=== PATIENT | female | born 2000 | race Caucasian/White ===

== ENCOUNTER → 2024-08-27 | Outpatient (CLI) | payer BC, SELFPAY ==
[2024-08-27 12:33] LABS: Protein, Urine (Random) 9.6 mg/dL (0.0-12.0); Protein:Creat Ratio 68 mg/g CRE (0-200)
[2024-08-30 21:07] LABS: Chlamydia By Nucleic Acid AMP Negative (Negative); Gonococcus By Nucleic Acid AMP Negative (Negative)
== END | disposition home or self-care (01) ==
LOC: LABSPEC 11:46
PROVIDERS: Referring Provider Obstetrics & Gynecology; Visit Provider Obstetrics & Gynecology
DX: O09.90 Supervision of high risk pregnancy, unspecified, unspecified trimester (principal); Z3A.00 Weeks of gestation of pregnancy not specified; Z12.4 Encounter for screening for malignant neoplasm of cervix; R03.0 Elevated blood-pressure reading, without diagnosis of hypertension
CPT/HCPCS: 82570; 84156; 87086; 87491; 87591; 88175; G0145

== ENCOUNTER → 2024-09-28 | Outpatient (CLI) | payer SELFPAY ==
[2024-09-28 12:13] LABS: Absolute Lymphocyte Count 1.53 X10^3/uL (0.83-4.51); Absolute Neutrophil Count 7.6 X10^3/uL (2.0-7.7); Basophil# 0.04 X10^3/uL; Basophil% 0.4 % (0-1); Eosinophil# 0.15 X10^3/uL; Eosinophils% 1.5 % (0-5); Hematocrit 37.6 % (37-47); Hemoglobin 12.5 g/dL (12.0-15.0); Lymphocyte # 1.53 X10^3/ul (0.83-4.51); Lymphocyte % 15.5 % (19-41); Mean Corp Hgb Conc 33.2 g/dL (32-36); Mean Corpuscular Hgb 28.7 pg (27.0-32.0); Mean Corpuscular Volume 86.4 fL (81-99); Mean Platelet Vol. 9.8 fl (6.2-12.0); Monocyte# 0.49 X10^3/uL; NRBC Flagged by Analyzer 0 % (0-5); Neutrophil # 7.59 X10^3/uL (2.7-7.7); Neutrophil % 76.8 % (47-70); Platelet Count 305 K/mm3 (150-450); RBC Distribution Width CV 13.3 % (11.6-14.6); RBC Distribution Width SD 41.6 fl (35.1-43.9); Red Blood Count 4.35 M/mm3 (4.2-5.4); White Blood Count 9.9 K/mm3 (4.4-11.0)
[2024-09-28 13:06] LABS: HIV Nonreactive (Nonreactive); Hepatitis B Surface Antigen Nonreactive (Nonreactive); Hepatitis C Antibody Nonreactive (Nonreactive); Rubella IgG REAC (Nonreactive); Syphilis Antibodies Nonreactive (Nonreactive)
[2024-09-28 13:18] LABS: ALB/GLOB Ratio 1.4 RATIO (0.9-2.4); AST(SGOT) 14 U/L (<=31); Alanine Aminotransfer ALT/SGPT 9 U/L (<=34); Albumin, Serum 4.3 g/dL (3.5-5.0); Alkaline Phosphatase 48 U/L (35-104); Anion Gap 13 (5-15); BUN 6 mg/dL (4-19); Calcium,Total 9.2 mg/dL (7.6-11.0); Carbon Dioxide 20.2 mmol/L (21.0-32.0); Chloride 103 mmol/L (98-108); Creatinine, Serum 0.51 mg/dL (0.70-1.20); EST Glomerular Filtration Rate 135 (>60); Glucose 79 mg/dL (70-99); Protein, Total 7.4 g/dL (5.9-8.4); Sodium Level 136 mmol/L (133-145); Total Bilirubin 0.83 mg/dL (0.00-1.30)
== END | disposition home or self-care (01) ==
PROVIDERS: Obstetrics & Gynecology; Visit Provider Nurse Practitioner Women's Health
DX: Z34.01 Encounter for supervision of normal first pregnancy, first trimester (principal)
CPT/HCPCS: 36415; 80053; 85025; 86703; 86762; 86780; 86803; 86850; 86900; 86901; 87340

== ENCOUNTER 2024-12-16 11:50 | Outpatient (CLI) | payer OTHER, SELFPAY ==
[2024-12-16] VITALS (14 sets, daily range): BP systolic 111–123; BP diastolic 75–84; PULSE 69–88; RESP 14; TEMP 36.9; O2SAT 98–100; BMI 24.5
[2024-12-16 12:41] LABS: Hematocrit 30.8 % (37-47); Hemoglobin 10.6 g/dL (12.0-15.0); Mean Corp Hgb Conc 34.4 g/dL (32-36); Mean Corpuscular Volume 87.5 fL (81-99); Mean Platelet Vol. 9.4 fl (6.2-12.0); Platelet Count 316 K/mm3 (150-450); RBC Distribution Width CV 12.6 % (11.6-14.6); RBC Distribution Width SD 40.1 fl (35.1-43.9); Red Blood Count 3.52 M/mm3 (4.2-5.4); White Blood Count 11.6 K/mm3 (4.4-11.0)
[2024-12-16 13:05] LABS: AST(SGOT) 15 U/L (<=31); Alanine Aminotransfer ALT/SGPT 9 U/L (<=34); Estimated Creatinine Clearance 172.78 ml/min (50-250); Uric Acid 3.5 mg/dL (2.6-6.0)
--- NOTE | 2024-12-16 13:44 | OB.TRI.PN_ITS ---
Progress Notes Date of Service: 12/17/24 Progress Note: Patient presents for triage evaluation secondary to elevated bloodpressure FHT: 140 Moderate variability reactive no decelerations category I tracing [place]: no regular Contractions Assessment and plan: blood pressures normal 24 weeks labs WNL reviewed preca utions reassuring fht, reassuring maternal and status patient discharged to home to follow-up as scheduled. See problem list details for additional plan information. Laboratory Studies: Laboratory Tests 12/16/24 Range/Units 12:30 WBC 11.6 H (4.4-11.0) K/mm3 RBC 3.52 L (4.2-5.4) M/mm3 Hgb 10.6 L (12.0-15.0) g/dL Hct 30.8 L (37-47) % MCV 87.5 (81-99) fL MCH 30.1 (27.0-32.0) pg MCHC 34.4 (32-36) g/dL RDW Std Deviation 40.1 (35.1-43.9) fl RDW Coeff of Kelsie 12.6 (11.6-14.6) % Plt Count 316 (150-450) K/mm3 MPV 9.4 (6.2-12.0) fl Creatinine 0.47 L (0.70-1.20) mg/dL Estim Creat Clear Calc 172.78 (50-250) ml/min Est GFR (MDRD) Non-Af 136 (>60) Uric Acid 3.5 (2.6-6.0) mg/dL AST 15 (<=31) U/L ALT 9 (<=34) U/L Charges/Coding Procedures Urinary/Genital 52xxx-59xxx: No Charge
[2024-12-16 14:00] LABS: Creatinine, Urine (random) 24.20 mg/dL (28.00-217.00); Protein, Urine (Random) < 6.0 mg/dL (0.0-12.0); Protein:Creat Ratio 233 mg/g CRE (0-200)
== END 2024-12-16 14:16 | disposition home or self-care (01) ==
LOC: WPOUT 12:12 → WP 12:13
PROVIDERS: Referring Provider Obstetrics & Gynecology; Visit Provider Obstetrics & Gynecology
DX: O99.891 Other specified diseases and conditions complicating pregnancy (principal); R03.0 Elevated blood-pressure reading, without diagnosis of hypertension; Z3A.24 24 weeks gestation of pregnancy
CPT/HCPCS: 36415; 59050; 82565; 82570; 84156; 84450; 84460; 84550; 85027; 99221; G0378

== ENCOUNTER 2025-01-11 09:30 | Outpatient (CLI) | payer OTHER, SELFPAY ==
[2025-01-11] VITALS (35 sets, daily range): BP systolic 113–154; BP diastolic 56–99; PULSE 72–141; RESP 12–18; TEMP 36.7–36.9; O2SAT 97–98; BMI 25.2
[2025-01-11 09:50] LABS: Hematocrit 32.8 % (37-47); Hemoglobin 11.2 g/dL (12.0-15.0); Immature Granulocytes Count 0.150 X10^3/uL (0.0-0.0); Mean Corp Hgb Conc 34.1 g/dL (32-36); Mean Corpuscular Volume 86.8 fL (81-99); Mean Platelet Vol. 9.4 fl (6.2-12.0); NRBC Flagged by Analyzer 0 % (0-5); Platelet Count 361 K/mm3 (150-450); RBC Distribution Width CV 12.7 % (11.6-14.6); RBC Distribution Width SD 40.1 fl (35.1-43.9); Red Blood Count 3.78 M/mm3 (4.2-5.4); White Blood Count 11.0 K/mm3 (4.4-11.0)
[2025-01-11 10:01] LABS: Creatinine, Urine (random) 133.00 mg/dL (28.00-217.00); Protein, Urine (Random) 30.0 mg/dL (0.0-12.0); Protein:Creat Ratio 226 mg/g CRE (0-200)
[2025-01-11 10:27] LABS: Glucose Challenge Gest 1H 50g 87 mg/dL (70-140); HIV Nonreactive (Nonreactive); Syphilis Antibodies Nonreactive (Nonreactive)
[2025-01-11 11:15] LABS: AST(SGOT) 15 U/L (<=31); Alanine Aminotransfer ALT/SGPT 10 U/L (<=34); Albumin, Serum 3.8 g/dL (3.5-5.0); Alkaline Phosphatase 102 U/L (35-104); Anion Gap 13 (5-15); BUN 7 mg/dL (4-19); BUN/Creat Ratio 12.0 RATIO (10-20); Calcium,Total 9.0 mg/dL (7.6-11.0); Carbon Dioxide 20.6 mmol/L (21.0-32.0); Chloride 103 mmol/L (98-108); Estimated Creatinine Clearance 147.65 ml/min (50-250); Globulin 3.3 g/dL (2.2-4.2); Glucose 86 mg/dL (70-99); Potassium 3.5 mmol/L (3.3-5.1)
--- NOTE | 2025-01-11 12:39 | US_ITS ---
PROCEDURE: LIVER 01/11/2025 REASON FOR EXAM: RUQ PAIN TECHNIQUE: Procedure Code: USLI Modality: US Procedure: LIVER COMPARISON: None FINDINGS: Liver: Liver measures 15.3 cm. There is echogenic structure within right hepatic lobe measuring 1.3 x 1.3 x 1.3 cm. Gallbladder: Unremarkable gallbladder with wall thickness of 2.2 mm. Common bile duct: Normal measuring 1.3 mm Pancreas: Visualized portions are sonographically unremarkable. Other: Mild right hydronephrosis.. Right kidney measures 11 cm. US/Liver IMPRESSION: Echogenic structure within right hepatic lobe measuring 1.3 cm. Findings are l ikely related to underlying hemangioma. MRI correlation on nonemergent basis can be obtained if clinically indicated. Mild right hydronephrosis. Reading Location: [id number]
--- NOTE | 2025-01-11 12:53 | US_ITS ---
PROCEDURE: OB LIMITED WITH BIOMETRICS 01/11/2025 REASON FOR EXAM: PRE-ECLAMPSIA TECHNIQUE: Procedure Code: USOBGROWTH Modality: US Procedure: OB LIMITED WITH BIOMETRICS COMPARISON: None FINDINGS Number: 1 Position: Vertex Placental Position: Posterior and not low-lying. Placental Abnormalities: No evidence of previa. DIMENSIONS: Biparietal Diameter: 7.4 cm: 29 weeks and 4 days: 84 percentile/ Head Circumference: 27.7 cm: 30 weeks and 2 days: 86 percentile/ Abdominal Circumference: 24.8 cm: 29 weeks and 0 days: 74 percentile/ Femur Length: 5.2 cm: 27 weeks and 4 days: 23rd percentile/ ESTIMATED WEIGHT: 1271 g plus/-188 g ESTIMATED WEIGHT PERCENTILE (24+ weeks): 65 ESTIMATED GESTATIONAL AGE: Baseline: 28 weeks and 0 days By Ultrasound: 29 weeks and 2 days ESTIMATED DATE OF DELIVERY: Baseline: April 05, 2024 By Ultrasound: March 27, 2025 BIOPHYSICAL ASSESSMENT: Amniotic Fluid Volume: 5.9 cm Amniotic Fluid Index: 15.5 cm (8-24 cm normal range) Cardiac Motion: 137 beats per minute (average) Trunk and Limb Motion: Present. MATERNAL ANATOMY: Adnexa: Neither maternal ovary is successfully identified. US/OB Limited With Biometrics IMPRESSION: Single live intrauterine gestation with mean gestational age of 29 weeks and 2 days. Reading Location: [place] [id number]
[2025-01-11] MEDS: Betamethasone/Betamethasone 30 MG/5 ML Vial 12 MG IM (13:33)
[2025-01-11] MEDS: Magnesium Sulfate 4gm/100mL 4 GM/100 ML IV.SOLN. IV (13:49)
[2025-01-11 14:00] LABS: Hematocrit 30.8 % (37-47); Hemoglobin 10.7 g/dL (12.0-15.0); Mean Corp Hgb Conc 34.7 g/dL (32-36); Mean Corpuscular Volume 86.3 fL (81-99); Mean Platelet Vol. 10.1 fl (6.2-12.0); Platelet Count 347 K/mm3 (150-450); RBC Distribution Width CV 12.9 % (11.6-14.6); RBC Distribution Width SD 40.0 fl (35.1-43.9); Red Blood Count 3.57 M/mm3 (4.2-5.4); White Blood Count 14.1 K/mm3 (4.4-11.0)
[2025-01-11 14:22] LABS: Creatinine, Urine (random) 60.40 mg/dL (28.00-217.00); Protein, Urine (Random) 13.9 mg/dL (0.0-12.0); Protein:Creat Ratio 230 mg/g CRE (0-200)
[2025-01-11 14:24] LABS: AST(SGOT) 16 U/L (<=31); Alanine Aminotransfer ALT/SGPT 9 U/L (<=34); Estimated Creatinine Clearance 198.07 ml/min (50-250); Uric Acid 3.2 mg/dL (2.6-6.0)
[2025-01-11 15:03] LABS: LDH 148 U/L (84-246)
--- NOTE | 2025-01-11 15:26 | NURSING ---
KATRIN Lane called UVALDO Dueñas to ask if magnesium sulfate could be stopped after 4 GM bolus in order for pt to go to ultrasound via w/c with , Emeterio. Newspaper Or Periodical Editor agreed and RN will restart after returning from ultrasound.
[2025-01-11] MEDS: Magnesium Sulfate 4gm/100mL 2 GM/50 ML IV.SOLN. IV (15:46)
[2025-01-11] MEDS: Magnesium Sulfate 20 GM/500 ML BAG IV ×2 (15:56→16:00)
--- NOTE | 2025-01-11 16:23 | HP.PCM.OB_ITS ---
HPI - General HPI Narrative LEONOR HAGER, is a 24 y/o @ 28 weeks who presents to L&D from the office due to bp's in the 140'/90's, epigastric pain, and 7/10 headache. She denies visual changes. consultation with MFM recommended to start magnesium sulfate and steriods. They are aware that her labs are normal and protein is negative. ultrasound shows adequate growth and fluid with normal placentation RUQ ultrasound shows only a 1.3 cm hemangioma and mild right hydro (11cm) Maternal Data Information ZACK Calculator Estimated Delivery Date Method Current WG Current Estimate 04/05/25 LMP (Certain) 28w 0d Other Estimates 04/03/25 Ultrasound #1 28w 2d PFSH PFSH Medical History History of migraine headaches Home Medications ?Medication ?Instructions ?Recorded ?Last Taken ?Type docosahexaenoic acid 200 mg mg PO supplement 08/13/24 01/10/25 21:00 History capsule ( DHA) 200 mg Allergy/AdvReac Type Severity Reaction Status Date / Time latex Allergy Mild Rash Verified 01/11/25 09:25 Family History Father Asthma Mother Blood clot in abdominal vein Hypertension Factor V Leiden Grandmother Breast cancer Grandfather Hypertension Myocardial infarction, Onset Age: 42 and at age 61 Grandfather Myocardial infarction Social History adopted: No household members: spouse current occupational status: student 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 current occupational exposures/hazards: No pets and animals: No history of recent travel: Yes ( - June 2024) out of state: Yes out of country: No sexually active: Yes Smoking Status: Never smoker alcohol intake: never substance use type: does not use well-balanced diet: daily or most days caffeine: Yes Type: coffee eating out: 1-3 times/week during the past year weight has: remained stable what type of physical activity do you participate in: walking frequency: 3-4 times per week duration: 15-30 minutes/day melvina/protestant: Pentecostalism seatbelt use: always do you feel safe at home: Yes additional social history: : Emeterio - [employer]: Battery Builder History 1 Elective abortions Hx Para 0 Spontaneous abortions Hx # Term Pregnancies Ectopic pregnancies Hx # Pregnancies Multiple births # of living children Visit Details Expected Delivery Route/Plan Labor Preferences- CB/BF classes: [] labor support person: [] labor intervention preferences: [] pain management options preferred: [] cut cord/dad catch: [] : [] PP control planned: [] discussed possible routes of delivery and associated risks: [] special requests: [] Plans Covid status: [] Flu vaccine: [] Tdap vaccine: declines Rhogam: na LARC form signed:yes Problem list reviewed and updated with the most current plan of care details and appropriate orders placed. Relevant counseling for the gestational age provided. Continue routine care and follow up unless otherwise noted in visit notes/problem list details OB Flowsheet Initial Weight: Not Recorded Date -?-?-?-?-?-?-?-?-?-?-?-?- EGA Weight BP Urine Prot -?-?-?-?-?-?-?-?-?-?-?-?- Glucose FHR FuHt Pres Dilation -?-?-?-?-?-?-?-?-?-?-?-?- Effaced St Visit Note 08/27/24 -?-?-?-?-?-?-?-?-?-?-?-?- 8w 3d 130 lb 6 oz 126/75 -?-?-?-?-?-?-?-?-?-?-?-?- 161 -?-?-?-?-?-?-?-?-?-?-?-?- JV- CRL is consi stent with LMP. Desires NIPT. 09/27/24 -?-?-?-?-?-?-?-?-?-?-?-?- 12w 6d 134 lb 2 oz 119/86 Nega tive -?-?-?-?-?-?-?-?-?-?-?-?- Negative 168 -?-?-?-?-?-?-?-?-?-?-?-?- MH-No VB. Nausea improving. Br US to confirm FHT. PN labs and NIPT today 11/26/24 -?-?-?-?-?-?-?-?-?-?-?-?- 21w 3d 146 lb 3 oz 136/86 Nega tive -?-?-?-?-?-?-?-?-?-?--?-?- Negative 150 -?-?-?-?-?-?-?-?-?-?-?-?- SM- no vb lof go od fm no regular ctx nl anatomy 12/23/24 -?-?-?-?-?-?-?-?-?-?-?-?- 25w 2d 151 lb 8 oz 132/87 Nega tive -?-?-?-?-?-?-?-?-?-?-?-?- Negative 155 25 -?-?-?-?-?-?-?-?-?-?-?-?- KW- no vb/crampi ng. good fm. glucose next visit. 01/11/25 -?-?-?-?-?-?-?-?-?-?-?-?- 28w 0d 156 lb 2 oz 144/96 Trac e -?-?-?-?-?-?-?-?-?-?-?-?- Negative 152 27 -?-?-?-?-?-?-?-?-?-?-?-?- MH-No VB. Good F M. Headache, elevated BP and proteinuria-labs and sent to [facility]. FOWLER Constitutional Constitutional: Denies change in weight, fatigue, fever(s), poor appetite or weakness Eyes Eyes: Denies blurry vision, change in vision, seeing flashes or spots in vision ENT HEENT: Denies dizziness, headache(s), loss taste/smell or sore throat Cardiovascular Cardiovascular: Denies chest pain, dizziness, dyspnea, irregular heart rhythm, leg edema, palpitations, rapid heart rate or vomiting Respiratory/Chest Respiratory/Chest: Denies chest tightness, cough, dyspnea or breast pain Gastrointestinal Gastrointestinal: Denies anorexia, constipation, cramping, diarrhea, hemorrhoids, vomiting or weight changes Genitourinary Genitourinary: Denies dysuria, flank pain, genital lesions, genital pain, urinary frequency or urinary urgency Musculoskeletal Musculoskeletal: Denies back pain, difficulty walking, joint pain, limited range of motion, muscle cramps or numbness Integumentary Integumentary: Denies lesions or unusual bruising Neurologic Neurologic: Denies abnormal movements, abnormal speech, dizziness, numbness, seizure-like activity or syncope Psychiatric Psychiatric: Denies anxiety, behavioral changes, change in appetite, change in libido, cognitive impairment, confusion, depression, difficulty concentrating, hallucinations or suicidal thoughts Endocrine Endocrinology: Denies excessive sweating, polydipsia or polyuria Hematologic/Lymphatic Hematologic/Lymphatic: Denies easy bleeding, easy bruising or lymphadenopathy Allergic/Immunologic Allergic/Immunologic: Denies itchy eyes, lip swelling, seasonal rhinorrhea, rhinitis, throat swelling, tongue swelling, eczemia, wheezing or asthma Vital Signs Vital Signs Vital Signs: 01/11/25 10:08 01/11/25 10:08 01/11/25 10:08 Temperature Temperature Source Temporal Pulse Rate 99 Respiratory Rate Respiratory Effort Respiratory Depth Respiratory Pattern Blood Pressure 128/89 H Blood Pressure Mean BP Systolic 128 BP Diastolic 89 Blood Pressure Source Blood Pressure Position Blood Pressure Location Pulse Ox Oxygen Delivery Method 01/11/25 10:08 01/11/25 10:08 01/11/25 10:08 Temperature 98.2 F Temperature Source Pulse Rate Respiratory Rate 12 Respiratory Effort Respiratory Depth Respiratory Pattern Blood Pressure Blood Pressure Mean BP Systolic BP Diastolic Blood Pressure Source Blood Pressure Position Blood Pressure Location Pulse Ox 98 Oxygen Delivery Method 01/11/25 10:17 01/11/25 10:17 01/11/25 10:32 Temperature Temperature Source Pulse Rate 105 H Respiratory Rate Respiratory Effort Respiratory Depth Respiratory Pattern Blood Pressure 122/84 H 126/96 H Blood Pressure Mean BP Systolic 122 126 BP Diastolic 84 96 Blood Pressure Source Blood Pressure Position Blood Pressure Location Pulse Ox Oxygen Delivery Method 01/11/25 10:32 01/11/25 10:48 01/11/25 10:48 Temperature Temperature Source Pulse Rate 88 85 Respiratory Rate Respiratory Effort Respiratory Depth Respiratory Pattern Blood Pressure 113/76 Blood Pressure Mean BP Systolic 113 BP Diastolic 76 Blood Pressure Source Blood Pressure Position Blood Pressure Location Pulse Ox Oxygen Delivery Method 01/11/25 11:02 01/11/25 11:02 01/11/25 11:17 Temperature Temperature Source Pulse Rate 77 Respiratory Rate Respiratory Effort Respiratory Depth Respiratory Pattern Blood Pressure 115/78 122/82 H Blood Pressure Mean BP Systolic 115 122 BP Diastolic 78 82 Blood Pressure Source Blood Pressure Position Blood Pressure Location Pulse Ox Oxygen Delivery Method 01/11/25 11:17 01/11/25 11:32 01/11/25 11:32 Temperature Temperature Source Pulse Rate 72 75 Respiratory Rate Respiratory Effort Respiratory Depth Respiratory Pattern Blood Pressure 114/77 Blood Pressure Mean BP Systolic 114 BP Diastolic 77 Blood Pressure Source Blood Pressure Position Blood Pressure Location Pulse Ox Oxygen Delivery Method 01/11/25 11:47 01/11/25 11:47 01/11/25 12:02 Temperature Temperature Source Pulse Rate 78 Respiratory Rate Respiratory Effort Respiratory Depth Respiratory Pattern Blood Pressure 114/74 117/74 Blood Pressure Mean BP Systolic 114 117 BP Diastolic 74 74 Blood Pressure Source Blood Pressure Position Blood Pressure Location Pulse Ox Oxygen Delivery Method 01/11/25 12:02 01/11/25 12:17 01/11/25 12:17 Temperature Temperature Source Pulse Rate 85 83 Respiratory Rate Respiratory Effort Respiratory Depth Respiratory Pattern Blood Pressure 118/77 Blood Pressure Mean BP Systolic 118 BP Diastolic 77 Blood Pressure Source Blood Pressure Position Blood Pressure Location Pulse Ox Oxygen Delivery Method 01/11/25 12:32 01/11/25 12:32 01/11/25 12:50 Temperature Temperature Source Temporal Pulse Rate 81 Respiratory Rate Respiratory Effort Respiratory Depth Respiratory Pattern Blood Pressure 126/79 H Blood Pressure Mean BP Systolic 126 BP Diastolic 79 Blood Pressure Source Blood Pressure Position Blood Pressure Location Pulse Ox Oxygen Delivery Method 01/11/25 13:36 01/11/25 13:36 01/11/25 13:36 Temperature Temperature Source Temporal Pulse Rate 93 Respiratory Rate Respiratory Effort Respiratory Depth Respiratory Pattern Blood Pressure 122/60 H Blood Pressure Mean BP Systolic 122 BP Diastolic 60 Blood Pressure Source Blood Pressure Position Blood Pressure Location Pulse Ox Oxygen Delivery Method 01/11/25 13:36 01/11/25 13:36 01/11/25 13:36 Temperature 98.3 F Temperature Source Pulse Rate Respiratory Rate 18 Respiratory Effort Respiratory Depth Respiratory Pattern Blood Pressure Blood Pressure Mean BP Systolic BP Diastolic Blood Pressure Source Blood Pressure Position Blood Pressure Location Pulse Ox 97 Oxygen Delivery Method 01/11/25 13:50 01/11/25 13:50 01/11/25 13:52 Temperature 98.1 F Temperature Source Temporal Temporal Pulse Rate 89 Respiratory Rate 16 Respiratory Effort Normal Non-Labored Respiratory Depth Normal Respiratory Pattern Normal Blood Pressure 135/79 H 135/79 H Blood Pressure Mean 97 BP Systolic 135 BP Diastolic 79 Blood Pressure Source Monitor Blood Pressure Position Semi-Fowlers Blood Pressure Location Left Arm Pulse Ox 98 Oxygen Delivery Method Room Air 01/11/25 13:52 01/11/25 13:54 01/11/25 13:54 Temperature Temperature Source Pulse Rate 89 87 Respiratory Rate Respiratory Effort Respiratory Depth Respiratory Pattern Blood Pressure Blood Pressure Mean BP Systolic BP Diastolic Blood Pressure Source Blood Pressure Position Blood Pressure Location Pulse Ox 98 Oxygen Delivery Method 01/11/25 14:07 01/11/25 14:07 01/11/25 14:09 Temperature Temperature Source Pulse Rate 89 84 Respiratory Rate Respiratory Effort Respiratory Depth Respiratory Pattern Blood Pressure 139/84 H Blood Pressure Mean BP Systolic 139 BP Diastolic 84 Blood Pressure Source Blood Pressure Position Blood Pressure Location Pulse Ox Oxygen Delivery Method 01/11/25 14:09 01/11/25 15:30 01/11/25 15:30 Temperature Temperature Source Pulse Rate 88 Respiratory Rate Respiratory Effort Respiratory Depth Respiratory Pattern Blood Pressure 114/80 Blood Pressure Mean BP Systolic 114 BP Diastolic 80 Blood Pressure Source Blood Pressure Position Blood Pressure Location Pulse Ox 97 Oxygen Delivery Method 01/11/25 15:46 01/11/25 16:00 01/11/25 16:00 Temperature 98.5 F Temperature Source Temporal Temporal Pulse Rate 93 108 H Respiratory Rate 14 16 Respiratory Effort Respiratory Depth Respiratory Pattern Blood Pressure 123/83 H 124/85 H Blood Pressure Mean 96 98 BP Systolic BP Diastolic Blood Pressure Source Monitor Monitor Blood Pressure Position Semi-Fowlers Semi-Fowlers Blood Pressure Location Left Arm Pulse Ox 98 98 Oxygen Delivery Method Room Air Room Air 01/11/25 16:01 01/11/25 16:01 01/11/25 16:05 Temperature Temperature Source Pulse Rate 91 89 Respiratory Rate Respiratory Effort Respiratory Depth Respiratory Pattern Blood Pressure 123/83 H Blood Pressure Mean BP Systolic 123 BP Diastolic 83 Blood Pressure Source Blood Pressure Position Blood Pressure Location Pulse Ox Oxygen Delivery Method 01/11/25 16:05 01/11/25 16:10 01/11/25 16:10 Temperature Temperature Source Pulse Rate 97 Respiratory Rate Respiratory Effort Respiratory Depth Respiratory Pattern Blood Pressure Blood Pressure Mean BP Systolic BP Diastolic Blood Pressure Source Blood Pressure Position Blood Pressure Location Pulse Ox 97 97 Oxygen Delivery Method 01/11/25 16:11 01/11/25 16:11 01/11/25 16:15 Temperature Temperature Source Pulse Rate 95 95 Respiratory Rate Respiratory Effort Respiratory Depth Respiratory Pattern Blood Pressure 124/85 H Blood Pressure Mean BP Systolic 124 BP Diastolic 85 Blood Pressure Source Blood Pressure Position Blood Pressure Location Pulse Ox Oxygen Delivery Method 01/11/25 16:15 01/11/25 16:15 01/11/25 16:15 Temperature 98.1 F Temperature Source Temporal Temporal Pulse Rate 94 Respiratory Rate 16 Respiratory Effort Respiratory Depth Respiratory Pattern Blood Pressure Blood Pressure Mean BP Systolic BP Diastolic Blood Pressure Source Monitor Blood Pressure Position Semi-Fowlers Blood Pressure Location Left Arm Pulse Ox 97 98 Oxygen Delivery Method Room Air Weight Weight: 156 lb 4.924 oz Body Mass Index (BMI) 25.2 Physical Exam Const alert, oriented x3, no apparent distress and healthy appearing General Appearance: cooperative; Negative for anxious HEENT normocephalic Face and Sinus: normal facial exam Eyes EOMs intact bilaterally and no scleral icterus General Eye: normal appearance of both eyes Neck full ROM and supple Lymph Lymphatic: no lymphadenopathy noted Resp normal respiratory effort Effort and Inspection: able to speak in complete sentences Cardio regular rate GI soft to palpation and non-tender Inspection: gravid Palpation: soft; Negative for tender Extremity normal to inspection, full ROM and no clubbing, cyanosis or edema General Extremity: Negative for calf tenderness or edema Skin Lesions: no lesions Rashes: no rashes Psych mental status grossly normal Labs Labs Labs: Blood Type B POSITIVE Antibody Screen NEGATIVE Hct 30.8 % (37-47) L Hgb 10.7 g/dL (12.0-15.0) L Obstetrics Ultrasound Syphilis Total Ab Nonreactive (Nonreactive) Rubella IgG Antibody REAC (Nonreactive) Hep Bs Antigen Nonreactive (Nonreactive) Hepatitis C Antibody Nonreactive (Nonreactive) Chlamydia DNA (ENRIQUE) Negative (Negative) N.gonorrhoeae DNA (ENRIQUE) Negative (Negative) HIV 1&2 Antibody Nonreactive (Nonreactive) Glucose 1 Hr 50 gm 87 mg/dL (70-140) Assessment & Plan (1) Elevated blood pressure affecting in second trimester, antepartum: COMMENT: labs. to [facility] (2) Headache in : QUALIFIERS: Trimester: second trimester Qualified Code(s): O26.892 - Other specified related conditions, second trimester; R51.9 - Headache, unspecified COMMENT: no vision changes. To [facility], labs (3) Supervision of high-risk : QUALIFIERS: Trimester: first trimester Qualified Code(s): O09.91 - Supervision of high risk , unspecified, first trimester COMMENT: PRR G1, ZACK 04/05/25, boy Onofre : Emeterio (4) : QUALIFIERS: Weeks of gestation: 25 weeks Qualified Code(s): Z3A.25 - 25 weeks gestation of COMMENT: declined carrier and ntd screen. NIPT-low risk, gender male. nl anatomy. (5) Fibromyalgia: (6) Epigastric pain during , antepartum: PLAN: Plan starting mag and steroids, q 2 hr bp assessments. (now normal pressures) will re-evaluate labs tomorrow collecting 24 hour urine.
[2025-01-11 17:30] LABS: Color, Urine Yellow (Yellow); Glucose, Dipstick Normal (Normal); Leukocyte Esterase-Dipstick Negative /ul (Negative); Nitrite-Dipstick Negative (Negative); Occult Blood-Urine Negative /ul (Negative); Protein-Dipstick Negative (Negative); Specific Gravity, Urine 1.025 (1.002-1.030); Urine Bilirubin Dipstick Negative (Negative)
[2025-01-11 17:35] LABS: Ketone-Dipstick 150 mg/dl (Negative)
[2025-01-11 17:58] LABS: Fetal Fibronectin Negative; Record Kit Lot#, fFN J4921
== END 2025-01-11 19:15 | disposition short-term general hospital (02) ==
LOC: BWCLAB 09:36 → WPOUT 10:04 → WP 10:06
PROVIDERS: Obstetrics & Gynecology; Referring Provider Nurse Practitioner Women's Health; Visit Provider Advanced Practice Midwife
DX: O99.891 Other specified diseases and conditions complicating pregnancy (principal); R03.0 Elevated blood-pressure reading, without diagnosis of hypertension; Z3A.28 28 weeks gestation of pregnancy; R51.9 Headache, unspecified; M79.7 Fibromyalgia; R10.13 Epigastric pain; O09.93 Supervision of high risk pregnancy, unspecified, third trimester
CPT/HCPCS: 96365; 96366; 96376; 96372; 36415; 59025; 59050; 76705; 76816; 80053; 81002; 82565; 82570; 82731; 82950; 83615; 84156; 84450; 84460; 84550; 85025; 85027; 86703; 86780; 87086; 87088; 99221; G0378; J0702

== ENCOUNTER 2025-01-21 14:05 | Outpatient (CLI) | payer OTHER, SELFPAY ==
[2025-01-21] VITALS (7 sets, daily range): BP systolic 116–128; BP diastolic 79–87; PULSE 78–98; RESP 16; TEMP 37.3; O2SAT 97–98; BMI 24.9
[2025-01-21 14:45] LABS: Hematocrit 30.1 % (37-47); Hemoglobin 10.5 g/dL (12.0-15.0); Mean Corp Hgb Conc 34.9 g/dL (32-36); Mean Corpuscular Volume 84.3 fL (81-99); Mean Platelet Vol. 9.6 fl (6.2-12.0); Platelet Count 365 K/mm3 (150-450); RBC Distribution Width CV 12.6 % (11.6-14.6); RBC Distribution Width SD 37.9 fl (35.1-43.9); Red Blood Count 3.57 M/mm3 (4.2-5.4); White Blood Count 13.7 K/mm3 (4.4-11.0)
[2025-01-21 15:16] LABS: AST(SGOT) 13 U/L (<=31); Alanine Aminotransfer ALT/SGPT 9 U/L (<=34); Creatinine, Urine (random) 88.50 mg/dL (28.00-217.00); Estimated Creatinine Clearance 133.13 ml/min (50-250); Protein, Urine (Random) 16.3 mg/dL (0.0-12.0); Protein:Creat Ratio 184 mg/g CRE (0-200); Uric Acid 3.5 mg/dL (2.6-6.0)
--- NOTE | 2025-01-21 15:26 | OB.TRI.PN_ITS ---
Progress Notes Date of Service: 01/21/25 Progress Note: Patient presents for triage evaluation secondary to elevated BP at home at 28 weeks FHT: 140 Moderate variability reactive no decelerations category I tracing [place]: no Contractions Assessment and plan: normal Pre e labs, Normal serial BPs, Reactive NST, r eassuring maternal and status patient discharged to home to follow-up in office . See problem list details for additional plan information. Laboratory Studies: Laboratory Tests 01/21/25 Range/Units 14:25 WBC 13.7 H (4.4-11.0) K/mm3 RBC 3.57 L (4.2-5.4) M/mm3 Hgb 10.5 L (12.0-15.0) g/dL Hct 30.1 L (37-47) % MCV 84.3 (81-99) fL MCH 29.4 (27.0-32.0) pg MCHC 34.9 (32-36) g/dL RDW Std Deviation 37.9 (35.1-43.9) fl RDW Coeff of Kelsie 12.6 (11.6-14.6) % Plt Count 365 (150-450) K/mm3 MPV 9.6 (6.2-12.0) fl Creatinine 0.61 L (0.70-1.20) mg/dL Estim Creat Clear Calc 133.13 (50-250) ml/min Est GFR (MDRD) Non-Af 128 (>60) Uric Acid 3.5 (2.6-6.0) mg/dL AST 13 (<=31) U/L ALT 9 (<=34) U/L U Random Total Protein 16.3 H (0.0-12.0) mg/dL Urine Creatinine 88.50 (28.00-217.00) mg/dL Protein/Creatinin Ratio 184 (0-200) mg/g CRE Charges/Coding Multi Select Codes Urinary/Genital Urinary/Genital CPT Codes: 09337-69 non-stress test Interp Assessment & Plan (1) Epigastric pain during , antepartum: (2) Elevated blood pressure affecting in second trimester, antepartum: COMMENT: normal labs. normal BPS on unit, reactive NST (3) Headache in : QUALIFIERS: Trimester: second trimester Qualified Code(s): O26.892 - Other specified related conditions, second trimester; R51.9 - Headache, unspecified COMMENT: no vision changes. To [facility], labs (4) Supervision of high-risk : QUALIFIERS: Trimester: first trimester Qualified Code(s): O09.91 - Supervision of high risk , unspecified, first trimester COMMENT: PRR G1, ZACK 04/05/25, boy Onofre : Emeterio (5) : QUALIFIERS: Weeks of gestation: 28 weeks Qualified Code(s): Z3A.28 - 28 weeks gestation of COMMENT: declined carrier and ntd screen. NIPT-low risk, gender male. nl anatomy. (6) Fibromyalgia:
== END 2025-01-21 15:33 | disposition home or self-care (01) ==
LOC: WPOUT 14:12 → WP 14:13
PROVIDERS: Referring Provider Advanced Practice Midwife; Visit Provider Advanced Practice Midwife
DX: O99.891 Other specified diseases and conditions complicating pregnancy (principal); R03.0 Elevated blood-pressure reading, without diagnosis of hypertension; Z3A.28 28 weeks gestation of pregnancy
CPT/HCPCS: 36415; 59025; 59050; 82565; 82570; 84156; 84450; 84460; 84550; 85027; 99221; G0378

== ENCOUNTER 2025-02-05 12:10 | Outpatient (CLI) | payer OTHER, SELFPAY ==
[2025-02-05 12:23] VITALS: BMI 25.8
[2025-02-05 12:44] LABS: Mucous, Urine 0 SEEN /hpf (<or=2+); Red Blood Cells-Urine 0 SEEN /hpf (0-5)
[2025-02-05 12:47] VITALS: BP 129/78; PULSE 93
[2025-02-05 12:48] VITALS: PULSE 100; RESP 18; TEMP 37; O2SAT 98
[2025-02-05 12:56] LABS: Color, Urine Yellow (Yellow); Glucose, Dipstick Normal (Normal); Ketone-Dipstick 5 mg/dl (Negative); Leukocyte Esterase-Dipstick 100 /ul (Negative); Nitrite-Dipstick Negative (Negative); Occult Blood-Urine Negative /ul (Negative); Protein-Dipstick 15 mg/dl (Negative); Specific Gravity, Urine 1.015 (1.002-1.030); Urine Bilirubin Dipstick Negative (Negative)
[2025-02-05 13:06] LABS: Squamous Epithelial Cells - UA 5-10 SEEN /hpf (5-10)
[2025-02-05 13:18] LABS: Fetal Fibronectin Negative; Record Kit Lot#, fFN L4921
--- NOTE | 2025-02-05 13:57 | OB.TRI.HP_ITS ---
HPI - General HPI Narrative LEONOR HAGER, is a 24 y/o @ 31 weeks 4 days who presents to L&D to rule out labor. She was transported at 28 weeks for threatened labor and she was sent home. her cervix per nurse exam is .5 cm today. She denies loss of fluid, vaginal bleeding, or dec fm. FFN was negative UA normal Maternal Data Information ZACK Calculator Estimated Delivery Date Method Current WG Current Estimate 04/05/25 LMP (Certain) 31w 4d Other Estimates 04/03/25 Ultrasound #1 31w 6d PFSH PFSH Medical History History of migraine headaches Home Medications Medication Instructions Recorded Last Taken Type docosahexaenoic acid 200 mg 200 mg PO DAILY supplement 08/13/24 01/10/25 21:00 History capsule ( DHA) 200 mg Allergy/AdvReac Type Severity Reaction Status Date / Time latex Allergy Mild Rash Verified 02/05/25 12:49 Family History Father Asthma Mother Blood clot in abdominal vein Hypertension Factor V Leiden Grandmother Breast cancer Grandfather Hypertension Myocardial infarction, Onset Age: 42 and at age 61 Grandfather Myocardial infarction Social History adopted: No household members: spouse current occupational status: student 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 current occupational exposures/hazards: No pets and animals: No history of recent travel: Yes ( - June 2024) out of state: Yes out of country: No sexually active: Yes Smoking Status: Never smoker alcohol intake: never substance use type: does not use well-balanced diet: daily or most days caffeine: Yes Type: coffee eating out: 1-3 times/week during the past year weight has: remained stable what type of physical activity do you participate in: walking frequency: 3-4 times per week duration: 15-30 minutes/day melvina/ad[employer]: [employer] seatbelt use: always do you feel safe at home: Yes additional social history: : Emeterio - [employer]: Nurse Practitioner History 1 Elective abortions Hx Para 0 Spontaneous abortions Hx # Term Pregnancies Ectopic pregnancies Hx # Pregnancies Multiple births # of living children Visit Details Expected Delivery Route/Plan Labor Preferences- CB/BF classes: [] labor support person: [] labor intervention preferences: [] pain management options preferred: [] cut cord/dad catch: [] : [] PP control planned: [] discussed possible routes of delivery and associated risks: [] special requests: [] Plans Covid status: [] Flu vaccine: [] Tdap vaccine: declines Rhogam: na LARC form signed:yes Problem list reviewed and updated with the most current plan of care details and appropriate orders placed. Relevant counseling for the gestational age provided. Continue routine care and follow up unless otherwise noted in visit notes/problem list details OB Flowsheet Initial Weight: Not Recorded Date - - - - - - - - - - - - - EGA Weight BP Urine Prot - - - - - - - - - - - - - Glucose FHR FuHt Pres Dilation - - - - - - - - - - - - - Effaced St Visit Note 08/27/24 - - - - - - - - - - - - - 8w 3d 130 lb 6 oz 126/75 - - - - - - - - - - - - - 161 - - - - - - - - - - - - - JV- CRL is consi stent with LMP. Desires NIPT. 09/27/24 - - - - - - - - - - - - - 12w 6d 134 lb 2 oz 119/86 Nega tive - - - - - - - - - - - - - Negative 168 - - - - - - - - - - - - - MH-No VB. Nausea improving. Br US to confirm FHT. PN labs and NIPT today 11/26/24 - - - - - - - - - - - - - 21w 3d 146 lb 3 oz 136/86 Nega tive - - - - - - - - - - - - - Negative 150 - - - - - - - - - - - - - SM- no vb lof go od fm no regular ctx nl anatomy 12/23/24 - - - - - - - - - - - - - 25w 2d 151 lb 8 oz 132/87 Nega tive - - - - - - - - - - - - - Negative 155 25 - - - - - - - - - - - - - KW- no vb/crampi ng. good fm. glucose next visit. 01/11/25 - - - - - - - - - - - - - 28w 0d 156 lb 2 oz 144/96 Trac e - - - - - - - - - - - - - Negative 152 27 - - - - - - - - - - - - - -No VB. Jose Yesenia Mitchell. Headache, elevated BP and proteinuria-labs and sent to . 01/17/25 - - - - - - - - - - - - - 28w 6d 154 lb 4 oz 155/94 135/97 139/88 Negative - - - - - - - - - - - - - Negative 145 29 - - - - - - - - - - - - - SM- no vb lof go od fm no regular ctx checking bps at home and 130s over 80s, was admitted last week - at [facility] 01/27/25 - - - - - - - - - - - - - 30w 2d 157 lb 145/85 121/88 - - - - - - - - - -- - - - 140 30 - - - - - - - - - - - - - SM- no vb lof go od fm n oregular ct some hip pain. repe tabps WNL. ROS Constitutional Constitutional: Reports systems reviewed and no addt'l complaints, except as documented Gastrointestinal Gastrointestinal: Denies bloating, constipation, cramping, diarrhea, nausea or vomiting Genitourinary Genitourinary: Reports other Details: Denies vaginal odor, vaginal bleeding, or vaginal discharge ; Denies difficulty urinating or flank pain Physical Exam HEENT normocephalic Resp normal respiratory effort and normal air movement no CVA tenderness Extremity normal to inspection General Extremity: edema bilateral (trace ) NST FHR Rate Baby A Baseline: 140 Variability:: Moderate Accelerations:: 15 x 15 Decelerations:: None NST Reactive:: Yes FHR Category:: Category I Assessment & Plan (1) Threatened labor: PLAN: no signs of labor today ok to dc to home and keep follow up appts discussed PTL precautions Charges/Coding Multi Select Codes Visit Charges Office Visit/Consults: 85209 OV L3 Est 20min Urinary/Genital Urinary/Genital CPT Codes: 01897-12 non-stress test Interp
--- NOTE | 2025-02-05 13:57 | OB.TRI.NOTE ---
HPI - General HPI Narrative LEONOR HAGER, is a 24 y/o @ 31 weeks 4 days who presents to L&D to rule out labor. She was transported at 28 weeks for threatened labor and she was sent home. her cervix per nurse exam is .5 cm today. She denies loss of fluid, vaginal bleeding, or dec fm. FFN was negative UA normal Maternal Data Information ZACK Calculator Estimated Delivery Date Method Current WG Current Estimate 04/05/25 LMP (Certain) 31w 4d Other Estimates 04/03/25 Ultrasound #1 31w 6d PFSH PFSH Medical History History of migraine headaches Home Medications Medication Instructions Recorded Last Taken Type docosahexaenoic acid 200 mg 200 mg PO DAILY supplement 08/13/24 01/10/25 21:00 History capsule ( DHA) 200 mg Allergy/AdvReac Type Severity Reaction Status Date / Time latex Allergy Mild Rash Verified 02/05/25 12:49 Family History Father Asthma Mother Blood clot in abdominal vein Hypertension Factor V Leiden Grandmother Breast cancer Grandfather Hypertension Myocardial infarction, Onset Age: 42 and at age 61 Grandfather Myocardial infarction Social History adopted: No household members: spouse current occupational status: student 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 current occupational exposures/hazards: No pets and animals: No history of recent travel: Yes ( - June 2024) out of state: Yes out of country: No sexually active: Yes Smoking Status: Never smoker alcohol intake: never substance use type: does not use well-balanced diet: daily or most days caffeine: Yes Type: coffee eating out: 1-3 times/week during the past year weight has: remained stable what type of physical activity do you participate in: walking frequency: 3-4 times per week duration: 15-30 minutes/day melvina/denominational: Caodaism seatbelt use: always do you feel safe at home: Yes additional social history: : 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 History 1 Elective abortions Hx Para 0 Spontaneous abortions Hx # Term Pregnancies Ectopic pregnancies Hx # Pregnancies Multiple births # of living children Visit Details Expected Delivery Route/Plan Labor Preferences- CB/BF classes: [] labor support person: [] labor intervention preferences: [] pain management options preferred: [] cut cord/dad catch: [] : [] PP control planned: [] discussed possible routes of delivery and associated risks: [] special requests: [] Plans Covid status: [] Flu vaccine: [] Tdap vaccine: declines Rhogam: na LARC form signed:yes Problem list reviewed and updated with the most current plan of care details and appropriate orders placed. Relevant counseling for the gestational age provided. Continue routine care and follow up unless otherwise noted in visit notes/problem list details OB Flowsheet Initial Weight: Not Recorded Date <del> </del> EGA Weight BP Urine Prot <del> </del> Glucose FHR FuHt Pres Dilation <del> </del> Effaced St Visit Note 08/27/24 <del> </del> 8w 3d 130 lb 6 oz 126/75 <del> </del> 161 <del> </del> JV- CRL is consistent with LMP. Desires NIPT. 09/27/24 <del> </del> 12w 6d 134 lb 2 oz 119/86 Negative <del> </del> Negative 168 <del> </del> MH-No VB. Nausea improving. Br US to confirm FHT. PN labs and NIPT today 11/26/24 <del> </del> 21w 3d 146 lb 3 oz 136/86 Negative <del> </del> Negative 150 <del> </del> SM- no vb lof good fm no regular ctx nl anatomy 12/23/24 <del> </del> 25w 2d 151 lb 8 oz 132/87 Negative <del> </del> Negative 155 25 <del> </del> KW- no vb/cramping. good fm. glucose next visit. 01/11/25 <del> </del> 28w 0d 156 lb 2 oz 144/96 Trace <del> </del> Negative 152 27 <del> </del> MH-No VB. Good FM. Headache, elevated BP and proteinuria-labs and sent to [facility]. 01/17/25 <del> </del> 28w 6d 154 lb 4 oz 155/94 135/97 139/88 Negative <del> </del> Negative 145 29 <del> </del> SM- no vb lof good fm no regular ctx checking bps at home and 130s over 80s, was admitted last week - at [facility] 01/27/25 <del> </del> 30w 2d 157 lb 145/85 121/88 <del> </del> 140 30 <del> </del> SM- no vb lof good fm n oregular ct some hip pain. repe tabps WNL. ROS Constitutional Constitutional: Reports systems reviewed and no addt'l complaints, except as documented Gastrointestinal Gastrointestinal: Denies bloating, constipation, cramping, diarrhea, nausea or vomiting Genitourinary Genitourinary: Reports other Details: Denies vaginal odor, vaginal bleeding, or vaginal discharge ; Denies difficulty urinating or flank pain Physical Exam HEENT normocephalic Resp normal respiratory effort and normal air movement no CVA tenderness Extremity normal to inspection General Extremity: edema bilateral (trace ) NST FHR Rate Baby A Baseline: 140 Variability:: Moderate Accelerations:: 15 x 15 Decelerations:: None NST Reactive:: Yes FHR Category:: Category I Assessment & Plan (1) Threatened labor: PLAN: no signs of labor today ok to dc to home and keep follow up appts discussed PTL precautions Charges/Coding Multi Select Codes Visit Charges Office Visit/Consults: 70810 OV L3 Est 20min Urinary/Genital Urinary/Genital CPT Codes: 72722-39 non-stress test Interp
== END 2025-02-05 14:06 | disposition home or self-care (01) ==
LOC: WPOUT 12:16 → WP 12:17
PROVIDERS: Visit Provider Advanced Practice Midwife
DX: O47.03 False labor before 37 completed weeks of gestation, third trimester (principal); Z3A.31 31 weeks gestation of pregnancy
CPT/HCPCS: 59025; 59050; 81001; 82731; 99221; G0378

== ENCOUNTER → 2025-02-16 | Outpatient (CLI) | payer OTHER, SELFPAY ==
[2025-02-16 12:21] LABS: Hematocrit 32.2 % (37-47); Hemoglobin 10.6 g/dL (12.0-15.0); Immature Granulocytes Count 0.180 X10^3/uL (0.0-0.0); Mean Corp Hgb Conc 32.9 g/dL (32-36); Mean Corpuscular Volume 86.6 fL (81-99); Mean Platelet Vol. 10.2 fl (6.2-12.0); NRBC Flagged by Analyzer 0 % (0-5); Platelet Count 367 K/mm3 (150-450); RBC Distribution Width CV 13.0 % (11.6-14.6); RBC Distribution Width SD 40.3 fl (35.1-43.9); Red Blood Count 3.72 M/mm3 (4.2-5.4); White Blood Count 11.2 K/mm3 (4.4-11.0)
[2025-02-16 13:00] LABS: AST(SGOT) 14 U/L (<=31); Alanine Aminotransfer ALT/SGPT 8 U/L (<=34); Albumin, Serum 3.7 g/dL (3.5-5.0); Alkaline Phosphatase 136 U/L (35-104); Anion Gap 13 (5-15); BUN 8 mg/dL (4-19); BUN/Creat Ratio 15.8 RATIO (10-20); Calcium,Total 9.0 mg/dL (7.6-11.0); Carbon Dioxide 19.5 mmol/L (21.0-32.0); Chloride 104 mmol/L (98-108); Globulin 3.1 g/dL (2.2-4.2); Glucose 79 mg/dL (70-99); Potassium 3.6 mmol/L (3.3-5.1)
[2025-02-16 13:12] LABS: Creatinine, Urine (random) 122.00 mg/dL (28.00-217.00); Protein, Urine (Random) 25.5 mg/dL (0.0-12.0); Protein:Creat Ratio 209 mg/g CRE (0-200)
== END | disposition home or self-care (01) ==
LOC: BWCLAB 08:53
PROVIDERS: Visit Provider Obstetrics & Gynecology
DX: O99.013 Anemia complicating pregnancy, third trimester (principal); R03.0 Elevated blood-pressure reading, without diagnosis of hypertension; Z3A.00 Weeks of gestation of pregnancy not specified
CPT/HCPCS: 36415; 80053; 82570; 84156; 85025

== ENCOUNTER → 2025-02-24 | Outpatient (CLI) | payer OTHER, SELFPAY ==
[2025-02-24 12:28] LABS: Hematocrit 32.5 % (37-47); Hemoglobin 11.2 g/dL (12.0-15.0); Immature Granulocytes Count 0.130 X10^3/uL (0.0-0.0); Mean Corp Hgb Conc 34.5 g/dL (32-36); Mean Corpuscular Volume 82.9 fL (81-99); Mean Platelet Vol. 10.3 fl (6.2-12.0); NRBC Flagged by Analyzer 0 % (0-5); Platelet Count 427 K/mm3 (150-450); RBC Distribution Width CV 13.1 % (11.6-14.6); RBC Distribution Width SD 39.4 fl (35.1-43.9); Red Blood Count 3.92 M/mm3 (4.2-5.4); White Blood Count 15.6 K/mm3 (4.4-11.0)
[2025-02-24 12:46] LABS: Creatinine, Urine (random) 22.60 mg/dL (28.00-217.00); Protein, Urine (Random) < 6.0 mg/dL (0.0-12.0); Protein:Creat Ratio 259 mg/g CRE (0-200)
[2025-02-24 12:48] LABS: AST(SGOT) 15 U/L (<=31); Alanine Aminotransfer ALT/SGPT 9 U/L (<=34); Albumin, Serum 3.8 g/dL (3.5-5.0); Alkaline Phosphatase 159 U/L (35-104); Anion Gap 11 (5-15); BUN 6 mg/dL (4-19); BUN/Creat Ratio 10.2 RATIO (10-20); Calcium,Total 9.2 mg/dL (7.6-11.0); Carbon Dioxide 22.5 mmol/L (21.0-32.0); Chloride 102 mmol/L (98-108); Globulin 3.6 g/dL (2.2-4.2); Glucose 80 mg/dL (70-99); Potassium 3.7 mmol/L (3.3-5.1)
== END | disposition home or self-care (01) ==
PROVIDERS: Visit Provider Advanced Practice Midwife
DX: O12.10 Gestational proteinuria, unspecified trimester (principal); O26.899 Other specified pregnancy related conditions, unspecified trimester; R51.9 Headache, unspecified; Z3A.00 Weeks of gestation of pregnancy not specified
CPT/HCPCS: 36415; 80053; 82570; 84156; 85025

== ENCOUNTER 2025-03-10 13:45 | Inpatient (IN) | payer OTHER, SELFPAY ==
[2025-03-10] VITALS (19 sets, daily range): BP systolic 127–141; BP diastolic 85–102; PULSE 73–93; RESP 16; TEMP 36.3–36.8; O2SAT 98–100; BMI 26.9
[2025-03-10 11:42] LABS: Hematocrit 30.7 % (37-47); Hemoglobin 10.2 g/dL (12.0-15.0); Mean Corp Hgb Conc 33.2 g/dL (32-36); Mean Corpuscular Volume 83.9 fL (81-99); Mean Platelet Vol. 10.1 fl (6.2-12.0); Platelet Count 420 K/mm3 (150-450); RBC Distribution Width CV 13.2 % (11.6-14.6); RBC Distribution Width SD 40.3 fl (35.1-43.9); Red Blood Count 3.66 M/mm3 (4.2-5.4); White Blood Count 13.7 K/mm3 (4.4-11.0)
[2025-03-10 12:51] LABS: AST(SGOT) 17 U/L (<=31); Alanine Aminotransfer ALT/SGPT 12 U/L (<=34); Estimated Creatinine Clearance 173.62 ml/min (50-250); Uric Acid 4.3 mg/dL (2.6-6.0)
[2025-03-10 13:03] LABS: Creatinine, Urine (random) 51.10 mg/dL (28.00-217.00); Protein, Urine (Random) 22.5 mg/dL (0.0-12.0); Protein:Creat Ratio 440 mg/g CRE (0-200)
--- NOTE | 2025-03-10 13:39 | HP.PCM.OB_ITS ---
HPI - General HPI Narrative LEONOR HAGER, is a 24 y/o at 36 weeks and 2 days who presents to labor and delivery with moderate headaches that started 2 days ago. In the office her blood pressure was noted to be 140s to 150s over 90s to 100 here in labor and delivery her blood pressures are 120s to 130s over 90s. Her -induced hypertension labs came back showing normal platelets and normal liver function however her protein creatinine urine test showed an almost doubling of the protein since 02/24/2025. Based on her severe features the decision was made to start an induction of labor. Group B strep was ordered today however we may need to repeat that and do a rapid test. While in the office her cervix was noted to be closed thick and high. Vertex presentation was appreciated on ultrasound today. We discussed the plan for Cytotec and patient agrees. Maternal Data Information ZACK Calculator Estimated Delivery Date Method Current WG Current Estimate 04/05/25 LMP (Certain) 36w 2d Other Estimates 04/03/25 Ultrasound #1 36w 4d PFSH PFSH Medical History History of migraine headaches Home Medications Medication Instructions Recorded Last Taken Type docosahexaenoic acid 200 mg 200 mg PO DAILY supplement 08/13/24 01/10/25 21:00 History capsule ( DHA) 200 mg famotidine 20 mg tablet (Pepcid) 20 mg PO BID #60 tabs 02/16/25 Unknown Rx Allergy/AdvReac Type Severity Reaction Status Date / Time latex Allergy Mild Rash Verified 03/10/25 11:31 Family History Father Asthma Mother Blood clot in abdominal vein Hypertension Factor V Leiden Grandmother Breast cancer Grandfather Hypertension Myocardial infarction, Onset Age: 42 and at age 61 Grandfather Myocardial infarction Social History adopted: No household members: spouse current occupational status: student 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 current occupational exposures/hazards: No pets and animals: No history of recent travel: Yes ( - June 2024) out of state: Yes out of country: No sexually active: Yes Smoking Status: Never smoker alcohol intake: never substance use type: does not use well-balanced diet: daily or most days caffeine: Yes Type: coffee eating out: 1-3 times/week during the past year weight has: remained stable what type of physical activity do you participate in: walking frequency: 3-4 times per week duration: 15-30 minutes/day melvina/christianity: Judaism seatbelt use: always do you feel safe at home: Yes additional social history: : 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 - [employer]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 History 1 Elective abortions Hx Para 0 Spontaneous abortions Hx # Term Pregnancies Ectopic pregnancies Hx # Pregnancies Multiple births # of living children Visit Details Expected Delivery Route/Plan Labor Preferences- CB/BF classes: [] labor support person: [] labor intervention preferences: [] pain management options preferred: [] cut cord/dad catch: [] : [] PP control planned: [] discussed possible routes of delivery and associated risks: [] special requests: [] Plans Covid status: [] Flu vaccine: [] Tdap vaccine: declines Rhogam: na LARC form signed:yes Problem list reviewed and updated with the most current plan of care details and appropriate orders placed. Relevant counseling for the gestational age provided. Continue routine care and follow up unless otherwise noted in visit notes/problem list details OB Flowsheet Initial Weight: Not Recorded Date - - - - - - - - - - - - - EGA Weight BP Urine Prot - - - - - - - - - - - - - Glucose FHR FuHt Pres Dilation - - - - - - - - - - - - - Effaced St Visit Note 08/27/24 - - - - - - - - - - - - - 8w 3d 130 lb 6 oz 126/75 - - - - - - - - - - - - - 161 - - - - - - - - - - - - - JV- CRL is consi stent with LMP. Desires NIPT. 09/27/24 - - - - - - - - - - - - - 12w 6d 134 lb 2 oz 119/86 Nega tive - - - - - - - - - - - - - Negative 168 - - - - - - - - - - - - - MH-No VB. Nausea improving. Br US to confirm FHT. PN labs and NIPT today 11/26/24 - - - - - - - - - - - - - 21w 3d 146 lb 3 oz 136/86 Nega tive - - - - - - - - - - - - - Negative 150 - - - - - - - - - - - - - SM- no vb lof go od fm no regular ctx nl anatomy 12/23/24 - - - - - - - - - - - - - 25w 2d 151 lb 8 oz 132/87 Nega tive - - - - - - - - - - - - - Negative 155 25 - - - - - - - - - - - - - KW- no vb/crampi ngVincenzo garcia. glucose next visit. 01/11/25 - - - - - - - - - - - - - 28w 0d 156 lb 2 oz 144/96 Trac e - - - - - - - - - - - - - Negative 152 27 - - - - - - - - - - - - - MH-No VB. Jose Mitchell. Headache, elevated BP and proteinuria-labs and sent to . 01/17/25 - - - - - - - - - - - - - 28w 6d 154 lb 4 oz 155/94 135/97 139/88 Negative - - - - - - - - - - - - - Negative 145 29 - - - - - - - - - - - - - SM- no vb lof go od fm no regular ctx checking bps at home and 130s over 80s, was admitted last week - at [facility] 01/27/25 - - - - - - - - - - - - - 30w 2d 157 lb 145/85 121/88 - - - - - - - - - - - - - 140 30 - - - - - - - - - - - - - SM- no vb lof go od fm n oregular ct some hip pain. repe tabps WNL. 02/16/25 - - - - - -- - - - - - - - 33w 1d 160 lb 6 oz 129/92 Nega tive - - - - - - - - - - - - - Negative 140 31 - - - - - - - - - - - - - JV- mild headach es on and off. diastolic elevated today. ordering PIH labs ad growth ultrasound JV- mild headaches on and of f. diastolic elevated today. ordering PIH labs. growth ultrasound already ordered with [facility] in early early february. 02/24/25 - - - - - - - - - - - - - 34w 2d 163 lb 2 oz 142/98 135/92 Trace - - - - - - - - - - - - - Negative 140 33 - - - - - - - - - - - - - KW- no vb/lof/ct x. good fm. not feeling well over the last couple days- N/V/D and feeling tired-Likely GI bug 03/10/25 - - - - - - - - - - - - - 36w 2d 167 lb 3 oz 148/96 - - - - - - - - - - - - - 122 36 Cephalic 0 - - - - - - - - - - - - - -3 JV- pt c omplains of on and off dull headache. pressure today elevated x 3. sending to L&D for PIH work up. ROS Constitutional Constitutional: Denies change in weight, fatigue, fever(s), headache(s), poor appetite or weakness Eyes Eyes: Denies blurry vision, change in vision, seeing flashes or spots in vision ENT HEENT: Reports headache(s); Denies dizziness, loss taste/smell or sore throat Cardiovascular Cardiovascular: Denies chest pain, dizziness, dyspnea, irregular heart rhythm, leg edema, palpitations, rapid heart rate or vomiting Respiratory/Chest Respiratory/Chest: Denies chest tightness, cough, dyspnea or breast pain Gastrointestinal Gastrointestinal: Denies abdominal pain, anorexia, constipation, cramping, diarrhea, hemorrhoids, vomiting or weight changes Genitourinary Genitourinary: Denies dysuria, flank pain, genital lesions, genital pain, urinary frequency or urinary urgency Musculoskeletal Musculoskeletal: Denies back pain, difficulty walking, joint pain, limited range of motion, muscle cramps or numbness Integumentary Integumentary: Denies lesions or unusual bruising Neurologic Neurologic: Denies abnormal movements, abnormal speech, dizziness, numbness, seizure-like activity or syncope Psychiatric Psychiatric: Denies anxiety, behavioral changes, change in appetite, change in libido, cognitive impairment, confusion, depression, difficulty concentrating, hallucinations or suicidal thoughts Endocrine Endocrinology: Denies excessive sweating, polydipsia or polyuria Hematologic/Lymphatic Hematologic/Lymphatic: Denies easy bleeding, easy bruising or lymphadenopathy Allergic/Immunologic Allergic/Immunologic: Denies itchy eyes, lip swelling, seasonal rhinorrhea, rhinitis, throat swelling, tongue swelling, eczemia, wheezing or asthma Vital Signs Vital Signs Vital Signs: 03/10/25 11:18 03/10/25 11:18 03/10/25 11:18 Temperature 98.2 F Temperature Source Temporal Pulse Rate Respiratory Rate 16 Blood Pressure BP Systolic BP Diastolic Pulse Ox 03/10/25 11:19 03/10/25 11:19 03/10/25 11:24 Temperature Temperature Source Pulse Rate 88 Respiratory Rate Blood Pressure 136/97 H BP Systolic 136 BP Diastolic 97 Pulse Ox 98 03/10/25 11:24 03/10/25 11:24 03/10/25 11:24 Temperature Temperature Source Pulse Rate 88 90 Respiratory Rate Blood Pressure BP Systolic BP Diastolic Pulse Ox 98 03/10/25 11:34 03/10/25 11:34 03/10/25 11:49 Temperature Temperature Source Pulse Rate 85 Respiratory Rate Blood Pressure 132/96 H 130/92 H BP Systolic 132 130 BP Diastolic 96 92 Pulse Ox 03/10/25 11:49 03/10/25 12:04 03/10/25 12:04 Temperature Temperature Source Pulse Rate 93 87 Respiratory Rate Blood Pressure 128/91 H BP Systolic 128 BP Diastolic 91 Pulse Ox 03/10/25 12:20 03/10/25 12:20 03/10/25 12:35 Temperature Temperature Source Pulse Rate 82 Respiratory Rate Blood Pressure 127/90 H 131/88 H BP Systolic 127 131 BP Diastolic 90 88 Pulse Ox 03/10/25 12:35 03/10/25 12:50 03/10/25 12:50 Temperature Temperature Source Pulse Rate 81 83 Respiratory Rate Blood Pressure 129/86 H BP Systolic 129 BP Diastolic 86 Pulse Ox 03/10/25 13:04 03/10/25 13:04 03/10/25 13:21 Temperature Temperature Source Pulse Rate 81 Respiratory Rate Blood Pressure 129/86 H 129/87 H BP Systolic 129 129 BP Diastolic 86 87 Pulse Ox 03/10/25 13:21 03/10/25 13:34 03/10/25 13:34 Temperature Temperature Source Pulse Rate 77 85 Respiratory Rate Blood Pressure 129/87 H BP Systolic 129 BP Diastolic 87 Pulse Ox Weight Weight: 167 lb 4 oz Body Mass Index (BMI) 26.9 Physical Exam Const alert, oriented x3, no apparent distress and healthy appearing General Appearance: cooperative; Negative for anxious HEENT normocephalic Face and Sinus: normal facial exam Eyes EOMs intact bilaterally and no scleral icterus General Eye: normal appearance of both eyes Neck full ROM and supple Lymph Lymphatic: no lymphadenopathy noted Resp normal respiratory effort Effort and Inspection: able to speak in complete sentences Cardio regular rate GI soft to palpation and non-tender Inspection: gravid Palpation: soft; Negative for tender Back/Spine no CVA tenderness Extremity normal to inspection, full ROM and no clubbing, cyanosis or edema General Extremity: Negative for calf tenderness or edema Skin Lesions: no lesions Rashes: no rashes Psych mental status grossly normal Labs Labs Labs: Blood Type B POSITIVE Antibody Screen NEGATIVE Hct, (37-47) 30.7 % L Hgb, (12.0-15.0) 10.2 g/dL L Obstetrics Ultrasound Syphilis Total Ab, (Nonreactive) Nonreactive Rubella IgG Antibody, (Nonreactive) REAC Hep Bs Antigen, (Nonreactive) Nonreactive Hepatitis C Antibody, (Nonreactive) Nonreactive Chlamydia DNA (ENRIQUE), (Negative) Negative N.gonorrhoeae DNA (ENRIQUE), (Negative) Negative HIV 1&2 Antibody, (Nonreactive) Nonreactive Glucose 1 Hr 50 gm, (70-140) 87 mg/dL Assessment & Plan (1) Severe preeclampsia: (2) Hypertension affecting : (3) Anemia affecting in third trimester: COMMENT: iron ordered, cbc next visit (4) Supervision of high-risk : QUALIFIERS: Trimester: first trimester Qualified Code(s): O09.91 - Supervision of high risk , unspecified, first trimester COMMENT: PRR G1, ZACK 04/05/25, boy Onofre : Emeterio (5) : QUALIFIERS: Weeks of gestation: 36 weeks Qualified Code(s): Z3A.36 - 36 weeks gestation of COMMENT: NIPT-low risk declined afp and carrier. nl anatomy. (6) Fibromyalgia: PLAN: Plan Patient presents IOL, plan management for with cytotec then hopefully a ortiz balloon. Pain management: plans epidural. GBS pending . Management of any complications: none I have reviewed the [facility] and made any clinically relevant updates.
[2025-03-10] MEDS: 0.9% Saline Lock 10 ML Syringe IV (15:49)
[2025-03-10 15:51] LABS: Syphilis Antibodies Nonreactive (Nonreactive)
--- OUTSIDE RECORDS SUMMARY | 2025-03-10 19:01 | XMS RPT_ITS | CCD ---
Author Organization [facility] Care Team Providers Care Employment Coordinator Name Role Phone Unavailable Primary Care Provider UnavailEDIS Magana Attending Unavailable EDIS BROOKS Primary Care Unavailable EDIS BROOKS Admitting Unavailable Mally Maldonado CNM Attending Provider 1(330) Dr. Yudith Harper DO Attending Provider Dr. Yudith Harper DO Referring Provider Butch Pablo Attending Provider [phone] Dr. Catie Krishnan MD Attending Provider Care Physician, No Primary Primary Care Provider Unavailable Dr. Catie Krishnan MD Referring Provider Dr. Catie Krishnan MD Other Provider 1(330 ) Mally Maldonado CNM Attending Provider 1(330) Care Physician, No Primary Referring Provider Un available Butch Pablo Referring Provider [phone] Mally Maldonado CNM Other Provider 1(330) Dr. Yudiht Harper DO Attending Provider Unavailable Primary Care Provider UnavailJENNIFER De Luna Consulting Unavailable MONA HUGHES Admitting Unavailable MONA HUGHES Attending Unavailable Butch Pbalo Attending Physician [phone] Dr. Catie Krishnan MD Attending Physician Care Physician, No Primary Primary Care Physicia n Unavailable Dr. Catie Krishnan MD Nurse Practitioner [phone] Mally Maldonado CNM Attending Physician [phone] Mally Maldonado CNM Nurse Practitioner 1(330) Dr. Yudith Harper DO Attending Physician Mally Malodnado CNM Referring Provider 1(330) Ezekiel SUPERVISOR PRE WAVE-C, Butch Attending Physician [phone])2 Ezekiel SUPERVISOR PRE WAVE-C, Butch Attending Physician [phone] YUDITH MARTE Attending Unavailable NO PRIMARY CARE, Primary Care Unavailable BUTCH FALCON S Referring Unavailable YUDITH CONNOR Referring Unavailab VANESSA Robles Attending Unavailable NO PRIMARY CARE, Primary Care Unavailable NO PRIMARY CARE, Primary Care Unavailable MONA HUGHES Attending Unavailable Ariella BLAND, Dr. Haddad Attending Physician Care Physician, No Primary Primary Care Physicia n Unavailable Ariella BLAND, Dr. Haddad Referring Provider Ariella BLAND, Dr. Haddad Nurse Practitioner [phone] Joel BAILON, Mally Attending Physician [phone] Care Physician, No Primary Referring Provider Un available Ezekiel SUPERVISOR PRE WAVE-C, Butch Attending Physician [phone])2 Mcrae Helena SUPERVISOR PRE WAVE-C, Butch Referring Provider [phone] Mally Maldonado CNM Nurse Practitioner 1(330) Sadaf Montero DO, Dr. Zurita Attending Physician Mally Maldonado CNM Referring Provider 1(330) Care Physician, No Primary Referring Unava ilable Care Physician, No Primary Primary Care Unava ilable Mally Maldonado Attending Unavailable Ezekiel SUPERVISOR PRE WAVE, Butch Referring Unavailable Yudith Harper Attending Unavailabl e Care Physician, No Primary Primary Care Unava ilable Mally Maldonado Consulting Unavailable Care Physician, No Primary Primary Care Unava ilable Yudith Harper Attending Unavailabl e Mally Maldonado Consulting Unavailable Mally Maldonado Consulting Unavailable Mally Maldonado Referring Unavailable aMlly Maldonado Attending Unavailable Care Physician, No Primary Primary Care Unava ilable Mcrae Helena SUPERVISOR PRE WAVE, Butch Referring Unavailable Care Physician, No Primary Primary Care Unava ilable Mally Maldonado Attending Unavailable Care Physician, No Primary Primary Care Unava ilable Mally Maldonado Attending Unavailable Mally Maldonado Referring Unavailable Mally Maldonado Attending Unavailable Care Physician, No Primary Primary Care Unava ilable Sadaf Montero, Yudith Attending Unavailabl e Care Physician, No Primary Referring Unava ilable Catie Krishnan Attending Unavailable Care Physician, No Primary Primary Care Unava ilable Vande Veljoy, Yudith Attending Unavailabl e Care Physician, No Primary Referring Unava ilable Care Physician, No Primary Primary Care Unava ilable Care Physician, No Primary Referring Unava ilable Catie Krishnan Attending Unavailable Care Physician, No Primary Primary Care Unava ilable Care Physician, No Primary Referring Unava ilable Marcanthsharon, Catie Attending Unavailable Care Physician, No Primary Primary Care Unava ilable Care Physician, No Primary Referring Unava ilable Mcrae Helena SUPERVISOR PRE WAVE, Butch Attending Unavailable Care Physician, No Primary Primary Care Unava ilable Care Physician, No Primary Primary Care Unava ilable Care Physician, No Primary Referring Unava ilable Fane Veljoy, Yudith Attending Unavailabl e Care Physician, No Primary Primary Care Unava ilable Care Physician, No Primary Referring Unava ilable Mally Maldonado Attending Unavailable Care Physician, No Primary Primary Care Unava ilable Mally Maldonado Admitting Unavailable Mally Maldonado Referring Unavailable Mally Maldonado Attending Unavailable Care Physician, No Primary Primary Care Unava ilable Mally Maldonado Attending Unavailable Care Physician, No Primary Primary Care Unava ilable Sadaf Montero, Yudith Attending Unavailabl e MarcanthonyCatie Attending Unavailable Ezekiel SUPERVISOR PRE WAVE, Butch Attending Unavailable Mcrae Helena SUPERVISOR PRE WAVE, Butch Attending Unavailable Vande Veljoy, Yudith Referring Unavailabl e Vande Veljoy, Yudith Attending Unavailabl e Mally Maldonado Attending Unavailable Mally Maldonado Attending Unavailable MarcanthonyCatie Consulting Unavailable MarcanthonyCatie Referring Unavailable MarcanthonyCatie Attending Unavailable Care Physician, No Primary Primary Care Unava ilable Marcanthony, Catie Referring Unavailable MarcanthonyCatie Attending Unavailable Care Physician, No Primary Primary Care Unava ilable Allergies Allergy Classification Reported Allergen(s) Allergy Type Date of Onset Reaction(s) Facility (14 sources) Latex; Translations: [LATEX] Allergy to substance 5 [facility] (2 sources) Latex Propensity to adverse reactions 5 [facility] (1 source) Latex Drug allergy (disorder) [facility] Repository Medications Current Medications Medication Drug Class(es) Dates Sig (Normalized) Sig (Original) amoxicillin 875 mg / clavulanate 125 mg oral tablet (1 source) Penicillin-class Antibacterial Start: 03-08-2024 End: 03-13-2024 take 1 tablet by mouth twice daily amoxicillin-clav ulanate potassium (AUGMENTIN) 875-125 mg per tablet Indications: Acute non-recurrent sinusitis, unspecified location Take 1 tablet by mouth two times a day for 5 days. 10 tablet 03/08/2024 03/13/2024 Active docosahexaenoic acid 200 mg oral capsule (13 sources) Start: 08-13-2024 take 1 capsule by mouth once daily famotidine 20 mg oral tablet (2 sources) Histamine-2 Receptor Antagonist Start: 02-16-2025 take 1 tablet by mouth twice daily Start: 02-16-2025 take 1 tablet by mouth twice d aily MV-Min-Fe Fum-FA-DH A ( 1 PO) (2 sources) MV-Min- Fe Fum-FA-DHA ( 1 PO) Take by mouth. Active Completed/Discontinued Medications Medication Drug Class(es) Dates Sig (Normalized) Sig (Original) acetaminophen 325 mg oral tablet (4 sources) Start: 01-11-2025 End: 01-13-2025 take 1 tablet by mouth every four hours as needed for pain and pain 650 mg, Oral, Every 4 hours PRN, mild pain (1-3), moderate pain (4-6), Fever GREATER than 100.5 F (38 C), Starting on Fri01/12/25 at 2152, Maximum dose of acetaminophen is 4000 mg from all sources in 24 hours. acetaminophen 500 mg / caffeine 65 mg oral tablet (2 sources) Central Nervous System Stimulant, Methylxanthine Start: 01-11-2025 End: 01-11-2025 take 2 tablets by mouth once 2 tablet, Oral, Once, On Fri01/11/25 at 2145, For 1 dose Start: 01-11-2025 End: 01-11-2025 take 2 tablets by mouth once 2 tablet, Oral, Once, On Fri01/11/25 at 2145, For 1 dose betamethasone 3 mg/ml / betamethasone acetate 3 mg/ml injectable suspension (2 sources) Corticosteroid Start: 01-12-2025 End: 01-12-2025 inject 12 mg by intramuscular injection once 12 mg, IntraMUSCular, Once, On Fri01/12/25 at 1330, For 1 dose brompheniramine maleate 0.4 mg/ml / dextromethorphan hydrobromide 2 mg/ml / pseudoephedrine hydrochloride 6 mg/ml oral solution (3 sources) alpha-Adrenergic Agonist, Uncompetitive S-altjsh-[place]-aspart[place] te Receptor Antagonist, Sigma-1 Agonist Start: 01-14-2024 End: 03-08-2024 take 5 mL by mouth four times daily as needed Brompheniramine-Ps eudoeph-DM (BROMFED DM) 2-30-10 mg/5 mL syrup Indications: Viral URI with cough Take 5 mL by mouth four times a day as needed. 118 mL 01/14/2024 03/08/2024 Discontinued 10 ml calcium gluconate 100 mg/ml injection (2 sources) Start: 01-11-2025 End: 01-13-2025 1 g, IntraVENous, PRN, For suspected magnesium toxicity or for respiratory rate less than 6 per minute., Starting on Fri01/11/25 at 2113, Administer slow IV push over 5 minutes. 500 ml magnesium sulfate 40 mg/ml injection (2 sources) Start: 01-11-2025 End: 01-12-2025 1,000 mg/hr (25 mL/hr), IntraVENous, Administer over 12 Hours, Continuous, Starting on Fri01/11/25 at 2145, For 4 hours, Pre-Infusion: Assess baseline vital signs (blood pressure, pulse, pulse oximetry, respirations, and temperature), respiratory status, intake and output, neurologic status (deep tendon reflexes, presence or absence of clonus, level of consciousness (LOC), presence of headaches/visual disturbances, presence/absence of epigastric pain, and if applicable Heart Rate/Contractions (continuous monitoring). Loading Dose and Maintenance Infusion: - Stay with the patient during the loading dose and the first hour of the infusion to monitor for adverse reactions. - Monitor the patient's vital signs (including pulse oximetry) and assess respiratory status, deep tendon reflexes, and level of consciousness every 15 minutes for the first hour after the start of the loading dose, then every 30 minutes for 1 hour, then every 2 hours thereafter unless more frequent assessments are warranted based on the patient's condition. Notify care provider immediately of absent deep tendon reflexes, a urine output of less than 30 mL/hour, respirations of less than 10 breaths/minute, or an oxygen saturation level of less than 95% Grams to milligrams conversion table: 1 gram = 1000 mg 2 grams = 2000 mg 4 grams = 4000 mg 6 grams = 6000 mg 20 grams = 20,000 mg, Indications: Neuroprotection ondansetron ODT (Zofran-ODT) disintegrating tablet 4 mg (2 sources) Start: 01-11-2025 End: 01-13-2025 take 1 tablet by mouth every eight hours as needed for nausea and vomiting ondansetron ODT (Zofran-ODT) disintegrating tablet 4 mg vitamin tablet (2 sources) Start: 01-12-2025 End: 01-13-2025 take 1 tablet by mouth once daily 1 tablet, Oral, Daily, First dose on Fri01/12/25 at 0900 5 ml sodium chloride 9 mg/ml injection (6 sources) Start: 01-11-2025 End: 01-13-2025 10 mL, IntraVENous, Every 12 hours scheduled (2 times per day), First dose on Fri01/11/25 at 2145 Start: 01-11-2025 End: 01-13-2025 Start: 01-11-2025 End: 01-13-2025 Problems Active Problems Problem Classification Problem Date Documented Da te Episodic/Chronic Abdominal pain (2 sources) Epigastric pain; Translations: [Epigastric pain] Onset: 01-27-2025 Episodic Cardiac dysrhythmias (20 sources) Tachycardia; Translations: [Tachycardia, unspecified] 08-13-2024 Episodic Coagulation and hemorrhagic disorders (18 sources) Factor V Leiden mutation; Translations: [Activated protein C resistance] 08-27-2024 Chronic Comment on above: this is a family his tory. Dad had PA at 42 and factor 5 was diagnosed. Early or threatened labor (16 sources) False labor before 37 completed weeks of gestation; Translations: [False labor before 37 completed weeks of gestation, unspecified trimester] Onset: 01-11-2025 01-11-2025 Episodic Genitourinary symptoms and ill-defined conditions (2 sources) Proteinuria, unspecified; Translations: [Proteinuria, unspecified] Onset: 01-11-2025 Episodic Headache; including migraine (20 sources) Generalized headache; Translations: [Generalized headache] 08-06-2024 Episodic Headache; including migraine (2 sources) Headache; including migraine; Translations: [Headache, unspecified] Onset: 02-24-2025 Hypertension complicating ; childbirth and the puerperium (20 sources) Hypertensive disorder; Translations: [Unspecified maternal hypertension, unspecified trimester] Onset: 01-27-2025 01-11-2025 Chronic Comment on above: to WP, labs labs. to WP normal labs. normal BPS on unit, reactive NST Other circulatory disease (20 sources) Elevated blood-pressure reading without diagnosis of hypertension; Translations: [Elevated blood-pressure reading, without diagnosis of hypertension] 08-13-2024 Episodic Comment on above: ASA ~10-12wks; To ca ll w/persistent BP 140/90 Other circulatory disease (1 source) Elevated blood-pressure reading, without diagnosis of hypertension; Translations: [Elevated blood-pressure reading, without diagnosis of hypertension] Onset: 02-16-2025 Episodic Other complications of (9 sources) Anemia in mother complicating , childbirth AND/OR puerperium; Translations: [Anemia complicating , third trimester] 02-02-2025 Chronic Comment on above: iron ordered, cbc ne xt visit Other complications of (1 source) Anemia complicating , third trimester; Translations: [Anemia complicating , third trimester] Onset: 02-24-2025 Chronic Other complications of (20 sources) High risk ; Translations: [Supervision of high risk , unspecified, unspecified trimester] 08-13-2024 Episodic Comment on above: G1, ZACK 04/05/25, Hus band: Emeterio PRR G1, ZACK 04/05/25, : Emeterio PRR G1, ZACK 04/05/25, boy Onofre : Emeterio Other complications of (20 sources) Abdominal pain in ; Translations: [Other specified related conditions, unspecified trimester] 01-11-2025 Episodic Other complications of (20 sources) Headache; Translations: [Other specified related conditions, unspecified trimester] 01-11-2025 Episodic Comment on above: no vision changes. T o WP, labs Other complications of (2 sources) Other specified related conditions, unspecified trimester; Translations: [Other specified related conditions, unspecified trimester] Onset: 02-24-2025 Episodic Other complications of (2 sources) Gestational proteinuria, unspecified trimester; Translations: [Gestational proteinuria, unspecified trimester] Onset: 02-24-2025 Episodic Other complications of (2 sources) Supervision of high risk , unspecified, first trimester; Translations: [Supervision of high risk , unspecified, first trimester] Onset: 02-18-2025 Episodic Other complications of (2 sources) Other specified related conditions, second trimester; Translations: [Other specified related conditions, second trimester] Onset: 01-27-2025 Episodic Other connective tissue disease (20 sources) Fibromyalgia; Translations: [Fibromyalgia] 08-13-2024 Episodic Other connective tissue disease (2 sources) Fibromyalgia; Translations: [Fibromyalgia] Onset: 02-18-2025 Episodic Other and delivery including normal (20 sources) ; Translations: [Encounter for supervision of normal , unspecified, unspecified trimester] Onset: 01-14-2025 09-27-2024 Episodic Comment on above: Discussed genetic/ca rrier testing - undecided declined carrier and ntd screen. NIPT-low risk, gender male. nl anatomy. NIPT-low risk declin ed afp and carrier. nl anatomy. Other screening for suspected conditions (not mental disorders or infectious disease) (1 source) Encounter for screening for diabetes mellitus; Translations: [Encounter for screening for diabetes mellitus] Onset: 01-25-2025 Episodic Other upper respiratory infections (4 sources) Viral upper respiratory tract infection; Translations: [Acute upper respiratory infection, unspecified] 01-14-2024 Episodic Residual codes; unclassified (1 source) 34 weeks gestation of ; Translations: [34 weeks gestation of ] Onset: 02-24-2025 Episodic Residual codes; unclassified (1 source) 33 weeks gestation of ; Translations: [33 weeks gestation of ] Onset: 02-16-2025 Episodic Residual codes; unclassified (1 source) 30 weeks gestation of ; Translations: [30 weeks gestation of ] Onset: 01-27-2025 Episodic Residual codes; unclassified (1 source) 28 weeks gestation of ; Translations: [28 weeks gestation of ] Onset: 02-18-2025 Episodic Residual codes; unclassified (2 sources) 25 weeks gestation of ; Translations: [25 weeks gestation of ] Onset: 12-23-2024 Episodic Unclassified (1 source) Other specified diseases and conditions complicating ; Translations: [Other specified diseases and conditions complicating ] Onset: 02-18-2025 Past or Other Problems Problem Classification Problem Date Documented Da te Episodic/Chronic Other complications of (1 source) Supervision of high risk , unspecified, unspecified trimester; Translations: [Supervision of high risk , unspecified, unspecified trimester] Onset: 08-31-2024 Episodic Results Test Name Value Interpretation Reference Range Facility Absolute lymphocyte countOrd ered By: Mally Maldonado on 02-24-2025 Lymphocytes Auto (Unsp spec) [#/Vol] 1.88 10*3/uL 0.83-4.51 [facility] Absolute neutrophil countOrd ered By: Mally Maldonado on 02-24-2025 Neutrophils (Bld) [#/Vol] 12.6 10*3/uL High 2.0-7.7 [facility] Anion gap in Serum or Plasma Ordered By: Mally Maldonado on 02-24-2025 Anion gap [Moles/Vol] 11 mmol/L 5-15 [facility] Automated lymphocyte count a s percentage of total leukocytesOrdered By: Mally Maldonado on 02-24-2025 Lymphocytes/100 WBC Auto (Unsp spec) 12.1 % Low 19-41 [facility] BUN/creatinine ratioOrdered By: Mally Maldonado on 02-24-2025 Urea nitrogen/Creatinine [Mass ratio] 10.2 mg/mg 10- [facility] Basophil percentageOrdered B y: Mally Maldonado on 02-24-2025 Basophils/100 WBC (Bld) 0.2 % 0-1 [facility] Bilirubin, totalOrdered By: Mally Maldonado on 02-24-2025 Bilirubin [Mass/Vol] 0.71 mg/dL 0.00-1.30 [facility] CBC W/Diff, Automatedon 01-28 Absolute Lymph 1.88 X10 3/uL Normal 0.83-4.51 [facility] Comment on above: Performed By: #### L 500.4050, L501.0900 #### [facility] [address] [place], [address] Absolute Neut 12.6 X10 3/uL High 2.0-7.7 [facility] Comment on above: Performed By: #### L 500.4050, L501.0900 #### [facility] [address] [place], [address] Basophils/100 WBC (Bld) 0.2 % Normal 0-1 [facility] Comment on above: Performed By: #### L 500.4050, L501.0900 #### [facility] [address] [place], [address] Eosinophils/100 WBC (Bld) 0.4 % Normal 0-5 [facility] Comment on above: Performed By: #### L [id number], [id number] #### [facility] [address] [place], [address] Erythrocyte distribution width (RBC) [Ratio] 13.1 % Normal 11.6-14.6 [facility] Comment on above: Performed By: #### L 500.4050, L501.0900 #### [facility] [address] [place], [address] Hematocrit (Bld) [Volume fraction] 32.5 % Low 37-47 [facility] Comment on above: Performed By: #### L 500.4050, [id number] #### [facility] [address] [place], [address] Hemoglobin (Bld) [Mass/Vol] 11.2 g/dL Low 12.0-15.0 [facility] Comment on above: Performed By: #### L 500.4050, L501.0900 #### [facility] [address] [place], [address] IG% 0.800 Normal 0.0-0.9 [facility] Comment on above: Result Comment: IG% - Immature Granulocytes (promyelocytes, myelocytes and metamyelocytes) > 1% indicates that a LEFT SHIFT is Present. Performed By: #### L 500.4050, L501.0900 #### [facility] [address] [place], [address] Lymphocytes/100 WBC (Bld) 12.1 % Low 19-41 [facility] Comment on above: Performed By: #### L 500.4050, [id number] #### [facility] [address] [place], [address] MCH (RBC) [Entitic mass] 28.6 pg Normal 27.0-32.0 [facility] Comment on above: Performed By: #### L [id number], [id number] #### [facility] [address] [place], [address] MCHC (RBC) [Mass/Vol] 34.5 g/dL Normal 32-36 [facility] Comment on above: Performed By: #### L [id number], [id number] #### [facility] [address] [place], [address] MCV (RBC) [Entitic vol] 82.9 fL Normal 81-99 [facility] Comment on above: Performed By: #### L 500.4050, [id number] #### [facility] [address] [place], [address] Monocytes/100 WBC (Bld) 6.0 % Normal 0-10 [facility] Comment on above: Performed By: #### L 500.4050, [id number] #### [facility] [address] [place], [address] Neutrophils/100 WBC (Bld) 80.5 % High 47-70 [facility] Comment on above: Performed By: #### L 500.4050, [id number] #### [facility] [address] [place], [address] Nucleated RBC (Bld) [#/Vol] 0 10*3/uL Normal 0-5 [facility] Comment on above: Performed By: #### L 500.4050, [id number] #### [facility] [address] [place], [address] Platelet mean volume (Bld) [Entitic vol] 10.3 fL Normal 6.2-12.0 [facility] Comment on above: Performed By: #### L [id number], [id number] #### [facility] [address] [place], [address] Platelets (Bld) [#/Vol] 427 10*3/uL Normal 150-450 [facility] Comment on above: Performed By: #### L 500.4050, [id number] #### [facility] [address] [place], [address] RBC (Bld) [#/Vol] 3.92 10*6/uL Low 4.2-5.4 [facility] Comment on above: Performed By: #### L 500.4050, [id number] #### [facility] [address] [place], [address] RDW SD 39.4 fl Normal 35.1-43.9 [facility] Comment on above: Performed By: #### L 500.4050, [id number] #### [facility] [address] [place], [address] WBC (Bld) [#/Vol] 15.6 10*3/uL High 4.4-11.0 [facility] Comment on above: Performed By: #### L 500.4050, [id number] #### [facility] [address] [place], [address] Carbon dioxide, total [Moles /volume] in Central venous bloodOrdered By: Mally Maldonado on 02-24-2025 CO2 [Moles/Vol] 22.5 mmol/L 21.0-32.0 [facility] Chloride assayOrdered By: Lei Maldonado on 02-24-2025 Chloride [Moles/Vol] 102 mmol/L 98-108 [facility] Comprehensive Metabolic Prof ilon 02-24-2025 Albumin [Mass/Vol] 3.8 g/dL Normal 3.5-5.0 [facility] Comment on above: Performed By: #### L 500.4050, [id number] #### [facility] [address] [place], [address] Albumin/Globulin [Mass ratio] 1.0 {ratio} Normal 0.9-2.4 [facility] Comment on above: Performed By: #### L 500.4050, [id number] #### [facility] [address] [place], [address] ALK PHOS 159 U/L High 35-104 [facility] Comment on above: Performed By: #### L 500.4050, [id number] #### [facility] [address] [place], [address] ALT [Catalytic activity/Vol] 9 U/L Normal <=34 [facility] Comment on above: Performed By: #### L 500.4050, [id number] #### [facility] [address] [place], [address] AST [Catalytic activity/Vol] 15 U/L Normal <=31 [facility] Comment on above: Performed By: #### L 500.4050, [id number] #### [facility] [address] [place], [address] Bilirubin [Mass/Vol] 0.71 mg/dL Normal 0.00-1.30 [facility] Comment on above: Performed By: #### L 500.4050, [id number] #### [facility] [address] [place], [address] BUN/CRE 10.2 RATIO Normal 10-20 [facility] Comment on above: Performed By: #### L 500.4050, [id number] #### [facility] [address] [place], [address] Calcium [Mass/Vol] 9.2 mg/dL Normal 7.6-11.0 [facility] Comment on above: Performed By: #### L 500.4050, L501.0900 #### [facility] [address] [place], [address] Chloride [Moles/Vol] 102 mmol/L Normal 98-108 [facility] Comment on above: Performed By: #### L 500.4050, L501.0900 #### [facility] [address] [place], [address] CO2 [Moles/Vol] 22.5 mmol/L Normal 21.0-32.0 [facility] Comment on above: Performed By: #### L 500.4050, L501.0900 #### [facility] [address] [place], [address] Creatinine [Mass/Vol] 0.58 mg/dL Low 0.70-1.20 [facility] Comment on above: Performed By: #### L 500.4050, L501.0900 #### [facility] [address] [place], [address] GAP 11 Normal 5-15 [facility] Comment on above: Performed By: #### L 500.4050, L501.0900 #### [facility] [address] [place], [address] GFR/1.73 sq M.predicted among non-blacks MDRD (S/P/Bld) [Vol rate/Area] 130 mL/min/{1.73_m2} Normal >60 [facility] Comment on above: Result Comment: mL/m in/1.73m2 CKD-EPI Creatinine Equation (2020) Performed By: #### L 500.4050, L501.0900 #### [facility] [address] [place], [address] Globulin (S) [Mass/Vol] 3.6 g/dL Normal 2.2-4.2 [facility] Comment on above: Performed By: #### L 500.4050, L501.0900 #### [facility] [address] [place], [address] Glucose [Mass/Vol] 80 mg/dL Normal 70-99 [facility] Comment on above: Performed By: #### L 500.4050, L501.0900 #### [facility] [address] [place], [address] Potassium [Moles/Vol] 3.7 mmol/L Normal 3.3-5.1 [facility] Comment on above: Performed By: #### L 500.4050, L501.0900 #### [facility] [address] [place], [address] Sodium [Moles/Vol] 135 mmol/L Normal 133-145 [facility] Comment on above: Performed By: #### L 500.4050, L501.0900 #### [facility] [address] [place], [address] T PROT 7.4 g/dL Normal 5.9-8.4 [facility] Comment on above: Performed By: #### L 500.4050, L501.0900 #### [facility] [address] [place], [place], [address] Urea nitrogen [Mass/Vol] 6 mg/dL Normal 4-19 [facility] Comment on above: Performed By: #### L 500.4050, L501.0900 #### [facility] [address] [place], [address] Eosinophil percentageOrdered By: Mally Maldonado on 02-24-2025 Eosinophils/100 WBC (Bld) 0.4 % 0-5 [facility] Erythrocyte distribution wid th ratioOrdered By: Mally Maldonado on 02-24-2025 Erythrocyte distribution width (RBC) [Ratio] 13.1 % 11.6-14.6 [facility] Erythrocyte distribution wid th standard deviationOrdered By: Mally Maldonado on 02-24-2025 Erythrocyte distribution width (RBC) [Ratio] 39.4 fl 35.1-43.9 [facility] Glomerular filtration rate ( GFR) estimation/1.73 sq m using serum, plasma, or whole bOrdered By: Mally Maldonado on 02-24-2025 GFR/1.73 sq M.predicted among non-blacks MDRD (S/P/Bld) [Vol rate/Area] 130 mL/min/{1.73_m2} >60 [facility] Comment on above: mL/min/1.73m2 CKD-EP I Creatinine Equation (2020) Hematocrit Auto (Bld) [Volum e fraction]Ordered By: Mally Maldonado on 02-24-2025 Hematocrit (Bld) [Volume fraction] 32.5 % Low 37-47 [facility] Hemoglobin measurementOrdere d By: Mally Maldonado on 02-24-2025 Hemoglobin (Bld) [Mass/Vol] 11.2 g/dL Low 12.0-15.0 [facility] Immature granulocytes/100 WB C Auto (Bld)Ordered By: Mally Maldonado on 02-24-2025 Immature granulocytes/100 WBC (Bld) 0.800 % 0.0-0.9 [facility] Comment on above: IG% - Immature Granu locytes (promyelocytes, myelocytes and metamyelocytes) > 1% indicates that a LEFT SHIFT is Present. Laboratory - Chemistry and C hemistry - challengeOrdered By: Mally Maldonado on 02-24-2025 AST [Catalytic activity/Vol] 15 U/L <32 [facility] Glucose Ql (U) Negative [facility] - UrinalysisOrder ed By: Mally Maldonado on 02-24-2025 Protein Ql (U) Trace [facility] MCV (mean corpuscular volume ) determinationOrdered By: Mally Maldonado on 02-24-2025 MCV (RBC) [Entitic vol] 82.9 fL 81-99 [facility] Mean corpuscular hemoglobin (MCH) determinationOrdered By: Mally Maldonado on 02-24-2025 MCH (RBC) [Entitic mass] 28.6 pg 27.0-32.0 [facility] Mean corpuscular hemoglobin concentration (MCHC) determinationOrdered By: Mally Maldonado on 02-24-2025 MCHC (RBC) [Mass/Vol] 34.5 g/dL 32-36 [facility] Mean platelet volume determi nationOrdered By: Mally Maldonado on 02-24-2025 Platelet mean volume (Bld) [Entitic vol] 10.3 fL 6.2-12.0 [facility] Monocyte percentageOrdered B y: Mally Maldonado on 02-24-2025 Monocytes/100 WBC (Bld) 6.0 % 0-10 [facility] Neutrophil percentageOrdered By: Mally Maldonado on 02-24-2025 Neutrophils/100 WBC (Bld) 80.5 % High 47-70 [facility] Nucleated red blood cell per centageOrdered By: Mally Maldonado on 02-24-2025 Nucleated RBC/100 WBC (Bld) [Ratio] 0 % 0-5 [facility] Sample Taker Operator Office Visit Reporton 02-24-2025 Sample Taker Operator Office Visit Report [facility] [address], [address] [place] [address] OFFICE VISIT Date of Service: 02/24/25 MR#: [id number] Acct: [id number] Name: ALLEYLEONOR BRENDA Rep #: [id number] : 2000 Provider: UVALDO Medeiros ams Age/Sex: 24/F [place] [facility] [place]: [place]igned Intake Vital Signs 01/11/25 09:24 02/16/25 08:42 02/24/25 10:58 02/24/25 11:05 Height 5 ft 6 in 5 ft 6 in 5 ft 6 in Weight: 163 lb 2 oz BMI 26.3 BP 142/98 H 135/92 H Intake Visit Reasons: 34wk2d ob Chief Complaint: 34wk OB Bolt Labeler Required: No Is patient in pain?: No Allergies latex Allergy (Mild, Verified 02/24/25 10:59) Rash Medications ???Medication ???Instructions ???Recorded ???Confirmed ???Type docosahexaenoic acid 200 mg 200 mg PO DAILY supplement 5 02/24/25 History capsule ( DHA) famotidine 20 mg tablet (Pepcid) 20 mg PO BID #60 tabs 02/16/25 Rx Last Menstrual Period: 06/29/24 : No Have you fallen in the past year?: No PFSH PFSH Medical History History of migraine headaches Family History Father Asthma Mother Blood clot in abdominal vein Hypertension Factor V Leiden Grandmother Breast cancer Grandfather Hypertension Myocardial infarction, Onset Age: 42 and at age 61 Grandfather Myocardial infarction Social History adopted: No household members: spouse current occupational status: student 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 current occupational exposures/hazards: No pets and animals: No history of recent travel: Yes ( - June 2024) out of state: Yes out of country: No sexually active: Yes Smoking Status: Never smoker alcohol intake: never substance use type: does not use well-balanced diet: daily or most days caffeine: Yes Type: coffee eating out: 1-3 times/week during the past year weight has: remained stable what type of physical activity do you participate in: walking frequency: 3-4 times per week duration: 15-30 minutes/day melvina/presybeterian: Uatsdin seatbelt use: always do you feel safe at home: Yes additional social history: : [employer] - [employer]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 OB Visit ZACK Calculator Estimated Delivery Date Method Current WG Current Estimate 04/05/25 LMP (Certain) 34w 2d Other Estimates 04/03/25 Ultrasound #1 34w 4d Expected Delivery Route/Plan Labor Preferences- CB/BF classes: [] labor support person: [] labor intervention preferences: [] pain management options preferred: [] cut cord/dad catch: [] : [] PP control planned: [] discussed possible routes of delivery and associated risks: [] special requests: [] Specific Issue/Plans Covid status: [] Flu vaccine: [] Tdap vaccine: declines Rhogam: na LARC form signed:yes Problem list reviewed and updated with the most current plan of care details and appropriate orders placed. Relevant counseling for the gestational age provided. Continue routine care and follow up unless otherwise noted in visit notes/problem list details Initial Weight: Not Recorded Date -???-???-???-???-??? -???-???-???-???-??? -???-???- EGA Weight BP Urine Prot -???-???-???-???-??? -???-???-???-???-??? -???-???- Glucose FHR FuHt Pres Dilation -???-???-???-???-??? -???-???-???-???-??? -???-???- Effaced St Visit Note 08/27/24 -???-???-???-???-??? -???-???-???-???-??? -???-???- 8w 3d 130 lb 6 oz 126/75 -???-???-???-???-??? -???-???-???-???-??? -???-???- 161 -???-???-???-???-??? -???-???-???-???-??? -???-???- JV- CRL is c onsistent with LMP. Desires NIPT. 09/27/24 -???-???-???-???-??? -???-???-???-???-??? -???-???- 12w 6d 134 lb 2 oz 119/86 Negative -???-???-???-???-??? -???-???-???-???-??? -???-???- Negative 168 -???-???-???-???-??? -???-???-???-???-??? -???-???- MH-No VB. Na usea improving. Br US to confirm FHT. PN labs and NIPT today 11/26/24 -???-???-???-???-??? -???-???-???-???-??? -???-???- 21w 3d 146 lb 3 oz 136/86 Negative -???-???-???-???-??? -???-???-???-???-??? -???-???- Negative 150 -???-???-???-???-??? -???-???-???-???-??? -???-???- SM- no vb lo f good fm no regular ctx nl anatomy 12/23/24 -???-???-???-???-??? -???-???-???-???-??? -???-???- 25w 2d 151 lb 8 oz 132/87 Negative -???-???-???-???-??? -???-???-???-???-??? -???-???- Negative 155 25 -???-??? (more content not included)... Normal [facility] Platelet countOrdered By: Lei Maldonado on 02-24-2025 Platelets (Bld) [#/Vol] 427 10*3/uL 150-450 [facility] Potassium measurement (mass/ volume)Ordered By: Mally Maldonado on 02-24-2025 Potassium (Unsp spec) [Mass/Vol] 3.7 mmol/L 3.3-5.1 [facility] Protein+Creatinine Ratio,Uri neon 02-24-2025 PROT:CRE RATIO 259 mg/g CRE High 0-200 [facility] Comment on above: Performed By: #### L 3890.6006, L100.0100, L501.0250, L509.8002 #### [facility] [address] [place], [address] PROTEIN,UR.RAN. < 6.0 Normal 0.0-12.0 [facility] Comment on above: Performed By: #### L 3890.6006, L100.0100, L501.0250, L509.8002 #### [facility] [address] [place], [address] UR CREAT 22.60 mg/dL Low 28.00-217.00 [facility] Comment on above: Performed By: #### L 3890.6006, L100.0100, L501.0250, L509.8002 #### [facility] [address] [place], [address] RBC Auto (Bld) [#/Vol]Ordere d By: Mally Maldonado on 02-24-2025 RBC (Bld) [#/Vol] 3.92 10*6/uL Low 4.2-5.4 [facility] Random urine creatinine mariza urement (mass/volume)Ordered By: Mally Maldonado on 02-24-2025 Creatinine Unsp time (U) [Mass/Vol] 22.60 mg/dL Low 28.00-217.00 [facility] Serum creatinine measurement (mass/volume)Ordered By: Mally Maldonado on 02-24-2025 Creatinine [Mass/Vol] 0.58 mg/dL Low 0.70-1.20 [facility] Serum globulin measurementOr dered By: Mally Maldonado on 02-24-2025 Globulin (S) [Mass/Vol] 3.6 g/dL 2.2-4.2 [facility] Serum glucose measurement (m ass/volume)Ordered By: Mally Maldonado on 02-24-2025 Glucose [Mass/Vol] 80 mg/dL 70-99 [facility] Serum or plasma alanine villaseñor otransferase (ALT) measurementOrdered By: Mally Maldonado on 02-24-2025 ALT [Catalytic activity/Vol] 9 U/L <35 [facility] Serum or plasma albumin mariza urement (mass/volume)Ordered By: Mally Maldonado on 02-24-2025 Albumin [Mass/Vol] 3.8 g/dL 3.5-5.0 [facility] Serum or plasma albumin/glob ulin mass ratioOrdered By: Mally Maldonado on 02-24-2025 Albumin/Globulin [Mass ratio] 1.0 {ratio} 0.9-2.4 [facility] Serum or plasma alkaline vicky sphatase measurementOrdered By: Mally Maldonado on 02-24-2025 ALP [Catalytic activity/Vol] 159 U/L High 35-104 [facility] Serum or plasma calcium mariza urement (mass/volume)Ordered By: Mally Maldonado on 02-24-2025 Calcium [Mass/Vol] 9.2 mg/dL 7.6-11.0 [facility] Serum or plasma urea nitroge n measurement (mass/volume)Ordered By: Mally Maldonado on 02-24-2025 Urea nitrogen [Mass/Vol] 6 mg/dL 4-19 [facility] Sodium levelOrdered By: Jyoti Maldonado on 02-24-2025 Sodium [Moles/Vol] 135 mmol/L 133-145 [facility] Total proteinOrdered By: Duy Maldonado on 02-24-2025 Protein [Mass/Vol] 7.4 g/dL 5.9-8.4 [facility] Urine protein measurement (m ass/volume)Ordered By: Mally Maldonado on 02-24-2025 Protein (U) [Mass/Vol] mg/dL 0.0-12.0 [facility] Urine protein/creatinine mas s ratioOrdered By: Mally Maldonado on 02-24-2025 Protein/Creatinine (U) [Mass ratio] 259 mg/g CRE High 0-200 [facility] White blood cell (WBC) count Ordered By: Mally Maldonado on 02-24-2025 WBC (Bld) [#/Vol] 15.6 10*3/uL High 4.4-11.0 [facility] Absolute lymphocyte countOrd ered By: Yudith Montero on 02-16-2025 Lymphocytes Auto (Unsp spec) [#/Vol] 1.65 10*3/uL 0.83-4.51 [facility] Absolute neutrophil countOrd ered By: Yudith Montero on 02-16-2025 Neutrophils (Bld) [#/Vol] 8.7 10*3/uL High 2.0-7.7 [facility] Anion gap in Serum or Plasma Ordered By: Yudith Montero on 02-16-2025 Anion gap [Moles/Vol] 13 mmol/L 5-15 [facility] Automated lymphocyte count a s percentage of total leukocytesOrdered By: Yudith Montero on 02-16-2025 Lymphocytes/100 WBC Auto (Unsp spec) 14.7 % Low 19-41 [facility] BUN/creatinine ratioOrdered By: Yudith Montero on 02-16-2025 Urea nitrogen/Creatinine [Mass ratio] 15.8 mg/mg 10-20 [facility] Basophil percentageOrdered B y: Yudith Montero on 02-16-2025 Basophils/100 WBC (Bld) 0.4 % 0-1 [facility] Bilirubin, totalOrdered By: Yudith Montero on 02-16-2025 Bilirubin [Mass/Vol] 0.60 mg/dL Normal 0.00-1.30 [facility] Comment on above: Performed By: #### L 500.4050, L501.0900 #### [facility] [address] [place], [place] [address] [place], [address] CBC W/Diff, Automatedon 10-2 Absolute Lymph 1.65 X10 3/uL Normal 0.83-4.51 [facility] Comment on above: Performed By: #### L 500.4050, L501.0900 #### [facility] [address] [place], [address] Absolute Neut 8.7 X10 3/uL High 2.0-7.7 [facility] Comment on above: Performed By: #### L 500.4050, L501.0900 #### [facility] [address] [place], [address] Basophils/100 WBC (Bld) 0.4 % Normal 0-1 [facility] Comment on above: Performed By: #### L 500.4050, L501.0900 #### [facility] [address] [place], [address] Eosinophils/100 WBC (Bld) 0.8 % Normal 0-5 [facility] Comment on above: Performed By: #### L 500.4050, L501.0900 #### [facility] [address] [place], [address] Erythrocyte distribution width (RBC) [Ratio] 13.0 % Normal 11.6-14.6 [facility] Comment on above: Performed By: #### L 500.4050, L501.0900 #### [facility] [address] [place], [address] Hematocrit (Bld) [Volume fraction] 32.2 % Low 37-47 [facility] Comment on above: Performed By: #### L 500.4050, L501.0900 #### [facility] [address] [place], [address] Hemoglobin (Bld) [Mass/Vol] 10.6 g/dL Low 12.0-15.0 [facility] Comment on above: Performed By: #### L 500.4050, L501.0900 #### [facility] [address] [place], [address] IG% 1.600 High 0.0-0.9 [facility] Comment on above: Result Comment: IG% - Immature Granulocytes (promyelocytes, myelocytes and metamyelocytes) > 1% indicates that a LEFT SHIFT is Present. Performed By: #### L 500.4050, L501.0900 #### [facility] [address] [place], [address] Lymphocytes/100 WBC (Bld) 14.7 % Low 19-41 [facility] Comment on above: Performed By: #### L 500.4050, L501.0900 #### [facility] [address] [place], [address] MCH (RBC) [Entitic mass] 28.5 pg Normal 27.0-32.0 [facility] Comment on above: Performed By: #### L 500.4050, L501.0900 #### [facility] [address] [place], [address] MCHC (RBC) [Mass/Vol] 32.9 g/dL Normal 32-36 [facility] Comment on above: Performed By: #### L 500.4050, L501.0900 #### [facility] [address] [place], [address] MCV (RBC) [Entitic vol] 86.6 fL Normal 81-99 [facility] Comment on above: Performed By: #### L 500.4050, L501.0900 #### [facility] [address] [place], [address] Monocytes/100 WBC (Bld) 5.0 % Normal 0-10 [facility] Comment on above: Performed By: #### L 500.4050, L501.0900 #### [facility] [address] [place], [address] Neutrophils/100 WBC (Bld) 77.5 % High 47-70 [facility] Comment on above: Performed By: #### L 500.4050, L501.0900 #### [facility] [address] [place], [address] Nucleated RBC (Bld) [#/Vol] 0 10*3/uL Normal 0-5 [facility] Comment on above: Performed By: #### L 500.4050, L501.0900 #### [facility] [address] [place], [address] Platelet mean volume (Bld) [Entitic vol] 10.2 fL Normal 6.2-12.0 [facility] Comment on above: Performed By: #### L 500.4050, L501.0900 #### [facility] [address] [place], [address] Platelets (Bld) [#/Vol] 367 10*3/uL Normal 150-450 [facility] Comment on above: Performed By: #### L 500.4050, L501.0900 #### [facility] [address] [place], [address] RBC (Bld) [#/Vol] 3.72 10*6/uL Low 4.2-5.4 [facility] Comment on above: Performed By: #### L 500.4050, L501.0900 #### [facility] [address] [place], [address] RDW SD 40.3 fl Normal 35.1-43.9 [facility] Comment on above: Performed By: #### L 500.4050, L501.0900 #### [facility] [address] [place], [address] WBC (Bld) [#/Vol] 11.2 10*3/uL High 4.4-11.0 [facility] Comment on above: Performed By: #### L 500.4050, L501.0900 #### [facility] [address] [place], [address] Carbon dioxide, total [Moles /volume] in Central venous bloodOrdered By: Yudith Montero on 02-16-2025 CO2 [Moles/Vol] 19.5 mmol/L Low 21.0-32.0 [facility] Comment on above: Performed By: #### L 500.4050, L501.0900 #### [facility] [address] [place], [address] Chloride assayOrdered By: Leonard Montero on 02-16-2025 Chloride [Moles/Vol] 104 mmol/L Normal 98-108 [facility] Comment on above: Performed By: #### L 500.4050, L501.0900 #### [facility] [address] [place], [address] Comprehensive Metabolic Prof ilon 02-16-2025 ALK PHOS 136 U/L High 35-104 [facility] Comment on above: Performed By: #### L 500.4050, L501.0900 #### [facility] [address] [place], [address] BUN/CRE 15.8 RATIO Normal 10-20 [facility] Comment on above: Performed By: #### L 500.4050, L501.0900 #### [facility] [address] [place], [address] GAP 13 Normal 5-15 [facility] Comment on above: Performed By: #### L 500.4050, L501.0900 #### [facility] [address] [place], [address] Potassium [Moles/Vol] 3.6 mmol/L Normal 3.3-5.1 [facility] Comment on above: Performed By: #### L 500.4050, L501.0900 #### [facility] [address] [place], [place], [address] T PROT 6.8 g/dL Normal 5.9-8.4 [facility] Comment on above: Performed By: #### L 500.4050, L501.0900 #### [facility] [address] [place], [address] Comprehensive Metabolic Prof ilOrdered By: Yudith Montero on 02-16-2025 AST [Catalytic activity/Vol] 14 U/L Normal <=31 [facility] Comment on above: Performed By: #### L 500.4050, L501.0900 #### [facility] [address] [place], [address] Eosinophil percentageOrdered By: Yudith Montero on 02-16-2025 Eosinophils/100 WBC (Bld) 0.8 % 0-5 [facility] Erythrocyte distribution wid th ratioOrdered By: Yudith Montero on 02-16-2025 Erythrocyte distribution width (RBC) [Ratio] 13.0 % 11.6-14.6 [facility] Erythrocyte distribution wid th standard deviationOrdered By: Yudith Montero on 02-16-2025 Erythrocyte distribution width (RBC) [Ratio] 40.3 fl 35.1-43.9 [facility] Glomerular filtration rate ( GFR) estimation/1.73 sq m using serum, plasma, or whole bOrdered By: Yudith Montero on 02-16-2025 GFR/1.73 sq M.predicted among non-blacks MDRD (S/P/Bld) [Vol rate/Area] 133 mL/min/{1.73_m2} Normal >60 [facility] Comment on above: mL/min/1.73m2 CKD-EP I Creatinine Equation (2020) Result Comment: mL/m in/1.73m2 CKD-EPI Creatinine Equation (2020) Performed By: #### L 500.4050, L501.0900 #### [facility] [address] [place], [address] Hematocrit Auto (Bld) [Volum e fraction]Ordered By: Yudith Montero on 02-16-2025 Hematocrit (Bld) [Volume fraction] 32.2 % Low 37-47 [facility] Hemoglobin measurementOrdere d By: Yudith Montero on 02-16-2025 Hemoglobin (Bld) [Mass/Vol] 10.6 g/dL Low 12.0-15.0 [facility] Immature granulocytes/100 WB C Auto (Bld)Ordered By: Yudith Montero on 02-16-2025 Immature granulocytes/100 WBC (Bld) 1.600 % High 0.0-0.9 [facility] Comment on above: IG% - Immature Granu locytes (promyelocytes, myelocytes and metamyelocytes) > 1% indicates that a LEFT SHIFT is Present. Laboratory - Chemistry and C hemistry - challengeOrdered By: Yudith Montero on 02-16-2025 Glucose Ql (U) Negative [facility] - UrinalysisOrder ed By: Yudith Montero on 02-16-2025 Protein Ql (U) Negative [facility] MCV (mean corpuscular volume ) determinationOrdered By: Yudith Montero on 02-16-2025 MCV (RBC) [Entitic vol] 86.6 fL 81-99 [facility] Mean corpuscular hemoglobin (MCH) determinationOrdered By: Yudith Montero on 02-16-2025 MCH (RBC) [Entitic mass] 28.5 pg 27.0-32.0 [facility] Mean corpuscular hemoglobin concentration (MCHC) determinationOrdered By: Yudith Montero on 02-16-2025 MCHC (RBC) [Mass/Vol] 32.9 g/dL 32-36 [facility] Mean platelet volume determi nationOrdered By: Yudith Montero on 02-16-2025 Platelet mean volume (Bld) [Entitic vol] 10.2 fL 6.2-12.0 [facility] Monocyte percentageOrdered B y: Yudith Montero on 02-16-2025 Monocytes/100 WBC (Bld) 5.0 % 0-10 [facility] Neutrophil percentageOrdered By: Yudith Montero on 02-16-2025 Neutrophils/100 WBC (Bld) 77.5 % High 47-70 [facility] Nucleated red blood cell per centageOrdered By: Yudith Montero on 02-16-2025 Nucleated RBC/100 WBC (Bld) [Ratio] 0 % 0-5 [facility] Sample Taker Operator Office Visit Reporton 02-16-2025 Sample Taker Operator Office Visit Report [facility]'s [address], [address] [place] [address] OFFICE VISIT Date of Service: 02/16/25 MR#: [id number] Acct: [id number] Name: LEONOR HAGER Rep #: [id number] : 2000 Provider: Dr. Yudith Ortiz DO Age/Sex: 24/F [place] [facility] [place]: Signed Intake Vital Signs 01/17/25 09:28 01/27/25 09:35 02/05/25 12:23 02/16/25 08:40 02/16/25 08:42 Height 5 ft 6 in 5 ft 6 in 5 ft 6 in 5 ft 6 in 5 ft 6 in Weight: 160 lb 6 oz BMI 25.9 BP 129/92 H Intake Visit Reasons: 33wk ob *per Bolt Labeler Required: No Is patient in pain?: No Allergies latex Allergy (Mild, Verified 02/16/25 08:40) Rash Medications ???Medication ???Instructions ???Recorded ???Confirmed ???Type docosahexaenoic acid 200 mg 200 mg PO DAILY supplement 5 02/16/25 History capsule ( DHA) famotidine 20 mg tablet (Pepcid) 20 mg PO BID #60 tabs 02/16/25 Rx Last Menstrual Period: 06/29/24 Zika: Zika virus screening: Negative : No PFSH PFSH Medical History History of migraine headaches Family History Father Asthma Mother Blood clot in abdominal vein Hypertension Factor V Leiden Grandmother Breast cancer Grandfather Hypertension Myocardial infarction, Onset Age: 42 and at age 61 Grandfather Myocardial infarction Social History adopted: No household members: spouse current occupational status: student 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 current occupational exposures/hazards: No pets and animals: No history of recent travel: Yes ( - June 2024) out of state: Yes out of country: No sexually active: Yes Smoking Status: Never smoker alcohol intake: never substance use type: does not use well-balanced diet: daily or most days caffeine: Yes Type: coffee eating out: 1-3 times/week during the past year weight has: remained stable what type of physical activity do you participate in: walking frequency: 3-4 times per week duration: 15-30 minutes/day melvina/presybeterian: Uatsdin seatbelt use: always do you feel safe at home: Yes additional social history: : [employer] - [employer]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 OB Visit ZACK Calculator Estimated Delivery Date Method Current WG Current Estimate 04/05/25 LMP (Certain) 33w 1d Other Estimates 04/03/25 Ultrasound #1 33w 3d Expected Delivery Route/Plan Labor Preferences- CB/BF classes: [] labor support person: [] labor intervention preferences: [] pain management options preferred: [] cut cord/dad catch: [] : [] PP control planned: [] discussed possible routes of delivery and associated risks: [] special requests: [] Specific Issue/Plans Covid status: [] Flu vaccine: [] Tdap vaccine: declines Rhogam: na LARC form signed:yes Problem list reviewed and updated with the most current plan of care details and appropriate orders placed. Relevant counseling for the gestational age provided. Continue routine care and follow up unless otherwise noted in visit notes/problem list details Initial Weight: Not Recorded Date -???-???-???-???-??? -???-???-???-???-??? -???-???- EGA Weight BP Urine Prot -???-???-???-???-??? -???-???-???-???-??? -???-???- Glucose FHR FuHt Pres Dilation -???-???-???-???-??? -???-???-???-???-??? -???-???- Effaced St Visit Note 08/27/24 -???-???-???-???-??? -???-???-???-???-??? -???-???- 8w 3d 130 lb 6 oz 126/75 -???-???-???-???-??? -???-???-???-???-??? -???-???- 161 -???-???-???-???-??? -???-???-???-???-??? -???-???- JUAN J- MEHNAZ is c onsistent with LMP. Desires NIPT. 09/27/24 -???-???-???-???-??? -???-???-???-???-??? -???-???- 12w 6d 134 lb 2 oz 119/86 Negative -???-???-???-???-??? -???-???-???-???-??? -???-???- Negative 168 -???-???-???-???-??? -???-???-???-???-??? -???-???- -No VB. Na usea improving. Br US to confirm FHT. PN labs and NIPT today 11/26/24 -???-???-???-???-??? -???-???-???-???-??? -???-???- 21w 3d 146 lb 3 oz 136/86 Negative -???-???-???-???-??? -???-???-???-???-??? -???-???- Negative 150 -???-???-???-???-??? -???-???-???-???-??? -???-???- SM- no vb lo f good fm no regular ctx nl anatomy 12/23/24 -???-???-???-???-??? -???-???-???-???-??? -???-???- 25w 2d 151 lb 8 oz 132/87 Negative -???-???-???-???-??? -???-???-???-???-??? - (more content not included)... Normal [facility] Platelet countOrdered By: Leonard Montero on 02-16-2025 Platelets (Bld) [#/Vol] 367 10*3/uL 150-450 [facility] Potassium measurement (mass/ volume)Ordered By: Yudith Montero on 02-16-2025 Potassium (Unsp spec) [Mass/Vol] 3.6 mmol/L 3.3-5.1 [facility] Protein+Creatinine Ratio,Uri neon 02-16-2025 PROT:CRE RATIO 209 mg/g CRE High 0-200 [facility] Comment on above: Performed By: #### L 500.4050, L501.0900 #### [facility] [place], [address] Protein (U) [Mass/Vol] 25.5 mg/dL High 0.0-12.0 [facility] Comment on above: Performed By: #### L 500.4050, L501.0900 #### [facility] [address] [place], [address] UR CREAT 122.00 mg/dL Normal 28.00-217.00 [facility] Comment on above: Performed By: #### L 500.4050, L501.0900 #### [facility] [address] [place], [address] RBC Auto (Bld) [#/Vol]Ordere d By: Yudith Montero on 02-16-2025 RBC (Bld) [#/Vol] 3.72 10*6/uL Low 4.2-5.4 [facility] Random urine creatinine mariza urement (mass/volume)Ordered By: Yudith Montero on 02-16-2025 Creatinine Unsp time (U) [Mass/Vol] 122.00 mg/dL 28.00-217.00 [facility] Serum creatinine measurement (mass/volume)Ordered By: Yudith Montero on 02-16-2025 Creatinine [Mass/Vol] 0.52 mg/dL Low 0.70-1.20 [facility] Comment on above: Performed By: #### L 500.4050, L501.0900 #### [facility] [address] [place], [address] Serum globulin measurementOr dered By: Yudith Montero on 02-16-2025 Globulin (S) [Mass/Vol] 3.1 g/dL Normal 2.2-4.2 [facility] Comment on above: Performed By: #### L 500.4050, L501.0900 #### [facility] [address] [place], [address] Serum glucose measurement (m ass/volume)Ordered By: Yudith Montero on 02-16-2025 Glucose [Mass/Vol] 79 mg/dL Normal 70-99 [facility] Comment on above: Performed By: #### L 500.4050, L501.0900 #### [facility] [address] [place], [address] Serum or plasma alanine villaseñor otransferase (ALT) measurementOrdered By: Yudith Montero on 02-16-2025 ALT [Catalytic activity/Vol] 8 U/L Normal <=34 [facility] Comment on above: Performed By: #### L 500.4050, L501.0900 #### [facility] [address] [place], [address] Serum or plasma albumin mariza urement (mass/volume)Ordered By: Yudith Montero on 02-16-2025 Albumin [Mass/Vol] 3.7 g/dL Normal 3.5-5.0 [facility] Comment on above: Performed By: #### L 500.4050, L501.0900 #### [facility] [address] [place], [address] Serum or plasma albumin/glob ulin mass ratioOrdered By: Yudith Montero on 02-16-2025 Albumin/Globulin [Mass ratio] 1.2 {ratio} Normal 0.9-2.4 [facility] Comment on above: Performed By: #### L 500.4050, L501.0900 #### [facility] [address] [place], [address] Serum or plasma alkaline vicyk sphatase measurementOrdered By: Yudith Montero on 02-16-2025 ALP [Catalytic activity/Vol] 136 U/L High 35-104 [facility] Serum or plasma calcium mariza urement (mass/volume)Ordered By: Yudith Montero on 02-16-2025 Calcium [Mass/Vol] 9.0 mg/dL Normal 7.6-11.0 [facility] Comment on above: Performed By: #### L 500.4050, L501.0900 #### [facility] [address] [place], [address] Serum or plasma urea nitroge n measurement (mass/volume)Ordered By: Yudith Montero on 02-16-2025 Urea nitrogen [Mass/Vol] 8 mg/dL Normal 4-19 [facility] Comment on above: Performed By: #### L 500.4050, L501.0900 #### [facility] [address] [place], [address] Sodium levelOrdered By: Rossy Montero on 02-16-2025 Sodium [Moles/Vol] 136 mmol/L Normal 133-145 [facility] Comment on above: Performed By: #### L 500.4050, L501.0900 #### [facility] [address] [place], [address] Total proteinOrdered By: Jane Montero on 02-16-2025 Protein [Mass/Vol] 6.8 g/dL 5.9-8.4 [facility] Urine protein measurement (m ass/volume)Ordered By: Yudith Montero on 02-16-2025 Protein (U) [Mass/Vol] 25.5 mg/dL High 0.0-12.0 [facility] Urine protein/creatinine mas s ratioOrdered By: Yudith Montero on 02-16-2025 Protein/Creatinine (U) [Mass ratio] 209 mg/g CRE High 0-200 [facility] White blood cell (WBC) count Ordered By: Yudith Montero on 02-16-2025 WBC (Bld) [#/Vol] 11.2 10*3/uL High 4.4-11.0 [facility] Bilirubin Test strip Ql (U)O rdered By: Mally Maldonado on 02-05-2025 Bilirubin Ql (U) Negative Negative [facility] Fibronectinon 02-06-20 25 fFIBRONECTIN Negative Normal [facility] Comment on above: Performed By: #### L 500.4050, L501.0900 #### [facility] [address] [place], [address] fibronectinOrdered By: Mally Maldonado on 02-05-2025 Fibronectin. (Vag fld) [Mass/Vol] Negative [facility] Ketones Test strip Ql (U)Ord ered By: Mally Maldonado on 02-05-2025 Ketones Ql (U) 5 mg/dl High Negative [facility] Microscopic analysis of urin e for red blood cells (RBC)Ordered By: Mally Maldonado on 02-05-2025 Microscopic analysis of urine for red blood cells (RBC) 0 SEEN /hpf 0-5 [facility] Mucus LM Ql (Urine sed)Order ed By: Mally Maldonado on 02-05-2025 Mucus Ql (Urine sed) 0 SEEN /hpf [facility] Nitrite Test strip Ql (U)Ord ered By: Mally Maldonado on 02-05-2025 Nitrite Ql (U) Negative Negative [facility] OB Triage Physician Noteon 1 OB Triage Physician Note [facility] Medical Records Department [address] [place] [address] OB Triage Physician Note 02/05/25 1357 MR#: [id number] Acct: [id number] Name: LEONOR HAGER Rep #: [id number] : 2000 24 From: Yudith Harper DO PCP: Care Physician,No Primary Status:REG CLI Y Location: [place] [id number] HPI - General HPI Narrative LEONOR HAGER, is a 24 y/o @ 31 weeks 4 days who presents to [facility] to rule out labor. She was transported at 28 weeks for threatened labor and she was sent home. her cervix per nurse exam is .5 cm today. She denies loss of fluid, vaginal bleeding, or dec fm. FFN was negative UA normal Maternal Data Information ZACK Calculator Estimated Delivery Date Method Current WG Current Estimate 04/05/25 LMP (Certain) 31w 4d Other Estimates 04/03/25 Ultrasound #1 31w 6d PFSH PFSH Medical History History of migraine headaches Home Medications ???Medication ???Instructions ???Recorded ???Last Taken ???Type docosahexaenoic acid 200 mg 200 mg PO DAILY supplement 5 01/10/25 21:00 History capsule ( DHA) 200 mg Allergy/AdvReac Type Severity Reaction Status Date / Time latex Allergy Mild Rash Verified 02/05/25 12:49 Family History Father Asthma Mother Blood clot in abdominal vein Hypertension Factor V Leiden Grandmother Breast cancer Grandfather Hypertension Myocardial infarction, Onset Age: 42 and at age 61 Grandfather Myocardial infarction Social History adopted: No household members: spouse current occupational status: student 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 current occupational exposures/hazards: No pets and animals: No history of recent travel: Yes ( - June 2024) out of state: Yes out of country: No sexually active: Yes Smoking Status: Never smoker alcohol intake: never substance use type: does not use well-balanced diet: daily or most days caffeine: Yes Type: coffee eating out: 1-3 times/week during the past year weight has: remained stable what type of physical activity do you participate in: walking frequency: 3-4 times per week duration: 15-30 minutes/day melvina/presybeterian: Uatsdin seatbelt use: always do you feel safe at home: Yes additional social history: : [employer] - [employer]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 History 1 Elective abortions Hx Para 0 Spontaneous abortions Hx # Term Pregnancies Ectopic pregnancies Hx # Pregnancies Multiple births # of living children Visit Details Expected Delivery Route/Plan Labor Preferences- CB/BF classes: [] labor support person: [] labor intervention preferences: [] pain management options preferred: [] cut cord/dad catch: [] : [] PP control planned: [] discussed possible routes of delivery and associated risks: [] special requests: [] Plans Covid status: [] Flu vaccine: [] Tdap vaccine: declines Rhogam: na LARC form signed:yes Problem list reviewed and updated with the most current plan of care details and appropriate orders placed. Relevant counseling for the gestational age provided. Continue routine care and follow up unless otherwise noted in visit notes/problem list details OB Flowsheet Initial Weight: Not Recorded Date -???-???-???-???-??? -???-???-???-???-??? -???-???- EGA Weight BP Urine Prot -???-???-???-???-??? -???-???-???-???-??? -???-???- Glucose FHR FuHt Pres Dilation -???-???-???-???-??? -???-???-???-???-??? -???-???- Effaced St Visit Note 08/27/24 -???-???-???-???-??? -???-???-???-???-??? -???-???- 8w 3d 130 lb 6 oz 126/75 -???-???-???-???-??? -???-???-???-???-??? -???-???- 161 -???-???-???-???-??? -???-???-???-???-??? -???-???- JUAN J- MEHNAZ is c onsistent with LMP. Desires NIPT. 09/27/24 -???-???-???-???-??? -???-???-???-???-??? -???-???- 12w 6d 134 lb 2 oz 119/86 Negative -???-???-???-???-??? -???-???-???-???-??? -???-???- Negative 168 -???-???-???-???-??? -???-???-???-???-??? -???-???- -No VB. Na usea improving. Br US to confirm FHT. PN labs and NIPT today 11/26/24 -???-???-???-???-??? -???-???-???-???-??? -???-???- 21w 3d 146 lb 3 oz 136/86 Negative -???-???-???-???-??? -???-???-???-???-??? -???-???- Negative 150 -???-???-???-???-??? -???-???-???-???-??? -???-???- SM- no vb lo f good fm no regular ctx nl anatomy 12/23/24 -???-???-???-???-??? -???-???-???-???-??? -???-???- 25w 2d 151 lb 8 oz 132/87 Negative -???-???-???-???-??? -???-???-???-???-??? -???-???- Negative 155 25 -???-???-???-???-??? -???-???-???-???-??? -???-???- KW- no vb/cr amping. good fm. glucose next visit. 01/11/25 -???-???-???-???-??? -???-???-???-???- (more content not included)... Normal [facility] Protein Test strip Ql (U)Ord ered By: Mally Maldonado on 02-05-2025 Protein Ql (U) 15 mg/dl High Negative [facility] Squamous epithelial cells de tection in urine sediment by light microscopyOrdered By: Mally Maldonado on 02-05-2025 Epithelial cells.squamous LM Ql (Urine sed) 5-10 SEEN /hpf 5-10 [facility] Urinalysis, Completeon 02-05 BACTERIA RARE Normal None Seen [facility] Comment on above: Order Comment: CLEAN CATCH Performed By: #### L 3890.6006, L100.0100, L501.0250, L509.8002 #### [facility] [address] [place], [address] EPI,SQUAMOUS 5-10 SEEN Normal 5-10 [facility] Comment on above: Order Comment: CLEAN CATCH Performed By: #### L 3890.6006, L100.0100, L501.0250, L509.8002 #### [facility] [address] [place], [address] WBC 0-5 SEEN Normal 0-5 [facility] Comment on above: Order Comment: CLEAN CATCH Performed By: #### L 3890.6006, L100.0100, L501.0250, L509.8002 #### [facility] [address] [place], [address] Mucus Ql (Urine sed) 0 SEEN Normal [facility] Comment on above: Order Comment: CLEAN CATCH Performed By: #### L 3890.6006, L100.0100, L501.0250, L509.8002 #### [facility] [address] [place], [address] RBC 0 SEEN Normal 0-5 [facility] Comment on above: Order Comment: CLEAN CATCH Performed By: #### L 3890.6006, L100.0100, L501.0250, L509.8002 #### [facility] [address] [place], [address] Urine clarityOrdered By: Duy Maldonado on 02-05-2025 Clarity (U) Clear Clear [facility] Urine color determinationOrd ered By: Mally Maldonado on 02-05-2025 Color (U) Yellow Yellow [facility] Urine glucose detectionOrder ed By: Mally Maldonado on 02-05-2025 Glucose Ql (U) Normal mg/dl Normal [facility] Urine leukocyte esterase det ection by dipstickOrdered By: Mally Maldonado on 02-05-2025 Leukocyte esterase Test strip Ql (U) 100 /ul High Negative [facility] Urine pHOrdered By: Mally saxena on 02-05-2025 pH (U) 6.5 [pH] 5.0 - 8.0 [facility] Urine sediment bacteria coun t by microscopy (number/high power field)Ordered By: Mally Maldonado on 02-05-2025 Bacteria LM.HPF (Urine sed) [#/Area] RARE /hpf None Seen [facility] Urine specific gravity measu rementOrdered By: Mally Maldonado on 02-05-2025 Specific gravity (U) [Rel density] 1.015 1.002-1.030 [facility] Urine urobilinogen measureme ntOrdered By: Mally Maldonado on 02-05-2025 Urobilinogen Ql (U) Normal mg/dl Normal [facility] White blood cell countOrdere d By: Mally Maldonado on 02-05-2025 White blood cell count 0-5 SEEN /hpf 0-5 [facility] - Chemistry and C hemistry - challengeOrdered By: Catie Krishnan on 02-02-2025 Glucose Ql (U) Negative [facility] - UrinalysisOrder ed By: Catie Krishnan on 02-02-2025 Protein Ql (U) Negative [facility] Sample Taker Operator Office Visit Reporton 02-02-2025 Sample Taker Operator Office Visit Report [facility]'s [address], [address] [place] [address] OFFICE VISIT Date of Service: 02/02/25 MR#: [id number] Acct: [id number] Name: LEONOR HAGER Rep #: [id number] : 2000 Provider: Dr. Catie osuna MD Age/Sex: 24/F [place] [facility] [place]: Signed Intake Vital Signs 01/17/25 09:28 01/21/25 14:17 01/27/25 09:35 02/02/25 08:52 02/02/25 08:55 Height 5 ft 6 in 5 ft 6 in 5 ft 6 in 5 ft 6 in 5 ft 6 in Weight: 157 lb 160 lb BMI 25.3 25.8 BP 145/85 H 124/87 H Intake Visit Reasons: 31wk ob *per Bolt Labeler Required: No Is patient in pain?: No Allergies latex Allergy (Mild, Verified 02/02/25 08:51) Rash Medications ???Medication ???Instructions ???Recorded ???Confirmed ???Type docosahexaenoic acid 200 mg 200 mg PO DAILY supplement 5 02/02/25 History capsule ( DHA) Last Menstrual Period: 06/29/24 Zika: Zika virus screening: Negative : No PFSH PFSH Medical History History of migraine headaches Family History Father Asthma Mother Blood clot in abdominal vein Hypertension Factor V Leiden Grandmother Breast cancer Grandfather Hypertension Myocardial infarction, Onset Age: 42 and at age 61 Grandfather Myocardial infarction Social History adopted: No household members: spouse current occupational status: student 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 current occupational exposures/hazards: No pets and animals: No history of recent travel: Yes ( - June 2024) out of state: Yes out of country: No sexually active: Yes Smoking Status: Never smoker alcohol intake: never substance use type: does not use well-balanced diet: daily or most days caffeine: Yes Type: coffee eating out: 1-3 times/week during the past year weight has: remained stable what type of physical activity do you participate in: walking frequency: 3-4 times per week duration: 15-30 minutes/day melvina/presybeterian: Uatsdin seatbelt use: always do you feel safe at home: Yes additional social history: : [employer] - [employer]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 OB Visit ZACK Calculator Estimated Delivery Date Method Current WG Current Estimate 04/05/25 LMP (Certain) 31w 1d Other Estimates 04/03/25 Ultrasound #1 31w 3d Expected Delivery Route/Plan Labor Preferences- CB/BF classes: [] labor support person: [] labor intervention preferences: [] pain management options preferred: [] cut cord/dad catch: [] : [] PP control planned: [] discussed possible routes of delivery and associated risks: [] special requests: [] Specific Issue/Plans Covid status: [] Flu vaccine: [] Tdap vaccine: declines Rhogam: na LARC form signed:yes Problem list reviewed and updated with the most current plan of care details and appropriate orders placed. Relevant counseling for the gestational age provided. Continue routine care and follow up unless otherwise noted in visit notes/problem list details Initial Weight: Not Recorded Date -???-???-???-???-??? -???-???-???-???-??? -???-???- EGA Weight BP Urine Prot -???-???-???-???-??? -???-???-???-???-??? -???-???- Glucose FHR FuHt Pres Dilation -???-???-???-???-??? -???-???-???-???-??? -???-???- Effaced St Visit Note 08/27/24 -???-???-???-???-??? -???-???-???-???-??? -???-???- 8w 3d 130 lb 6 oz 126/75 -???-???-???-???-??? -???-???-???-???-??? -???-???- 161 -???-???-???-???-??? -???-???-???-???-??? -???-???- JV- CRL is c onsistent with LMP. Zaria NIPT. 09/27/24 -???-???-???-???-??? -???-???-???-???-??? -???-???- 12w 6d 134 lb 2 oz 119/86 Negative -???-???-???-???-??? -???-???-???-???-??? -???-???- Negative 168 -???-???-???-???-??? -???-???-???-???-??? -???-???- MH-No VB. Na usea improving. Br US to confirm FHT. PN labs and NIPT today 11/26/24 -???-???-???-???-??? -???-???-???-???-??? -???-???- 21w 3d 146 lb 3 oz 136/86 Negative -???-???-???-???-??? -???-???-???-???-??? -???-???- Negative 150 -???-???-???-???-??? -???-???-???-???-??? -???-???- SM- no vb lo f good fm no regular ctx nl anatomy 12/23/24 -???-???-???-???-??? -???-???-???-???-??? -???-???- 25w 2d 151 lb 8 oz 132/87 Negative -???-???-???-???-??? -???-???-???-???-??? -???-???- Negative 155 25 -???-???-???-???-??? -???-???-???-???-??? -???-? (more content not included)... Normal [facility] Sample Taker Operator Office Visit Reporton 01-27-2025 Sample Taker Operator Office Visit Report [facility] [address], [address] [place] [address] OFFICE VISIT Date of Service: 01/27/25 MR#: [id number] Acct: [id number] Name: LEONOR HAGER Rep #: [id number] : 2000 Provider: Dr. Catie osuna MD Age/Sex: 24/F [place] [facility] [place]: Signed Intake Vital Signs 11/26/24 09:45 01/21/25 14:17 01/27/25 09:35 01/27/25 09:59 Height 5 ft 6 in 5 ft 6 in 5 ft 6 in Weight: 157 lb BMI 25.3 BP 145/85 H 121/88 H Intake Visit Reasons: 30wk ob Bolt Labeler Required: No Is patient in pain?: No Allergies latex Allergy (Mild, Verified 01/27/25 09:34) Rash Medications ???Medication ???Instructions ???Recorded ???Confirmed ???Type docosahexaenoic acid 200 mg 200 mg PO DAILY supplement 5 01/27/25 History capsule ( DHA) Last Menstrual Period: 06/29/24 Zika: Zika virus screening: Negative : No PFSH PFSH Medical History History of migraine headaches Family History Father Asthma Mother Blood clot in abdominal vein Hypertension Factor V Leiden Grandmother Breast cancer Grandfather Hypertension Myocardial infarction, Onset Age: 42 and at age 61 Grandfather Myocardial infarction Social History adopted: No household members: spouse current occupational status: student 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 current occupational exposures/hazards: No pets and animals: No history of recent travel: Yes ( - June 2024) out of state: Yes out of country: No sexually active: Yes Smoking Status: Never smoker alcohol intake: never substance use type: does not use well-balanced diet: daily or most days caffeine: Yes Type: coffee eating out: 1-3 times/week during the past year weight has: remained stable what type of physical activity do you participate in: walking frequency: 3-4 times per week duration: 15-30 minutes/day melvina/presybeterian: Uatsdin seatbelt use: always do you feel safe at home: Yes additional social history: : Emeterio - [employer]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 History 1 Elective abortions Hx Para 0 Spontaneous abortions Hx # Term Pregnancies Ectopic pregnancies Hx # Pregnancies Multiple births # of living children HPI 30wk ob Details: LEONOR HAGER is a 24 year old who presents for routine OB visit. OB Visit ZACK Calculator Estimated Delivery Date Method Current WG Current Estimate 04/05/25 LMP (Certain) 30w 2d Other Estimates 04/03/25 Ultrasound #1 30w 4d Expected Delivery Route/Plan Labor Preferences- CB/BF classes: [] labor support person: [] labor intervention preferences: [] pain management options preferred: [] cut cord/dad catch: [] : [] PP control planned: [] discussed possible routes of delivery and associated risks: [] special requests: [] Specific Issue/Plans Covid status: [] Flu vaccine: [] Tdap vaccine: declines Rhogam: na LARC form signed:yes Problem list reviewed and updated with the most current plan of care details and appropriate orders placed. Relevant counseling for the gestational age provided. Continue routine care and follow up unless otherwise noted in visit notes/problem list details Initial Weight: Not Recorded Date -???-???-???-???-??? -???-???-???-???-??? -???-???- EGA Weight BP Urine Prot -???-???-???-???-??? -???-???-???-???-??? -???-???- Glucose FHR FuHt Pres Dilation -???-???-???-???-??? -???-???-???-???-??? -???-???- Effaced St Visit Note 08/27/24 -???-???-???-???-??? -???-???-???-???-??? -???-???- 8w 3d 130 lb 6 oz 126/75 -???-???-???-???-??? -???-???-???-???-??? -???-???- 161 -???-???-???-???-??? -???-???-???-???-??? -???-???- JDee- MEHNAZ is c onsistent with LMP. Desires NIPT. 09/27/24 -???-???-???-???-??? -???-???-???-???-??? -???-???- 12w 6d 134 lb 2 oz 119/86 Negative -???-???-???-???-??? -???-???-???-???-??? -???-???- Negative 168 -???-???-???-???-??? -???-???-???-???-??? -???-???- MH-No VB. Na usea improving. Br US to confirm FHT. PN labs and NIPT today 11/26/24 -???-???-???-???-??? -???-???-???-???-??? -???-???- 21w 3d 146 lb 3 oz 136/86 Negative -???-???-???-???-??? -???-???-???-???-??? -???-???- Negative 150 -???-???-???-???-??? -???-???-???-???-??? -???-???- SM- no vb lo f good fm no regular ctx nl anatomy 12/23/24 -???-???-???-???-??? -???-???-???-???-??? -???-???- 25w 2d 151 lb 8 oz 132/87 Negative -???-???-???-???-??? -???-???-???-???-??? -???-???- Negative 155 25 -???-???-???-???-??? -???-???-???-???-??? -???-???- KW- no vb/cr amping. good fm. glucose next visit. / (more content not included)... Normal [facility] AST(SGOT)on 01-21-2025 AST [Catalytic activity/Vol] 13 U/L Normal <=31 [facility] Comment on above: Performed By: #### L 3890.6006, L100.0100, L501.0250, L509.8002 #### [facility] [address] [place], [place], [id number] Alanine Aminotransferas (SGP T)on 01-21-2025 ALT [Catalytic activity/Vol] 9 U/L Normal <=34 [facility] Comment on above: Performed By: #### L 3890.6006, L100.0100, L501.0250, L509.8002 #### [facility] [address] [place], [place], [id number] CBC-Complete Blood Cnt No Di ffon 01-21-2025 Erythrocyte distribution width (RBC) [Ratio] 12.6 % Normal 11.6-14.6 [facility] Comment on above: Performed By: #### L 3890.6006, L100.0100, L501.0250, L509.8002 #### [facility] [address] [place], [address] Hematocrit (Bld) [Volume fraction] 30.1 % Low 37-47 [facility] Comment on above: Performed By: #### L 3890.6006, L100.0100, L501.0250, L509.8002 #### [facility] [address] [place], [address] Hemoglobin (Bld) [Mass/Vol] 10.5 g/dL Low 12.0-15.0 [facility] Comment on above: Performed By: #### L 3890.6006, L100.0100, L501.0250, L509.8002 #### [facility] [address] [place], [address] MCH (RBC) [Entitic mass] 29.4 pg Normal 27.0-32.0 [facility] Comment on above: Performed By: #### L 3890.6006, L100.0100, L501.0250, L509.8002 #### [facility] [address] [place], [address] MCHC (RBC) [Mass/Vol] 34.9 g/dL Normal 32-36 [facility] Comment on above: Performed By: #### L 3890.6006, L100.0100, L501.0250, L509.8002 #### [facility] [address] [place], [address] MCV (RBC) [Entitic vol] 84.3 fL Normal 81-99 [facility] Comment on above: Performed By: #### L 3890.6006, L100.0100, L501.0250, L509.8002 #### [facility] [address] [place], [address] Platelet mean volume (Bld) [Entitic vol] 9.6 fL Normal 6.2-12.0 [facility] Comment on above: Performed By: #### L 3890.6006, L100.0100, L501.0250, L509.8002 #### [facility] [address] [place], [address] Platelets (Bld) [#/Vol] 365 10*3/uL Normal 150-450 [facility] Comment on above: Performed By: #### L 3890.6006, L100.0100, L501.0250, L509.8002 #### [facility] [address] [place], [address] RBC (Bld) [#/Vol] 3.57 10*6/uL Low 4.2-5.4 [facility] Comment on above: Performed By: #### L 3890.6006, L100.0100, L501.0250, L509.8002 #### [facility] [address] [place], [address] RDW SD 37.9 fl Normal 35.1-43.9 [facility] Comment on above: Performed By: #### L 3890.6006, L100.0100, L501.0250, L509.8002 #### [facility] [address] [place], [address] WBC (Bld) [#/Vol] 13.7 10*3/uL High 4.4-11.0 [facility] Comment on above: Performed By: #### L 3890.6006, L100.0100, L501.0250, L509.8002 #### [facility] [address] [place], [address] Erythrocyte distribution wid th ratioOrdered By: Mally Maldonado on 01-21-2025 Erythrocyte distribution width (RBC) [Ratio] 12.6 % 11.6-14.6 [facility] Erythrocyte distribution wid th standard deviationOrdered By: Mally Maldonado on 01-21-2025 Erythrocyte distribution width (RBC) [Ratio] 37.9 fl 35.1-43.9 [facility] Glomerular filtration rate ( GFR) estimation/1.73 sq m using serum, plasma, or whole bOrdered By: Mally Maldonado on 01-21-2025 GFR/1.73 sq M.predicted among non-blacks MDRD (S/P/Bld) [Vol rate/Area] 128 mL/min/{1.73_m2} >60 [facility] Comment on above: mL/min/1.73m2 CKD-EP I Creatinine Equation (2020) Hematocrit Auto (Bld) [Volum e fraction]Ordered By: Mally Maldonado on 01-21-2025 Hematocrit (Bld) [Volume fraction] 30.1 % Low 37-47 [facility] Hemoglobin measurementOrdere d By: Mally Maldonado on 01-21-2025 Hemoglobin (Bld) [Mass/Vol] 10.5 g/dL Low 12.0-15.0 [facility] - Chemistry and C hemistry - challengeOrdered By: Mally Maldonado on 01-21-2025 AST [Catalytic activity/Vol] 13 U/L <32 [facility] MCV (mean corpuscular volume ) determinationOrdered By: Mally Maldonado on 01-21-2025 MCV (RBC) [Entitic vol] 84.3 fL 81-99 [facility] Mean corpuscular hemoglobin (MCH) determinationOrdered By: Mally Maldonado on 01-21-2025 MCH (RBC) [Entitic mass] 29.4 pg 27.0-32.0 [facility] Mean corpuscular hemoglobin concentration (MCHC) determinationOrdered By: Mally Maldonado on 01-21-2025 MCHC (RBC) [Mass/Vol] 34.9 g/dL 32-36 [facility] Mean platelet volume determi nationOrdered By: Mally Maldonado on 01-21-2025 Platelet mean volume (Bld) [Entitic vol] 9.6 fL 6.2-12.0 [facility] OB Triage Progress Noteon OB Triage Progress Note [facility] Medical Records Department [address] [place] [address] OB Triage Progress Note 01/21/25 1526 MR#: [id number] Acct: [id number] Name: LEONOR HAGER Rep #: [id number] : 2000 24 From: Mally Maldonado CNM PCP: Care Physician,No Primary Status:REG CLI Y DOS: Location: [place] [address] Progress Notes Date of Service: 01/21/25 Progress Note: Patient presents for triage evaluation secondary to elevated BP at home at 28 weeks FHT: 140 Moderate variability reactive no decelerations category I tracing [place]: no Contractions Assessment and plan: normal Pre e labs, Normal serial BPs, Reactive NST, reassuring maternal and status patient discharged to home to follow-up in office . See problem list details for additional plan information. Laboratory Studies: Laboratory Tests 01/21/25 Range/Units 14:25 WBC 13.7 H (4.4-11.0) K/mm3 RBC 3.57 L (4.2-5.4) M/mm3 Hgb 10.5 L (12.0-15.0) g/dL Hct 30.1 L (37-47) % MCV 84.3 (81-99) fL MCH 29.4 (27.0-32.0) pg MCHC 34.9 (32-36) g/dL RDW Std Deviation 37.9 (35.1-43.9) fl RDW Coeff of Kelsie 12.6 (11.6-14.6) % Plt Count 365 (150-450) K/mm3 MPV 9.6 (6.2-12.0) fl Creatinine 0.61 L (0.70-1.20) mg/dL Estim Creat Clear Calc 133.13 (50-250) ml/min Est GFR (MDRD) Non-Af 128 (>60) Uric Acid 3.5 (2.6-6.0) mg/dL AST 13 (<=31) U/L ALT 9 (<=34) U/L U Random Total Protein 16.3 H (0.0-12.0) mg/dL Urine Creatinine 88.50 (28.00-217.00) mg/dL Protein/Creatinin Ratio 184 (0-200) mg/g CRE Charges/Coding Multi Select Codes Urinary/Genital Urinary/Genital CPT Codes: 35721-97 non-stress test Interp Assessment Plan (1) Epigastric pain during , antepartum: (2) Elevated blood pressure affecting in second trimester, antepartum: COMMENT: normal labs. normal BPS on unit, reactive NST (3) Headache in : QUALIFIERS: Trimester: second trimester Qualified Code(s): O26.892 - Other specified related conditions, second trimester; R51.9 - Headache, unspecified COMMENT: no vision changes. To WP, labs (4) Supervision of high-risk : QUALIFIERS: Trimester: first trimester Qualified Code(s): O09.91 - Supervision of high risk , unspecified, first trimester COMMENT: PRR G1, ZACK 04/05/25, boy Onofre : Emeterio (5) : QUALIFIERS: Weeks of gestation: 28 weeks Qualified Code(s): Z3A.28 - 28 weeks gestation of COMMENT: declined carrier and ntd screen. NIPT-low risk, gender male. nl anatomy. (6) Fibromyalgia: 01/21/25 1527 Date Mally Maldonado CNM Cosigner Signature (if applicable): Date _ CC: UVALDO Maldonado; No Primary Care Physician Signed Normal [facility] Platelet countOrdered By: Lei Maldonado on 01-21-2025 Platelets (Bld) [#/Vol] 365 10*3/uL 150-450 [facility] Protein+Creatinine Ratio,Uri neon 01-21-2025 PROT:CRE RATIO 184 mg/g CRE Normal 0-200 [facility] Comment on above: Performed By: #### L 3890.6006, L100.0100, L501.0250, L509.8002 #### [facility] [address] [place], [address] Protein (U) [Mass/Vol] 16.3 mg/dL High 0.0-12.0 [facility] Comment on above: Performed By: #### L 3890.6006, L100.0100, L501.0250, L509.8002 #### [facility] [address] [place], [address] UR CREAT 88.50 mg/dL Normal 28.00-217.00 [facility] Comment on above: Performed By: #### L 3890.6006, L100.0100, L501.0250, L509.8002 #### [facility] [address] [place], [address] RBC Auto (Bld) [#/Vol]Ordere d By: Mally Maldonado on 01-21-2025 RBC (Bld) [#/Vol] 3.57 10*6/uL Low 4.2-5.4 [facility] Random urine creatinine mariza urement (mass/volume)Ordered By: Mally Maldonado on 01-21-2025 Creatinine Unsp time (U) [Mass/Vol] 88.50 mg/dL 28.00-217.00 [facility] Serum Creatinine AND GFRon 0 01-21-2025 Creatinine [Mass/Vol] 0.61 mg/dL Low 0.70-1.20 [facility] Comment on above: Performed By: #### L 3890.6006, L100.0100, L501.0250, L509.8002 #### [facility] [address] [place], [address] ECRCL 133.13 ml/min Normal 50-250 [facility] Comment on above: Performed By: #### L 3890.6006, L100.0100, L501.0250, L509.8002 #### [facility] [address] [place], [address] GFR/1.73 sq M.predicted among non-blacks MDRD (S/P/Bld) [Vol rate/Area] 128 mL/min/{1.73_m2} Normal >60 [facility] Comment on above: Result Comment: mL/m in/1.73m2 CKD-EPI Creatinine Equation (2020) Performed By: #### L 3890.6006, L100.0100, L501.0250, L509.8002 #### [facility] [address] [place], [place], [address] Serum creatinine measurement (mass/volume)Ordered By: Mally Maldonado on 01-21-2025 Creatinine [Mass/Vol] 0.61 mg/dL Low 0.70-1.20 [facility] Serum or plasma alanine villaseñor otransferase (ALT) measurementOrdered By: Mally Maldonado on 01-21-2025 ALT [Catalytic activity/Vol] 9 U/L <35 [facility] Serum or plasma uric acid me asurement (mass/volume)Ordered By: Mally Maldonado on 01-21-2025 Urate [Mass/Vol] 3.5 mg/dL 2.6-6.0 [facility] Comment on above: The drugs N-Acetylcy steine and Metamizole may falsely depress this assay. Uric Acidon 01-21-2025 URIC 3.5 mg/dL Normal 2.6-6.0 [facility] Comment on above: Result Comment: The drugs N-Acetylcysteine and Metamizole may falsely depress this assay. Performed By: #### L 3890.6006, L100.0100, L501.0250, L509.8002 #### [facility] [address] [place], [place], [address] Urine protein measurement (m ass/volume)Ordered By: Mally Maldonado on 01-21-2025 Protein (U) [Mass/Vol] 16.3 mg/dL High 0.0-12.0 [facility] Urine protein/creatinine mas s ratioOrdered By: Mally Maldonado on 01-21-2025 Protein/Creatinine (U) [Mass ratio] 184 mg/g CRE 0-200 [facility] White blood cell (WBC) count Ordered By: Mally Maldonado on 01-21-2025 WBC (Bld) [#/Vol] 13.7 10*3/uL High 4.4-11.0 [facility] - Chemistry and C hemistry - challengeOrdered By: Catie Krishnan on 01-17-2025 Glucose Ql (U) Negative [facility] - UrinalysisOrder ed By: Catie Krishnan on 01-17-2025 Protein Ql (U) Negative [facility] Sample Taker Operator Office Visit Reporton 01-17-2025 Sample Taker Operator Office Visit Report [facility] [address], [address] [place] [address] OFFICE VISIT Date of Service: 01/17/25 MR#: [id number] Acct: [id number] Name: LEONOR HAGER Rep #: [id number] : 2000 Provider: Dr. Catie osuna MD Age/Sex: 24/F [place] [facility] [place]: Signed Intake Vital Signs 01/11/25 10:15 01/17/25 09:25 01/17/25 09:28 01/17/25 09:46 Height 5 ft 6 in 5 ft 6 in 5 ft 6 in Weight: 154 lb 4 oz BMI 24.9 BP 155/94 H 135/97 H 139/88 H Intake Visit Reasons: FU after [facility] Bolt Labeler Required: No Is patient in pain?: Yes (back pain) Allergies latex Allergy (Mild, Verified 01/17/25 09:24) Rash Medications ???Medication ???Instructions ???Recorded ???Confirmed ???Type docosahexaenoic acid 200 mg mg PO supplement 08/13/24 01/17/25 History capsule ( DHA) Last Menstrual Period: 06/29/24 Zika: Zika virus screening: Negative : No PFSH PFSH Medical History History of migraine headaches Family History Father Asthma Mother Blood clot in abdominal vein Hypertension Factor V Leiden Grandmother Breast cancer Grandfather Hypertension Myocardial infarction, Onset Age: 42 and at age 61 Grandfather Myocardial infarction Social History adopted: No household members: spouse current occupational status: student 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 current occupational exposures/hazards: No pets and animals: No history of recent travel: Yes ( - June 2024) out of state: Yes out of country: No sexually active: Yes Smoking Status: Never smoker alcohol intake: never substance use type: does not use well-balanced diet: daily or most days caffeine: Yes Type: coffee eating out: 1-3 times/week during the past year weight has: remained stable what type of physical activity do you participate in: walking frequency: 3-4 times per week duration: 15-30 minutes/day melvina/presybeterian: Uatsdin seatbelt use: always do you feel safe at home: Yes additional social history: : Emeterio - [employer]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 OB Visit ZACK Calculator Estimated Delivery Date Method Current WG Current Estimate 04/05/25 LMP (Certain) 28w 6d Other Estimates 04/03/25 Ultrasound #1 29w 1d Expected Delivery Route/Plan Labor Preferences- CB/BF classes: [] labor support person: [] labor intervention preferences: [] pain management options preferred: [] cut cord/dad catch: [] : [] PP control planned: [] discussed possible routes of delivery and associated risks: [] special requests: [] Specific Issue/Plans Covid status: [] Flu vaccine: [] Tdap vaccine: declines Rhogam: na LARC form signed:yes Problem list reviewed and updated with the most current plan of care details and appropriate orders placed. Relevant counseling for the gestational age provided. Continue routine care and follow up unless otherwise noted in visit notes/problem list details Initial Weight: Not Recorded Date -???-???-???-???-??? -???-???-???-???-??? -???-???- EGA Weight BP Urine Prot -???-???-???-???-??? -???-???-???-???-??? -???-???- Glucose FHR FuHt Pres Dilation -???-???-???-???-??? -???-???-???-???-??? -???-???- Effaced St Visit Note 08/27/24 -???-???-???-???-??? -???-???-???-???-??? -???-???- 8w 3d 130 lb 6 oz 126/75 -???-???-???-???-??? -???-???-???-???-??? -???-???- 161 -???-???-???-???-??? -???-???-???-???-??? -???-???- JV- CRL is c onsistent with LMP. Desires NIPT. 09/27/24 -???-???-???-???-??? -???-???-???-???-??? -???-???- 12w 6d 134 lb 2 oz 119/86 Negative -???-???-???-???-??? -???-???-???-???-??? -???-???- Negative 168 -???-???-???-???-??? -???-???-???-???-??? -???-???- MH-No VB. Na usea improving. Br US to confirm FHT. PN labs and NIPT today 11/26/24 -???-???-???-???-??? -???-???-???-???-??? -???-???- 21w 3d 146 lb 3 oz 136/86 Negative -???-???-???-???-??? -???-???-???-???-??? -???-???- Negative 150 -???-???-???-???-??? -???-???-???-???-??? -???-???- SM- no vb lo f good fm no regular ctx nl anatomy 12/23/24 -???-???-???-???-??? -???-???-???-???-??? -???-???- 25w 2d 151 lb 8 oz 132/87 Negative -???-???-???-???-??? -???-???-???-???-??? -???-???- Negative 155 25 -???-???-???-???-??? -???-???-???-???-??? -???-???- KW- no vb/cr amping. good f (more content not included)... Normal [facility] Urine Cultureon 01-14-2025 URC Mixed Gram Positive Organisms [place] Count 11,000-25,000 MIXC Mixed contaminants. Submit a new specimen if indicated. Normal [facility] Comment on above: Performed By: #### M 100.3641 ####[facility] [address] [place], [address] Bacteria identified Cx Nom ( U)Ordered By: Aj Hollingsworth on 01-13-2025 Interpretation and review of laboratory results Normal [facility] CBC (HEMOGRAM)on 01-13-2025 Erythrocyte distribution width (RBC) [Ratio] 12.9 % Normal 11.5-15.0 [facility] Comment on above: Performed By: #### L AB294 ####[employer] Wood: QUEENIE CASTRO ([id number])[facility])[address] [place] [address] Hematocrit (Bld) [Volume fraction] 31.3 % Low 35.0-47.0 [facility] Comment on above: Performed By: #### L AB294 ####[employer]: QUEENIE CASTRO ([id number])[facility])[address] [place] [address] Hemoglobin (Bld) [Mass/Vol] 10.5 g/dL Low 11.7-16.0 [facility] Comment on above: Performed By: #### L AB294 ####[employer]: QUEENIE CASTRO ([id number])[facility])[address] [place] [address] MCH (RBC) [Entitic mass] 29.6 pg Normal 26.0-34.0 [facility] Comment on above: Performed By: #### L AB294 ####[employer]: QUEENIE CASTRO ([id number])[facility])[address] [place] [address] MCHC 33.5 % Normal 30.5-36.0 [facility] Comment on above: Performed By: #### L AB294 ####[employer]: QUEENIE CASTRO ([id number])[facility])[address] [place] [address] MCV (RBC) [Entitic vol] 88.2 fL Normal 77.0-99.0 [facility] Comment on above: Performed By: #### L AB294 ####[employer]: QUEENIE CASTRO ([id number])[facility])[address] [place] [address] Platelet mean volume (Bld) [Entitic vol] 9.9 fL Normal 9.0-12.7 [facility] Comment on above: Performed By: #### L AB294 ####[employer]: QUEENIE CASTRO ([id number])[facility])[address] [place] [address] Platelets (Bld) [#/Vol] 347 10*3/uL Normal 140-440 [facility] Comment on above: Performed By: #### L AB294 ####[employer]: QUEENIE CASTRO ([id number])[facility])[address] [place] [address] RBC (Bld) [#/Vol] 3.55 10*6/uL Low 3.80-5.20 [facility] Comment on above: Performed By: #### L AB294 ####[employer]: QUEENIE CASTRO ([id number])[address] WBC (Bld) [#/Vol] 15.3 10*3/uL High 3.6-10.7 [facility] Comment on above: Performed By: #### L AB294 ####[employer]: QUEENIE CASTRO ([id number])[facility])[address] [place] [address] CBC panel Auto (Bld)on 01-13 Erythrocyte distribution width (RBC) [Ratio] 12.9 % 11.5 - 15.0 % [facility] Hematocrit (Bld) [Volume fraction] 31.3 % Low 35.0 - 47.0 % [facility] Hemoglobin (Bld) [Mass/Vol] 10.5 g/dL Low 11.7 - 16.0 g/dL [facility] Interpretation and review of laboratory results Abnormal [facility] MCH (RBC) [Entitic mass] 29.6 pg 26.0 - 34.[address] [facility] MCHC (RBC) [Mass/Vol] 33.5 % 30.5 - 36.0 % [facility] MCV (RBC) [Entitic vol] 88.2 fL 77.0 - 99.[address] [facility] Platelet mean volume (Bld) [Entitic vol] 9.9 fL 9.0 - 12.[address] [facility] Platelets (Bld) [#/Vol] 347 10*3/uL 140 - 440 10*3/uL [facility] RBC (Bld) [#/Vol] 3.55 10*6/uL Low 3.80 - 5.2 0 10*6/uL [facility] WBC (Bld) [#/Vol] 15.3 10*3/uL High 3.6 - 10.7 10*3/uL [facility] COMPREHENSIVE METABOLIC PANE Jeffrey 01-13-2025 Albumin [Mass/Vol] 2.9 g/dL Low 3.5-5.0 [facility] Comment on above: Performed By: #### L AB17 ####[employer]: QUEENIE CASTRO ([id number])[facility])[address] [place] [address] ALP [Catalytic activity/Vol] 94 U/L Normal 40-150 [facility] Comment on above: Performed By: #### L AB17 ####[employer]: QUEENIE CASTRO ([id number])[facility] ([facility])[address] [place] [address] ALT [Catalytic activity/Vol] 8 U/L Normal <30 [facility] Comment on above: Performed By: #### L AB17 ####Boatbuilder Wood: QUEENIE CASTRO ([id number])[facility] ([facility])[address] [place] [address] Anion gap [Moles/Vol] 5 mmol/L Normal 3-13 [facility] Comment on above: Performed By: #### L AB17 ####Boatbuilder Wood: QUEENIE CASTRO ([phone])[facility])[address] [place] [address] AST [Catalytic activity/Vol] 16 U/L Normal <34 [facility] Comment on above: Performed By: #### L AB17 ####Boatbuilder Wood: QUEENIE CASTRO ([id number])[facility])[address] [place] [address] Bilirubin [Mass/Vol] 0.8 mg/dL Normal <1.2 [facility] Comment on above: Performed By: #### L AB17 ####Boatbuilder Wood: QUEENIE [id number])[facility] [place] [address] Calcium [Mass/Vol] 8.7 mg/dL Normal 8.4-10.2 [facility] Comment on above: Performed By: #### L AB17 ####Boatbuilder Wood: QUEENIE CASTRO ([id number])[facility] [place] [address] Chloride [Moles/Vol] 108 mmol/L High 98-107 [facility] Comment on above: Performed By: #### L AB17 ####Boatbuilder Wood: QUEENIE CASTRO ([id number])[facility] ([facility])[address] [place] [address] CO2 [Moles/Vol] 20 mmol/L Low 22-29 [facility] Comment on above: Performed By: #### L AB17 ####Boatbuilder Wood: QUEENIE CASTRO ([id number])[facility] ([facility])[address] [place] [address] Creatinine [Mass/Vol] 0.54 mg/dL Low 0.57-1.11 [facility] Comment on above: Performed By: #### L AB17 ####Boatbuilder Wood: QUEENIE CASTRO ([id number])[facility])[address] [place] [address] GLOMERULAR FILTRATION RATE ML/MIN/1.73 SQ M.PREDICTED >90.0 Normal >60.0 [facility] Comment on above: Result Comment: Calc ulation based on the Chronic Kidney Disease Epidemiology Collaboration (CKD-EPI) equation refit without adjustment for race Performed By: #### L AB17 ####Boatbuilder Wood: QUEENIE CASTRO ([id number])[facility] ([facility])[address] [place] [address] [place] Glucose [Mass/Vol] 96 mg/dL Normal 74-100 [facility] Comment on above: Performed By: #### L AB17 ####Boatbuilder Wood: QUEENIE CASTRO ([id number])[facility] ([facility])[address] [place] [address] [place] Potassium [Moles/Vol] 4.1 mmol/L Normal 3.5-5.1 [facility] Comment on above: Result Comment: [facility] potassium values may be up to 0.5 mmol/L lower than serum values. Performed By: #### L AB17 ####Boatbuilder Wood: QUEENIE CASTRO ([id number])[facility] ([facility])[address] [place] [address] Protein [Mass/Vol] 6.8 g/dL Normal 6.4-8.3 [facility] Comment on above: Performed By: #### L AB17 ####Boatbuilder Wood: QUEENIE CASTRO ([id number])[facility])[address] [place] [address] Sodium [Moles/Vol] 133 mmol/L Low 136-145 [facility] Comment on above: Performed By: #### L AB17 ####Boatbuilder Wood: QUEENIE CASTRO ([id number])[facility])[address] [place] [address] Urea nitrogen [Mass/Vol] 7 mg/dL Low 8-21 [facility] Comment on above: Performed By: #### L AB17 ####Boatbuilder Wood: QUEENIE CASTRO ([id number])[facility])[address] [place] [address] Comprehensive metabolic 1998 panelon 01-13-2025 Albumin [Mass/Vol] 2.9 g/dL Low 3.5 - 5.0 g/dL [facility] ALP [Catalytic activity/Vol] 94 U/L 40 - 150 U/L [facility] ALT [Catalytic activity/Vol] 8 U/L NINF - 30 U/L [facility] Anion gap [Moles/Vol] 5 mmol/L 3 - 13 mmol/L [facility] AST [Catalytic activity/Vol] 16 U/L NINF - 34 U/L [facility] Bilirubin [Mass/Vol] 0.8 mg/dL NINF - 1.2 mg/dL [facility] Calcium [Mass/Vol] 8.7 mg/dL 8.4 - 10. 2 mg/dL [facility] Chloride [Moles/Vol] 108 mmol/L High 98 - 10 7 mmol/L [facility] CO2 [Moles/Vol] 20 mmol/L Low 22 - 29 mmol/L [facility] Creatinine [Mass/Vol] 0.54 mg/dL Low 0.57 - 1.11 mg/dL [facility] GFR/1.73 sq M.predicted (S/P/Bld) [Vol rate/Area] - PINF [facility] Comment on above: Calculation based on the Chronic Kidney Disease Epidemiology Collaboration (CKD-EPI) equation refit without adjustment for race Glucose [Mass/Vol] 96 mg/dL 74 - 100 mg/dL [facility] Interpretation and review of laboratory results Abnormal [facility] Potassium [Moles/Vol] 4.1 mmol/L 3.5 - 5.1 mmol/L [facility] Comment on above: Plasma potassium ashly ues may be up to 0.5 mmol/L lower than serum values. Protein [Mass/Vol] 6.8 g/dL 6.4 - 8.3 g/dL [facility] Sodium [Moles/Vol] 133 mmol/L Low 136 - 145 mmol/L [facility] Urea nitrogen [Mass/Vol] 7 mg/dL Low 8 - 21 mg/d L [facility] Laboratory - Chemistry and C hemistry - challengeon 01-13-2025 Glucose [Mass/Vol] 120 mg/dL High 70 - 100 mg/dL [facility] Glucose [Mass/Vol] 150 mg/dL High 70 - 100 mg/dL [facility] Laboratory - Microbiology an d Antimicrobial susceptibilityOrdered By: Aj Hollingsworth on 01-13-2025 Bacteria identified Cx Nom (U) Normal urogenital dano present [facility] No Panel Informationon 01-13 Interpretation and review of laboratory results Abnormal [facility] Performed by: [address] [address] CLIA ID: [id number] [facility] Interpretation and review of laboratory results Abnormal [facility] Performed by: [facility], [address] [place] [id number] CLIA ID: [id number] [facility] No Panel InformationOrdered By: Annette Gamboa on 01-13-2025 Interpretation and review of laboratory results Normal [facility] Toxoplasma IgM NINF [facility] Interpretive Information: Results of 1.1 Tiff or greater = POSITIVE Results of 0.9 Tiff - 1.0 Tiff = EQUIVOCAL Results of 0.8 Tiff or less = NEGATIVE NOTES: If an equivocal result is interpreted, an antibody status is unable to be determined. Collect new specimen if clinically indicated. This is a qualitative test. The numeric antibody index reported does not correspond to antibody concentrations. [facility] Nursing Noteon 01-13-2025 Nursing Note Discharge instructions given to the patient at this time. labor precautions reviewed. Patient will follow up with her own physician in [place]. IV removed. Patient discharged to home ambulatory, accompanied by . Normal [facility] Progress Noteon 01-13-2025 Progress Note Nutrition rescreen completed. Patient assigned a level 1. Normal [facility] Progress Note Attestation signed by Mona Hughes DO at 01/13/2025 8:33 PM Hospital Care (Present): I was present with the [facility] resident during my history and exam. I discussed the case with the resident and agree with the findings and plan as documented in the resident's note. . 24 y.o. yo at 28w2d hospital day 0 with: Patient Active Problem List Diagnosis Threatened labor, antepartum Stable PTL - no further cervical dilations. Rare contraction (felt one today). heart rate tracing reassuring. Normal BP. NEWELL resolved. ventriculomegaly suspected, however US image suboptimal due to position. Follow-up US in 1 week. Labs pending: CMV IgG, IgM, toxo IgG, sflt:plgf. Stable for DC to home. Preeclampsia precautions and PTL precautions reviewed. Chart review and preparation: 10 minutes. Face to face: 12 minutes. Documentation and care coordination: 8 minutes. Total time spent on patient care today: 30 minutes. Maternal Medicine Service Resident Progress Note 01/13/2025 5:57 AM 01/11/2025 Hospital Day: 3 Leonor Hager, 24 y.o. 28w2d Patient has been seen and examined. Pt sleeping comfortably this morning. Allowed to sleep. Vitals: 01/12/25 1535 01/12/25 1609 01/12/25201201/13/25 0107 BP: 129/82 137/84 106/62 Pulse: 82 85 81 89 Resp: Temp: 36.9 ?C (98.4 ?F) 37.1 ?C (98.7 ?F) 36.5 ?C (97.7 ?F) TempSrc: Oral Temporal Temporal SpO2: 98% 97% Weight: Height: Physical Exam: Gen: NAD, sleeping Medications: Current Medications[1] Assessment/Plan: Leonor Hager is a 24 y.o. female 28w2d Threatened Labor - Patient was transport from [place] due to blood pressure concerns while experiencing contractions and found to be one centimeter dilated on cervical exam - Vitals are stable overnight, normotensive. No questions or concerns - FHT Cat I overnight - BMZ x2 01/11-, Bgts trended through steroid window - If concerns for progression of labor consider restarting magnesium sulfate infusion - NICU consulted - Can consider discharge today pending status and symptoms Abnormal US - BPP/ Growth 01/12: 8/8, EFW 1168g (50%), AC 22%, Right lateral ventriculomegaly measuring 15 mm, however imaging was suboptimal due to position, SEEMA wnl. 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 - CMV, Toxo labs pending Chronic HTN - Patient reports elevated blood pressure since early - Not on medications - Normotensive overnight - UPC negative 01/12 - Repeat labs pending - sflt-1/plgf pending Factor V Leiden - Mother and Grandmother with hx of blood clots, no personal history - Not on anticoagulation Fibromyalgia - No current medications Tachycardia-resolved - Tachycardic to 120-130s on admission - EKG showing sinus rhythm - asymptomatic, not tachycardic since admission IUP @ 28w2d - Dating by LMP - Cephalic 01/12 - Monitoring:CEFM - Diet:General - BMZ x1 on 01/11 Further plan pending d/w attending. Tnoie Gregory 01/13/2025, 5:57 AM Jarocho Head MD [1] Current Facility-Administere d Medications Medication Dose Route Frequency Provider Last Rate Last Admin acetaminophen (Tylenol) tablet 650 mg 650 mg Oral q4h PRN Kenton Booker DO 650 mg at 01/12/25 2153 calcium gluconate 10 % injection 1 g 1 g IntraVENous PRN Kenton Booker DO influenza vaccine tiss-cult subunt (Flucelvax) STANDARD-DOSE injection 0.5 mL 0.5 mL IntraMUSCular Once Kenton Booker DO ondansetron ODT (Zofran-ODT) disintegrating tablet 4 mg 4 mg Oral q8h PRN Kenton Booker DO Or ondansetron (Zofran) injection 4 mg 4 mg IntraVENous q6h PRN Kenton Booker, vitamin tablet 1 tablet Oral Daily Kenton Booker DO 1 tablet at 01/12/25 0929 sodium chloride 0.9 % infusion 5-250 mL/hr IntraVENous PRN Kenton Booker DO sodium chloride 0.9% (NS) flush 10 mL 10 mL IntraVENous 2 times per day Kenton Booker DO 10 mL at 01/12/25 2201 sodium chloride 0.9% (NS) flush 10 mL 10 mL IntraVENous PRN Kenton Booker DO [facility] [id number] 01-12-2025 [id number] Date: 01/12/2025 Name: Leonor Hager : [address] [facility] Information [place] Patient Information Primary Caregiver: Self Accompanied by/Relationship: S/O;Family Marital Status: Support System: SO/Family Hinduism/Cultural Factors: None Activities of Daily Living Communication: See demographics Living Arrangements Current Residence: Private residence Lives With: S/O; Family Support System: S/O; Family Income Information Income Source: Not Employed Financial Resource Strain How hard is it for you to pay for the very basics like food, housing, medical care and heating? N/A Housing Stability In the last 12 months, was there a time when you did not have a steady place to sleep or slept in a chcf (including now)? No Transportation Needs Has the lack of Transportation kept you from medical appointments? No In the past 12 months, has the lack of transportation kept you from meetings, work, or from getting things needed for daily living? No Food Insecurity Within the past 12 months, have you worried that your food would run out before you got the money to buy more? No Stress Do you feel stress - tense, restless, nervous, or anxious, or unable to sleep at night because you mind is troubled all the time? Mood stable Referral To Financial Resources: N/A Community Resources: PNU folder given upon admission to PNU Unit Social Work: N/A CLP: N/A Medical Information 24 year old admitted for threatened labor at 28 weeks. 1 para 0. Consults MFM chronic HTN. Factor v Leiden fibromyalgia tachycardia. Discharge Plan Home or Community Resources: PNU Admission folder given upon admission to unit Equipment: N/A Education Given: PNU admit folder and see Education Tab Additional Information: N/A Mental Health Services: N/A Developmental Delay: N/A Children's Services: N/A Normal [facility] CBC W/Diff, Automatedon 12-27 Absolute Neut Normal 2.0-7.7 [facility] Comment on above: Result Comment: Canc elled via OM: Order cancelled - Patient discharged Performed By: #### L 100.0100 ####[facility] [address] [facility] [place], [place], [id number] HCT Normal 37-47 [facility] Comment on above: Result Comment: Canc elled via OM: Order cancelled - Patient discharged Performed By: #### L 100.0100 ####[facility] [address] [facility]. [place], [place], [id number] HGB Normal 12.0-15.0 [facility] Comment on above: Result Comment: Canc elled via OM: Order cancelled - Patient discharged Performed By: #### L 100.0100 ####[facility] [address] [place], [address] MCH Normal 27.0-32.0 [facility] Comment on above: Result Comment: Canc elled via OM: Order cancelled - Patient discharged Performed By: #### L 100.0100 ####[facility] [address] [place], [address] MCHC Normal 32-36 [facility] Comment on above: Result Comment: Canc elled via OM: Order cancelled - Patient discharged Performed By: #### L 100.0100 ####[facility] [address] [place], [address] MCV Normal 81-99 [facility] Comment on above: Result Comment: Canc elled via OM: Order cancelled - Patient discharged Performed By: #### L 100.0100 ####[facility] [address] [place], [address] NEUT% Normal 47-70 [facility] Comment on above: Result Comment: Canc elled via OM: Order cancelled - Patient discharged Performed By: #### L 100.0100 ####[facility] [address] [place], [address] PLT Normal 150-450 [facility] Comment on above: Result Comment: Canc elled via OM: Order cancelled - Patient discharged Performed By: #### L 100.0100 ####[facility] [address] [place], [address] RBC Normal 4.2-5.4 [facility] Comment on above: Result Comment: Canc elled via OM: Order cancelled - Patient discharged Performed By: #### L 100.0100 ####[facility] [address] [place], [address] RDW CV Normal 11.6-14.6 [facility] Comment on above: Result Comment: Canc elled via OM: Order cancelled - Patient discharged Performed By: #### L 100.0100 ####[facility] [address] [place], [address] RDW SD Normal 35.1-43.9 [facility] Comment on above: Result Comment: Canc elled via OM: Order cancelled - Patient discharged Performed By: #### L 100.0100 ####[facility] [address] [place], [address] WBC Normal 4.4-11.0 [facility] Comment on above: Result Comment: Canc elled via OM: Order cancelled - Patient discharged Performed By: #### L 100.0100 ####[facility] [address] [place], [address] CMV AB PANEL, IGG AND IGM (B KR [facility])on 01-12-2025 [facility] CYTOMEGALOVIRUS ANTIBODY (IGG) 2.00 U/mL High <0.60 [facility] Comment on above: Result Comment: U/mL Interpretation <0.60 Negative 0.60 - 0.69 Equivocal > or = 0.70 Positive A positive result indicates that the patient has antibody to CMV. It does not differentiate between an active or past infection. Performed By: #### L AB501, [id number] ####[facility] ([facility])[address] [place], [place] [facility] CYTOMEGALOVIRUS ANTIBODY (IGM) <30.00 Normal <30.00 [facility] Comment on above: Result Comment: AU/mL Interpretation < 30.00 No Antibody Detected 30.00 - 34.99 Equivocal > or = 35.00 Antibody Detected Results from any one IgM assay should not be used as a sole determinant of a current or recent infection. Because an IgM test can yield false positive results and low level IgM antibody may persist for more than 12 months post infection, reliance on a single test result could be misleading. Acute infection is best diagnosed by demonstrating the conversion of IgG from negative to positive. If an acute infection is suspected, consider obtaining a new specimen and submit for both IgG and IgM testing in two or more weeks. Test Performed by Jesse Casillas, [facility], [address] [place], [place] Armando Choudhary M.D., Ph.D., Director of Laboratories , [place] [id number] Performed By: #### L AB501, [id number] ####[facility] (AMDB[facility]ER)[address] [place], [place] [facility] Comprehensive Metabolic Prof ilon 01-12-2025 ALB Normal 3.5-5.0 [facility] Comment on above: Result Comment: Canc elled via OM: Order cancelled - Patient discharged Performed By: #### L 500.4050 ####[facility] [address] [facility] [address] ALK PHOS Normal 35-104 [facility] Comment on above: Result Comment: Canc elled via OM: Order cancelled - Patient discharged Performed By: #### L 500.4050 ####[facility] [address] [place], [address] ALT Normal <=34 [facility] Comment on above: Result Comment: Canc elled via OM: Order cancelled - Patient discharged Performed By: #### L 500.4050 ####[facility] [address] [place], [address] AST Normal <=31 [facility] Comment on above: Result Comment: Canc elled via OM: Order cancelled - Patient discharged Performed By: #### L 500.4050 ####[facility] [address] [place], [address] BUN Normal 4-19 [facility] Comment on above: Result Comment: Canc elled via OM: Order cancelled - Patient discharged Performed By: #### L 500.4050 ####[facility] [address] [place], [address] BUN/CRE Normal 10-20 [facility] Comment on above: Result Comment: Canc elled via OM: Order cancelled - Patient discharged Performed By: #### L 500.4050 ####[facility] [address] [place], [address] Calcium Normal 7.6-11.0 [facility] Comment on above: Result Comment: Canc elled via OM: Order cancelled - Patient discharged Performed By: #### L 500.4050 ####[facility] [address] [place], [address] CL Normal 98-108 [facility] Comment on above: Result Comment: Canc elled via OM: Order cancelled - Patient discharged Performed By: #### L 500.4050 ####[facility] [address] [place], [address] CO2 Normal 21.0-32.0 [facility] Comment on above: Result Comment: Canc elled via OM: Order cancelled - Patient discharged Performed By: #### L 500.4050 ####[facility] [address] [place], [address] CREAT,SERUM Normal 0.70-1.20 [facility] Comment on above: Result Comment: Canc elled via OM: Order cancelled - Patient discharged Performed By: #### L 500.4050 ####[facility] [address] [place], [address] eGFR Normal >60 [facility] Comment on above: Result Comment: Canc elled via OM: Order cancelled - Patient discharged Performed By: #### L 500.4050 ####[facility] [address] [place], [address] GAP Normal 5-15 [facility] Comment on above: Result Comment: Canc elled via OM: Order cancelled - Patient discharged Performed By: #### L 500.4050 ####[facility] [address] [place], [address] GLU Normal 70-99 [facility] Comment on above: Result Comment: Canc elled via OM: Order cancelled - Patient discharged Performed By: #### L 500.4050 ####[facility] [address] [place], [address] Potassium Normal 3.3-5.1 [facility] Comment on above: Result Comment: Canc elled via OM: Order cancelled - Patient discharged Performed By: #### L 500.4050 ####[facility] [address] [place], [address] T BILI Normal 0.00-1.30 [facility] Comment on above: Result Comment: Canc elled via OM: Order cancelled - Patient discharged Performed By: #### L 500.4050 ####[facility] [address] [place], [address] T PROT Normal 5.9-8.4 [facility] Comment on above: Result Comment: Canc elled via OM: Order cancelled - Patient discharged Performed By: #### L 500.4050 ####[facility] [address] [place], [address] Comprehensive Metabolic Profil Normal 133-145 [facility] Comment on above: Result Comment: Canc elled via OM: Order cancelled - Patient discharged Performed By: #### L 500.4050 ####[facility] [address] [place], [address] Creatinine (U) [Mass/Vol]on 01-12-2025 Concentration is based on a daily urine output of 1.[address] [facility] Laboratory - Chemistry and C hemistry - challengeon 01-12-2025 Glucose [Mass/Vol] 161 mg/dL High 70 - 100 mg/dL [facility] Glucose [Mass/Vol] 112 mg/dL High 70 - 100 mg/dL [facility] Glucose [Mass/Vol] 130 mg/dL High 70 - 100 mg/dL [facility] Glucose [Mass/Vol] 116 mg/dL High 70 - 100 mg/dL [facility] Laboratory - UrinalysisOrder ed By: Olga Austin on 01-12-2025 Protein (U) [Mass/Vol] mg/dL NINF - 14 mg/dL [facility] MISCELLANEOUS SENDOUT TESTon 01-12-2025 RESULT See Comment Normal [facility] Comment on above: Result Comment: ROBELS Leon COMMENTS: Pre-E Test 2nd/3rd Trimester Test: Current Result and Flag: Reference Interval: sFlt-1 998 Not Estab. PlGF 136.7 Not Estab. sFlt-1/PlGF Ratio Result 7 0-39 Interpretation Result<40: This patient is at low risk for progression to preeclampsia with severe features within 2 weeks. Performed By: #### L AB000 ####[facility] ([facility])[address] [place] [id number] N. gonorrhoeae DNA ENRIQUE+probe Ql (Cervical mucus)on 01-12-2025 C. trachomatis DNA ENRIQUE+probe Ql (Unsp spec) Not detected Not Detected [facility] Interpretation and review of laboratory results Normal [facility] N. gonorrhoeae DNA ENRIQUE+probe Ql (Unsp spec) Not detected Not Detected [facility] Methodology: real-time PCR This test is intended for medical purposes only and is not intended for the evaluation of suspected sexual abuse or for other forensic purposes. In certain contexts, culture may be required to meet applicable laws and regulations for diagnosis of C. trachomatis and N. gonorrhoeae infections. Per 2014 CDC recommmendations, this test does not include confirmation of positive results by an alternative nucleic acid target. A negative result does not exclude the possibility of infection. A result of invalid indicates that a new specimen should be collected if clinically indicated. [facility] No Panel Informationon 01-12 Interpretation and review of laboratory results Abnormal [facility] Performed by: [facility], [address] [place] [address], Formerly [facility] [address] CLIA ID: [id number] [facility] Interpretation and review of laboratory results Abnormal [facility] Performed by: [facility], [address] [place] [address], [facility] [address] CLIA ID: [id number] [facility] 1. Toussaint live intrauterine at 28w 1d. 2. The estimated weight is 1168 grams, which is at the 50%tile for this gestational age. The AC measures at the 22%tile. 3. Right lateral ventriculomegaly measuring 15mm, however imaging was suboptimal due to position. 4. The amniotic fluid index is 15.1cm, which is within normal limits. 4. BPP 12/03. RECOMMENDATIONS See inpatient chart. Follow-up SCOOP DRIVER anatomy in 1 week. If ventriculomegaly is confirmed, Treatment referral recommended. Follow up as clinically indicated and as previously scheduled. Ultrasound is not diagnostic for aneuploidy and will not detect all structural abnormalities, even if multiple exams are performed during a given . Normal ultrasound findings do not guarantee normal outcomes. [employer] [facility] OBSTETRICS REPORT (Signed Final 01/12/2025 12:01 pm) PATIENT INFO: ID #: [id number] : [birth year] (24 yrs)(F) Name: LEONOR HAGER Visit Date: 01/12/2025 10:21 am PERFORMED BY: Attending: Mona Hughes DO, FACOG Performed By: Elma Irby [facility] Referred By: KENTON BOOKER Location: [facility] IP Visit Type: Inpatient - Hospital SERVICE(S) PROVIDED: US >= 14 weeks [address] BPP w/out NST 37200 INDICATIONS: Threatened Labor Chronic hypertension, third trimester O10.913 VITAL SIGNS: Weight (lb): 154 Height: 5'6" BMI: 24.85 EVALUATION: Num Of Fetuses: 1 Heart Rate(bpm): 129 Cardiac Activity: Regular rhythm Lie: Longitudinal Presentation: Cephalic Placenta: Posterior Amniotic Fluid SEEMA FV: Within normal limits SEEMA Sum(cm) %Tile Largest Pocket(cm) 15.1 53 5 RUQ(cm) RLQ(cm) LUQ(cm) LLQ(cm) 5 3.6 2.6 3.9 BIOPHYSICAL EVALUATION: Amniotic F.V: Within normal limits F. Tone: Observed F. Movement: Observed Score: 12/03 F. Breathing: Observed BIOMETRY: BPD: 76.2 mm G.Age: 30w 4d 96 % OFD: 97.8 mm HC: 277.8 mm G.Age: 30w 3d 85 % AC: 230.8 mm G.Age: 27w 3d 22 % FL: 52.3 mm G.Age: 27w 6d 27 % LV: 13.62 mm CI: 77.9 % 70 - 86 FL/HC: 18.8 % 18.8 - 20.6 HC/AC: 1.20 1.05 - 1.21 FL/BPD: 68.6 % 71 - 87 FL/AC: 22.7 % 20 - 24 Est. FW: 1168 gm 2 lb 9 oz 50 % GESTATIONAL AGE: Clinical ZACK: 28w 1d ZACK: 04/05/25 U/S Today: 29w 1d ZACK: 03/29/25 Best: 28w 1d Det. By: Clinical ZACK ZACK: 04/05/25 ANATOMY: Cranium: Normal appearance Cavum: Suboptimal views Ventricles: Right Ventriculomegaly Choroid Plexus: Normal appearance Cerebellum: Suboptimal views Posterior Fossa: Suboptimal views Face: Normal appearance Lips: Normal appearance Palate: Suboptimal views Thoracic: Normal appearance Heart: Normal appearance RVOT: Normal appearance LVOT: Normal appearance Aortic Arch: Suboptimal views Ductal Arch: Suboptimal views Diaphragm: Normal appearance Stomach: Normal appearance Abdomen: Normal appearance Abdominal Wall: Normal appearance Cord Vessels: 3-Vessel Cord Kidneys: Normal appearance Bladder: Normal appearance Spine: Previously visualized Upper Extremities: Present Lower Extremities: Present Other: Rt lateral ventricle measures 15 mm CERVIX UTERUS ADNEXA: Right Ovary Not visualized Left Ovary Not visualized Mona Hughes DO, FACOG Electronically Signed Final Report 01/12/2025 12:01 pm [facility] RADIOLOGY SYSTEM Mona Hughes DO - 01/12/2025 OBSTETRICS REPORT (Signed Final 01/12/2025 12:01 pm) PATIENT INFO: ID #: [id number] : [birth year] (24 yrs)(F) Name: LEONOR HAGER Visit Date: 01/12/2025 10:21 am PERFORMED BY: Attending: Mona Hughes DO, FACOG Performed By: Elma Irby RDMS Referred By: KENTON BOOKER Location: [facility] IP Visit Type: Inpatient - Hospital SERVICE(S) PROVIDED: US >= 14 weeks [address] BPP w/out NST 20277 INDICATIONS: Threatened Labor Chronic hypertension, third trimester O10.913 VITAL SIGNS: Weight (lb): 154 Height: 5'6" BMI: 24.85 EVALUATION: Num Of Fetuses: 1 Heart Rate(bpm): 129 Cardiac Activity: Regular rhythm Lie: Longitudinal Presentation: Cephalic Placenta: Posterior Amniotic Fluid SEEMA FV: Within normal limits SEEMA Sum(cm) %Tile Largest Pocket(cm) 15.1 53 5 RUQ(cm) RLQ(cm) LUQ(cm) LLQ(cm) 5 3.6 2.6 3.9 BIOPHYSICAL EVALUATION: Amniotic F.V: Within normal limits F. Tone: Observed F. Movement: Observed Score: 12/03 F. Breathing: Observed BIOMETRY: BPD: 76.2 mm G.Age: 30w 4d 96 % OFD: 97.8 mm HC: 277.8 mm G.Age: 30w 3d 85 % AC: 230.8 mm G.Age: 27w 3d 22 % FL: 52.3 mm G.Age: 27w 6d 27 % LV: 13.62 mm CI: 77.9 % 70 - 86 FL/HC: 18.8 % 18.8 - 20.6 HC/AC: 1.20 1.05 - 1.21 FL/BPD: 68.6 % 71 - 87 FL/AC: 22.7 % - Est. FW: 1168 gm 2 lb 9 oz 50 % GESTATIONAL AGE: Clinical ZACK: 28w 1d ZACK: 04/05/25 U/S Today: 29w 1d ZACK: 03/29/25 Best: 28w 1d Det. By: Clinical ZACK ZACK: 04/05/25 ANATOMY: Cranium: Normal appearance Cavum: Suboptimal views Ventricles: Right Ventriculomegaly Choroid Plexus: Normal appearance Cerebellum: Suboptimal views Posterior Fossa: Suboptimal views Face: Normal appearance Lips: Normal appearance Palate: Suboptimal views Thoracic: Normal appearance Heart: Normal appearance RVOT: Normal appearance LVOT: Normal appearance Aortic Arch: Suboptimal views Ductal Arch: Suboptimal views Diaphragm: Normal appearance Stomach: Normal appearance Abdomen: Normal appearance Abdominal Wall: Normal appearance Cord Vessels: 3-Vessel Cord Kidneys: Normal appearance Bladder: Normal appearance Spine: Previously visualized Upper Extremities: Present Lower Extremities: Present Other: Rt lateral ventricle measures 15 mm CERVIX UTERUS ADNEXA: Right Ovary Not visualized Left Ovary Not visualized Mona Hughes DO, FACOG Electronically Signed Final Report 01/12/2025 12:01 pm IMPRESSION: 1. Toussaint live intrauterine at 28w 1d. 2. The estimated weight is 1168 grams, which is at the 50%tile for this gestational age. The AC measures at the 22%tile. 3. Right lateral ventriculomegaly measuring 15mm, however imaging was suboptimal due to position. 4. The amniotic fluid index is 15.1cm, which is within normal limits. 4. BPP 8/8. RECOMMENDATIONS See inpatient chart. Follow-up SCOOP DRIVER anatomy in 1 week. If ventriculomegaly is confirmed, Treatment referral recommended. Follow up as clinically indicated and as previously scheduled. Ultrasound is not diagnostic for aneuploidy and will not detect all structural abnormalities, even if multiple exams are performed during a given . Normal ultrasound findings do not guarantee normal outcomes. [employer] [facility] Interpretation and review of laboratory results Abnormal [employer] [facility] Performed by: [address] [address] CLIA ID: [id number] [facility] [employer] Interpretation and review of laboratory results Abnormal [employer] Performed by: [address] [address] CLIA ID: [id number] [facility] Radiology Study observation (narrative) Sarath Ambrose alth Extra Tube Hold for add-ons. Sarath crenshaw Comment on above: Auto resulted. [facility] No Panel InformationOrdered By: Olga Austin on 01-12-2025 CREATININE, URINE 52.8 mg/dL 47.0 - 110 .0 mg/dL [facility] Interpretation and review of laboratory results Normal [facility] PROTEIN, URINE, RANDOMon CREATININE, URINE 52.8 mg/dL Normal 47.0-110.0 [facility] Comment on above: Performed By: #### L [id number], [id number] #### [employer]: QUEENIE CASTRO ([phone]) [facility] ([facility]) [address] [place] [address] Result Comment: ROBLES Leon COMMENTS: Concentration is based on a daily urine output of 1.5 L. Performed By: #### L AB384, [id number] ####[employer]: QUEENIE CASTRO ([id number])[facility])[address] [place] [address] TOTAL PROTEIN, UR <7 Normal <14 [facility] Comment on above: Performed By: #### L AB384, [id number] #### [employer]: QUEENIE CASTRO ([id number]) [facility] ([facility]) [address] [place] [address] Progress Noteon 01-12-2025 Progress Note Attestation signed by Mona Hughes DO at 01/12/2025 1:57 PM Hospital Care (Present): I was present with the [facility] resident during my history and exam. I discussed the case with the resident and agree with the findings and plan as documented in the resident's note. Admission on 01/11/2025 Component Date Value Ref Range Status Trichomonas vaginalis 01/11/2025 Not Detected Not Detected Final N gonorrhoeae, DNA Probe 01/11/2025 Not Detected Not Detected Final Chlamydia, DNA Probe 01/11/2025 Not Detected Not Detected Final ABO Grouping 01/11/2025 B Final Antibody Screen 01/11/2025 NEG Final Rh Type 01/11/2025 POS Final Extra Tube 01/11/2025 Hold for add-ons. Final Auto resulted. Heart Rate 01/11/2025 94 bpm Final QRSD Interval 01/11/2025 77 ms Final QT Interval 01/11/2025 365 ms Final QTC Interval 01/11/2025 458 ms Final P Hathorne 01/11/2025 60 degrees Final QRS Hathorne 01/11/2025 63 degrees Final T Wave Hathorne 01/11/2025 13 degrees Final IA Interval 01/11/2025 157 ms Final ABO Grouping 01/11/2025 B Final Rh Type 01/11/2025 POS Final Rubella IgG Scr 12/11/2024 NR Final HIV-1/HIV-2 Ab 01/11/2025 Negative Final C. TRACHOMATIS RNA 01/11/2025 Negative Final N. GONORRHOEAE RNA 01/11/2025 Negative Final HEPATITIS C ANTIBODY 01/11/2025 NR Final External Hepatitis B Surface Ag 01/11/2025 Negative Negative, None Detected Final Rubella IgG Scr 01/11/2025 NR Final Glucose 01/12/2025 116 (H) 70 - 100 mg/dL Final Glucose 01/12/2025 130 (H) 70 - 100 mg/dL Final Transport form Dr. Rincon, [facility]. Had presented for her Glucola screen. Will request results. Developed a headache and epigastric pain. Also noted to hav CTXs and was 1 cm dilated. No LOF, VB. 24 y.o. yo at 28w1d hospital day 1 with: Patient Active Problem List Diagnosis Threatened labor, antepartum - stable and asymptomatic off tocolytics at this time. Continue to follow closely. CHTN - reports increased Bps at home, 130-150/90-low 100s. - Normotensive currently - Never on anithypertensive therapy - Frontal NEWELL resolved yesterday. Now mild NEWELL again (08/05). Declines Tylenol at this time. - UPC ordered, CBC, CMP scheduled for tomorrow. - SFLT-PLFG pending ventriculomegaly (new finding today). 15mm, although suboptimal evaluation due to position. - Per pt report NIPT low risk, result requested from OB office. - No additional concerns on ultrasound. - CMV and toxo IgG and IgM ordered. - Will follow-up in 1-2 weeks. Chart review and preparation: 15 minutes. Face to face: 14 minutes. Documentation and care coordination: 15 minutes. Total time spent on patient care today: 44 minutes. Maternal Medicine Service Resident Progress Note 01/12/2025 6:03 AM 01/11/2025 Hospital Day: 2 Leonor Hager, 24 y.o. 28w1d Patient has been seen and examined. No questions or concerns. Mentions she has felt 1 contraction overnight, movement is at baseline, no vaginal bleeding or abnormal discharge. She did have a headache that was treated with Tylenol and otherwise denies chest pain, trouble breathing, visual changes. Vitals: 01/11/25 2040 01/11/25 2047 01/11/25 2341 01/12/25 0425 BP: 116/80 119/75 Pulse: (!) 131 98 91 Resp: 18 18 Temp: 36.9 ?C (98.5 ?F) 36.9 ?C (98.5 ?F) TempSrc: Temporal Temporal SpO2: 100% 98% 97% Weight: 69.9 kg (154 lb) 69.9 kg (154 lb) Height: 1.676 m (5' 6") 1.676 m (5' 6") Physical Exam: Gen: NAD HEENT: Normocephalic, Atraumatic, EOMI, MMM Resp: Lungs clear to auscultation bilaterally, no increased work of breathing Card: Regular rate Abd: Gravid Medications: Current Medications[1] Assessment/Plan: Leonor Hager is a 24 y.o. female 28w1d Threatened Labor - Patient presented to outside facility due to blood pressure concerns, however was found to be nelli and cervical exam revealed 1 cm dilated cervix - Patient was given 1 dose of Celestone, started on magnesium infusion for benefit, and transferred to [facility] unit - No questions or concerns overnight, has felt 1 contraction overnight - Vitals are stable, normotensive - BMZ x 2 on 01/12 - Status post magnesium sulfate infusion for neuroprotection, can restart if concerns for progression of labor - GBS unknown, defer PCN in setting of no cervical change since, to start if change in clinical status or patient becomes more uncomfortable - NICU consulted - CEFM overnight - Growth and biophysical profile ordered for this morning - No current contraindications to vaginal delivery Chronic HTN - Patient reports elevated Bps since early - Not on medications - BP normotensive on admission - Labs at OSH unremarkable for progression of dise (more content not included)... Normal [facility] S. agalactiae DNA ENRIQUE+probe Ql (Unsp spec)on 01-12-2025 Group B Strep Screen Not detected Not Detected [facility] Interpretation and review of laboratory results Normal [facility] Methodology: real-time PCR [facility] TOXOPLASMA GONDII ANTIBODY, IGG (BKR QUEST)on 01-12-2025 [facility] TOXOPLASMA ANTIBODY (IGG) <7.20 Normal <7.20 [facility] Comment on above: Result Comment: IU/mL Interpretation <7.20 Negative 7.20 - 8.79 Equivocal >8.79 Positive Test Performed by [employer] [facility], [facility], [address] [place] [address] Armando Choudhary M.D., Ph.D., Director of Laboratories , CLIA [id number] Performed By: #### L [id number], [id number] ####[facility] ([facility])[address] [place] [address] [facility] TOXOPLASMA GONDII ANTIBODY, IGMon 01-12-2025 TOXOPLASMA IGM ANTIBODY <0.2 Normal <=0.8 [facility] Comment on above: Result Comment: ROBLES Leon COMMENTS: Interpretive Information: Results of 1.1 Tiff or greater = POSITIVE Results of 0.9 Tiff - 1.0 Tiff = EQUIVOCAL Results of 0.8 Tiff or less = NEGATIVE NOTES: If an equivocal result is interpreted, an antibody status is unable to be determined. Collect new specimen if clinically indicated. This is a qualitative test. The numeric antibody index reported does not correspond to antibody concentrations. Performed By: #### L [id number] ####[employer]: QUEENIE CASTRO ([id number])[facility] ([address] US BIOPHYSICAL PROFILE WO NON STRESS TESTINGon 01-12-2025 US BIOPHYSICAL PROFILE WO NON STRESS TESTING OBSTETRICS REPORT (Signed Final 01/12/2025 12:01 pm) PATIENT INFO: ID #: [id number] : [birth year] (24 yrs)(F) Name: LEONOR HAGER Visit Date: 01/12/2025 10:21 am PERFORMED BY: Attending: Mona Hughes DO, FACOG Performed By: Elma Irby [facility] Referred By: KENTON BOOKER Location: [facility] IP Visit Type: Inpatient - Hospital SERVICE(S) PROVIDED: US >= 14 weeks [address] BPP w/out NST 86109 INDICATIONS: Threatened Labor Chronic hypertension, third trimester O10.913 VITAL SIGNS: Weight (lb): 154 Height: 5'6" BMI: 24.85 EVALUATION: Num Of Fetuses: 1 Heart Rate(bpm): 129 Cardiac Activity: Regular rhythm Lie: Longitudinal Presentation: Cephalic Placenta: Posterior Amniotic Fluid SEEMA FV: Within normal limits SEEMA Sum(cm) %Tile Largest Pocket(cm) 15.1 53 5 RUQ(cm) RLQ(cm) LUQ(cm) LLQ(cm) 5 3.6 2.6 3.9 BIOPHYSICAL EVALUATION: Amniotic F.V: Within normal limits F. Tone: Observed F. Movement: Observed Score: 12/03 F. Breathing: Observed BIOMETRY: BPD: 76.2 mm G.Age: 30w 4d 96 % OFD: 97.8 mm HC: 277.8 mm G.Age: 30w 3d 85 % AC: 230.8 mm G.Age: 27w 3d 22 % FL: 52.3 mm G.Age: 27w 6d 27 % LV: 13.62 mm CI: 77.9 % 70 - 86 FL/HC: 18.8 % 18.8 - 20.6 HC/AC: 1.20 1.05 - 1.21 FL/BPD: 68.6 % 71 - 87 FL/AC: 22.7 % 20 - 24 Est. FW: 1168 gm 2 lb 9 oz 50 % GESTATIONAL AGE: Clinical ZACK: 28w 1d ZACK: 04/05/25 U/S Today: 29w 1d ZACK: 03/29/25 Best: 28w 1d Det. By: Clinical ZACK ZACK: 04/05/25 ANATOMY: Cranium: Normal appearance Cavum: Suboptimal views Ventricles: Right Ventriculomegaly Choroid Plexus: Normal appearance Cerebellum: Suboptimal views Posterior Fossa: Suboptimal views Face: Normal appearance Lips: Normal appearance Palate: Suboptimal views Thoracic: Normal appearance Heart: Normal appearance RVOT: Normal appearance LVOT: Normal appearance Aortic Arch: Suboptimal views Ductal Arch: Suboptimal views Diaphragm: Normal appearance Stomach: Normal appearance Abdomen: Normal appearance Abdominal Wall: Normal appearance Cord Vessels: 3-Vessel Cord Kidneys: Normal appearance Bladder: Normal appearance Spine: Previously visualized Upper Extremities: Present Lower Extremities: Present Other: Rt lateral ventricle measures 15 mm CERVIX UTERUS ADNEXA: Right Ovary Not visualized Left Ovary Not visualized Mona Hughes DO, FACOG Electronically Signed Final Report 01/12/2025 12:01 pm IMPRESSION: 1. Toussaint live intrauterine at 28w 1d. 2. The estimated weight is 1168 grams, which is at the 50%tile for this gestational age. The AC measures at the 22%tile. 3. Right lateral ventriculomegaly measuring 15mm, however imaging was suboptimal due to position. 4. The amniotic fluid index is 15.1cm, which is within normal limits. 4. BPP 12/03. RECOMMENDATIONS See inpatient chart. Follow-up SCOOP DRIVER anatomy in 1 week. If ventriculomegaly is confirmed, Treatment referral recommended. Follow up as clinically indicated and as previously scheduled. Ultrasound is not diagnostic for aneuploidy and will not detect all structural abnormalities, even if multiple exams are performed during a given . Normal ultrasound findings do not guarantee normal outcomes. Normal [facility] US OB 14+ WEEKS SINGLE FETUS MATERNAL EVAL TRANSABDOMINALon 01-12-2025 US OB 14+ WEEKS SINGLE FETUS MATERNAL EVAL TRANSABDOMINAL OBSTETRICS REPORT (Signed Final 01/12/2025 12:01 pm) PATIENT INFO: ID #: [id number] : [birth year] (24 yrs)(F) Name: LEONOR HAGER Visit Date: 01/12/2025 10:21 am PERFORMED BY: Attending: Mona Hughes DO, FACOG Performed By: Elma Irby RDMS Referred By: KENTON BOOKER Location: [facility] IP Visit Type: Inpatient - Hospital SERVICE(S) PROVIDED: US >= 14 weeks [address] BPP w/out NST 92006 INDICATIONS: Threatened Labor Chronic hypertension, third trimester O10.913 VITAL SIGNS: Weight (lb): 154 Height: 5'6" BMI: 24.85 EVALUATION: Num Of Fetuses: 1 Heart Rate(bpm): 129 Cardiac Activity: Regular rhythm Lie: Longitudinal Presentation: Cephalic Placenta: Posterior Amniotic Fluid SEEMA FV: Within normal limits SEEMA Sum(cm) %Tile Largest Pocket(cm) 15.1 53 5 RUQ(cm) RLQ(cm) LUQ(cm) LLQ(cm) 5 3.6 2.6 3.9 BIOPHYSICAL EVALUATION: Amniotic F.V: Within normal limits F. Tone: Observed F. Movement: Observed Score: 8/8 F. Breathing: Observed BIOMETRY: BPD: 76.2 mm G.Age: 30w 4d 96 % OFD: 97.8 mm HC: 277.8 mm G.Age: 30w 3d 85 % AC: 230.8 mm G.Age: 27w 3d 22 % FL: 52.3 mm G.Age: 27w 6d 27 % LV: 13.62 mm CI: 77.9 % 70 - 86 FL/HC: 18.8 % 18.8 - 20.6 HC/AC: 1.20 1.05 - 1.21 FL/BPD: 68.6 % 71 - 87 FL/AC: 22.7 % 20 - 24 Est. FW: 1168 gm 2 lb 9 oz 50 % GESTATIONAL AGE: Clinical ZACK: 28w 1d ZACK: 04/05/25 U/S Today: 29w 1d ZACK: 03/29/25 Best: 28w 1d Det. By: Clinical ZACK ZACK: 04/05/25 ANATOMY: Cranium: Normal appearance Cavum: Suboptimal views Ventricles: Right Ventriculomegaly Choroid Plexus: Normal appearance Cerebellum: Suboptimal views Posterior Fossa: Suboptimal views Face: Normal appearance Lips: Normal appearance Palate: Suboptimal views Thoracic: Normal appearance Heart: Normal appearance RVOT: Normal appearance LVOT: Normal appearance Aortic Arch: Suboptimal views Ductal Arch: Suboptimal views Diaphragm: Normal appearance Stomach: Normal appearance Abdomen: Normal appearance Abdominal Wall: Normal appearance Cord Vessels: 3-Vessel Cord Kidneys: Normal appearance Bladder: Normal appearance Spine: Previously visualized Upper Extremities: Present Lower Extremities: Present Other: Rt lateral ventricle measures 15 mm CERVIX UTERUS ADNEXA: Right Ovary Not visualized Left Ovary Not visualized Mona Hughes DO, FACOG Electronically Signed Final Report 01/12/2025 12:01 pm IMPRESSION: 1. Toussaint live intrauterine at 28w 1d. 2. The estimated weight is 1168 grams, which is at the 50%tile for this gestational age. The AC measures at the 22%tile. 3. Right lateral ventriculomegaly measuring 15mm, however imaging was suboptimal due to position. 4. The amniotic fluid index is 15.1cm, which is within normal limits. 4. BPP 12/03. RECOMMENDATIONS See inpatient chart. Follow-up SCOOP DRIVER anatomy in 1 week. If ventriculomegaly is confirmed, Treatment referral recommended. Follow up as clinically indicated and as previously scheduled. Ultrasound is not diagnostic for aneuploidy and will not detect all structural abnormalities, even if multiple exams are performed during a given . Normal ultrasound findings do not guarantee normal outcomes. Normal [facility] 24 HR UR Creatinine Clearanc john 01-11-2025 CREAT CLEARANCE Normal 100-200 [facility] Comment on above: Order Comment: 24 HO UR URINE Result Comment: NOT COLLECTED Performed By: #### L 500.4050, L501.0900 #### [facility] [address] [place], [address] RANDOM UR TV Normal [facility] Comment on above: Order Comment: 24 HO UR URINE Result Comment: NOT COLLECTED Performed By: #### L 500.4050, L501.0900 #### [facility] [address] [place], [address] SERUM CREAT Normal 0.6-1.0 [facility] Comment on above: Order Comment: 24 HO UR URINE Result Comment: NOT COLLECTED Performed By: #### L 500.4050, L501.0900 #### [facility] [address] [place], [address] URINE CREAT Normal 28.00-217.00 [facility] Comment on above: Order Comment: 24 HO UR URINE Result Comment: NOT COLLECTED Performed By: #### L 500.4050, L501.0900 #### [facility] [address] [place], [address] ABO and Rh group Confirm Nom (Bld)on 01-11-2025 ABO group Nom (Bld) B [facility] D Ag Ql (RBC) [facility] AST(SGOT)on 01-11-2025 AST [Catalytic activity/Vol] 16 U/L Normal <=31 [facility] Comment on above: Performed By: #### L 3890.6006, L100.0100, L501.0250, L509.8002 #### [facility] [address] [place], [address] Absolute lymphocyte countOrd ered By: Butch Falcon on 01-11-2025 Lymphocytes Auto (Unsp spec) [#/Vol] 1.39 10*3/uL 0.83-4.51 [facility] Absolute neutrophil countOrd ered By: Butch Falcon on 01-11-2025 Neutrophils (Bld) [#/Vol] 8.8 10*3/uL High 2.0-7.7 [facility] Alanine Aminotransferas (SGP T)on 01-11-2025 ALT [Catalytic activity/Vol] 9 U/L Normal <=34 [facility] Comment on above: Performed By: #### L 3890.6006, L100.0100, L501.0250, L509.8002 #### [facility] [address] [place], [place], [address] Anion gap in Serum or Plasma Ordered By: Butch Falcon on 01-11-2025 Anion gap [Moles/Vol] 13 mmol/L 5-15 [facility] Automated blood erythrocyte countOrdered By: Yudith Montero on 01-11-2025 RBC (Bld) [#/Vol] 3.57 10*6/uL Low 4.2-5.4 [facility] Comment on above: Performed By: #### L 3890.6006, L100.0100, L501.0250, L509.8002 #### [facility] [address] [place], [place], [id number] Automated blood hematocrit ( percentage)Ordered By: Yudith Montero on 01-11-2025 Hematocrit (Bld) [Volume fraction] 30.8 % Low 37-47 [facility] Comment on above: Performed By: #### L 3890.6006, L100.0100, L501.0250, L509.8002 #### [facility] [address] [place], [place], [id number] Automated lymphocyte count a s percentage of total leukocytesOrdered By: Butch Falcon on 01-11-2025 Lymphocytes/100 WBC Auto (Unsp spec) 12.6 % Low 19-41 [facility] BLOOD TYPE AND SCREEN GELon 01-11-2025 ABO GROUPING B Normal [facility] Comment on above: Performed By: #### L [id number] ####Boatbuilder Wood: QUEENIE CASTRO ([phone])[facility] ([facility])[address] [place] [address] RH TYPE IN BLOOD Positive Normal [facility] Comment on above: Performed By: #### L [id number] ####Boatbuilder Wood: QUEENIE CASTRO ([phone])[facility] ([facility])[address] [place] [address] [place] BUN/creatinine ratioOrdered By: Butch Falcon on 01-11-2025 Urea nitrogen/Creatinine [Mass ratio] 12.0 mg/mg 10-20 [facility] Basophil percentageOrdered B y: Butch Falcon on 01-11-2025 Basophils/100 WBC (Bld) 0.3 % 0-1 [facility] Bilirubin Test strip Ql (U)O rdered By: Mally Maldonado on 01-11-2025 Bilirubin Ql (U) Negative Negative [facility] Bilirubin, totalOrdered By: Butch Falcon on 01-11-2025 Bilirubin [Mass/Vol] 0.50 mg/dL 0.00-1.30 [facility] Blood type and Crossmatch pa nima (Bld)on 01-11-2025 ABO group Nom (Bld) B [facility] apiOmat Blood group antibody screen GEL [facility]l [facility] Ql (RBC) Positive [facility] Healt h CBC W/Diff, Automatedon 12-27 Absolute Lymph 1.39 X10 3/uL Normal 0.83-4.51 [facility] Comment on above: Performed By: #### L 3890.6006, L100.0100, L501.0250, L509.8002 #### [facility] [address] [place], [address] Absolute Neut 8.8 X10 3/uL High 2.0-7.7 [facility] Comment on above: Performed By: #### L 3890.6006, L100.0100, L501.0250, L509.8002 #### [facility] [address] [place], [address] Basophils/100 WBC (Bld) 0.3 % Normal 0-1 [facility] Comment on above: Performed By: #### L 3890.6006, L100.0100, L501.0250, L509.8002 #### [facility] [address] [place], [address] Eosinophils/100 WBC (Bld) 0.8 % Normal 0-5 [facility] Comment on above: Performed By: #### L 3890.6006, L100.0100, L501.0250, L509.8002 #### [facility] [address] [place], [address] Erythrocyte distribution width (RBC) [Ratio] 12.7 % Normal 11.6-14.6 [facility] Comment on above: Performed By: #### L 3890.6006, L100.0100, L501.0250, L509.8002 #### [facility] [address] [place], [address] Hematocrit (Bld) [Volume fraction] 32.8 % Low 37-47 [facility] Comment on above: Performed By: #### L 3890.6006, L100.0100, L501.0250, L509.8002 #### [facility] [address] [place], [address] Hemoglobin (Bld) [Mass/Vol] 11.2 g/dL Low 12.0-15.0 [facility] Comment on above: Performed By: #### L 3890.6006, L100.0100, L501.0250, L509.8002 #### [facility] [address] [place], [address] IG% 1.400 High 0.0-0.9 [facility] Comment on above: Result Comment: IG% - Immature Granulocytes (promyelocytes, myelocytes and metamyelocytes) > 1% indicates that a LEFT SHIFT is Present. Performed By: #### L 3890.6006, L100.0100, L501.0250, L509.8002 #### [facility] [address] [place], [address] Lymphocytes/100 WBC (Bld) 12.6 % Low 19-41 [facility] Comment on above: Performed By: #### L 3890.6006, L100.0100, L501.0250, L509.8002 #### [facility] [address] [place], [address] MCH (RBC) [Entitic mass] 29.6 pg Normal 27.0-32.0 [facility] Comment on above: Performed By: #### L 3890.6006, L100.0100, L501.0250, L509.8002 #### [facility] [address] [place], [address] MCHC (RBC) [Mass/Vol] 34.1 g/dL Normal 32-36 [facility] Comment on above: Performed By: #### L 3890.6006, L100.0100, L501.0250, L509.8002 #### [facility] [address] [place], [address] MCV (RBC) [Entitic vol] 86.8 fL Normal 81-99 [facility] Comment on above: Performed By: #### L 3890.6006, L100.0100, L501.0250, L509.8002 #### [facility] [address] [place], [address] Monocytes/100 WBC (Bld) 4.8 % Normal 0-10 [facility] Comment on above: Performed By: #### L 3890.6006, L100.0100, L501.0250, L509.8002 #### [facility] [address] [place], [address] Neutrophils/100 WBC (Bld) 80.1 % High 47-70 [facility] Comment on above: Performed By: #### L 3890.6006, L100.0100, L501.0250, L509.8002 #### [facility] [address] [place], [address] Nucleated RBC (Bld) [#/Vol] 0 10*3/uL Normal 0-5 [facility] Comment on above: Performed By: #### L 3890.6006, L100.0100, L501.0250, L509.8002 #### [facility] [address] [place], [address] Platelet mean volume (Bld) [Entitic vol] 9.4 fL Normal 6.2-12.0 [facility] Comment on above: Performed By: #### L 3890.6006, L100.0100, L501.0250, L509.8002 #### [facility] [address] [place], [address] Platelets (Bld) [#/Vol] 361 10*3/uL Normal 150-450 [facility] Comment on above: Performed By: #### L 3890.6006, L100.0100, L501.0250, L509.8002 #### [facility] [address] [place], [address] RBC (Bld) [#/Vol] 3.78 10*6/uL Low 4.2-5.4 [facility] Comment on above: Performed By: #### L 3890.6006, L100.0100, L501.0250, L509.8002 #### [facility] [address] [place], [address] RDW SD 40.1 fl Normal 35.1-43.9 [facility] Comment on above: Performed By: #### L 3890.6006, L100.0100, L501.0250, L509.8002 #### [facility] [address] [place], [address] WBC (Bld) [#/Vol] 11.0 10*3/uL Normal 4.4-11.0 [facility] Comment on above: Performed By: #### L 3890.6006, L100.0100, L501.0250, L509.8002 #### [facility] [address] [place], [address] CBC-Complete Blood Cnt No Di ffon 01-11-2025 RDW SD 40.0 fl Normal 35.1-43.9 [facility] Comment on above: Performed By: #### L 3890.6006, L100.0100, L501.0250, L509.8002 #### [facility] [address] [place], [address] CHLAMYDIA/GONORRHEAon 2024 CHLAMYDIA/GONORRHEA NEISSERIA GONORRHOEAE DNA PROBE Reference Not Detected Not Detected CHLAMYDIA TRACHOMATIS DNA PROBE Reference Not Detected Not Detected ORDER COMMENTS: Methodology: real-time PCR This test is intended for medical purposes only and is not intended for the evaluation of suspected sexual abuse or for other forensic purposes. In certain contexts, culture may be required to meet applicable laws and regulations for diagnosis of C. trachomatis and N. gonorrhoeae infections. Per 2014 CDC recommmendations, this test does not include confirmation of positive results by an alternative nucleic acid target. A negative result does not exclude the possibility of infection. A result of invalid indicates that a new specimen should be collected if clinically indicated. Normal [facility] Comment on above: Performed By: #### L [id number], [id number] #### Boatbuilder Wood: QUEENIE CASTRO ([phone]) [facility] ([facility]) [address] [place] [address] Carbon dioxide, total [Moles /volume] in Central venous bloodOrdered By: Butch Falcon on 01-11-2025 CO2 [Moles/Vol] 20.6 mmol/L Low 21.0-32.0 [facility] Chloride assayOrdered By: Rico Falcon on 01-11-2025 Chloride [Moles/Vol] 103 mmol/L 98-108 [facility] Comprehensive Metabolic Prof ilon 01-11-2025 Albumin [Mass/Vol] 3.8 g/dL Normal 3.5-5.0 [facility] Comment on above: Performed By: #### L 500.4050, L501.0900 #### [facility] [address] [place], [address] Albumin/Globulin [Mass ratio] 1.1 {ratio} Normal 0.9-2.4 [facility] Comment on above: Performed By: #### L 500.4050, L501.0900 #### [facility] [address] [place], [address] ALK PHOS 102 U/L Normal 35-104 [facility] Comment on above: Performed By: #### L 500.4050, L501.0900 #### [facility] [address] [place], [address] ALT [Catalytic activity/Vol] 10 U/L Normal <=34 [facility] Comment on above: Performed By: #### L 500.4050, L501.0900 #### [facility] [address] [place], [address] AST [Catalytic activity/Vol] 15 U/L Normal <=31 [facility] Comment on above: Performed By: #### L 500.4050, L501.0900 #### [facility] [address] [place], [address] Bilirubin [Mass/Vol] 0.50 mg/dL Normal 0.00-1.30 [facility] Comment on above: Performed By: #### L 500.4050, L501.0900 #### [facility] [address] [place], [address] BUN/CRE 12.0 RATIO Normal 10-20 [facility] Comment on above: Performed By: #### L 500.4050, L501.0900 #### [facility] [address] [place], [address] Calcium [Mass/Vol] 9.0 mg/dL Normal 7.6-11.0 [facility] Comment on above: Performed By: #### L 500.4050, L501.0900 #### [facility] [address] [place], [address] Chloride [Moles/Vol] 103 mmol/L Normal 98-108 [facility] Comment on above: Performed By: #### L 500.4050, L501.0900 #### [facility] [address] [place], [address] CO2 [Moles/Vol] 20.6 mmol/L Low 21.0-32.0 [facility] Comment on above: Performed By: #### L 500.4050, L501.0900 #### [facility] [address] [place], [address] Creatinine [Mass/Vol] 0.55 mg/dL Low 0.70-1.20 [facility] Comment on above: Performed By: #### L 500.4050, L501.0900 #### [facility] [address] [place], [address] ECRCL 147.65 ml/min Normal 50-250 [facility] Comment on above: Performed By: #### L 500.4050, L501.0900 #### [facility] [address] [place], [address] GAP 13 Normal 5-15 [facility] Comment on above: Performed By: #### L 500.4050, L501.0900 #### [facility] [address] [place], [address] GFR/1.73 sq M.predicted among non-blacks MDRD (S/P/Bld) [Vol rate/Area] 131 mL/min/{1.73_m2} Normal >60 [facility] Comment on above: Result Comment: mL/m in/1.73m2 CKD-EPI Creatinine Equation (2020) Performed By: #### L 500.4050, L501.0900 #### [facility] [address] [place], [address] Globulin (S) [Mass/Vol] 3.3 g/dL Normal 2.2-4.2 [facility] Comment on above: Performed By: #### L 500.4050, L501.0900 #### [facility] [address] [place], [address] Glucose [Mass/Vol] 86 mg/dL Normal 70-99 [facility] Comment on above: Performed By: #### L 500.4050, L501.0900 #### [facility] [address] [place], [address] Potassium [Moles/Vol] 3.5 mmol/L Normal 3.3-5.1 [facility] Comment on above: Performed By: #### L 500.4050, L501.0900 #### [facility] [address] [place], [address] Sodium [Moles/Vol] 137 mmol/L Normal 133-145 [facility] Comment on above: Performed By: #### L 500.4050, L501.0900 #### [facility] [address] [place], [address] T PROT 7.1 g/dL Normal 5.9-8.4 [facility] Comment on above: Performed By: #### L 500.4050, L501.0900 #### [facility] [address] [place], [address] Urea nitrogen [Mass/Vol] 7 mg/dL Normal 4-19 [facility] Comment on above: Performed By: #### L 500.4050, L501.0900 #### [facility] [address] [place], [address] ECG 12-LEADon 01-11-2025 ECG 12-LEAD IMPRESSION: Sinus rhythm Electronically Signed On 01-11-2025 22:21:45 EDT by Juma Berrios Normal [facility] Eosinophil percentageOrdered By: Butch Falcon on 01-11-2025 Eosinophils/100 WBC (Bld) 0.8 % 0-5 [facility] Erythrocyte distribution wid th ratioOrdered By: Yudith Montero on 01-11-2025 Erythrocyte distribution width (RBC) [Ratio] 12.9 % Normal 11.6-14.6 [facility] Comment on above: Performed By: #### L 3890.6006, L100.0100, L501.0250, L509.8002 #### [facility] [address] [place], [address] Erythrocyte distribution wid th standard deviationOrdered By: Yudith Montero on 01-11-2025 Erythrocyte distribution width (RBC) [Ratio] 40.0 fl 35.1-43.9 [facility] Fibronectinon 01-12-20 25 fFIBRONECTIN Negative Normal [facility] Comment on above: Performed By: #### L 3890.6006, L100.0100, L501.0250, L509.8002 #### [facility] [address] [place], [address] fibronectinOrdered By: Mally Maldonado on 01-11-2025 Fibronectin. (Vag fld) [Mass/Vol] Negative [facility] GROUP B STREP SCREEN BY PCRo n 01-11-2025 GROUP B STREP SCREEN BY PCR GROUP B STREP SCREEN BY PCR Reference Not Detected Not Detected ORDER COMMENTS: Methodology: real-time PCR Normal [facility] Comment on above: Performed By: #### L [id number] ####Boatbuilder Wood: QUEENIE CASTRO ([id number])[facility] ([address] Glomerular filtration rate ( GFR) estimation/1.73 sq m using serum, plasma, or whole bOrdered By: Yudith Montero on 01-11-2025 GFR/1.73 sq M.predicted among non-blacks MDRD (S/P/Bld) [Vol rate/Area] 141 mL/min/{1.73_m2} >60 [facility] Comment on above: mL/min/1.73m2 CKD-EP I Creatinine Equation (2020) Glucose Challenge Gest 1H 50 emerita 01-11-2025 GLU GEST 50g 1H 87 mg/dL Normal 70-140 [facility] Comment on above: Performed By: #### L 3890.6006, L100.0100, L501.0250, L509.8002 #### [facility] [address] [place], [address] Glucose measurement at 2 armando rs post-dose gestational glucose tolerance testOrdered By: Butch Falcon on 01-11-2025 Glucose [Mass/Vol] 87 mg/dL 70-140 [facility] H AND P Exam - OB/GYNon 12-27 H&P Exam - SIGNS SALES REPRESENTATIVE [facility] Medical Records Department [address] [place] [address] H P Exam - SIGNS SALES REPRESENTATIVE 01/11/25 1623 MR#: [id number] Acct: [id number] Name: LEONOR HAGER Rep #: [id number] : 2000 24 From: Yudith Harper DO PCP: Care Physician,No Primary Status:[facility] Location: [place] [id number] HPI - General HPI Narrative LEONOR HAGER, is a 24 y/o @ 28 weeks who presents to [facility] from the office due to bp's in the 140'/90's, epigastric pain, and 7/10 headache. She denies visual changes. consultation with M recommended to start magnesium sulfate and steriods. They are aware that her labs are normal and protein is negative. ultrasound shows adequate growth and fluid with normal placentation RUQ ultrasound shows only a 1.3 cm hemangioma and mild right hydro (11cm) Maternal Data Information ZACK Calculator Estimated Delivery Date Method Current WG Current Estimate 04/05/25 LMP (Certain) 28w 0d Other Estimates 04/03/25 Ultrasound #1 28w 2d PFSH PFSH Medical History History of migraine headaches Home Medications ???Medication ???Instructions ???Recorded ???Last Taken ???Type docosahexaenoic acid 200 mg mg PO supplement 08/13/24 01/10/25 21:00 History capsule ( DHA) 200 mg Allergy/AdvReac Type Severity Reaction Status Date / Time latex Allergy Mild Rash Verified 01/11/25 09:25 Family History Father Asthma Mother Blood clot in abdominal vein Hypertension Factor V Leiden Grandmother Breast cancer Grandfather Hypertension Myocardial infarction, Onset Age: 42 and at age 61 Grandfather Myocardial infarction Social History adopted: No household members: spouse current occupational status: student 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 current occupational exposures/hazards: No pets and animals: No history of recent travel: Yes ( - June 2024) out of state: Yes out of country: No sexually active: Yes Smoking Status: Never smoker alcohol intake: never substance use type: does not use well-balanced diet: daily or most days caffeine: Yes Type: coffee eating out: 1-3 times/week during the past year weight has: remained stable what type of physical activity do you participate in: walking frequency: 3-4 times per week duration: 15-30 minutes/day melvina/presybeterian: Uatsdin seatbelt use: always do you feel safe at home: Yes additional social history: : [employer] - [employer]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 History 1 Elective abortions Hx Para 0 Spontaneous abortions Hx # Term Pregnancies Ectopic pregnancies Hx # Pregnancies Multiple births # of living children Visit Details Expected Delivery Route/Plan Labor Preferences- CB/BF classes: [] labor support person: [] labor intervention preferences: [] pain management options preferred: [] cut cord/dad catch: [] : [] PP control planned: [] discussed possible routes of delivery and associated risks: [] special requests: [] Plans Covid status: [] Flu vaccine: [] Tdap vaccine: declines Rhogam: na LARC form signed:yes Problem list reviewed and updated with the most current plan of care details and appropriate orders placed. Relevant counseling for the gestational age provided. Continue routine care and follow up unless otherwise noted in visit notes/problem list details OB Flowsheet Initial Weight: Not Recorded Date -???-???-???-???-??? -???-???-???-???-??? -???-???- EGA Weight BP Urine Prot -???-???-???-???-??? -???-???-???-???-??? -???-???- Glucose FHR FuHt Pres Dilation -???-???-???-???-??? -???-???-???-???-??? -???-???- Effaced St Visit Note 08/27/24 -???-???-???-???-??? -???-???-???-???-??? -???-???- 8w 3d 130 lb 6 oz 126/75 -???-???-???-???-??? -???-???-???-???-??? -???-???- 161 -???-???-???-???-??? -???-???-???-???-??? -???-???- JV- CRL is c onsistent with LMP. Desires NIPT. 09/27/24 -???-???-???-???-??? -???-???-???-???-??? -???-???- 12w 6d 134 lb 2 oz 119/86 Negative -???-???-???-???-??? -???-???-???-???-??? -???-???- Negative 168 -???-???-???-???-??? -???-???-???-???-??? -???-???- MH-No VB. Na usea improving. Br US to confirm FHT. PN labs and NIPT today 11/26/24 -???-???-???-???-??? -???-???-???-???-??? -???-???- 21w 3d 146 lb 3 oz 136/86 Negative -???-???-???-???-??? -???-???-???-???-??? -???-???- Negative 150 -???-???-???-???-??? -???-???-???-???-??? -???-???- SM- no vb lo f good fm no regular ctx nl anatomy 12/23/24 -???-???-???-???-??? -???-???-???-???-??? -???-???- 25w 2d 151 lb 8 oz 132/87 Negative -???-???-???-???-??? -???-???-???-???-??? -???-???- Neg (more content not included)... Normal [facility] HBV surface Ag IA on 01-11 External Hepatitis B Surface Ag Negative Negative, [facility] HIV Non-Reactive Normal Nonreactive [facility] Comment on above: Result Comment: Non- Reactive Reactive Repeatedly reactive samples must be confirmed according to CDC recommended confirmatory algorithms. The subresults for either HIVAG or AHIV can be used as an aid in the selection of the confirmation algorithm for reactive samples. Send out specimens with Reactive results to [facility] for confirmation. Order the HIV antibody detection and differentiation: #[id number] Performed By: #### L 3890.6006, L100.0100, L501.0250, L509.8002 #### [facility] [address] [place], [address] HIV 1+2 Ab+HIV1 p24 Ag IA Ql on 01-11-2025 HIV-1/HIV-2 Ab Negative [facility] Hemoglobin measurementOrdere d By: Yudith Montero on 01-11-2025 Hemoglobin (Bld) [Mass/Vol] 10.7 g/dL Low 12.0-15.0 [facility] Comment on above: Performed By: #### L 3890.6006, L100.0100, L501.0250, L509.8002 #### [facility] [address] [place], [address] Immature granulocytes/100 WB C Auto (Bld)Ordered By: Butch Falcon on 01-11-2025 Immature granulocytes/100 WBC (Bld) 1.400 % High 0.0-0.9 [facility] Comment on above: IG% - Immature Granu locytes (promyelocytes, myelocytes and metamyelocytes) > 1% indicates that a LEFT SHIFT is Present. Ketones Test strip Ql (U)Ord ered By: Mally Maldonado on 01-11-2025 Ketones Ql (U) 150 mg/dl Negative [facility] Comment on above: CRITICAL VALUE *HCRI TICAL VALUE CALLED TO WING KEBEDE01/11/25 Crow March.RESULTS READ BACK BY SAME. LDHon 01-11-2025 LDH 148 U/L Normal 84-246 [facility] Comment on above: Performed By: #### L 3890.6006, L100.0100, L501.0250, L509.8002 #### [facility] [address] [place], [address] Laboratory - Chemistry and C hemistry - challengeOrdered By: Yudith Montero on 01-11-2025 AST [Catalytic activity/Vol] 16 U/L <32 [facility] Laboratory - Chemistry and C hemistry - challengeOrdered By: Butch Falcon on 01-11-2025 Glucose Ql (U) Negative [facility] Laboratory - Microbiology an d Antimicrobial susceptibilityon 01-11-2025 HCV Ab IA Ql NR [facility] Rubella virus IgG Ql (S) NR [facility] Laboratory - UrinalysisOrder ed By: Butch Falcon on 01-11-2025 Protein Ql (U) Trace [facility] Lactate dehydrogenase (LDH) measurementOrdered By: Yudith Montero on 01-11-2025 LDH [Catalytic activity/Vol] 148 U/L 84-246 [facility] Liveron 01-11-2025 Liver [facility] Imaging Services [address] [place] [address] Liver MR#: [id number] Acct: [id number] Name: LEONOR HAGER Rep #: [id number] : 2000 F 24 From: Wilbur Osorio MD PCP: Care Physician,No Primary Status: REG CLI Study: Liver Date of Exam: 01/11/25 Exam# [id number] Ordering Dr: Mally Maldonado CNM PROCEDURE: LIVER 01/11/2025 REASON FOR EXAM: RUQ PAIN TECHNIQUE: Procedure Code: USLI Modality: US Procedure: LIVER COMPARISON: None FINDINGS: Liver: Liver measures 15.3 cm. There is echogenic structure within right hepatic lobe measuring 1.3 x 1.3 x 1.3 cm. Gallbladder: Unremarkable gallbladder with wall thickness of 2.2 mm. Common bile duct: Normal measuring 1.3 mm Pancreas: Visualized portions are sonographically unremarkable. Other: Mild right hydronephrosis.. Right kidney measures 11 cm. US/Liver IMPRESSION: Echogenic structure within right hepatic lobe measuring 1.3 cm. Findings are likely related to underlying hemangioma. MRI correlation on nonemergent basis can be obtained if clinically indicated. Mild right hydronephrosis. Reading Location: [facility] CC: UVALDO Maldonado; No Primary Care Physician Arson And Bomb Investigator: Signed Normal [facility] MCV (mean corpuscular volume ) determinationOrdered By: Yudith Montero on 01-11-2025 MCV (RBC) [Entitic vol] 86.3 fL Normal 81-99 [facility] Comment on above: Performed By: #### L 3890.6006, L100.0100, L501.0250, L509.8002 #### [facility] [address] [place], [address] Mean corpuscular hemoglobin (MCH) determinationOrdered By: Yudith Montero on 01-11-2025 MCH (RBC) [Entitic mass] 30.0 pg Normal 27.0-32.0 [facility] Comment on above: Performed By: #### L 3890.6006, L100.0100, L501.0250, L509.8002 #### [facility] [address] [facility] [place], [address] Mean corpuscular hemoglobin concentration (MCHC) determinationOrdered By: Yudith Montero on 01-11-2025 MCHC (RBC) [Mass/Vol] 34.7 g/dL Normal 32-36 [facility] Comment on above: Performed By: #### L 3890.6006, L100.0100, L501.0250, L509.8002 #### [facility] [address] [facility] [place], [address] Mean platelet volume determi nationOrdered By: Yudith Montero on 01-11-2025 Platelet mean volume (Bld) [Entitic vol] 10.1 fL Normal 6.2-12.0 [facility] Comment on above: Performed By: #### L 3890.6006, L100.0100, L501.0250, L509.8002 #### [facility] [address] [place], [address] Monocyte percentageOrdered B y: Butch Falcon on 01-11-2025 Monocytes/100 WBC (Bld) 4.8 % 0-10 [facility] N. gonorrhoeae DNA ENRIQUE+probe Ql (Cervical mucus)on 01-11-2025 C. trachomatis rRNA ENRIQUE+probe Ql (Unsp spec) Negative [facility] N. gonorrhoeae rRNA ENRIQUE+probe Ql (Unsp spec) [facility] Neutrophil percentageOrdered By: Butch Falcon on 01-11-2025 Neutrophils/100 WBC (Bld) 80.1 % High 47-70 [facility] Nitrite Test strip Ql (U)Ord ered By: Mally Maldonado on 01-11-2025 Nitrite Ql (U) Negative Negative [facility] No Panel Informationon 01-11 [employer] Sinus rhythm Electronically Signed On 01-11-2025 22:21:45 EDT by Juma Berrios CV Juma Barnett MD - 01/11/2025 IMPRESSION: Sinus rhythm Electronically Signed On 01-11-2025 22:21:45 EDT by Juma Berrios [facility] [employer] No Panel InformationOrdered By: Juma Berrios on 01-11-2025 P [place]athorne 60 degrees [employer] Work Phone: IA Interval 157 ms [facility] Work Phone: QRS [place] 63 degrees [facility] Work Phone: QRSD Interval 77 ms [facility] Work Phone: QT Interval 365 ms [employer] Work Phone: QTC Interval 458 ms [employer] Work Phone: T Wave [place] 13 degrees [employer] Work Phone: [employer] Work Phone: No Panel InformationOrdered By: Butch Falcon on 01-11-2025 HIV (1&2) Antibody Non-Reactive Nonreactive [facility] Comment on above: Non-ReactiveReactive Repeatedly reactive samples must be confirmed according to CDC recommended confirmatory algorithms. The subresults for either HIVAG or AHIV can be used as an aid in the selection of the confirmation algorithm for reactive samples.Send out specimens with Reactive results to [facility] for confirmation.Order the HIV antibody detection and differentiation: #[id number] Nucleated red blood cell per centageOrdered By: Butch Falcon on 01-11-2025 Nucleated RBC/100 WBC (Bld) [Ratio] 0 % 0-5 [facility] OB Limited With Biometricson 01-11-2025 OB Limited With Biometrics [facility] Imaging Services [address] [place] [address] OB Limited With Biometrics MR#: [id number] Acct: [id number] Name: LEONOR HAGER Rep #: [id number] : 2000 F 24 From: Allan lockhart MD PCP: Care Physician,No Primary Status: REG CLI Study: OB Limited With Biometrics Date of Exam: 01/11 Exam# [id number] Ordering Dr: Yudith Harper DO PROCEDURE: OB LIMITED WITH BIOMETRICS 01/11/2025 REASON FOR EXAM: PRE-ECLAMPSIA TECHNIQUE: Procedure Code: USOBGROWTH Modality: US Procedure: OB LIMITED WITH BIOMETRICS COMPARISON: None FINDINGS Number: 1 Position: Vertex Placental Position: Posterior and not low-lying. Placental Abnormalities: No evidence of previa. DIMENSIONS: Biparietal Diameter: 7.4 cm: 29 weeks and 4 days: 84 percentile/ Head Circumference: 27.7 cm: 30 weeks and 2 days: 86 percentile/ Abdominal Circumference: 24.8 cm: 29 weeks and 0 days: 74 percentile/ Femur Length: 5.2 cm: 27 weeks and 4 days: 23rd percentile/ ESTIMATED WEIGHT: 1271 g plus/-188 g ESTIMATED WEIGHT PERCENTILE (24+ weeks): 65 ESTIMATED GESTATIONAL AGE: Baseline: 28 weeks and 0 days By Ultrasound: 29 weeks and 2 days ESTIMATED DATE OF DELIVERY: Baseline: April 05, 2024 By Ultrasound: March 27, 2025 BIOPHYSICAL ASSESSMENT: Amniotic Fluid Volume: 5.9 cm Amniotic Fluid Index: 15.5 cm (8-24 cm normal range) Cardiac Motion: 137 beats per minute (average) Trunk and Limb Motion: Present. MATERNAL ANATOMY: Adnexa: Neither maternal ovary is successfully identified. US/OB Limited With Biometrics IMPRESSION: Single live intrauterine gestation with mean gestational age of 29 weeks and 2 days. Reading Location: [facility] CC: Dr. Yudith Vande Velde, DO; No Primary Care Physician Arson And Bomb Investigator: Signed Normal [facility] Sample Taker Operator Office Visit Reporton 01-11-2025 Sample Taker Operator Office Visit Report [facility] [address], [address] [place] [address] OFFICE VISIT Date of Service: 01/11/25 MR#: [id number] Acct: [id number] Name: LEONOR HAGER Rep #: [id number] : 2000 Provider: LOTTIE winters Age/Sex: 24/F [place] [facility] [place]: Signed Intake Vital Signs 11/26/24 09:45 12/23/24 09:25 01/11/25 09:24 Height 5 ft 6 in 5 ft 6 in 5 ft 6 in Weight: 156 lb 2 oz BMI 25.2 BP 144/96 H Intake Visit Reasons: 28wk ob/glucose Chief Complaint: 28 Week OB/Glucose Bolt Labeler Required: No Is patient in pain?: No Allergies latex Allergy (Mild, Verified 01/11/25 09:25) Rash Medications ???Medication ???Instructions ???Recorded ???Confirmed ???Type docosahexaenoic acid 200 mg mg PO supplement 08/13/24 01/11/25 History capsule ( DHA) Last Menstrual Period: 06/29/24 Zika: Zika virus screening: Negative : No PFSH PFSH Medical History History of migraine headaches Family History Father Asthma Mother Blood clot in abdominal vein Hypertension Factor V Leiden Grandmother Breast cancer Grandfather Hypertension Myocardial infarction, Onset Age: 42 and at age 61 Grandfather Myocardial infarction Social History adopted: No household members: spouse current occupational status: student 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 current occupational exposures/hazards: No pets and animals: No history of recent travel: Yes ( - June 2024) out of state: Yes out of country: No sexually active: Yes Smoking Status: Never smoker alcohol intake: never substance use type: does not use well-balanced diet: daily or most days caffeine: Yes Type: coffee eating out: 1-3 times/week during the past year weight has: remained stable what type of physical activity do you participate in: walking frequency: 3-4 times per week duration: 15-30 minutes/day melvina/presybeterian: Uatsdin seatbelt use: always do you feel safe at home: Yes additional social history: : [employer] - [employer]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 History 1 Elective abortions Hx Para 0 Spontaneous abortions Hx # Term Pregnancies Ectopic pregnancies Hx # Pregnancies Multiple births # of living children HPI 28wk ob/glucose Details: LEONOR HAGER is a 24 year old who presents for routine OB visit. OB Visit ZCAK Calculator Estimated Delivery Date Method Current WG Current Estimate 04/05/25 LMP (Certain) 28w 0d Other Estimates 04/03/25 Ultrasound #1 28w 2d Expected Delivery Route/Plan Labor Preferences- CB/BF classes: [] labor support person: [] labor intervention preferences: [] pain management options preferred: [] cut cord/dad catch: [] : [] PP control planned: [] discussed possible routes of delivery and associated risks: [] special requests: [] Specific Issue/Plans Covid status: [] Flu vaccine: [] Tdap vaccine: declines Rhogam: na LARC form signed:yes Problem list reviewed and updated with the most current plan of care details and appropriate orders placed. Relevant counseling for the gestational age provided. Continue routine care and follow up unless otherwise noted in visit notes/problem list details Initial Weight: Not Recorded Date -???-???-???-???-??? -???-???-???-???-??? -???-???- EGA Weight BP Urine Prot -???-???-???-???-??? -???-???-???-???-??? -???-???- Glucose FHR FuHt Pres Dilation -???-???-???-???-??? -???-???-???-???-??? -???-???- Effaced St Visit Note 08/27/24 -???-???-???-???-??? -???-???-???-???-??? -???-???- 8w 3d 130 lb 6 oz 126/75 -???-???-???-???-??? -???-???-???-???-??? -???-???- 161 -???-???-???-???-??? -???-???-???-???-??? -???-???- JV- CRL is c onsistent with LMP. Desires NIPT. 09/27/24 -???-???-???-???-??? -???-???-???-???-??? -???-???- 12w 6d 134 lb 2 oz 119/86 Negative -???-???-???-???-??? -???-???-???-???-??? -???-???- Negative 168 -???-???-???-???-??? -???-???-???-???-??? -???-???- -No VB. Na usea improving. Br US to confirm FHT. PN labs and NIPT today 11/26/24 -???-???-???-???-??? -???-???-???-???-??? -???-???- 21w 3d 146 lb 3 oz 136/86 Negative -???-???-???-???-??? -???-???-???-???-??? -???-???- Negative 150 -???-???-???-???-??? -???-???-???-???-??? -???-???- SM- no vb lo f good fm no regular ctx nl anatomy 12/23/24 -???-???-???-???-??? -???-???-???-???-??? -???-???- 25w 2d 151 lb 8 oz 132/87 Negative -???-???-???-???-??? -???-???-???-???-??? -???-???- Negative 155 25 -???-???-???-???-??? -???-???-???-???-??? -???-???- KW- no vb/cr amping. good fm. glu (more content not included)... Normal [facility] Platelet countOrdered By: Leonard Montero on 01-11-2025 Platelets (Bld) [#/Vol] 347 10*3/uL Normal 150-450 [facility] Comment on above: Performed By: #### L 3890.6006, L100.0100, L501.0250, L509.8002 #### [facility] [address] [place] [address], [address] Potassium measurement (mass/ volume)Ordered By: Butch Falcon on 01-11-2025 Potassium (Unsp spec) [Mass/Vol] 3.5 mmol/L 3.3-5.1 [facility] Protein Test strip Ql (U)Ord ered By: Mally Maldonado on 01-11-2025 Protein Ql (U) Negative Negative [facility] Protein+Creatinine Ratio,Uri neon 01-11-2025 PROT:CRE RATIO 230 mg/g CRE High 0-200 [facility] Comment on above: Performed By: #### L 3890.6006, L100.0100, L501.0250, L509.8002 #### [facility] [address] [place], [address] Protein (U) [Mass/Vol] 13.9 mg/dL High 0.0-12.0 [facility] Comment on above: Performed By: #### L 3890.6006, L100.0100, L501.0250, L509.8002 #### [facility] [address] [place], [address] UR CREAT 60.40 mg/dL Normal 28.00-217.00 [facility] Comment on above: Performed By: #### L 3890.6006, L100.0100, L501.0250, L509.8002 #### [facility] [address] [place], [address] PROT:CRE RATIO 226 mg/g CRE High 0-200 [facility] Comment on above: Performed By: #### L 500.4050, L501.0900 #### [facility] [address] [place], [address] Protein (U) [Mass/Vol] 30.0 mg/dL High 0.0-12.0 [facility] Comment on above: Performed By: #### L 500.4050, L501.0900 #### [facility] [address] [place], [address] UR CREAT 133.00 mg/dL Normal 28.00-217.00 [facility] Comment on above: Performed By: #### L 500.4050, L501.0900 #### [facility] [address] [place], [address] Protein, Urine 24HRon 2024 24hr UR PROTEIN Normal <150 MG/24HR [facility] Comment on above: Order Comment: 24 HO UR URINE Result Comment: NOT COLLECTED Performed By: #### L 500.4050, L501.0900 #### [facility] [address] [place], [address] Protein Ql (U) Normal <11.9 [facility] Comment on above: Order Comment: 24 HO UR URINE Result Comment: NOT COLLECTED Performed By: #### L 500.4050, L501.0900 #### [facility] [address] [place], [address] UR COLLECT TIME Normal 24.0 [facility] Comment on above: Order Comment: 24 HO UR URINE Result Comment: NOT COLLECTED Performed By: #### L 500.4050, L501.0900 #### [facility] [address] [place], [address] UR TOTAL VOLUME Normal [facility] Comment on above: Order Comment: 24 HO UR URINE Result Comment: NOT COLLECTED Performed By: #### L 500.4050, L501.0900 #### [facility] [address] [place], [address] Random urine creatinine mariza urement (mass/volume)Ordered By: Yudith Montero on 01-11-2025 Creatinine Unsp time (U) [Mass/Vol] 60.40 mg/dL 28.00-217.00 [facility] Serum Creatinine AND GFRon 0 01-11-2025 Creatinine [Mass/Vol] 0.41 mg/dL Low 0.70-1.20 [facility] Comment on above: Performed By: #### L 3890.6006, L100.0100, L501.0250, L509.8002 #### [facility] [address] [place], [address] ECRCL 198.07 ml/min Normal 50-250 [facility] Comment on above: Performed By: #### L 3890.6006, L100.0100, L501.0250, L509.8002 #### [facility] [address] [place], [address] GFR/1.73 sq M.predicted among non-blacks MDRD (S/P/Bld) [Vol rate/Area] 141 mL/min/{1.73_m2} Normal >60 [facility] Comment on above: Result Comment: mL/m in/1.73m2 CKD-EPI Creatinine Equation (2020) Performed By: #### L 3890.6006, L100.0100, L501.0250, L509.8002 #### [facility] [address] [place], [address] Serum creatinine measurement (mass/volume)Ordered By: Yudith Montero on 01-11-2025 Creatinine [Mass/Vol] 0.41 mg/dL Low 0.70-1.20 [facility] Serum globulin measurementOr dered By: Butch Falcon on 01-11-2025 Globulin (S) [Mass/Vol] 3.3 g/dL 2.2-4.2 [facility] Serum glucose measurement (m ass/volume)Ordered By: Butch Falcon on 01-11-2025 Glucose [Mass/Vol] 86 mg/dL 70-99 [facility] Serum or plasma alanine villaseñor otransferase (ALT) measurementOrdered By: Yudith Montero on 01-11-2025 ALT [Catalytic activity/Vol] 9 U/L <35 [facility] Serum or plasma albumin mariza urement (mass/volume)Ordered By: Butch Falcon on 01-11-2025 Albumin [Mass/Vol] 3.8 g/dL 3.5-5.0 [facility] Serum or plasma albumin/glob ulin mass ratioOrdered By: Butch Falcon on 01-11-2025 Albumin/Globulin [Mass ratio] 1.1 {ratio} 0.9-2.4 [facility] Serum or plasma alkaline vicky sphatase measurementOrdered By: Butch Falcon on 01-11-2025 ALP [Catalytic activity/Vol] 102 U/L 35-104 [facility] Serum or plasma calcium mariza urement (mass/volume)Ordered By: Butch Falcon on 01-11-2025 Calcium [Mass/Vol] 9.0 mg/dL 7.6-11.0 [facility] Serum or plasma urea nitroge n measurement (mass/volume)Ordered By: Butch Falcon on 01-11-2025 Urea nitrogen [Mass/Vol] 7 mg/dL 4-19 [facility] Serum or plasma uric acid me asurement (mass/volume)Ordered By: Yudith Montero on 01-11-2025 Urate [Mass/Vol] 3.2 mg/dL 2.6-6.0 [facility] Comment on above: The drugs N-Acetylcy steine and Metamizole may falsely depress this assay. Sodium levelOrdered By: Aren Falcon on 01-11-2025 Sodium [Moles/Vol] 137 mmol/L 133-145 [facility] Syphilis Antibodieson 2024 Syphilis Abs Non-Reactive Normal Nonreactive [facility] Comment on above: Performed By: #### L 3890.6006, L100.0100, L501.0250, L509.8002 #### [facility] [address] [place], [place], [address] T. vaginalis DNA ENRIQUE+probe Q l (Genital specimen)on 01-11-2025 Interpretation and review of laboratory results Normal [facility] Trichomonas vaginalis Not detected Not Detected [facility] Methodology: real-time PCR A negative result does not completely rule out infection with T. vaginalis. Results should be interpreted in conjunction with other clinical data. This test has not been validated for use with self-collected vaginal swab specimens from patients. This test is intended for medical purposes only and is not intended for the evaluation of suspected sexual abuse or for other forensic purposes. [facility] TRICHOMONAS VAGINALIS PCRon 01-11-2025 TRICHOMONAS VAGINALIS PCR TRICHOMONAS VAGINALIS PCR Reference Not Detected Not Detected ORDER COMMENTS: Methodology: real-time PCR A negative result does not completely rule out infection with T. vaginalis. Results should be interpreted in conjunction with other clinical data. This test has not been validated for use with self-collected vaginal swab specimens from patients. This test is intended for medical purposes only and is not intended for the evaluation of suspected sexual abuse or for other forensic purposes. Normal [facility] Comment on above: Performed By: #### L [id number], [id number] #### Boatbuilder Wood: QUEENIE CASTRO ([id number]) [facility] ([facility]) [address] [place] [address] Total proteinOrdered By: Maddie Falcon on 01-11-2025 Protein [Mass/Vol] 7.1 g/dL 5.9-8.4 [facility] URINE CULTUREon 01-11-2025 Bacteria identified Cx Nom (U) URINE CULTURE Reference Normal urogenital dano present [ S = SUSCEPTIBLE R = RESISTANT I = INTERMEDIATE S-DD = Susceptible-dose dependent NS = Non-susceptible NO = No Interpretation ] Normal [facility] Comment on above: Performed By: #### L AB239 ####Boatbuilder Wood: QUEENIE CASTRO ([id number])[facility] ([facility])[address] [place] [address] Uric Acidon 01-11-2025 URIC 3.2 mg/dL Normal 2.6-6.0 [facility] Comment on above: Result Comment: The drugs N-Acetylcysteine and Metamizole may falsely depress this assay. Performed By: #### L 3890.6006, L100.0100, L501.0250, L509.8002 #### [facility] [address] [place], [place], [address] Urinalysis, Routine (Dipstic k)on 01-11-2025 KETONE UR 150 mg/dl Abnormal Negative [facility] Comment on above: Order Comment: KATHARINE MURRELL TO SPECIFY Result Comment: CRIT ICAL VALUE *H CRITICAL VALUE CALLED TO WING KEBEDE 01/11/25 1735 Tracee March. RESULTS READ BACK BY SAME. Performed By: #### L 400.2010 ####[facility] [address] [place], [place], [address] BILIRUBIN URINE Negative Normal Negative [facility] Comment on above: Order Comment: KATHARINE GUPTAOR TO SPECIFY Performed By: #### L 400.2010 ####[facility] [address] [place], [place], [address] Clarity (U) Cloudy Normal Clear [facility] Comment on above: Order Comment: COLLE CTOR TO SPECIFY Performed By: #### L 400.2010 ####[facility] [address] [place], [address] Color (U) Yellow Normal Yellow [facility] Comment on above: Order Comment: COLLE CTOR TO SPECIFY Performed By: #### L 400.2010 ####[facility] [address] [place], [address] GLUCOSE, UR Normal Normal Normal [facility] Comment on above: Order Comment: COLLE CTOR TO SPECIFY Performed By: #### L 400.2010 ####[facility] [address] [place], [address] LEUK ESTERASE Negative Normal Negative [facility] Comment on above: Order Comment: COLLE CTOR TO SPECIFY Performed By: #### L 400.2010 ####[facility] [address] [place], [address] Nitrite Ql (U) Negative Normal Negative [facility] Comment on above: Order Comment: COLLE CTOR TO SPECIFY Performed By: #### L 400.2010 ####[facility] [address] [place], [address] OCCULT BLOOD-UR Negative Normal Negative [facility] Comment on above: Order Comment: COLLE CTOR TO SPECIFY Performed By: #### L 400.2010 ####[facility] [address] [place], [address] pH UR 6.0 Normal 5.0 - 8.0 [facility] Comment on above: Order Comment: COLLE CTOR TO SPECIFY Performed By: #### L 400.2010 ####[facility] [address] [place], [address] PROT DIPSTX Negative Normal Negative [facility] Comment on above: Order Comment: COLLE CTOR TO SPECIFY Performed By: #### L 400.2010 ####[facility] [address] [place], [place], [address] SP.GR. DIPSTX 1.025 Normal 1.002-1.030 [facility] Comment on above: Order Comment: KATHARINE CTOR TO SPECIFY Performed By: #### L 400.2010 ####[facility] [address] [place], [address] UROBILI Normal Normal Normal [facility] Comment on above: Order Comment: KATHARINE CTOR TO SPECIFY Performed By: #### L 400.2010 ####[facility] [address] [place], [place], [address] Urine clarityOrdered By: Duy Maldonado on 01-11-2025 Clarity (U) Cloudy Clear [facility] Urine color determinationOrd ered By: Mally Maldonado on 01-11-2025 Color (U) Yellow Yellow [facility] Urine cultureOrdered By: Duy Maldonado on 01-11-2025 Bacteria identified Cx Nom (U) Positive Abnormal [facility] Bacteria identified Cx Nom (U) Positive Abnormal [facility] Urine glucose detectionOrder ed By: Mally Maldonado on 01-11-2025 Glucose Ql (U) Normal mg/dl Normal [facility] Urine leukocyte esterase det ection by dipstickOrdered By: Mally Maldonado on 01-11-2025 Leukocyte esterase Test strip Ql (U) Negative Negative [facility] Urine pHOrdered By: Mally Ford llstormy on 01-11-2025 pH (U) 6.0 [pH] 5.0 - 8.0 [facility] Urine protein measurement (m ass/volume)Ordered By: Yudith Motnero on 01-11-2025 Protein (U) [Mass/Vol] 13.9 mg/dL High 0.0-12.0 [facility] Urine protein/creatinine mas s ratioOrdered By: Yudith Montero on 01-11-2025 Protein/Creatinine (U) [Mass ratio] 230 mg/g CRE High 0-200 [facility] Urine specific gravity measu rementOrdered By: Mally Maldonado on 01-11-2025 Specific gravity (U) [Rel density] 1.025 1.002-1.030 [facility] Urine urobilinogen measureme ntOrdered By: Mally Maldonado on 01-11-2025 Urobilinogen Ql (U) Normal mg/dl Normal [facility] Vital signsOrdered By: Jassi Berrios on 01-11-2025 Heart rate 94 /min bpm [facility] [employer] Work Phone: White blood cell (WBC) count Ordered By: Yudith Montero on 01-11-2025 WBC (Bld) [#/Vol] 14.1 10*3/uL High 4.4-11.0 [facility] Comment on above: Performed By: #### L 3890.6006, L100.0100, L501.0250, L509.8002 #### [facility] [address] [place], [place], [address] Laboratory - Chemistry and C hemistry - challengeOrdered By: Mally Maldonado on 12-23-2024 Glucose Ql (U) Negative [facility] - UrinalysisOrder ed By: Mally Maldonado on 12-23-2024 Protein Ql (U) Negative [facility] Sample Taker Operator Office Visit Reporton 12-23-2024 Sample Taker Operator Office Visit Report [facility]'[address], [address] [place] [address] OFFICE VISIT Date of Service: 12/23/24 MR#: [id number] Acct: [id number] Name: LEONOR HAGER Rep #: [id number] : 2000 Provider: UVALDO Medeirso ams Age/Sex: 24/F [place] [facility] [place]: Signed Intake Vital Signs 11/26/24 09:45 12/16/24 12:15 12/23/24 09:25 Height 5 ft 6 in 5 ft 6 in 5 ft 6 in Weight: 151 lb 8 oz BMI 24.4 BP 132/87 H Intake Visit Reasons: 25wk ob Chief Complaint: 25wk ob Bolt Labeler Required: No Is patient in pain?: No Allergies latex Allergy (Mild, Verified 12/23/24 09:26) Rash Medications ???Medication ???Instructions ???Recorded ???Confirmed ???Type docosahexaenoic acid 200 mg mg PO supplement 08/13/24 12/23/24 History capsule ( DHA) Last Menstrual Period: 06/29/24 : No PFSH PFSH Medical History History of migraine headaches Family History Father Asthma Mother Blood clot in abdominal vein Hypertension Factor V Leiden Grandmother Breast cancer Grandfather Hypertension Myocardial infarction, Onset Age: 42 and at age 61 Grandfather Myocardial infarction Social History adopted: No household members: spouse current occupational status: student 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 current occupational exposures/hazards: No pets and animals: No history of recent travel: Yes ( - June 2024) out of state: Yes out of country: No sexually active: Yes Smoking Status: Never smoker alcohol intake: never substance use type: does not use well-balanced diet: daily or most days caffeine: Yes Type: coffee eating out: 1-3 times/week during the past year weight has: remained stable what type of physical activity do you participate in: walking frequency: 3-4 times per week duration: 15-30 minutes/day melvina/presybeterian: Uatsdin seatbelt use: always do you feel safe at home: Yes additional social history: : [employer] - [employer]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 OB Visit ZACK Calculator Estimated Delivery Date Method Current WG Current Estimate 04/05/25 LMP (Certain) 25w 2d Other Estimates 04/03/25 Ultrasound #1 25w 4d Expected Delivery Route/Plan Labor Preferences- CB/BF classes: [] labor support person: [] labor intervention preferences: [] pain management options preferred: [] cut cord/dad catch: [] : [] PP control planned: [] discussed possible routes of delivery and associated risks: [] special requests: [] Specific Issue/Plans Covid status: [] Flu vaccine: [] Tdap vaccine: [] Rhogam: [] LARC form signed: [] Problem list reviewed and updated with the most current plan of care details and appropriate orders placed. Relevant counseling for the gestational age provided. Continue routine care and follow up unless otherwise noted in visit notes/problem list details Initial Weight: Not Recorded Date -???-???-???-???-??? -???-???-???-???-??? -???-???- EGA Weight BP Urine Prot -???-???-???-???-??? -???-???-???-???-??? -???-???- Glucose FHR FuHt Pres Dilation -???-???-???-???-??? -???-???-???-???-??? -???-???- Effaced St Visit Note 08/27/24 -???-???-???-???-??? -???-???-???-???-??? -???-???- 8w 3d 130 lb 6 oz 126/75 -???-???-???-???-??? -???-???-???-???-??? -???-???- 161 -???-???-???-???-??? -???-???-???-???-??? -???-???- JV- CRL is c onsistent with LMP. Desires NIPT. 09/27/24 -???-???-???-???-??? -???-???-???-???-??? -???-???- 12w 6d 134 lb 2 oz 119/86 Negative -???-???-???-???-??? -???-???-???-???-??? -???-???- Negative 168 -???-???-???-???-??? -???-???-???-???-??? -???-???- MH-No VB. Na usea improving. Br US to confirm FHT. PN labs and NIPT today 11/26/24 -???-???-???-???-??? -???-???-???-???-??? -???-???- 21w 3d 146 lb 3 oz 136/86 Negative -???-???-???-???-??? -???-???-???-???-??? -???-???- Negative 150 -???-???-???-???-??? -???-???-???-???-??? -???-???- SM- no vb lo f good fm no regular ctx nl anatomy 12/23/24 -???-???-???-???-??? -???-???-???-???-??? -???-???- 25w 2d 151 lb 8 oz 132/87 Negative -???-???-???-???-??? -???-???-???-???-??? -???-???- Negative 155 25 -???-???-???-???-??? -???-???-???-???-??? -???-???- KW- no vb/cr amping. good fm. glucose next visit. ACOG First Trimester First Trimester: Discussed (more content not included)... Normal [facility] AST(SGOT)on 12-16-2024 AST [Catalytic activity/Vol] 15 U/L Normal <=31 [facility] Comment on above: Performed By: #### L 3890.6006, L100.0100, L501.0250, L509.8002 #### [facility] [address] [place], [address] Alanine Aminotransferas (SGP T)on 12-16-2024 ALT [Catalytic activity/Vol] 9 U/L Normal <=34 [facility] Comment on above: Performed By: #### L 3890.6006, L100.0100, L501.0250, L509.8002 #### [facility] [address] [place], [address] CBC-Complete Blood Cnt No Di ffon 12-16-2024 Erythrocyte distribution width (RBC) [Ratio] 12.6 % Normal 11.6-14.6 [facility] Comment on above: Performed By: #### L 3890.6006, L100.0100, L501.0250, L509.8002 #### [facility] [address] [place], [address] Hematocrit (Bld) [Volume fraction] 30.8 % Low 37-47 [facility] Comment on above: Performed By: #### L 3890.6006, L100.0100, L501.0250, L509.8002 #### [facility] [address] [place], [address] Hemoglobin (Bld) [Mass/Vol] 10.6 g/dL Low 12.0-15.0 [facility] Comment on above: Performed By: #### L 3890.6006, L100.0100, L501.0250, L509.8002 #### [facility] [address] [place], [address] MCH (RBC) [Entitic mass] 30.1 pg Normal 27.0-32.0 [facility] Comment on above: Performed By: #### L 3890.6006, L100.0100, L501.0250, L509.8002 #### [facility] [address] [place], [address] MCHC (RBC) [Mass/Vol] 34.4 g/dL Normal 32-36 [facility] Comment on above: Performed By: #### L 3890.6006, L100.0100, L501.0250, L509.8002 #### [facility] [address] [place], [address] MCV (RBC) [Entitic vol] 87.5 fL Normal 81-99 [facility] Comment on above: Performed By: #### L 3890.6006, L100.0100, L501.0250, L509.8002 #### [facility] [address] [place], [address] Platelet mean volume (Bld) [Entitic vol] 9.4 fL Normal 6.2-12.0 [facility] Comment on above: Performed By: #### L 3890.6006, L100.0100, L501.0250, L509.8002 #### [facility] [address] [place], [address] Platelets (Bld) [#/Vol] 316 10*3/uL Normal 150-450 [facility] Comment on above: Performed By: #### L 3890.6006, L100.0100, L501.0250, L509.8002 #### [facility] [address] [place], [address] RBC (Bld) [#/Vol] 3.52 10*6/uL Low 4.2-5.4 [facility] Comment on above: Performed By: #### L 3890.6006, L100.0100, L501.0250, L509.8002 #### [facility] [address] [place], [address] RDW SD 40.1 fl Normal 35.1-43.9 [facility] Comment on above: Performed By: #### L 3890.6006, L100.0100, L501.0250, L509.8002 #### [facility] [address] [place], [address] WBC (Bld) [#/Vol] 11.6 10*3/uL High 4.4-11.0 [facility] Comment on above: Performed By: #### L 3890.6006, L100.0100, L501.0250, L509.8002 #### [facility] [address] [place], [address] Erythrocyte distribution wid th ratioOrdered By: Catie Krishnan on 12-16-2024 Erythrocyte distribution width (RBC) [Ratio] 12.6 % 11.6-14.6 [facility] Erythrocyte distribution wid th standard deviationOrdered By: Catie Krishnan on 12-16-2024 Erythrocyte distribution width (RBC) [Ratio] 40.1 fl 35.1-43.9 [facility] Glomerular filtration rate ( GFR) estimation/1.73 sq m using serum, plasma, or whole bOrdered By: Catie Krishnan on 12-16-2024 GFR/1.73 sq M.predicted among non-blacks MDRD (S/P/Bld) [Vol rate/Area] 136 mL/min/{1.73_m2} >60 [facility] Comment on above: mL/min/1.73m2 CKD-EP I Creatinine Equation (2020) Hematocrit Auto (Bld) [Volum e fraction]Ordered By: Catie Krishnan on 12-16-2024 Hematocrit (Bld) [Volume fraction] 30.8 % Low 37-47 [facility] Hemoglobin measurementOrdere d By: Catie Krishnan on 12-16-2024 Hemoglobin (Bld) [Mass/Vol] 10.6 g/dL Low 12.0-15.0 [facility] - Chemistry and C hemistry - challengeOrdered By: Catie Krishnan on 12-16-2024 AST [Catalytic activity/Vol] 15 U/L <32 [facility] MCV (mean corpuscular volume ) determinationOrdered By: Catie Krishnan on 12-16-2024 MCV (RBC) [Entitic vol] 87.5 fL 81-99 [facility] Mean corpuscular hemoglobin (MCH) determinationOrdered By: Catie Krishnan on 12-16-2024 MCH (RBC) [Entitic mass] 30.1 pg 27.0-32.0 [facility] Mean corpuscular hemoglobin concentration (MCHC) determinationOrdered By: Catie Krishnan on 12-16-2024 MCHC (RBC) [Mass/Vol] 34.4 g/dL 32-36 [facility] Mean platelet volume determi nationOrdered By: Catie Krishnan on 12-16-2024 Platelet mean volume (Bld) [Entitic vol] 9.4 fL 6.2-12.0 [facility] OB Triage Progress Noteon OB Triage Progress Note [facility] Medical Records Department [address] [place] [address] OB Triage Progress Note 12/16/24 1344 MR#: [id number] Acct: [id number] Name: LEONOR HAGER Rep #: [id number] : 2000 24 From: Catie Krishnan MD PCP: Care Physician,No Primary Status:DEP CLI Y DOS: Location: [facility] Progress Notes Date of Service: 12/17/24 Progress Note: Patient presents for triage evaluation secondary to elevated bloodpressure FHT: 140 Moderate variability reactive no decelerations category I tracing [place]: no regular Contractions Assessment and plan: blood pressures normal 24 weeks labs WNL reviewed precautions reassuring fht, reassuring maternal and status patient discharged to home to follow-up as scheduled. See problem list details for additional plan information. Laboratory Studies: Laboratory Tests 12/16/24 Range/Units 12:30 WBC 11.6 H (4.4-11.0) K/mm3 RBC 3.52 L (4.2-5.4) M/mm3 Hgb 10.6 L (12.0-15.0) g/dL Hct 30.8 L (37-47) % MCV 87.5 (81-99) fL MCH 30.1 (27.0-32.0) pg MCHC 34.4 (32-36) g/dL RDW Std Deviation 40.1 (35.1-43.9) fl RDW Coeff of Kelsie 12.6 (11.6-14.6) % Plt Count 316 (150-450) K/mm3 MPV 9.4 (6.2-12.0) fl Creatinine 0.47 L (0.70-1.20) mg/dL Estim Creat Clear Calc 172.78 (50-250) ml/min Est GFR (MDRD) Non-Af 136 (>60) Uric Acid 3.5 (2.6-6.0) mg/dL AST 15 (<=31) U/L ALT 9 (<=34) U/L Charges/Coding Procedures Urinary/Genital 52xxx-59xxx: No Charge 12/17/24 0835 Date Catie Krishnan MD Cosigner Signature (if applicable): Date _ CC: Dr. Catie Krishnan MD; No Primary Care Physician Signed ADDENDUM by Dr. Catie Krishnan MD on 12/17/24 at 0838 Addendum 24 weeks dos 12/16/24 12/17/24 0838 Date Catie Krishnan MD cc: Dr. Catie Krishnan MD; No Primary Care Physician * Signed Normal [facility] Platelet countOrdered By: Amaury Krishnan on 12-16-2024 Platelets (Bld) [#/Vol] 316 10*3/uL 150-450 [facility] Protein+Creatinine Ratio,Uri neon 12-16-2024 PROT:CRE RATIO 233 mg/g CRE High 0-200 [facility] Comment on above: Performed By: #### L 3890.6006, L100.0100, L501.0250, L509.8002 #### [facility] [address] [place], [address] PROTEIN,UR.RAN. < 6.0 Normal 0.0-12.0 [facility] Comment on above: Performed By: #### L 3890.6006, L100.0100, L501.0250, L509.8002 #### [facility] [address] [place], [address] UR CREAT 24.20 mg/dL Low 28.00-217.00 [facility] Comment on above: Performed By: #### L 3890.6006, L100.0100, L501.0250, L509.8002 #### [facility] [address] [place], [address] RBC Auto (Bld) [#/Vol]Ordere d By: Catie Krishnan on 12-16-2024 RBC (Bld) [#/Vol] 3.52 10*6/uL Low 4.2-5.4 [facility] Random urine creatinine mariza urement (mass/volume)Ordered By: Catie Krishnan on 12-16-2024 Creatinine Unsp time (U) [Mass/Vol] 24.20 mg/dL Low 28.00-217.00 [facility] Serum Creatinine AND GFRon 0 12-16-2024 Creatinine [Mass/Vol] 0.47 mg/dL Low 0.70-1.20 [facility] Comment on above: Performed By: #### L 3890.6006, L100.0100, L501.0250, L509.8002 #### [facility] [address] [place], [address] ECRCL 172.78 ml/min Normal 50-250 [facility] Comment on above: Performed By: #### L 3890.6006, L100.0100, L501.0250, L509.8002 #### [facility] [address] [place], [address] GFR/1.73 sq M.predicted among non-blacks MDRD (S/P/Bld) [Vol rate/Area] 136 mL/min/{1.73_m2} Normal >60 [facility] Comment on above: Result Comment: mL/m in/1.73m2 CKD-EPI Creatinine Equation (2020) Performed By: #### L 3890.6006, L100.0100, L501.0250, L509.8002 #### [facility] [address] [place], [address] Serum creatinine measurement (mass/volume)Ordered By: Catie Krishnan on 12-16-2024 Creatinine [Mass/Vol] 0.47 mg/dL Low 0.70-1.20 [facility] Serum or plasma alanine villaseñor otransferase (ALT) measurementOrdered By: Catie Krishnan on 12-16-2024 ALT [Catalytic activity/Vol] 9 U/L <35 [facility] Serum or plasma uric acid me asurement (mass/volume)Ordered By: Catie Krishnan on 12-16-2024 Urate [Mass/Vol] 3.5 mg/dL 2.6-6.0 [facility] Comment on above: The drugs N-Acetylcy steine and Metamizole may falsely depress this assay. Uric Acidon 12-16-2024 URIC 3.5 mg/dL Normal 2.6-6.0 [facility] Comment on above: Result Comment: The drugs N-Acetylcysteine and Metamizole may falsely depress this assay. Performed By: #### L 3890.6006, L100.0100, L501.0250, L509.8002 #### [facility] [address] [place], [address] Urine protein measurement (m ass/volume)Ordered By: Catie Krishnan on 12-16-2024 Protein (U) [Mass/Vol] mg/dL 0.0-12.0 [facility] Urine protein/creatinine mas s ratioOrdered By: Catie Krishnan on 12-16-2024 Protein/Creatinine (U) [Mass ratio] 233 mg/g CRE High 0-200 [facility] White blood cell (WBC) count Ordered By: Catie Krishnan on 12-16-2024 WBC (Bld) [#/Vol] 11.6 10*3/uL High 4.4-11.0 [facility] - Microbiology an d Antimicrobial susceptibilityon 12-11-2024 Rubella virus IgG Ql (S) NR [facility] No Panel Informationon 12-11 [facility] - Chemistry and C hemistry - challengeOrdered By: Catie Krishnan on 11-26-2024 Glucose Ql (U) Negative [facility] - UrinalysisOrder ed By: Catie Krishnan on 11-26-2024 Protein Ql (U) Negative [facility] Sample Taker Operator Office Visit Reporton 11-26-2024 Sample Taker Operator Office Visit Report [facility] [address], [address] [place] [address] OFFICE VISIT Date of Service: 11/26/24 MR#: [id number] Acct: [id number] Name: LEONOR HAGER Rep #: [id number] : 2000 Provider: Dr. Catie osuna MD Age/Sex: 23/F [place] [facility] [place]: Signed Intake Vital Signs 08/27/24 11:24 09/27/24 14:04 11/26/24 09:45 Height 5 ft 6 in 5 ft 6 in 5 ft 6 in Weight: 146 lb 3 oz BMI 23.6 BP 136/86 H Intake Visit Reasons: 21wk ob Bolt Labeler Required: No Is patient in pain?: No Allergies latex Allergy (Mild, Verified 11/26/24 09:43) Rash Medications ???Medication ???Instructions ???Recorded ???Confirmed ???Type docosahexaenoic acid 200 mg mg PO 08/13/24 11/26/24 History capsule ( DHA) Last Menstrual Period: 06/29/24 Zika: Zika virus screening: Negative : No PFSH PFSH Medical History History of migraine headaches Family History Father Asthma Mother Blood clot in abdominal vein Hypertension Factor V Leiden Grandmother Breast cancer Grandfather Hypertension Myocardial infarction, Onset Age: 42 and at age 61 Grandfather Myocardial infarction Social History adopted: No household members: spouse current occupational status: student 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 current occupational exposures/hazards: No pets and animals: No history of recent travel: Yes ( - June 2024) out of state: Yes out of country: No sexually active: Yes Smoking Status: Never smoker alcohol intake: never substance use type: does not use well-balanced diet: daily or most days caffeine: Yes Type: coffee eating out: 1-3 times/week during the past year weight has: remained stable what type of physical activity do you participate in: walking frequency: 3-4 times per week duration: 15-30 minutes/day melvina/presybeterian: Uatsdin seatbelt use: always do you feel safe at home: Yes additional social history: : [employer] - [employer]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 OB Visit ZACK Calculator Estimated Delivery Date Method Current WG Current Estimate 04/05/25 LMP (Certain) 21w 3d Other Estimates 04/03/25 Ultrasound #1 21w 5d Expected Delivery Route/Plan Labor Preferences- CB/BF classes: [] labor support person: [] labor intervention preferences: [] pain management options preferred: [] cut cord/dad catch: [] : [] PP control planned: [] discussed possible routes of delivery and associated risks: [] special requests: [] Specific Issue/Plans Covid status: [] Flu vaccine: [] Tdap vaccine: [] Rhogam: [] LARC form signed: [] Problem list reviewed and updated with the most current plan of care details and appropriate orders placed. Relevant counseling for the gestational age provided. Continue routine care and follow up unless otherwise noted in visit notes/problem list details Initial Weight: Not Recorded Date -???-???-???-???-??? -???-???-???-???-??? -???-???- EGA Weight BP Urine Prot -???-???-???-???-??? -???-???-???-???-??? -???-???- Glucose FHR FuHt Pres Dilation -???-???-???-???-??? -???-???-???-???-??? -???-???- Effaced St Visit Note 08/27/24 -???-???-???-???-??? -???-???-???-???-??? -???-???- 8w 3d 130 lb 6 oz 126/75 -???-???-???-???-??? -???-???-???-???-??? -???-???- 161 -???-???-???-???-??? -???-???-???-???-??? -???-???- JV- CRL is c onsistent with LMP. Desires NIPT. 09/27/24 -???-???-???-???-??? -???-???-???-???-??? -???-???- 12w 6d 134 lb 2 oz 119/86 Negative -???-???-???-???-??? -???-???-???-???-??? -???-???- Negative 168 -???-???-???-???-??? -???-???-???-???-??? -???-???- MH-No VB. Na usea improving. Br US to confirm FHT. PN labs and NIPT today 11/26/24 -???-???-???-???-??? -???-???-???-???-??? -???-???- 21w 3d 146 lb 3 oz 136/86 Negative -???-???-???-???-??? -???-???-???-???-??? -???-???- Negative 150 -???-???-???-???-??? -???-???-???-???-??? -???-???- SM- no vb lo f good fm no regular ctx nl anatomy ACOG First Trimester First Trimester: Discussed Results POC Urinalysis 2 Dip (Clinic) Office Urine Glucose Negative Last Edit by Butch Puga on 11/26/24 09:51 Office Urine Protein Negative Last Edit by Butch Puga on 11/26/24 09:51 Coding Level of Care Code OB Routine Diagnoses (more content not included)... Normal [facility] Absolute lymphocyte countOrd ered By: Yudith Montero on 09-28-2024 Lymphocytes Auto (Unsp spec) [#/Vol] 1.53 10*3/uL 0.83-4.51 [facility] Absolute neutrophil countOrd ered By: Yudith Montero on 09-28-2024 Neutrophils (Bld) [#/Vol] 7.6 10*3/uL 2.0-7.7 [facility] Anion gap in Serum or Plasma Ordered By: Yudith Montero on 09-28-2024 Anion gap [Moles/Vol] 13 mmol/L 5-15 [facility] Automated lymphocyte count a s percentage of total leukocytesOrdered By: Yudith Montero on 09-28-2024 Lymphocytes/100 WBC Auto (Unsp spec) 15.5 % Low 19-41 [facility] BUN/creatinine ratioOrdered By: Yudith Kylah on 09-28-2024 Urea nitrogen/Creatinine [Mass ratio] 11.0 mg/mg 10-20 [facility] Basophil percentageOrdered B y: Yudith Kylah on 09-28-2024 Basophils/100 WBC (Bld) 0.4 % 0-1 [facility] Bilirubin, totalOrdered By: Yudith Montero on 09-28-2024 Bilirubin [Mass/Vol] 0.83 mg/dL 0.00-1.30 [facility] CBC W/Diff, Automatedon Absolute Lymph 1.53 X10 3/uL Normal 0.83-4.51 [facility] Comment on above: Performed By: #### L 3890.6006, L100.0100, L501.0250, L509.8002 #### [facility] [address] [place], [address] Absolute Neut 7.6 X10 3/uL Normal 2.0-7.7 [facility] Comment on above: Performed By: #### L 3890.6006, L100.0100, L501.0250, L509.8002 #### [facility] [address] [place], [address] Basophils/100 WBC (Bld) 0.4 % Normal 0-1 [facility] Comment on above: Performed By: #### L 3890.6006, L100.0100, L501.0250, L509.8002 #### [facility] [address] [place], [address] Eosinophils/100 WBC (Bld) 1.5 % Normal 0-5 [facility] Comment on above: Performed By: #### L 3890.6006, L100.0100, L501.0250, L509.8002 #### [facility] [address] [place], [address] Erythrocyte distribution width (RBC) [Ratio] 13.3 % Normal 11.6-14.6 [facility] Comment on above: Performed By: #### L 3890.6006, L100.0100, L501.0250, L509.8002 #### [facility] [address] [place], [address] Hematocrit (Bld) [Volume fraction] 37.6 % Normal 37-47 [facility] Comment on above: Performed By: #### L 3890.6006, L100.0100, L501.0250, L509.8002 #### [facility] [address] [place], [address] Hemoglobin (Bld) [Mass/Vol] 12.5 g/dL Normal 12.0-15.0 [facility] Comment on above: Performed By: #### L 3890.6006, L100.0100, L501.0250, L509.8002 #### [facility] [address] [place], [address] IG% 0.800 Normal 0.0-0.9 [facility] Comment on above: Result Comment: IG% - Immature Granulocytes (promyelocytes, myelocytes and metamyelocytes) > 1% indicates that a LEFT SHIFT is Present. Performed By: #### L 3890.6006, L100.0100, L501.0250, L509.8002 #### [facility] [address] [place], [address] Lymphocytes/100 WBC (Bld) 15.5 % Low 19-41 [facility] Comment on above: Performed By: #### L 3890.6006, L100.0100, L501.0250, L509.8002 #### [facility] [address] [place], [address] MCH (RBC) [Entitic mass] 28.7 pg Normal 27.0-32.0 [facility] Comment on above: Performed By: #### L 3890.6006, L100.0100, L501.0250, L509.8002 #### [facility] [address] [place], [address] MCHC (RBC) [Mass/Vol] 33.2 g/dL Normal 32-36 [facility] Comment on above: Performed By: #### L 3890.6006, L100.0100, L501.0250, L509.8002 #### [facility] [address] [place], [address] MCV (RBC) [Entitic vol] 86.4 fL Normal 81-99 [facility] [place] [facility] Comment on above: Performed By: #### L 3890.6006, L100.0100, L501.0250, L509.8002 #### [facility] [address] [place], [address] Monocytes/100 WBC (Bld) 5.0 % Normal 0-10 [facility] Comment on above: Performed By: #### L 3890.6006, L100.0100, L501.0250, L509.8002 #### [facility] [address] [place], [address] Neutrophils/100 WBC (Bld) 76.8 % High 47-70 [facility] Comment on above: Performed By: #### L 3890.6006, L100.0100, L501.0250, L509.8002 #### [facility] [address] [place], [address] Nucleated RBC (Bld) [#/Vol] 0 10*3/uL Normal 0-5 [facility] Comment on above: Performed By: #### L 3890.6006, L100.0100, L501.0250, L509.8002 #### [facility] [address] [place], [address] Platelet mean volume (Bld) [Entitic vol] 9.8 fL Normal 6.2-12.0 [facility] Comment on above: Performed By: #### L 3890.6006, L100.0100, L501.0250, L509.8002 #### [facility] [address] [place], [address] Platelets (Bld) [#/Vol] 305 10*3/uL Normal 150-450 [facility] Comment on above: Performed By: #### L 3890.6006, L100.0100, L501.0250, L509.8002 #### [facility] [address] [place], [address] RBC (Bld) [#/Vol] 4.35 10*6/uL Normal 4.2-5.4 [facility] Comment on above: Performed By: #### L 3890.6006, L100.0100, L501.0250, L509.8002 #### [facility] [address] [place], [address] RDW SD 41.6 fl Normal 35.1-43.9 [facility] Comment on above: Performed By: #### L 3890.6006, L100.0100, L501.0250, L509.8002 #### [facility] [address] [place], [address] WBC (Bld) [#/Vol] 9.9 10*3/uL Normal 4.4-11.0 [facility] Comment on above: Performed By: #### L 3890.6006, L100.0100, L501.0250, L509.8002 #### [facility] [address] [place], [address] Carbon dioxide, total [Moles /volume] in Central venous bloodOrdered By: Yudith Montero on 09-28-2024 CO2 [Moles/Vol] 20.2 mmol/L Low 21.0-32.0 [facility] Chloride assayOrdered By: Leonard duboisnegin Kylah on 09-28-2024 Chloride [Moles/Vol] 103 mmol/L 98-108 [facility] Comprehensive Metabolic Prof ilon 09-28-2024 Albumin [Mass/Vol] 4.3 g/dL Normal 3.5-5.0 [facility] Comment on above: Performed By: #### L 3890.6006, L100.0100, L501.0250, L509.8002 #### [facility] [address] [place], [address] Albumin/Globulin [Mass ratio] 1.4 {ratio} Normal 0.9-2.4 [facility] Comment on above: Performed By: #### L 3890.6006, L100.0100, L501.0250, L509.8002 #### [facility] [address] [place], [address] ALK PHOS 48 U/L Normal 35-104 [facility] Comment on above: Performed By: #### L 3890.6006, L100.0100, L501.0250, L509.8002 #### [facility] [address] [place], [address] ALT [Catalytic activity/Vol] 9 U/L Normal <=34 [facility] Comment on above: Performed By: #### L 3890.6006, L100.0100, L501.0250, L509.8002 #### [facility] [address] [place], [address] AST [Catalytic activity/Vol] 14 U/L Normal <=31 [facility] Comment on above: Performed By: #### L 3890.6006, L100.0100, L501.0250, L509.8002 #### [facility] [address] [place], [address] Bilirubin [Mass/Vol] 0.83 mg/dL Normal 0.00-1.30 [facility] Comment on above: Performed By: #### L 3890.6006, L100.0100, L501.0250, L509.8002 #### [facility] [address] [place], [address] BUN/CRE 11.0 RATIO Normal 10-20 [facility] Comment on above: Performed By: #### L 3890.6006, L100.0100, L501.0250, L509.8002 #### [facility] [address] [place], [address] Calcium [Mass/Vol] 9.2 mg/dL Normal 7.6-11.0 [facility] Comment on above: Performed By: #### L 3890.6006, L100.0100, L501.0250, L509.8002 #### [facility] [address] [place], [address] Chloride [Moles/Vol] 103 mmol/L Normal 98-108 [facility] Comment on above: Performed By: #### L 3890.6006, L100.0100, L501.0250, L509.8002 #### [facility] [address] [place], [address] CO2 [Moles/Vol] 20.2 mmol/L Low 21.0-32.0 [facility] Comment on above: Performed By: #### L 3890.6006, L100.0100, L501.0250, L509.8002 #### [facility] [address] [place], [address] Creatinine [Mass/Vol] 0.51 mg/dL Low 0.70-1.20 [facility] Comment on above: Performed By: #### L 3890.6006, L100.0100, L501.0250, L509.8002 #### [facility] [address] [place], [address] GAP 13 Normal 5-15 [facility] Comment on above: Performed By: #### L 3890.6006, L100.0100, L501.0250, L509.8002 #### [facility] [address] [place], [address] GFR/1.73 sq M.predicted among non-blacks MDRD (S/P/Bld) [Vol rate/Area] 135 mL/min/{1.73_m2} Normal >60 [facility] Comment on above: Result Comment: mL/m in/1.73m2 CKD-EPI Creatinine Equation (2020) Performed By: #### L 3890.6006, L100.0100, L501.0250, L509.8002 #### [facility] [address] [place], [address] Globulin (S) [Mass/Vol] 3.0 g/dL Normal 2.2-4.2 [facility] Comment on above: Performed By: #### L 3890.6006, L100.0100, L501.0250, L509.8002 #### [facility] [address] [place], [address] Glucose [Mass/Vol] 79 mg/dL Normal 70-99 [facility] Comment on above: Performed By: #### L 3890.6006, L100.0100, L501.0250, L509.8002 #### [facility] [address] [place], [address] Potassium [Moles/Vol] 4.0 mmol/L Normal 3.3-5.1 [facility] Comment on above: Performed By: #### L 3890.6006, L100.0100, L501.0250, L509.8002 #### [facility] [address] [place], [address] Sodium [Moles/Vol] 136 mmol/L Normal 133-145 [facility] Comment on above: Performed By: #### L 3890.6006, L100.0100, L501.0250, L509.8002 #### [facility] [address] [place], [address] T PROT 7.4 g/dL Normal 5.9-8.4 [facility] Comment on above: Performed By: #### L 3890.6006, L100.0100, L501.0250, L509.8002 #### [facility] [address] [place], [address] Urea nitrogen [Mass/Vol] 6 mg/dL Normal 4-19 [facility] Comment on above: Performed By: #### L 3890.6006, L100.0100, L501.0250, L509.8002 #### [facility] [address] [place], [address] Eosinophil percentageOrdered By: Yudtih Montero on 09-28-2024 Eosinophils/100 WBC (Bld) 1.5 % 0-5 [facility] Erythrocyte distribution wid th ratioOrdered By: Yudith Montero on 09-28-2024 Erythrocyte distribution width (RBC) [Ratio] 13.3 % 11.6-14.6 [facility] Erythrocyte distribution wid th standard deviationOrdered By: Yudith Montero on 09-28-2024 Erythrocyte distribution width (RBC) [Ratio] 41.6 fl 35.1-43.9 [facility] Glomerular filtration rate ( GFR) estimation/1.73 sq m using serum, plasma, or whole bOrdered By: Yudith Montero on 09-28-2024 GFR/1.73 sq M.predicted among non-blacks MDRD (S/P/Bld) [Vol rate/Area] 135 mL/min/{1.73_m2} >60 [facility] Comment on above: mL/min/1.73m2 CKD-EP I Creatinine Equation (2020) HIVon 09-28-2024 HIV Non-Reactive Normal Nonreactive [facility] Comment on above: Result Comment: Non- Reactive Reactive Repeatedly reactive samples must be confirmed according to CDC recommended confirmatory algorithms. The subresults for either HIVAG or AHIV can be used as an aid in the selection of the confirmation algorithm for reactive samples. Send out specimens with Reactive results to [facility] for confirmation. Order the HIV antibody detection and differentiation: lc#[id number] Performed By: #### L 3890.6006, L100.0100, L501.0250, L509.8002 #### [facility] [address] [place], [address] Hematocrit Auto (Bld) [Volum e fraction]Ordered By: Yudith Montero on 09-28-2024 Hematocrit (Bld) [Volume fraction] 37.6 % 37-47 [facility] Hemoglobin measurementOrdere d By: Yudith Montero on 09-28-2024 Hemoglobin (Bld) [Mass/Vol] 12.5 g/dL 12.0-15.0 [facility] Hepatitis C Antibodyon 09-28 Hepatitis C Ab Non-Reactive Normal Nonreactive [facility] Comment on above: Result Comment: Reac tive: Presumptive evidence of antibodies to HCV. Follow CDC recommendations for supplemental testing. Non-Reactive: Antibodies to HCV were not detected; does not exclude the possibility of exposure to HCV Reactive Results are presumptive evidence of antibodies to HCV. Follow CDC recommendations for supplemental testing. Order confirmation testing: HCV Quant by PCR testing - HCVPCR #[id number] Non Reactive: < 0.8 Equivocal: >/= 0.8 to < 1.0 Reactive: >/= 1.0 The CDC requires that a reactive/equivocal HCV antibody result be sent out for confirmation. HCV Quant by PCR testing. Performed By: #### L 3890.6006, L100.0100, L501.0250, L509.8002 #### [facility] [address] [place], [address] Immature granulocytes/100 WB C Auto (Bld)Ordered By: Yudith Montero on 09-28-2024 Immature granulocytes/100 WBC (Bld) 0.800 % 0.0-0.9 [facility] Comment on above: IG% - Immature Granu locytes (promyelocytes, myelocytes and metamyelocytes) > 1% indicates that a LEFT SHIFT is Present. L3890.6102on 09-28-2024 HEP B Surf Ag Non-Reactive Normal Nonreactive [facility] Comment on above: Result Comment: Reac tive: Presumptive evidence of HBV. Repeatedly reactive samples must be confirmed using a neutralization test ([employer] HBsAg Confirmatory Test) Non-Reactive: HBsAg not detected; does not exclude the possibility of exposure to HBV Performed By: #### L 3890.6006, L100.0100, L501.0250, L509.8002 #### [facility] [address] [facility] [place], [place], [address] L509.4006on 09-28-2024 Rubella IgG REAC Normal Nonreactive [facility] Comment on above: Result Comment: Anti body Result: Interpretation Non-Reactive: Non-Immune Reactive: Immune The following results were obtained with the [employer] Rubella IgG assay. Results from assays of other manufacturers cannot be used interchangeably. Performed By: #### L 3890.6006, L100.0100, L501.0250, L509.8002 #### [facility] [address] [place], [place], [address] Laboratory - Chemistry and C hemistry - challengeOrdered By: Yudith Montero on 09-28-2024 AST [Catalytic activity/Vol] 14 U/L <32 [facility] - Microbiology an d Antimicrobial susceptibilityOrdered By: Yudith Montero on 09-28-2024 HBV surface Ag Ql (S) Non-Reactive Nonreactive [facility] Comment on above: Reactive: Presumptiv e evidence of HBV. Repeatedly reactive samples must be confirmed using a neutralization test ([employer] HBsAg Confirmatory Test)Non-Reactive: HBsAg not detected; does not exclude the possibility of exposure to HBV MCV (mean corpuscular volume ) determinationOrdered By: Yudith Montero on 09-28-2024 MCV (RBC) [Entitic vol] 86.4 fL 81-99 [facility] Mean corpuscular hemoglobin (MCH) determinationOrdered By: Yudith Montero on 09-28-2024 MCH (RBC) [Entitic mass] 28.7 pg 27.0-32.0 [facility] Mean corpuscular hemoglobin concentration (MCHC) determinationOrdered By: Yudith Montero on 09-28-2024 MCHC (RBC) [Mass/Vol] 33.2 g/dL 32-36 [facility] Mean platelet volume determi nationOrdered By: Yudith Montero on 09-28-2024 Platelet mean volume (Bld) [Entitic vol] 9.8 fL 6.2-12.0 [facility] Monocyte percentageOrdered B y: Yudith Montero on 09-28-2024 Monocytes/100 WBC (Bld) 5.0 % 0-10 [facility] NATERAon 09-28-2024 MAHENDRA SEE SCANNED REPORT Normal [facility] Comment on above: Performed By: #### L 3890.6006, L100.0100, L501.0250, L509.8002 #### [facility] [address] [place], [address] Neutrophil percentageOrdered By: Yudith Montero on 09-28-2024 Neutrophils/100 WBC (Bld) 76.8 % High 47-70 [facility] No Panel InformationOrdered By: Yudith Montero on 09-28-2024 HIV (1&2) Antibody Non-Reactive Nonreactive [facility] Comment on above: Non-ReactiveReactive Repeatedly reactive samples must be confirmed according to CDC recommended confirmatory algorithms. The subresults for either HIVAG or AHIV can be used as an aid in the selection of the confirmation algorithm for reactive samples.Send out specimens with Reactive results to [facility] for confirmation.Order the HIV antibody detection and differentiation: #[id number] Nucleated red blood cell per centageOrdered By: Yudith Montero on 09-28-2024 Nucleated RBC/100 WBC (Bld) [Ratio] 0 % 0-5 [facility] Platelet countOrdered By: Leonard Montero on 09-28-2024 Platelets (Bld) [#/Vol] 305 10*3/uL 150-450 [facility] Potassium measurement (mass/ volume)Ordered By: Yudith Montero on 09-28-2024 Potassium (Unsp spec) [Mass/Vol] 4.0 mmol/L 3.3-5.1 [facility] RBC Auto (Bld) [#/Vol]Ordere d By: Yudith Montero on 09-28-2024 RBC (Bld) [#/Vol] 4.35 10*6/uL 4.2-5.4 [facility] Serum creatinine measurement (mass/volume)Ordered By: Yudith Montero on 09-28-2024 Creatinine [Mass/Vol] 0.51 mg/dL Low 0.70-1.20 [facility] Serum globulin measurementOr dered By: Yudith Montero on 09-28-2024 Globulin (S) [Mass/Vol] 3.0 g/dL 2.2-4.2 [facility] Serum glucose measurement (m ass/volume)Ordered By: Yudith Montero on 09-28-2024 Glucose [Mass/Vol] 79 mg/dL 70-99 [facility] Serum or plasma alanine villaseñor otransferase (ALT) measurementOrdered By: Yudith Montero on 09-28-2024 ALT [Catalytic activity/Vol] 9 U/L <35 [facility] Serum or plasma albumin mariza urement (mass/volume)Ordered By: Yudith Montero on 09-28-2024 Albumin [Mass/Vol] 4.3 g/dL 3.5-5.0 [facility] Serum or plasma albumin/glob ulin mass ratioOrdered By: Yudith Montero on 09-28-2024 Albumin/Globulin [Mass ratio] 1.4 {ratio} 0.9-2.4 [facility] Serum or plasma alkaline vicky sphatase measurementOrdered By: Yudith Montero on 09-28-2024 ALP [Catalytic activity/Vol] 48 U/L 35-104 [facility] Serum or plasma calcium mariza urement (mass/volume)Ordered By: Yudith Montero on 09-28-2024 Calcium [Mass/Vol] 9.2 mg/dL 7.6-11.0 [facility] Serum or plasma urea nitroge n measurement (mass/volume)Ordered By: Yudith Montero on 09-28-2024 Urea nitrogen [Mass/Vol] 6 mg/dL 4-19 [facility] Sodium levelOrdered By: Rossy Montero on 09-28-2024 Sodium [Moles/Vol] 136 mmol/L 133-145 [facility] Syphilis Antibodieson 2024 Syphilis Abs Non-Reactive Normal Nonreactive [facility] Comment on above: Performed By: #### L 3890.6006, L100.0100, L501.0250, L509.8002 #### [facility] [address] [place], [address] Total proteinOrdered By: Jane Montero on 09-28-2024 Protein [Mass/Vol] 7.4 g/dL 5.9-8.4 [facility] Type AND Screenon 09-28-2024 Ab SCREEN GEL Negative Normal [facility] Comment on above: Order Comment: PN Performed By: #### L 3890.6006, L100.0100, L501.0250, L509.8002 #### [facility] [address] [place], [place], [address] White blood cell (WBC) count Ordered By: Yudith Montero on 09-28-2024 WBC (Bld) [#/Vol] 9.9 10*3/uL 4.4-11.0 [facility] - Chemistry and C hemistry - challengeOrdered By: Butch Falcon on 09-27-2024 Glucose Ql (U) Negative [facility] - UrinalysisOrder ed By: Butch Falcon on 09-27-2024 Protein Ql (U) Negative [facility] Sample Taker Operator Office Visit Reporton 09-27-2024 Sample Taker Operator Office Visit Report [address], [address] [place] [address] OFFICE VISIT Date of Service: 09/27/24 MR#: [id number] Acct: [id number] Name: LEONOR HAGER Rep #: [id number] : 2000 Provider: LOTTIE winters Age/Sex: 23/F Location: [facility] [place] Status: Signed Intake Vital Signs 08/06/24 10:46 08/27/24 11:24 09/27/24 14:04 Height 5 ft 6 in 5 ft 6 in 5 ft 6 in Weight: 134 lb 2 oz BMI 21.6 BP 119/86 H Intake Visit Reasons: 13wk ob Chief Complaint: 13 Week OB Bolt Labeler Required: No Is patient in pain?: No Allergies latex Allergy (Mild, Verified 09/27/24 14:05) Rash Medications ???Medication ???Instructions ???Recorded ???Confirmed ???Type docosahexaenoic acid 200 mg mg PO 08/13/24 09/27/24 History capsule ( DHA) Last Menstrual Period: 06/29/24 Zika: Zika virus screening: Negative : No PFSH PFSH Medical History History of migraine headaches Family History Father Asthma Mother Blood clot in abdominal vein Hypertension Factor V Leiden Grandmother Breast cancer Grandfather Hypertension Myocardial infarction, Onset Age: 42 and at age 61 Grandfather Myocardial infarction Social History adopted: No household members: spouse current occupational status: student 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 current occupational exposures/hazards: No pets and animals: No history of recent travel: Yes ( - June 2024) out of state: Yes out of country: No sexually active: Yes Smoking Status: Never smoker alcohol intake: never substance use type: does not use well-balanced diet: daily or most days caffeine: Yes Type: coffee eating out: 1-3 times/week during the past year weight has: remained stable what type of physical activity do you participate in: walking frequency: 3-4 times per week duration: 15-30 minutes/day melvina/presybeterian: Uatsdin seatbelt use: always do you feel safe at home: Yes additional social history: : Emeterio Banerjee [employer]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 History 1 Elective abortions Hx Para 0 Spontaneous abortions Hx # Term Pregnancies Ectopic pregnancies Hx # Pregnancies Multiple births # of living children HPI 13wk ob Details: LEONOR HAGER is a 23 year old who presents for routine OB visit. OB Visit ZACK Calculator Estimated Delivery Date Method Current WG Current Estimate 04/05/25 LMP (Certain) 12w 6d Other Estimates 04/03/25 Ultrasound #1 13w 1d Initial Weight: Not Recorded Date -???-???-???-???-??? -???-???-???-???-??? -???-???- EGA Weight BP Urine Prot -???-???-???-???-??? -???-???-???-???-??? -???-???- Glucose FHR FuHt Pres Dilation -???-???-???-???-??? -???-???-???-???-??? -???-???- Effaced St Visit Note 08/27/24 -???-???-???-???-??? -???-???-???-???-??? -???-???- 8w 3d 130 lb 6 oz 126/75 -???-???-???-???-??? -???-???-???-???-??? -???-???- 161 -???-???-???-???-??? -???-???-???-???-??? -???-???- JV- CRL is c onsistent with LMP. Desires NIPT. 09/27/24 -???-???-???-???-??? -???-???-???-???-??? -???-???- 12w 6d 134 lb 2 oz 119/86 Negative -???-???-???-???-??? -???-???-???-???-??? -???-???- Negative 168 -???-???-???-???-??? -???-???-???-???-??? -???-???- MH-No VB. Na usea improving. Br US to confirm FHT. PN labs and NIPT today ACOG First Trimester First Trimester: Discussed ROS Const Reports system reviewed and no additional complaints, except as documented GI Denies abdominal pain, Denies nausea and Denies vomiting Exam Const General: cooperative Nutritional Appearance: well nourished GI Palpation: soft, nontender and other (gravid) Results POC Urinalysis 2 Dip (Clinic) Office Urine Glucose Negative Last Edit by Hali Rai on 09/27/24 14:06 Office Urine Protein Negative Last Edit by Hali Rai on 09/27/24 14:06 Coding Level of Care Code OB Routine Diagnoses Supervision of high risk in first trimester O09.91 Trimester: first trimester 12 weeks gestation of Z3A.12 Weeks of gestation: 12 weeks Tachycardia R00.0 Fibromyalgia M79.7 Elevated blood pressure reading in office without diagnosis of hypertension R03.0 Generalized headaches R51.9 Assessment and Plan Assessment and Plan (1) Supervision of high-risk : Status: Acute Qualifiers: Trimester: first trimester Qualified Code(s): O09.91 - Supervision of high risk , unspecified, first trimester Comment: G1, ZACK 04/05/25, : Emeterio (2) : Status: Acute Qualifiers: Weeks of gestation: 12 weeks Qualified (more content not included)... Normal [facility] PAP I-G w/rfx hrHPV-Aptimaon 08-31-2024 ADEQ Comment Normal . [facility] Comment on above: Order Comment: Speci men Comment: [id number] Comment: No. of containers..01 ThinPrep Vial Result Comment: Sati sfactory for evaluation. Endocervical and/or squamous metaplastic cells (endocervical component) are present. Performed By: #### L 500.4050, L501.0900 #### [facility] [address] [place], [address] COMM . Normal . [facility] Comment on above: Order Comment: Speci men Comment: [id number] Comment: No. of containers..01 ThinPrep Vial Performed By: #### L 500.4050, L501.0900 #### [facility] [address] [place], [address] COMMENT Comment Normal . [facility] Comment on above: Order Comment: Speci men Comment: [id number] Comment: No. of containers..01 ThinPrep Vial Result Comment: This liquid based ThinPrep(R) pap test was screened with the use of an image guided system. Performed By: #### L 500.4050, L501.0900 #### [facility] [address] [place], [address] DIAG Comment Normal . [facility] Comment on above: Order Comment: Speci men Comment: [id number] Comment: No. of containers..01 ThinPrep Vial Result Comment: NEGA TIVE FOR INTRAEPITHELIAL LESION OR MALIGNANCY. Performed By: #### L 500.4050, L501.0900 #### [facility] [address] [place], [address] HPV RFLX Comment Normal . [facility] Comment on above: Order Comment: Speci men Comment: [id number] Comment: No. of containers..01 ThinPrep Vial Result Comment: The HPV DNA reflex criteria were not met with this specimen result therefore, no HPV testing was performed. Performed at: [address] [id number] Library Sales Consultant: Suma Alegria MD, Phone: [phone] Performed By: #### L 500.4050, L501.0900 #### [facility] [address] [place], [address] PAPSMR Comment Normal . [facility] Comment on above: Order Comment: Speci men Comment: [id number] Comment: No. of containers..01 ThinPrep Vial Result Comment: The Pap smear is a screening test designed to aid in the detection of premalignant and malignant conditions of the uterine cervix. It is not a diagnostic procedure and should not be used as the sole means of detecting cervical cancer. Both false-positive and false-negative reports do occur. Performed By: #### L 500.4050, L501.0900 #### [facility] [address] [place], [address] PERFORM Comment Normal . [facility] Comment on above: Order Comment: Speci men Comment: [id number] Comment: No. of containers..01 ThinPrep Vial Result Comment: Nel Johnson, Trip Follower (ASCP) Performed By: #### L 500.4050, L501.0900 #### [facility] [address] [place], [address] Chlamydia/GC ENRIQUE aptimaon CHLAMY,NUC ACID Negative Normal Negative [facility] Comment on above: Performed By: #### L 500.4050, L501.0900 #### [facility] [address] [place], [address] GC BY NUC ACID Negative Normal Negative [facility] Comment on above: Result Comment: Perf ormed at: =G - [facility] [address] martinez [place] [id number] Library Sales Consultant: Suma Alegria MD, Phone: [phone] Performed By: #### L 500.4050, L501.0900 #### [facility] [address] [place], [address] Urine Cultureon 08-28-2024 URC Culture exhibits no growth. Normal [facility] Comment on above: Performed By: #### L 501.0900, L7400.0353, L7000.1800, M100.2200 #### [facility] [address] [place], [address] Cervical or vagninal specime n microscopic examination by cytology stain (reported asOrdered By: Yudith Montero on 08-27-2024 Cytology report Cyto stain Doc (Cvx/Vag) Comment . [facility] Comment on above: The Pap smear is a s creening test designed to aid in thedetection of premalignant and malignant conditions of theuterine cervix. It is not a diagnostic procedure andshould not be used as the sole means of detecting cervicalcancer. Both false-positive and false-negative reports dooccur. Chlamydia trachomatis rRNA d etection by probe and target amplification methodOrdered By: Yudith Montero on 08-27-2024 C. trachomatis rRNA ENRIQUE+probe Ql (Unsp spec) Negative Negative [facility] - CytologyOrdered By: Yudith Montero on 08-27-2024 Trip Follower Cyto stain Nom (Cvx/Vag) [ID] Comment . [facility] Comment on above: Joan Johnson Cytolog ist (ASCP) Laboratory - Miscellaneous t estsOrdered By: Yudith Montero on 08-27-2024 Service comment (Unsp spec) [Interp] . . [facility] Neisseria gonorrhoeae nuclei c acid detection by amplified probe techniqueOrdered By: Yudith Montero on 08-27-2024 N. gonorrhoeae DNA ENRIQUE+probe Ql (Unsp spec) Negative Negative [facility] Comment on above: Performed at: =[address] [place] [id number] Director: Suma Alegria MD, Phone: [phone] No Panel InformationOrdered By: Yudith Montero on 08-27-2024 Pap Smear Specimen Adequacy Comment . [facility] Comment on above: Satisfactory for tk luation. Endocervical and/or squamous metaplasticcells (endocervical component) are present. Sample Taker Operator Office Visit Reporton 08-27-2024 Sample Taker Operator Office Visit Report [facility]'s [address], [address] [place] [address] OFFICE VISIT Date of Service: 08/27/24 MR#: [id number] Acct: [id number] Name: LEONOR HAGER Rep #: [id number] : 2000 Provider: Dr. Yudith Ortiz DO Age/Sex: 23/F [place] [facility]: Signed Intake Vital Signs 08/13/24 09:05 08/27/24 10:39 08/27/24 10:53 Height 5 ft 6 in 5 ft 6 in 5 ft 6 in Weight: 130 lb 6 oz BMI 21.0 BP 126/75 H Intake Visit Reasons: New OB, LMP 3/4, ZACK 12/ Chief Complaint: NOB Bolt Labeler Required: No Is patient in pain?: No Allergies latex Allergy (Mild, Verified 08/27/24 10:39) Rash Medications ???Medication ???Instructions ???Recorded ???Confirmed ???Type docosahexaenoic acid 200 mg mg PO 08/13/24 08/27/24 History capsule ( DHA) Last Menstrual Period: 06/29/24 Zika: Zika virus screening: Negative : No PFSH PFSH Medical History History of migraine headaches Family History Father Asthma Mother Blood clot in abdominal vein Hypertension Factor V Leiden Grandmother Breast cancer Grandfather Hypertension Myocardial infarction, Onset Age: 42 and at age 61 Grandfather Myocardial infarction Social History adopted: No household members: spouse current occupational status: student 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 current occupational exposures/hazards: No pets and animals: No history of recent travel: Yes ( - June 2024) out of state: Yes out of country: No sexually active: Yes Smoking Status: Never smoker alcohol intake: never substance use type: does not use well-balanced diet: daily or most days caffeine: Yes Type: coffee eating out: 1-3 times/week during the past year weight has: remained stable what type of physical activity do you participate in: walking frequency: 3-4 times per week duration: 15-30 minutes/day melvina/presybeterian: Uatsdin seatbelt use: always do you feel safe at home: Yes additional social history: : [employer] - [employer]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 History 1 Elective abortions Hx Para 0 Spontaneous abortions Hx # Term Pregnancies Ectopic pregnancies Hx # Pregnancies Multiple births # of living children HPI New OB, LMP 3/, ZACK 04/05 Details: LEONOR HAGER is a 23 year old who presents for New OB visit. OB Visit ZACK Calculator Estimated Delivery Date Method Current WG Current Estimate 04/05/25 LMP (Certain) 8w 3d Other Estimates 04/03/25 Ultrasound #1 8w 5d Estimated Due Date: 04/05/25 Initial Weight: Not Recorded Date -???-???-???-???-??? -???-???-???-???-??? -???-???- EGA Weight BP Urine Prot -???-???-???-???-??? -???-???-???-???-??? -???-???- Glucose FHR FuHt Pres Dilation -???-???-???-???-??? -???-???-???-???-??? -???-???- Effaced St Visit Note 08/27/24 -???-???-???-???-??? -???-???-???-???-??? -???-???- 8w 3d 130 lb 6 oz 126/75 -???-???-???-???-??? -???-???-???-???-??? -???-???- 161 -???-???-???-???-??? -???-???-???-???-??? -???-???- JV- CRL is c onsistent with LMP. Desires NIPT. Menstrual History Last Menstrual Period: 06/29/24 Reported LMP: definite Normal amount/duration: Yes Frequency in days: 21-25 On hormonal BC at conception: No hCG+: 07/27/24 Antepartum Record Genetic Screening: Congenital Heart Defect: Other, Neural Tube Defect: Other, Hemoglobinopathy Or Carrier: Other, Cystic Fibrosis: Other, Chromosome Abnormality: Other, Jordi-Sachs: Other, Hemophilia: Other, Intellectual Disability/Autism: Other, Recurrent Loss/Stillbirth: Other, Other Structural Defect: Other, Other Genetic Disease: Patient (Factor V - pt, pt's mom older brother) and Maternal Metabolic Disorder: Other Infection History: Live with someone with TB or Exposed to TB: No, Patient or Partner has history of Genital Herpes: No, Rash or Viral illness since last mentrual period: No, Prior GBS-Infected child: No, History of STD: No, HIV Infection: No, History of Hepatitis: No, Recent travel outside of [place]: No, Concern for hepatitis exposure: No, Varicella immune: Yes (Had vaccine) and Covid Vaccinated: No Medical History Medical History: Positive: Hypertension (08/06 Elevated BP in office w/o diagnosis, ER 08/02 with elevated BP), Heart disease (Tachycardia), Auto-immune disorder (Fibromyalgia) and Drug/latex allergies/reactions (Latex) and Negative: Diabetes, Kidney disease/UTI, Neurologic/epilepsy, Psychiatric, Depression/postpartu m depression, Hepatitis/liver disease, Varicosities/phlebit is, Thyroid dysfunction, Trauma/domestic violence, History of blood transfusions, D (Rh) Sensitized, P (more content not included)... Normal [facility] Protein+Creatinine Ratio,Uri neon 08-27-2024 PROT:CRE RATIO 68 mg/g CRE Normal 0-200 [facility] Comment on above: Performed By: #### L 501.0900, L7400.0353, L7000.1800, M100.2200 #### [facility] [address] [place], [address] Protein (U) [Mass/Vol] 9.6 mg/dL Normal 0.0-12.0 [facility] Comment on above: Performed By: #### L 501.0900, L7400.0353, L7000.1800, M100.2200 #### [facility] [address] [place], [address] UR CREAT 141.00 mg/dL Normal 28.00-217.00 [facility] Comment on above: Performed By: #### L 501.0900, L7400.0353, L7000.1800, M100.2200 #### [facility] [address] [place], [address] Random urine creatinine mariza urement (mass/volume)Ordered By: Yudith Montero on 08-27-2024 Creatinine Unsp time (U) [Mass/Vol] 141.00 mg/dL 28.00-217.00 [facility] Urine cultureOrdered By: Jane Montero on 08-27-2024 Bacteria identified Cx Nom (U) Culture exhibits no growth. [facility] Urine protein measurement (m ass/volume)Ordered By: Yudith Montero on 08-27-2024 Protein (U) [Mass/Vol] 9.6 mg/dL 0.0-12.0 [facility] Urine protein/creatinine mas s ratioOrdered By: Yudith Montero on 08-27-2024 Protein/Creatinine (U) [Mass ratio] 68 mg/g CRE 0-200 [facility] - Chemistry and C hemistry - challengeOrdered By: Mally Maldonado on 08-13-2024 HCG ( test) Ql (U) Positive [facility] Office Visit Reporton 2024 Office Visit Report [facility] [address] [place] [address] OFFICE VISIT Date of Service: 08/13/24 MR#: [id number] Acct: [id number] Patient: LEONOR HAGER Rep #: [id number] : 2000 Provider: UVALDO Medeiros ams Age/Sex: 23/F [place] [facility]: Signed Intake Vital Signs 08/06/24 10:46 08/13/24 09:05 Height 5 ft 6 in 5 ft 6 in Weight: 132 lb 2 oz 132 lb 4 oz BMI 21.3 21.3 BP 136/88 H 122/84 H Intake Visit Reasons: PNOB nurse visit Chief Complaint: In person PNOB Allergies latex Allergy (Mild, Verified 08/13/24 08:31) Rash Medications ???Medication ???Instructions ???Recorded ???Confirmed ???Type docosahexaenoic acid 200 mg mg PO 08/13/24 08/13/24 History capsule ( DHA) Is last menstrual period known: Yes Post menopausal: No Patient : Yes Nurse's Note: Pt here for PNOB. Office UPT: positive. Vitals WNL. PNOB questions completed. Problem list, allergies, and medications updated. Results POC Urine Office , Urine Positive Last Edit by Shamika Nuñez RN on 08/13/24 09:07 Assessment and Plan Assessment and Plan Orders: Orders POC Urine 08/13/24 Mally Maldonado CNM N91.2 - Amenorrhea, unspecified CBC W/Diff, Automated 08/27/24 Dr. Yudith Harper DO O09.90 - Supervision of high risk , unspecified, unspecified trimester Type Screen 08/27/24 Dr. Yudith Harper DO O09.90 - Supervision of high risk , unspecified, unspecified trimester Rubella IgG 08/27/24 Dr. Yudith Harper DO O09.90 - Supervision of high risk , unspecified, unspecified trimester Hepatitis C Antibody 08/27/24 Dr. Yudith Harper DO O09.90 - Supervision of high risk , unspecified, unspecified trimester Hepatitis B Surface Antigen 08/27/24 Dr. Yudith Harper DO O09.90 - Supervision of high risk , unspecified, unspecified trimester Culture, Urine 08/27/24 Dr. Yudith Harper DO O09.90 - Supervision of high risk , unspecified, unspecified trimester Syphilis Antibodies 08/27/24 Dr. Yudith Harper DO O09.90 - Supervision of high risk , unspecified, unspecified trimester Chlamydia/GC ENRIQUE aptima 08/27/24 Dr. Yudith Harper, DO O09.90 - Supervision of high risk , unspecified, unspecified trimester HIV 08/27/24 Dr. Yudith Harper, DO O09.90 - Supervision of high risk , unspecified, unspecified trimester Comprehensive Metabolic Profil 08/27/24 Dr. Yudith Harper, DO O09.90 - Supervision of high risk , unspecified, unspecified trimester, R03.0 - Elevated blood-pressure reading, without diagnosis of hypertension Protein+Creatinine Ratio,Urine 08/27/24 Dr. Yudith Harper DO O09.90 - Supervision of high risk , unspecified, unspecified trimester, R03.0 - Elevated blood-pressure reading, without diagnosis of hypertension PAP I-G w/rfx hrHPV-Aptima 08/27/24 Dr. Yudith Harper, DO Z12.4 - Encounter for screening for malignant neoplasm of cervix 08/16/24 1642 Date Mally Moseley Signature: Date (if applicable) CC: Normal [facility] Sample Taker Operator Office Visit Reporton 08-06-2024 Sample Taker Operator Office Visit Report [facility]'s [address], [address] [place] [address] OFFICE VISIT Date of Service: 08/06/24 MR#: [id number] Acct: [id number] Name: LEONOR HAGER Rep #: [id number] : 2000 Provider: UVALDO Medeiros ams Age/Sex: 23/F [place] [facility]: Signed Intake Vital Signs 08/06/24 10:46 Height 5 ft 6 in Weight: 132 lb 2 oz BMI 21.3 BP 136/88 H Intake Visit Reasons: ER fu for elevated BP per KW Chief Complaint: ER FU, Elevated BP Bolt Labeler Required: No Is patient in pain?: No Allergies latex Allergy (Mild, Verified 08/06/24 10:46) Rash Medications ???Medication ???Instructions ???Recorded ???Confirmed ???Type NK 08/06/24 08/06/24 [facility] History of migraine headaches Family History Father Asthma Mother Bleeding disorder Blood clot in abdominal vein Hypertension Grandmother Breast cancer Grandfather Hypertension Myocardial infarction, Onset Age: 42 and at age 61 Social History current occupational status: student 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 Was in [facility] ER on wednesday 08/02 for elevated bp. Newly -about 5 weeks and was sent from the school nurse (grades 7 and 8 visiting teacher) for BPs in the 150/90s. Was discharged from ER without medications and has been checking BPs at home which seem to be holding at 130s/80s. Having some headaches at times and is using tylenol which is helping. She does have a strong family hx of HTN. Encouraged fluid intake, magnesium and asprin 81mg to be started around 10-12 weeks gestation. will continue monitoring BP and will call if persistently over 140/90 or headaches worsen. Does have NOB in 3 weeks with JV and if BP continues to be elevated may need to start medication at that time. ROS Const Constitutional: Reports system reviewed and no additional complaints, except as documented Cardio Card: Reports system reviewed and no additional complaints, except as documented Resp Resp: Reports system reviewed and no additional complaints, except as documented GI GI: Reports system reviewed and no additional complaints, except as documented : Reports system reviewed and no additional complaints, except as documented Skin Skin/Breast: Reports system reviewed and no additional complaints, except as documented Neuro Neuro: Reports system reviewed and no additional complaints, except as documented Psych Psych: Reports system reviewed and no additional complaints, except as documented Exam Const General: cooperative, healthy appearing, comfortable and no acute distress Orientation: alert, awake and oriented x3 Neck Neck: normal visual inspection and full ROM Resp Effort Inspection: normal respiratory effort, able to speak in complete sentences and symmetric chest movement Skin General: no rashes or lesions noted Neuro General: patient alert, patient awake and patient oriented x3 Cognition: normal cognition Speech: speech normal Gait: normal gait Extrem General: normal to inspection and full ROM Psych Appearance: grossly normal and well kempt Mental Status: mental status grossly normal Affect: normal affect Speech and Movement: speech and movement normal Attitude: cooperative Thought Process: normal Thought Content: normal Judgment: judgment good Coding Level of Care Code Off vis,est,level 3 Diagnoses Generalized headaches R51.9 Elevated blood pressure reading in office without diagnosis of hypertension R03.0 Assessment and Plan Assessment and Plan (1) Generalized headaches: Status: Acute (2) Elevated blood pressure reading in office without diagnosis of hypertension: Status: Acute Plan: monitor BP daily Call with BP 140/90 or greater RTO in 3 weeks for NOB 08/06/24 1153 Date Mally Moseley Signature: Date (if applicable) CC: Normal [facility] CBC + DIFFon 08-02-2024 Baso # 0.04 x10EE3/UL Normal 0.00 - 0.10 [facility] Comment on above: Performed By: #### 2 69109 ####[facility],[address] [place] [address] Basophils/100 WBC (Bld) 0.5 % Normal 0.0 - 2.0 [facility] Comment on above: Performed By: #### 2 42592 ####[facility],[address] [place] [address] CBC + DIFF Normal [facility] Comment on above: Result Comment: CBC- COMPLETE BLOOD COUNT Performed By: #### 2 82109 ####[facility],[address] [place] [address] EO # 0.12 x10EE3/UL Normal 0.00 - 0.50 [facility] Comment on above: Performed By: #### 2 28630 ####[facility],[address] [place] [address] Eosinophils/100 WBC (Bld) 1.5 % Normal 0.0 - 7.0 [facility] Comment on above: Performed By: #### 2 99237 ####[place] [address] Erythrocyte distribution width (RBC) [Ratio] 14.0 % Normal 12.0 - 15.6 [facility] Comment on above: Performed By: #### 2 70998 ####[facility],[address] [place] [address] Hematocrit (Bld) [Volume fraction] 37.6 % Normal 34.0 - 46.0 [facility] Comment on above: Performed By: #### 2 48224 ####[facility],[address] [place], [place] [id number] Hemoglobin (Bld) [Mass/Vol] 13.0 g/dL Normal 12.0 - 16.0 [facility] Comment on above: Performed By: #### 2 79274 ####[facility],[address] [place], [place] [address] Lymph # 1.17 x10EE3/UL Normal 0.80 - 2.80 [facility] Comment on above: Performed By: #### 2 97082 ####[facility],[address] [place], [place] [address] Lymphocytes/100 WBC (Bld) 15.2 % Low 20.0 - 45.0 [facility] Comment on above: Performed By: #### 2 20029 ####[facility],[address] [place] [address] MANUAL DIFF N/A Normal [facility] Comment on above: Performed By: #### 2 26392 ####[facility],[address] [place] [address] MCH (RBC) [Entitic mass] 30 pg Normal 27 - 33 [facility] Comment on above: Performed By: #### 2 33983 ####[facility],[address] [place] [address] MCHC 35 X10 3 Normal 32 - 36 [facility] Comment on above: Performed By: #### 2 98761 ####[facility],[address] [place] [address] MCV (RBC) [Entitic vol] 85 fL Normal 80 - 99 [facility] Comment on above: Performed By: #### 2 57615 ####[facility],[address] [place] [address] Jenkins # 0.45 x10EE3/UL Normal 0.20 - 1.00 [facility] Comment on above: Performed By: #### 2 50429 ####[facility],[address] [place] [address] MONOS % 5.9 % Normal 0.0 - 10.0 [facility] Comment on above: Performed By: #### 2 43666 ####[facility],[address] [place] [address] Morphology Viraj (Bld) [Interp] N/A Normal [facility] Comment on above: Performed By: #### 2 53881 ####[facility],[address] [place] [address] Neut # 5.91 x10EE3/UL Normal 1.50 - 7.10 [facility] Comment on above: Performed By: #### 2 07071 ####[facility],[address],[place] [address] Neutrophils/100 WBC (Bld) 76.9 % High 46.0 - 76.0 [facility] Comment on above: Performed By: #### 2 29838 ####[facility],[address] [place] [address] PLATELET 355 x10EE3/UL Normal 150 - 450 [facility] Comment on above: Performed By: #### 2 60285 ####[facility],[address] [place] [address] Platelet mean volume (Bld) [Entitic vol] 7.5 fL Normal 6.6 - 10.5 [facility] Comment on above: Result Comment: AUTO MATED DIFFERENTIAL Performed By: #### 2 52638 ####[facility],[address] [place] [address]682 RBC 4.40 x 10EE6/UL Normal 4.10 - 5.30 [facility] Comment on above: Performed By: #### 2 76909 ####[facility],[address] [place] [address] 72053 WBC 7.7 x 10EE3/UL Normal 4.5 - 10.8 [facility] Comment on above: Performed By: #### 2 08657 ####[facility],[address] [place] [address] 70202 CMP with eGFRon 08-02-2024 AGE 23 years Normal [facility] Comment on above: Performed By: #### 2 60154 #### [facility],[address] [place] [address] 79991 Albumin [Mass/Vol] 4.0 g/dL Normal 3.4 - 5.0 [facility] Comment on above: Performed By: #### 2 02610 #### [facility],[address] [place] [address] 96387 Albumin/Globulin [Mass ratio] 1.1 {ratio} Normal 0.9 - 1.6 [facility] Comment on above: Performed By: #### 2 00268 #### [facility],[address] [place] [address] 67016 ALK PHOS 51 U/L Normal 46 - 116 [facility] Comment on above: Performed By: #### 2 08316 #### [facility],[address] [place] [address] 06726 ALT [Catalytic activity/Vol] 18 U/L Normal 16 - 63 [facility] Comment on above: Performed By: #### 2 22663 #### [facility],[address] [place] [address] 93301 Anion gap [Moles/Vol] 12 mmol/L Normal 10 - 20 [facility] Comment on above: Performed By: #### 2 22332 #### [facility],[address] [place] [address] 83351 AST [Catalytic activity/Vol] 13 U/L Normal 13 - 39 [facility] Comment on above: Performed By: #### 2 85605 #### [facility],[address] [place] [address]9723 B/C RATIO 21 ratio Normal 0 - 30 [facility] Comment on above: Performed By: #### 2 65624 #### [facility],[address] [place] [address]116 Bilirubin [Mass/Vol] 1.1 mg/dL High 0.2 - 1.0 [facility] Comment on above: Performed By: #### 2 26617 #### [facility],[address] [place] [address] 22926 Calcium [Mass/Vol] 8.6 mg/dL Normal 8.5 - 10.1 [facility] Comment on above: Performed By: #### 2 11901 #### [facility],[address] [place] [address] 97156 Chloride [Moles/Vol] 105 mmol/L Normal 98 - 107 [facility] Comment on above: Performed By: #### 2 95693 #### [facility],[address] [place] [address] 11030 CMP with eGFR Normal [facility] Comment on above: Result Comment: COMP REHENSIVE METABOLIC PANEL Performed By: #### 2 08881 #### [facility],[address] [place] [address] 69809 CO2 [Moles/Vol] 26.9 mmol/L Normal 21.0 - 32.0 [facility] Comment on above: Performed By: #### 2 78403 #### [facility],[address] [place] [address] 59655 Creatinine [Mass/Vol] 0.58 mg/dL Normal 0.55 - 1.02 [facility] Comment on above: Performed By: #### 2 88230 #### [facility],[address] [place] [address] 41527 GFR/1.73 sq M.predicted among non-blacks MDRD (S/P/Bld) [Vol rate/Area] mL/min/{1.73_m2} Normal 60 - 999 [facility] Comment on above: Performed By: #### 2 32459 #### [facility],[address] [place], [place] [id number] Result Comment: ACCO RDING TO THE NATIONAL KIDNEY DISEASE EDUCATION PROGRAM(NKDE), A NORMAL eGFR IS A VALUE GREATER THAN OR EQUAL TO 60 ML/MIN/1.73 SQ METERS. CHRONIC KIDNEY DISEASE: <60mL/MIN/1.73 SQ METERS KIDNEY FAILURE: <15mL/MIN/1.73 SQ METERS THIS TEST SHOULD ONLY BE USED FOR PATIENTS 18 YEARS OF AGE AND OLDER. Globulin (S) [Mass/Vol] 3.6 g/dL Normal 1.5 - 3.8 [facility] Comment on above: Performed By: #### 2 63569 #### [facility],[address] [place] [address] 26339 Glucose [Mass/Vol] 88 mg/dL Normal 74 - 106 [facility] Comment on above: Performed By: #### 2 [id number] #### [facility],[address] [place] [address] 24948 Potassium [Moles/Vol] 3.8 mmol/L Normal 3.5 - 5.1 [facility] Comment on above: Performed By: #### 2 [id number] #### [facility],[address] [place] [address] 52695 Protein [Mass/Vol] 7.6 g/dL Normal 6.4 - 8.2 [facility] Comment on above: Performed By: #### 2 68791 #### [facility],[address] [place] [address] 49622 Sodium [Moles/Vol] 140 mmol/L Normal 136 - 145 [facility] Comment on above: Performed By: #### 2 [id number] #### [facility],[address] [place] [address] 73140 Urea nitrogen [Mass/Vol] 12 mg/dL Normal 7 - 18 [facility] Comment on above: Performed By: #### 2 [id number] #### [facility],[address] [place] [address] 97004 D-DIMER, QUANTITATIVEon 04-0 D-DIMER QUANT <200 Normal 0 - 230 [facility] Comment on above: Performed By: #### 2 98429 ####[facility],[address] [place] [address] 28861 D-DIMER, QUANTITATIVE Normal [facility] Comment on above: Result Comment: BHUPENDRA T D-DIMER Performed By: #### 2 [id number] ####[facility],[address] [place] [address] 92794 ED MED ADMINISTRATION DETAIL on 08-02-2024 ED MED ADMINISTRATION DETAIL Java Integration Developer Medication Administration Record [address] [address] [id number] 08/02/2024 Patient: LEONOR HAGER Sex: Female : 2000 Age: 23y MEASUREMENTS: Wt: 55.8 kg, Ht/Ezekiel: 66.0 in, BMI: 19.85 ALLERGIES: latex Medication Ordered Medication Administration Date/Time 1 of 1 Normal [facility] ED NURSES CLINICAL NOTEon ED NURSES CLINICAL NOTE Nurse Narrative Nurse Clinical Narrative [facility] [address] [place] [address] [id number] 08/02/2024 09:04:00 Patient: LEONOR HAGER Sex: Female : 2000 Age: 23y Disposition: Discharge to Home Disposition Decision Time: 11:27 08/02/2024 Departure Time: 11:39 08/02/2024 TRIAGE Arrived by private vehicle. Historian: (patient). Primary physician (none). ( Per patient she states that she is 5 weeks , and has noted that her watch is notifiying her that her HR is jumping into the 150 for a couple of hours. Also notes that she is having light headedness and near-syncopal episodes.). Triage time: 09:09 08/02/2024. Acuity: LEVEL 3. Chief Complaint: DIZZINESS, LIGHT HEADED and NEAR-SYNCOPE. SEPSIS SCREEN: SIRS criteria negative: heart rate greater than 90. No possible sources of infection. -- 09:34 08/02/24 EDT Cassandra Blanchard R.N. 09:32 08/02/24. BP: 155/94 MAP: 114. HR: 100. RR: 16. O2 saturation: 99% Temperature: 99.2 F. Pain level now 8/10. Describes the pain as pressure. -- 09:33 08/02/24 EDT Cassandra Blanchard R.N. 09:36 08/02/24. SEPSIS SCREEN: NEGATIVE. SIRS criteria negative: heart rate greater than 90. No possible sources of infection. -- 09:36 08/02/24 EDT Cassandra Blanchard R.N. Measurements: 09:31 08/02/24 Wt: 55.8 kg, Ht/Ezekiel: 66.0 in, BMI: 19.85 -- 09:31 08/02/24 EDT Cassandra Blanchard R.N. 1 of 4 Nurse Narrative Medications: naturemade vitamins -- 09:28 08/02/24 EDT Cassandra Blanchard R.N. 09:08/02/24. Preferred [facility]acy: [facility]. -- 09:34 08/02/24 EDT Cassandra Blanchard R.N. Allergies: latex -- 09:08/02/24 EDT Cassandra Blanchard R.N. Problems: Factor V Leiden mutation -- 09:08/02/24 EDT Cassandra Blanchard R.N. ADDITIONAL SURGERIES: no known surgical history -- 09:08/02/24 EDT Cassandra Blanchard R.N. History 09:08/02/24. PAST MEDICAL HX: status: currently : LNMP: June 29 2024. SOCIAL HX: Never smoker. No alcohol use or drug use. The patient has not traveled outside the [place] Infectious disease exposure: No infectious disease exposure. ABUSE ASSESSMENT: The patient answered "yes" to the question(s) "Do you feel safe in your home?" and "no" to the question(s) "Are you afraid to go home?". No report of abuse. SELF HARM ASSESSMENT: Self harm assessment was performed. The patient answered "no" to the question(s) "Have you recently felt down, depressed, or hopeless?" and "Do you have thoughts of harming or killing yourself?". FALL RISK ASSESSMENT: Fall risk assessment completed. No risk factors identified. -- 09:34 08/02/24 EDT Cassandra Blanchard R.N. 2 of 4 Nurse Narrative 09:08/02/24. PAST MEDICAL HX: LNMP: (June 29 2024). -- 09:08/02/24 EDT Cassandra Blanchard R.N. Interventions 09:08/02/24. Identification band and allergy band on patient. Advanced care plan discussed with patient. Patient does not have advanced directive. -- 09:34 08/02/24 EDT Cassandra Blanchard R.N. PHYSICAL ASSESSMENT 09:35 08/02/24. Ambulatory to room. GENERAL / NEURO / PSYCH: Oriented X 4. Appears in no acute distress. Alert. Speech within normal limits. HEENT: No facial asymmetry noted. Pupils equal, round and reactive to light. RESPIRATORY: Breath sounds within normal limits. Respirations not labored. CVS: Cardiac rhythm: sinus tachycardia. Capillary refill less than 2 seconds. GI / : Abdomen soft and nontender. SKIN: Skin is warm and dry. -- 09:36 08/02/24 JESSICA Rai R.N. NURSING PROGRESS NOTES 09:08/02/24. Two patient identifiers checked. Call light placed in reach. Side rails up x 1. Bed placed in lowest position. Brakes of bed on. -- 09:08/02/24 JESSICA Rai R.N. 11:08/02/24. Patient ID band checked for patient name and birthdate. Blood samples drawn from the left wrist with 25g butterfly by nc ; labeled in presence of the patient and sent to lab: cardiac enzymes (2nd set). -- 11:08/02/24 JESSICA Rai R.N. DISPOSITION / DISCHARGE 10:18 08/02/24. Site #1 started via IV in the left antecubital space with a 20g angiocath with aseptic technique and good blood return; 1 attempt. Blood drawn: rainbow set tube(s). Labeled in the presence of the patient and sent to the lab. Saline lock flushed with 5 mL saline. -- 11:38 08/02/24 JESSICA Rai R.N. 11:17 08/02/24. BP: 130/88 MAP: 98 mmHg. HR: 79 bpm. -- 11:39 08/02/24 JESSICA Rai R.N. 11:38 08/02/24. Site #1 removed upon discharge. Catheter intact. Pressure dressing applied. -- 11:08/02/24 JESSICA Rai R.N. Departure time: 11:39 08/02/2024. Condition at departure: improved. No learning barriers present. Discharge instructions provided and reviewed with the patient. Reviewed warnings. Reviewed referral to an waiter and cashier. Patient verbalized unders (more content not included)... Normal [facility] ED ORDER SHEET (CPOE ONLY)on 08-02-2024 ED ORDER SHEET (CPOE ONLY) Order Sheet Order Sheet [address] [address] [id number] 08/02/2024 Patient: LEONOR HAGER Sex: Female : 2000 Age: 23y MEASUREMENTS: Wt: 55.8 kg, Ht/Ezekiel: 66.0 in, BMI: 19.85 ALLERGIES: latex MEDICATION/IV/DRIP/F LUID ORDERS Order Description Priority Entered Acknowledged Completed LAB ORDERS Order Description Priority Entered Acknowledged Collected Completed CBC w Diff Stat Stat 10:09 08/02/2024 10:08/02/2024 10:08/02/2024 Jordi Figueroa R.N. Kobe Miller, R.N. CMP Stat Stat 10:08/02/2024 10:08/02/2024 10:08/02/2024 Jordi Figueroa R.N. Kobe Miller, R.N. D-Dimer Stat Stat 10:09 08/02/2024 10:08/02/2024 10:08/02/2024 Jordi Figueroa R.N. Kobe Miller, R.N. Urinalysis Stat Stat 10:09 08/02/2024 10:22 08/02/2024 10:08/02/2024 Jordi Figueroa R.N. Kobe Miller, R.N. Troponin-I Stat Stat 10:08/02/2024 10:22 08/02/2024 10:22 08/02/2024 1 of 2 Order Sheet Jordi Figueroa R.N. Kobe Miller, R.N. EKG - ED Stat Stat 10:09 08/02/2024 10:08/02/2024 10:08/02/2024 Jordi Figueroa R.N. Kobe Miller R.Tom DIAGNOSTIC STUDY ORDERS Order Description Priority Entered Acknowledged Completed STAFF ORDERS Order Description Priority Entered Acknowledged Collected Completed [Electronically signed by Edis Brooks M.D. (08/02/2024 12:39 EDT)] 2 of 2 Normal [facility] ED PHYSICIAN CLINICAL REPORT on 08-02-2024 ED PHYSICIAN CLINICAL REPORT Narrative Physician Clinical Narrative [facility] [address] [place] [address] [id number] 08/02/2024 09:04:00 Patient: LEONOR HAGER Sex: Female : 2000 Age: 23y Disposition: Discharge to Home Disposition Decision Time: 11:27 08/02/2024 Departure Time: 11:39 08/02/2024 Measurements Wt: 55.8 kg, Ht/Ezekiel: 66.0 in, BMI: 19.85 Initial Vital Sign Measured Time BP MAP HR RR O2Sat ETCO2 Temp Pain GCS RTS 09:32 08/02/2024 155/94 114 100 16 99% 99.2 F 8 Time Seen: 10:00 08/02/2024. Arrived- By private vehicle. Historian- patient. HISTORY OF PRESENT ILLNESS Chief Complaint: CHEST DISCOMFORT. This started for several days intermittently and is now gone (resolved upon arrival in the emergency department). The patient has had difficulty breathing and nausea. (patient states that she wrist recently found out she was . This is her 1st and she is about 5 weeks by dates. States that she has had some mildly elevated blood pressure over the last couple weeks on several occasions.). (States that at times she feels a little anxious. She states that her heart seems to race at times.). Similar symptoms previously. None. REVIEW OF SYSTEMS 1 of 11 Narrative RESPIRATORY: No cough. CONSTITUTIONAL: No fever or chills. All other systems reviewed and are negative. PAST HISTORY See nurses notes. Factor V Leiden mutation Surgeries: no known surgical history Medications: naturemade vitamins Allergies: latex SOCIAL HISTORY Does not use tobacco. Patient is employed. 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 ADDITIONAL NOTES The nursing notes have been reviewed. PHYSICAL EXAM Vital Signs: Have been reviewed. Appearance: Alert. Oriented X3. No acute distress. Eyes: Pupils equal, round and reactive to light. Eyes normal inspection. ENT: Nose normal. Pharynx normal. Neck: Normal inspection. Neck supple. CVS: Normal heart rate and rhythm. Heart sounds normal. Pulses normal. Respiratory: No respiratory distress. Painless inspiration. Breath sounds normal. Chest nontender. Abdomen: Soft and nontender. Back: Normal external inspection. 2 of 11 Narrative Skin: Skin warm and dry. Normal skin color. No rash. Normal skin turgor. Neuro: Oriented X 3. No motor deficit. No sensory deficit. Reflexes normal. LABS, X-RAYS, AND EKG Laboratory Tests: CBC + DIFF Final DENISSE: 08/02/2024 10:12:00 EDT MsgRcvd: 08/02/2024 10:41 EDT Lab Test Result Reference Status Received Comments 08/02/2024 10:41 CBC-COMPLETE CBC + DIFF Final EDT BLOOD COUNT 08/02/2024 10:41 WBC 7.7 x 10/UL 4.5 - 10.8 Final EDT 08/02/2024 10:41 RBC 4.40 x 10/UL 4.10 - 5.30 Final EDT 08/02/2024 10:41 HEMOGLOBIN 13.0 g/dl 12.0 - 16.0 Final EDT 08/02/2024 10:41 HEMATOCRIT 37.6 % 34.0 - 46.0 Final EDT 08/02/2024 10:41 MCV 85 fl 80 - 99 Final EDT 08/02/2024 10:41 MCH 30 pg 27 - 33 Final EDT 08/02/2024 10:41 MCHC 35 X10 3 32 - 36 Final EDT 08/02/2024 10:41 RDW/CV 14.0 % 12.0 - 15.6 Final EDT 3 of 11 Narrative Lab Test Result Reference Status Received Comments 08/02/2024 10:41 PLATELET 355 x10/UL 150 - 450 Final EDT 08/02/2024 10:41 AUTOMATED MPV 7.5 fl 6.6 - 10.5 Final EDT DIFFERENTIAL 76.9 % 08/02/2024 10:41 NEUT % 46.0 - 76.0 Final Above high normal EDT 15.2 % 08/02/2024 10:41 LYMPH % 20.0 - 45.0 Final Below low normal EDT 08/02/2024 10:41 MONOS % 5.9 % 0.0 - 10.0 Final EDT 08/02/2024 10:41 EO % 1.5 % 0.0 - 7.0 Final EDT 08/02/2024 10:41 BASO % 0.5 % 0.0 - 2.0 Final EDT 08/02/2024 10:41 Lymph # 1.17 x10/UL 0.80 - 2.80 Final EDT 08/02/2024 10:41 Neut # 5.91 x10/UL 1.50 - 7.10 Final EDT 08/02/2024 10:41 Jenkins # 0.45 x10/UL 0.20 - 1.00 Final EDT 08/02/2024 10:41 EO # 0.12 x10/UL 0.00 - 0.50 Final EDT 08/02/2024 10:41 Baso # 0.04 x10/UL 0.00 - 0.10 Final EDT 08/02/2024 10:41 MANUAL DIFF N/A New Order EDT 4 11 Narrative Lab Test Result Reference Status Received Comments 08/02/2024 10:41 MORPHOLOGY N/A New Order EDT CMP with eGFR Final DENISSE: 08/02/2024 10:12:00 EDT MsgRcvd: 08/02/2024 11:10 EDT Lab Test Result Reference Status Received Comments COMPREHENSIVE 08/02/2024 CMP with eGFR Final METABOLIC 11:10 EDT PANEL 08/02/2024 SODIUM 140 mmol/l 136 - 145 Final 11:10 EDT 08/02/2024 POTASSIUM 3.8 mmol/L 3.5 - 5.1 Final 11:10 EDT 08/02/2024 CHLORIDE 105 mmol/L 98 - 107 Final 11:10 EDT 08/02/2024 CO2 26.9 mmol/L 21.0 - 32.0 Final 11:10 EDT 08/02/2024 GLUCOSE 88 mg/dl 74 - 106 Final 11:10 EDT 08/02/2024 BUN 12 mg/dl 7 - 18 Final 11:10 EDT 08/02/2024 CREATININE 0.58 mg/dl 0.55 - 1 (more content not included)... Normal [facility] ED SUPER BILLon 08-02-2024 ED SUPER BILL [facility] [address] [place] [address] [phone] 08/02/2024 Patient: LEONOR HAGER Sex: Female : 2000 Age: 23y Item Professional Category Description Facility Code Code Quantity Fee Total Nurse/E/M EMERGENCY 171017 1 $0.00 $0.00 DEPARTMENT VISIT MODERATE SEVERITY (75034-50) Grand Total $0.00 Providers Edis Brooks M.D. Chief Complaint CHEST DISCOMFORT. Principal Diagnosis Acute dyspnea (unknown cause). Atypical chest pain. 1st trimester . 1 of 2 Superbill ICD-10 Codes R07.89: Other chest pain R06.09: Other forms of dyspnea 2 of 2 Normal [facility] ED VISIT SUMMARYon ED VISIT SUMMARY Visit Overview Visit Overview [address] [place] [address] [id number] 08/02/2024 Patient: LEONOR HAGER Sex: Female : 2000 Age: 23y 08/02/2024 12:39 PM EDT ED Arrival:09:04 08/02/2024 EDT Status: Recent Travel:no Language:eng Adv Directive:No Isolation Status: Ethnicity:N Fall Risk:no risk Infectious Disease Exposure:no Measurements:5'6" / 167.6 Self-Harm Status:risk Sepsis Screen:negative cm 123.0 lb / 55.8 kg Chief Complaint:DIZZINESS, LIGHT HEADED, NEAR-SYNCOPE, (none), and (Per patient she states that she is 5 weeks , and has noted that her watch is notifiying her that her HR is jumping into the 150 for a couple of hours. Also notes that she is having light headedness and near-syncopal episodes. ) ALLERGIES latex 1 of 3 Visit Overview HOME MEDICATIONS naturemade vitamins PAST MEDICAL HISTORY / PROBLEMS Factor V Leiden mutation LNMP: (June 29 2024) status: currently : LNMP: June 29 2024 See nurses notes PAST SURGICAL HISTORY No Surgeries SOCIAL HISTORY Smoking status: No Alcohol use: No Drug use: No ED COURSE MEDICATIONS GIVEN IN EMERGENCY DEPARTMENT IV SITE INFORMATION INTAKE OUTPUT REASSESMENT (most recent) 09:35 08/02/24. Ambulatory to room. GENERAL / NEURO / PSYCH: Oriented X 4. Appears in no acute distress. Alert. Speech within normal limits. HEENT: No facial asymmetry noted. Pupils equal, round and reactive to light. RESPIRATORY: Breath sounds within normal limits. Respirations not labored. CVS: Cardiac rhythm: sinus tachycardia. Capillary refill less than 2 seconds. GI / : Abdomen soft and nontender. SKIN: Skin is warm and dry. VITAL SIGNS 2 of 3 Visit Overview First Vitals Last Vitals Temp 09:32 08/02/24 99.2 F Temp 11:17 08/02/24 BP 09:32 08/02/24 155/94 BP 11:17 08/02/24 130/88 HR 09:32 08/02/24 100 HR 11:17 08/02/24 79 RR 09:32 08/02/24 16 RR 11:17 08/02/24 O2 Sat 09:32 08/02/24 99% O2 Sat 11:17 08/02/24 Pain 09:32 08/02/24 8 Pain 11:17 08/02/24 ETCO2 09:32 08/02/24 ETCO2 11:17 08/02/24 GCS 09:32 08/02/24 GCS 11:17 08/02/24 RTS 09:32 08/02/24 RTS 11:17 08/02/24 PROCEDURES NURSING INTERVENTIONS LABS / STUDIES LABS / STUDIES ORDERED CBC w Diff CMP D-Dimer EKG - ED Troponin-I Urinalysis CLINICAL IMPRESSION ACUTE DYSPNEA (UNKNOWN CAUSE) ATYPICAL CHEST PAIN 3 of 3 Normal [facility] ED VITALS FLOW SHEETon 08-02 ED VITALS FLOW SHEET Vitals Vital Sign Flow Sheet [address] [address] [id number] 08/02/2024 Patient: LEONOR HAGER Sex: Female : 2000 Age: 23y Measurements Wt: 55.8 kg, Ht/Ezekiel: 66.0 in, BMI: 19.85 Measured Time BP MAP HR RR O2Sat ETCO2 Temp Pain GCS RTS 11:17 08/02/2024 130/88 98 79 09:32 08/02/2024 155/94 114 100 16 99% 99.2 F 8 1 of 1 Normal [facility] TROPONINon 08-02-2024 HS TROPONIN <4.0 Normal 0.0 - 51.4 [facility] Comment on above: Performed By: #### 2 [id number] #### [facility],[address] [place] [address] 21814 URINALYSISon 08-02-2024 Amorphous NONE Normal [facility] Comment on above: Performed By: #### 2 95007 #### [facility],[address] [place] [address] 11985 Bacteria TRACE Normal [facility] Comment on above: Performed By: #### 2 28730 #### [facility],[address] [place], [place] [id number] Bilirubin Ql (U) Negative Normal NORMAL: NEGATIVE [facility] Comment on above: Performed By: #### 2 59145 #### [facility],[address] [place], [place] [id number] Casts NONE Normal [facility] Comment on above: Performed By: #### 2 83620 #### [facility],[address] [place], [place] [id number] Clarity (U) clear Normal NORMAL: CLEAR [facility] Comment on above: Performed By: #### 2 95345 #### [facility],[address] [place] [address] 26860 Color (U) yellow Normal NORMAL: YELLOW [facility] Comment on above: Performed By: #### 2 23895 #### [facility],[address] [place] [address] 41610 Crystals LM Nom (Urine sed) NONE Normal [facility] Comment on above: Performed By: #### 2 15413 #### [facility],[address] [place] [address] 29932 Epi Cells OCC Normal [facility] Comment on above: Performed By: #### 2 68043 #### [facility],[address] [place] [address] 31826 Glucose Ql (U) NORM Normal NORMAL: NORMAL [facility] Comment on above: Performed By: #### 2 87420 #### [facility],[address] [place] [address] 20848 Hemoglobin Ql (U) Negative Normal NORMAL: NEGATIVE [facility] Comment on above: Performed By: #### 2 08049 #### [facility],[address] [place] [address] 01406 Ketone Negative Normal NORMAL: NEGATIVE [facility] Comment on above: Performed By: #### 2 87675 #### [facility],[address] [place] [address] 37476 Leukocytes 100 Abnormal NORMAL: NEGATIVE [facility] Comment on above: Performed By: #### 2 75334 #### [facility],[address] [place] [address] 11014 Mucous NONE Normal [facility] Comment on above: Performed By: #### 2 36743 #### [facility],[address] [place] [address] 25901 Nitrite Ql (U) Negative Normal NORMAL: NEGATIVE [facility] Comment on above: Performed By: #### 2 70880 #### [facility],[address] [place] [address] 56461 pH (U) 6.5 [pH] Normal NORMAL: 5.0-8.0 [facility] Comment on above: Performed By: #### 2 24540 #### [facility],[address] [place] [address] 35643 Protein Ql (U) Negative Normal NORMAL: NEGATIVE [facility] Comment on above: Performed By: #### 2 90143 #### [facility],[address] [place] [address] 29191 Rbc NONE Normal 0-3/hpf [facility] Comment on above: Performed By: #### 2 07604 #### [facility],[address] [place] [address] Sp [place] 1.015 Normal NORMAL: 1.010-1.030 [facility] Comment on above: Performed By: #### 2 41745 #### [facility],[address] [place] [address] Specimen Type R Normal [facility] Comment on above: Performed By: #### 2 81778 #### [facility],[address] [place] [address] Urinalysis dipstick W Reflex Microscopic panel (U) SEE BELOW Normal [facility] Comment on above: Result Comment: MICR OSCOPIC Performed By: #### 2 37262 #### [facility],[address] [place] [address] Urobilinog NORM Normal NORMAL: NORMAL [facility] Comment on above: Performed By: #### 2 87394 #### [facility],[address] [place] [address] Wbc 1-5 Normal 0-5/hpf [facility] Comment on above: Performed By: #### 2 35577 #### [place] [address] Yeast NONE Normal [facility] Comment on above: Performed By: #### 2 89606 #### [facility],[address] [place] [address] CNOVon 07-12-2024 CNOV Office Visit (UCWSTR) LEONOR ALARCON ([id number]) 1 F Date Time Provider Department 07/12/24 11:00 AM OBI MIN [facility] During your visit today, we recorded the following information about you: Temperature Pulse Respiration Blood pressure 98.8 degrees 128/minute 20/minute 162/102 Weight 59.1 kg Obi Min APRN.CNP 07/12/2024 11:01 AM Signed [facility] Subjective Leonor Alarcon is a 23 year old female. Patient presents with: Sore Throat: bodyaches, chills and fever x 2 days Patient came in with complaints of sore throat fever body aches and chills for 2 days. Patient denies any other symptoms. The history is provided by the patient. No multi disciplined language analyst was used. Sore Throat Review of Systems Constitutional: Positive for chills and fever. HENT: Positive for sore throat. Objective BP 162/102 Pulse (!) 128 Temp 37.1 ?C (98.8 ?F) Resp 20 Wt 59.1 kg (130 lb 4.7 oz) SpO2 99% Physical Exam Constitutional: Appearance: Normal appearance. HENT: Right Ear: Tympanic membrane, ear canal and external ear normal. Left Ear: Tympanic membrane, ear canal and external ear normal. Mouth/Throat: Mouth: Mucous membranes are moist. Pharynx: Posterior oropharyngeal erythema present. Eyes: Pupils: Pupils are equal, round, and reactive to light. Cardiovascular: Rate and Rhythm: Normal rate and regular rhythm. Heart sounds: Normal heart sounds. Pulmonary: Effort: Pulmonary effort is normal. Breath sounds: Normal breath sounds. Neurological: Mental Status: She is alert. No past medical history on file. No past surgical history on file. ALLERGIES Patient has no known allergies. MEDICATIONS No prescriptions on file. No family history on file. Social History Tobacco Use Smoking status: Never Smokeless tobacco: Never {ASSESSMENT/PLAN: 1. Sore throat - ICD9: 462, ICD10: J02.9 (primary diagnosis) - Group A strep molecular testing negative - Discussed supportive care treatment with fluids, rest and analgesia. - Contagious dz precautions discussed- including considered contagious until on antibiotics for 24 hours - STREP A MOLECULAR (POC) 2. URI, acute - ICD9: 465.9, ICD10: J06.9 - Discussed viral etiology and rationale for treatment. - Symptomatic treatment with prn analgesia - Supportive care with fluids and rest Obi Min APRN.CNP MDM Procedures Allergies As of Date: 07/12/2024 (No Known Allergies) Date Reviewed: 07/12/2024 Reviewed by: Cayla Martinez MA - Fully Assessed Reason for Visit: Sore Throat [200] Cmt: bodyaches, chills and fever x 2 days Primary Visit Diagnosis:Sore throat [J02.9] Other Visit Diagnosis:URI, acute [J06.9] Order(s):STREP A MOLECULAR (POC) [2324905] Order #: [id number]. #:[id number] Problem List As Of Date: 07/12/2024 (None) Encounter Status:Closed by OBI MIN on 07/12/24 Normal [facility] STREP A MOLECULAR (POC)on Procedural Control Valid [facility] Strep A (POCT) Negative Negative [facility] CNOVon 03-08-2024 CNOV Office Visit (UCWSTR) LEONOR ALARCON ([id number]) 1 F Date Time Provider Department 03/08/24 6:30 PM CHASE NICOLE [facility] During your visit today, we recorded the following information about you: Temperature Pulse Respiration Blood pressure 98 degrees 84/minute 18/minute 128/80 Weight 56.3 kg Chase Nicole MD 03/08/2024 7:02 PM Signed Patient presents with: Cough: Cough, chest congestion and sinus pressure off and on since November HPI: Feeling sick recurrently for almost 3 months. She has up to a week of resolution before sinus and URI symptoms return. Her current flare has been going on for over 2 weeks. Positive symptoms: cough, sinus pressure, Chest tightness yesterday, Sore throat, Nasal Congestion, Rhinorrhea, Post nasal drainage, Nausea, Negative symptoms: Chest pain, current Fever (has had fevers this fall), Vomiting, Diarrhea, OTC: none. Has tried an antihistamine a few times without improvement in the past. No known seasonal allergies. Currently going to college and communing. She stayed home from school today. MEDICATIONS: No current outpatient medications on file. No current facility-administere d medications for this visit. ALLERGIES: ALLERGIES No Known Allergies VITALS: BP 128/80 Pulse 84 Temp 36.7 ?C (98 ?F) (Tympanic) Resp 18 Wt 56.3 kg (124 lb 1.9 oz) SpO2 98% PHYSICAL EXAM: GEN: Pleasant, in no acute distress. HEENT: PERRL, EOMI, conjunctiva clear Ears: canals clear. TMs without erythema, bulge, or effusion Sinuses: non-tender frontal sinus, tender maxillary sinuses Throat: moist mucous membranes, no erythema, no exudate Neck: supple, no thyromegaly, no lymphadenopathy HEART: regular rate and rhythm, no murmurs LUNGS: clear to auscultation, no wheezes or crackles, no increased WOB ASSESSMENT/PLAN: 1. Acute non-recurrent sinusitis, unspecified location - ICD9: 461.9, ICD10: J01.90 Suspect multiple viral URIs this fall. Current episode has had sinus symptoms for over 2 weeks and may be treated for possible secondary bacterial sinusitis. - AMOXICILLIN 875 MG-POTASSIUM CLAVULANATE 125 MG TABLET Follow up with ENT or rodding anode worker for further evaluation if symptoms fail to improve. Chase Nicole MD Allergies As of Date: 03/08/2024 (No Known Allergies) Date Reviewed: 03/08/2024 Reviewed by: Sandrita Arambula LPN - Fully Assessed Reason for Visit: Cough [28] Cmt: Cough, chest congestion and sinus pressure off and on since week of November Primary Visit Diagnosis:Acute non-recurrent sinusitis, unspecified location [J01.90] Order(s):amoxicillin -clavulanate potassium (AUGMENTIN) 875-125 mg per tabletTake 1 tablet by mouth two times a day for 5 days.Disp: 10 tabletRfl: 0 Prescriptions as of 03/08/2024 - amoxicillin-clavulan ate potassium (AUGMENTIN) 875-125 mg per tablet Take 1 tablet by mouth two times a day for 5 days. Problem List As Of Date: 03/08/2024 (None) Prescriptions ordered this encounter Disp Refills Start End AMOXICILLIN 875 MG-POTASSIUM CLAVULA* 10 t* 0 03/08/2024 03/13/2024 Route: ORAL Sig: Take 1 tablet by mouth two times a day for 5 days. Medications Discontinued During This Encounter Prescriptions - Brompheniramine-Pseu doeph-DM (BROMFED DM) 2-30-10 mg/5 mL syrup (Discontinued) Reported on 03/08/2024 Level of Service: OFFICE/OUTPATIENT ESTABLISHED MOD [facility] 30 MIN [77922] Letter Text Encounter Status:Closed by CHASE NICOLE on 03/08/24 [facility] 01-15-2024 [facility] LEONOR ALARCON ([id number]) 1 F Date Time Provider Department 01/15/24 OBI MIN [facility] During your visit today, we recorded the following information about you: Obi Min APRN.[facility] 01/15/2024 7:18 AM Signed Positive for covid. Negative for flu and rsv. Please treat with over the counter medication for supportive therapy. Thank you Arleth Castillo MA 01/15/2024 8:07 AM Signed Left VM instructing patient to return call to discuss results. RIRI Perez Stephanie, RN 01/15/2024 9:59 AM Signed Patient notified of results and provider's instructions. Patient verbalizes understanding. Yisel Eubanks RN Allergies As of Date: 01/15/2024 (No Known Allergies) Date Reviewed: 01/14/2024 Reviewed by: Arleth Castillo MA - Fully Assessed Reason for Visit: Results [95] Prescriptions as of 01/15/2024 - Brompheniramine-Pseu doeph-DM (BROMFED DM) 2-30-10 mg/5 mL syrup Take 5 mL by mouth four times a day as needed. Problem List As Of Date: 01/15/2024 (None) Encounter Status:Closed by YISEL EUBANKS on 01/15/24 Normal [facility] 01-14-2024 CNOV Office Visit ([facility]) LEONOR ALARCON ([id number]) 1 F Date Time Provider Department 01/14/24 7:30 PM TATIANA CISNEROS [facility] During your visit today, we recorded the following information about you: Temperature Pulse Respiration Blood pressure 102.3 degrees 122/minute 18/minute 135/87 Weight 55.3 kg Tatiana Cisneros, RUSSELL.MICROBIOLOGY ANALYST 01/14/2024 7:44 PM Signed Subjective Fever Associated symptoms include congestion, headaches, sore throat and cough. Pertinent negatives include no diarrhea and no vomiting. Leonor Alarcon is a 23 year old female who presents with 2 days of cough, congestion, fever, chills and body aches. She had a fever at home of 101 degrees F today. She took tylenol. She has been visiting family in the hospital recently. She has had some nausea and a headache. Review of Systems Constitutional: Positive for chills and fever. HENT: Positive for congestion and sore throat. Negative for ear pain. Respiratory: Positive for cough. Negative for shortness of breath. Cardiovascular: Negative. Gastrointestinal: Positive for nausea. Negative for abdominal pain, diarrhea and vomiting. Neurological: Positive for headaches. BP 135/87 Pulse (!) 122 Temp (!) 39.1 ?C (102.3 ?F) Resp 18 Wt 55.3 kg (121 lb 14.6 oz) SpO2 98% No past medical history on file. No past surgical history on file. ALLERGIES Patient has no known allergies. MEDICATIONS Brompheniramine-Pseu doeph-DM (BROMFED DM) 2-30-10 mg/5 mL syrup Take 5 mL by mouth four times a day as needed. No family history on file. Social History Tobacco Use Smoking status: Never Smokeless tobacco: Never Objective Physical Exam Vitals and nursing note reviewed. Constitutional: Appearance: Normal appearance. HENT: Right Ear: Tympanic membrane, ear canal and external ear normal. Left Ear: Tympanic membrane, ear canal and external ear normal. Nose: Nose normal. Mouth/Throat: Mouth: Mucous membranes are moist. Pharynx: Oropharynx is clear. Uvula midline. No oropharyngeal exudate or posterior oropharyngeal erythema. Cardiovascular: Rate and Rhythm: Regular rhythm. Tachycardia present. Heart sounds: Normal heart sounds. Pulmonary: Effort: Pulmonary effort is normal. No respiratory distress. Breath sounds: Normal breath sounds. No wheezing or rales. Musculoskeletal: Cervical back: Neck supple. Skin: General: Skin is warm and dry. Findings: No erythema or rash. Neurological: Mental Status: She is alert. ASSESSMENT/PLAN: 1. Viral URI with cough - ICD9: 465.9, ICD10: J06.9 - Discussed viral etiology and rationale for treatment. - Symptomatic treatment with prn analgesia - Supportive care with fluids and rest - BROMPHENIRAMINE-PSEU DOEPHEDRINE-DM 2 MG-30 MG-10 MG/5 ML ORAL SYRUP - COVID AND INFLUENZA A/B AND RSV PCR, ROUTINE - Follow-up with your PCP in 3-5 days if symptoms have not improved or sooner if symptoms worsen - Discussed red flags and need for immediate medical evaluation if any occur. - Discussed supportive care treatment with fluids, rest and analgesia. - Discussed expected course of illness Tatiana Cisneros APRN.Tatiana Woodall APRN.CNP 01/14/2024 7:44 PM Signed ASSESSMENT/PLAN: 1. Viral URI with cough - ICD9: 465.9, ICD10: J06.9 - Discussed viral etiology and rationale for treatment. - Symptomatic treatment with prn analgesia - Supportive care with fluids and rest - BROMPHENIRAMINE-PSEU DOEPHEDRINE-DM 2 MG-30 MG-10 MG/5 ML ORAL SYRUP - COVID AND INFLUENZA A/B AND RSV PCR, ROUTINE - Follow-up with your PCP in 3-5 days if symptoms have not improved or sooner if symptoms worsen - Discussed red flags and need for immediate medical evaluation if any occur. - Discussed supportive care treatment with fluids, rest and analgesia. - Discussed expected course of illness Tatiana Cisneros APRN.MICROBIOLOGY ANALYST Treatment for Viral Upper Respiratory Tract Infections Your body will kill off the virus by itself. Additionally, you can prime your body's immune system. This may help you get better more quickly. Drink lots of fluids Make sure you are eating well Get plenty of rest We do not have any medications that kill off these viruses. Antibiotics are used to treat bacterial infections; however, they are not active against viral infections. There are some things that might help you feel better, though. Vaporizers, humidifiers, hot showers, and hot fluids help open respiratory and sinus passages [facility] [place] may offer relief of nasal and head congestion Kaleb's Vapor Rub may relieve congestion Tylenol and Advil help control fevers and headaches Salt water gargles help relieve sore throats Chloraceptic spray or throat lozenges may also help relieve sore throat symptoms Occasionally, viral infections turn into something more serious. You should see your doct (more content not included)... Normal [facility] COVID AND INFLUENZA A/B AND RSV PCR, ROUTINEon 01-14-2024 SARS-CoV-2 (COVID-19) RNA ENRIQUE+probe Ql (Unsp spec) SARS-COV-2 (AGENT OF COVID-19) RNA: Detected INFLUENZA A RNA: Not detected INFLUENZA B RNA: Not detected RESPIRATORY SYNCYTIAL VIRUS (RSV) RNA: Not detected Abnormal [facility] Comment on above: Performed By: #### C VFS #### [facility] CLIA [id number] [address] [place] [address] [place] CHEST AND LATERAL OR 2 VIEWS on 09-10-2022 CHEST AND LATERAL OR 2 VIEWS EXAM: Chest x-ray HISTORY: . Acute bronchitis . COMPARISON: None. TECHNIQUE: Total and lateral chest FINDINGS: Heart and vascularity are unremarkable. Lungs are free of focal infiltrates. No acute bony abnormality is appreciated. IMPRESSION: No acute heart or lung disease identified. Normal [facility] Vital Signs Date Time Vital Sign Value Performing Clinician Facility 02-24-2025 11:05-0400 Diastolic blood pressure 92 mm[Hg] No Primary Care Physician [facility] 02-24-2025 11:05-0400 Systolic blood pressure 135 mm[Hg] No Primary Care Physician [facility] 02-24-2025 10:58-0400 Body height 167.64 cm No Primary Care Physician [facility] 02-24-2025 10:58-0400 Body mass index (BMI) [Ratio] 26.3 kg/m2 No Primary Care Physician [facility] 02-24-2025 10:58-0400 Body weight 73.99 kg No Primary Care Physician [facility] 02-16-2025 08:42-0400 Body height 167.64 cm No Primary Care Physician [facility] 02-16-2025 08:40-0400 Body mass index (BMI) [Ratio] 25.9 kg/m2 No Primary Care Physician [facility] 02-16-2025 08:40-0400 Body weight 72.74 kg No Primary Care Physician [facility] 02-16-2025 08:40-0400 Diastolic blood pressure 92 mm[Hg] No Primary Care Physician [facility] 02-16-2025 08:40-0400 Systolic blood pressure 129 mm[Hg] No Primary Care Physician [facility] 02-05-2025 12:48-0400 Body temperature 98.6 [degF] No Primary Care Physician [facility] 02-05-2025 12:48-0400 Heart rate 100 /min No Primary Care Physician [facility] 02-05-2025 12:48-0400 Respiratory rate 18 /min No Primary Care Physician [facility] 02-05-2025 12:48-0400 SaO2% (BldA) [Mass fraction] 98 % No Primary Care Physician [facility] 02-05-2025 12:47-0400 Diastolic blood pressure 78 mm[Hg] No Primary Care Physician [facility] 02-05-2025 12:47-0400 Systolic blood pressure 129 mm[Hg] No Primary Care Physician [facility] 02-05-2025 12:23-0400 Body mass index (BMI) [Ratio] 25.8 kg/m2 No Primary Care Physician [facility] 02-05-2025 12:23-0400 Body weight 72.57 kg No Primary Care Physician [facility] 02-02-2025 08:55-0400 Body height 167.64 cm No Primary Care Physician [facility] 02-02-2025 08:52-0400 Body mass index (BMI) [Ratio] 25.8 kg/m2 No Primary Care Physician [facility] 02-02-2025 08:52-0400 Body weight 72.57 kg No Primary Care Physician [facility] 02-02-2025 08:52-0400 Diastolic blood pressure 87 mm[Hg] No Primary Care Physician [facility] 02-02-2025 08:52-0400 Systolic blood pressure 124 mm[Hg] No Primary Care Physician [facility] 01-27-2025 09:59-0400 Diastolic blood pressure 88 mm[Hg] No Primary Care Physician [facility] 01-27-2025 09:59-0400 Systolic blood pressure 121 mm[Hg] No Primary Care Physician [facility] 01-27-2025 09:35-0400 Body height 167.64 cm No Primary Care Physician [facility] 01-27-2025 09:35-0400 Body mass index (BMI) [Ratio] 25.3 kg/m2 No Primary Care Physician [facility] 01-27-2025 09:35-0400 Body weight 71.21 kg No Primary Care Physician [facility] 01-21-2025 15:15-0400 Diastolic blood pressure 79 mm[Hg] No Primary Care Physician [facility] 01-21-2025 15:15-0400 Heart rate 78 /min No Primary Care Physician [facility] 01-21-2025 15:15-0400 Systolic blood pressure 118 mm[Hg] No Primary Care Physician [facility] 01-21-2025 14:34-0400 SaO2% (BldA) [Mass fraction] 97 % No Primary Care Physician [facility] 01-21-2025 14:32-0400 Body temperature 99.2 [degF] No Primary Care Physician [facility] 01-21-2025 14:32-0400 Respiratory rate 16 /min No Primary Care Physician [facility] 01-21-2025 14:17-0400 Body height 167.64 cm No Primary Care Physician [facility] 01-21-2025 14:17-0400 Body mass index (BMI) [Ratio] 24.9 kg/m2 No Primary Care Physician [facility] 01-21-2025 14:17-0400 Body weight 69.96 kg No Primary Care Physician [facility] 01-17-2025 09:46-0400 Diastolic blood pressure 88 mm[Hg] No Primary Care Physician [facility] 01-17-2025 09:46-0400 Systolic blood pressure 139 mm[Hg] No Primary Care Physician [facility] 01-17-2025 09:25-0400 Body mass index (BMI) [Ratio] 24.9 kg/m2 No Primary Care Physician [facility] 01-17-2025 09:25-0400 Body weight 69.96 kg No Primary Care Physician [facility] 01-13-2025 13:04-0400 Body temperature 98.2 [degF] Aleida Tamirisa DO Work Phone: [facility] [employer] 01-13-2025 13:04-0400 Diastolic blood pressure 79 mm[Hg] Aleida Tamirisa DO Work Phone: [facility] [employer] 01-13-2025 13:04-0400 Heart rate 93 /min Aleida Tamirisa DO Work Phone: [facility] [employer] 01-13-2025 13:04-0400 Respiratory rate 20 /min Aleida Tamirisa DO Work Phone: [facility] [employer] 01-13-2025 13:04-0400 Systolic blood pressure 122 mm[Hg] Aleida Tamirisa DO Work Phone: [facility] [employer] 01-13-2025 07:46-0400 SaO2% (BldA) [Mass fraction] 99 % Alieda Tamirisa DO Work Phone: [facility] [employer] 01-11-2025 23:41-0400 Body height 167.6 cm Aleida Tamirisa DO Work Phone: [facility] [employer] 01-11-2025 23:41-0400 Body mass index (BMI) [Ratio] 24.86 kg/m2 Aleida Tamirisa DO Work Phone: [facility] [employer] 01-11-2025 23:41-0400 Body weight 69.85 kg Aleida Tamirisa DO Work Phone: [facility] 01-11-2025 18:29-0400 Diastolic blood pressure 56 mm[Hg] No Primary Care Physician [facility] 01-11-2025 18:29-0400 Heart rate 141 /min No Primary Care Physician [facility] 01-11-2025 18:29-0400 Systolic blood pressure 115 mm[Hg] No Primary Care Physician [facility] 01-11-2025 18:03-0400 Body temperature 98.1 [degF] No Primary Care Physician [facility] 01-11-2025 18:03-0400 Respiratory rate 16 /min No Primary Care Physician [facility] 01-11-2025 17:22-0400 SaO2% (BldA) [Mass fraction] 98 % No Primary Care Physician [facility] 01-11-2025 10:15-0400 Body height 167.64 cm No Primary Care Physician [facility] 01-11-2025 10:15-0400 Body mass index (BMI) [Ratio] 25.2 kg/m2 No Primary Care Physician [facility] 01-11-2025 10:15-0400 Body weight 70.9 kg No Primary Care Physician [facility] 01-11-2025 09:24-0400 Body height 167.64 cm No Primary Care Physician [facility] 01-11-2025 09:24-0400 Body mass index (BMI) [Ratio] 25.2 kg/m2 No Primary Care Physician [facility] 01-11-2025 09:24-0400 Body weight 70.81 kg No Primary Care Physician [facility] 01-11-2025 09:24-0400 Diastolic blood pressure 96 mm[Hg] No Primary Care Physician [facility] 01-11-2025 09:24-0400 Systolic blood pressure 144 mm[Hg] No Primary Care Physician [facility] 12-23-2024 09:25-0400 Body height 167.[address] Yudith Harper DO Work Phone: [facility] 12-23-2024 09:25-0400 Body mass index (BMI) [Ratio] 24.4 kg/m2 Dr. Yudith Harper DO Work Phone: [facility] 12-23-2024 09:25-0400 Body weight 68.[address] Yudith Harper DO Work Phone: [facility] 12-23-2024 09:25-0400 Diastolic blood pressure 87 mm[Hg] Dr. Yudith Harper DO Work Phone: [facility] 12-23-2024 09:25-0400 Systolic blood pressure 132 mm[Hg] Dr. Yudith Harper DO Work Phone: [facility] 12-16-2024 13:05-0400 Heart rate 74 /min Dr. Yudith Harper DO Work Phone: [facility] 12-16-2024 13:05-0400 SaO2% (BldA) [Mass fraction] 98 % Dr. Yudith Harper DO Work Phone: [facility] 12-16-2024 12:59-0400 Diastolic blood pressure 78 mm[Hg] Dr. Yudith Harper DO Work Phone: [facility] 12-16-2024 12:59-0400 Systolic blood pressure 114 mm[Hg] Dr. Yudith Harper DO Work Phone: [facility] 12-16-2024 12:19-0400 Body temperature 98.4 [degF] Dr. Yudith Harper DO Work Phone: [facility] 12-16-2024 12:19-0400 Respiratory rate 14 /min Dr. Yudith Harper DO Work Phone: [facility] 12-16-2024 12:15-0400 Body height 167.[address] Yudith Harper DO Work Phone: [facility] 12-16-2024 12:15-0400 Body mass index (BMI) [Ratio] 24.5 kg/m2 Dr. Yudith Harper DO Work Phone: [facility] 12-16-2024 12:15-0400 Body weight 68.[address] Yudith Harper DO Work Phone: [facility] 11-26-2024 09:45-0400 Body height 167.[address] Yudith Harper DO Work Phone: [facility] 11-26-2024 09:45-0400 Body mass index (BMI) [Ratio] 23.6 kg/m2 Dr. Yudith Harper DO Work Phone: [facility] 11-26-2024 09:45-0400 Body weight 66.[address] Yudith Harper DO Work Phone: [facility] 11-26-2024 09:45-0400 Diastolic blood pressure 86 mm[Hg] Dr. Yudith Harper DO Work Phone: [facility] 11-26-2024 09:45-0400 Systolic blood pressure 136 mm[Hg] Dr. Yudith Harper DO Work Phone: [facility] 09-27-2024 14:04-0400 Body height 167.[address] Yudith Harper DO Work Phone: [facility] 09-27-2024 14:04-0400 Body mass index (BMI) [Ratio] 21.6 kg/m2 Dr. Yudith Harper DO Work Phone: [facility] 09-27-2024 14:04-0400 Body weight 60.[address] Yudith Harper DO Work Phone: [facility] 09-27-2024 14:04-0400 Diastolic blood pressure 86 mm[Hg] Dr. Yudith Harper DO Work Phone: [facility] 09-27-2024 14:04-0400 Systolic blood pressure 119 mm[Hg] Dr. Yudith Harper DO Work Phone: [facility] 08-27-2024 10:39-0400 Body mass index (BMI) [Ratio] 21 kg/m2 Dr. Yudith Harper DO Work Phone: [facility] 08-27-2024 10:39-0400 Body weight 59.[address] Yudith Harper DO Work Phone: [facility] 08-27-2024 10:39-0400 Diastolic blood pressure 75 mm[Hg] Dr. Yudith Harper DO Work Phone: [facility] 08-27-2024 10:39-0400 Systolic blood pressure 126 mm[Hg] Dr. Yudith Harper DO Work Phone: [facility] 08-13-2024 09:05-0400 Body mass index (BMI) [Ratio] 21.3 kg/m2 Dr. Yudith Harper DO Work Phone: [facility] 08-13-2024 09:05-0400 Body weight 59.[address] Yudith Harper DO Work Phone: [facility] 08-13-2024 09:05-0400 Diastolic blood pressure 84 mm[Hg] Dr. Yudith Harper DO Work Phone: [facility] 08-13-2024 09:05-0400 Systolic blood pressure 122 mm[Hg] Dr. Yudith Harper DO Work Phone: [facility] 08-06-2024 10:46-0400 Body mass index (BMI) [Ratio] 21.3 kg/m2 Dr. Yudith Harper DO Work Phone: [facility] 08-06-2024 10:46-0400 Body weight 59.[address] Yudith Harper DO Work Phone: [facility] 08-06-2024 10:46-0400 Diastolic blood pressure 88 mm[Hg] Dr. Yudith Harper DO Work Phone: [facility] 08-06-2024 10:46-0400 Systolic blood pressure 136 mm[Hg] Dr. Yudith Harper DO Work Phone: [facility] 07-12-2024 10:47-0400 Body temperature 98.8 [degF] Obi Min APRN.MICROBIOLOGY ANALYST Work Phone: [facility] 07-12-2024 10:47-0400 Body weight 59.1 kg Obi Min APRN.MICROBIOLOGY ANALYST Work Phone: [facility] 07-12-2024 10:47-0400 Diastolic blood pressure 102 mm[Hg] Obi Min APRN.MICROBIOLOGY ANALYST Work Phone: [facility] 07-12-2024 10:47-0400 Heart rate 128 /min Obi Min APRN.MICROBIOLOGY ANALYST Work Phone: [facility] 07-12-2024 10:47-0400 Respiratory rate 20 /min Obi Min APRN.MICROBIOLOGY ANALYST Work Phone: [facility] 07-12-2024 10:47-0400 SaO2% (BldA) [Mass fraction] 99 % Obi Min APRN.MICROBIOLOGY ANALYST Work Phone: [facility] 07-12-2024 10:47-0400 Systolic blood pressure 162 mm[Hg] Obi Min APRN.MICROBIOLOGY ANALYST Work Phone: [facility] 03-08-2024 18:34-0500 Body temperature 98.01 [degF] Chase Nicole MD Work Phone: [facility] 03-08-2024 18:34-0500 Body weight 56.3 kg Chase Nicole MD Work Phone: [facility] 03-08-2024 18:34-0500 Diastolic blood pressure 80 mm[Hg] Chase Nicole MD Work Phone: [facility] 03-08-2024 18:34-0500 Heart rate 84 /min Chase Nicole MD Work Phone: [facility] 03-08-2024 18:34-0500 Respiratory rate 18 /min Chase Nicole MD Work Phone: [facility] 03-08-2024 18:34-0500 SaO2% (BldA) [Mass fraction] 98 % Chase Nicole MD Work Phone: [facility] 03-08-2024 18:34-0500 Systolic blood pressure 128 mm[Hg] Chase Nicole MD Work Phone: [facility] 01-14-2024 19:26-0400 Body temperature 102.31 [degF] Tatiana Praisler-Wood DATA COLLECTION TECHNICIAN.MICROBIOLOGY ANALYST Work Phone: [facility] 01-14-2024 19:26-0400 Body weight 55.3 kg Tatiana Praisler-Wood DATA COLLECTION TECHNICIAN.MICROBIOLOGY ANALYST Work Phone: [facility] 01-14-2024 19:26-0400 Diastolic blood pressure 87 mm[Hg] Tatiana Praisler-Wood DATA COLLECTION TECHNICIAN.MICROBIOLOGY ANALYST Work Phone: [facility] 01-14-2024 19:26-0400 Heart rate 122 /min Tatiana Praisler-Wood DATA COLLECTION TECHNICIAN.MICROBIOLOGY ANALYST Work Phone: [facility] 01-14-2024 19:26-0400 Respiratory rate 18 /min Tatiana Praisler-Wood DATA COLLECTION TECHNICIAN.MICROBIOLOGY ANALYST Work Phone: [facility] 01-14-2024 19:26-0400 SaO2% (BldA) [Mass fraction] 98 % Tatiana Praisler-Wood DATA COLLECTION TECHNICIAN.MICROBIOLOGY ANALYST Work Phone: [facility] 01-14-2024 19:26-0400 Systolic blood pressure 135 mm[Hg] Tatiana Praisler-Wood DATA COLLECTION TECHNICIAN.MICROBIOLOGY ANALYST Work Phone: [facility] Encounters Encounter Date Encounter Type Care Provider Facility Start: 04-05-2025 ambulatory No Primary Car e Physician Facility:[facility] Start: 03-10-2025 ambulatory Yudith Alanis cility:[facility] Start: 02-28-2025 End: 02-28-2025 ambulatory MD [facility] Start: 02-24-2025 End: 02-24-2025 ambulatory No Primary Care Physician Facility:[facility] Start: 02-16-2025 End: 02-16-[address] Yuidth Harper DO -[facility] Work Phone: Start: 02-16-2025 End: 02-16-2025 ambulatory No Primary Care Physician [facility] Start: 02-16-2025 End: 02-16-2025 ambulatory No Primary Care Physician Facility:[facility] Start: 02-05-2025 ambulatory No Primary Car e Physician Facility:[facility] Start: 02-05-2025 Non-patient / Non-visit Dr. Leonard Harper DO [facility] Start: 02-05-2025 End: 02-05-2025 ambulatory No Primary Care Physician -[facility] Start: 02-05-2025 End: 02-05-2025 Patient encounter procedure Mally Maldonado [facility] Work Phone: Start: 02-02-2025 End: 02-02-[address] Catie Krishnan MD -[facility] Work Phone: Start: 02-02-2025 End: 02-02-2025 ambulatory No Primary Care Physician [facility] Start: 01-31-2025 End: 01-31-2025 ambulatory YUDITH CONNOR [facility] Start: 01-27-2025 End: 01-27-[address] Catie Krishnan MD -[facility] Work Phone: Start: 01-27-2025 End: 01-27-2025 ambulatory No Primary Care Physician [facility] Start: 01-21-2025 ambulatory Mally Maldonado Facility :[facility] Start: 01-21-2025 Non-patient / Non-visit Mally Miller ms [facility] Start: 01-21-2025 End: 01-21-2025 ambulatory No Primary Care Physician -[facility] Start: 01-21-2025 End: 01-21-2025 Patient encounter procedure [facility] Work Phone: Start: 01-17-2025 End: 01-17-[address] Catie Krishnan MD -[facility] Work Phone: Start: 01-17-2025 End: 01-17-2025 ambulatory No Primary Care Physician -[facility] Start: 01-11-2025 End: 01-13-2025 ambulatory [facility] Start: 01-11-2025 End: 01-13-2025 Evaluation and management of inpatient Aleida P Tamirisa DO Work Phone: [facility] [address] Start: 01-11-2025 ambulatory Butch Escobar ity:[facility] Start: 01-11-2025 Non-patient / Non-visit Dr. Leonard Harper DO -[facility] Start: 01-11-2025 End: 01-11-2025 Patient encounter procedure Butch TAFOYA -[facility] Work Phone: Start: 01-11-2025 End: 01-11-2025 ambulatory No Primary Care Physician -[facility] Start: 12-23-2024 End: 12-23-2024 Patient encounter procedure Mally Maldonado CNM -[facility] Work Phone: Start: 12-23-2024 End: 12-23-[address] Yudith Harper DO Work Phone: -[facility] Start: 12-16-2024 ambulatory Catie Saxena lity:[facility] Start: 12-16-2024 Non-patient / Non-visit Dr. Amaury Krishnan MD -[facility] Start: 12-16-2024 End: 12-16-[address] Yudith Harper DO Work Phone: -[facility] Start: 12-16-2024 End: 12-16-[address] Catie Krishnan MD -[facility] Work Phone: Start: 11-26-2024 End: 11-26-[address] Catie Krishnan MD -[facility] Work Phone: Start: 11-26-2024 End: 11-26-[address] Yudith Harper DO Work Phone: -[facility] Start: 11-18-2024 End: 11-18-2024 ambulatory YUDITH Vora ESTUARDO [facility] Start: 09-28-2024 End: 09-28-[address] Yudith Harper DO Work Phone: [facility] Work Phone: Start: 09-28-2024 End: 09-28-2024 Patient encounter procedure Butch TAFOYA -Lab [facility] Start: 09-27-2024 End: 09-27-2024 Patient encounter procedure Butch TAFOYA -[facility] Work Phone: Start: 09-27-2024 End: 09-28-[address] Yudith Harper DO Work Phone: [facility] Work Phone: Start: 08-27-2024 End: 08-27-[address] Yudith Harper DO -[facility] Work Phone: Start: 08-27-2024 End: 08-27-[address] Yudith Harper DO -[facility] Work Phone: Start: 08-27-2024 End: 08-27-2024 ambulatory Yudith Harper Facility:[facility] Start: 08-27-2024 End: 08-27-2024 ambulatory Yudith Harper Facility:[facility] Start: 08-13-2024 End: 08-13-2024 Patient encounter procedure Mally Maldonado [facility] -[facility] Work Phone: Start: 08-13-2024 End: 08-13-2024 ambulatory Mally Maldonado Facility:[facility] Start: 08-06-2024 End: 08-06-2024 Patient encounter procedure Mally Maldonado [facility] Work Phone: Start: 08-06-2024 End: 08-06-2024 ambulatory Mally Maldonado Facility:[facility] Start: 08-02-2024 End: 08-02-2024 Emergency department patient visit EDIS Liudmila [facility] Start: 07-12-2024 End: 07-12-2024 ambulatory Facility:[facility] Start: 07-12-2024 End: 07-12-2024 Patient encounter procedure Obi Min APRN.MICROBIOLOGY ANALYST Work Phone: [facility] Comment on above: Sore throat (Primary Dx); URI, acute Start: 03-08-2024 End: 03-08-2024 ambulatory Facility:[facility] Start: 03-08-2024 End: 03-08-2024 Office outpatient visit 25 minutes Chase Nicole MD Work Phone: [facility] Comment on above: Acute non-recurrent sinusitis, unspecified location (Primary Dx) Start: 01-15-2024 End: 01-15-2024 Telephone encounter Obi Min APRN.MICROBIOLOGY ANALYST Work Phone: [facility] Comment on above: Results Start: 01-14-2024 End: 01-14-2024 ambulatory Facility:[facility] Start: 01-14-2024 End: 01-14-2024 Patient encounter procedure Tatiana Cisneros APRN.MICROBIOLOGY ANALYST Work Phone: [facility] Comment on above: Viral URI with cough (Primary Dx) Procedures Date Procedure Procedure Detail Performing Clinician Start: 02-05-2025 Urnls dip stick/tabl et reagent auto microscopy No Primary Care Physician Start: 01-21-2025 Estimated creatinine clearance No Primary Care Physician Start: 01-13-2025 Glucose quantitative blood xcpt reagent strip Mona Hughes DO Work Phone: Start: 01-13-2025 Glucose quantitative blood xcpt reagent strip Mona Hughes DO Work Phone: Start: 01-13-2025 Comprehensive metabo lic panel Mona Hughes DO Work Phone: Start: 01-12-2025 Glucose quantitative blood xcpt reagent strip Mona Hughes DO Work Phone: Start: 01-12-2025 Glucose quantitative blood xcpt reagent strip Mona Hughes DO Work Phone: Start: 01-12-2025 Antibody toxoplasma igm Mona Hughes DO Work Phone: Start: 01-12-2025 Creatinine other source Mona Hughes DO Work Phone: Start: 01-12-2025 Glucose quantitative blood xcpt reagent strip Mona Hughes DO Work Phone: Start: 01-12-2025 Us preg uterus after 1st trimest 04/28 gestation Kenton Booker DO Work Phone: Start: 01-12-2025 Glucose quantitative blood xcpt reagent strip Mona Hughes DO Work Phone: Start: 01-11-2025 End: 01-11-2025 Iadna chlamydia trachomatis amplified probe tq Kenton Booker DO Work Phone: Start: 01-11-2025 Antibody screen JENNIFER BENTLEY Comment on above: Performed By: #### L [id number] ####[employer]: QUEENIE CASTRO ([phone])[facility] ([facility])[address] [place] [address] Start: 01-11-2025 ABO and Rh group [Ty pe] in Blood by Confirmatory method Kenton Booker DO Work Phone: Start: 01-11-2025 End: 01-11-2025 Blood typing serologic abo Kenton Caitlinjamila Booker DO Work Phone: Start: 01-11-2025 URINE HOLD CUP Kenton Booker DO Work Phone: Start: 01-11-2025 Ecg routine ecg w/le ast 12 lds trcg only w/o i&r Kenton Booker DO Work Phone: Start: 01-11-2025 End: 01-11-2025 Urnls dip stick/tablet reagent auto microscopy No Primary Care Physician Start: 01-11-2025 Neisseria gonorrhoea e DNA [Presence] in Cervical mucus by ENRIQUE with probe detection Mona Hughes DO Work Phone: Start: 01-11-2025 Urine culture No Primar y Care Physician Start: 01-11-2025 Estimated creatinine clearance No Primary Care Physician Start: 01-11-2025 Ultrasound scan for growth No Primary Care Physician Start: 01-11-2025 Ultrasonography of abdomen No Primary Care Physician Start: 01-11-2025 Serologic test for syphilis No Primary Care Physician Start: 01-11-2025 Adult depression scr eening assessment Aleida Tamirisa DO Work Phone: Start: 12-16-[address] Yudith Harper DO Work Phone: Start: 12-11-2024 Immunoassay infectio us agent antibody bhupendra nos Mona Balbuenae DO Work Phone: Start: 09-28-2024 Hepatitis C antibody measurement Dr. Yudith Harper DO Work Phone: Comment on above: Reactive: Presumptiv e evidence of antibodies to HCV. Follow CDC recommendations for supplemental testing.Non-Reactive: Antibodies to HCV were not detected; does not exclude the possibility of exposure to HCVReactive Results are presumptive evidence of antibodies to HCV. Follow CDC recommendations for supplemental testing.Order confirmation testing: HCV Quant by PCR testing - HCVPCR #[id number] Non Reactive: < 0.8 Equivocal: >/= 0.8 to < 1.0 Reactive: >/= 1.0The CDC requires that a reactive/equivocal HCV antibody result be sent out for confirmation. HCV Quant by PCR testing. Start: 09-28-[address] Edmund Harper DO Work Phone: Start: 09-28-[address] Yudith Harper DO Work Phone: Comment on above: Antibody Result: Int erpretationNon-Reactive: Non- ImmuneReactive: ImmuneThe following results were obtained with the [employer] Rubella IgG assay. Results from assays of other manufacturers cannot be used interchangeably. Start: 09-28-2024 Serologic test for syphilis Dr. Yudith Harper DO Work Phone: Start: 08-27-2024 Liquid based cervica l cytology screening Dr. Yudith Harper DO Work Phone: Comment on above: NEGATIVE FOR INTRAEP ITHELIAL LESION OR MALIGNANCY. This liquid based Th inPrep(R) pap test was screened withthe use of an image guided system. The HPV DNA reflex c riteria were not met with this specimenresult therefore, no HPV testing was performed.Performed at: [address] [id number] Director: Suma Alegria MD, Phone: [phone] Start: 08-27-[address] Abigail Harper DO Work Phone: Start: 08-02-2024 Urinalysis EDIS BROOKS Comment on above: Result Comment: URIN ALYSIS Performed By: #### [id number] #### [facility],[address] [place] [address] Start: 07-12-2024 STREP A MOLECULAR (POC) Yulisa Franz APRN.CNP Work Phone: Plan of Treatment Date Care Activity Detail Author Start: 2050 Zoster Vaccines (1 of 2) Zoste r Vaccines (1 of 2) [facility] Start: 01-11-2026 Depression Screening Depression Scre ening [facility] Start: 02-24-2025 End: 02-24-2025 Patient encounter procedure -[facility] Work Phone: Start: 02-16-2025 End: 02-16-2025 Patient encounter procedure -[facility] Work Phone: Start: 02-08-2025 RSV Immunization for Adults (1 - Risk 1-dose series) RSV Immunization for Adults (1 - Risk 1-dose series) [facility] Start: 02-05-2025 Nonstress test [facility] Start: 02-05-2025 End: 02-05-2025 [facility] Start: 02-05-2025 Obstetric monitoring [facility] Start: 02-05-2025 Vital signs measurements [facility] Start: 01-27-[address] [facility] Start: 01-21-2025 Non-patient / Non-visit Non-pa tient / Non-visit -[facility] Start: 01-21-2025 Nonstress test [facility] Start: 01-21-2025 Obstetric monitoring [facility] Start: 01-21-2025 Vital signs measurements [facility] Start: 01-21-[address] [facility] Start: 01-21-2025 End: 01-21-2025 Patient encounter procedure Elevated blood pressure affecting in second trimester, antepartum -[facility] Work Phone: Start: 01-21-2025 Patient discharge [facility] Start: 01-11-2025 End: 01-11-2025 [facility] Start: 01-11-2025 Bacteria identified in Urine by Culture Urine Culture [facility] Start: 01-11-2025 Golimumab therapy THER/PROPH/D IAG INJ SC/IM [facility] Start: 01-11-2025 Intravenous infusion THER/PROP H/DIAG IV INF INIT [facility] Start: 01-11-2025 Iv infusion therapy prophylaxis/dx ea hour THER/PROPH/DIAG IV INF ADDON [facility] Start: 01-11-2025 Medication administr ation: subcutaneous THER/PROPH/DIAG INJ SC/IM [facility] Start: 01-11-2025 Ther proph/dx njx ea seql iv push sbst/drug fac TX/PRO/DX INJ SAME DRUG DETECTIVE CHIEF [facility] Start: 01-11-2025 Vedolizumab therapy THER/PROPH /DIAG IV INF INIT [facility] Start: 01-11-2025 Fluid restriction [facility] Start: 01-11-2025 Nonstress test [facility] Start: 01-11-2025 Obstetric monitoring [facility] Start: 01-11-2025 Vital signs measurements [facility] Start: 01-11-2025 Comprehensive metabo lic 2000 panel - Serum or Plasma [facility] Start: 01-11-2025 Protein/Creatinine [ Ratio] in Urine [facility] Start: 01-11-2025 CBC W Auto Different ial panel - Blood [facility] Start: 01-11-2025 Measurement of gluco se 2 hours after glucose challenge for glucose tolerance test [facility] Start: 01-11-2025 Serologic test for syphilis [facility] Start: 01-11-2025 End: 01-11-2025 [facility] Start: 12-27-2024 COVID-19 Vaccine ( season) COVID-19 Vaccine ( season) [facility] Start: 12-27-2024 Influenza vaccination Influenza Vacc ine (#1) [facility] Start: 12-16-2024 Nonstress test [facility] Start: 12-16-2024 Obstetric monitoring [facility] Start: 12-16-2024 Vital signs measurements [facility] Start: 12-16-[address] [facility] Start: 12-28-2023 Covid-19 Vaccine ( season) Covid-19 Vaccine ( season) [facility] Start: 12-28-2023 Covid-19 Vaccine ( season) Covid-19 Vaccine ( season) [facility] Start: 12-28-2023 Influenza vaccination Influenza Vacc ine (#1) [facility] Start: 2021 Screening for malign ant neoplasm of cervix [facility] Start: 12-10-2019 DTaP/Tdap/Td Vaccine s (1 - Tdap) DTaP/Tdap/Td Vaccines (1 - Tdap) [facility] Start: 12-10-2019 Hepatitis B Vaccine (1 of 3 - 19+ 3-dose series) Hepatitis B Vaccine (1 of 3 - 19+ 3-dose series) [facility] Start: 12-10-2019 Hepatitis B Vaccines (1 of 3 - 19+ 3-dose series) Hepatitis B Vaccines (1 of 3 - 19+ 3-dose series) [facility] Start: 12-10-2019 Urine microalbumin profile DTa P,Tdap,Td Vaccine (1 - Tdap) [facility] Start: 2018 Anxiety Screening Anxiety Screening [facility] Start: 2018 Depression Screening Depression Scre ening [facility] Start: 2018 GC (Gonorrhea) Scree rneetta () GC (Gonorrhea) Screening () [facility] Start: 2018 Hepatitis C screening Hepatitis C Sc reening [facility] Start: 2018 HIV screening HIV Screening [facility] Start: 2018 Screening for Chlamy leticia trachomatis Chlamydia Screening () [facility] Start: 2016 Meningococcal B Vacc ine (1 of 2 - Standard) Meningococcal B Vaccine (1 of 2 - Standard) [facility] Start: 2016 Meningococcal B Vacc ine: Consider Based On Risk (1 of 2 - Patient Seeks Protection) Meningococcal B Vaccine: Consider Based On Risk (1 of 2 - Patient Seeks Protection) [facility] Start: 12-10-2015 HPV Vaccine (1 - 3-d ose series) HPV Vaccine (1 - 3-dose series) [facility] Start: 12-10-2015 HPV Vaccines (1 - 3- dose series) HPV Vaccines (1 - 3-dose series) [facility] Start: 2014 Peds To Adult Transi tion Annual Assessment Peds To Adult Transition Annual Assessment [facility] Start: 2013 Varicella vaccination Varicell a Vaccines (1 of 2 - 13+ 2-dose series) [facility] Start: 2012 Peds To Adult Transi tion Initial Discussion Peds To Adult Transition Initial Discussion [facility] Start: 2001 MMR Vaccines (1 of 1 - Standard series) MMR Vaccines (1 of 1 - Standard series) [facility] Alanine aminotransfe rase [Enzymatic activity/volume] in Serum or Plasma [facility] Alanine aminotransfe rase [Enzymatic activity/volume] in Serum or Plasma [facility] Albumin [Mass/volume ] in Serum or Plasma [facility] Albumin [Mass/volume ] in Serum or Plasma [facility] Alkaline phosphatase [Enzymatic activity/volume] in Serum or Plasma [facility] Alkaline phosphatase [Enzymatic activity/volume] in Serum or Plasma [facility] Anion gap in Serum o r Plasma [facility] Anion gap in Serum o r Plasma [facility] Bilirubin, total measurement [facility] Bilirubin, total measurement [facility] BUN/Creatinine ratio [facility] BUN/Creatinine ratio [facility] Calcium [Mass/volume ] in Serum or Plasma [facility] Calcium [Mass/volume ] in Serum or Plasma [facility] Carbon dioxide, tota l [Moles/volume] in Central venous blood [facility] Carbon dioxide, tota l [Moles/volume] in Central venous blood [facility] CBC W Auto Different ial panel - Blood [facility] End: 01-12-2025 CMV Ab [facility], IgG & [facility] Work Phone: Comment on above: Once (Lab) for 1 Occ urrences starting 01/12/2025 until 01/12/2025 Collect duration Time Ur [facility] Comprehensive metabo lic 2000 panel - Serum or Plasma [facility] COVID & INFLUENZA A/ B & RSV PCR, ROUTINE COVID & INFLUENZA A/B & RSV PCR, ROUTINE Microbiology Routine Viral URI with cough Ordered: 01/14/2024 [facility] Work Phone: Comment on above: Ordered: 01/14/2024 Creatine measurement [facility] Creatinine [Mass/vol ume] in Serum or Plasma [facility] Creatinine [Mass/vol ume] in Serum or Plasma [facility] Creatinine [Mass/vol ume] in Urine [facility] Creatinine [Mass/vol ume] in Urine collected for unspecified duration [facility] Creatinine renal kaila arance in 24 hour Urine and Serum or Plasma [facility] Erythrocyte mean corpuscular volume determination [facility] Erythrocyte mean corpuscular volume determination [facility] Glucose [Mass/volume ] in Serum or Plasma [facility] Glucose [Mass/volume ] in Serum or Plasma [facility] Hematocrit [Volume Fraction] of Blood [facility] Hematocrit [Volume Fraction] of Blood [facility] Hemoglobin [Mass/vol ume] in Blood [facility] Hemoglobin [Mass/vol ume] in Blood [facility] Hepatitis C antibody measurement [facility] Leukocytes [#/volume ] in Blood [facility] Leukocytes [#/volume ] in Blood [facility] Mean corpuscular hemoglobin concentration determination [facility] Mean corpuscular hemoglobin concentration determination [facility] Mean corpuscular hemoglobin determination [facility] Mean corpuscular hemoglobin determination [facility] Measurement of renal function [facility] Measurement of renal function [facility] Neutrophil count [facility] Neutrophil count [facility] Neutrophil percent differential count [facility] Neutrophil percent differential count [facility] Nonstress test nonstress test Procedures Routine 01/12/2025 6:09 AM EDT [facility] [employer] Patient Education [facility] Work Phone: Platelets [#/volume] in Blood [facility] Platelets [#/volume] in Blood [facility] Potassium measurement [facility] Potassium measurement [facility] Procedure [facility] Protein [Mass/time] in 24 hour Urine [facility] Protein [Mass/volume ] in 24 hour Urine [facility] Protein [Mass/volume ] in Urine [facility] Protein measurement, urine, quantitative 24 hour [facility] Protein/Creatinine [ Mass Ratio] in Urine [facility] Red blood cell count [facility] Red blood cell count [facility] Red cell distributio n width determination [facility] Red cell distributio n width determination [facility] Rubella IgG measurement [facility] Serologic test for syphilis [facility] Serum chloride measurement [facility] Serum chloride measurement [facility] End: 01-11-2025 sflt-1/plgf - Miscellaneous Test [facility] [employer] Work Phone: Comment on above: STAT (Lab) for 1 [facility] urrences starting 01/11/2025 until 01/11/2025 Sodium measurement [facility] Sodium measurement [facility] Total protein measurement [facility] Total protein measurement [facility] End: 01-12-2025 Toxoplasma gondii antibody, IgG [facility] Comment on above: Once (Lab) for 1 Occ urrences starting 01/12/2025 until 01/12/2025 Urea nitrogen [Mass/volume] in Serum or Plasma [facility] Urea nitrogen [Mass/volume] in Serum or Plasma [facility] Urine culture [facility] Urine sample volume measurement [facility] P[place] Date Payer Category Payer Commercial Managed C are - HMO MMO SUPERMED [id number] 2024 Unknown [id number] 2024 Medicaid [id number] 2024 Unknown [id number] 2024 Self-pay 2023 [employer] [facility] BLUE CARD PPO OOS [id number] 2023 Unknown [employer] BLUE CARD PPO OOS [id number] 2023-Present [phone] [id number] [place] [address] PPO [id number] 2023 Unknown [id number] 2000 Unknown [id number] 2000 Unknown [id number] 479 2000 Unknown [id number]. 479 2000 Unknown [id number] 479 Private Health Insurance . Unknown [id number] 462 Unknown [id number]. 462 Unknown [id number]. 462 Unknown [id number]. 462 Unknown [id number]. 462 Unknown [id number]. 462 Unknown [id number]. 462 Unknown [id number] [id number]. 462 Unknown [id number] 2.16.840.1.188028.3.579.2. 462 Unknown [id number] 2.16.840.1.554199.3.579.2. 462 Unknown [id number] 2.16.840.1.765078.3.579.2. 462 Unknown [id number] 2.16.840.1.203538.3.579.2. 462 Unknown [id number] 2.16.840.1.663396.3.579.2. 462 Unknown [id number] 2.16.840.1.646114.3.579.2. 462 Unknown [id number] 2.16.840.1.171092.3.579.2. 462 Unknown [id number] 2.16.840.1.264188.3.579.2. 462 Unknown [id number] 2.16.840.1.363088.3.579.2. 462 Unknown [id number] 2.16.840.1.357786.3.579.2. 462 Unknown [id number] 2.16.840.1.068363.3.579.2. 462 Unknown [id number] 2.16.840.1.212892.3.579.2. 462 Unknown [id number] 2.16.840.1.267826.3.579.2. 462 Unknown [id number] 2.16.840.1.886093.3.579.2. 462 Unknown [id number] 2.16.840.1.146911.3.579.2. 462 Unknown [id number] 2.16.840.1.979473.3.579.2. 462 Unknown [id number] 2.16840.1.586909.3.579.2. 462 Unknown [id number] 2.16840.1.013426.3.579.2. 462 Social History Date Type Detail Facility Start: 01-14-2024 End: 08-27-2024 Tobacco smoking status NHIS Never smoked tobacco [facility] Start: 01-14-2024 End: 01-11-2025 Tobacco use and exposure Smokeless tobacco non-user [facility] Start: 01-14-2024 End: 01-11-2025 History of Social function [facility] Start: 01-14-2024 End: 01-11-[address] [facility] Start: 2000 Sex assigned at Not on file [facility] Start: 2000 Sex Assigned At Female [facility] Start: 01-11-2025 Alcoholic beverage intake Life time non-drinker (finding) [facility] Has the electric, [employer], oil, or water company threatened to shut off services in your home in past 12Mo No [facility] (I/We) worried whe er (my/our) food would run out before (I/we) got money to buy more. Never true [facility] In the past 12 month s, has lack of transportation kept you from medical appointments or from getting medications? No [facility] Start: 07-13-2024 [facility] Start: 01-11-2025 Sex Female (finding) [facility] Functional Status Date Assessment Result Facility 01-11-2025 Patient Health Questionnaire 2 item (PHQ- 2) [Reported] [facility] Clinical Notes 01-14-2024 to 02-16-2025 Quincy Farias RN - 01/13/2025 6:40 PM EDTQuincy Farias RN - 01/13/2025 6:40 PM Roger Hughes DO - 01/13/2025 6:26 PM EDTDischasandra Quinteros - 01/13/2025 2:59 PM EDT Note Date & Type Note Facility 02-16-2025 Progress note [facility] 02-05-2025 History and physi roverto note [facility] 02-02-2025 Progress note [facility] 01-27-2025 Progress note [facility] 01-21-2025 Progress note [facility] 01-17-2025 Progress note [facility] 01-13-2025 Nurse Note Discharge instructions given to the patient at this time. labor precautions reviewed. Patient will follow up with her own physician in [place]. IV removed. Patient discharged to home ambulatory, accompanied by . [facility] 01-13-2025 Nurse Note Discharge instructions given to the patient at this time. labor precautions reviewed. Patient will follow up with her own physician in [place]. IV removed. Patient discharged to home ambulatory, accompanied by . documented in this encounter [facility] 01-13-2025 Note Department of Obstet rics and Gynecology MF Discharge Summary Admission on 01/11/2025 8:11 PM Leonro Hager is a 24 y.o. at 28w2d who presented to Labor and Delivery for threatened labor. She was directed to go to OB Triage at an OSH for further evaluation. She reported feeling lightheaded pain. She was also having contractions at that time and found to be 1 cm dilated. She received a dose of BMZ and was started on magnesium sulfate for neuroprotection. She was transferred to [facility] for higher level of NICU care. Received BMZx2 01/11-01/12 and had BGTs trended through steroid window. BPP/ Growth 01/12: 8/8, EFW 1168g (50%), AC 22%, Right lateral ventriculomegaly measuring 15 mm, however imaging was suboptimal due to position, SEEMA wnl. 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 Remained stable without further cervical change and was discharged home for follow up with [facility]. Meds: Medication List CONTINUE taking these medications 1 PO Discharge to: Home Discharge date: 01/13 Discharge Dx: tPTL Follow up appointment with your doctor/metal bonding helper - Call MFM to schedule US (prefers [place] office for US and virtual visit for MFM consult). Labs pending: CMV, toxo, SFLT:PlGF Activity - Normal Activity Call your doctor/metal bonding helper if you have: - leaking fluid - vaginal bleeding - regular contractions: More than 6 contractions in one hour - decreased movement - worsening abdominal (belly) pain - headache, blurry vision, increased swelling, upper abdominal pain Haley Davila MD 01/13/2025 6:27 PM [facility] 01-13-2025 Hospital course Narrative Images from the original note were not included. Department of Obstetrics and Gynecology MFM Discharge Summary Admission on 01/11/2025 8:11 PM Leonor Hager is a 24 y.o. at 28w2d who presented to Labor and Delivery for threatened labor. She was directed to go to OB Triage at an OSH for further evaluation. She reported feeling lightheaded pain. She was also having contractions at that time and found to be 1 cm dilated. She received a dose of BMZ and was started on magnesium sulfate for neuroprotection. She was transferred to [facility] for higher level of NICU care. Received BMZx2 01/11-01/12 and had BGTs trended through steroid window. BPP/ Growth 01/12: 8/8, EFW 1168g (50%), AC 22%, Right lateral ventriculomegaly measuring 15 mm, however imaging was suboptimal due to position, SEEMA wnl. 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 Remained stable without further cervical change and was discharged home for follow up with [facility]. Meds: Medication List CONTINUE taking these medications 1 PO Discharge to: Home Discharge date: 01/13 Discharge Dx: tPTL Follow up appointment with your doctor/metal bonding helper - Call MFM to schedule US (prefers [place] office for US and virtual visit for MFM consult). Labs pending: CMV, toxo, SFLT:PlGF Activity - Normal Activity Call your doctor/metal bonding helper if you have: - leaking fluid - vaginal bleeding - regular contractions: More than 6 contractions in one hour - decreased movement - worsening abdominal (belly) pain - headache, blurry vision, increased swelling, upper abdominal pain Haley Davila MD 01/13/2025 6:27 PM documented in this encounter [facility] 01-13-2025 Hospital Discharg e instructions Haley Davila MD - 01/13/2025 6:26 PM EDT Follow up appointment with your doctor/metal bonding helper - Call [facility] to schedule ultrasound and virtual visit Activity - Normal Activity Call your doctor/metal bonding helper if you have: - leaking fluid - vaginal bleeding - regular contractions: More than 6 contractions in one hour - decreased movement - worsening abdominal (belly) pain - headache, blurry vision, increased swelling, upper abdominal pain If you are going home with contractions that are uncomfortable/painful- we recommend these coping strategies: rhythmic breathing, hydrotherapy, imagery or visualization, gentle massage, walking and changing your position. Treatment Verification: Leonor Hager was assessed on Labor and Delivery for a related visit on 01/13/25 . Haley Davila MD [facility] documented in this encounter [facility] 01-13-2025 History of Presen t illness Narrative Nutrition rescreen completed. Patient assigned a level 1. Images from the original note were not included. Maternal Medicine Service Resident Progress Note 01/13/2025 5:57 AM 01/11/2025 Hospital Day: 3 Leonor Hager, 24 y.o. 28w2d Patient has been seen and examined. Pt sleeping comfortably this morning. Allowed to sleep. Vitals: 01/12/25 1535 01/12/25 1609 01/12/25 2013 01/13/25 0107 BP: 129/82 137/84 106/62 Pulse: 82 85 81 89 Resp: Temp: 36.9 C (98.4 F) 37.1 C (98.7 F) 36.5 C (97.7 F) TempSrc: Oral Temporal Temporal SpO2: 98% 97% Weight: Height: Physical Exam: Gen: NAD, sleeping Medications: Current Medications[1] Assessment/Plan: Leonor Hager is a 24 y.o. female 28w2d Threatened Labor - Patient was transport from [place] due to blood pressure concerns while experiencing contractions and found to be one centimeter dilated on cervical exam - Vitals are stable overnight, normotensive. No questions or concerns - FHT Cat I overnight - BMZ x2 01/11-, Bgts trended through steroid window - If concerns for progression of labor consider restarting magnesium sulfate infusion - NICU consulted - Can consider discharge today pending status and symptoms Abnormal US - BPP/ Growth 01/12: 8/8, EFW 1168g (50%), AC 22%, Right lateral ventriculomegaly measuring 15 mm, however imaging was suboptimal due to position, SEEMA wnl. 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 - CMV, Toxo labs pending Chronic HTN - Patient reports elevated blood pressure since early - Not on medications - Normotensive overnight - UPC negative 01/12 - Repeat labs pending - sflt-1/plgf pending Factor V Leiden - Mother and Grandmother with hx of blood clots, no personal history - Not on anticoagulation Fibromyalgia - No current medications Tachycardia-resolved - Tachycardic to 120-130s on admission - EKG showing sinus rhythm - asymptomatic, not tachycardic since admission IUP @ 28w2d - Dating by LMP - Cephalic 01/12 - Monitoring:CEFM - Diet:General - BMZ x1 on 01/11 Further plan pending d/w attending. Tonie Gregory 01/13/2025, 5:57 AM Jarocho Head MD [1] Current Facility-Administered Medications Medication Dose Route Frequency Provider Last Rate Last Admin acetaminophen (Tylenol) tablet 650 mg 650 mg Oral q4h PRN Kenton Booker DO 650 mg at 01/12/25 2153 calcium gluconate 10 % injection 1 g 1 g IntraVENous PRN Kenton Booker DO influenza vaccine tiss-cult subunt (Flucelvax) STANDARD-DOSE injection 0.5 mL 0.5 mL IntraMUSCular Once Kenton Booker DO ondansetron ODT (Zofran-ODT) disintegrating tablet 4 mg 4 mg Oral q8h PRN Kenton Booker DO Or ondansetron (Zofran) injection 4 mg 4 mg IntraVENous q6h PRN Kenton Booker DO vitamin tablet 1 tablet Oral Daily Kenton Booker DO 1 tablet at 01/12/25 0929 sodium chloride 0.9 % infusion 5-250 mL/hr IntraVENous PRN Kenton Booker DO sodium chloride 0.9% (NS) flush 10 mL 10 mL IntraVENous 2 times per day Kenton Booker DO 10 mL at 01/12/25 2201 sodium chloride 0.9% (NS) flush 10 mL 10 mL IntraVENous PRN Kenton Booker DO Cosigned by Mona Hughes DO at 01/13/2025 8:33 PM EDT Associated attestation - Mona Hughes DO - 01/13/2025 8:33 PM EDT Hospital Care (Present): I was present with the MFM resident during my history and exam. I discussed the case with the resident and agree with the findings and plan as documented in the resident's note. . 24 y.o. yo at 28w2d hospital day 0 with: Patient Active Problem List Diagnosis Threatened labor, antepartum Stable PTL - no further cervical dilations. Rare contraction (felt one today). heart rate tracing reassuring. Normal BP. NEWELL resolved. ventriculomegaly suspected, however US image suboptimal due to position. Follow-up US in 1 week. Labs pending: CMV IgG, IgM, toxo IgG, sflt:plgf. Stable for DC to home. Preeclampsia precautions and PTL precautions reviewed. Chart review and preparation: 10 minutes. Face to face: 12 minutes. Documentation and care coordination: 8 minutes. Total time spent on patient care today: 30 minutes. Images from the original note were not included. Maternal Medicine Service Resident Progress Note 01/12/2025 6:03 AM 01/11/2025 Hospital Day: 2 Leonor Hager, 24 y.o. 28w1d Patient has been seen and examined. No questions or concerns. Mentions she has felt 1 contraction overnight, movement is at baseline, no vaginal bleeding or abnormal discharge. She did have a headache that was treated with Tylenol and otherwise denies chest pain, trouble breathing, visual changes. Vitals: 01/11/25 2040 01/11/25 2047 01/11/25 2341 01/12/25 0425 BP: 116/80 119/75 Pulse: (!) 131 98 91 Resp: 18 18 Temp: 36.9 C (98.5 F) 36.9 C (98.5 F) TempSrc: Temporal Temporal SpO2: 100% 98% 97% Weight: 69.9 kg (154 lb) 69.9 kg (154 lb) Height: 1.676 m (5' 6") 1.676 m (5' 6") Physical Exam: Gen: NAD HEENT: Normocephalic, Atraumatic, EOMI, MMM Resp: Lungs clear to auscultation bilaterally, no increased work of breathing Card: Regular rate Abd: Gravid Medications: Current Medications[1] Assessment/Plan: Leonor Hager is a 24 y.o. female 28w1d Threatened Labor - Patient presented to outside facility due to blood pressure concerns, however was found to be nelli and cervical exam revealed 1 cm dilated cervix - Patient was given 1 dose of Celestone, started on magnesium infusion for benefit, and transferred to [facility] unit - No questions or concerns overnight, has felt 1 contraction overnight - Vitals are stable, normotensive - BMZ x 2 on 01/12 - Status post magnesium sulfate infusion for neuroprotection, can restart if concerns for progression of labor - GBS unknown, defer PCN in setting of no cervical change since, to start if change in clinical status or patient becomes more uncomfortable - NICU consulted - CEFM overnight - Growth and biophysical profile ordered for this morning - No current contraindications to vaginal delivery Chronic HTN - Patient reports elevated Bps since early - Not on medications - BP normotensive on admission - Labs at OSH unremarkable for progression of disease - Had a headache this morning that was treated with Tylenol - sflt-1/plgf on admission pending Factor V Leiden -Tested due to mother and grandmother having hx of blood clots -Patient has not had personal hx of clots -Not currently on anticoagulation Fibromyalgia -No current medications Tachycardia - resolved - Patient was tachycardic to 120-130s on admission - EKG revealed sinus rhythm - Patient not tachycardic on rounds this morning, asymptomatic IUP @ 28w1d - Dating by LMP - Cephalic on 01/11 - Monitoring: CEFM - Diet: General - BMZ x1 on 01/11 Further plan pending d/w attending. Jarocho Head MD 01/12/2025, 6:03 AM Please note that all or parts of this documentation was dictated using [employer] voice recognition software. As a result, errors may occur. When identified, these errors have been corrected. While every attempt is made to correct errors during dictation, errors may still exist. [1] Current Facility-Administered Medications Medication Dose Route Frequency Provider Last Rate Last Admin acetaminophen (Tylenol) tablet 650 mg 650 mg Oral q4h PRN Kenton Booker DO 650 mg at 01/12/25 0431 betamethasone acetate-betamethasone sodium phosphate (Celestone) injection 12 mg 12 mg IntraMUSCular Once Kenton Booekr, DO calcium gluconate 10 % injection 1 g 1 g IntraVENous PRN Kenton Booker DO influenza vaccine tiss-cult subunt (Flucelvax) STANDARD-DOSE injection 0.5 mL 0.5 mL IntraMUSCular Once Kenton Booker DO ondansetron ODT (Zofran-ODT) disintegrating tablet 4 mg 4 mg Oral q8h PRN Kenton Booker DO Or ondansetron (Zofran) injection 4 mg 4 mg IntraVENous q6h PRN Kenton Booker, DO vitamin tablet 1 tablet Oral Daily Kenton Booker, sodium chloride 0.9 % infusion 5-250 mL/hr IntraVENous PRN Kenton Booker, sodium chloride 0.9% (NS) flush 10 mL 10 mL IntraVENous 2 times per day Kenton Booker DO sodium chloride 0.9% (NS) flush 10 mL 10 mL IntraVENous PRN Kenton Booker DO Cosigned by Mona Hughes DO at 01/12/2025 1:57 PM EDT Associated attestation - Mona Hughes DO - 01/12/2025 1:57 PM EDT Hospital Care (Present): I was present with the M resident during my history and exam. I discussed the case with the resident and agree with the findings and plan as documented in the resident's note. Admission on 01/11/2025 Component Date Value Ref Range Status Trichomonas vaginalis 01/11/2025 Not Detected Not Detected Final N gonorrhoeae, DNA Probe 01/11/2025 Not Detected Not Detected Final Chlamydia, DNA Probe 01/11/2025 Not Detected Not Detected Final ABO Grouping 01/11/2025 B Final Antibody Screen 01/11/2025 NEG Final Rh Type 01/11/2025 POS Final Extra Tube 01/11/2025 Hold for add-ons. Final Auto resulted. Heart Rate 01/11/2025 94 bpm Final QRSD Interval 01/11/2025 77 ms Final QT Interval 01/11/2025 365 ms Final QTC Interval 01/11/2025 458 ms Final P Hathorne 01/11/2025 60 degrees Final QRS H[place]orne 01/11/2025 63 degrees Final T Wave Hathorne 01/11/2025 13 degrees Final IA Interval 01/11/2025 157 ms Final ABO Grouping 01/11/2025 B Final Rh Type 01/11/2025 POS Final Rubella IgG Scr 12/11/2024 NR Final HIV-1/HIV-2 Ab 01/11/2025 Negative Final C. TRACHOMATIS RNA 01/11/2025 Negative Final N. GONORRHOEAE RNA 01/11/2025 Negative Final HEPATITIS C ANTIBODY 01/11/2025 NR Final External Hepatitis B Surface Ag 01/11/2025 Negative Negative, None Detected Final Rubella IgG Scr 01/11/2025 NR Final Glucose 01/12/2025 116 (H) 70 - 100 mg/dL Final Glucose 01/12/2025 130 (H) 70 - 100 mg/dL Final Transport form Dr. Rincon, [facility]. Had presented for her Glucola screen. Will request results. Developed a headache and epigastric pain. Also noted to hav CTXs and was 1 cm dilated. No LOF, VB. 24 y.o. yo at 28w1d hospital day 1 with: Patient Active Problem List Diagnosis Threatened labor, antepartum - stable and asymptomatic off tocolytics at this time. Continue to follow closely. CHTN - reports increased Bps at home, 130-150/90-low 100s. - Normotensive currently - Never on anithypertensive therapy - Frontal NEWELL resolved yesterday. Now mild NEWELL again (08/05). Declines Tylenol at this time. - UPC ordered, CBC, CMP scheduled for tomorrow. - SFLT-PLFG pending ventriculomegaly (new finding today). 15mm, although suboptimal evaluation due to position. - Per pt report NIPT low risk, result requested from OB office. - No additional concerns on ultrasound. - CMV and toxo IgG and IgM ordered. - Will follow-up in 1-2 weeks. Chart review and preparation: 15 minutes. Face to face: 14 minutes. Documentation and care coordination: 15 minutes. Total time spent on patient care today: 44 minutes. documented in this encounter [facility] 01-12-2025 Progress note Formatting of t his note might be different from the original. Date: 01/12/2025 Name: Leonor Hager : 2000 [facility] Patient Information Primary Caregiver: Self Accompanied by/Relationship: S/O;Family Marital Status: Support System: SO/Family Hinduism/Cultural Factors: None Activities of Daily Living Communication: See demographics Living Arrangements Current Residence: Private residence Lives With: S/O; Family Support System: S/O; Family Income Information Income Source: Not Employed Financial Resource Strain How hard is it for you to pay for the very basics like food, housing, medical care and heating? N/A Housing Stability In the last 12 months, was there a time when you did not have a steady place to sleep or slept in a chcf (including now)? No Transportation Needs Has the lack of Transportation kept you from medical appointments? No In the past 12 months, has the lack of transportation kept you from meetings, work, or from getting things needed for daily living? No Food Insecurity Within the past 12 months, have you worried that your food would run out before you got the money to buy more? No Stress Do you feel stress - tense, restless, nervous, or anxious, or unable to sleep at night because you mind is troubled all the time? Mood stable Referral To Financial Resources: N/A Community Resources: PNU folder given upon admission to PNU Unit Social Work: N/A CLP: N/A Medical Information 24 year old admitted for threatened labor at 28 weeks. 1 para 0. Consults MFM chronic HTN. Factor v Leiden fibromyalgia tachycardia. Discharge Plan Home or Community Resources: PNU Admission folder given upon admission to unit Equipment: N/A Education Given: PNU admit folder and see Education Tab Additional Information: N/A Mental Health Services: N/A Developmental Delay: N/A Children's Services: N/A [facility] 01-12-2025 Miscellaneous Notes Formattin g of this note might be different from the original. Date: 01/12/2025 Name: Leonor Hager : 2000 [facility] Patient Information Primary Caregiver: Self Accompanied by/Relationship: S/O;Family Marital Status: Support System: SO/Family Hinduism/Cultural Factors: None Activities of Daily Living Communication: See demographics Living Arrangements Current Residence: Private residence Lives With: S/O; Family Support System: S/O; Family Income Information Income Source: Not Employed Financial Resource Strain How hard is it for you to pay for the very basics like food, housing, medical care and heating? N/A Housing Stability In the last 12 months, was there a time when you did not have a steady place to sleep or slept in a chcf (including now)? No Transportation Needs Has the lack of Transportation kept you from medical appointments? No In the past 12 months, has the lack of transportation kept you from meetings, work, or from getting things needed for daily living? No Food Insecurity Within the past 12 months, have you worried that your food would run out before you got the money to buy more? No Stress Do you feel stress - tense, restless, nervous, or anxious, or unable to sleep at night because you mind is troubled all the time? Mood stable Referral To Financial Resources: N/A Community Resources: PNU folder given upon admission to PNU Unit Social Work: N/A CLP: N/A Medical Information 24 year old admitted for threatened labor at 28 weeks. 1 para 0. Consults MFM chronic HTN. Factor v Leiden fibromyalgia tachycardia. Discharge Plan Home or Community Resources: PNU Admission folder given upon admission to unit Equipment: N/A Education Given: PNU admit folder and see Education Tab Additional Information: N/A Mental Health Services: N/A Developmental Delay: N/A Children's Services: N/A documented in this encounter [facility] 01-11-2025 History and physical note Department of Maternal Medicine History and Physical CHIEF COMPLAINT: elevated blood pressure HISTORY OF PRESENT ILLNESS: The patient is a 24 y.o. female at 28w0d. OB History 1 Para Term AB Living SAB IAB Ectopic Multiple Live Births Patient presents with a chief complaint as above and is being admitted for for threatened labor. She had an office visit today to complete her 1 hr GTT and reported she was not feeling well and had elevated blood pressures at home. She was then directed to go to OB Triage at an OSH for further evaluation. She reported feeling lightheaded and currently has a headache. Denies vision changes, chest pain, shortness of breath, RUQ/epigastric pain. She was also having contractions at that time and found to be 1 cm dilated. She received a dose of BMZ and was started on magnesium sulfate for neuroprotection. She was then transferred to [facility] for admission for threatened labor. On arrival to [facility] OB Triage, she reports she is having contractions q6 minutes. Denies vaginal bleeding, leakage of fluid, or decreased movement. Still has a headache. Transport: Yes Prior Hospitalizations: No Estimated Due Date: Estimated Date of Delivery: None noted. CARE: Complications: See below PAST OB HISTORY: OB History 1 Para Term AB Living SAB IAB Ectopic Multiple Live Births Detailed OB History Current Past Medical History: Fibromyalgia Chronic HTN Factor Past Surgical History: None Allergies: NKDA Latex -- rash Social History: Social History Socioeconomic History Marital status: Spouse name: Not on file Number of children: Not on file Years of education: Not on file Highest education level: Not on file Occupational History Not on file Tobacco Use Smoking status: Not on file Smokeless tobacco: Not on file Substance and Sexual Activity Alcohol use: Not on file Drug use: Not on file Sexual activity: Not on file Other Topics Concern Not on file Social History Narrative Not on file Social Drivers of Health Financial Resource Strain: Not on file Food Insecurity: Not on file Transportation Needs: Not on file Physical Activity: Not on file Stress: Not on file Social Connections: Not on file Intimate Partner Violence: Not on file Housing Stability: Not on file Family History: Family History[1] Medications Prior to Admission: Prescriptions Prior to Admission[2] REVIEW OF SYSTEMS: Review of Systems Constitutional: Negative for chills and fever. Respiratory: Negative for shortness of breath. Cardiovascular: Negative for chest pain. Gastrointestinal: Negative for abdominal pain, constipation, diarrhea, nausea and vomiting. Genitourinary: Negative for dysuria, vaginal bleeding and vaginal discharge. Neurological: Positive for headaches. Labs: CBC, CMP, UPC, UrCx, GCCT, GBS PHYSICAL EXAM: There were no vitals filed for this visit. General appearance: awake, alert, cooperative, no apparent distress, and appears stated age Neurologic: Awake, alert, oriented to name, place and time. Lungs: No increased work of breathing, good air exchange Abdomen: Soft, non tender, gravid, consistent with her gestational age Sterile Speculum Exam: Membranes: Intact HSV Lesions: not applicable Cervix: 1/50/-3, thick, posterior, unchanged Contraction frequency: None Fetus: EFW: growth US ordered for AM Presentation: Cephalic by U/S NST: Reactive BPP: Not Performed ASSESSMENT AND PLAN: LABOR DELIVERY ??? SCD's ONLY (labor through ambulation) SCD's PLUS Prophylactic Anticoagulation until discharge SCD's PLUS Prophylactic Anticoagulation for 6 weeks SCD's PLUS Therapeutic Anticoagulation for 6 weeks Vaginal Delivery [] BMI >= 40 kg/m2 Delivery All patients Vaginal Delivery [] BMI >= 40 kg/m2 AND [] Antepartum hospitalization >= 72 hours within the past month Delivery 1 Major Risk Factor: [] BMI >= 35 kg/m2 [] Low Risk Thrombophilia [] PPH+RBCs, IR, or operation [] Infection+Antibiotics [] Antepartum hospitalization >= 72 hours within the past month [] PMH: Sickle Cell, SLE, Cardiac Dz, Active IBD, Active Cancer, Nephrotic Syndrome OR 2 Minor Risk Factors: [] Multiple gestation [] Age > 40 [] PPH >= 1,000cc [] (+)FMH of VTE [] Smoker [] Preeclampsia [] BMI >= 40 kg/m2 AND [] Low Risk Thrombophilia OR ANY OF THE FOLLOWING: [] High Risk Thrombophilia without prior VTE [] Low Risk Thrombophilia with (+)FMH of VTE [] Any single prior VTE ANY OF THE FOLLOWING: [] Already on LMWH/UFH [] Multiple prior VTE [] High Risk Thrombophilia with prior VTE Low Risk Thrombophilia: FVL (heterozygous), Prothrombin (heterozygous), Protein C, Protein S High Risk Thrombophilia: FVL (homozygous), Prothrombin (homozygous), FVL+Prothrombin (heterozygous), Antithrombin III, APLS VTE Prophylaxis: Not Indicated Admission: Admit to Antepartum (PNU) FHR: Category 1, heart monitoring Labs: GBS collected GC/CT collected Urine collected FFN not obtained Type&Screen collected Serum Labs CBC, CMP, RPR Consults: MFM Imaging: Growth US, BPP Diet: General Testing: Not indicated at this time Timing and Route of Delivery: No current contraindications to vaginal delivery Medications: Neuroprotection Indicated/ordered Tocolysis holding, plan to restart if contraction or getting uncomfortable Antibiotics Not indicated Steroids: Betamethasone - indicated and ordered Threatened Labor -SVE on admission unchanged, /-3, thick and posterior -Continue magnesium sulfate for neuroprotection until 0145 -S/p BMZ x1, second dose scheduled for 1330 01/12 -Has not completed 1 hr GTT, trend BGTs through steroid window -Tocolysis to be held at this time given patient overall comfortable and no contractions on toco, to restart if change in clinical status -GBS unknown, defer PCN in setting of no cervical change since, to start if change in clinical status or patient becomes more uncomfortable -CEFM overnight -No current contraindications to vaginal delivery Chronic HTN -Patient reports elevated Bps since early -BP normotensive on admission -Labs at OSH this afternoon wnl -Reports NEWELL on admission, receiving Excedrin, to monitor for improvement -sflt-1/plgf on admission pending Factor V Leiden -Tested due to mother and grandmother having hx of blood clots -Patient has not had personal hx of clots -Not currently on anticoagulation Fibromyalgia -No current medications Tachycardia -No current medications -EKG on admission pending IUP @ 28w0d - Dating by LMP - Cephalic on 01/11 - Monitoring: CEFM - Diet: General - BMZ x1 on 01/[address] Hughes, who agrees with plan. Kenton Booker DO 01/11/2025, 8:31 PM Cc: Aleida Rubalcava DO [1] No family history on file. [2] No medications prior to admission. 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 I discussed the management with the resident physician. I reviewed and agree with the findings and plan as documented in the note[facility] See [facility] 01/12/25. 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 I discussed the management with the resident physician. I reviewed and agree with the findings and plan as documented in the note[facility] 01/12/25. Department of Maternal Medicine History and Physical CHIEF COMPLAINT: elevated blood pressure HISTORY OF PRESENT ILLNESS: The patient is a 24 y.o. female at 28w0d. OB History 1 Para Term AB Living SAB IAB Ectopic Multiple Live Births Patient presents with a chief complaint as above and is being admitted for for threatened labor. She had an office visit today to complete her 1 hr GTT and reported she was not feeling well and had elevated blood pressures at home. She was then directed to go to OB Triage at an OSH for further evaluation. She reported feeling lightheaded and currently has a headache. Denies vision changes, chest pain, shortness of breath, RUQ/epigastric pain. She was also having contractions at that time and found to be 1 cm dilated. She received a dose of BMZ and was started on magnesium sulfate for neuroprotection. She was then transferred to [facility] for admission for threatened labor. On arrival to [facility] OB Triage, she reports she is having contractions q6 minutes. Denies vaginal bleeding, leakage of fluid, or decreased movement. Still has a headache. Transport: Yes Prior Hospitalizations: No Estimated Due Date: Estimated Date of Delivery: None noted. CARE: Complications: See below PAST OB HISTORY: OB History 1 Para Term AB Living SAB IAB Ectopic Multiple Live Births Detailed OB History Current Past Medical History: Fibromyalgia Chronic HTN Factor Past Surgical History: None Allergies: NKDA Latex -- rash Social History: Social History Socioeconomic History Marital status: Spouse name: Not on file Number of children: Not on file Years of education: Not on file Highest education level: Not on file Occupational History Not on file Tobacco Use Smoking status: Not on file Smokeless tobacco: Not on file Substance and Sexual Activity Alcohol use: Not on file Drug use: Not on file Sexual activity: Not on file Other Topics Concern Not on file Social History Narrative Not on file Social Drivers of Health Financial Resource Strain: Not on file Food Insecurity: Not on file Transportation Needs: Not on file Physical Activity: Not on file Stress: Not on file Social Connections: Not on file Intimate Partner Violence: Not on file Housing Stability: Not on file Family History: Family History[1] Medications Prior to Admission: Prescriptions Prior to Admission[2] REVIEW OF SYSTEMS: Review of Systems Constitutional: Negative for chills and fever. Respiratory: Negative for shortness of breath. Cardiovascular: Negative for chest pain. Gastrointestinal: Negative for abdominal pain, constipation, diarrhea, nausea and vomiting. Genitourinary: Negative for dysuria, vaginal bleeding and vaginal discharge. Neurological: Positive for headaches. Labs: CBC, CMP, UPC, UrCx, GCCT, GBS PHYSICAL EXAM: There were no vitals filed for this visit. General appearance: awake, alert, cooperative, no apparent distress, and appears stated age Neurologic: Awake, alert, oriented to name, place and time. Lungs: No increased work of breathing, good air exchange Abdomen: Soft, non tender, gravid, consistent with her gestational age Sterile Speculum Exam: Membranes: Intact HSV Lesions: not applicable Cervix: 1/50/-3, thick, posterior, unchanged Contraction frequency: None Fetus: EFW: growth US ordered for AM Presentation: Cephalic by U/S NST: Reactive BPP: Not Performed ASSESSMENT AND PLAN: LABOR DELIVERY ??? SCD's ONLY (labor through ambulation) SCD's PLUS Prophylactic Anticoagulation until discharge SCD's PLUS Prophylactic Anticoagulation for 6 weeks SCD's PLUS Therapeutic Anticoagulation for 6 weeks Vaginal Delivery [] BMI >= 40 kg/m2 Delivery All patients Vaginal Delivery [] BMI >= 40 kg/m2 AND [] Antepartum hospitalization >= 72 hours within the past month Delivery 1 Major Risk Factor: [] BMI >= 35 kg/m2 [] Low Risk Thrombophilia [] PPH+RBCs, IR, or operation [] Infection+Antibiotics [] Antepartum hospitalization >= 72 hours within the past month [] PMH: Sickle Cell, SLE, Cardiac Dz, Active IBD, Active Cancer, Nephrotic Syndrome OR 2 Minor Risk Factors: [] Multiple gestation [] Age > 40 [] PPH (more content not included)... [facility] 01-11-2025 History and physical note Department of Maternal Medicine History and Physical CHIEF COMPLAINT: elevated blood pressure HISTORY OF PRESENT ILLNESS: The patient is a 24 y.o. female at 28w0d. OB History 1 Para Term AB Living SAB IAB Ectopic Multiple Live Births Patient presents with a chief complaint as above and is being admitted for for threatened labor. She had an office visit today to complete her 1 hr GTT and reported she was not feeling well and had elevated blood pressures at home. She was then directed to go to OB Triage at an OSH for further evaluation. She reported feeling lightheaded and currently has a headache. Denies vision changes, chest pain, shortness of breath, RUQ/epigastric pain. She was also having contractions at that time and found to be 1 cm dilated. She received a dose of BMZ and was started on magnesium sulfate for neuroprotection. She was then transferred to [facility] for admission for threatened labor. On arrival to [facility] OB Triage, she reports she is having contractions q6 minutes. Denies vaginal bleeding, leakage of fluid, or decreased movement. Still has a headache. Transport: Yes Prior Hospitalizations: No Estimated Due Date: Estimated Date of Delivery: None noted. CARE: Complications: See below PAST OB HISTORY: OB History 1 Para Term AB Living SAB IAB Ectopic Multiple Live Births Detailed OB History Current Past Medical History: Fibromyalgia Chronic HTN Factor Past Surgical History: None Allergies: NKDA Latex -- rash Social History: Social History Socioeconomic History Marital status: Spouse name: Not on file Number of children: Not on file Years of education: Not on file Highest education level: Not on file Occupational History Not on file Tobacco Use Smoking status: Not on file Smokeless tobacco: Not on file Substance and Sexual Activity Alcohol use: Not on file Drug use: Not on file Sexual activity: Not on file Other Topics Concern Not on file Social History Narrative Not on file Social Drivers of Health Financial Resource Strain: Not on file Food Insecurity: Not on file Transportation Needs: Not on file Physical Activity: Not on file Stress: Not on file Social Connections: Not on file Intimate Partner Violence: Not on file Housing Stability: Not on file Family History: Family History[1] Medications Prior to Admission: Prescriptions Prior to Admission[2] REVIEW OF SYSTEMS: Review of Systems Constitutional: Negative for chills and fever. Respiratory: Negative for shortness of breath. Cardiovascular: Negative for chest pain. Gastrointestinal: Negative for abdominal pain, constipation, diarrhea, nausea and vomiting. Genitourinary: Negative for dysuria, vaginal bleeding and vaginal discharge. Neurological: Positive for headaches. Labs: CBC, CMP, UPC, UrCx, GCCT, GBS PHYSICAL EXAM: There were no vitals filed for this visit. General appearance: awake, alert, cooperative, no apparent distress, and appears stated age Neurologic: Awake, alert, oriented to name, place and time. Lungs: No increased work of breathing, good air exchange Abdomen: Soft, non tender, gravid, consistent with her gestational age Sterile Speculum Exam: Membranes: Intact HSV Lesions: not applicable Cervix: 1/50/-3, thick, posterior, unchanged Contraction frequency: None Fetus: EFW: growth US ordered for AM Presentation: Cephalic by U/S NST: Reactive BPP: Not Performed ASSESSMENT AND PLAN: LABOR DELIVERY ??? SCD's ONLY (labor through ambulation) SCD's PLUS Prophylactic Anticoagulation until discharge SCD's PLUS Prophylactic Anticoagulation for 6 weeks SCD's PLUS Therapeutic Anticoagulation for 6 weeks Vaginal Delivery [] BMI >= 40 kg/m2 Delivery All patients Vaginal Delivery [] BMI >= 40 kg/m2 AND [] Antepartum hospitalization >= 72 hours within the past month Delivery 1 Major Risk Factor: [] BMI >= 35 kg/m2 [] Low Risk Thrombophilia [] PPH+RBCs, IR, or operation [] Infection+Antibiotics [] Antepartum hospitalization >= 72 hours within the past month [] PMH: Sickle Cell, SLE, Cardiac Dz, Active IBD, Active Cancer, Nephrotic Syndrome OR 2 Minor Risk Factors: [] Multiple gestation [] Age > 40 [] PPH >= 1,000cc [] (+)FMH of VTE [] Smoker [] Preeclampsia [] BMI >= 40 kg/m2 AND [] Low Risk Thrombophilia OR ANY OF THE FOLLOWING: [] High Risk Thrombophilia without prior VTE [] Low Risk Thrombophilia with (+)FMH of VTE [] Any single prior VTE ANY OF THE FOLLOWING: [] Already on LMWH/UFH [] Multiple prior VTE [] High Risk Thrombophilia with prior VTE Low Risk Thrombophilia: FVL (heterozygous), Prothrombin (heterozygous), Protein C, Protein S High Risk Thrombophilia: FVL (homozygous), Prothrombin (homozygous), FVL+Prothrombin (heterozygous), Antithrombin III, APLS VTE Prophylaxis: Not Indicated Admission: Admit to Antepartum (PNU) FHR: Category 1, heart monitoring Labs: GBS collected GC/CT collected Urine collected FFN not obtained Type&Screen collected Serum Labs CBC, CMP, RPR Consults: MFM Imaging: Growth US, BPP Diet: General Testing: Not indicated at this time Timing and Route of Delivery: No current contraindications to vaginal delivery Medications: Neuroprotection Indicated/ordered Tocolysis holding, plan to restart if contraction or getting uncomfortable Antibiotics Not indicated Steroids: Betamethasone - indicated and ordered Threatened Labor -SVE on admission unchanged, /-3, thick and posterior -Continue magnesium sulfate for neuroprotection until 0145 -S/p BMZ x1, second dose scheduled for 1330 01/12 -Has not completed 1 hr GTT, trend BGTs through steroid window -Tocolysis to be held at this time given patient overall comfortable and no contractions on toco, to restart if change in clinical status -GBS unknown, defer PCN in setting of no cervical change since, to start if change in clinical status or patient becomes more uncomfortable -CEFM overnight -No current contraindications to vaginal delivery Chronic HTN -Patient reports elevated Bps since early -BP normotensive on admission -Labs at OSH this afternoon wnl -Reports NEWELL on admission, receiving Excedrin, to monitor for improvement -sflt-1/plgf on admission pending Factor V Leiden -Tested due to mother and grandmother having hx of blood clots -Patient has not had personal hx of clots -Not currently on anticoagulation Fibromyalgia -No current medications Tachycardia -No current medications -EKG on admission pending IUP @ 28w0d - Dating by LMP - Cephalic on 01/11 - Monitoring: CEFM - Diet: General - BMZ x1 on 01/[address] Hughes, who agrees with plan. Kenton Booker DO 01/11/2025, 8:31 PM Cc: Aleida Rubalcava DO [1] No family history on file. [2] No medications prior to admission. 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 I discussed the management with the resident physician. I reviewed and agree with the findings and plan as documented in the note. Transport from Dr. Rincon, [facility]. See Attestation 01/12/25. documented in this encounter 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 She denies visual changes. consultation with M recommended to start magnesium sulfate and steriods. They are aware that her labs are normal and protein is negative. ultrasound shows adequate growth and fluid with normal placentation RUQ ultrasound shows only a 1.3 cm hemangioma and mild right hydro (11cm) Maternal Data Information ZACK Calculator Estimated Delivery Date Method Current WG Current Estimate 04/05/25 LMP (Certain) 28w 0d Other Estimates 04/03/25 Ultrasound #1 28w 2d PFSH PFSH Medical History History of migraine headaches Home Medications ?Medication ?Instructions ?Recorded ?Last Taken ?Type docosahexaenoic acid 200 mg mg PO supplement 08/13/24 01/10/25 21:00 History capsule ( DHA) 200 mg Allergy/AdvReac Type Severity Reaction Status Date / Time latex Allergy Mild Rash Verified 01/11/25 09:25 Family History Father Asthma Mother Blood clot in abdominal vein Hypertension Factor V Leiden Grandmother Breast cancer Grandfather Hypertension Myocardial infarction, Onset Age: 42 and at age 61 Grandfather Myocardial infarction Social History adopted: No household members: spouse current occupational status: student 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 current occupational exposures/hazards: No pets and animals: No history of recent travel: Yes ( - June 2024) out of state: Yes out of country: No sexually active: Yes Smoking Status: Never smoker alcohol intake: never substance use type: does not use well-balanced diet: daily or most days caffeine: Yes Type: coffee eating out: 1-3 times/week during the past year weight has: remained stable what type of physical activity do you participate in: walking frequency: 3-4 times per week duration: 15-30 minutes/day melvina/presybeterian: Uatsdin seatbelt use: always do you feel safe at home: Yes additional social history: : [employer] - [employer]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 History 1 Elective abortions Hx Para 0 Spontaneous abortions Hx # Term Pregnancies Ectopic pregnancies Hx # Pregnancies Multiple births # of living children Visit Details Expected Delivery Route/Plan Labor Preferences- CB/BF classes: [] labor support person: [] labor intervention preferences: [] pain management options preferred: [] cut cord/dad catch: [] : [] PP control planned: [] discussed possible routes of delivery and associated risks: [] special requests: [] Plans Covid status: [] Flu vaccine: [] Tdap vaccine: declines Rhogam: na LARC form signed:yes Problem list reviewed and updated with the most current plan of care details and appropriate orders placed. Relevant counseling for the gestational age provided. Continue routine care and follow up unless otherwise noted in visit notes/problem list details OB Flowsheet Initial Weight: Not Recorded Date -?-?-?-?-?-?-?-?-?-?-?-?- EGA Weight BP Urine Prot -?-?-?-?-?-?-?-?-?-?-?-?- Glucose FHR FuHt Pres Dilation -?-?-?-?-?-?-?-?-?-?-?-?- Effaced St Visit Note 08/27/24 -?-?-?--?-?-?-?-?-?-?-?-?- 8w 3d 130 lb 6 oz 126/75 -?-?-?-?-?-?-?-?-?-?-?-?- 161 -?-?-?-?-?-?-?-?-?-?-?-?- JV- CRL is consi stent with LMP. Desires NIPT. 09/27/24 -?-?-?-?-?-?-?-?-?-?-?-?- 12w 6d 134 lb 2 oz 119/86 Nega tive -?-?-?-?-?-?-?-?-?-?-?-?- Negative 168 -?-?-?-?-?-?-?-?-?-?-?-?- MH-No VB. Nausea improving. Br US to confirm FHT. PN labs and NIPT today 11/26/24 -?-?-?-?-?-?-?-?-?-?-?-?- 21w 3d 146 lb 3 oz 136/86 Nega tive -?-?-?-?-?-?-?-?-?-?-?-?- Negative 150 -?-?-?-?-?-?-?-?-?-?-?-?- SM- no vb lof go od fm no regular ctx nl anatomy 12/23/24 -?-?-?-?-?-?-?-?-?-?-?-?- 25w 2d 151 lb 8 oz 132/87 Nega tive -?-?-?-?-?-?-?-?-?-?-?-?- Negative 155 25 -?-?-?-?-?-?-?-?-?-?-?-?- KW- no vb/crampi ng. good fm. glucose next visit. 01/11/25 -?-?-?-?-?-?-?-?-?-?-?-?- 28w 0d 156 lb 2 oz 144/96 Tra e -?-?-?-?-?-?-?-?-?-?-?-?- Negative 152 27 -?-?-?-?-?-?-?-?-?-?-?-?- MH-No VB. Good F M. Headache, elevated BP and proteinuria-labs and sent to [facility] Constitutional Constitutional: Denies change in weight, fatigue, fever(s), poor appetite or weakness Eyes Eyes: Denies blurry vision, change in vision, seeing flashes or spots in vision ENT HEENT: Denies dizziness, headache(s), loss taste/smell or sore throat Cardiovascular Cardiovascular: Denies chest pain, dizziness, dyspnea, irregular heart rhythm, leg edema, palpitations, rapid heart rate or vomiting Respiratory/Chest Respiratory/Chest: Denies chest tightness, cough, dyspnea or breast pain Gastrointestinal Gastrointestinal: Denies anorexia, constipation, cramping, diarrhea, hemorrhoids, vomiting or weight changes Genitourinary Genitourinary: Denies dysuria, flank pain, genital lesions, genital pain, urinary frequency or urinary urgency Musculoskeletal Musculoskeletal: Denies back pain, difficulty walking, joint pain, limited range of motion, muscle cramps or numbness Integumentary Integumentary: Denies lesions or unusual bruising Neurologic Neurologic: Denies abnormal movements, abnormal speech, dizziness, numbness, seizure-like activity or syncope Psychiatric Psychiatric: Denies anxiety, behavioral changes, change in appetite, change in libido, cognitive impairment, confusion, depression, difficulty concentrating, hallucinations or suicidal thoughts Endocrine Endocrinology: Denies excessive sweating, polydipsia or polyuria Hematologic/Lymphatic Hematologic/Lymphatic: Denies easy bleeding, easy bruising or lymphadenopathy Allergic/Immunologic Allergic/Immunologic: Denies itchy eyes, lip swelling, seasonal rhinorrhea, rhinitis, throat swelling, tongue swelling, eczemia, wheezing or asthma Vital Signs Vital Signs Vital Signs: 01/11/25 10:08 01/11/25 10:08 01/11/25 10:08 Temperature Temperature Source Temporal Pulse Rate 99 Respiratory Rate Respiratory Effort Respiratory Depth Respiratory Pattern Blood Pressure 128/89 H Blood Pressure Mean BP Systolic 128 BP Diastolic 89 Blood Pressure Source Blood Pressure Position Blood Pressure Location Pulse Ox Oxygen Delivery Method 01/11/25 10:08 01/11/25 10:08 01/11/25 10:08 Temperature 98.2 F Temperature Source Pulse Rate Respiratory Rate 12 Respiratory Effort Respiratory Depth Respiratory Pattern Blood Pressure Blood Pressure Mean BP Systolic BP Diastolic Blood Pressure Source Blood Pressure Position Blood Pressure Location Pulse Ox 98 Oxygen Delivery Method 01/11/25 10:17 01/11/25 10:17 01/11/25 10:32 Temperature Temperature Source Pulse Rate 105 H Respiratory Rate Respiratory Effort Respiratory Depth Respiratory Pattern Blood Pressure 122/84 H 126/96 H Blood Pressure Mean BP Systolic 122 126 BP Diastolic 84 96 Blood Pressure Source Blood Pressure Position Blood Pressure Location Pulse Ox Oxygen Delivery Method 01/11/25 10:32 01/11/25 10:48 01/11/25 10:48 Temperature Temperature Source Pulse Rate 88 85 Respiratory Rate Respiratory Effort Respiratory Depth Respiratory Pattern Blood Pressure 113/76 Blood Pressure Mean BP Systolic 113 BP Diastolic 76 Blood Pressure Source Blood Pressure Position Blood Pressure Location Pulse Ox Oxygen Delivery Method 01/11/25 11:02 01/11/25 11:02 01/11/25 11:17 Temperature Temperature Source Pulse Rate 77 Respiratory Rate Respiratory Effort Respiratory Depth Respiratory Pattern Blood Pressure 115/78 122/82 H Blood Pressure Mean BP Systolic 115 122 BP Diastolic 78 82 Blood Pressure Source Blood Pressure Position Blood Pressure Location Pulse Ox Oxygen Delivery Method 01/11/25 11:17 01/11/25 11:32 01/11/25 11:32 Temperature Temperature Source Pulse Rate 72 75 Respiratory Rate Respiratory Effort Respiratory Depth Respiratory Pattern Blood Pressure 114/77 Blood Pressure Mean BP Systolic 114 BP Diastolic 77 Blood Pressure Source Blood Pressure Position Blood Pressure Location Pulse Ox Oxygen Delivery Method 01/11/25 11:47 01/11/25 11:47 01/11/25 12:02 Temperature Temperature Source Pulse Rate 78 Respiratory Rate Respiratory Effort Respiratory Depth Respiratory Pattern Blood Pressure 114/74 117/74 Blood Pressure Mean BP Systolic 114 117 BP Diastolic 74 74 Blood Pressure Source Blood Pressure Position Blood Pressure Location Pulse Ox Oxygen Delivery Method 01/11/25 12:02 01/11/25 12:17 01/11/25 12:17 Temperature Temperature Source Pulse Rate 85 83 Respiratory Rate Respiratory Effort Respiratory Depth Respiratory Pattern Blood Pressure 118/77 Blood Pressure Mean BP Systolic 118 BP Diastolic 77 Blood Pressure Source Blood Pressure Position Blood Pressure Location Pulse Ox Oxygen Delivery Method 01/11/25 12:32 01/11/25 12:32 01/11/25 12:50 Temperature Temperature Source Temporal Pulse Rate 81 Respiratory Rate Respiratory Effort Respiratory Depth Respiratory Pattern Blood Pressure 126/79 H Blood Pressure Mean BP Systolic 126 BP Diastolic 79 Blood Pressure Source Blood Pressure Position Blood Pressure Location Pulse Ox Oxygen Delivery Method 01/11/25 13:36 01/11/25 13:36 01/11/25 13:36 Temperature Temperature Source Temporal Pulse Rate 93 Respiratory Rate Respiratory Effort Respiratory Depth Respiratory Pattern Blood Pressure 122/60 H Blood Pressure Mean BP Systolic 122 BP Diastolic 60 Blood Pressure Source Blood Pressure Position Blood Pressure Location Pulse Ox Oxygen Delivery Method 01/11/25 13:36 01/11/25 13:36 01/11/25 13:36 Temperature 98.3 F Temperature Source Pulse Rate Respiratory Rate 18 Respiratory Effort Respiratory Depth Respiratory Pattern Blood Pressure Blood Pressure Mean BP Systolic BP Diastolic Blood Pressure Source Blood Pressure Position Blood Pressure Location Pulse Ox 97 Oxygen Delivery Method 01/11/25 13:50 01/11/25 13:50 01/11/25 13:52 Temperature 98.1 F Temperature Source Temporal Temporal Pulse Rate 89 Respiratory Rate 16 Respiratory Effort Normal Non-Labored Respiratory Depth Normal Respiratory Pattern Normal Blood Pressure 135/79 H 135/79 H Blood Pressure Mean 97 BP Systolic 135 BP Diastolic 79 Blood Pressure Source Monitor Blood Pressure Position Semi-Fowlers Blood Pressure Location Left Arm Pulse Ox 98 Oxygen Delivery Method Room Air 01/11/25 13:52 01/11/25 13:54 01/11/25 13:54 Temperature Temperature Source Pulse Rate 89 87 Respiratory Rate Respiratory Effort Respiratory Depth Respiratory Pattern Blood Pressure Blood Pressure Mean BP Systolic BP Diastolic Blood Pressure Source Blood Pressure Position Blood Pressure Location Pulse Ox 98 Oxygen Delivery Method 01/11/25 14:07 01/11/25 14:07 01/11/25 14:09 Temperature Temperature Source Pulse Rate 89 84 Respiratory Rate Respiratory Effort Respiratory Depth Respiratory Pattern Blood Pressure 139/84 H Blood Pressure Mean BP Systolic 139 BP Diastolic 84 Blood Pressure Source Blood Pressure Position Blood Pressure Location Pulse Ox Oxygen Delivery Method 01/11/25 14:09 01/11/25 15:30 01/11/25 15:30 Temperature Temperature Source Pulse Rate 88 Respiratory Rate Respiratory Effort Respiratory Depth Respiratory Pattern Blood Pressure 114/80 Blood Pressure Mean BP Systolic 114 BP Diastolic 80 Blood Pressure Source Blood Pressure Position Blood Pressure Location Pulse Ox 97 Oxygen Delivery Method 01/11/25 15:46 01/11/25 16:00 01/11/25 16:00 Temperature 98.5 F Temperature Source Temporal Temporal Pulse Rate 93 108 H Respiratory Rate 14 16 Respiratory Effort Respiratory Depth Respiratory Pattern Blood Pressure 123/83 H 124/85 H Blood Pressure Mean 96 98 BP Systolic BP Diastolic Blood Pressure Source Monitor Monitor Blood Pressure Position Semi-Fowlers Semi-Fowlers Blood Pressure Location Left Arm Pulse Ox 98 98 Oxygen Delivery Method Room Air Room Air 01/11/25 16:01 01/11/25 16:01 01/11/25 16:05 Temperature Temperature Source Pulse Rate 91 89 Respiratory Rate Respiratory Effort Respiratory Depth Respiratory Pattern Blood Pressure 123/83 H Blood Pressure Mean BP Systolic 123 BP Diastolic 83 Blood Pressure Source Blood Pressure Position Blood Pressure Location Pulse Ox Oxygen Delivery Method 01/11/25 16:05 01/11/25 16:10 01/11/25 16:10 Temperature Temperature Source Pulse Rate 97 Respiratory Rate Respiratory Effort Respiratory Depth Respiratory Pattern Blood Pressure Blood Pressure Mean BP Systolic BP Diastolic Blood Pressure Source Blood Pressure Position Blood Pressure Location Pulse Ox 97 97 Oxygen Delivery Method 01/11/25 16:11 01/11/25 16:11 01/11/25 16:15 Temperature Temperature Source Pulse Rate 95 95 Respiratory Rate Respiratory Effort Respiratory Depth Respiratory Pattern Blood Pressure 124/85 H Blood Pressure Mean BP Systolic 124 BP Diastolic 85 Blood Pressure Source Blood Pressure Position Blood Pressure Location Pulse Ox Oxygen Delivery Method 01/11/25 16:15 01/11/25 16:15 01/11/25 16:15 Temperature 98.1 F Temperature Source Temporal Temporal Pulse Rate 94 Respiratory Rate 16 Respiratory Effort Respiratory Depth Respiratory Pattern Blood Pressure Blood Pressure Mean BP Systolic BP Diastolic Blood Pressure Source Monitor Blood Pressure Position Semi-Fowlers Blood Pressure Location Left Arm Pulse Ox 97 98 Oxygen Delivery Method Room Air Weight Weight: 156 lb 4.924 oz Body Mass Index (BMI) 25.2 Physical Exam Const alert, oriented x3, no apparent distress and healthy appearing General Appearance: cooperative; Negative for anxious HEENT normocephalic Face and Sinus: normal facial exam Eyes EOMs intact bilaterally and no scleral icterus General Eye: normal appearance of both eyes Neck full ROM and supple Lymph Lymphatic: no lymphadenopathy noted Resp normal respiratory effort Effort and Inspection: able to speak in complete sentences Cardio regular rate GI soft to palpation and non-tender Inspection: gravid Palpation: soft; Negative for tender Extremity normal to inspection, full ROM and no clubbing, cyanosis or edema General Extremity: Negative for calf tenderness or edema Skin Lesions: no lesions Rashes: no rashes Psych mental status grossly normal Labs Labs Labs: Blood Type B POSITIVE Antibody Screen NEGATIVE Hct 30.8 % (37-47) L Hgb 10.7 g/dL (12.0-15.0) L Obstetrics Ultrasound Syphilis Total Ab Nonreactive (Nonreactive) Rubella IgG Antibody REAC (Nonreactive) Hep Bs Antigen Nonreactive (Nonreactive) Hepatitis C Antibody Nonreactive (Nonreactive) Chlamydia DNA (ENRIQUE) Negative (Negative) N.gonorrhoeae DNA (ENRIQUE) Negative (Negative) HIV 1&2 Antibody Nonreactive (Nonreactive) Glucose 1 Hr 50 gm 87 mg/dL (70-140) Assessment & Plan (1) Elevated blood pressure affecting in second trimester, antepartum: COMMENT: labs. to [facility] (2) Headache in : QUALIFIERS: Trimester: second trimester Qualified Code(s): O26.892 - Other specified related conditions, second trimester; R51.9 - Headache, unspecified COMMENT: no vision changes. To [facility], labs (3) Supervision of high-risk : QUALIFIERS: Trimester: first trimester Qualified Code(s): O09.91 - Supervision of high risk , unspecified, first trimester COMMENT: PRR G1, ZACK 04/05/25, boy Onofre : Emeterio (4) : QUALIFIERS: Weeks of gestation: 25 weeks Qualified Code(s): Z3A.25 - 25 weeks gestation of COMMENT: declined carrier and ntd screen. NIPT-low risk, gender male. nl anatomy. (5) Fibromyalgia: (6) Epigastric pain during , antepartum: PLAN: Plan starting mag and steroids, q 2 hr bp assessments. (now normal pressures) will re-evaluate labs tomorrow collecting 24 hour urine. 01/11/25 1626 <Electronically signed by Yudith Harper DO> Cosigner Signature (if applicable): CC: Dr. Yudith Harper DO; No Primary Care Physician~ Signed ADDENDUM by Dr. Yudith Harper DO on 01/11/25 at 1627 Visit Charges Inpatient E&M: 31590 Init Hosp L3 01/11/25 1627<Electronically signed by Yudith Harper DO> Cosigner Signature (if applicable): cc: Dr. 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 She denies visual changes. consultation with M recommended to start magnesium sulfate and steriods. They are aware that her labs are normal and protein is negative. ultrasound shows adequate growth and fluid with normal placentation RUQ ultrasound shows only a 1.3 cm hemangioma and mild right hydro (11cm) Maternal Data Information ZACK Calculator Estimated Delivery Date Method Current WG Current Estimate 04/05/25 LMP (Certain) 28w 0d Other Estimates 04/03/25 Ultrasound #1 28w 2d PFSH PFSH Medical History History of migraine headaches Home Medications ?Medication ?Instructions ?Recorded ?Last Taken ?Type docosahexaenoic acid 200 mg mg PO supplement 08/13/24 01/10/25 21:00 History capsule ( DHA) 200 mg Allergy/AdvReac Type Severity Reaction Status Date / Time latex Allergy Mild Rash Verified 01/11/25 09:25 Family History Father Asthma Mother Blood clot in abdominal vein Hypertension Factor V Leiden Grandmother Breast cancer Grandfather Hypertension Myocardial infarction, Onset Age: 42 and at age 61 Grandfather Myocardial infarction Social History adopted: No household members: spouse current occupational status: student 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 current occupational exposures/hazards: No pets and animals: No history of recent travel: Yes ( - June 2024) out of state: Yes out of country: No sexually active: Yes Smoking Status: Never smoker alcohol intake: never substance use type: does not use well-balanced diet: daily or most days caffeine: Yes Type: coffee eating out: 1-3 times/week during the past year weight has: remained stable what type of physical activity do you participate in: walking frequency: 3-4 times per week duration: 15-30 minutes/day melvina/presybeterian: Uatsdin seatbelt use: always do you feel safe at home: Yes additional social history: : Emeterio - [employer]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 History 1 Elective abortions Hx Para 0 Spontaneous abortions Hx # Term Pregnancies Ectopic pregnancies Hx # Pregnancies Multiple births # of living children Visit Details Expected Delivery Route/Plan Labor Preferences- CB/BF classes: [] labor support person: [] labor intervention preferences: [] pain management options preferred: [] cut cord/dad catch: [] : [] PP control planned: [] discussed possible routes of delivery and associated risks: [] special requests: [] Plans Covid status: [] Flu vaccine: [] Tdap vaccine: declines Rhogam: na LARC form signed:yes Problem list reviewed and updated with the most current plan of care details and appropriate ordersplaced. Relevant counseling for the gestational age provided. Continue routine care and follow up unless otherwise noted in visit notes/problem list details OB Flowsheet Initial Weight: Not Recorded Date -?-?-?-?-?-?-?-?-?-?-?-?- EGA Weight BP Urine Prot -?-?-?-?-?-?-?-?-?-?-?-?- Glucose FHR FuHt Pres Dilation -?-?-?-?-?-?-?-?-?-?-?-?- Effaced St Visit Note 08/27/24 -?-?-?--?-?-?-?-?-?-?-?-?- 8w 3d 130 lb 6 oz 126/75 -?-?-?-?-?-?-?-?-?-?-?-?- 161 -?-?-?-?-?-?-?-?-?-?-?-?- JV- CRL is consi stent with LMP. Desires NIPT. 09/27/24 -?-?-?-?-?-?-?-?-?-?-?-?- 12w 6d 134 lb 2 oz 119/86 Nega tive -?-?-?-?-?-?-?-?-?-?-?-?- Negative 168 -?-?-?-?-?-?-?-?-?-?-?-?- -No VB. Nausea improving. Br US to confirm FHT. PN labs and NIPT today 11/26/24 -?-?-?-?-?-?-?-?-?-?-?-?- 21w 3d 146 lb 3 oz 136/86 Nega tive -?-?-?-?-?-?-?-?-?-?-?-?- Negative 150 -?-?-?-?-?-?-?-?-?-?-?-?- SM- no vb lof go od fm no regular ctx nl anatomy 12/23/24 -?-?-?-?-?-?-?-?-?-?-?-?- 25w 2d 151 lb 8 oz 132/87 Nega tive -?-?-?-?-?-?-?-?-?-?-?-?- Negative 155 25 -?-?-?-?-?-?-?-?-?-?-?-?- KW- no vb/crampi ng. good fm. glucose next visit. 01/11/25 -?-?-?-?-?-?-?-?-?-?-?-?- 28w 0d 156 lb 2 oz 144/96 Trac e -?-?-?-?-?-?-?-?-?-?-?-?- Negative 152 27 -?-?-?-?-?-?-?-?-?-?-?-?- MH-No VB. Good F M. Headache, elevated BP and proteinuria-labs and sent to [facility]. FOWLER Constitutional Constitutional: Denies change in weight, fatigue, fever(s), poor appetite or weakness Eyes Eyes: Denies blurry vision, change in vision, seeing flashes or spots in vision ENT HEENT: Denies dizziness, headache(s), loss taste/smell or sore throat Cardiovascular Cardiovascular: Denies chest pain, dizziness, dyspnea, irregular heart rhythm, leg edema, palpitations, rapid heart rate or vomiting Respiratory/Chest Respiratory/Chest: Denies chest tightness, cough, dyspnea or breast pain Gastrointestinal Gastrointestinal: Denies anorexia, constipation, cramping, diarrhea, hemorrhoids, vomiting or weight changes Genitourinary Genitourinary: Denies dysuria, flank pain, genital lesions, genital pain, urinary frequency or urinary urgency Musculoskeletal Musculoskeletal: Denies back pain, difficulty walking, joint pain, limited range of motion, muscle cramps or numbness Integumentary Integumentary: Denies lesions or unusual bruising Neurologic Neurologic: Denies abnormal movements, abnormal speech, dizziness, numbness, seizure-like activity or syncope Psychiatric Psychiatric: Denies anxiety, behavioral changes, change in appetite, change in libido, cognitive impairment, confusion, depression, difficulty concentrating, hallucinations or suicidal thoughts Endocrine Endocrinology: Denies excessive sweating, polydipsia or polyuria Hematologic/Lymphatic Hematologic/Lymphatic: Denies easy bleeding, easy bruising or lymphadenopathy Allergic/Immunologic Allergic/Immunologic: Denies itchy eyes, lip swelling, seasonal rhinorrhea, rhinitis, throat swelling, tongue swelling, eczemia, wheezing or asthma Vital Signs Vital Signs Vital Signs: 01/11/25 10:08 01/11/25 10:08 01/11/25 10:08 Temperature Temperature Source Temporal Pulse Rate 99 Respiratory Rate Respiratory Effort Respiratory Depth Respiratory Pattern Blood Pressure 128/89 H Blood Pressure Mean BP Systolic 128 BP Diastolic 89 Blood Pressure Source Blood Pressure Position Blood Pressure Location Pulse Ox Oxygen Delivery Method 01/11/25 10:08 01/11/25 10:08 01/11/25 10:08 Temperature 98.2 F Temperature Source Pulse Rate Respiratory Rate 12 Respiratory Effort Respiratory Depth Respiratory Pattern Blood Pressure Blood Pressure Mean BP Systolic BP Diastolic Blood Pressure Source Blood Pressure Position Blood Pressure Location Pulse Ox 98 Oxygen Delivery Method 01/11/25 10:17 01/11/25 10:17 01/11/25 10:32 Temperature Temperature Source Pulse Rate 105 H Respiratory Rate Respiratory Effort Respiratory Depth Respiratory Pattern Blood Pressure 122/84 H 126/96 H Blood Pressure Mean BP Systolic 122 126 BP Diastolic 84 96 Blood Pressure Source Blood Pressure Position Blood Pressure Location Pulse Ox Oxygen Delivery Method 01/11/25 10:32 01/11/25 10:48 01/11/25 10:48 Temperature Temperature Source Pulse Rate 88 85 Respiratory Rate Respiratory Effort Respiratory Depth Respiratory Pattern Blood Pressure 113/76 Blood Pressure Mean BP Systolic 113 BP Diastolic 76 Blood Pressure Source Blood Pressure Position Blood Pressure Location Pulse Ox Oxygen Delivery Method 01/11/25 11:02 01/11/25 11:02 01/11/25 11:17 Temperature Temperature Source Pulse Rate 77 Respiratory Rate Respiratory Effort Respiratory Depth Respiratory Pattern Blood Pressure 115/78 122/82 H Blood Pressure Mean BP Systolic 115 122 BP Diastolic 78 82 Blood Pressure Source Blood Pressure Position Blood Pressure Location Pulse Ox Oxygen Delivery Method 01/11/25 11:17 01/11/25 11:32 01/11/25 11:32 Temperature Temperature Source Pulse Rate 72 75 Respiratory Rate Respiratory Effort Respiratory Depth Respiratory Pattern Blood Pressure 114/77 Blood Pressure Mean BP Systolic 114 BP Diastolic 77 Blood Pressure Source Blood Pressure Position Blood Pressure Location Pulse Ox Oxygen Delivery Method 01/11/25 11:47 01/11/25 11:47 01/11/25 12:02 Temperature Temperature Source Pulse Rate 78 Respiratory Rate Respiratory Effort Respiratory Depth Respiratory Pattern Blood Pressure 114/74 117/74 Blood Pressure Mean BP Systolic 114 117 BP Diastolic 74 74 Blood Pressure Source Blood Pressure Position Blood Pressure Location Pulse Ox Oxygen Delivery Method 01/11/25 12:02 01/11/25 12:17 01/11/25 12:17 Temperature Temperature Source Pulse Rate 85 83 Respiratory Rate Respiratory Effort Respiratory Depth Respiratory Pattern Blood Pressure 118/77 Blood Pressure Mean BP Systolic 118 BP Diastolic 77 Blood Pressure Source Blood Pressure Position Blood Pressure Location Pulse Ox Oxygen Delivery Method 01/11/25 12:32 01/11/25 12:32 01/11/25 12:50 Temperature Temperature Source Temporal Pulse Rate 81 Respiratory Rate Respiratory Effort Respiratory Depth Respiratory Pattern Blood Pressure 126/79 H Blood Pressure Mean BP Systolic 126 BP Diastolic 79 Blood Pressure Source Blood Pressure Position Blood Pressure Location Pulse Ox Oxygen Delivery Method 01/11/25 13:36 01/11/25 13:36 01/11/25 13:36 Temperature Temperature Source Temporal Pulse Rate 93 Respiratory Rate Respiratory Effort Respiratory Depth Respiratory Pattern Blood Pressure 122/60 H Blood Pressure Mean BP Systolic 122 BP Diastolic 60 Blood Pressure Source Blood Pressure Position Blood Pressure Location Pulse Ox Oxygen Delivery Method 01/11/25 13:36 01/11/25 13:36 01/11/25 13:36 Temperature 98.3 F Temperature Source Pulse Rate Respiratory Rate 18 Respiratory Effort Respiratory Depth Respiratory Pattern Blood Pressure Blood Pressure Mean BP Systolic BP Diastolic Blood Pressure Source Blood Pressure Position Blood Pressure Location Pulse Ox 97 Oxygen Delivery Method 01/11/25 13:50 01/11/25 13:50 01/11/25 13:52 Temperature 98.1 F Temperature Source Temporal Temporal Pulse Rate 89 Respiratory Rate 16 Respiratory Effort Normal Non-Labored Respiratory Depth Normal Respiratory Pattern Normal Blood Pressure 135/79 H 135/79 H Blood Pressure Mean 97 BP Systolic 135 BP Diastolic 79 Blood Pressure Source Monitor Blood Pressure Position Semi-Fowlers Blood Pressure Location Left Arm Pulse Ox 98 Oxygen Delivery Method Room Air 01/11/25 13:52 01/11/25 13:54 01/11/25 13:54 Temperature Temperature Source Pulse Rate 89 87 Respiratory Rate Respiratory Effort Respiratory Depth Respiratory Pattern Blood Pressure Blood Pressure Mean BP Systolic BP Diastolic Blood Pressure Source Blood Pressure Position Blood Pressure Location Pulse Ox 98 Oxygen Delivery Method 01/11/25 14:07 01/11/25 14:07 01/11/25 14:09 Temperature Temperature Source Pulse Rate 89 84 Respiratory Rate Respiratory Effort Respiratory Depth Respiratory Pattern Blood Pressure 139/84 H Blood Pressure Mean BP Systolic 139 BP Diastolic 84 Blood Pressure Source Blood Pressure Position Blood Pressure Location Pulse Ox Oxygen Delivery Method 01/11/25 14:09 01/11/25 15:30 01/11/25 15:30 Temperature Temperature Source Pulse Rate 88 Respiratory Rate Respiratory Effort Respiratory Depth Respiratory Pattern Blood Pressure 114/80 Blood Pressure Mean BP Systolic 114 BP Diastolic 80 Blood Pressure Source Blood Pressure Position Blood Pressure Location Pulse Ox 97 Oxygen Delivery Method 01/11/25 15:46 01/11/25 16:00 01/11/25 16:00 Temperature 98.5 F Temperature Source Temporal Temporal Pulse Rate 93 108 H Respiratory Rate 14 16 Respiratory Effort Respiratory Depth Respiratory Pattern Blood Pressure 123/83 H 124/85 H Blood Pressure Mean 96 98 BP Systolic BP Diastolic Blood Pressure Source Monitor Monitor Blood Pressure Position Semi-Fowlers Semi-Fowlers Blood Pressure Location Left Arm Pulse Ox 98 98 Oxygen Delivery Method Room Air Room Air 01/11/25 16:01 01/11/25 16:01 01/11/25 16:05 Temperature Temperature Source Pulse Rate 91 89 Respiratory Rate Respiratory Effort Respiratory Depth Respiratory Pattern Blood Pressure 123/83 H Blood Pressure Mean BP Systolic 123 BP Diastolic 83 Blood Pressure Source Blood Pressure Position Blood Pressure Location Pulse Ox Oxygen Delivery Method 01/11/25 16:05 01/11/25 16:10 01/11/25 16:10 Temperature Temperature Source Pulse Rate 97 Respiratory Rate Respiratory Effort Respiratory Depth Respiratory Pattern Blood Pressure Blood Pressure Mean BP Systolic BP Diastolic Blood Pressure Source Blood Pressure Position Blood Pressure Location Pulse Ox 97 97 Oxygen Delivery Method 01/11/25 16:11 01/11/25 16:11 01/11/25 16:15 Temperature Temperature Source Pulse Rate 95 95 Respiratory Rate Respiratory Effort Respiratory Depth Respiratory Pattern Blood Pressure 124/85 H Blood Pressure Mean BP Systolic 124 BP Diastolic 85 Blood Pressure Source Blood Pressure Position Blood Pressure Location Pulse Ox Oxygen Delivery Method 01/11/25 16:15 01/11/25 16:15 01/11/25 16:15 Temperature 98.1 F Temperature Source Temporal Temporal Pulse Rate 94 Respiratory Rate 16 Respiratory Effort Respiratory Depth Respiratory Pattern Blood Pressure Blood Pressure Mean BP Systolic BP Diastolic Blood Pressure Source Monitor Blood Pressure Position Semi-Fowlers Blood Pressure Location Left Arm Pulse Ox 97 98 Oxygen Delivery Method Room Air Weight Weight: 156 lb 4.924 oz Body Mass Index (BMI) 25.2 Physical Exam Const alert, oriented x3, no apparent distress and healthy appearing General Appearance: cooperative; Negative for anxious HEENT normocephalic Face and Sinus: normal facial exam Eyes EOMs intact bilaterally and no scleral icterus General Eye: normal appearance of both eyes Neck full ROM and supple Lymph Lymphatic: no lymphadenopathy noted Resp normal respiratory effort Effort and Inspection: able to speak in complete sentences Cardio regular rate GI soft to palpation and non-tender Inspection: gravid Palpation: soft; Negative for tender Extremity normal to inspection, full ROM and no clubbing, cyanosis or edema General Extremity: Negative for calf tenderness or edema Skin Lesions: no lesions Rashes: no rashes Psych mental status grossly normal Labs Labs Labs: Blood Type B POSITIVE Antibody Screen NEGATIVE Hct 30.8 % (37-47) L Hgb 10.7 g/dL (12.0-15.0) L Obstetrics Ultrasound Syphilis Total Ab Nonreactive (Nonreactive) Rubella IgG Antibody REAC (Nonreactive) Hep Bs Antigen Nonreactive (Nonreactive) Hepatitis C Antibody Nonreactive (Nonreactive) Chlamydia DNA (ENRIQUE) Negative (Negative) N.gonorrhoeae DNA (ENRIQUE) Negative (Negative) HIV 1&2 Antibody Nonreactive (Nonreactive) Glucose 1 Hr 50 gm 87 mg/dL (70-140) Assessment & Plan (1) Elevated blood pressure affecting in second trimester, antepartum: COMMENT: labs. to [facility] (2) Headache in : QUALIFIERS: Trimester: second trimester Qualified Code(s): O26.892 - Other specified related conditions, second trimester; R51.9 - Headache, unspecified COMMENT: no vision changes. To [facility], labs (3) Supervision of high-risk : QUALIFIERS: Trimester: first trimester Qualified Code(s): O09.91 - Supervision of high risk , unspecified, first trimester COMMENT: PRR G1, ZACK 04/05/25, boy Onofre : Emeterio (4) : QUALIFIERS: Weeks of gestation: 25 weeks Qualified Code(s): Z3A.25 - 25 weeks gestation of COMMENT: declined carrier and ntd screen. NIPT-low risk, gender male. nl anatomy. (5) Fibromyalgia: (6) Epigastric pain during , antepartum: PLAN: Plan starting mag and steroids, q 2 hr bp assessments. (now normal pressures) will re-evaluate labs tomorrow collecting 24 hour urine. 01/11/25 1626 Cosigner Signature (if applicable): CC: Dr. Yduith Harper DO; No Primary Care Physician~ Signed ADDENDUM by Dr. Yudith Harper DO on 01/11/25 at 1627 Visit Charges Inpatient E&M: 58918 Init Hosp L3 01/11/25 1627 Cosigner Signature (if applicable): cc: Dr. Yudith Harper DO; No Primary Care Physician ~* Signed [facility]09-16-2025 Radiology Diagnostic study note [facility] Imaging Services [address] [place] [address] Liver MR#: [id number] Acct: [id number] Name: LEONOR HAGER Rep #: [id number] : 2000 F 24 From: Shahla Osorio MD PCP: Care Physician,No Primary Status: REG CLI Study:Liver Date of Exam: 01/11/25 Exam# [id number] Ordering Dr: Mally Maldonado CNM PROCEDURE: LIVER 01/11/2025 REASON FOR EXAM: RUQ PAIN TECHNIQUE: Procedure Code: USLI Modality: US Procedure: LIVER COMPARISON: None FINDINGS: Liver: Liver measures 15.3 cm. There is echogenic structure within right hepatic lobe measuring 1.3x 1.3 x 1.3 cm. Gallbladder: Unremarkable gallbladder with wall thickness of 2.2 mm. Common bile duct: Normal measuring 1.3 mm Pancreas: Visualized portions are sonographically unremarkable. Other: Mild right hydronephrosis.. Right kidney measures 11 cm. US/Liver IMPRESSION: Echogenic structure within right hepatic lobe measuring 1.3 cm. Findings are likely related to underlying hemangioma. MRI correlation on nonemergent basis can be obtained if clinically indicated. Mild right hydronephrosis. Reading Location: [id number] CC: UVALDO Maldonado; No Primary Care Physician ~ [employer] Investigator: Signed [facility]09-16-2025 Radiology Diagnostic study note [facility] Imaging Services [address] [place] [id number] OB Limited With Biometrics MR#: [id number] Acct: [id number] Name: LEONOR HAGER Rep #: [id number] : 2000 F 24 From: Albin Zhang MD PCP: Care Physician,No Primary Status: REG CLI Study:OB Limited With Biometrics Date of Exam : 01/11/25 Exam# [id number] Ordering Dr: Yudith Singh DO PROCEDURE: OB LIMITED WITH BIOMETRICS 01/11/2025 REASON FOR EXAM: PRE-ECLAMPSIA TECHNIQUE: Procedure Code: USOBGROWTH Modality: US Procedure: OB LIMITED WITH BIOMETRICS COMPARISON: None FINDINGS Number: 1 Position: Vertex Placental Position: Posterior and not low-lying. Placental Abnormalities: No evidence of previa. DIMENSIONS: Biparietal Diameter: 7.4 cm: 29 weeks and 4 days: 84 percentile/ Head Circumference: 27.7 cm: 30 weeks and 2 days: 86 percentile/ Abdominal Circumference: 24.8 cm: 29 weeks and 0 days: 74 percentile/ Femur Length: 5.2 cm: 27 weeks and 4 days: 23rd percentile/ ESTIMATED WEIGHT: 1271 g plus/-188 g ESTIMATED WEIGHT PERCENTILE (24+ weeks): 65 ESTIMATED GESTATIONAL AGE: Baseline: 28 weeks and 0 days By Ultrasound: 29 weeks and 2 days ESTIMATED DATE OF DELIVERY: Baseline: April 05, 2024 By Ultrasound: March 27, 2025 BIOPHYSICAL ASSESSMENT: Amniotic Fluid Volume: 5.9 cm Amniotic Fluid Index: 15.5 cm (8-24 cm normal range) Cardiac Motion: 137 beats per minute (average) Trunk and Limb Motion: Present. MATERNAL ANATOMY: Adnexa: Neither maternal ovary is successfully identified. US/OB Limited With Biometrics IMPRESSION: Single live intrauterine gestation with mean gestational age of 29 weeks and 2 days. Reading Location: [facility] CC: Dr. Yudith Harper, DO; No Primary Care Physician ~ [employer] Investigator: Signed [facility]08-28-2025 [facility] [address], [address] [place] [address] OFFICE VISIT Date of Service: 12/23/24 MR#: [id number] Acct: [id number] Name: LEONOR HAGER Rep #: [id number] : 2000 Provider: UVALDO Maldonado Age/Sex: 24/F [place] [facility] [place]: Signed Intake Vital Signs 11/26/24 09:45 12/16/24 12:15 12/23/24 09:25 Height 5 ft 6 in 5 ft 6 in 5 ft 6 in Weight: 151 lb 8 oz BMI 24.4 BP 132/87 H Intake Visit Reasons: 25wk ob Chief Complaint: 25wk ob Bolt Labeler Required: No Is patient in pain?: No Allergies latex Allergy (Mild, Verified 12/23/24 09:26) Rash Medications 3 ?Medication ?Instructions ?Recorded ?Confirmed ?Type docosahexaenoic acid 200 mg mg PO supplement 08/13/24 12/23/24 History capsule ( DHA) Last Menstrual Period: 06/29/24 : No PFSH PFSH Medical History History of migraine headaches Family History Father Asthma Mother Blood clot in abdominal vein Hypertension Factor V Leiden Grandmother Breast cancer Grandfather Hypertension Myocardial infarction, Onset Age: 42 and at age 61 Grandfather Myocardial infarction Social History adopted: No household members: spouse current occupational status: student 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 current occupational exposures/hazards: No pets and animals: No history of recent travel: Yes ( - June 2024) out of state: Yes out of country: No sexually active: Yes Smoking Status: Never smoker alcohol intake: never substance use type: does not use well-balanced diet: daily or most days caffeine: Yes Type: coffee eating out: 1-3 times/week during the past year weight has: remained stable what type of physical activity do you participate in: walking frequency: 3-4 times per week duration: 15-30 minutes/day melvina/presybeterian: Uatsdin seatbelt use: always do you feel safe at home: Yes additional social history: : [employer] - [employer]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 OB Visit ZACK Calculator Estimated Delivery Date Method Current WG Current Estimate 04/05/25 LMP (Certain) 25w 2d Other Estimates 04/03/25 Ultrasound #1 25w 4d Expected Delivery Route/Plan Labor Preferences- CB/BF classes: [] labor support person: [] labor intervention preferences: [] pain management options preferred: [] cut cord/dad catch: [] : [] PP control planned: [] discussed possible routes of delivery and associated risks: [] special requests: [] Specific Issue/Plans Covid status: [] Flu vaccine: [] Tdap vaccine: [] Rhogam: [] LARC form signed: [] Problem list reviewed and updated with the most current plan of care details and appropriate ordersplaced. Relevant counseling for the gestational age provided. Continue routine care and follow up unless otherwise noted in visit notes/problem list details Initial Weight: Not Recorded Date -?-?-?-?-?-?-?-?-?-?-?-?- EGA Weight BP Urine Prot -?-?-?-?-?-?-?-?-?-?-?-?- Glucose FHR FuHt Pres Dilation -?-?-?-?-?-?-?-?-?-?-?-?- Effaced St Visit Note 08/27/24 -?-?-?-?-?-?-?-?--?-?-?-?- 8w 3d 130 lb 6 oz 126/75 -?-?-?-?-?-?-?-?-?-?-?-?- 161 -?-?-?-?-?-?-?-?-?-?-?-?- JV- CRL is consi stent with LMP. Desires NIPT. 09/27/24 -?-?-?-?-?-?-?-?-?-?-?-?- 12w 6d 134 lb 2 oz 119/86 Nega tive -?-?-?-?-?-?-?-?-?-?-?-?- Negative 168 -?-?-?-?-?-?-?-?-?-?-?-?- MH-No VB. Nausea improving. Br US to confirm FHT. PN labs and NIPT today 11/26/24 -?-?-?-?-?-?-?-?-?-?-?-?- 21w 3d 146 lb 3 oz 136/86 Nega tive -?-?-?-?--?-?-?-?-?-?-?-?- Negative 150 -?-?-?-?-?-?-?-?-?-?-?-?- SM- no vb lof go od fm no regular ctx nl anatomy 12/23/24 -?-?-?-?-?-?-?-?-?-?-?-?- 25w 2d 151 lb 8 oz 132/87 Nega tive -?-?-?-?-?-?-?-?-?-?-?-?- Negative 155 25 -?-?-?-?-?-?-?-?-?-?-?-?- KW- no vb/crampi ng. good fm. glucose next visit. ACOG First Trimester First Trimester: Discussed ROS Const Reports system reviewed and no additional complaints, except as documented Eyes Reports system reviewed and no additional complaints, except as documented ENT Reports system reviewed and no additional complaints, except as documented Card Reports system reviewed and no additional complaints, except as documented Resp Reports system reviewed and no additional complaints, except as documented GI Reports system reviewed and no additional complaints, except as documented, Denies nausea and Denies vomiting Reports system reviewed and no additional complaints, except as documented Musc Reports system reviewed and no additional complaints, except as documented Skin/Breast Reports system reviewed and no additional complaints, except as documented Neuro Yes system reviewed and no additional complaints, except as documented Psych Reports system reviewed and no additional complaints, except as documented Endo Reports system reviewed and no additional complaints, except as documented Geoffrey/Lymph Reports system reviewed and no additional complaints, except as documented Aller/Immun Reports system reviewed and no additional complaints, except as documented Exam Const General: cooperative, healthy appearing and no acute distress Orientation: alert, awake and oriented x3 Neck Neck: normal visual inspection and full ROM Resp Effort & Inspection: normal respiratory effort, able to speak in complete sentences and symmetric chest movement GI Inspection: normal to inspection Palpation: soft and other Other: gravid Skin General: no rashes or lesions noted Neuro General: patient alert, patient awake and patient oriented x3 Cognition: normal cognition Speech: speech normal Gait: normal gait Motor: muscle tone normal throughout Extrem General: normal to inspection and full ROM Psych Appearance: grossly normal Mental Status: mental status grossly normal Mood: congruent mood Affect: normal affect Speech and Movement: speech and movement normal Attitude: cooperative Thought Process: normal Thought Content: normal Judgment: judgment good Results POC Urinalysis 2 Dip (Clinic) Office Urine Glucose Negative Last Edit by Tarsha Bright on 12/23/24 09:34 Office Urine Protein Negative Last Edit by Tarsha Bright on 12/23/24 09:34 Coding Level of Care Code OB Routine Diagnoses Supervision of high risk in first trimester O09.91 Trimester: first trimester 25 weeks gestation of Z3A.25 Weeks of gestation: 25 weeks Fibromyalgia M79.7 Assessment and Plan Assessment and Plan (1) Supervision of high-risk : Status: Acute Qualifiers: Trimester: first trimester Qualified Code(s): O09.91 - Supervision of high risk , unspecified, first trimester Comment: PRR G1, ZACK 04/05/25, boy Onofre : Emeterio (2) : Status: Acute Qualifiers: Weeks of gestation: 25 weeks Qualified Code(s): Z3A.25 - 25 weeks gestation of Comment: declined carrier and ntd screen. NIPT-low risk, gender male. nl anatomy. (3) Fibromyalgia: Status: Acute Orders: Orders POC Urinalysis 2 Dip (Clinic) Today Plan Details Additional Comments: ACOG trimester education reviewed and updated. see problem list details for updated plan management information and see below for orders placed atthis visit. GA appropriate handout given. 12/23/24 0944 s UVALDO> Date _ Mally Maldonado CNM Cosigner Signature: Date (if applicable) CC: ~ [facility]08-01-2025 Evaluation note* Diagnosis Onset Date Resolution Status Admit Date Fibromyalgia acute November 26, 2024 9:37am acute November 26 9:37am Supervision of high-risk acute November 26, 2024 9:37am Fibromyalgia acute December 23, 2024 9:22am acute December 23, 2 025 9:22am Supervision of high-risk acute December 23 9:22am Elevated blood pressure affecting in second trimester, antepartum acute January 11, 2025 9:22am Fibromyalgia acute January 112024 9:22am Headache in acute Dec 9:22am acute December 9:22am Supervision of high-risk acute January 11, 2025 9:22am Elevated blood pressure affecting in second trimester, antepartum acute January 11, 2025 9:30am Epigastric pain during , antepartum acute January 11, 2025 9:30am Fibromyalgia acute January 112024 9:30am Headache in acute [facility] 2024 9:30am acute December 9:30am Supervision of high-risk acute January 11, 2025 9:30am Elevated blood pressure affecting in second trimester, antepartum acute January 17, 2025 9:22am Epigastric pain during , antepartum acute January 17, 2025 9:22am Fibromyalgia acute January 172024 9:22am Headache in acute [facility] 2024 9:22am acute December 9:22am Supervision of high-risk acute January 17, 2025 9:22am Elevated blood pressure affecting in second trimester, antepartum acute January 21, 2025 2:05pm Epigastric pain during , antepartum acute January 21, 2025 2:05pm Fibromyalgia acute January 212024 2:05pm Headache in acute Dec 2:05pm acute December 2:05pm Supervision of high-risk acute January 21, 2025 2:05pm [facility] Work Phone: 1(305) 310-104908-01-2025 Evaluation note* Diagnosis Onset Date Resolution Status Admit Date Fibromyalgia acute November 26, 2024 9:37am acute November 26 9:37am Supervision of high-risk acute November 26, 2024 9:37am Fibromyalgia acute December 23, 2024 9:22am acute December 23, 2 025 9:22am Supervision of high-risk acute December 23 9:22am Elevated blood pressure affecting in second trimester, antepartum acute January 11, 2025 9:22am Fibromyalgia acute January 112024 9:22am Headache in acute [facility] 2024 9:22am acute December 9:22am Supervision of high-risk acute January 11, 2025 9:22am Elevated blood pressure affecting in second trimester, antepartum acute January 11, 2025 9:30am Epigastric pain during , antepartum acute January 11, 2025 9:30am Fibromyalgia acute January 112024 9:30am Headache in acute Dec 9:30am acute December 9:30am Supervision of high-risk acute January 11, 2025 9:30am Elevated blood pressure affecting in second trimester, antepartum acute January 17, 2025 9:22am Epigastric pain during , antepartum acute January 17, 2025 9:22am Fibromyalgia acute January 172024 9:22am Headache in acute [facility] 2024 9:22am acute December 9:22am Supervision of high-risk acute January 17, 2025 9:22am Elevated blood pressure affecting in second trimester, antepartum acute January 21, 2025 2:05pm Epigastric pain during , antepartum acute January 21, 2025 2:05pm Fibromyalgia acute January 212024 2:05pm Headache in acute Dec 2:05pm acute December 2:05pm Supervision of high-risk acute January 21, 2025 2:05pm Elevated blood pressure affecting in second trimester, antepartum acute January d2024 9:19am Epigastric pain during , antepartum acute January d2024 9:19am Fibromyalgia acute January 27, 2025 9:19am Headache in acute Jan 9:19am acute January 27 025 9:19am Supervision of high-risk acute January 27 9:19am [facility] Work Phone: 1(198) 170-534608-01-2025 Evaluation note* Diagnosis Onset Date Resolution Status Admit Date Fibromyalgia acute November 26, 2024 9:37am acute November 26 9:37am Supervision of high-risk acute November 26, 2024 9:37am Fibromyalgia acute December 23, 2024 9:22am acute December 23, 2 025 9:22am Supervision of high-risk acute December 23 9:22am Fibromyalgia acute January 112024 9:22am acute December 9:22am Supervision of high-risk acute January 11, 2025 9:22am Elevated blood pressure affecting in second trimester, antepartum resolved January 11, 2025 9:22am Headache in resolved [facility] 2024 9:22am Fibromyalgia acute January 112024 9:30am acute December 9:30am Supervision of high-risk acute January 11, 2025 9:30am Elevated blood pressure affecting in second trimester, antepartum resolved January 11, 2025 9:30am Epigastric pain during , antepartum resolved January 11, 2025 9:30am Headache in resolved Dec 9:30am Fibromyalgia acute January 172024 9:22am acute December 9:22am Supervision of high-risk acute January 17, 2025 9:22am Elevated blood pressure affecting in second trimester, antepartum resolved January 17, 2025 9:22am Epigastric pain during , antepartum resolved January 17, 2025 9:22am Headache in resolved Dec 9:22am Fibromyalgia acute January 212024 2:05pm acute December 2:05pm Supervision of high-risk acute January 21, 2025 2:05pm Elevated blood pressure affecting in second trimester, antepartum resolved January 21, 2025 2:05pm Epigastric pain during , antepartum resolved January 21, 2025 2:05pm Headache in resolved [facility]2024 2:05pm Fibromyalgia acute January 27, 2025 9:19am acute January 27 9:19am Supervision of high-risk acute January 27 9:19am Elevated blood pressure affecting in second trimester, antepartum resolved January 9:19am Epigastric pain during , antepartum resolved January 9:19am Headache in resolved [facility]2024 9:19am Anemia affecting i n third trimester acute February 02 8:48am Fibromyalgia acute February 02, 2025 8:48am acute February 02 025 8:48am Supervision of high-risk acute February 02 8:48am Headache in resolved Jan 8:48am [facility] Work Phone: 1(787) 787-192308-01-2025 Evaluation note* Diagnosis Onset Date Resolution Status Admit Date Fibromyalgia acute November 26, 2024 9:37am acute November 26 9:37am Supervision of high-risk acute November 26, 2024 9:37am Fibromyalgia acute December 23, 2024 9:22am acute December 23, 025 9:22am Supervision of high-risk acute December 23 9:22am Fibromyalgia acute January 112024 9:22am acute December 9:22am Supervision of high-risk acute January 11, 2025 9:22am Elevated blood pressure affecting in second trimester, antepartum resolved January 11, 2025 9:22am Headache in resolved Dec 9:22am Fibromyalgia acute January 112024 9:30am acute December 9:30am Supervision of high-risk acute January 11, 2025 9:30am Elevated blood pressure affecting in second trimester, antepartum resolved January 11, 2025 9:30am Epigastric pain during , antepartum resolved January 11, 2025 9:30am Headache in resolved Dec 9:30am Fibromyalgia acute January 172024 9:22am acute December 9:22am Supervision of high-risk acute January 17, 2025 9:22am Elevated blood pressure affecting in second trimester, antepartum resolved January 17, 2025 9:22am Epigastric pain during , antepartum resolved January 17, 2025 9:22am Headache in resolved Dec 9:22am Fibromyalgia acute January 212024 2:05pm acute December 2:05pm Supervision of high-risk acute January 21, 2025 2:05pm Elevated blood pressure affecting in second trimester, antepartum resolved January 21, 2025 2:05pm Epigastric pain during , antepartum resolved January 21, 2025 2:05pm Headache in resolved Dec 2:05pm Fibromyalgia acute January 27, 2025 9:19am acute January 27 9:19am Supervision of high-risk acute January 27 9:19am Elevated blood pressure affecting in second trimester, antepartum resolved January 9:19am Epigastric pain during , antepartum resolved January 9:19am Headache in resolved Jan 9:19am Anemia affecting i n third trimester acute February 02 8:48am Fibromyalgia acute February 02, 2025 8:48am acute February 02 8:48am Supervision of high-risk acute February 02 8:48am Headache in resolved Jan 8:48am Threatened labor acute February 05, 2025 12:10pm Anemia affecting i n third trimester acute February 16 8:34am Fibromyalgia acute January 8:34am acute February 16, 2025 8:34am Supervision of high-risk acute February 16 8:34am Threatened labor acute February 16, 2025 8:34am [facility] Work Phone: 1([phone]) 862-476208-01-2025 Evaluation note* Diagnosis Onset Date Resolution Status Admit Date Fibromyalgia acute November 26, 2024 9:37am acute November 26 9:37am Supervision of high-risk acute November 26, 2024 9:37am Fibromyalgia acute December 23, 2024 9:22am acute December 23 9:22am Supervision of high-risk acute December 23 9:22am Fibromyalgia acute January 112024 9:22am acute December 9:22am Supervision of high-risk acute January 11, 2025 9:22am Elevated blood pressure affecting in second trimester, antepartum resolved January 11, 2025 9:22am Headache in resolved Dec 9:22am Fibromyalgia acute January 112024 9:30am acute December 9:30am Supervision of high-risk acute January 11, 2025 9:30am Elevated blood pressure affecting in second trimester, antepartum resolved January 11, 2025 9:30am Epigastric pain during , antepartum resolved January 11, 2025 9:30am Headache in resolved [facility] 2024 9:30am Fibromyalgia acute January 172024 9:22am acute December 9:22am Supervision of high-risk acute January 17, 2025 9:22am Elevated blood pressure affecting in second trimester, antepartum resolved January 17, 2025 9:22am Epigastric pain during , antepartum resolved January 17, 2025 9:22am Headache in resolved [facility] 2024 9:22am Fibromyalgia acute January 212024 2:05pm acute December 2:05pm Supervision of high-risk acute January 21, 2025 2:05pm Elevated blood pressure affecting in second trimester, antepartum resolved January 21, 2025 2:05pm Epigastric pain during , antepartum resolved January 21, 2025 2:05pm Headache in resolved [facility]2024 2:05pm Fibromyalgia acute January 27, 2025 9:19am acute January 27 9:19am Supervision of high-risk acute January 27 9:19am Elevated blood pressure affecting in second trimester, antepartum resolved January 9:19am Epigastric pain during , antepartum resolved January 9:19am Headache in resolved Jan 9:19am Anemia affecting i n third trimester acute February 02 8:48am Fibromyalgia acute February 02, 2025 8:48am acute February 02 8:48am Supervision of high-risk acute February 02 8:48am Headache in resolved Jan 8:48am Threatened labor acute February 05, 2025 12:10pm Anemia affecting i n third trimester acute February 16 8:34am Fibromyalgia acute January 8:34am acute February 16, 2025 8:34am Supervision of high-risk acute February 16 8:34am Threatened labor acute February 16, 2025 8:34am Anemia affecting i n third trimester acute February 24 10:56am Fibromyalgia acute January 10:56am acute February 24, 2025 10:56am Supervision of high-risk acute February 24 10:56am Threatened labor acute February 24, 2025 10:56am [employer] [facility] Work Phone: 1([phone]) 775-582906-02-2025 Evaluation note* Diagnosis Onset Date Resolution Status Admit Date Fibromyalgia acute September 27 2:01pm acute September 27, 2024 2:01pm Supervision of high-risk acute September 27, 2024 2 :01pm Elevated blood pressure reading in office without diagnosis of hypertension resolved September 272024 2:01pm Generalized headaches resolved Sep 2:01pm Tachycardia resolved September 27 2:01pm Fibromyalgia acute November 26, 2024 9:37am acute November 26 9:37am Supervision of high-risk acute November 26, 2024 9:37am Fibromyalgia acute December 23, 2024 9:22am acute December 23, 2 025 9:22am Supervision of high-risk acute December 23 9:22am Fibromyalgia acute January 112024 9:22am acute December 9:22am Supervision of high-risk acute January 11, 2025 9:22am [employer] Work Phone: 1(456) 958-608906-02-2025 Evaluation note* Diagnosis Onset Date Resolution Status Admit Date Fibromyalgia acute September 27 2:01pm acute September 27, 2024 2:01pm Supervision of high-risk acute September 27, 2024 2 :01pm Elevated blood pressure reading in office without diagnosis of hypertension resolved September 272024 2:01pm Generalized headaches resolved Sep 2:01pm Tachycardia resolved September 27 2:01pm Fibromyalgia acute November 26, 2024 9:37am acute November 26 9:37am Supervision of high-risk acute November 26, 2024 9:37am Fibromyalgia acute December 23, 2024 9:22am acute December 23, 2 025 9:22am Supervision of high-risk acute [place] [address], 202 5 9:22am Elevated blood pressure affecting in second trimester, antepartum acute January 11, 2025 9:22am Fibromyalgia acute January 112024 9:22am Headache in acute Dec 9:22am acute December 9:22am Supervision of high-risk acute January 11, 2025 9:22am Elevated blood pressure affecting in second trimester, antepartum acute January 11, 2025 9:30am Epigastric pain during , antepartum acute January 11, 2025 9:30am Fibromyalgia acute January 112024 9:30am Headache in acute Sep 2024 9:30am acute December 9:30am Supervision of high-risk acute January 11, 2025 9:30am [facility] Work Phone: 1(657) 487-341206-02-2025 Evaluation note* Diagnosis Onset Date Resolution Status Admit Date Fibromyalgia acute September 27 2:01pm acute September 27, 2024 2:01pm Supervision of high-risk acute September 27, 2024 2 :01pm Elevated blood pressure reading in office without diagnosis of hypertension resolved September 272024 2:01pm Generalized headaches resolved Sep 2:01pm Tachycardia resolved September 27 2:01pm Fibromyalgia acute November 26, 2024 9:37am acute November 26 9:37am Supervision of high-risk acute November 26, 2024 9:37am Fibromyalgia acute December 23, 2024 9:22am acute December 23, 2 025 9:22am Supervision of high-risk acute December 23 9:22am Elevated blood pressure affecting in second trimester, antepartum acute January 11, 2025 9:22am Fibromyalgia acute January 112024 9:22am Headache in acute Dec 9:22am acute December 9:22am Supervision of high-risk acute January 11, 2025 9:22am Elevated blood pressure affecting in second trimester, antepartum acute January 11, 2025 9:30am Epigastric pain during , antepartum acute January 11, 2025 9:30am Fibromyalgia acute January 112024 9:30am Headache in acute Dec 9:30am acute December 9:30am Supervision of high-risk acute January 11, 2025 9:30am Elevated blood pressure affecting in second trimester, antepartum acute January 17, 2025 9:22am Epigastric pain during , antepartum acute January 17, 2025 9:22am Fibromyalgia acute January 172024 9:22am Headache in acute [facility] 2024 9:22am acute December 9:22am Supervision of high-risk acute January 17, 2025 9:22am Elevated blood pressure affecting in second trimester, antepartum acute January 21, 2025 2:05pm Epigastric pain during , antepartum acute January 21, 2025 2:05pm Fibromyalgia acute January 212024 2:05pm Headache in acute Dec 2:05pm acute December 2:05pm Supervision of high-risk acute January 21, 2025 2:05pm [facility] Work Phone: 1(650) 108-965305-02-2025 Evaluation note* Diagnosis Onset Date Resolution Status Admit Date Fibromyalgia acute August 27 10:23am acute August 27, 2024 10:23am Supervision of high-risk acute August 27, 2024 10 :23am Elevated blood pressure reading in office without diagnosis of hypertension resolved August 10:23am Generalized headaches resolved August 27, 2024 10:23am Tachycardia resolved August 27, 2024 10:23am Factor V Leiden inactive August 27, 2024 10:23am Fibromyalgia acute September 27 2:01pm acute September 27, 2024 2:01pm Supervision of high-risk acute September 27, 2024 2 :01pm Elevated blood pressure reading in office without diagnosis of hypertension resolved September 272024 2:01pm Generalized headaches resolved Sep 2:01pm Tachycardia resolved September 27 2:01pm Fibromyalgia acute November 26, 2024 9:37am acute November 26 9:37am Supervision of high-risk acute November 26, 2024 9:37am [facility] Work Phone: 1(400) 510-872805-02-2025 Evaluation note* Diagnosis Onset Date Resolution Status Admit Date Fibromyalgia acute August 27 10:23am acute August 27, 2024 10:23am Supervision of high-risk acute August 27, 2024 10 :23am Elevated blood pressure reading in office without diagnosis of hypertension resolved August 10:23am Generalized headaches resolved August 27, 2024 10:23am Tachycardia resolved August 27, 2024 10:23am Factor V Leiden inactive August 27, 2024 10:23am Fibromyalgia acute September 27 2:01pm acute September 27, 2024 2:01pm Supervision of high-risk acute September 27, 2024 2 :01pm Elevated blood pressure reading in office without diagnosis of hypertension resolved September 272024 2:01pm Generalized headaches resolved Sep 2:01pm Tachycardia resolved September 27 2:01pm Fibromyalgia acute November 26, 2024 9:37am acute November 26 9:37am Supervision of high-risk acute November 26, 2024 9:37am Fibromyalgia acute December 23, 2024 9:22am acute December 23, 2 025 9:22am Supervision of high-risk acute December 23 9:22am [facility] Work Phone: 1(321) 489-779404-11-2025 Evaluation note* Diagnosis Onset Date Resolution Status Admit Date Elevated blood pressure read ing in office without diagnosis of hypertension acute August 06, 2024 10:27am Generalized headaches acute Jul 10:27am Elevated blood pressure read ing in office without diagnosis of hypertension acute August 27, 2024 10 :23am Fibromyalgia acute August 27 10:23am Generalized headaches acute August 27, 2024 10:23am acute August 27, 2024 10:23am Supervision of high-risk acute August 27, 2024 10 :23am Tachycardia acute August 27, 2024 10:23am Factor V Leiden inactive August 27, 2024 10:23am Elevated blood pressure read ing in office without diagnosis of hypertension acute September 27, 2024 2 :01pm Fibromyalgia acute September 27 2:01pm Generalized headaches acute Sep 2:01pm acute September 27, 2024 2:01pm Supervision of high-risk acute September 27, 2024 2 :01pm Tachycardia acute September 27 2:01pm [facility] Work Phone: 1(823) 456-585104-11-2025 Evaluation note* Diagnosis Onset Date Resolution Status Admit Date Elevated blood pressure reading in office without diagnosis of hypertension resolved August 06, 2024 10:27am Generalized headaches resolved Jul 10:27am Fibromyalgia acute August 27 10:23am acute August 27, 2024 10:23am Supervision of high-risk acute August 27, 2024 10 :23am Elevated blood pressure reading in office without diagnosis of hypertension resolved August 10:23am Generalized headaches resolved August 27, 2024 10:23am Tachycardia resolved August 27, 2024 10:23am Factor V Leiden inactive August 27, 2024 10:23am Fibromyalgia acute September 27 2:01pm acute September 27, 2024 2:01pm Supervision of high-risk acute September 27, 2024 2 :01pm Elevated blood pressure reading in office without diagnosis of hypertension resolved September 272024 2:01pm Generalized headaches resolved Sep 2:01pm Tachycardia resolved September 27 2:01pm Fibromyalgia acute November 26, 2024 9:37am acute November 26 9:37am Supervision of high-risk acute November 26, 2024 9:37am Elevated blood pressure reading in office without diagnosis of hypertension resolved November 26, 2024 9:37am Generalized headaches resolved Nov 9:37am Tachycardia resolved November 26 9:37am [facility] Work Phone: 1(291) 150-288204-07-2025 NoteDischarge Instructions Discharge Summary [address] [address] [id number] 08/02/2024 Patient: LEONOR HAGER Sex: Female : 2000 Age: 23y Thank you for visiting [facility]. You have been evaluated today by Edis Brooks M.D. for the following condition(s): Principal Diagnosis Acute dyspnea (unknown cause). Atypical chest pain. 1st trimester . INSTRUCTIONS No restrictions to activity. (check blood pressure occasionally; give readings to OG-UPPER CASER). Warnings: GENERAL WARNINGS: Return or contact your physician immediately if your condition worsens or changes unexpectedly, if not improving as expected, or if other problems arise. Follow-up: Follow up with an waiter and cashier in two days if not better. Patient Signature Facility Medical Services Coordinator 1 of 3 Discharge Instructions Date/Time General Instructions with ExitWriter [address] [place] [address] [id number] 08/02/2024 Patient: LEONOR HAGER Sex: Female : 2000 Age: 23y Thank you for visiting [facility]. You have been evaluated today by Edis Brooks M.D. for the following condition(s): Principal Diagnosis Acute dyspnea (unknown cause). Atypical chest pain. 1st trimester . INSTRUCTIONS No restrictions to activity. (check blood pressure occasionally; give readings to OG-UPPER CASER). Warnings: GENERAL WARNINGS: Return or contact your physician immediately if your condition worsens or changes unexpectedly, if not improving as expected, or if other problems arise. Follow-up: Follow up with an waiter and cashier in two days if not better. Activities Restrictions [address] [address] [id number] 08/02/2024 Patient: LEONOR HAGER Sex: Female : 2000 Age: 23y You have been given the following instructions regarding activity, work, and/or school. 2 of 3 Discharge Instructions No restrictions to activity. Facility Medical Services Coordinator [address] [place], [place] [id number] NoteHNO ID: [id number] Author: OBI MIN APRN.MICROBIOLOGY ANALYST Service: ? Author Type: Nurse Practitioner Type: Progress Notes Filed: 07/12/2024 11:01 Note Text: DONALD FRANCO Subjective Leonor Alarcon is a 23 year old female. Patient presents with: Sore Throat: bodyaches, chills and fever x 2 days Patient came in with complaints of sore throat fever body aches and chills for 2 days. Patient denies any other symptoms. The history is provided by the patient. No multi disciplined language analyst was used. Sore Throat Review of Systems Constitutional: Positive for chills and fever. HENT: Positive for sore throat. Objective BP 162/102 Pulse (!) 128 Temp 37.1 ?C (98.8 ?F) Resp 20 Wt 59.1 kg (130 lb 4.7 oz) SpO2 99% Physical Exam Constitutional: Appearance: Normal appearance. HENT: Right Ear: Tympanic membrane, ear canal and external ear normal. Left Ear: Tympanic membrane, ear canal and external ear normal. Mouth/Throat: Mouth: Mucous membranes are moist. Pharynx: Posterior oropharyngeal erythema present. Eyes: Pupils: Pupils are equal, round, and reactive to light. Cardiovascular: Rate and Rhythm: Normal rate and regular rhythm. Heart sounds: Normal heart sounds. Pulmonary: Effort: Pulmonary effort is normal. Breath sounds: Normal breath sounds. Neurological: Mental Status: She is alert. No past medical history on file. No past surgical history on file. ALLERGIES Patient has no known allergies. MEDICATIONS No prescriptions on file. No family history on file. Social History Tobacco Use Smoking status: Never Smokeless tobacco: Never {ASSESSMENT/PLAN: 1. Sore throat - ICD9: 462, ICD10: J02.9 (primary diagnosis) - Group A strep molecular testing negative - Discussed supportive care treatment with fluids, rest and analgesia. - Contagious dz precautions discussed- including considered contagious until on antibiotics for 24 hours - STREP A MOLECULAR (POC) 2. URI, acute - ICD9: 465.9, ICD10: J06.9 - Discussed viral etiology and rationale for treatment. - Symptomatic treatment with prn analgesia - Supportive care with fluids and rest Obi Min APRN.[facility]03-17-2025 History of Present illness Narrative* Obi Min APRN.MAURICE - 07/12/2024 10:51 AM EDT [facility] Subjective Leonor Alarcon is a 23 year old female. Patient presents with: Sore Throat: bodyaches, chills and fever x 2 days Patient came in with complaints of sore throat fever body aches and chills for 2 days. Patient denies any other symptoms. The history is provided by the patient. No multi disciplined language analyst was used. Sore Throat Review of Systems Constitutional: Positive for chills and fever. HENT: Positive for sore throat. Objective BP 162/102 Pulse (!) 128 Temp 37.1 C (98.8 F) Resp 20 Wt 59.1 kg (130 lb 4.7 oz) SpO2 99% Physical Exam Constitutional: Appearance: Normal appearance. HENT: Right Ear: Tympanic membrane, ear canal and external ear normal. Left Ear: Tympanic membrane, ear canal and external ear normal. Mouth/Throat: Mouth: Mucous membranes are moist. Pharynx: Posterior oropharyngeal erythema present. Eyes: Pupils: Pupils are equal, round, and reactive to light. Cardiovascular: Rate and Rhythm: Normal rate and regular rhythm. Heart sounds: Normal heart sounds. Pulmonary: Effort: Pulmonary effort is normal. Breath sounds: Normal breath sounds. Neurological: Mental Status: She is alert. No past medical history on file. No past surgical history on file. ALLERGIES Patient has no known allergies. MEDICATIONS No prescriptions on file. No family history on file. Social History Tobacco Use Smoking status: Never Smokeless tobacco: Never {ASSESSMENT/PLAN: 1. Sore throat - ICD9: 462, ICD10: J02.9 (primary diagnosis) - Group A strep molecular testing negative - Discussed supportive care treatment with fluids, rest and analgesia. - Contagious dz precautions discussed- including considered contagious until on antibiotics for 24 hours - STREP A MOLECULAR (POC) 2. URI, acute - ICD9: 465.9, ICD10: J06.9 - Discussed viral etiology and rationale for treatment. - Symptomatic treatment with prn analgesia - Supportive care with fluids and rest Obi Min APRN.[facility] Procedures documented in this encounterOhio[facility]24 NoteHNO ID: [id number] Author: CHASE NICOLE MD Service: ? Author Type: Physician Type: Progress Notes Filed: 03/08/2024 19:02 Note Text: Patient presents with: Cough: Cough, chest congestion and sinus pressure off and on since week of November HPI: Feeling sick recurrently for almost 3 months. She has up to a week of resolution before sinus and URI symptoms return. Her current flare has been going on for over 2 weeks. Positive symptoms: cough, sinus pressure, Chest tightness yesterday, Sore throat, Nasal Congestion, Rhinorrhea, Post nasal drainage, Nausea, Negative symptoms: Chest pain, current Fever (has had fevers this fall), Vomiting, Diarrhea, OTC: none. Has tried an antihistamine a few times without improvement in the past. No known seasonal allergies. Currently going to college and communing. She stayed home from school today. MEDICATIONS: No current outpatient medications on file. No current facility-administered medications for this visit. ALLERGIES: ALLERGIES No Known Allergies VITALS: BP 128/80 Pulse 84 Temp 36.7 ?C (98 ?F) (Tympanic) Resp 18 Wt 56.3 kg (124 lb 1.9 oz) SpO2 98% PHYSICAL EXAM: GEN: Pleasant, in no acute distress. HEENT: PERRL, EOMI, conjunctiva clear Ears: canals clear. TMs without erythema, bulge, or effusion Sinuses: non-tender frontal sinus, tender maxillary sinuses Throat: moist mucous membranes, no erythema, no exudate Neck: supple, no thyromegaly, no lymphadenopathy HEART: regular rate and rhythm, no murmurs LUNGS: clear to auscultation, no wheezes or crackles, no increased WOB ASSESSMENT/PLAN: 1. Acute non-recurrent sinusitis, unspecified location - ICD9: 461.9, ICD10: J01.90 Suspect multiple viral URIs this fall. Current episode has had sinus symptoms for over 2 weeks and may be treated for possible secondary bacterial sinusitis. - AMOXICILLIN 875 MG-POTASSIUM CLAVULANATE 125 MG TABLET Follow up with ENT or rodding anode worker for further evaluation if symptoms fail to improve. Chase Nicole [facility]11-11-2024 History of Present illness Narrative* Chase Nicole MD - 03/08/2024 6:44 PM EST Patient presents with: Cough: Cough, chest congestion and sinus pressure off and on since 2nd week of November HPI: Feeling sick recurrently for almost 3 months. She has up to a week of resolution before sinus and URI symptoms return. Her current flare has been going on for over 2 weeks. Positive symptoms: cough, sinus pressure, Chest tightness yesterday, Sore throat, Nasal Congestion,Rhinorrhea, Post nasal drainage, Nausea, Negative symptoms: Chest pain, current Fever (has had fevers this fall), Vomiting, Diarrhea, OTC: none. Has tried an antihistamine a few times without improvement in the past. No known seasonal allergies. Currently going to college and communing. She stayed home from school today. MEDICATIONS: No current outpatient medications on file. No current facility-administered medications for this visit. ALLERGIES: ALLERGIES No Known Allergies VITALS: BP 128/80 Pulse 84 Temp 36.7 C (98 F) (Tympanic) Resp 18 Wt 56.3 kg (124 lb 1.9 oz) SpO2 98% PHYSICAL EXAM: GEN: Pleasant, in no acute distress. HEENT: PERRL, EOMI, conjunctiva clear Ears: canals clear. TMs without erythema, bulge, or effusion Sinuses: non-tender frontal sinus, tender maxillary sinuses Throat: moist mucous membranes, no erythema, no exudate Neck: supple, no thyromegaly, no lymphadenopathy HEART: regular rate and rhythm, no murmurs LUNGS: clear to auscultation, no wheezes or crackles, no increased WOB ASSESSMENT/PLAN: 1. Acute non-recurrent sinusitis, unspecified location - ICD9: 461.9, ICD10: J01.90 Suspect multiple viral URIs this fall. Current episode has had sinus symptoms for over 2 weeks and may be treated for possible secondary bacterial sinusitis. - AMOXICILLIN 875 MG-POTASSIUM CLAVULANATE 125 MG TABLET Follow up with ENT or rodding anode worker for further evaluation if symptoms fail to improve. Chase Nicole MD documented in this encounterOhio[facility]09-19-2024 Telephone encounter Note * Telephone Encounter - Yisel Eubanks RN - 01/15/2024 9:59 AM EDT Patient notified of results and provider's instructions. Patient verbalizes understanding. Yisel Eubanks RN [facility]09-19-2024 Miscellaneous Notes* Telephone Encounter - Yisel Eubanks RN - 01/15/2024 9:59 AM EDT Patient notified of results and provider's instructions. Patient verbalizes understanding. Yisel Eubanks, RN * Telephone Encounter - Arleth Castillo MA - 01/15/2024 8:07 AM EDT Left VM instructing patient to return call to discuss results. Arleth Castillo MA * Telephone Encounter - Obi Min APRN.CNP - 01/15/2024 7:17 AM EDT Positive for covid. Negative for flu and rsv. Please treat with over the counter medication for supportive therapy. Thank you documented in this encounterOhiohealth [facility]in [facility]09-19-2024 Telephone encounter Note * Telephone Encounter - Arleth Castillo MA - 01/15/2024 8:07 AM EDT Left VM instructing patient to return call to discuss results. Arleth Castillo MA [facility]09-19-2024 Telephone encounter Note* Telephone Encounter - Obi Min APRN.CNP - 01/15/2024 7:17 AM EDT Positive for covid. Negative for flu and rsv. Please treat with over the counter medication for supportive therapy. Thank you [facility] Work Phone: 1(421) 663-906309-18-2024 Instructions* Patient Instructions* Tatiana Cisneros APRN.CNP - 01/14/2024 7:44 PM EDT ASSESSMENT/PLAN: 1. Viral URI with cough - ICD9: 465.9, ICD10: J06.9 - Discussed viral etiology and rationale for treatment. - Symptomatic treatment with prn analgesia - Supportive care with fluids and rest - [id number] 2 MG-30 MG-10 MG/5 ML ORAL SYRUP - COVID & INFLUENZA A/B & RSV PCR, ROUTINE - Follow-up with your PCP in 3-5 days if symptoms have not improved or sooner if symptoms worsen - Discussed red flags and need for immediate medical evaluation if any occur. - Discussed supportive care treatment with fluids, rest and analgesia. - Discussed expected course of illness Tatiana Cinseros APRN.MAURICE Treatment for Viral Upper Respiratory Tract Infections Your body will kill off the virus by itself. Additionally, you can prime your body's immune system.This may help you get better more quickly. Drink lots of fluids Make sure you are eating well Get plenty of rest We do not have any medications that kill off these viruses. Antibiotics are used to treat bacterialinfections; however, they are not active against viral infections. There are some things that mighthelp you feel better, though. Vaporizers, humidifiers, hot showers, and hot fluids help open respiratory and sinus passages [facility] Nasal [place] may offer relief of nasal and head congestion Kaleb's Vapor Rub may relieve congestion Tylenol and Advil help control fevers and headaches Salt water gargles help relieve sore throats Chloraceptic spray or throat lozenges may also help relieve sore throat symptoms Occasionally, viral infections turn into something more serious. You should see your doctor or return to the Urgent Care if: You have fevers for longer than five days You have fevers above 102 degrees You are still sick after 10 days You have shortness of breath or wheezing After several days you are getting worse rather than better documented in this encounterOhiohealth [facility]in [facility]09-18-2024 NoteHNO ID: [id number] Author: TATIANA CISNEROS APRN.MAURICE Service: ? Author Type: Nurse Practitioner Type: Progress Notes Filed: 01/14/2024 19:44 Note Text: Subjective Fever Associated symptoms include congestion, headaches, sore throat and cough. Pertinent negatives include no diarrhea and no vomiting. Leonor Alarcon is a 23 year old female who presents with 2 days of cough, congestion, fever, chills and body aches. She had a fever at home of 101 degrees F today. She took tylenol. She has been visiting family in the hospital recently. She has had some nausea and a headache. Review of Systems Constitutional: Positive for chills and fever. HENT: Positive for congestion and sore throat. Negative for ear pain. Respiratory: Positive for cough. Negative for shortness of breath. Cardiovascular: Negative. Gastrointestinal: Positive for nausea. Negative for abdominal pain, diarrhea and vomiting. Neurological: Positive for headaches. BP 135/87 Pulse (!) 122 Temp (!) 39.1 ?C (102.3 ?F) Resp 18 Wt 55.3 kg (121 lb 14.6 oz) SpO2 98% No past medical history on file. No past surgical history on file. ALLERGIES Patient has no known allergies. MEDICATIONS Dpxncpbqdvghunp-Kksbcedxi-JK (BROMFED DM) 2-30-10 mg/5 mL syrup Take 5 mL by mouth four times a day as needed. No family history on file. Social History Tobacco Use Smoking status: Never Smokeless tobacco: Never Objective Physical Exam Vitals and nursing note reviewed. Constitutional: Appearance: Normal appearance. HENT: Right Ear: Tympanic membrane, ear canal and external ear normal. Left Ear: Tympanic membrane, ear canal and external ear normal. Nose: Nose normal. Mouth/Throat: Mouth: Mucous membranes are moist. Pharynx: Oropharynx is clear. Uvula midline. No oropharyngeal exudate or posterior oropharyngeal erythema. Cardiovascular: Rate and Rhythm: Regular rhythm. Tachycardia present. Heart sounds: Normal heart sounds. Pulmonary: Effort: Pulmonary effort is normal. No respiratory distress. Breath sounds: Normal breath sounds. No wheezing or rales. Musculoskeletal: Cervical back: Neck supple. Skin: General: Skin is warm and dry. Findings: No erythema or rash. Neurological: Mental Status: She is alert. ASSESSMENT/PLAN: 1. Viral URI with cough - ICD9: 465.9, ICD10: J06.9 - Discussed viral etiology and rationale for treatment. - Symptomatic treatment with prn analgesia - Supportive care with fluids and rest - [id number]-[id number]-DH 2 MG-30 MG-10 MG/5 ML ORAL SYRUP - COVID AND INFLUENZA A/B AND RSV PCR, ROUTINE - Follow-up with your PCP in 3-5 days if symptoms have not improved or sooner if symptoms worsen - Discussed red flags and need for immediate medical evaluation if any occur. - Discussed supportive care treatment with fluids, rest and analgesia. - Discussed expected course of illness Tatiana Cisneros [facility] History of Present illness Narrative* Tatiana Cisneros APRN.MAURICE - 01/14/2024 7:39 PM EDT Subjective Fever Associated symptoms include congestion, headaches, sore throat and cough. Pertinent negatives include no diarrhea and no vomiting. Leonor Alarcon is a 23 year old female who presents with 2 days of cough, congestion, fever, chills and body aches. She had a fever at home of 101 degrees F today. She took tylenol. She has been visiting family in the hospital recently. She has had some nausea and a headache. Review of Systems Constitutional: Positive for chills and fever. HENT: Positive for congestion and sore throat. Negative for ear pain. Respiratory: Positive for cough. Negative for shortness of breath. Cardiovascular: Negative. Gastrointestinal: Positive for nausea. Negative for abdominal pain, diarrhea and vomiting. Neurological: Positive for headaches. BP 135/87 Pulse (!) 122 Temp (!) 39.1 C (102.3 F) Resp 18 Wt 55.3 kg (121 lb 14.6 oz) SpO2 98% No past medical history on file. No past surgical history on file. ALLERGIES Patient has no known allergies. MEDICATIONS Kisvztsehxlxgdl-Anmbjmvrk-BI (BROMFED DM) 2-30-10 mg/5 mL syrup Take 5 mL by mouth four times a dayas needed. No family history on file. Social History Tobacco Use Smoking status: Never Smokeless tobacco: Never Objective Physical Exam Vitals and nursing note reviewed. Constitutional: Appearance: Normal appearance. HENT: Right Ear: Tympanic membrane, ear canal and external ear normal. Left Ear: Tympanic membrane, ear canal and external ear normal. Nose: Nose normal. Mouth/Throat: Mouth: Mucous membranes are moist. Pharynx: Oropharynx is clear. Uvula midline. No oropharyngeal exudate or posterior oropharyngeal erythema. Cardiovascular: Rate and Rhythm: Regular rhythm. Tachycardia present. Heart sounds: Normal heart sounds. Pulmonary: Effort: Pulmonary effort is normal. No respiratory distress. Breath sounds: Normal breath sounds. No wheezing or rales. Musculoskeletal: Cervical back: Neck supple. Skin: General: Skin is warm and dry. Findings: No erythema or rash. Neurological: Mental Status: She is alert. ASSESSMENT/PLAN: 1. Viral URI with cough - ICD9: 465.9, ICD10: J06.9 - Discussed viral etiology and rationale for treatment. - Symptomatic treatment with prn analgesia - Supportive care with fluids and rest - [id number] 2 MG-30 MG-10 MG/5 ML ORAL SYRUP - COVID & INFLUENZA A/B & RSV PCR, ROUTINE - Follow-up with your PCP in 3-5 days if symptoms have not improved or sooner if symptoms worsen - Discussed red flags and need for immediate medical evaluation if any occur. - Discussed supportive care treatment with fluids, rest and analgesia. - Discussed expected course of illness Tatiana Cisneros APRN.MICROBIOLOGY ANALYST [facility] Viral URI with cough- Primary Acute upper respiratory infections of unspecified site documented in [facility]* Diagnosis Acute non-recurrent sinusitis, unspecified location- Primary documented in [facility]* Diagnosis Sore throat- Primary Acute pharyngitis URI, acute Acute upper respiratory infections of unspecified site documented in [facility]* Diagnosis Threatened labor, antepartum- Primary Threatened premature labor, antepartum [facility] Author Yudith Montero [facility] Note Date/Time February 05, 2025 2 :00pm [facility] Medical Records Department [address] [place] [address] OB Triage Physician Note 02/05/25 1357 MR#: [id number] Acct: [id number] Name: LEONOR HAGER Rep #:[id number] : 2000 24 From: Yudith Harper DO PCP: Care Physician,No Primary Status :REG CLI Y Location: HG081-1 HPI - General HPI Narrative LEONOR HAGER, is a 24 y/o @ 31 weeks 4 days who presents to L&D to rule out labor. She was transported at 28 weeks for threatened labor and she was sent home. her cervix per nurse exam is .5 cm today. She denies lossof fluid, vaginal bleeding, or dec fm. FFN was negative UA normal Maternal Data Information ZACK Calculator Estimated Delivery Date Method Current WG Current Estimate 04/05/25 LMP (Certain) 31w 4d Other Estimates 04/03/25 Ultrasound #1 31w 6d PFSH PFSH Medical History History of migraine headaches Home Medications ?Medication ?Instructions ?Recorded ?Last Taken ?Type docosahexaenoic acid 200 mg 200 mg PO DAILY supplement 08/13/24 01/10/25 21:00 History capsule ( DHA) 200 mg Allergy/AdvReac Type Severity Reaction Status Date / Time latex Allergy Mild Rash Verified 02/05/25 12:49 Family History Father Asthma Mother Blood clot in abdominal vein Hypertension Factor V Leiden Grandmother Breast cancer Grandfather Hypertension Myocardial infarction, Onset Age: 42 and at age 61 Grandfather Myocardial infarction Social History adopted: No household members: spouse current occupational status: student 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 current occupational exposures/hazards: No pets and animals: No history of recent travel: Yes ( - June 2024) out of state: Yes out of country: No sexually active: Yes Smoking Status: Never smoker alcohol intake: never substance use type: does not use well-balanced diet: daily or most days caffeine: Yes Type: coffee eating out: 1-3 times/week during the past year weight has: remained stable what type of physical activity do you participate in: walking frequency: 3-4 times per week duration: 15-30 minutes/day melvina/presybeterian: Uatsdin seatbelt use: always do you feel safe at home: Yes additional social history: : Emeterio - [employer]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 History 1 Elective abortions Hx Para 0 Spontaneous abortions Hx # Term Pregnancies Ectopic pregnancies Hx # Pregnancies Multiple births # of living children Visit Details Expected Delivery Route/Plan Labor Preferences- CB/BF classes: [] labor support person: [] labor intervention preferences: [] pain management options preferred: [] cut cord/dad catch: [] : [] PP control planned: [] discussed possible routes of delivery and associated risks: [] special requests: [] Plans Covid status: [] Flu vaccine: [] Tdap vaccine: declines Rhogam: na LARC form signed:yes Problem list reviewed and updated with the most current plan of care details and appropriate orders placed. Relevant counseling for the gestational age provided. Continue routine care and follow up unless otherwise noted in visit notes/problem list details OB Flowsheet Initial Weight: Not Recorded Date -?-?-?-?-?-?-?-?-?-?-?-?- EGA Weight BP Urine Prot -?-?-?-?-?-?-?-?-?-?-?-?- Glucose FHR FuHt Pres Dilation -?-?-?-?-?-?-?-?-?-?-?-?- Effaced St Visit Note 08/27/24 -?-?-?-?-?-?-?-?-?-?-?-?- 8w 3d 130 lb 6 oz 126/75 -?-?-?-?-?-?-?-?-?-?-?-?- 161 -?-?-?-?-?-?-?-?-?-?-?-?- JV- CRL is consi stent with LMP. Desires NIPT. 09/27/24 -?-?-?-?-?-?-?-?-?-?-?-?- 12w 6d 134 lb 2 oz 119/86 Nega tive -?-?-?-?-?-?-?-?-?-?-?-?- Negative 168 -?-?-?-?-?-?-?-?-?-?-?-?- MH-No VB. Nausea improving. Br US to confirm FHT. PN labs and NIPT today 11/26/24 -?-?-?-?-?-?-?-?-?-?-?-?- 21w 3d 146 lb 3 oz 136/86 Nega tive -?-?-?-?-?-?-?-?-?-?-?-?- Negative 150 -?-?-?-?-?-?-?-?-?-?-?-?- SM- no vb lof go od fm no regular ctx nl anatomy 12/23/24 -?-?-?-?-?-?-?-?-?-?-?-?- 25w 2d 151 lb 8 oz 132/87 Nega tive -?-?-?-?-?-?-?-?-?-?-?-?- Negative 155 25 -?-?-?-?-?-?-?-?-?-?-?-?- KW- no vb/crampi ng. good fm. glucose next visit. 01/11/25 -?-?-?-?-?-?-?-?-?-?-?-?- 28w 0d 156 lb 2 oz 144/96 Trac e -?-?-?-?-?-?-?-?-?-?-?-?- Negative 152 27 -?-?-?-?-?-?-?-?-?-?-?-?- MH-No VB. Good F M. Headache, elevated BP and proteinuria-labs and sent to . 01/17/25 -?-?-?-?-?-?-?-?-?-?-?-?- 28w 6d 154 lb 4 oz 155/94 135/97 139/88 Negative -?-?-?-?-?-?-?-?-?-?-?-?- Negative 145 29 -?-?-?-?-?-?-?-?-?-?-?-?- SM- no vb lof go od fm no regular ctx checking bps at home and 130s over 80s, was admitted last week - at [facility] 01/27/25 -?-?-?-?-?-?-?-?-?-?-?-?- 30w 2d 157 lb 145/85 121/88 -?-?-?-?-?-?-?--?-?-?-?-?- 140 30 -?-?-?-?-?-?-?-?-?-?-?-?- SM- no vb lof go od fm n oregular ct some hip pain. repe tabps WNL. ROS Constitutional Constitutional: Reports systems reviewed and no addt'l complaints, except as documented Gastrointestinal Gastrointestinal: Denies bloating, constipation, cramping, diarrhea, nausea or vomiting Genitourinary Genitourinary: Reports other Details: Denies vaginal odor, vaginal bleeding, or vaginal discharge ; Denies difficulty urinating or flank pain Physical Exam HEENT normocephalic Resp normal respiratory effort and normal air movement no CVA tenderness Extremity normal to inspection General Extremity: edema bilateral (trace ) NST FHR Rate Baby A Baseline: 140 Variability:: Moderate Accelerations:: 15 x 15 Decelerations:: None NST Reactive:: Yes FHR Category:: Category I Assessment & Plan (1) Threatened labor: PLAN: no signs of labor today ok to dc to home and keep follow up appts discussed PTL precautions Charges/Coding Multi Select Codes Visit Charges Office Visit/Consults: 68632 OV L3 Est 20min Urinary/Genital Urinary/Genital CPT Codes: 66382-42 non-stress test Interp 02/05/25 1400 <Electronically signed by Yudith Denton DO> Date _ Yudith Harper DO Cosigner Signature (if applicable): Date CC: Dr. Yudith Harper, ; No Primary Care Physician ~ Signed [facility] Work Phone: Hospital Discharge instructionsAdditional Instructions Follow up in the office next week and notify provider of any symptoms if they arise.[facility] Work Phone: Progress note Author Mally Maldonado [facility] Note Date/Time December 23, 2024 9: 44am [facility] [address] [place] [address], [address] [place] [address] OFFICE VISIT Date of Service: 12/23/24 MR#: [id number] Acct: [id number] Name: LEONOR HAGER Rep #: [id number] : 2000 Provider: UVALDO Maldonado Age/Sex: 24/F [place] [facility] [place]: Signed Intake Vital Signs 11/26/24 09:45 12/16/24 12:15 12/23/24 09:25 Height 5 ft 6 in 5 ft 6 in 5 ft 6 in Weight: 151 lb 8 oz BMI 24.4 BP 132/87 H Intake Visit Reasons: 25wk ob Chief Complaint: 25wk ob Bolt Labeler Required: No Is patient in pain?: No Allergies latex Allergy (Mild, Verified 12/23/24 09:26) Rash Medications 3 ?Medication ?Instructions ?Recorded ?Confirmed ?Type docosahexaenoic acid 200 mg mg PO supplement 08/13/24 12/23/24 History capsule ( DHA) Last Menstrual Period: 06/29/24 : No PFSH PFSH Medical History History of migraine headaches Family History Father Asthma Mother Blood clot in abdominal vein Hypertension Factor V Leiden Grandmother Breast cancer Grandfather Hypertension Myocardial infarction, Onset Age: 42 and at age 61 Grandfather Myocardial infarction Social History adopted: No household members: spouse current occupational status: student 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 current occupational exposures/hazards: No pets and animals: No history of recent travel: Yes ( - June 2024) out of state: Yes out of country: No sexually active: Yes Smoking Status: Never smoker alcohol intake: never substance use type: does not use well-balanced diet: daily or most days caffeine: Yes Type: coffee eating out: 1-3 times/week during the past year weight has: remained stable what type of physical activity do you participate in: walking frequency: 3-4 times per week duration: 15-30 minutes/day melvina/presybeterian: Uatsdin seatbelt use: always do you feel safe at home: Yes additional social history: : Emeterio - [employer]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 OB Visit ZACK Calculator Estimated Delivery Date Method Current WG Current Estimate 04/05/25 LMP (Certain) 25w 2d Other Estimates 04/03/25 Ultrasound #1 25w 4d Expected Delivery Route/Plan Labor Preferences- CB/BF classes: [] labor support person: [] labor intervention preferences: [] pain management options preferred: [] cut cord/dad catch: [] : [] PP control planned: [] discussed possible routes of delivery and associated risks: [] special requests: [] Specific Issue/Plans Covid status: [] Flu vaccine: [] Tdap vaccine: [] Rhogam: [] LARC form signed: [] Problem list reviewed and updated with the most current plan of care details and appropriate orders placed. Relevant counseling for the gestational age provided. Continue routine care and follow up unless otherwise noted in visit notes/problem list details Initial Weight: Not Recorded Date -?-?-?-?-?-?-?-?-?-?-?-?- EGA Weight BP Urine Prot -?-?-?-?-?-?-?-?-?-?-?-?- Glucose FHR FuHt Pres Dilation -?-?-?-?-?-?-?-?-?-?-?-?- Effaced St Visit Note 08/27/24 -?-?-?-?-?-?-?-?--?-?-?-?- 8w 3d 130 lb 6 oz 126/75 -?-?-?-?-?-?-?-?-?-?-?-?- 161 -?-?-?-?-?-?-?-?-?-?-?-?- JV- CRL is consi stent with LMP. Desires NIPT. 09/27/24 -?-?-?-?-?-?-?-?-?-?-?-?- 12w 6d 134 lb 2 oz 119/86 Nega tive -?-?-?-?-?-?-?-?-?-?-?-?- Negative 168 -?-?-?-?-?-?-?-?-?-?-?-?- MH-No VB. Nausea improving. Br US to confirm FHT. PN labs and NIPT today 11/26/24 -?-?-?-?-?-?-?-?-?-?-?-?- 21w 3d 146 lb 3 oz 136/86 Nega tive -?-?-?-?--?-?-?-?-?-?-?-?- Negative 150 -?-?-?-?-?-?-?-?-?-?-?-?- SM- no vb lof go od fm no regular ctx nl anatomy 12/23/24 -?-?-?-?-?-?-?-?-?-?-?-?- 25w 2d 151 lb 8 oz 132/87 Nega tive -?-?-?-?-?-?-?-?-?-?-?-?- Negative 155 25 -?-?-?-?-?-?-?-?-?-?-?-?- KW- no vb/crampi ng. good fm. glucose next visit. ACOG First Trimester First Trimester: Discussed ROS Const Reports system reviewed and no additional complaints, except as documented Eyes Reports system reviewed and no additional complaints, except as documented ENT Reports system reviewed and no additional complaints, except as documented Card Reports system reviewed and no additional complaints, except as documented Resp Reports system reviewed and no additional complaints, except as documented GI Reports system reviewed and no additional complaints, except as documented, Denies nausea and Denies vomiting Reports system reviewed and no additional complaints, except as documented Musc Reports system reviewed and no additional complaints, except as documented Skin/Breast Reports system reviewed and no additional complaints, except as documented Neuro Yes system reviewed and no additional complaints, except as documented Psych Reports system reviewed and no additional complaints, except as documented Endo Reports system reviewed and no additional complaints, except as documented Geoffrey/Lymph Reports system reviewed and no additional complaints, except as documented Aller/Immun Reports system reviewed and no additional complaints, except as documented Exam Const General: cooperative, healthy appearing and no acute distress Orientation: alert, awake and oriented x3 Neck Neck: normal visual inspection and full ROM Resp Effort & Inspection: normal respiratory effort, able to speak in complete sentences and symmetric chest movement GI Inspection: normal to inspection Palpation: soft and other Other: gravid Skin General: no rashes or lesions noted Neuro General: patient alert, patient awake and patient oriented x3 Cognition: normal cognition Speech: speech normal Gait: normal gait Motor: muscle tone normal throughout Extrem General: normal to inspection and full ROM Psych Appearance: grossly normal Mental Status: mental status grossly normal Mood: congruent mood Affect: normal affect Speech and Movement: speech and movement normal Attitude: cooperative Thought Process: normal Thought Content: normal Judgment: judgment good Results POC Urinalysis 2 Dip (Clinic) Office Urine Glucose Negative Last Edit by Tarsha Bright on 12/23/24 09:34 Office Urine Protein Negative Last Edit by Tarsha rBight on 12/23/24 09:34 Coding Level of Care Code OB Routine Diagnoses Supervision of high risk in first trimester O09.91 Trimester: first trimester 25 weeks gestation of Z3A.25 Weeks of gestation: 25 weeks Fibromyalgia M79.7 Assessment and Plan Assessment and Plan (1) Supervision of high-risk : Status: Acute Qualifiers: Trimester: first trimester Qualified Code(s): O09.91 - Supervision of high risk , unspecified, first trimester Comment: PRR G1, ZACK 04/05/25, boy Onofre : Emeterio (2) : Status: Acute Qualifiers: Weeks of gestation: 25 weeks Qualified Code(s): Z3A.25 - 25 weeks gestation of Comment: declined carrier and ntd screen. NIPT-low risk, gender male. nl anatomy. (3) Fibromyalgia: Status: Acute Orders: Orders POC Urinalysis 2 Dip (Clinic) Today Plan Details Additional Comments: ACOG trimester education reviewed and updated. see problem list details for updated plan management information and see below for orders placed at this visit. GA appropriate handout given. 12/23/24 0944 <Electronically signed by Mally soares CNM> Date _ Mally JUÁREZPaula Gonzalezigner Signature: Date (if applicable) CC: ~ [facility] Work Phone: Progress note Author Catie Krishnan [facility] Note Date/Time January 17, 2025 9:47am [facility] [address] [place] [address], [address] [place] [address] OFFICE VISIT Date of Service: 01/17/25 MR#: [id number] Acct: [id number] Name: LEONOR HAGER Rep #: [id number] : 2000 Provider: Dr. Kev Krishnan MD Age/Sex: 24/F [place] [facility] [place]: Signed Intake Vital Signs 01/11/25 10:15 01/17/25 09:25 01/17/25 09:28 01/17/25 09:46 Height 5 ft 6 in 5 ft 6 in 5 ft 6 in Weight: 154 lb 4 oz BMI 24.9 BP 155/94 H 135/97 H 139/88 H Intake Visit Reasons: FU after [facility] Bolt Labeler Required: No Is patient in pain?: Yes (back pain) Allergies latex Allergy (Mild, Verified 01/17/25 09:24) Rash Medications ?Medication ?Instructions ?Recorded ?Confirmed ?Type docosahexaenoic acid 200 mg mg PO supplement 08/13/24 01/17/25 History capsule ( DHA) Last Menstrual Period: 06/29/24 Zika: Zika virus screening: Negative : No PFSH PFSH Medical History History of migraine headaches Family History Father Asthma Mother Blood clot in abdominal vein Hypertension Factor V Leiden Grandmother Breast cancer Grandfather Hypertension Myocardial infarction, Onset Age: 42 and at age 61 Grandfather Myocardial infarction Social History adopted: No household members: spouse current occupational status: student 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 current occupational exposures/hazards: No pets and animals: No history of recent travel: Yes ( - June 2024) out of state: Yes out of country: No sexually active: Yes Smoking Status: Never smoker alcohol intake: never substance use type: does not use well-balanced diet: daily or most days caffeine: Yes Type: coffee eating out: 1-3 times/week during the past year weight has: remained stable what type of physical activity do you participate in: walking frequency: 3-4 times per week duration: 15-30 minutes/day melvina/presybeterian: Uatsdin seatbelt use: always do you feel safe at home: Yes additional social history: : Emeter[employer] - [employer]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 OB Visit ZACK Calculator Estimated Delivery Date Method Current WG Current Estimate 04/05/25 LMP (Certain) 28w 6d Other Estimates 04/03/25 Ultrasound #1 29w 1d Expected Delivery Route/Plan Labor Preferences- CB/BF classes: [] labor support person: [] labor intervention preferences: [] pain management options preferred: [] cut cord/dad catch: [] : [] PP control planned: [] discussed possible routes of delivery and associated risks: [] special requests: [] Specific Issue/Plans Covid status: [] Flu vaccine: [] Tdap vaccine: declines Rhogam: na LARC form signed:yes Problem list reviewed and updated with the most current plan of care details and appropriate orders placed. Relevant counseling for the gestational age provided. Continue routine care and follow up unless otherwise noted in visit notes/problem list details Initial Weight: Not Recorded Date -?-?-?-?-?-?-?--?-?-?-?-?- EGA Weight BP Urine Prot -?-?-?-?-?-?-?-?-?-?-?-?- Glucose FHR FuHt Pres Dilation -?-?-?-?-?-?-?-?-?-?-?-?- Effaced St Visit Note 08/27/24 -?-?-?-?-?-?-?-?-?-?-?-?- 8w 3d 130 lb 6 oz 126/75 -?-?-?-?-?-?-?-?-?-?-?-?- 161 -?-?-?-?-?-?-?-?-?-?-?-?- JV- CRL is consi stent with LMP. Desires NIPT. 09/27/24 -?-?-?-?-?-?-?-?-?-?-?-?- 12w 6d 134 lb 2 oz 119/86 Nega tive -?-?-?-?-?-?-?-?-?-?-?-?- Negative 168 -?-?-?-?-?-?-?-?-?-?-?-?- MH-No VB. Nausea improving. Br US to confirm FHT. PN labs and NIPT today 11/26/24 -?-?-?-?-?-?-?-?-?-?-?-?- 21w 3d 146 lb 3 oz 136/86 Nega tive -?-?-?-?-?-?-?-?-?-?-?-?- Negative 150 -?-?-?-?-?-?-?-?-?-?-?-?- SM- no vb lof go od fm no regular ctx nl anatomy 12/23/24 -?-?-?-?-?-?-?-?-?-?-?-?- 25w 2d 151 lb 8 oz 132/87 Nega tive -?-?-?-?-?-?-?-?-?-?-?-?- Negative 155 25 -?-?-?-?-?-?-?-?-?-?-?-?- KW- no vb/crampi ng. good fm. glucose next visit. 01/11/25 -?-?-?-?-?-?-?-?-?-?-?-?- 28w 0d 156 lb 2 oz 144/96 Trac e -?-?-?-?-?-?-?-?-?-?-?-?- Negative 152 27 -?-?-?-?-?-?-?-?-?-?-?-?- MH-No VB. Good F M. Headache, elevated BP and proteinuria-labs and sent to . 01/17/25 -?-?-?-?-?-?-?-?-?-?-?-?- 28w 6d 154 lb 4 oz 155/94 135/97 139/88 Negative -?-?-?-?-?-?-?-?-?-?-?-?- Negative 145 29 -?-?-?-?-?-?-?-?-?-?-?-?- SM- no vb lof go od fm no regular ctx checking bps at home and 130s over 80s, was admitted last week - at [facility] First Trimester First Trimester: Discussed Results POC Urinalysis 2 Dip (Clinic) Office Urine Glucose Negative Last Edit by Butch Puga on 01/17/25 09:29 Office Urine Protein Negative Last Edit by Butch Puga on 01/17/25 09:29 Coding Level of Care Code OB Routine Diagnoses Epigastric pain during , antepartum O26.899; R10.13 Elevated blood pressure affecting in second trimester, antepartum O16.2 headache in second trimester O26.892; R51.9 Trimester: second trimester Supervision of high risk in first trimester O09.91 Trimester: first trimester 28 weeks gestation of Z3A.28 Weeks of gestation: 28 weeks Fibromyalgia M79.7 Assessment and Plan Assessment and Plan (1) Epigastric pain during , antepartum: Status: Acute (2) Elevated blood pressure affecting in second trimester, antepartum: Status: Acute Comment: labs. to WP (3) Headache in : Status: Acute Qualifiers: Trimester: second trimester Qualified Code(s): O26.892 - Other specified related conditions, second trimester; R51.9 - Headache, unspecified Comment: no vision changes. To WP, labs (4) Supervision of high-risk : Status: Acute Qualifiers: Trimester: first trimester Qualified Code(s): O09.91 - Supervision of high risk , unspecified, first trimester Comment: PRR G1, ZACK 04/05/25, boy Onofre : Emeterio (5) : Status: Acute Qualifiers: Weeks of gestation: 28 weeks Qualified Code(s): Z3A.28 - 28 weeks gestation of Comment: declined carrier and ntd screen. NIPT-low risk, gender male. nl anatomy. (6) Fibromyalgia: Status: Acute Orders: Orders POC Urinalysis 2 Dip (Clinic) Today 01/17/25 0951 <Electronically signed by Catie pierson MD> Date _ Catie Krishnan MD Cosigner Signature: Date (if applicable) CC: ~ [facility] Work Phone: Progress note Author Mally Maldonado [facility] Note Date/Time January 21, 2025 3:27pm [facility] Medical Records Department [address] [facility] [place] [address] OB Triage Progress Note 01/21/25 1526 MR#: [id number] Acct: [id number] Name: LEONOR HAGER Rep #:[id number] : 2000 24 From: Mally Maldonado CNM PCP: Care Physician,No Primary Status :REG CLI Y DOS: Location: [place] [id number] Progress Notes Date of Service: 01/21/25 Progress Note: Patient presents for triage evaluation secondary to elevated BP at home at 28 weeks FHT: 140 Moderate variability reactive no decelerations category I tracing [place]: no Contractions Assessment and plan: normal Pre e labs, Normal serial BPs, Reactive NST, reassuring maternal and status patient discharged to home to follow-up in office . See problem list details for additional plan information. Laboratory Studies: Laboratory Tests 01/21/25 Range/Units 14:25 WBC 13.7 H (4.4-11.0) K/mm3 RBC 3.57 L (4.2-5.4) M/mm3 Hgb 10.5 L (12.0-15.0) g/dL Hct 30.1 L (37-47) % MCV 84.3 (81-99) fL MCH 29.4 (27.0-32.0) pg MCHC 34.9 (32-36) g/dL RDW Std Deviation 37.9 (35.1-43.9) fl RDW Coeff of Kelsie 12.6 (11.6-14.6) % Plt Count 365 (150-450) K/mm3 MPV 9.6 (6.2-12.0) fl Creatinine 0.61 L (0.70-1.20) mg/dL Estim Creat Clear Calc 133.13 (50-250) ml/min Est GFR (MDRD) Non-Af 128 (>60) Uric Acid 3.5 (2.6-6.0) mg/dL AST 13 (<=31) U/L ALT 9 (<=34) U/L U Random Total Protein 16.3 H (0.0-12.0) mg/dL Urine Creatinine 88.50 (28.00-217.00) mg/dL Protein/Creatinin Ratio 184 (0-200) mg/g CRE Charges/Coding Multi Select Codes Urinary/Genital Urinary/Genital CPT Codes: 18323-62 non-stress test Interp Assessment & Plan (1) Epigastric pain during , antepartum: (2) Elevated blood pressure affecting in second trimester, antepartum: COMMENT: normal labs. normal BPS on unit, reactive NST (3) Headache in : QUALIFIERS: Trimester: second trimester Qualified Code(s): O26.892 - Other specified related conditions, second trimester; R51.9 - Headache, unspecified COMMENT: no vision changes. To WP, labs (4) Supervision of high-risk : QUALIFIERS: Trimester: first trimester Qualified Code(s): O09.91 - Supervision of high risk , unspecified, first trimester COMMENT: PRR G1, ZACK 04/05/25, boy Onofre : Emeterio (5) : QUALIFIERS: Weeks of gestation: 28 weeks Qualified Code(s): Z3A.28 - 28 weeks gestation of COMMENT: declined carrier and ntd screen. NIPT-low risk, gender male. nl anatomy. (6) Fibromyalgia: 01/21/25 1527 <Electronically signed by Mlaly soares CNM> Date _ Mally Maldonado CNM Cosigner Signature (if applicable): Date CC: UVALDO Maldonado; No Primary Care Physician ~ Signed [facility] Work Phone: Progress note Author Catie Krishnan [facility] Note Date/Time January 27, 2025 10 :19am [facility] [address] [place] [address], [address] [place] [address] OFFICE VISIT Date of Service: 01/27/25 MR#: [id number] Acct: [id number] Name: LEONOR HAGER Rep #: [id number] : 2000 Provider: Dr. Kev Krishnan MD Age/Sex: 24/F [place] [facility] [place]: Signed Intake Vital Signs 11/26/24 09:45 01/21/25 14:17 01/27/25 09:35 01/27/25 09:59 Height 5 ft 6 in 5 ft 6 in 5 ft 6 in Weight: 157 lb BMI 25.3 BP 145/85 H 121/88 H Intake Visit Reasons: 30wk ob Bolt Labeler Required: No Is patient in pain?: No Allergies latex Allergy (Mild, Verified 01/27/25 09:34) Rash Medications ?Medication ?Instructions ?Recorded ?Confirmed ?Type docosahexaenoic acid 200 mg 200 mg PO DAILY supplement 08/13/24 01/27/25 History capsule ( DHA) Last Menstrual Period: 06/29/24 Zika: Zika virus screening: Negative : No PFSH PFSH Medical History History of migraine headaches Family History Father Asthma Mother Blood clot in abdominal vein Hypertension Factor V Leiden Grandmother Breast cancer Grandfather Hypertension Myocardial infarction, Onset Age: 42 and at age 61 Grandfather Myocardial infarction Social History adopted: No household members: spouse current occupational status: student 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 current occupational exposures/hazards: No pets and animals: No history of recent travel: Yes ( - June 2024) out of state: Yes out of country: No sexually active: Yes Smoking Status: Never smoker alcohol intake: never substance use type: does not use well-balanced diet: daily or most days caffeine: Yes Type: coffee eating out: 1-3 times/week during the past year weight has: remained stable what type of physical activity do you participate in: walking frequency: 3-4 times per week duration: 15-30 minutes/day melvina/presybeterian: Uatsdin seatbelt use: always do you feel safe at home: Yes additional social history: : Emeterio - [employer]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 History 1 Elective abortions Hx Para 0 Spontaneous abortions Hx # Term Pregnancies Ectopic pregnancies Hx # Pregnancies Multiple births # of living children HPI 30wk ob Details: LEONOR HAGER is a 24 year old who presents for routine OB visit. OB Visit ZACK Calculator Estimated Delivery Date Method Current WG Current Estimate 04/05/25 LMP (Certain) 30w 2d Other Estimates 04/03/25 Ultrasound #1 30w 4d Expected Delivery Route/Plan Labor Preferences- CB/BF classes: [] labor support person: [] labor intervention preferences: [] pain management options preferred: [] cut cord/dad catch: [] : [] PP control planned: [] discussed possible routes of delivery and associated risks: [] special requests: [] Specific Issue/Plans Covid status: [] Flu vaccine: [] Tdap vaccine: declines Rhogam: na LARC form signed:yes Problem list reviewed and updated with the most current plan of care details and appropriate orders placed. Relevant counseling for the gestational age provided. Continue routine care and follow up unless otherwise noted in visit notes/problem list details Initial Weight: Not Recorded Date -?-?-?-?-?-?-?-?-?-?-?-?- EGA Weight BP Urine Prot -?-?-?-?-?-?-?-?-?-?-?-?- Glucose FHR FuHt Pres Dilation -?-?-?-?-?-?-?-?-?-?-?-?- Effaced St Visit Note 08/27/24 -?-?-?-?-?-?-?-?-?-?-?-?- 8w 3d 130 lb 6 oz 126/75 -?-?-?-?-?-?-?-?-?-?-?-?- 161 -?-?-?-?-?-?-?-?-?-?-?-?- JV- CRL is consi stent with LMP. Desires NIPT. 09/27/24 -?-?-?-?-?-?-?-?-?-?-?-?- 12w 6d 134 lb 2 oz 119/86 Nega tive -?-?-?-?-?-?--?-?-?-?-?-?- Negative 168 -?-?-?-?-?-?-?-?-?-?-?-?- MH-No VB. Nausea improving. Br US to confirm FHT. PN labs and NIPT today 11/26/24 -?-?-?-?-?-?--?-?-?-?-?-?- 21w 3d 146 lb 3 oz 136/86 Nega tive -?-?-?-?-?-?-?-?-?-?-?-?- Negative 150 -?-?-?-?-?-?-?-?-?-?-?-?- SM- no vb lof go od fm no regular ctx nl anatomy 12/23/24 -?-?-?-?-?-?-?-?-?-?-?-?- 25w 2d 151 lb 8 oz 132/87 Nega tive -?-?-?-?-?-?-?-?-?-?-?-?- Negative 155 25 -?-?-?-?-?-?-?-?-?-?-?-?- KW- no vb/kwaku lopez fm. glucose next visit. 01/11/25 -?-?-?-?-?-?-?-?-?-?-?-?- 28w 0d 156 lb 2 oz 144/96 Trac e -?-?-?-?-?--?-?-?-?-?-?-?- Negative 152 27 -?-?-?-?-?-?-?-?-?-?-?-?- MH-No VB. Jose Mitchell. Headache, elevated BP and proteinuria-labs and sent to . 01/17/25 -?-?-?-?-?-?-?-?-?-?-?-?- 28w 6d 154 lb 4 oz 155/94 135/97 139/88 Negative -?-?-?-?-?-?-?-?-?-?-?-?- Negative 145 29 -?-?-?-?-?-?-?-?-?-?-?-?- SM- no vb lof go od fm no regular ctx checking bps at home and 130s over 80s, was admitted [facility] [place] 01/27/25 -?-?-?-?-?-?-?-?-?-?-?-?- 30w 2d 157 lb 145/85 121/88 -?-?-?-?-?-?-?-?-?-?-?-?- 140 30 -?-?-?-?-?-?-?-?-?-?-?-?- SM- no vb lof go od fm n oregular ct some hip pain. repe tabps WNL. ACOG First Trimester First Trimester: Discussed Coding Level of Care Code OB Routine Diagnoses Epigastric pain during , antepartum O26.899; R10.13 Elevated blood pressure affecting in second trimester, antepartum O16.2 headache in second trimester O26.892; R51.9 Trimester: second trimester Supervision of high risk in first trimester O09.91 Trimester: first trimester 30 weeks gestation of Z3A.30 Weeks of gestation: 30 weeks Fibromyalgia M79.7 Assessment and Plan Assessment and Plan (1) Epigastric pain during , antepartum: Status: Acute (2) Elevated blood pressure affecting in second trimester, antepartum: Status: Acute Comment: normal labs. normal BPS on unit, reactive NST (3) Headache in : Status: Acute Qualifiers: Trimester: second trimester Qualified Code(s): O26.892 - Other specified related conditions, second trimester; R51.9 - Headache, unspecified Comment: no vision changes. To WP, labs (4) Supervision of high-risk : Status: Acute Qualifiers: Trimester: first trimester Qualified Code(s): O09.91 - Supervision of high risk , unspecified, first trimester Comment: PRR G1, ZACK 04/05/25, boy Onofre : Emeterio (5) : Status: Acute Qualifiers: Weeks of gestation: 30 weeks Qualified Code(s): Z3A.30 - 30 weeks gestation of Comment: declined carrier and ntd screen. NIPT-low risk, gender male. nl anatomy. (6) Fibromyalgia: Status: Acute Orders: Orders POC Urinalysis 2 Dip (Clinic) Today 01/27/25 1019 <Electronically signed by Catie pierson MD> Date _ Catie Krishnan MD Cosigner Signature: Date (if applicable) CC: ~ [facility] Work Phone: Progress note Author Catie Krishnan [facility] Note Date/Time February 02, 2025 9: 15am [facility] [address] [place] [address], [address] [place] [address] OFFICE VISIT Date of Service: 02/02/25 MR#: [id number] Acct: [id number] Name: LEOONR HAGER Rep #: [id number] : 2000 Provider: Dr. Kev Krishnan MD Age/Sex: 24/F [place] [facility] [place]: Signed Intake Vital Signs 01/17/25 09:28 01/21/25 14:17 01/27/25 09:35 02/02/25 08:52 02/02/25 08:55 Height 5 ft 6 in 5 ft 6 in 5 ft 6 in 5 ft 6 in 5 ft 6 in Weight: 157 lb 160 lb BMI 25.3 25.8 BP 145/85 H 124/87 H Intake Visit Reasons: 31wk ob *per Bolt Labeler Required: No Is patient in pain?: No Allergies latex Allergy (Mild, Verified 02/02/25 08:51) Rash Medications ?Medication ?Instructions ?Recorded ?Confirmed ?Type docosahexaenoic acid 200 mg 200 mg PO DAILY supplement 08/13/24 02/02/25 History capsule ( DHA) Last Menstrual Period: 06/29/24 Zika: Zika virus screening: Negative : No PFSH PFSH Medical History History of migraine headaches Family History Father Asthma Mother Blood clot in abdominal vein Hypertension Factor V Leiden Grandmother Breast cancer Grandfather Hypertension Myocardial infarction, Onset Age: 42 and at age 61 Grandfather Myocardial infarction Social History adopted: No household members: spouse current occupational status: student 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 current occupational exposures/hazards: No pets and animals: No history of recent travel: Yes ( - June 2024) out of state: Yes out of country: No sexually active: Yes Smoking Status: Never smoker alcohol intake: never substance use type: does not use well-balanced diet: daily or most days caffeine: Yes Type: coffee eating out: 1-3 times/week during the past year weight has: remained stable what type of physical activity do you participate in: walking frequency: 3-4 times per week duration: 15-30 minutes/day melvina/presybeterian: Uatsdin seatbelt use: always do you feel safe at home: Yes additional social history: : Emeterio - [employer]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 OB Visit ZACK Calculator Estimated Delivery Date Method Current WG Current Estimate 04/05/25 LMP (Certain) 31w 1d Other Estimates 04/03/25 Ultrasound #1 31w 3d Expected Delivery Route/Plan Labor Preferences- CB/BF classes: [] labor support person: [] labor intervention preferences: [] pain management options preferred: [] cut cord/dad catch: [] : [] PP control planned: [] discussed possible routes of delivery and associated risks: [] special requests: [] Specific Issue/Plans Covid status: [] Flu vaccine: [] Tdap vaccine: declines Rhogam: na LARC form signed:yes Problem list reviewed and updated with the most current plan of care details and appropriate orders placed. Relevant counseling for the gestational age provided. Continue routine care and follow up unless otherwise noted in visit notes/problem list details Initial Weight: Not Recorded Date -?-?-?-?-?-?-?-?-?-?-?-?- EGA Weight BP Urine Prot -?-?-?-?-?-?-?-?-?-?-?-?- Glucose FHR FuHt Pres Dilation -?-?-?-?-?-?-?-?-?-?-?-?- Effaced St Visit Note 08/27/24 -?-?-?-?-?-?-?-?-?-?-?-?- 8w 3d 130 lb 6 oz 126/75 -?-?-?-?-?-?-?-?-?-?-?-?- 161 -?-?-?-?-?-?-?-?-?-?-?-?- JV- CRL is consi stent with LMP. Desires NIPT. 09/27/24 -?-?-?-?-?-?-?--?-?-?-?-?- 12w 6d 134 lb 2 oz 119/86 Nega tive -?-?-?-?-?-?-?-?-?-?-?-?- Negative 168 -?-?-?-?-?-?-?-?-?-?-?-?- MH-No VB. Nausea improving. Br US to confirm FHT. PN labs and NIPT today 11/26/24 -?-?-?-?-?-?-?-?-?-?-?-?- 21w 3d 146 lb 3 oz 136/86 Nega tive -?-?-?-?-?-?-?-?-?-?-?-?- Negative 150 -?-?-?-?-?-?-?-?-?-?-?-?- SM- no vb lof go od fm no regular ctx nl anatomy 12/23/24 -?-?-?-?-?-?-?-?-?-?-?-?- 25w 2d 151 lb 8 oz 132/87 Nega tive -?-?-?-?-?-?-?-?-?-?-?-?- Negative 155 25 -?-?-?-?-?-?-?-?-?-?-?-?- KW- no vb/crampi ng. good fm. glucose next visit. 01/11/25 -?-?-?--?-?-?-?-?-?-?-?-?- 28w 0d 156 lb 2 oz 144/96 Trac e -?-?-?-?-?-?-?-?-?-?-?-?- Negative 152 27 -?-?-?-?-?-?-?-?-?-?-?-?- MH-No VB. Good F M. Headache, elevated BP and proteinuria-labs and sent to . 01/17/25 -?-?-?-?-?-?-?-?-?-?-?-?- 28w 6d 154 lb 4 oz 155/94 135/97 139/88 Negative -?-?-?-?-?-?-?-?-?-?-?-?- Negative 145 29 -?-?-?-?-?-?-?-?-?-?-?-?- SM- no vb lof go od fm no regular ctx checking bps at home and 130s over 80s, was admitted last [facility] [place] 01/27/25 -?-?-?-?-?-?-?-?-?-?-?-?- 30w 2d 157 lb 145/85 121/88 -?-?-?-?-?-?-?-?-?-?-?-?- 140 30 -?-?-?-?-?-?-?-?-?-?-?-?- SM- no vb lof go od fm n oregular ct some hip pain. repe tabps WNL. ACOG First Trimester First Trimester: Discussed Results POC Urinalysis 2 Dip (Clinic) Office Urine Glucose Negative Last Edit by Butch Puga on 02/02/25 08:58 Office Urine Protein Negative Last Edit by Butch Puga on 02/02/25 08:58 Coding Level of Care Code OB Routine Diagnoses headache in second trimester O26.892; R51.9 Trimester: second trimester Supervision of high risk in first trimester O09.91 Trimester: first trimester 31 weeks gestation of Z3A.31 Weeks of gestation: 31 weeks Fibromyalgia M79.7 Anemia affecting in third trimester O99.013 Assessment and Plan Assessment and Plan (1) Headache in : Status: Resolved Qualifiers: Trimester: second trimester Qualified Code(s): O26.892 - Other specified related conditions, second trimester; R51.9 - Headache, unspecified Comment: no vision changes. To WP, labs (2) Supervision of high-risk : Status: Acute Qualifiers: Trimester: first trimester Qualified Code(s): O09.91 - Supervision of high risk , unspecified, first trimester Comment: PRR G1, ZACK 04/05/25, boy Onofre : Emeterio (3) : Status: Acute Qualifiers: Weeks of gestation: 31 weeks Qualified Code(s): Z3A.31 - 31 weeks gestation of Comment: NIPT-low risk declined afp and carrier. nl anatomy. (4) Fibromyalgia: Status: Acute (5) Anemia affecting in third trimester: Status: Acute Comment: iron ordered, cbc next visit Orders: Orders POC Urinalysis 2 Dip (Clinic) Today 02/02/25914 <Electronically signed by Catie pierson MD> Date _ Catie Krishnan MD Cosigner Signature: Date (if applicable) CC: ~ [facility] Work Phone: Progress note Author Yudith Montero [facility] Note Date/Time February 16, 2025 0:12am [facility] [address], [address] [place] [address] OFFICE VISIT Date of Service: 02/16/25 MR#: [id number] Acct: [id number] Name: LEONOR HAGER Rep #: [id number] : 2000 Provider: Dr. Rossy Harper DO Age/Sex: 24/F [place] [facility] [place]: Signed Intake Vital Signs 01/17/25 09:28 01/27/25 09:35 02/05/25 12:23 02/16/25 08:40 02/16/25 08:42 Height 5 ft 6 in 5 ft 6 in 5 ft 6 in 5 ft 6 in 5 ft 6 in Weight: 160 lb 6 oz BMI 25.9 BP 129/92 H Intake Visit Reasons: 33wk ob *per Bolt Labeler Required: No Is patient in pain?: No Allergies latex Allergy (Mild, Verified 02/16/25 08:40) Rash Medications ?Medication ?Instructions ?Recorded ?Confirmed ?Type docosahexaenoic acid 200 mg 200 mg PO DAILY supplement 08/13/24 02/16/25 History capsule ( DHA) famotidine 20 mg tablet (Pepcid) 20 mg PO BID #60 tabs 02/16/25 02/16/25 Rx Last Menstrual Period: 06/29/24 Zika: Zika virus screening: Negative : No PFSH PFSH Medical History History of migraine headaches Family History Father Asthma Mother Blood clot in abdominal vein Hypertension Factor V Leiden Grandmother Breast cancer Grandfather Hypertension Myocardial infarction, Onset Age: 42 and at age 61 Grandfather Myocardial infarction Social History adopted: No household members: spouse current occupational status: student 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 current occupational exposures/hazards: No pets and animals: No history of recent travel: Yes ( - June 2024) out of state: Yes out of country: No sexually active: Yes Smoking Status: Never smoker alcohol intake: never substance use type: does not use well-balanced diet: daily or most days caffeine: Yes Type: coffee eating out: 1-3 times/week during the past year weight has: remained stable what type of physical activity do you participate in: walking frequency: 3-4 times per week duration: 15-30 minutes/day melvina/presybeterian: Uatsdin seatbelt use: always do you feel safe at home: Yes additional social history: : Emeterio - [employer]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 OB Visit ZACK Calculator Estimated Delivery Date Method Current WG Current Estimate 04/05/25 LMP (Certain) 33w 1d Other Estimates 04/03/25 Ultrasound #1 33w 3d Expected Delivery Route/Plan Labor Preferences- CB/BF classes: [] labor support person: [] labor intervention preferences: [] pain management options preferred: [] cut cord/dad catch: [] : [] PP control planned: [] discussed possible routes of delivery and associated risks: [] special requests: [] Specific Issue/Plans Covid status: [] Flu vaccine: [] Tdap vaccine: declines Rhogam: na LARC form signed:yes Problem list reviewed and updated with the most current plan of care details and appropriate orders placed. Relevant counseling for the gestational age provided. Continue routine care and follow up unless otherwise noted in visit notes/problem list details Initial Weight: Not Recorded Date -?-?-?-?-?-?-?-?-?-?-?-?- EGA Weight BP Urine Prot -?-?-?-?-?-?-?-?-?-?-?-?- Glucose FHR FuHt Pres Dilation -?-?-?-?-?-?-?-?-?-?-?-?- Effaced St Visit Note 08/27/24 -?-?-?-?-?-?-?-?-?-?-?-?- 8w 3d 130 lb 6 oz 126/75 -?-?-?-?-?-?-?-?-?-?-?-?- 161 -?-?-?-?-?-?-?-?-?-?-?-?- JV- CRL is consi stent with LMP. Desires NIPT. 09/27/24 -?-?-?-?-?-?-?-?-?-?-?-?- 12w 6d 134 lb 2 oz 119/86 Nega tive -?-?-?-?-?-?-?-?-?-?-?-?- Negative 168 -?-?-?-?-?-?-?-?-?-?-?-?- MH-No VB. Nausea improving. Br US to confirm FHT. PN labs and NIPT today 11/26/24 -?-?-?-?-?-?-?-?-?-?-?-?- 21w 3d 146 lb 3 oz 136/86 Nega tive -?-?-?-?-?-?-?-?-?-?-?-?- Negative 150 -?-?-?-?-?-?-?-?-?-?-?-?- SM- no vb lof go od fm no regular ctx nl anatomy 12/23/24 -?-?-?-?-?-?-?-?-?-?-?-?- 25w 2d 151 lb 8 oz 132/87 Nega tive -?-?-?-?-?-?-?-?-?-?-?-?- Negative 155 25 -?-?-?-?-?-?-?-?-?-?-?-?- KW- no vb/crampi ng. good fm. glucose next visit. 01/11/25 -?-?-?-?-?-?-?-?-?-?-?-?- 28w 0d 156 lb 2 oz 144/96 Trac e -?-?-?-?-?-?-?-?-?-?-?-?- Negative 152 27 -?-?-?-?-?-?-?-?-?-?-?-?- MH-No VB. Jose Patterson M. Headache, elevated BP and proteinuria-labs and sent to . 01/17/25 -?-?-?-?-?-?-?-?-?-?-?-?- 28w 6d 154 lb 4 oz 155/94 135/97 139/88 Negative -?-?-?-?-?-?-?-?-?-?-?-?- Negative 145 29 -?-?-?-?-?-?-?-?-?-?-?-?- SM- no vb lof go od fm no regular ctx checking bps at home and 130s over 80s, was admitted [facility] [place] 01/27/25 -?-?-?-?-?-?-?-?-?-?-?-?- 30w 2d 157 lb 145/85 121/88 -?-?-?-?-?-?-?-?-?-?-?-?- 140 30 -?-?-?-?-?-?-?-?-?-?-?-?- SM- no vb lof go od fm n oregular ct some hip pain. repe tabps WNL. 02/16/25 -?-?-?-?-?-?-?-?-?-?-?-?- 33w 1d 160 lb 6 oz 129/92 Nega tive -?-?-?-?-?-?-?-?-?-?-?-?- Negative 140 31 -?-?-?-?-?-?-?-?-?-?-?-?- JV- mild headach es on and off. diastolic elevated today. ordering PIH labs ad growth ultrasound JV- mild headaches on and of f. diastolic elevated today. ordering [facility] labs. growth ultrasound already ordered with [facility] in early early february. ACOG First Trimester First Trimester: Discussed Results POC Urinalysis 2 Dip (Clinic) Office Urine Glucose Negative Last Edit by Nancy Sanders on 02/16/25 08: 52 Office Urine Protein Negative Last Edit by Nancy Sanders on 02/16/25 08: 52 Coding Level of Care Code OB Routine Diagnoses Threatened labor O47.00 Anemia affecting in third trimester O99.013 Supervision of high risk in first trimester O09.91 Trimester: first trimester 33 weeks gestation of Z3A.33 Weeks of gestation: 33 weeks Fibromyalgia M79.7 Assessment and Plan Assessment and Plan (1) Threatened labor: Status: Acute (2) Anemia affecting in third trimester: Status: Acute Comment: iron ordered, cbc next visit (3) Supervision of high-risk : Status: Acute Qualifiers: Trimester: first trimester Qualified Code(s): O09.91 - Supervision of high risk , unspecified, first trimester Comment: PRR G1, ZACK 04/05/25, boy Onofre : Emeterio (4) : Status: Acute Qualifiers: Weeks of gestation: 33 weeks Qualified Code(s): Z3A.33 - 33 weeks gestation of Comment: NIPT-low risk declined afp and carrier. nl anatomy. (5) Fibromyalgia: Status: Acute Orders: Orders POC Urinalysis 2 Dip (Clinic) Today CBC W/Diff, Automated Today O99.013 - Anemia complicating , third trimester, R03.0 - Elevated blood-pressure reading, without diagnosis of hypertension Comprehensive Metabolic Profil Today R03.0 - Elevated blood-pressure reading, without diagnosis of hypertension Protein+Creatinine Ratio,Urine Today R03.0 - Elevated blood-pressure reading, without diagnosis of hypertension Medications: New famotidine (Pepcid) 20 mg PO BID 60 tabs 5RF 02/16/25 0912 <Electronically signed by Yudith Denton DO> Date _ Yudith Harper DO Cosigner Signature: Date (if applicable) CC: ~ [facility] Work Phone: Rewliz for referral (narrative)No reason for referral information availableKaiser [facility] Hospital Work Phone: Reaykn for visit Narrative* Auth/Cert (Routine) Specialty Diagnoses / Procedures Referred By Contac t Referred To Contact Diagnoses Threatened labor, antepartum Procedures [place] [address] Phone: tel: fax: [facility] [address] [place] [address] Phone: tel: Referral ID Status Reason Start Date Expiration Date Visits Re quested Visits Authorized [id number] 1 1 [facility] Health Summary Purpose Family History No Family History Records Found Relationship Condition Age at Onset Recorded Date/T phu father Asthma Unknown mother Blood clot in abdominal vein Unknown Hypertension Unknown Factor V Leiden mutation Unknown grandmother Malignant neoplasm of breast Unknown grandfather Hypertension Unknown Myocardial infarction 42 grandfather Myocardial infarction Unknown Advance Directives No Advanced Directives Records Found Date Activated Date Inactivated Comments 01/11/2025 9:37 PM 01/13/2025 8:53 PM Chief Complaint and Reason for Visit Chief Complaint Admit Date ER fu for elevated BP per KW August 06, 2024 10:27am PNOB nurse visit August 13, 2024 8:2 2am New OB, LMP 3/4, ZACK 12/August 27, 2024 10:23am 13wk ob September 27, 2024 2:01p m Reason for Visit Admit Date Elevated blood pressure read ing in office without diagnosis of hypertension August 06, 2024 10:27am Generalized headaches August 06, 2024 1 0:27am Elevated blood pressure read ing in office without diagnosis of hypertension August 27, 2024 10:23am Fibromyalgia August 27, 2024 10:23a m Generalized headaches August 27, 2024 10:2 3am August 27, 2024 10:23a m Supervision of high-risk August 272024 10:23am Tachycardia August 27, 2024 10:23a m Factor V Leiden August 27, 2024 10:23a m Elevated blood pressure read ing in office without diagnosis of hypertension September 27, 2024 2:01pm Fibromyalgia September 27, 2024 2:01p m Generalized headaches September 27, 2024 2:0 1pm September 27, 2024 2:01p m Supervision of high-risk September 27, 2024 2:01pm Tachycardia September 27, 2024 2:01p m Chief Complaint Admit Date ER fu for elevated BP per KW August 06, 2024 10:27am PNOB nurse visit August 13, 2024 8:2 2am New OB, LMP 3/4, ZACK 12/9 August 27, 2024 10:23am 13wk ob September 27, 2024 2:01p m 21wk ob November 26, 2024 9:3 7am Reason for Visit Admit Date Elevated blood pressure read ing in office without diagnosis of hypertension August 06, 2024 10:27am Generalized headaches August 06, 2024 1 0:27am Fibromyalgia August 27, 2024 10:23a m August 27, 2024 10:23a m Supervision of high-risk August 272024 10:23am Elevated blood pressure read ing in office without diagnosis of hypertension August 27, 2024 10:23am Generalized headaches August 27, 2024 10:2 3am Tachycardia August 27, 2024 10:23a m Factor V Leiden August 27, 2024 10:23a m Fibromyalgia September 27, 2024 2:01p m September 27, 2024 2:01p m Supervision of high-risk September 27, 2024 2:01pm Elevated blood pressure read ing in office without diagnosis of hypertension September 27, 2024 2:01pm Generalized headaches September 27, 2024 2:0 1pm Tachycardia September 27, 2024 2:01p m Fibromyalgia November 26, 2024 9:3 7am November 26, 2024 9:3 7am Supervision of high-risk Augus t 2024 9:37am Elevated blood pressure read ing in office without diagnosis of hypertension November 26, 2024 9:37am Generalized headaches November 26, 2024 9 :37am Tachycardia November 26, 2024 9:3 7am Chief Complaint Admit Date New OB, LMP 3/4, ZACK 04/05August 27, 2024 10:23am 13wk ob September 27, 2024 2:01p m 21wk ob November 26, 2024 9:3 7am R/O PRE E December 16, 2024 11 :50am Reason for Visit Admit Date Fibromyalgia August 27, 2024 10:23a m August 27, 2024 10:23a m Supervision of high-risk August 272024 10:23am Elevated blood pressure read ing in office without diagnosis of hypertension August 27, 2024 10:23am Generalized headaches August 27, 2024 10:2 3am Tachycardia August 27, 2024 10:23a m Factor V Leiden August 27, 2024 10:23a m Fibromyalgia September 27, 2024 2:01p m September 27, 2024 2:01p m Supervision of high-risk September 27, 2024 2:01pm Elevated blood pressure read ing in office without diagnosis of hypertension September 27, 2024 2:01pm Generalized headaches September 27, 2024 2:0 1pm Tachycardia September 27, 2024 2:01p m Fibromyalgia November 26, 2024 9:3 7am November 26, 2024 9:3 7am Supervision of high-risk Augus t 2024 9:37am Chief Complaint Admit Date New OB, LMP 3/4, ZACK 04/05August 27, 2024 10:23am 13wk ob September 27, 2024 2:01p m 21wk ob November 26, 2024 9:3 7am R/O PRE E December 16, 2024 11 :50am R/O PRE E December 16, 2024 1: 44pm 25wk ob December 23, 2024 9: 22am Reason for Visit Admit Date Fibromyalgia August 27, 2024 10:23a m August 27, 2024 10:23a m Supervision of high-risk August 272024 10:23am Elevated blood pressure read ing in office without diagnosis of hypertension August 27, 2024 10:23am Generalized headaches August 27, 2024 10:2 3am Tachycardia August 27, 2024 10:23a m Factor V Leiden August 27, 2024 10:23a m Fibromyalgia September 27, 2024 2:01p m September 27, 2024 2:01p m Supervision of high-risk September 27, 2024 2:01pm Elevated blood pressure read ing in office without diagnosis of hypertension September 27, 2024 2:01pm Generalized headaches September 27, 2024 2:0 1pm Tachycardia September 27, 2024 2:01p m Fibromyalgia November 26, 2024 9:3 7am November 26, 2024 9:3 7am Supervision of high-risk Augus 2024 9:37am Fibromyalgia December 23, 2024 9: 22am December 23, 2024 9: 22am Supervision of high-risk Augus 2024 9:22am Chief Complaint Admit Date 13wk ob September 27, 2024 2:01p m 21wk ob November 26, 2024 9:3 7am R/O PRE E December 16, 2024 11 :50am R/O PRE E December 16, 2024 1: 44pm 25wk ob December 23, 2024 9: 22am 28wk ob/glucose January 11, 2025 9:22am Reason for Visit Admit Date Fibromyalgia September 27, 2024 2:01p m September 27, 2024 2:01p m Supervision of high-risk September 27, 2024 2:01pm Elevated blood pressure read ing in office without diagnosis of hypertension September 27, 2024 2:01pm Generalized headaches September 27, 2024 2:0 1pm Tachycardia September 27, 2024 2:01p m Fibromyalgia November 26, 2024 9:3 7am November 26, 2024 9:3 7am Supervision of high-risk Augus 2024 9:37am Fibromyalgia December 23, 2024 9: 22am December 23, 2024 9: 22am Supervision of high-risk Augus 2024 9:22am Fibromyalgia January 11, 2025 9:22am January 11, 2025 9:22am Supervision of high-risk [facility] 2024 9:22am Chief Complaint Admit Date 13wk ob September 27, 2024 2:01p m 21wk ob November 26, 2024 9:3 7am R/O PRE E December 16, 2024 11 :50am R/O PRE E December 16, 2024 1: 44pm 25wk ob December 23, 2024 9: 22am 28wk ob/glucose January 11, 2025 9:22am R/O PRE E January 11, 2025 9:30am R/O PRE E January 11, 2025 4:23pm Reason for Visit Admit Date Fibromyalgia September 27, 2024 2:01p m September 27, 2024 2:01p m Supervision of high-risk September 27, 2024 2:01pm Elevated blood pressure read ing in office without diagnosis of hypertension September 27, 2024 2:01pm Generalized headaches September 27, 2024 2:0 1pm Tachycardia September 27, 2024 2:01p m Fibromyalgia November 26, 2024 9:3 7am November 26, 2024 9:3 7am Supervision of high-risk Augus 2024 9:37am Fibromyalgia December 23, 2024 9: 22am December 23, 2024 9: 22am Supervision of high-risk Augus t 2024 9:22am Elevated blood pressure affe cting in second trimester, antepartum January 11, 2025 9:22am Fibromyalgia January 11, 2025 9:22am Headache in January 11 9:22am January 11, 2025 9:22am [facility] 2024 9:22am Elevated blood pressure affe cting in second trimester, antepartum January 11, 2025 9:30am Epigastric pain during , antepa rtum January 11, 2025 9:30am Fibromyalgia January 11, 2025 9:30am Headache in January 11 9:30am January 11, 2025 9:30am Supervision of high-risk [facility] 2024 9:30am Chief Complaint Admit Date 13wk ob September 27, 2024 2:01p m 21wk ob November 26, 2024 9:3 7am R/O PRE E December 16, 2024 11 :50am R/O PRE E December 16, 2024 1: 44pm 25wk ob December 23, 2024 9: 22am 28wk ob/glucose January 11, 2025 9:22am R/O PRE E January 11, 2025 9:30am R/O PRE E January 11, 2025 4:23pm FU after [facility] January 17, 2025 9:22am R/O PRE E January 21, 2025 2:05pm R/O PRE E January 21, 2025 3:26pm Reason for Visit Admit Date Fibromyalgia September 27, 2024 2:01p m September 27, 2024 2:01p m Supervision of high-risk September 27, 2024 2:01pm Elevated blood pressure read ing in office without diagnosis of hypertension September 27, 2024 2:01pm Generalized headaches September 27, 2024 2:0 1pm Tachycardia September 27, 2024 2:01p m Fibromyalgia November 26, 2024 9:3 7am November 26, 2024 9:3 7am Supervision of high-risk Augus 2024 9:37am Fibromyalgia December 23, 2024 9: 22am December 23, 2024 9: 22am Supervision of high-risk Augus t 2024 9:22am Elevated blood pressure affe cting in second trimester, antepartum January 11, 2025 9:22am Fibromyalgia January 11, 2025 9:22am Headache in January 11 9:22am January 11, 2025 9:22am [facility] high-risk [facility] 2024 9:22am Elevated blood pressure affe cting in second trimester, antepartum January 11, 2025 9:30am Epigastric pain during , antepa rtum January 11, 2025 9:30am Fibromyalgia January 11, 2025 9:30am Headache in January 11 9:30am January 11, 2025 9:30am Supervision of high-risk [facility] 2024 9:30am Elevated blood pressure affe cting in second trimester, antepartum January 17, 2025 9:22am Epigastric pain during , antepa rtum January 17, 2025 9:22am Fibromyalgia January 17, 2025 9:22am Headache in January 17 9:22am January 17, 2025 9:22am Supervision of high-risk [facility] 2024 9:22am Elevated blood pressure affe cting in second trimester, antepartum January 21, 2025 2:05pm Epigastric pain during , antepa rtum January 21, 2025 2:05pm Fibromyalgia January 21, 2025 2:05pm Headache in January 21 2:05pm January 21, 2025 2:05pm [facility] 2024 2:05pm Chief Complaint Admit Date 21wk ob November 26, 2024 9:3 7am R/O PRE E December 16, 2024 11 :50am R/O PRE E December 16, 2024 1: 44pm 25wk ob December 23, 2024 9: 22am 28wk ob/glucose January 11, 2025 9:22am R/O PRE E January 11, 2025 9:30am R/O PRE E January 11, 2025 4:23pm FU after [facility] January 17, 2025 9:22am R/O PRE E January 21, 2025 2:05pm R/O PRE E January 21, 2025 3:26pm Reason for Visit Admit Date Fibromyalgia November 26, 2024 9:3 7am November 26, 2024 9:3 7am Supervision of high-risk Augus t 2024 9:37am Fibromyalgia December 23, 2024 9: 22am December 23, 2024 9: 22am Supervision of high-risk Augus t 2024 9:22am Elevated blood pressure affe cting in second trimester, antepartum January 11, 2025 9:22am Fibromyalgia January 11, 2025 9:22am Headache in January 11 9:22am January 11, 2025 9:22am [facility] of [facility]-risk [facility] 2024 9:22am Elevated blood pressure affe cting in second trimester, antepartum January 11, 2025 9:30am Epigastric pain during , antepa rtum January 11, 2025 9:30am Fibromyalgia January 11, 2025 9:30am Headache in January 11 9:30am January 11, 2025 9:30am Supervision of high-risk [facility] 2024 9:30am Elevated blood pressure affe cting in second trimester, antepartum January 17, 2025 9:22am Epigastric pain during , antepa rtum January 17, 2025 9:22am Fibromyalgia January 17, 2025 9:22am Headache in January 17 9:22am January 17, 2025 9:22am Supervision of high-risk [facility] 2024 9:22am Elevated blood pressure affe cting in second trimester, antepartum January 21, 2025 2:05pm Epigastric pain during , antepa rtum January 21, 2025 2:05pm Fibromyalgia January 21, 2025 2:05pm Headache in January 21 2:05pm January 21, 2025 2:05pm Supervision of high-risk [facility] 2024 2:05pm Chief Complaint Admit Date 21wk ob November 26, 2024 9:3 7am R/O PRE E December 16, 2024 11 :50am R/O PRE E December 16, 2024 1: 44pm 25wk ob December 23, 2024 9: 22am 28wk ob/glucose January 11, 2025 9:22am R/O PRE E January 11, 2025 9:30am R/O PRE E January 11, 2025 4:23pm FU after [facility] January 17, 2025 9:22am R/O PRE E January 21, 2025 2:05pm R/O PRE E January 21, 2025 3:26pm 30wk ob January 27, 2025 9: 19am Reason for Visit Admit Date Fibromyalgia November 26, 2024 9:3 7am November 26, 2024 9:3 7am Supervision of high-risk Aug t 2024 9:37am Fibromyalgia December 23, 2024 9: 22am December 23, 2024 9: 22am Supervision of high-risk Augus t 2024 9:22am Elevated blood pressure affe cting in second trimester, antepartum January 11, 2025 9:22am Fibromyalgia January 11, 2025 9:22am Headache in January 11 9:22am January 11, 2025 9:22am Supervision of high-risk [facility] 2024 9:22am Elevated blood pressure affe cting in second trimester, antepartum January 11, 2025 9:30am Epigastric pain during , antepa rtum January 11, 2025 9:30am Fibromyalgia January 11, 2025 9:30am Headache in January 11 9:30am January 11, 2025 9:30am Supervision of high-risk [facility] 2024 9:30am Elevated blood pressure affe cting in second trimester, antepartum January 17, 2025 9:22am Epigastric pain during , antepa rtum January 17, 2025 9:22am Fibromyalgia January 17, 2025 9:22am Headache in January 17 9:22am January 17, 2025 9:22am Supervision of high-risk [facility] 2024 9:22am Elevated blood pressure affe cting in second trimester, antepartum January 21, 2025 2:05pm Epigastric pain during , antepa rtum January 21, 2025 2:05pm Fibromyalgia January 21, 2025 2:05pm Headache in January 21 2:05pm January 21, 2025 2:05pm Supervision of high-risk [facility] 2024 2:05pm Elevated blood pressure affe cting in second trimester, antepartum January 27, 2025 9:19am Epigastric pain during , antepa rtum January 27, 2025 9:19am Fibromyalgia January 27, 2025 9: 19am Headache in January 27, 2025 9:19am January 27, 2025 9: 19am Supervision of high-risk Octob er 2024 9:19am Chief Complaint Admit Date 21wk ob November 26, 2024 9:3 7am R/O PRE E December 16, 2024 11 :50am R/O PRE E December 16, 2024 1: 44pm 25wk ob December 23, 2024 9: 22am 28wk ob/glucose January 11, 2025 9:22am R/O PRE E January 11, 2025 9:30am R/O PRE E January 11, 2025 4:23pm FU after [facility] January 17, 2025 9:22am R/O PRE E January 21, 2025 2:05pm R/O PRE E January 21, 2025 3:26pm 30wk ob January 27, 2025 9: 19am 31wk ob *per SM February 02, 2025 8: 48am Reason for Visit Admit Date Fibromyalgia November 26, 2024 9:3 7am November 26, 2024 9:3 7am Supervision of high-risk Augus t 2024 9:37am Fibromyalgia December 23, 2024 9: 22am December 23, 2024 9: 22am Supervision of high-risk Augus t 2024 9:22am Fibromyalgia January 11, 2025 9:22am January 11, 2025 9:22am [facility] 2024 9:22am Elevated blood pressure affe cting in second trimester, antepartum January 11, 2025 9:22am Headache in January 11 9:22am Fibromyalgia January 11, 2025 9:30am January 11, 2025 9:30am Supervision of high-risk [facility] 2024 9:30am Elevated blood pressure affe cting in second trimester, antepartum January 11, 2025 9:30am Epigastric pain during , antepa rtum January 11, 2025 9:30am Headache in January 11 9:30am Fibromyalgia January 17, 2025 9:22am January 17, 2025 9:22am Supervision of high-risk [facility] 2024 9:22am Elevated blood pressure affe cting in second trimester, antepartum January 17, 2025 9:22am Epigastric pain during , antepa rtum January 17, 2025 9:22am Headache in January 17 9:22am Fibromyalgia January 21, 2025 2:05pm January 21, 2025 2:05pm Supervision of high-risk Septe mber 2024 2:05pm Elevated blood pressure affe cting in second trimester, antepartum January 21, 2025 2:05pm Epigastric pain during , antepa rtum January 21, 2025 2:05pm Headache in January 21 2:05pm Fibromyalgia January 27, 2025 9: 19am January 27, 2025 9: 19am Supervision of high-risk Octob er 2024 9:19am Elevated blood pressure affe cting in second trimester, antepartum January 27, 2025 9:19am Epigastric pain during , antepa rtum January 27, 2025 9:19am Headache in January 27, 2025 9:19am Anemia affecting in third trim mala February 02, 2025 8:48am Fibromyalgia February 02, 2025 8: 48am February 02, 2025 8: 48am Supervision of high-risk Octob er 2024 8:48am Headache in February 02, 2025 8:48am Chief Complaint Admit Date 21wk ob November 26, 2024 9:3 7am R/O PRE E December 16, 2024 11 :50am R/O PRE E December 16, 2024 1: 44pm 25wk ob December 23, 2024 9: 22am 28wk ob/glucose January 11, 2025 9:22am R/O PRE E January 11, 2025 9:30am R/O PRE E January 11, 2025 4:23pm FU after [facility] January 17, 2025 9:22am R/O PRE E January 21, 2025 2:05pm R/O PRE E January 21, 2025 3:26pm 30wk ob January 27, 2025 9: 19am 31wk ob *per SM February 02, 2025 8: 48am R/O LABOR February 05, 2025 1 2:10pm R/O LABOR February 05, 2025 1 :57pm 33wk ob *per SM February 16, 2025 8 :34am Reason for Visit Admit Date Fibromyalgia November 26, 2024 9:3 7am November 26, 2024 9:3 7am Supervision of high-risk Augus t 2024 9:37am Fibromyalgia December 23, 2024 9: 22am December 23, 2024 9: 22am Supervision of high-risk Augus t 2024 9:22am Fibromyalgia January 11, 2025 9:22am January 11, 2025 9:22am Supervision of high-risk [facility] 2024 9:22am Elevated blood pressure affe cting in second trimester, antepartum January 11, 2025 9:22am Headache in January 11 9:22am Fibromyalgia January 11, 2025 9:30am January 11, 2025 9:30am Supervision of high-risk [facility] 2024 9:30am Elevated blood pressure affe cting in second trimester, antepartum January 11, 2025 9:30am Epigastric pain during , antepa rtum January 11, 2025 9:30am Headache in January 11 9:30am Fibromyalgia January 17, 2025 9:22am January 17, 2025 9:22am Supervision of high-risk [facility] 2024 9:22am Elevated blood pressure affe cting in second trimester, antepartum January 17, 2025 9:22am Epigastric pain during , antepa rtum January 17, 2025 9:22am Headache in January 17 9:22am Fibromyalgia January 21, 2025 2:05pm January 21, 2025 2:05pm Supervision of high-risk [facility] 2024 2:05pm Elevated blood pressure affe cting in second trimester, antepartum January 21, 2025 2:05pm Epigastric pain during , antepa rtum January 21, 2025 2:05pm Headache in January 21 2:05pm Fibromyalgia January 27, 2025 9: 19am January 27, 2025 9: 19am Supervision of high-risk Octob er 2024 9:19am Elevated blood pressure affe cting in second trimester, antepartum January 27, 2025 9:19am Epigastric pain during , antepa rtum January 27, 2025 9:19am Headache in January 27, 2025 9:19am Anemia affecting in third trim mala February 02, 2025 8:48am Fibromyalgia February 02, 2025 8: 48am February 02, 2025 8: 48am Supervision of high-risk Octob er 2024 8:48am Headache in February 02, 2025 8:48am Threatened labor February 05, 025 12:10pm Anemia affecting in third trim mala February 16, 2025 8:34am Fibromyalgia February 16, 2025 8 :34am February 16, 2025 8 :34am Supervision of high-risk Octob er 2024 8:34am Threatened labor February 16, 025 8:34am Chief Complaint Admit Date wk ob November 26, 2024 9:3 7am R/O PRE E December 16, 2024 11 :50am R/O PRE E December 16, 2024 1: 44pm 25wk ob December 23, 2024 9: 22am 28wk ob/glucose January 11, 2025 9:22am R/O PRE E January 11, 2025 9:30am R/O PRE E January 11, 2025 4:23pm FU after [facility] January 17, 2025 9:22am R/O PRE E January 21, 2025 2:05pm R/O PRE E January 21, 2025 3:26pm 30wk ob January 27, 2025 9: 19am 31wk ob *per SM February 02, 2025 8: 48am R/O LABOR February 05, 2025 1 2:10pm R/O LABOR February 05, 2025 1 :57pm 33wk ob *per SM February 16, 2025 8 :34am 34wk2d ob February 24, 2025 1 0:56am Reason for Visit Admit Date Fibromyalgia November 26, 2024 9:3 7am November 26, 2024 9:3 7am Supervision of high-risk Augus t 2024 9:37am Fibromyalgia December 23, 2024 9: 22am December 23, 2024 9: 22am Supervision of high-risk Augus t 2024 9:22am Fibromyalgia January 11, 2025 9:22am January 11, 2025 9:22am Supervision of high-risk [facility] 2024 9:22am Elevated blood pressure affe cting in second trimester, antepartum January 11, 2025 9:22am Headache in January 11 9:22am Fibromyalgia January 11, 2025 9:30am January 11, 2025 9:30am Supervision of high-risk [facility] 2024 9:30am Elevated blood pressure affe cting in second trimester, antepartum January 11, 2025 9:30am Epigastric pain during , antepa rtum January 11, 2025 9:30am Headache in January 11 9:30am Fibromyalgia January 17, 2025 9:22am January 17, 2025 9:22am [facility] 2024 9:22am Elevated blood pressure affe cting in second trimester, antepartum January 17, 2025 9:22am Epigastric pain during , antepa rtum January 17, 2025 9:22am Headache in January 17 9:22am Fibromyalgia January 21, 2025 2:05pm January 21, 2025 2:05pm Supervision of high-risk [facility] 2024 2:05pm Elevated blood pressure affe cting in second trimester, antepartum January 21, 2025 2:05pm Epigastric pain during , antepa rtum January 21, 2025 2:05pm Headache in January 21 2:05pm Fibromyalgia January 27, 2025 9: 19am January 27, 2025 9: 19am Supervision of high-risk Octob 2024 9:19am Elevated blood pressure affe cting in second trimester, antepartum January 27, 2025 9:19am Epigastric pain during , antepa rtum January 27, 2025 9:19am Headache in January 27, 2025 9:19am Anemia affecting in third trim mala February 02, 2025 8:48am Fibromyalgia February 02, 2025 8: 48am February 02, 2025 8: 48am Supervision of high-risk Octob er 2024 8:48am Headache in February 02, 2025 8:48am Threatened labor February 05, 025 12:10pm Anemia affecting in third trim mala February 16, 2025 8:34am Fibromyalgia February 16, 2025 8 :34am February 16, 2025 8 :34am Supervision of high-risk Octob er 2024 8:34am Threatened labor February 16, 8:34am Anemia affecting in third trim mala February 24, 2025 10:56am Fibromyalgia February 24, 2025 1 0:56am February 24, 2025 1 0:56am Supervision of high-risk Octob er 2024 10:56am Threatened labor February 24, 025 10:56am Additional Source Comments INFORMATION SOURCE (unrecogn ized section and content) DATE CREATED AUTHOR 09/11/2022 [facility] DATE CREATED AUTHOR AUTHOR'S ORGANIZ ATION 07/14/2024 [facility] DATE CREATED AUTHOR AUTHOR'S ORGANIZ ATION 08/03/2024 [facility] DATE CREATED AUTHOR AUTHOR'S ORGANIZ ATION 01/17/2025 [facility] DATE CREATED AUTHOR AUTHOR'S ORGANIZ ATION 02/28/2025 [facility] DATE CREATED AUTHOR AUTHOR'S ORGANIZ ATION 03/05/2025 [facility] Source Comments (unrecognize d section and content) In the event this informatio n is protected by the Federal Confidentiality of Alcohol and Drug Abuse Patient Records regulations: The Federal rules restrict any use of the information to criminally investigate or prosecute any alcohol or drug abuse patient.[facility] the event this information is protected by the Federal Confidentiality of Alcohol and Drug Abuse Patient Records regulations: The Federal rules restrict any use of the information to criminally investigate or prosecute any alcohol or drug abuse patient.[facility] the event this information is protected by the Federal Confidentiality of Alcohol and Drug Abuse Patient Records regulations: The Federal rules restrict any use of the information to criminally investigate or prosecute any alcohol or drug abuse patient.[facility] the event this information is protected by the Federal Confidentiality of Alcohol and Drug Abuse Patient Records regulations: The Federal rules restrict any use of the information to criminally investigate or prosecute any alcohol or drug abuse patient.[facility] Reason for Visit (unrecogniz ed section and content) Reason Comments Fever Sinus congestion, ch ills, bodyaches x2 days Reason Comments Results Reason Comments Cough Cough, chest congest ion and sinus pressure off and on since week november Reason Comments Sore Throat bodyaches, chills an d fever x 2 days Care Teams (unrecognized sec tion and content) Team Status: Inactive Member Role Status Dates Mally Maldonado CNM Attending Provider Active S tart: August 06, 2024 End: August 06, 2024 Team Status: Inactive Member Role Status Dates Mally Maldonado CNM Attending Provider Active S tart: August 13, 2024 End: August 13, 2024 Team Status: Inactive Member Role Status Dates Dr. Yudith Harper DO Attending Provider Activ e Start: August 27, 2024 End: August 27, 2024 Team Status: Inactive Member Role Status Dates Dr. Yudith Harper DO Attending Provider Activ e Start: August 27, 2024 End: August 27, 2024 Dr. Yudith Harper DO Referring Provider Activ e Start: August 27, 2024 End: August 27, 2024 Team Status: Inactive Member Role Status Dates Butch Falcon SUPERVISOR PRE WAVE, SUPERVISOR PRE WAVE-C Attending Provider Active Start: September 27, 2024 End: September 27, 2024 Team Status: Inactive Member Role Status Dates Butch Falcon SUPERVISOR PRE WAVE, SUPERVISOR PRE WAVE-C Attending Provider Active Start: September 28, 2024 End: September 28, 2024 Team Status: Inactive Member Role/Relationship Status Dates Mally Maldonado CNM Attending Provider Active S tart: August 06, 2024 End: August 06, 2024 Team Status: Inactive Member Role/Relationship Status Dates Mally Maldonado CNM Attending Provider Active S tart: August 13, 2024 End: August 13, 2024 Team Status: Inactive Member Role/Relationship Status Dates Dr. Yudith Harper DO Attending Provider Activ e Start: August 27, 2024 End: August 27, 2024 Team Status: Inactive Member Role/Relationship Status Dates Dr. Yudith Harper DO Attending Provider Activ e Start: August 27, 2024 End: August 27, 2024 Dr. Yudith Harper DO Referring Provider Activ e Start: August 27, 2024 End: August 27, 2024 Team Status: Inactive Member Role/Relationship Status Dates Butch Faclon SUPERVISOR PRE WAVE, SUPERVISOR PRE WAVE-C Attending Provider Active Start: September 27, 2024 End: September 27, 2024 Team Status: Inactive Member Role/Relationship Status Dates Butch Falcon SUPERVISOR PRE WAVE, SUPERVISOR PRE WAVE-C Attending Provider Active Start: September 28, 2024 End: September 28, 2024 Team Status: Inactive Member Role/Relationship Status Dates Dr. Catie Krishnan MD Attending Provider Active Start: November 26, 2024 End: November 26, 2024 Team Status: Active Member Role/Relationship Status Dates No Primary Care Physician Primary Care Provider Active Team Status: Inactive Member Role/Relationship Status Dates Dr. Yudith Harper DO Attending Provider Activ e Start: August 27, 2024 End: August 27, 2024 Team Status: Inactive Member Role/Relationship Status Dates Dr. Yudith Harper DO Attending Provider Activ e Start: August 27, 2024 End: August 27, 2024 Dr. Yudith Harper DO Referring Provider Activ e Start: August 27, 2024 End: August 27, 2024 Team Status: Inactive Member Role/Relationship Status Dates Butch Falcon SUPERVISOR PRE WAVE, SUPERVISOR PRE WAVE-C Attending Provider Active Start: September 27, 2024 End: September 27, 2024 Team Status: Inactive Member Role/Relationship Status Dates Butch Falcon SUPERVISOR PRE WAVE, SUPERVISOR PRE WAVE-C Attending Provider Active Start: September 28, 2024 End: September 28, 2024 Team Status: Inactive Member Role/Relationship Status Dates Dr. Catie Krishnan MD Attending Provider Active Start: November 26, 2024 End: November 26, 2024 Team Status: Inactive Member Role/Relationship Status Dates No Primary Care Physician Primary Care Provider Active Start: December 16, 2024 End: December 16, 2024 Dr. Catie Krishnan MD Attending Provider Active Start: December 16, 2024 End: December 16, 2024 Dr. Catie Krishnan MD Referring Provider Active Start: December 16, 2024 End: December 16, 2024 Team Status: Active Member Role/Relationship Status Dates No Primary Care Physician Primary Care Provider Active Start: December 16, 2024 Dr. Catie Krishnan MD Attending Provider Active Start: December 16, 2024 Dr. Catie Krishnan MD Referring Provider Active Start: December 16, 2024 Dr. Catie Krishnan MD Other Provider Active Start: December 16, 2024 Team Status: Inactive Member Role/Relationship Status Dates Mally Maldonado CNM Attending Provider Active S tart: December 23, 2024 End: December 23, 2024 No Primary Care Physician Primary Care Provider Active Start: December 23, 2024 End: December 23, 2024 No Primary Care Physician Referring Provider Active Start: December 23, 2024 End: December 23, 2024 Team Status: Inactive Member Role/Relationship Status Dates Butch Falcon SUPERVISOR PRE WAVE, SUPERVISOR PRE WAVE-C Attending Provider Active Start: September 27, 2024 End: September 27, 2024 Team Status: Inactive Member Role/Relationship Status Dates Butch Falcon SUPERVISOR PRE WAVE, SUPERVISOR PRE WAVE-C Attending Provider Active Start: September 28, 2024 End: September 28, 2024 Team Status: Inactive Member Role/Relationship Status Dates Dr. Catie Krishnan MD Attending Provider Active Start: November 26, 2024 End: November 26, 2024 Team Status: Inactive Member Role/Relationship Status Dates No Primary Care Physician Primary Care Provider Active Start: December 16, 2024 End: December 16, 2024 Dr. Catie Krishnan MD Attending Provider Active Start: December 16, 2024 End: December 16, 2024 Dr. Catie Krishnan MD Referring Provider Active Start: December 16, 2024 End: December 16, 2024 Team Status: Active Member Role/Relationship Status Dates No Primary Care Physician Primary Care Provider Active Start: December 16, 2024 Dr. Catie Krishnan MD Attending Provider Active Start: December 16, 2024 Dr. Catie Krishnan MD Referring Provider Active Start: December 16, 2024 Dr. Catie Krishnan MD Other Provider Active Start: December 16, 2024 Team Status: Inactive Member Role/Relationship Status Dates Mally Maldonado CNM Attending Provider Active S tart: December 23, 2024 End: December 23, 2024 No Primary Care Physician Primary Care Provider Active Start: December 23, 2024 End: December 23, 2024 No Primary Care Physician Referring Provider Active Start: December 23, 2024 End: December 23, 2024 Team Status: Inactive Member Role/Relationship Status Dates Butch Falcon SUPERVISOR PRE WAVE, SUPERVISOR PRE WAVE-C Attending Provider Active Start: January 11, 2025 End: January 11, 2025 No Primary Care Physician Primary Care Provider Active Start: January 11, 2025 End: January 11, 2025 No Primary Care Physician Referring Provider Active Start: January 11, 2025 End: January 11, 2025 Team Status: Active Member Role/Relationship Status Dates No Primary Care Physician Primary Care Provider Active Start: January 11, 2025 Butch Falcon SUPERVISOR PRE WAVE, SUPERVISOR PRE WAVE-C Attending Provider Active Start: January 11, 2025 Butch Garays SUPERVISOR PRE WAVE, SUPERVISOR PRE WAVE-C Referring Provider Active Start: January 11, 2025 Team Status: Inactive Member Role/Relationship Status Dates No Primary Care Physician Primary Care Provider Active Start: January 11, 2025 End: January 11, 2025 Butch Martineztings SUPERVISOR PRE WAVE, SUPERVISOR PRE WAVE-C Referring Provider Active Start: January 11, 2025 End: January 11, 2025 Mally Maldonado CNM Attending Provider Active S tart: January 11, 2025 End: January 11, 2025 Team Status: Active Member Role/Relationship Status Dates No Primary Care Physician Primary Care Provider Active Start: January 11, 2025 Butch Martineztings SUPERVISOR PRE WAVE, SUPERVISOR PRE WAVE-C Referring Provider Active Start: January 11, 2025 Mally Maldonado CNM Other Provider Active Start : January 11, 2025 Dr. Yudith Harper DO Attending Provider Active Start: December Team Status: Active Member Role/Relationship Status Dates No Primary Care Physician Primary care physician Activ e Team Status: Inactive Member Role/Relationship Status Dates Butch Martineztings SUPERVISOR PRE WAVE, SUPERVISOR PRE WAVE-C Attending physician Active Start: September 27, 2024 End: September 27, 2024 Team Status: Inactive Member Role/Relationship Status Dates Butch Ezekiel SUPERVISOR PRE WAVE, SUPERVISOR PRE WAVE-C Attending physician Active Start: September 28, 2024 End: September 28, 2024 Team Status: Inactive Member Role/Relationship Status Dates Dr. Catie Krishnan MD Attending physician Active Start: November 26, 2024 End: November 26, 2024 Team Status: Inactive Member Role/Relationship Status Dates No Primary Care Physician Primary care physician Activ e Start: December 16, 2024 End: December 16, 2024 Dr. Catie Krishnan MD Attending physician Active Start: December 16, 2024 End: December 16, 2024 Dr. Catie Krishnan MD Referring Provider Active Start: December 16, 2024 End: December 16, 2024 Team Status: Active Member Role/Relationship Status Dates No Primary Care Physician Primary care physician Activ e Start: December 16, 2024 Dr. Catie Krishnan MD Attending physician Active Start: December 16, 2024 Dr. Catie Krishnan MD Referring Provider Active Start: December 16, 2024 Dr. Catie Krishnan MD Nurse Practitioner Active Start: December 16, 2024 Team Status: Inactive Member Role/Relationship Status Dates Mally Maldonado CNM Attending physician Active Start: December 23, 2024 End: December 23, 2024 No Primary Care Physician Primary care physician Activ e Start: December 23, 2024 End: December 23, 2024 No Primary Care Physician Referring Provider Active Start: December 23, 2024 End: December 23, 2024 Team Status: Inactive Member Role/Relationship Status Dates Butch Falcon SUPERVISOR PRE WAVE, SUPERVISOR PRE WAVE-C Attending physician Active Start: January 11, 2025 End: January 11, 2025 No Primary Care Physician Primary care physician Activ e Start: January 11, 2025 End: January 11, 2025 No Primary Care Physician Referring Provider Active Start: January 11, 2025 End: January 11, 2025 Team Status: Inactive Member Role/Relationship Status Dates No Primary Care Physician Primary care physician Activ e Start: January 11, 2025 End: January 11, 2025 Butch Falcon SUPERVISOR PRE WAVE, SUPERVISOR PRE WAVE-C Referring Provider Active Start: January 11, 2025 End: January 11, 2025 Mally Maldonado CNM Attending physician Active Start: January 11, 2025 End: January 11, 2025 Team Status: Active Member Role/Relationship Status Dates No Primary Care Physician Primary care physician Activ e Start: January 11, 2025 Butch Falcon SUPERVISOR PRE WAVE, SUPERVISOR PRE WAVE-C Referring Provider Active Start: January 11, 2025 Mally Maldonado CNM Nurse Practitioner Active S tart: January 11, 2025 Dr. Yudith Harper DO Attending physician Active Start: December Team Status: Inactive Member Role/Relationship Status Dates No Primary Care Physician Primary care physician Activ e Start: January 17, 2025 End: January 17, 2025 No Primary Care Physician Referring Provider Active Start: January 17, 2025 End: January 17, 2025 Dr. Catie Krishnan MD Attending physician Active Start: January 17, 2025 End: January 17, 2025 Team Status: Inactive Member Role/Relationship Status Dates No Primary Care Physician Primary care physician Activ e Start: January 21, 2025 End: January 21, 2025 Mally Maldonado CNM Attending physician Active Start: January 21, 2025 End: January 21, 2025 Mally Maldonado CNM Referring Provider Active S tart: January 21, 2025 End: January 21, 2025 Team Status: Active Member Role/Relationship Status Dates No Primary Care Physician Primary care physician Activ e Start: January 21, 2025 Mally Maldonado CNM Attending physician Active Start: January 21, 2025 Mally Maldonado CNM Referring Provider Active S tart: January 21, 2025 Mally Maldonado CNM Nurse Practitioner Active S tart: January 21, 2025 Team Status: Inactive Member Role/Relationship Status Dates Butch Falcon NP, SUPERVISOR PRE WAVE-C Attending physician Active Start: September 28, 2024 End: September 28, 2024 Team Status: Inactive Member Role/Relationship Status Dates Dr. Catie Krishnan MD Attending physician Active Start: November 26, 2024 End: November 26, 2024 Team Status: Inactive Member Role/Relationship Status Dates No Primary Care Physician Primary care physician Activ e Start: December 16, 2024 End: December 16, 2024 Dr. Catie Krishnan MD Attending physician Active Start: December 16, 2024 End: December 16, 2024 Dr. Catie Krishnan MD Referring Provider Active Start: December 16, 2024 End: December 16, 2024 Team Status: Active Member Role/Relationship Status Dates No Primary Care Physician Primary care physician Activ e Start: December 16, 2024 Dr. Catie Krishnan MD Attending physician Active Start: December 16, 2024 Dr. Catie Krishnan MD Referring Provider Active Start: December 16, 2024 Dr. Catie Krishnan MD Nurse Practitioner Active Start: December 16, 2024 Team Status: Inactive Member Role/Relationship Status Dates Mally Maldonado CNM Attending physician Active Start: December 23, 2024 End: December 23, 2024 No Primary Care Physician Primary care physician Activ e Start: December 23, 2024 End: December 23, 2024 No Primary Care Physician Referring Provider Active Start: December 23, 2024 End: December 23, 2024 Team Status: Inactive Member Role/Relationship Status Dates Butch Falcon NP SUPERVISOR PRE WAVE-C Attending physician Active Start: January 11, 2025 End: January 11, 2025 No Primary Care Physician Primary care physician Activ e Start: January 11, 2025 End: January 11, 2025 No Primary Care Physician Referring Provider Active Start: January 11, 2025 End: January 11, 2025 Team Status: Inactive Member Role/Relationship Status Dates No Primary Care Physician Primary care physician Activ e Start: January 11, 2025 End: January 11, 2025 Butch Falcon SUPERVISOR PRE WAVE, SUPERVISOR PRE WAVE-C Referring Provider Active Start: January 11, 2025 End: January 11, 2025 Mally Maldonado CNM Attending physician Active Start: January 11, 2025 End: January 11, 2025 Team Status: Active Member Role/Relationship Status Dates No Primary Care Physician Primary care physician Activ e Start: January 11, 2025 Butch Falcon SUPERVISOR PRE WAVE, SUPERVISOR PRE WAVE-C Referring Provider Active Start: January 11, 2025 Mally Maldonado CNM Nurse Practitioner Active S tart: January 11, 2025 Dr. Yudith Harper DO Attending physician Active Start: December Team Status: Inactive Member Role/Relationship Status Dates No Primary Care Physician Primary care physician Activ e Start: January 17, 2025 End: January 17, 2025 No Primary Care Physician Referring Provider Active Start: January 17, 2025 End: January 17, 2025 Dr. Catie Krishnan MD Attending physician Active Start: January 17, 2025 End: January 17, 2025 Team Status: Inactive Member Role/Relationship Status Dates No Primary Care Physician Primary care physician Activ e Start: January 21, 2025 End: January 21, 2025 Mally Maldonado CNM Attending physician Active Start: January 21, 2025 End: January 21, 2025 Mally Maldonado CNM Referring Provider Active S tart: January 21, 2025 End: January 21, 2025 Team Status: Active Member Role/Relationship Status Dates No Primary Care Physician Primary care physician Activ e Start: January 21, 2025 Mally Maldonado CNM Attending physician Active Start: January 21, 2025 Mally Maldonado CNM Referring Provider Active S tart: January 21, 2025 Mally Maldonado CNM Nurse Practitioner Active S tart: January 21, 2025 Team Status: Inactive Member Role/Relationship Status Dates Dr. Catie Krishnan MD Attending physician Active Start: November 26, 2024 End: November 26, 2024 Team Status: Inactive Member Role/Relationship Status Dates No Primary Care Physician Primary care physician Activ e Start: December 16, 2024 End: December 16, 2024 Dr. Catie Krishnan MD Attending physician Active Start: December 16, 2024 End: December 16, 2024 Dr. Catie Krishnan MD Referring Provider Active Start: December 16, 2024 End: December 16, 2024 Team Status: Active Member Role/Relationship Status Dates No Primary Care Physician Primary care physician Activ e Start: December 16, 2024 Dr. Catie Krishnan MD Attending physician Active Start: December 16, 2024 Dr. Catie Krishnan MD Referring Provider Active Start: December 16, 2024 Dr. Catie Krishnan MD Nurse Practitioner Active Start: December 16, 2024 Team Status: Inactive Member Role/Relationship Status Dates Mally Maldonado CNM Attending physician Active Start: December 23, 2024 End: December 23, 2024 No Primary Care Physician Primary care physician Activ e Start: December 23, 2024 End: December 23, 2024 No Primary Care Physician Referring Provider Active Start: December 23, 2024 End: December 23, 2024 Team Status: Inactive Member Role/Relationship Status Dates Butch Falcon NP, SUPERVISOR PRE WAVE-C Attending physician Active Start: January 11, 2025 End: January 11, 2025 No Primary Care Physician Primary care physician Activ e Start: January 11, 2025 End: January 11, 2025 No Primary Care Physician Referring Provider Active Start: January 11, 2025 End: January 11, 2025 Team Status: Inactive Member Role/Relationship Status Dates No Primary Care Physician Primary care physician Activ e Start: January 11, 2025 End: January 11, 2025 Butch Falcon SUPERVISOR PRE WAVE, SUPERVISOR PRE WAVE-C Referring Provider Active Start: January 11, 2025 End: January 11, 2025 Mally Maldonado CNM Attending physician Active Start: January 11, 2025 End: January 11, 2025 Team Status: Active Member Role/Relationship Status Dates No Primary Care Physician Primary care physician Activ e Start: January 11, 2025 Butch Falcon SUPERVISOR PRE WAVE, SUPERVISOR PRE WAVE-C Referring Provider Active Start: January 11, 2025 Mally Maldnoado CNM Nurse Practitioner Active S tart: January 11, 2025 Dr. Yudith Harper DO Attending physician Active Start: December Team Status: Inactive Member Role/Relationship Status Dates No Primary Care Physician Primary care physician Activ e Start: January 17, 2025 End: January 17, 2025 No Primary Care Physician Referring Provider Active Start: January 17, 2025 End: January 17, 2025 Dr. Catie Krishnan MD Attending physician Active Start: January 17, 2025 End: January 17, 2025 Team Status: Inactive Member Role/Relationship Status Dates No Primary Care Physician Primary care physician Activ e Start: January 21, 2025 End: January 21, 2025 Mally Maldonado CNM Attending physician Active Start: January 21, 2025 End: January 21, 2025 Mally Maldonado CNM Referring Provider Active S tart: January 21, 2025 End: January 21, 2025 Team Status: Active Member Role/Relationship Status Dates No Primary Care Physician Primary care physician Activ e Start: January 21, 2025 Mally Maldonado CNM Attending physician Active Start: January 21, 2025 Mally Maldonado CNM Referring Provider Active S tart: January 21, 2025 Mally Maldonado CNM Nurse Practitioner Active S tart: January 21, 2025 Team Status: Inactive Member Role/Relationship Status Dates Dr. Catie Krishnan MD Attending physician Active Start: January 27, 2025 End: January 27, 2025 No Primary Care Physician Primary care physician Activ e Start: January 27, 2025 End: January 27, 2025 No Primary Care Physician Referring Provider Active Start: January 27, 2025 End: January 27, 2025 Team Status: Inactive Member Role/Relationship Status Dates No Primary Care Physician Primary care physician Activ e Start: February 02, 2025 End: February 02, 2025 No Primary Care Physician Referring Provider Active Start: February 02, 2025 End: February 02, 2025 Dr. Catie Krishnan MD Attending physician Active Start: February 02, 2025 End: February 02, 2025 Team Status: Inactive Member Role/Relationship Status Dates No Primary Care Physician Primary care physician Activ e Start: February 05, 2025 End: February 05, 2025 Mally Maldonado CNM Attending physician Active Start: February 05, 2025 End: February 05, 2025 Team Status: Active Member Role/Relationship Status Dates No Primary Care Physician Primary care physician Activ e Start: February 05, 2025 Mally Maldonado CNM Nurse Practitioner Active S tart: February 05, 2025 Dr. Yudith Harper DO Attending physician Acti ve Start: February 05, 2025 Team Status: Inactive Member Role/Relationship Status Dates No Primary Care Physician Primary care physician Activ e Start: February 16, 2025 End: February 16, 2025 No Primary Care Physician Referring Provider Active Start: February 16, 2025 End: February 16, 2025 Dr. Yudith Harper , DO Attending physician Acti ve Start: February 16, 2025 End: February 16, 2025 Team Status: Active Member Role/Relationship Status Dates No Primary Care Physician Primary care physician Activ e Start: February 16, 2025 Dr. Yudith Harper , DO Attending physician Acti ve Start: February 16, 2025 Team Status: Inactive Member Role/Relationship Status Dates No Primary Care Physician Primary care physician Activ e Start: February 16, 2025 End: February 16, 2025 Dr. Yudith Harper , DO Attending physician Acti ve Start: February 16, 2025 End: February 16, 2025 Team Status: Inactive Member Role/Relationship Status Dates No Primary Care Physician Primary care physician Activ e Start: February 24, 2025 End: February 24, 2025 No Primary Care Physician Referring Provider Active Start: February 24, 2025 End: February 24, 2025 Mally Maldonado CNM Attending physician Active Start: February 24, 2025 End: February 24, 2025 Team Status: Active Member Role/Relationship Status Dates No Primary Care Physician Primary care physician Activ e Start: February 24, 2025 Mally Maldonado CNM Attending physician Active Start: February 24, 2025 Goals (unrecognized section and content) Type Care Experience Labor Preferences-CB /BF classes: []labor support person: []labor intervention preferences: []pain management options preferred: []cut cord/dad catch: []: []PP control planned: []discussed possible routes of delivery and associated risks: []special requests: [] Scheduled Active and Recently Administ ered Medications (unrecognized section and content) Medication Order 01/11/2025 01/12/2025 01/13/2025 Acetaminophen-Caffeine (Excedrin Tension Headache) 500-65 MG per tablet 2 tablet (COMPLETED) 2 tablet, Oral, Once, On Fri01/11/25 at 2145, For 1 dose 2139 (Given - Provider: Cayla Kirkland RN) betamethasone acetate-betamethasone sodium phosphate (Celestone) injection 12 mg (COMPLETED) 12 mg, IntraMUSCular, Once, On Fri01/12/25 at 1330, For 1 dose 1436 (Given - Provider: Chica Rubio, KATRIN) influenza vaccine tiss-cult subunt (Flucelvax) STANDARD-DOSE injection 0.5 mL 0.5 mL, IntraMUSCular, Once, On Fri01/11/25 at 2145, For 1 dose vitamin tablet 1 tablet, Oral, Daily, First dose on Fri01/12/25 at 0900 0929 (Given - Provider: Ingrid Justice, KATRIN) 1110 (Given - Provider: Letty Bowen, KATRIN) sodium chloride 0.9% (NS) flush 10 mL 10 mL, IntraVENous, Every 12 hours scheduled (2 times per day), First dose on Fri01/11/25 at 2145 0249 (Not Given - Provider: Queenie Veronica RN - Reason: IV Fluids Infusing)0929 (Given - Provider: Ingrid Justice, KATRIN)2201 (Given - Provider: Gabrielle Kelley RN) 1110 (Given - Provider: Letty Bowen, KATRIN) Continuous Medication Order 01/11/2025 01/12/2025 01/13/2025 magnesium sulfate 20 GM/500ML infusion (CANCELED) 1,000 mg/hr (25 mL/hr), IntraVENous, Administer over 12 Hours, Continuous, Starting on Fri01/11/25 at 2145, For 4 hours, Pre-Infusion: Assess baseline vital signs (blood pressure, pulse, pulse oximetry, respirations, and temperature), respiratory status, intake and output, neurologic status (deep tendon reflexes, presence or absence of clonus, level of consciousness (LOC), presence of headaches/visual disturbances, presence/absence of epigastric pain, and if applicable Heart Rate/Contractions (continuous monitoring). Loading Dose and Maintenance Infusion: - Stay with the patient during the loading dose and the first hour of the infusion to monitor for adverse reactions. - Monitor the patient's vital signs (including pulse oximetry) and assess respiratory status, deep tendon reflexes, and level of consciousness every 15 minutes for the first hour after the start of the loading dose, then every 30 minutes for 1 hour, then every 2 hours thereafter unless more frequent assessments are warranted based on the patient's condition. Notify care provider immediately of absent deep tendon reflexes, a urine output of less than 30 mL/hour, respirations of less than 10 breaths/minute, or an oxygen saturation level of less than 95% Grams to milligrams conversion table: 1 gram = 1000 mg 2 grams = 2000 mg 4 grams = 4000 mg 6 grams = 6000 mg 20 grams = 20,000 mg, Indications: Neuroprotection 2114 (Rate/Dose Verify - Provider: Cayla Kirkland RN) 014 (Stopped - Provider: Queenie Veronica RN) PRN Medication Order 01/11/2025 01/12/2025 01/13/2025 acetaminophen (Tylenol) tablet 650 mg (CANCELED) 650 mg, Oral, Every 4 hours PRN, mild pain (1-3), Fever GREATER than 100.5 F (38 C), Starting on Fri01/11/25 at 2135, Maximum dose of acetaminophen is 4000 mg from all sources in 24 hours. 043 (Given - Provider: Queenie Veronica RN) acetaminophen (Tylenol) tablet 650 mg 650 mg, Oral, Every 4 hours PRN, mild pain (1-3), moderate pain (4-6), Fever GREATER than 100.5 F (38 C), Starting on Fri01/12/25 at 2152, Maximum dose of acetaminophen is 4000 mg from all sources in 24 hours. 2152 (Given - Provider: Gabrielle Kelley RN) calcium gluconate 10 % injection 1 g 1 g, IntraVENous, PRN, For suspected magnesium toxicity or for respiratory rate less than 6 per minute., Starting on Fri01/11/25 at 2113, Administer slow IV push over 5 minutes. ondansetron (Zofran) injection 4 mg(Linked Group 1) 4 mg, IntraVENous, Every 6 hours PRN, nausea, vomiting, Starting on Fri01/11/25 at 2135, 1st Line. Give IV if patient is unable to take orally. If inadequate response within 60 minutes, proceed to next-line agent or contact provider if no further options ordered. ondansetron ODT (Zofran-ODT) disintegrating tablet 4 mg(Linked Group 1) 4 mg, Oral, Every 8 hours PRN, nausea, vomiting, Starting on Fri01/11/25 at 2135, 1st Line. If inadequate response within 60 minutes, proceed to next-line agent or contact provider if no further options ordered. Patient should allow tablet to dissolve on tongue. Do not remove from blister pack until just before administering. sodium chloride 0.9 % infusion 5-250 mL/hr, IntraVENous, PRN, if patient receiving piggyback infusions and maintenance fluids are not ordered OR KVO fluids to protect IV site / prevent frequent line interruptions/ long duration, Starting on Fri01/11/25 at 2135, For piggyback infusion, administer at same rate as piggyback for a total of 25 mL. Enter 25 mL into dose field and piggyback rate into rate field of order. If piggyback is infusing at a rate less than 100 mL/hr, enter 25 mL into dose field and 100 mL/hr into rate field of order. For KVO fluids, enter rate of 20 mL/hr or less into rate field of order. sodium chloride 0.9% (NS) flush 10 mL 10 mL, IntraVENous, PRN, line care, Starting on Fri01/11/25 at 2135, After every IV line use Linked Groups Order Group 1: ondansetron ODT (Zofran-ODT) disintegrating tablet 4 mgJump to med 4 mg, Oral, Every 8 hours PRN, nausea, vomiting, Starting on Fri01/11/25 at 2135, 1st Line. If inadequate response within 60 minutes, proceed to next-line agent or contact provider if no further options ordered. Patient should allow tablet to dissolve on tongue. Do not remove from blister pack until just before administering. Or ondansetron (Zofran) injection 4 mgJump to med 4 mg, IntraVENous, Every 6 hours PRN, nausea, vomiting, Starting on Fri01/11/25 at 2135, 1st Line. Give IV if patient is unable to take orally. If inadequate response within 60 minutes, proceed to next-line agent or contact provider if no further options ordered. FOR RECORDS PERTAINING TO PATIENTS WHO ARE OR HAVE BEEN ENROLLED IN A CHEMICAL DEPENDENCY/SUBSTANCEABUSE PROGRAM, SOME INFORMATION MAY BE OMITTED. This clinical summary was aggregated from multiple sources. Caution should be exercised in using it in the provision of clinical care. This summary normalizes information from multiple sources, and as a consequence, information in this document may materially change the coding, format and clinical context of patient data. In addition, data may be omitted in some cases. CLINICAL DECISIONS SHOULD BE BASED ON THE PRIMARY CLINICAL RECORDS. [facility]. provides no warranty or guarantee of the accuracy or completeness of information in this document.
[2025-03-10] MEDS: LACTATED RINGERS 500 ML 999 ML IV (20:05)
[2025-03-10] MEDS: Lactated Ringers 1,000 ML 50 ML IV (20:05)
[2025-03-11] VITALS (60 sets, daily range): BP systolic 112–157; BP diastolic 69–96; PULSE 57–109; RESP 14–16; TEMP 36.1–37.2; O2SAT 98–100
[2025-03-11] MEDS: Lactated Ringers 1,000 ML 999 ML IV (00:13)
[2025-03-11] MEDS: Oxytocin 15 Units/NS 250ml 15 UNITS/250 ML IV.SOLN 2 UNITS IV (00:39)
[2025-03-11] MEDS: fentaNYL-bupivacaine (epidural) 100 ML BAG EPIDURAL ×2 (01:16→05:25)
[2025-03-11] MEDS: Penicillin G Pot 5,000,000 UNITS in 0.9% Normal Saline (100mL MB+) 100 ML 150 UNITS IV (01:27)
[2025-03-11] MEDS: Penicillin G 3,000,000 Units 50 ML 100 UNITS IV ×2 (05:56→09:49)
[2025-03-11] MEDS: Lactated Ringers 1,000 ML 200 ML IV (07:22)
--- NOTE | 2025-03-11 07:56 | PN_ITS ---
Progress Note comfortable with epidural current tracing: FHT: 120 Moderate variability reactive no decelerations category I tracing Voltaire: 2-3 minute Contractions Membranes:SROM for clear at 0750 with vaginal exam SVE:4/60/-1 Pitocin at 4mu A/P: Continue with position changes Titrate pitocin per protocol Epidural per anesthesia GBS pending Anticipate Dr Krishnan aware of above assessment and agrees with plan of care Assessment & Plan Assessment/Plan (1) Encounter for induction of labor: (2) Severe preeclampsia: (3) Hypertension affecting : (4) Threatened labor: (5) Anemia affecting in third trimester: (6) Supervision of high-risk : QUALIFIERS: Trimester: first trimester Qualified Code(s): O09.91 - Supervision of high risk , unspecified, first trimester (7) : QUALIFIERS: Weeks of gestation: 36 weeks Qualified Code(s): Z3A.36 - 36 weeks gestation of (8) Fibromyalgia: Multi Select Codes Urinary/Genital Urinary/Genital CPT Codes: No Charge
[2025-03-11] MEDS: Oxytocin 15 Units/NS 250ml 15 UNITS/250 ML IV.SOLN 334 UNITS IV (12:10)
--- NOTE | 2025-03-11 12:47 | EX.PCM.OBVAG ---
Assessment & Plan (1) Vaginal delivery: COMMENT: KW IOL pre e 36 weeks rui Adhikari (2) Encounter for induction of labor: COMMENT: severe Pre e (3) Severe preeclampsia: (4) Threatened labor: (5) Anemia affecting in third trimester: COMMENT: iron ordered, cbc next visit (6) Hypertension affecting : (7) Supervision of high-risk : QUALIFIERS: Trimester: first trimester Qualified Code(s): O09.91 - Supervision of high risk , unspecified, first trimester COMMENT: PRR G1, ZACK 04/05/25, rui Adhikari : Emeterio (8) : QUALIFIERS: Weeks of gestation: 36 weeks Qualified Code(s): Z3A.36 - 36 weeks gestation of COMMENT: NIPT-low risk declined afp and carrier. nl anatomy. (9) Fibromyalgia: Maternal Data Information ZACK Calculator Estimated Delivery Date Method Current WG Current Estimate 04/05/25 LMP (Certain) 36w 3d Other Estimates 04/03/25 Ultrasound #1 36w 5d Final ZACK: 04/05/25 Final ZACK Source: US >20 weeks Gestational age: 36.3 Vaginal Delivery Maternal Presentation Maternal Presentation: Medically Indicated Induction Maternal Presentation: Presented to unit for induction of labor for pre e at 36 weeks Vaginal Delivery Information Procedure Performed: Spontaneous Vaginal Delivery Surgeon/Practitioner: Mally Maldonado Date of Procedure: 03/11/25 Pre-Procedure Diagnosis: see problem list Post-Procedure Diagnosis: same Type of anesthesia: Epidural Estimated Blood Loss: 250 Time of Delivery: 11:37 Findings Description of procedure: Progressed well to 10cm dilated and made steady progress with effective maternal pushing. Delivered the head in JOHN presentation. The head was delivered atraumatically and a loose nuchal cord was identified and was easily reduced over the 's head. The anterior and posterior shoulders delivered without complication followed by the rest of the infant and the was placed on the maternal abdomen. Delayed cord clamping was employed for approximately 3 minutes. Cord was clamped and cut and gentle traction was applied to the cord and the placenta delivered spontaneously. Immediately following, it was noted to be intact with a 3 vessel cord. Uterine bleeding stable. The perineum and vagina were inspected and noted to have a second degree laceration which was repaired with 3-0 Vicryl in the usual fashion. EBL was 250. Patient and tolerated delivery well. Apgars 8/9. Dr Krishnan notified of vaginal delivery and orders reviewed. Physician agrees with current plan of care. 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
--- NOTE | 2025-03-11 12:53 | DCINST_ITS ---
Discharge Instructions DC O2, CPAP, BIPAP needs Home O2 Discharge instructions: No Dressing / Incision Discharge Activity: Return to Normal Activity May resume sexual activity in: 6-8 weeks Dressing / Incision Call your doctor if you observe: Fever of 101 or Higher, Coldness, Increased Pain, Numbness or Tingling, Change in Color, Inability to urinate, Inability to have a bowel movement, Using more than 1 pad per hour, Shortness of breath, Dizziness, Fainting spells, Swelling in the ankles, Chest pain, Increased palpitations (irregular heartbeat), Calf discomfort and Uncontrolled pain Follow Up Care Please Follow Up With: Mally Maldonado CNM When: Please call the office to schedule your follow up appointment in 6 weeks. If you had high blood pressure please call to schedule an appointment in 2 weeks. Test Results: Test results from this visit will be discussed in further detail at your follow- up appointment, if applicable. Discharge Plan Admission Admit Date/Time: 03/10/25 13:45 Attending Provider: Mally Maldonado Primary Care Provider: Care Physician,Denise Primary Discharge Orders/Prescriptions Prescriptions: No Action DHA 200 mg capsule 200 mg PO DAILY Patient Comments: 1 tablet po daily famotidine [Pepcid] 20 mg tablet 20 mg PO BID Qty: 60 5RF Referrals / Follow Up: Care Physician,No Primary [Primary Care Provider, Medical]
[2025-03-11] MEDS: Oxytocin 15 Units/NS 250ml 15 UNITS/250 ML IV.SOLN 83 UNITS IV (12:56)
[2025-03-11] MEDS: Senna/Docusate Sodium 1 Tablet PO (21:27)
[2025-03-12 01:35] VITALS: BP 132/89; PULSE 80; RESP 16; TEMP 36.7; O2SAT 99
[2025-03-12 04:45] VITALS: BP 127/95; PULSE 77; RESP 16; TEMP 36.7; O2SAT 99
[2025-03-12 08:48] VITALS: BP 128/81; PULSE 86; RESP 16; O2SAT 99
--- NOTE | 2025-03-12 09:28 | PN.OBGYN_ITS ---
Subjective Subjective Patient doing well without complaints. Tolerating PO. Ambulating and voiding without difficulty. Feeding well. Denies chest pain, shortness of breath, calf pain/swelling, fevers, chills, lightheadedness. Objective Data Objective Data Vital Signs: Vital Signs Temp Pulse Resp BP Pulse Ox O2 Del Method 98.1 F 86 16 128/81 H 99 Room Air 03/12/25 04:45 03/12/25 08:48 03/12/25 08:48 03/12/25 08:48 03/12/25 08:48 03/12/25 08:48 Oxygen Delivery Method Room Air Weight: 167 lb 4 oz Body Mass Index (BMI) 26.9 Intake & Output: Intake and Output for Last 24 Hours 03/10/25 03/11/25 03/12/25 23:59 23:59 23:59 Intake Total 500 / 500 3755.16 / 3755.16 Output Total 1250 / 1250 Balance 500 / 500 2505.16 / 2505.16 Lab / Micro Data 03/10/25 11:25 03/10/25 11:25 ROS Constitutional Constitutional: Reports systems reviewed and no addt'l complaints, except as documented; Denies anorexia or headache(s) Cardiovascular Cardiovascular: Reports systems reviewed and no addt'l complaints, except as documented; Denies dizziness, dyspnea, nausea or tachypnea Respiratory/Chest Respiratory/Chest: Reports systems reviewed and no addt'l complaints, except as documented; Denies cough, dyspnea, shortness of breath at rest or tachypnea Gastrointestinal Gastrointestinal: Reports systems reviewed and no addt'l complaints, except as documented; Denies abdominal pain, constipation or nausea Genitourinary Genitourinary: Reports systems reviewed and no addt'l complaints, except as documented; Denies burning urination, difficulty urinating, dysuria, urinary frequency or urinary incontinence Musculoskeletal Musculoskeletal: Reports systems reviewed and no addt'l complaints, except as documented Integumentary Integumentary: Reports systems reviewed and no addt'l complaints, except as documented Neurologic Neurologic: Reports systems reviewed and no addt'l complaints, except as documented; Denies abnormal speech, dizziness or headache(s) Psychiatric Psychiatric: Reports systems reviewed and no addt'l complaints, except as documented Endocrine Endocrinology: Reports systems reviewed and no addt'l complaints, except as documented Hematologic/Lymphatic Hematologic/Lymphatic: Reports systems reviewed and no addt'l complaints, except as documented Physical Exam Const alert, oriented x3 and no apparent distress Neck full ROM Resp normal respiratory effort, normal air movement and no retractions Effort and Inspection: able to speak in complete sentences and symmetric chest movement GI soft to palpation Bladder / Kidney Exam: bladder normal to palpation Uterus Palpation: uterus fundus firm Extremity normal to inspection and full ROM Psych mental status grossly normal, thought process normal and cooperative Assessment & Plan (1) Vaginal delivery: COMMENT: KW IOL pre e 36 weeks boy Onofre PLAN: s/p PPD # 1 1. routine post delivery care 2. breast feeding- support given 3. rh positive 4. rubella immune (2) Encounter for induction of labor: COMMENT: severe Pre e (3) Severe preeclampsia: (4) Hypertension affecting : (5) Threatened labor: (6) Anemia affecting in third trimester: COMMENT: iron ordered, cbc next visit (7) Supervision of high-risk : QUALIFIERS: Trimester: first trimester Qualified Code(s): O09.91 - Supervision of high risk , unspecified, first trimester COMMENT: PRR G1, ZACK 04/05/25, boy Onofre : Emeterio (8) : QUALIFIERS: Weeks of gestation: 36 weeks Qualified Code(s): Z 3A.36 - 36 weeks gestation of COMMENT: NIPT-low risk declined afp and carrier. nl anatomy. (9) Fibromyalgia: Charges/Coding Multi Select Codes Urinary/Genital Urinary/Genital CPT Codes: No Charge
[2025-03-12 16:46] VITALS: BP 128/91; PULSE 75; RESP 16; TEMP 36.9
[2025-03-12 20:48] VITALS: BP 135/86; PULSE 84; RESP 16; TEMP 36.4; O2SAT 98
[2025-03-13 01:45] VITALS: BP 125/89; PULSE 84; RESP 16; TEMP 36.4; O2SAT 99
[2025-03-13 08:00] VITALS: BP 119/81; PULSE 69; RESP 16; TEMP 36.3; O2SAT 98
--- NOTE | 2025-03-13 08:55 | PCM.PN.OB ---
Subjective Subjective Patient doing well without complaints. Tolerating PO. Ambulating and voiding without difficulty. Feeding well. Denies chest pain, shortness of breath, calf pain/swelling, fevers, chills, lightheadedness. Objective Data Objective Data Vital Signs: Vital Signs Temp Pulse Resp BP Pulse Ox O2 Del Method 97.5 F L 84 16 125/89 H 99 Room Air 03/13/25 01:45 03/13/25 01:45 03/13/25 01:45 03/13/25 01:45 03/13/25 01:45 03/13/25 01:45 Oxygen Delivery Method Room Air Weight: 167 lb 4 oz Body Mass Index (BMI) 26.9 Intake & Output: Intake and Output for Last 24 Hours 03/11/25 03/12/25 03/13/25 23:59 23:59 23:59 Intake Total 3755.16 / 3755.16 Output Total 1250 / 1250 Balance 2505.16 / 2505.16 Lab / Micro Data 03/10/25 11:25 03/10/25 11:25 ROS Constitutional Constitutional: Reports systems reviewed and no addt'l complaints, except as documented; Denies anorexia or headache(s) Cardiovascular Cardiovascular: Reports systems reviewed and no addt'l complaints, except as documented; Denies dizziness, dyspnea, nausea or tachypnea Respiratory/Chest Respiratory/Chest: Reports systems reviewed and no addt'l complaints, except as documented; Denies cough, dyspnea, shortness of breath at rest or tachypnea Gastrointestinal Gastrointestinal: Reports systems reviewed and no addt'l complaints, except as documented; Denies abdominal pain, constipation or nausea Genitourinary Genitourinary: Reports systems reviewed and no addt'l complaints, except as documented; Denies burning urination, difficulty urinating, dysuria, urinary frequency or urinary incontinence Musculoskeletal Musculoskeletal: Reports systems reviewed and no addt'l complaints, except as documented Integumentary Integumentary: Reports systems reviewed and no addt'l complaints, except as documented Neurologic Neurologic: Reports systems reviewed and no addt'l complaints, except as documented; Denies abnormal speech, dizziness or headache(s) Psychiatric Psychiatric: Reports systems reviewed and no addt'l complaints, except as documented Endocrine Endocrinology: Reports systems reviewed and no addt'l complaints, except as documented Hematologic/Lymphatic Hematologic/Lymphatic: Reports systems reviewed and no addt'l complaints, except as documented Physical Exam Const alert, oriented x3 and no apparent distress Neck full ROM Resp normal respiratory effort, normal air movement and no retractions Effort and Inspection: able to speak in complete sentences and symmetric chest movement GI soft to palpation Bladder / Kidney Exam: bladder normal to palpation Uterus Palpation: uterus fundus firm Extremity normal to inspection and full ROM Psych mental status grossly normal, thought process normal and cooperative Assessment & Plan (1) Vaginal delivery: COMMENT: KW IOL pre e 36 weeks rui Adhikari PLAN: s/p PPD # 2 1. routine post delivery care 2. breast feeding- support given 3. rh positive 4. rubella immune 5. Discharge home (2) Encounter for induction of labor: COMMENT: severe Pre e (3) Severe preeclampsia: (4) Hypertension affecting : (5) Threatened labor: (6) Anemia affecting in third trimester: COMMENT: iron ordered, cbc next visit (7) Supervision of high-risk : QUALIFIERS: Trimester: first trimester Qualified Code(s): O09.91 - Supervision of high risk , unspecified, first trimester COMMENT: PRR G1, ZACK 04/05/25, boy Onofre : Emeterio (8) : QUALIFIERS: Weeks of gestation: 36 weeks Qualified Code(s): Z3A.36 - 36 weeks gestation of COMMENT: NIPT-low risk declined afp and carrier. nl anatomy. (9) Fibromyalgia: Charges/Coding Multi Select Codes Urinary/Genital Urinary/Genital CPT Codes: No Charge
== END 2025-03-13 12:15 | disposition home or self-care (01) | DRG 807 ==
LOC: WPOUT 14:22 → WP 14:24
PROVIDERS: Obstetrics & Gynecology; Admitting Provider Advanced Practice Midwife; Referring Provider Advanced Practice Midwife; Visit Provider Advanced Practice Midwife
DX: O11.4 Pre-existing hypertension with pre-eclampsia, complicating childbirth (principal); Z37.0 Single live birth; O60.14X0 Preterm labor third trimester with preterm delivery third trimester, not applicable or unspecified; O10.02 Pre-existing essential hypertension complicating childbirth; M79.7 Fibromyalgia; Z3A.36 36 weeks gestation of pregnancy; O69.81X0 Labor and delivery complicated by cord around neck, without compression, not applicable or unspecified; O70.1 Second degree perineal laceration during delivery; O99.02 Anemia complicating childbirth; O99.892 Other specified diseases and conditions complicating childbirth
CPT/HCPCS: 59025; 59050; 82565; 82570; 84156; 84450; 84460; 84550; 85027; 86780; 86850; 86900; 86901; 99221; A4216; G0378; J2405

== ENCOUNTER → 2025-03-10 | Outpatient (CLI) | payer OTHER, SELFPAY | END | disposition home or self-care (01) | LOC: LABSPEC 12:10 | PROVIDERS: Visit Provider Obstetrics & Gynecology | DX: O09.91 Supervision of high risk pregnancy, unspecified, first trimester (principal) | CPT/HCPCS: 87081 ==

== ENCOUNTER 2025-03-21 15:39 | Outpatient (CLI) | payer OTHER, SELFPAY ==
[2025-03-21 15:46] VITALS: BMI 23.8
[2025-03-21 16:08] LABS: Hematocrit 34.2 % (37-47); Hemoglobin 11.5 g/dL (12.0-15.0); Mean Corp Hgb Conc 33.6 g/dL (32-36); Mean Corpuscular Volume 83.0 fL (81-99); Mean Platelet Vol. 9.0 fl (6.2-12.0); Platelet Count 538 K/mm3 (150-450); RBC Distribution Width CV 13.7 % (11.6-14.6); RBC Distribution Width SD 41.4 fl (35.1-43.9); Red Blood Count 4.12 M/mm3 (4.2-5.4); White Blood Count 10.3 K/mm3 (4.4-11.0)
[2025-03-21 16:31] LABS: AST(SGOT) 15 U/L (<=31); Alanine Aminotransfer ALT/SGPT 12 U/L (<=34); Estimated Creatinine Clearance 137.64 ml/min (50-250); Uric Acid 5.2 mg/dL (2.6-6.0)
--- NOTE | 2025-03-21 16:48 | NURSING ---
patient came into unit for evaluation on BP. Patient states that she was in urgent care this afternoon for a confirmed UTI and they checked her BP and it was elevated and suggested her to come to unit for further evaluation. Patient states that she has a NEWELL 5/10 that has been intermittent over past 5 days that tylenol and motrin are not effective for. Patient appears comfortable in bed, holding infant. During visit BP's are 128/101 134/92 141/101 126/96. Dr. Ramirez at nurses station and updated on patient complaint and reason for visit; informed of lab results and states patient can be discharged and to check BP at home and call office for BP check next week. This RN verbalized understanding and informed patient of POC, who verbalized understanding.
--- NOTE | 2025-03-21 16:54 | OB.TRI.PN ---
Progress Notes Progress Note: Bebe is a 24 year old s/p on 03/11 after induction for preeclampsia with severe features. She was seen at the urgent care today for a UTI which they prescribed her abx. While there she was noted to have severe range BP followed by a mild range BP. She also endorses a frontal headache 5/10 in severity. Otherwise no vision changes, chest pain, shortness of breath, RUQ pain. BP at home have been generally 130s/90s. Laboratory Studies: Laboratory Tests 03/21/25 Range/Units 16:00 WBC 10.3 (4.4-11.0) K/mm3 RBC 4.12 L (4.2-5.4) M/mm3 Hgb 11.5 L (12.0-15.0) g/dL Hct 34.2 L (37-47) % MCV 83.0 (81-99) fL MCH 27.9 (27.0-32.0) pg MCHC 33.6 (32-36) g/dL RDW Std Deviation 41.4 (35.1-43.9) fl RDW Coeff of Kelsie 13.7 (11.6-14.6) % Plt Count 538 H (150-450) K/mm3 MPV 9.0 (6.2-12.0) fl Creatinine 0.59 L (0.70-1.20) mg/dL Estim Creat Clear Calc 137.64 (50-250) ml/min Est GFR (MDRD) Non-Af 129 (>60) Uric Acid 5.2 (2.6-6.0) mg/dL AST 15 (<=31) U/L ALT 12 (<=34) U/L Assessment & Plan (1) Severe preeclampsia: QUALIFIERS: Trimester: unspecified trimester Qualified Code(s): O14.10 - Severe pre-eclampsia, unspecified trimester PLAN: PIH labs reviewed without any worsening of platelets, Cr, or LFTs BPs cycled and in the low mild range Preeclampsia precautions reviewed, advised patient to take BP twice a day and to present to triage if ever >160/110 or call the office if consistently >140/90 to start on antihypertensive medication BP check in office next week
== END 2025-03-21 16:50 | disposition home or self-care (01) ==
LOC: WPOUT 15:42 → WP 15:44
PROVIDERS: Obstetrics & Gynecology; Referring Provider Student in an Organized Health Care Education/Training Program; Visit Provider Student in an Organized Health Care Education/Training Program
DX: O14.10 Severe pre-eclampsia, unspecified trimester (principal); Z3A.00 Weeks of gestation of pregnancy not specified
CPT/HCPCS: 36415; 82565; 84450; 84460; 84550; 85027; 99221; G0378

== ENCOUNTER → 2025-03-23 | Outpatient (CLI) | payer OTHER, SELFPAY | END | disposition home or self-care (01) | PROVIDERS: Referring Provider Obstetrics & Gynecology; Visit Provider Obstetrics & Gynecology | DX: N89.8 Other specified noninflammatory disorders of vagina (principal); N94.89 Other specified conditions associated with female genital organs and menstrual cycle; R30.0 Dysuria | CPT/HCPCS: 87070; 87086; 87088; 87205 ==

== ENCOUNTER → 2025-03-25 | Outpatient (CLI) | payer OTHER, SELFPAY ==
--- OUTSIDE RECORDS SUMMARY | 2025-03-25 08:32 | XMS RPT_ITS | CCD ---
Author Organization [facility] Care Team Providers Care Java Web User Interface Developer Name Role Phone Unavailable Primary Care Provider UnavailEDIS Magana Attending Unavailable EDIS BROOKS Primary Care Unavailable EDIS BROOKS Admitting Unavailable Mally Maldonado CNM Attending Provider [phone] Dr. Yudith Harper DO Attending Provider Dr. Yudith Harper DO Referring Provider Butch Pablo Attending Provider [phone] Dr. Catie Krishnan MD Attending Provider Care Physician, No Primary Primary Care Provider Unavailable Dr. Catie Krishnan MD Referring Provider [phone] Dr. Catie Krishnan MD Other Provider [phone] Mally Maldonado CNM Attending Provider 1(330) Care Physician, No Primary Referring Provider Un available Butch Pablo Referring Provider [phone] Mally Maldonado CNM Other Provider [phone]) Dr. Yudith Harper DO Attending Provider Unavailable Primary Care Provider UnavailJENNIFER De Luna Consulting Unavailable MONA HUGHES Admitting Unavailable MONA HUGHES Attending Unavailable Butch Pablo Attending Physician [phone] Dr. Catie Krishnan MD Attending Physician Care Physician, No Primary Primary Care Physicia n Unavailable Dr. Catie Krishnan MD Nurse Practitioner Mally Maldonado CNM Attending Physician [phone] Mally Maldonado CNM Nurse Practitioner [phone]) Dr. Yudith Harper DO Attending Physician Mally Maldonado CNM Referring Provider [phone]) Ezekiel AWS DEVELOPER-C, Butch Attending Physician [phone] Ezekiel AWS DEVELOPER-C, Butch Attending Physician [phone] YUDITH MARTE Attending [...] Provider Ariella BLAND, Dr. Haddad Nurse Practitioner Joel BAILON, Mally Attending Physician [phone] Care Physician, No Primary Referring Provider Un available Ezekiel AWS DEVELOPER-C, Butch Attending Physician [phone] [place] AWS DEVELOPER-C, Butch Referring Provider [phone] Mally Maldonado CNM Nurse Practitioner [phone]) Sadaf Montero DO, Dr. Zurita Attending Physician Mally Maldonado CNM Referring Provider [phone]) Care Physician, No Primary Referring Unava ilable Care Physician, No Primary Primary Care Unava ilable Mally Maldonado Attending Unavailable Ezekiel AWS DEVELOPER, Butch Referring Unavailable Yudith Harper Attending Unavailabl e Care Physician, No Primary Primary Care Unava ilable Mally Maldonado Consulting Unavailable Care Physician, No Primary Primary Care Unava ilable Yudith Harper Attending Unavailabl e Mally Maldonado Consulting Unavailable Mally Maldonado Consulting Unavailable Mally Maldonado Referring Unavailable Mally Maldonado Attending Unavailable Care Physician, No Primary Primary Care Unava ilable [place] AWS DEVELOPER, Butch Referring Unavailable Care Physician, No Primary [...] Care Physician, No Primary Referring Unava ilable [place] AWS DEVELOPER, Butch Attending Unavailable Care Physician, No Primary [...] Attending Unavailabl e MarcanthonyCatie Attending Unavailable Ezekiel AWS DEVELOPER, Butch Attending Unavailable [place] AWS DEVELOPER, Butch Attending Unavailable Vande Veljoy, Yudith Referring [...] Latex; Translations: [LATEX] Allergy to substance 5 [facility] (2 sources) Latex Propensity to adverse reactions 5 [facility] (1 source) Latex Drug allergy (disorder) [facility] Medications Current Medications Medication Drug Class(es) [...] oral solution (3 sources) alpha-Adrenergic Agonist, Uncompetitive W-lyfkmv-I-aspart[place] te Receptor Antagonist, Sigma-1 Agonist Start: 01-14-2024 [...] is a family his tory. Dad had NH at 42 and factor 5 was diagnosed. [...] Auto (Unsp spec) [#/Vol] 1.88 10*3/uL 0.83-4.51 [facility] Absolute neutrophil countOrd ered By: Mally Maldonado on 02-24-2025 Neutrophils (Bld) [#/Vol] 12.6 10*3/uL High 2.0-7.7 [facility] Anion gap in Serum or Plasma Ordered By: Mally Maldonado on 02-24-2025 Anion gap [Moles/Vol] 11 mmol/L 5-15 [facility] Automated lymphocyte count a s percentage of total leukocytesOrdered By: Mally Maldonado on 02-24-2025 Lymphocytes/100 WBC Auto (Unsp spec) 12.1 % Low 19-41 [facility] BUN/creatinine ratioOrdered By: Mally Maldonado on 02-24-2025 Urea nitrogen/Creatinine [Mass ratio] 10.2 mg/mg 10- [facility] Basophil percentageOrdered B y: Mally Maldonado on 02-24-2025 Basophils/100 WBC (Bld) 0.2 % 0-1 [facility] Bilirubin, totalOrdered By: Mally Maldonado on 02-24-2025 Bilirubin [Mass/Vol] 0.71 mg/dL 0.00-1.30 [facility] CBC W/Diff, Automatedon 01-28 Absolute Lymph 1.88 X10 3/uL Normal 0.83-4.51 [facility] Comment on above: Performed By: #### L 500.4050, L501.0900 #### [facility] [address] [place], [address] Absolute Neut 12.6 X10 3/uL High 2.0-7.7 [facility] Comment on above: Performed By: #### L 500.4050, L501.0900 #### [facility] [address] [place], [address] Basophils/100 WBC (Bld) 0.2 % Normal 0-1 [facility] Comment on above: Performed By: #### L 500.4050, L501.0900 #### [facility] [address] [place], [address] Eosinophils/100 WBC (Bld) 0.4 % Normal 0-5 [facility] Comment on above: Performed By: #### L 500.4050, L501.0900 #### [facility] [address] [place], [address] Erythrocyte distribution width (RBC) [Ratio] 13.1 % Normal 11.6-14.6 [facility] Comment on above: Performed By: #### L 500.4050, L501.0900 #### [facility] [address] [place], [address] Hematocrit (Bld) [Volume fraction] 32.5 % Low 37-47 [facility] Comment on above: Performed By: #### L 500.4050, L501.0900 #### [facility] [address] [place], [address] Hemoglobin (Bld) [Mass/Vol] 11.2 g/dL Low 12.0-15.0 [facility] Comment on above: Performed By: #### L 500.4050, L501.0900 #### [facility] [address] [place], [address] IG% 0.800 Normal 0.0-0.9 [facility] Comment on above: Result Comment: IG% - Immature Granulocytes (promyelocytes, myelocytes and metamyelocytes) > 1% indicates that a LEFT SHIFT is Present. Performed By: #### L 500.4050, L501.0900 #### [facility] [address] [place], [address] Lymphocytes/100 WBC (Bld) 12.1 % Low 19-41 [facility] Comment on above: Performed By: #### L 500.4050, L501.0900 #### [facility] [address] [place], [address] MCH (RBC) [Entitic mass] 28.6 pg Normal 27.0-32.0 [facility] Comment on above: Performed By: #### L 500.4050, L501.0900 #### [facility] [address] [place], [address] MCHC (RBC) [Mass/Vol] 34.5 g/dL Normal 32-36 [facility] Comment on above: Performed By: #### L 500.4050, L501.0900 #### [facility] [address] [place], [address] MCV (RBC) [Entitic vol] 82.9 fL Normal 81-99 [facility] Comment on above: Performed By: #### L 500.4050, L501.0900 #### [facility] [address] [place], [address] Monocytes/100 WBC (Bld) 6.0 % Normal 0-10 [facility] Comment on above: Performed By: #### L 500.4050, L501.0900 #### [facility] [address] [place], [address] Neutrophils/100 WBC (Bld) 80.5 % High 47-70 [facility] Comment on above: Performed By: #### L 500.4050, L501.0900 #### [facility] [address] [place], [address] Nucleated RBC (Bld) [#/Vol] 0 10*3/uL Normal 0-5 [facility] Comment on above: Performed By: #### L 500.4050, L501.0900 #### [facility] [address] [place], [address] Platelet mean volume (Bld) [Entitic vol] 10.3 fL Normal 6.2-12.0 [facility] Comment on above: Performed By: #### L 500.4050, L501.0900 #### [facility] [address] [place], [address] Platelets (Bld) [#/Vol] 427 10*3/uL Normal 150-450 [facility] Comment on above: Performed By: #### L 500.4050, L501.0900 #### [facility] [address] [place], [address] RBC (Bld) [#/Vol] 3.92 10*6/uL Low 4.2-5.4 [facility] Comment on above: Performed By: #### L 500.4050, L501.0900 #### [facility] [address] [place], [address] RDW SD 39.4 fl Normal 35.1-43.9 [facility] Comment on above: Performed By: #### L 500.4050, L501.0900 #### [facility] [address] [place], [address] WBC (Bld) [#/Vol] 15.6 10*3/uL High 4.4-11.0 [facility] Comment on above: Performed By: #### L 500.4050, L501.0900 #### [facility] [address] [place], [address] Carbon dioxide, total [Moles /volume] in Central venous bloodOrdered By: Mally Maldonado on 02-24-2025 CO2 [Moles/Vol] 22.5 mmol/L 21.0-32.0 [facility] Chloride assayOrdered By: Lei Maldonado on 02-24-2025 Chloride [Moles/Vol] 102 mmol/L 98-108 [facility] Comprehensive Metabolic Prof ilon 02-24-2025 Albumin [Mass/Vol] 3.8 g/dL Normal 3.5-5.0 [facility] Comment on above: Performed By: #### L 500.4050, L501.0900 #### [facility] [address] [place], [address] Albumin/Globulin [Mass ratio] 1.0 {ratio} Normal 0.9-2.4 [facility] Comment on above: Performed By: #### L 500.4050, L501.0900 #### [facility] [address] [place], [address] ALK PHOS 159 U/L High 35-104 [facility] Comment on above: Performed By: #### L 500.4050, L501.0900 #### [facility] [address] [place], [address] ALT [Catalytic activity/Vol] 9 U/L Normal <=34 [facility] Comment on above: Performed By: #### L 500.4050, L501.0900 #### [facility] [address] [place], [address] AST [Catalytic activity/Vol] 15 U/L Normal <=31 [facility] Comment on above: Performed By: #### L 500.4050, L501.0900 #### [facility] [address] [place], [address] Bilirubin [Mass/Vol] 0.71 mg/dL Normal 0.00-1.30 [facility] Comment on above: Performed By: #### L 500.4050, L501.0900 #### [facility] [address] [place], [address] BUN/CRE 10.2 RATIO Normal 10-20 [facility] Comment on above: Performed By: #### L 500.4050, L501.0900 #### [facility] [address] [place], [address] Calcium [Mass/Vol] 9.2 mg/dL Normal 7.6-11.0 [facility] Comment on above: Performed By: #### L 500.4050, L501.0900 #### [facility] [address] [place], [address] Chloride [Moles/Vol] 102 mmol/L Normal 98-108 [facility] Comment on above: Performed By: #### L 500.4050, L501.0900 #### [facility] [address] [place], [address] CO2 [Moles/Vol] 22.5 mmol/L Normal 21.0-32.0 [facility] Comment on above: Performed By: #### L 500.4050, L501.0900 #### [facility] [address] [place], [address] Creatinine [Mass/Vol] 0.58 mg/dL Low 0.70-1.20 [facility] Comment on above: Performed By: #### L 500.4050, L501.0900 #### [facility] [address] [place], [address] GAP 11 Normal 5-15 [facility] Comment on above: Performed By: #### L 500.4050, L501.0900 #### [facility] [address] [place], [address] GFR/1.73 sq M.predicted among non-blacks MDRD (S/P/Bld) [Vol rate/Area] 130 mL/min/{1.73_m2} Normal >60 [facility] Comment on above: Result Comment: mL/m in/1.73m2 CKD-EPI Creatinine Equation (2020) Performed By: #### L 500.4050, L501.0900 #### [facility] [address] [place], [address] Globulin (S) [Mass/Vol] 3.6 g/dL Normal 2.2-4.2 [facility] Comment on above: Performed By: #### L 500.4050, L501.0900 #### [facility] [address] [place], [address] Glucose [Mass/Vol] 80 mg/dL Normal 70-99 [facility] Comment on above: Performed By: #### L 500.4050, L501.0900 #### [facility] [address] [place], [address] Potassium [Moles/Vol] 3.7 mmol/L Normal 3.3-5.1 [facility] Comment on above: Performed By: #### L 500.4050, L501.0900 #### [facility] [address] [place], [address] Sodium [Moles/Vol] 135 mmol/L Normal 133-145 [facility] Comment on above: Performed By: #### L 500.4050, L501.0900 #### [facility] [address] [place], [address] T PROT 7.4 g/dL Normal 5.9-8.4 [facility] Comment on above: Performed By: #### L 500.4050, L501.0900 #### [facility] [address] [place], [place], [address] Urea nitrogen [Mass/Vol] 6 mg/dL Normal 4-19 [facility] Comment on above: Performed By: #### L 500.4050, L501.0900 #### [facility] [address] [place], [address] Eosinophil percentageOrdered By: Mally Maldonado on 02-24-2025 Eosinophils/100 WBC (Bld) 0.4 % 0-5 [facility] Erythrocyte distribution wid th ratioOrdered By: Mally Maldonado on 02-24-2025 Erythrocyte distribution width (RBC) [Ratio] 13.1 % 11.6-14.6 [facility] Erythrocyte distribution wid th standard deviationOrdered By: Mally Maldonado on 02-24-2025 Erythrocyte distribution width (RBC) [Ratio] 39.4 fl 35.1-43.9 [facility] Glomerular filtration rate ( GFR) estimation/1.73 sq m using serum, plasma, or whole bOrdered By: Mally Maldonado on 02-24-2025 GFR/1.73 sq M.predicted among non-blacks MDRD (S/P/Bld) [Vol rate/Area] 130 mL/min/{1.73_m2} >60 [facility] Comment on above: mL/min/1.73m2 CKD-EP I Creatinine Equation (2020) Hematocrit Auto (Bld) [Volum e fraction]Ordered By: Mally Maldonado on 02-24-2025 Hematocrit (Bld) [Volume fraction] 32.5 % Low 37-47 [facility] Hemoglobin measurementOrdere d By: Mally Maldonado on 02-24-2025 Hemoglobin (Bld) [Mass/Vol] 11.2 g/dL Low 12.0-15.0 [facility] Immature granulocytes/100 WB C Auto (Bld)Ordered By: Mally Maldonado on 02-24-2025 Immature granulocytes/100 WBC (Bld) 0.800 % 0.0-0.9 [facility] Comment on above: IG% - Immature Granu locytes (promyelocytes, myelocytes and metamyelocytes) > 1% indicates that a LEFT SHIFT is Present. Laboratory - Chemistry and C hemistry - challengeOrdered By: Mally Maldonado on 02-24-2025 AST [Catalytic activity/Vol] 15 U/L <32 [facility] Glucose Ql (U) Negative [facility] - UrinalysisOrder ed By: Mally Maldonado on 02-24-2025 Protein Ql (U) Trace [facility] MCV (mean corpuscular volume ) determinationOrdered By: Mally Maldonado on 02-24-2025 MCV (RBC) [Entitic vol] 82.9 fL 81-99 [facility] Mean corpuscular hemoglobin (MCH) determinationOrdered By: Mally Maldonado on 02-24-2025 MCH (RBC) [Entitic mass] 28.6 pg 27.0-32.0 [facility] Mean corpuscular hemoglobin concentration (MCHC) determinationOrdered By: Mally Maldonado on 02-24-2025 MCHC (RBC) [Mass/Vol] 34.5 g/dL 32-36 [facility] Mean platelet volume determi nationOrdered By: Mally Maldonado on 02-24-2025 Platelet mean volume (Bld) [Entitic vol] 10.3 fL 6.2-12.0 [facility] Monocyte percentageOrdered B y: Mally Maldonado on 02-24-2025 Monocytes/100 WBC (Bld) 6.0 % 0-10 [facility] Neutrophil percentageOrdered By: Mally Maldonado on 02-24-2025 Neutrophils/100 WBC (Bld) 80.5 % High 47-70 [facility] Nucleated red blood cell per centageOrdered By: Mally Maldonado on 02-24-2025 Nucleated RBC/100 WBC (Bld) [Ratio] 0 % 0-5 [facility] Strategy Consultant Office Visit Reporton 02-24-2025 Strategy Consultant Office Visit Report [facility] [address], [address] [place] [address] OFFICE VISIT Date of Service: 02/24/25 MR#: [id number] Acct: [id number] Name: ALLEYLEONOR BRENDA Rep #: [id number] : 2000 Provider: UVALDO Medeiros ams Age/Sex: 24/F [place] [facility] [place]: Signed Intake Vital Signs 01/11/25 09:24 02/16/25 08:42 02/24/25 10:58 02/24/25 11:05 Height 5 ft 6 in 5 ft 6 in 5 ft 6 in Weight: 163 lb 2 oz BMI 26.3 BP 142/98 H 135/92 H Intake Visit Reasons: 34wk2d ob Chief Complaint: 34wk OB Pointer Helper Required: No Is patient in pain?: No [...] 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 (more content not included)... Normal [facility] Platelet countOrdered By: Lei Maldonado on 02-24-2025 Platelets (Bld) [#/Vol] 427 10*3/uL 150-450 [facility] Potassium measurement (mass/ volume)Ordered By: Mally Maldonado on 02-24-2025 Potassium (Unsp spec) [Mass/Vol] 3.7 mmol/L 3.3-5.1 [facility] Protein+Creatinine Ratio,Uri neon 02-24-2025 PROT:CRE RATIO 259 mg/g CRE High 0-200 [facility] Comment on above: Performed By: #### L 3890.6006, L100.0100, L501.0250, L509.8002 #### [facility] [address] [place], [address] PROTEIN,UR.RAN. < 6.0 Normal 0.0-12.0 [facility] Comment on above: Performed By: #### L 3890.6006, L100.0100, L501.0250, L509.8002 #### [facility] [address] [place], [address] UR CREAT 22.60 mg/dL Low 28.00-217.00 [facility] Comment on above: Performed By: #### L 3890.6006, L100.0100, L501.0250, L509.8002 #### [facility] [address] [place], [address] RBC Auto (Bld) [#/Vol]Ordere d By: Mally Maldonado on 02-24-2025 RBC (Bld) [#/Vol] 3.92 10*6/uL Low 4.2-5.4 [facility] Random urine creatinine mraiza urement (mass/volume)Ordered By: Mally Maldonado on 02-24-2025 Creatinine Unsp time (U) [Mass/Vol] 22.60 mg/dL Low 28.00-217.00 [facility] Serum creatinine measurement (mass/volume)Ordered By: Mally Maldonado on 02-24-2025 Creatinine [Mass/Vol] 0.58 mg/dL Low 0.70-1.20 [facility] Serum globulin measurementOr dered By: Mally Maldonado on 02-24-2025 Globulin (S) [Mass/Vol] 3.6 g/dL 2.2-4.2 [facility] Serum glucose measurement (m ass/volume)Ordered By: Mally Maldonado on 02-24-2025 Glucose [Mass/Vol] 80 mg/dL 70-99 [facility] Serum or plasma alanine villaseñor otransferase (ALT) measurementOrdered By: Mally Maldonado on 02-24-2025 ALT [Catalytic activity/Vol] 9 U/L <35 [facility] Serum or plasma albumin mariza urement (mass/volume)Ordered By: Mally Maldonado on 02-24-2025 Albumin [Mass/Vol] 3.8 g/dL 3.5-5.0 [facility] Serum or plasma albumin/glob ulin mass ratioOrdered By: Mally Maldonado on 02-24-2025 Albumin/Globulin [Mass ratio] 1.0 {ratio} 0.9-2.4 [facility] Serum or plasma alkaline vicky sphatase measurementOrdered By: Mally Maldonado on 02-24-2025 ALP [Catalytic activity/Vol] 159 U/L High 35-104 [facility] Serum or plasma calcium mariza urement (mass/volume)Ordered By: Mally Maldonado on 02-24-2025 Calcium [Mass/Vol] 9.2 mg/dL 7.6-11.0 [facility] Serum or plasma urea nitroge n measurement (mass/volume)Ordered By: Mally Maldonado on 02-24-2025 Urea nitrogen [Mass/Vol] 6 mg/dL 4-19 [facility] Sodium levelOrdered By: Jyoti Maldonado on 02-24-2025 Sodium [Moles/Vol] 135 mmol/L 133-145 [facility] Total proteinOrdered By: Duy Maldonado on 02-24-2025 Protein [Mass/Vol] 7.4 g/dL 5.9-8.4 [facility] Urine protein measurement (m ass/volume)Ordered By: Mally Maldonado on 02-24-2025 Protein (U) [Mass/Vol] mg/dL 0.0-12.0 [facility] Urine protein/creatinine mas s ratioOrdered By: Mally Maldonado on 02-24-2025 Protein/Creatinine (U) [Mass ratio] 259 mg/g CRE High 0-200 [facility] White blood cell (WBC) count Ordered By: Mally Maldonado on 02-24-2025 WBC (Bld) [#/Vol] 15.6 10*3/uL High 4.4-11.0 [facility] Absolute lymphocyte countOrd ered By: Yudith Montero on 02-16-2025 Lymphocytes Auto (Unsp spec) [#/Vol] 1.65 10*3/uL 0.83-4.51 [facility] Absolute neutrophil countOrd ered By: Yudith Montero on 02-16-2025 Neutrophils (Bld) [#/Vol] 8.7 10*3/uL High 2.0-7.7 [facility] Anion gap in Serum or Plasma Ordered By: Yudith Montero on 02-16-2025 Anion gap [Moles/Vol] 13 mmol/L 5-15 [facility] Automated lymphocyte count a s percentage of total leukocytesOrdered By: Yudith Montero on 02-16-2025 Lymphocytes/100 WBC Auto (Unsp spec) 14.7 % Low 19-41 [facility] BUN/creatinine ratioOrdered By: Yudith Montero on 02-16-2025 Urea nitrogen/Creatinine [Mass ratio] 15.8 mg/mg 10-20 [facility] Basophil percentageOrdered B y: Yudith Montero on 02-16-2025 Basophils/100 WBC (Bld) 0.4 % 0-1 [facility] Bilirubin, totalOrdered By: Yudith Montero on 02-16-2025 Bilirubin [Mass/Vol] 0.60 mg/dL Normal 0.00-1.30 [facility] Comment on above: Performed By: #### L 500.4050, L501.0900 #### [facility] [address] [place], [place] [address], [address] CBC W/Diff, Automatedon 10-2 Absolute Lymph 1.65 X10 3/uL Normal 0.83-4.51 [facility] Comment on above: Performed By: #### L 500.4050, L501.0900 #### [facility] [address] [place], [address] Absolute Neut 8.7 X10 3/uL High 2.0-7.7 [facility] Comment on above: Performed By: #### L 500.4050, L501.0900 #### [facility] [address] [place], [address] Basophils/100 WBC (Bld) 0.4 % Normal 0-1 [facility] Comment on above: Performed By: #### L 500.4050, L501.0900 #### [facility] [address] [place], [address] Eosinophils/100 WBC (Bld) 0.8 % Normal 0-5 [facility] Comment on above: Performed By: #### L 500.4050, L501.0900 #### [facility] [address] [place], [address] Erythrocyte distribution width (RBC) [Ratio] 13.0 % Normal 11.6-14.6 [facility] Comment on above: Performed By: #### L 500.4050, L501.0900 #### [facility] [address] [place], [address] Hematocrit (Bld) [Volume fraction] 32.2 % Low 37-47 [facility] Comment on above: Performed By: #### L 500.4050, L501.0900 #### [facility] [address] [place], [address] Hemoglobin (Bld) [Mass/Vol] 10.6 g/dL Low 12.0-15.0 [facility] Comment on above: Performed By: #### L 500.4050, L501.0900 #### [facility] [address] [place], [address] IG% 1.600 High 0.0-0.9 [facility] Comment on above: Result Comment: IG% - Immature Granulocytes (promyelocytes, myelocytes and metamyelocytes) > 1% indicates that a LEFT SHIFT is Present. Performed By: #### L 500.4050, L501.0900 #### [facility] [address] [place], [address] Lymphocytes/100 WBC (Bld) 14.7 % Low 19-41 [facility] Comment on above: Performed By: #### L 500.4050, L501.0900 #### [facility] [address] [place], [address] MCH (RBC) [Entitic mass] 28.5 pg Normal 27.0-32.0 [facility] Comment on above: Performed By: #### L 500.4050, L501.0900 #### [facility] [facility] [address] [place], [address] MCHC (RBC) [Mass/Vol] 32.9 g/dL Normal 32-36 [facility] Comment on above: Performed By: #### L 500.4050, L501.0900 #### [facility] [address] [place], [address] MCV (RBC) [Entitic vol] 86.6 fL Normal 81-99 [facility] Comment on above: Performed By: #### L 500.4050, L501.0900 #### [facility] [address] [place], [address] Monocytes/100 WBC (Bld) 5.0 % Normal 0-10 [facility] Comment on above: Performed By: #### L 500.4050, L501.0900 #### [facility] [address] [place], [address] Neutrophils/100 WBC (Bld) 77.5 % High 47-70 [facility] Comment on above: Performed By: #### L 500.4050, L501.0900 #### [facility] [address] [place], [address] Nucleated RBC (Bld) [#/Vol] 0 10*3/uL Normal 0-5 [facility] Comment on above: Performed By: #### L 500.4050, L501.0900 #### [facility] [address] [place], [address] Platelet mean volume (Bld) [Entitic vol] 10.2 fL Normal 6.2-12.0 [facility] Comment on above: Performed By: #### L 500.4050, L501.0900 #### [facility] [address] [place], [address] Platelets (Bld) [#/Vol] 367 10*3/uL Normal 150-450 [facility] Comment on above: Performed By: #### L 500.4050, L501.0900 #### [facility] [address] [place], [address] RBC (Bld) [#/Vol] 3.72 10*6/uL Low 4.2-5.4 [facility] Comment on above: Performed By: #### L 500.4050, L501.0900 #### [facility] [address] [place], [address] RDW SD 40.3 fl Normal 35.1-43.9 [facility] Comment on above: Performed By: #### L 500.4050, L501.0900 #### [facility] [address] [place], [address] WBC (Bld) [#/Vol] 11.2 10*3/uL High 4.4-11.0 [facility] Comment on above: Performed By: #### L 500.4050, L501.0900 #### [facility] [address] [place], [address] Carbon dioxide, total [Moles /volume] in Central venous bloodOrdered By: Yudith Montero on 02-16-2025 CO2 [Moles/Vol] 19.5 mmol/L Low 21.0-32.0 [facility] Comment on above: Performed By: #### L 500.4050, L501.0900 #### [facility] [address] [place], [address] Chloride assayOrdered By: Leonard Montero on 02-16-2025 Chloride [Moles/Vol] 104 mmol/L Normal 98-108 [facility] Comment on above: Performed By: #### L 500.4050, L501.0900 #### [facility] [address] [place], [address] Comprehensive Metabolic Prof ilon 02-16-2025 ALK PHOS 136 U/L High 35-104 [facility] Comment on above: Performed By: #### L 500.4050, L501.0900 #### [facility] [address] [place], [address] BUN/CRE 15.8 RATIO Normal 10-20 [facility] Comment on above: Performed By: #### L 500.4050, L501.0900 #### [facility] [address] [place], [address] GAP 13 Normal 5-15 [facility] Comment on above: Performed By: #### L 500.4050, L501.0900 #### [facility] [address] [place], [address] Potassium [Moles/Vol] 3.6 mmol/L Normal 3.3-5.1 [facility] Comment on above: Performed By: #### L 500.4050, L501.0900 #### [facility] [address] [place], [place], [address] T PROT 6.8 g/dL Normal 5.9-8.4 [facility] Comment on above: Performed By: #### L 500.4050, L501.0900 #### [facility] [address] [place], [address] Comprehensive Metabolic Prof ilOrdered By: Yudith Montero on 02-16-2025 AST [Catalytic activity/Vol] 14 U/L Normal <=31 [facility] Comment on above: Performed By: #### L 500.4050, L501.0900 #### [facility] [address] [place], [address] Eosinophil percentageOrdered By: Yudith Montero on 02-16-2025 Eosinophils/100 WBC (Bld) 0.8 % 0-5 [facility] Erythrocyte distribution wid th ratioOrdered By: Yudith Montero on 02-16-2025 Erythrocyte distribution width (RBC) [Ratio] 13.0 % 11.6-14.6 [facility] Erythrocyte distribution wid th standard deviationOrdered By: Yudith Montero on 02-16-2025 Erythrocyte distribution width (RBC) [Ratio] 40.3 fl 35.1-43.9 [facility] Glomerular filtration rate ( GFR) estimation/1.73 sq m using serum, plasma, or whole bOrdered By: Yudith Montero on 02-16-2025 GFR/1.73 sq M.predicted among non-blacks MDRD (S/P/Bld) [Vol rate/Area] 133 mL/min/{1.73_m2} Normal >60 [facility] Comment on above: mL/min/1.73m2 CKD-EP I Creatinine Equation (2020) Result Comment: mL/m in/1.73m2 CKD-EPI Creatinine Equation (2020) Performed By: #### L 500.4050, L501.0900 #### [facility] [address] [place], [address] Hematocrit Auto (Bld) [Volum e fraction]Ordered By: Yudith Montero on 02-16-2025 Hematocrit (Bld) [Volume fraction] 32.2 % Low 37-47 [facility] Hemoglobin measurementOrdere d By: Yudith Montero on 02-16-2025 Hemoglobin (Bld) [Mass/Vol] 10.6 g/dL Low 12.0-15.0 [facility] Immature granulocytes/100 WB C Auto (Bld)Ordered By: Yudith Montero on 02-16-2025 Immature granulocytes/100 WBC (Bld) 1.600 % High 0.0-0.9 [facility] Comment on above: IG% - Immature Granu locytes (promyelocytes, myelocytes and metamyelocytes) > 1% indicates that a LEFT SHIFT is Present. Laboratory - Chemistry and C hemistry - challengeOrdered By: Yudith Montero on 02-16-2025 Glucose Ql (U) Negative [facility] - UrinalysisOrder ed By: Yudith Montero on 02-16-2025 Protein Ql (U) Negative [facility] MCV (mean corpuscular volume ) determinationOrdered By: Yudith Montero on 02-16-2025 MCV (RBC) [Entitic vol] 86.6 fL 81-99 [facility] Mean corpuscular hemoglobin (MCH) determinationOrdered By: Yudith Montero on 02-16-2025 MCH (RBC) [Entitic mass] 28.5 pg 27.0-32.0 [facility] Mean corpuscular hemoglobin concentration (MCHC) determinationOrdered By: Yudith Montero on 02-16-2025 MCHC (RBC) [Mass/Vol] 32.9 g/dL 32-36 [facility] Mean platelet volume determi nationOrdered By: Yudith Montero on 02-16-2025 Platelet mean volume (Bld) [Entitic vol] 10.2 fL 6.2-12.0 [facility] Monocyte percentageOrdered B y: Yudith Montero on 02-16-2025 Monocytes/100 WBC (Bld) 5.0 % 0-10 [facility] Neutrophil percentageOrdered By: Yudith Montero on 02-16-2025 Neutrophils/100 WBC (Bld) 77.5 % High 47-70 [facility] Nucleated red blood cell per centageOrdered By: Yudith Montero on 02-16-2025 Nucleated RBC/100 WBC (Bld) [Ratio] 0 % 0-5 [facility] Strategy Consultant Office Visit Reporton 02-16-2025 Strategy Consultant Office Visit Report [facility] [address], [address] [place] [address] OFFICE VISIT Date of Service: 02/16/25 MR#: [id number] Acct: [id number] Name: LEONOR HAGER Rep #: [id number] : 2000 Provider: Dr. 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 - (more content not included)... Normal [facility] Platelet countOrdered By: Leonard Montero on 02-16-2025 Platelets (Bld) [#/Vol] 367 10*3/uL 150-450 [facility] Potassium measurement (mass/ volume)Ordered By: Yudith Montero on 02-16-2025 Potassium (Unsp spec) [Mass/Vol] 3.6 mmol/L 3.3-5.1 [facility] Protein+Creatinine Ratio,Uri neon 02-16-2025 PROT:CRE RATIO 209 mg/g CRE High 0-200 [facility] Comment on above: Performed By: #### L 500.4050, L501.0900 #### [facility] [place], [address] Protein (U) [Mass/Vol] 25.5 mg/dL High 0.0-12.0 [facility] Comment on above: Performed By: #### L 500.4050, L501.0900 #### [facility] [address] [place], [address] UR CREAT 122.00 mg/dL Normal 28.00-217.00 [facility] Comment on above: Performed By: #### L 500.4050, L501.0900 #### [facility] [address] [place], [address] RBC Auto (Bld) [#/Vol]Ordere d By: Yudith Montero on 02-16-2025 RBC (Bld) [#/Vol] 3.72 10*6/uL Low 4.2-5.4 [facility] Random urine creatinine mariza urement (mass/volume)Ordered By: Yudith Montero on 02-16-2025 Creatinine Unsp time (U) [Mass/Vol] 122.00 mg/dL 28.00-217.00 [facility] Serum creatinine measurement (mass/volume)Ordered By: Yudith Montero on 02-16-2025 Creatinine [Mass/Vol] 0.52 mg/dL Low 0.70-1.20 [facility] Comment on above: Performed By: #### L 500.4050, L501.0900 #### [facility] [address] [place], [address] Serum globulin measurementOr dered By: Yudith Montero on 02-16-2025 Globulin (S) [Mass/Vol] 3.1 g/dL Normal 2.2-4.2 [facility] Comment on above: Performed By: #### L 500.4050, L501.0900 #### [facility] [address] [place], [address] Serum glucose measurement (m ass/volume)Ordered By: Yudith Montero on 02-16-2025 Glucose [Mass/Vol] 79 mg/dL Normal 70-99 [facility] Comment on above: Performed By: #### L 500.4050, L501.0900 #### [facility] [address] [place], [address] Serum or plasma alanine villaseñor otransferase (ALT) measurementOrdered By: Yudith Montero on 02-16-2025 ALT [Catalytic activity/Vol] 8 U/L Normal <=34 [facility] Comment on above: Performed By: #### L 500.4050, L501.0900 #### [facility] [address] [place], [address] Serum or plasma albumin mariza urement (mass/volume)Ordered By: Yudith Montero on 02-16-2025 Albumin [Mass/Vol] 3.7 g/dL Normal 3.5-5.0 [facility] Comment on above: Performed By: #### L 500.4050, L501.0900 #### [facility] [address] [place], [address] Serum or plasma albumin/glob ulin mass ratioOrdered By: Yudith Montero on 02-16-2025 Albumin/Globulin [Mass ratio] 1.2 {ratio} Normal 0.9-2.4 [facility] Comment on above: Performed By: #### L 500.4050, L501.0900 #### [facility] [address] [place], [address] Serum or plasma alkaline vicky sphatase measurementOrdered By: Yudith Mnotero on 02-16-2025 ALP [Catalytic activity/Vol] 136 U/L High 35-104 [facility] Serum or plasma calcium mariza urement (mass/volume)Ordered By: Yudith Montero on 02-16-2025 Calcium [Mass/Vol] 9.0 mg/dL Normal 7.6-11.0 [facility] Comment on above: Performed By: #### L 500.4050, L501.0900 #### [facility] [address] [place], [address] Serum or plasma urea nitroge n measurement (mass/volume)Ordered By: Yudith Montero on 02-16-2025 Urea nitrogen [Mass/Vol] 8 mg/dL Normal 4-19 [facility] Comment on above: Performed By: #### L 500.4050, L501.0900 #### [facility] [address] [place], [address] Sodium levelOrdered By: Rossy Montero on 02-16-2025 Sodium [Moles/Vol] 136 mmol/L Normal 133-145 [facility] Comment on above: Performed By: #### L 500.4050, L501.0900 #### [facility] [address] [place], [address] Total proteinOrdered By: Jane Montero on 02-16-2025 Protein [Mass/Vol] 6.8 g/dL 5.9-8.4 [facility] Urine protein measurement (m ass/volume)Ordered By: Yudith Montero on 02-16-2025 Protein (U) [Mass/Vol] 25.5 mg/dL High 0.0-12.0 [facility] Urine protein/creatinine mas s ratioOrdered By: Yudith Montero on 02-16-2025 Protein/Creatinine (U) [Mass ratio] 209 mg/g CRE High 0-200 [facility] White blood cell (WBC) count Ordered By: Yudith Montero on 02-16-2025 WBC (Bld) [#/Vol] 11.2 10*3/uL High 4.4-11.0 [facility] Bilirubin Test strip Ql (U)O rdered By: Mally Maldonado on 02-05-2025 Bilirubin Ql (U) Negative Negative [facility] Fibronectinon 02-06-20 25 fFIBRONECTIN Negative Normal [facility] Comment on above: Performed By: #### L 500.4050, L501.0900 #### [facility] [address] [place], [address] fibronectinOrdered By: Mally Maldonado on 02-05-2025 Fibronectin. (Vag fld) [Mass/Vol] Negative [facility] Ketones Test strip Ql (U)Ord ered By: Mally Maldonado on 02-05-2025 Ketones Ql (U) 5 mg/dl High Negative [facility] Microscopic analysis of urin e for red blood cells (RBC)Ordered By: Mally Maldonado on 02-05-2025 Microscopic analysis of urine for red blood cells (RBC) 0 SEEN /hpf 0-5 [facility] Mucus LM Ql (Urine sed)Order ed By: Mally Maldonado on 02-05-2025 Mucus Ql (Urine sed) 0 SEEN /hpf [facility] Nitrite Test strip Ql (U)Ord ered By: Mally Maldonado on 02-05-2025 Nitrite Ql (U) Negative Negative [facility] OB Triage Physician Noteon 1 OB Triage Physician Note [facility] Medical Records Department [address] [place] [address] OB Triage Physician Note 02/05/25 1357 MR#: [id number] Acct: [id number] Name: LEONOR HAGER Rep #: [id number] : 2000 24 From: Yudith Harper DO PCP: Care Physician,No Primary Status:REG CLI Y Location: [place] [address]-1 HPI - General HPI Narrative LEONOR HAGER, is a 24 y/o @ 31 weeks 4 days who presents to [facility] to rule out labor. 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 -???-???-???-???- (more content not included)... Normal [facility] Protein Test strip Ql (U)Ord ered By: Mally Maldonado on 02-05-2025 Protein Ql (U) 15 mg/dl High Negative [facility] Squamous epithelial cells de tection in urine sediment by light microscopyOrdered By: Mally Maldonado on 02-05-2025 Epithelial cells.squamous LM Ql (Urine sed) 5-10 SEEN /hpf 5-10 [facility] Urinalysis, Completeon 02-05 BACTERIA RARE Normal None Seen [facility] Comment on above: Order Comment: CLEAN CATCH Performed By: #### L 3890.6006, L100.0100, L501.0250, L509.8002 #### [facility] [address] [place], [address] EPI,SQUAMOUS 5-10 SEEN Normal 5-10 [facility] Comment on above: Order Comment: CLEAN CATCH Performed By: #### L 3890.6006, L100.0100, L501.0250, L509.8002 #### [facility] [address] [place], [address] WBC 0-5 SEEN Normal 0-5 [facility] Comment on above: Order Comment: CLEAN CATCH Performed By: #### L 3890.6006, L100.0100, L501.0250, L509.8002 #### [facility] [address] [place], [address] Mucus Ql (Urine sed) 0 SEEN Normal [facility] Comment on above: Order Comment: CLEAN CATCH Performed By: #### L 3890.6006, L100.0100, L501.0250, L509.8002 #### [facility] [address] [place], [address] RBC 0 SEEN Normal 0-5 [facility] Comment on above: Order Comment: CLEAN CATCH Performed By: #### L 3890.6006, L100.0100, L501.0250, L509.8002 #### [facility] [address] [place], [address] Urine clarityOrdered By: Duy Maldonado on 02-05-2025 Clarity (U) Clear Clear [facility] Urine color determinationOrd ered By: Mally Maldonado on 02-05-2025 Color (U) Yellow Yellow [facility] Urine glucose detectionOrder ed By: Mally Maldonado on 02-05-2025 Glucose Ql (U) Normal mg/dl Normal [facility] Urine leukocyte esterase det ection by dipstickOrdered By: Mally Maldonado on 02-05-2025 Leukocyte esterase Test strip Ql (U) 100 /ul High Negative [facility] Urine pHOrdered By: Mally saxena on 02-05-2025 pH (U) 6.5 [pH] 5.0 - 8.0 [facility] Urine sediment bacteria coun t by microscopy (number/high power field)Ordered By: Mally Maldonado on 02-05-2025 Bacteria LM.HPF (Urine sed) [#/Area] RARE /hpf None Seen [facility] Urine specific gravity measu rementOrdered By: Mally Maldonado on 02-05-2025 Specific gravity (U) [Rel density] 1.015 1.002-1.030 [facility] Urine urobilinogen measureme ntOrdered By: Mally Maldonado on 02-05-2025 Urobilinogen Ql (U) Normal mg/dl Normal [facility] White blood cell countOrdere d By: Mally Maldonado on 02-05-2025 White blood cell count 0-5 SEEN /hpf 0-5 [facility] - Chemistry and C hemistry - challengeOrdered By: Catie Krishnan on 02-02-2025 Glucose Ql (U) Negative [facility] - UrinalysisOrder ed By: Catie Krishnan on 02-02-2025 Protein Ql (U) Negative [facility] Strategy Consultant Office Visit Reporton 02-02-2025 Strategy Consultant Office Visit Report [facility] [address], [address] [place] [address] OFFICE VISIT Date of Service: 02/02/25 MR#: [id number] Acct: [id number] Name: LEONOR HAGER Rep #: [id number] : 2000 Provider: Dr. 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 -???-? (more content not included)... Normal [facility] Strategy Consultant Office Visit Reporton 01-27-2025 Strategy Consultant Office Visit Report [facility] [address], [address] [place] [address] OFFICE VISIT Date of Service: 01/27/25 MR#: [id number] Acct: [id number] Name: ELONOR HAGER Rep #: [id number] : 2000 Provider: Dr. 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 / (more content not included)... Normal [facility] AST(SGOT)on 01-21-2025 AST [Catalytic activity/Vol] 13 U/L Normal <=31 [facility] Comment on above: Performed By: #### L 3890.6006, L100.0100, L501.0250, L509.8002 #### [facility] [address] [place], [place], [id number] Alanine Aminotransferas (SGP T)on 01-21-2025 ALT [Catalytic activity/Vol] 9 U/L Normal <=34 [facility] Comment on above: Performed By: #### L 3890.6006, L100.0100, L501.0250, L509.8002 #### [facility] [address] [place], [place], [address] CBC-Complete Blood Cnt No Di ffon 01-21-2025 Erythrocyte distribution width (RBC) [Ratio] 12.6 % Normal 11.6-14.6 [facility] Comment on above: Performed By: #### L 3890.6006, L100.0100, L501.0250, L509.8002 #### [facility] [address] [place], [address] Hematocrit (Bld) [Volume fraction] 30.1 % Low 37-47 [facility] Comment on above: Performed By: #### L 3890.6006, L100.0100, L501.0250, L509.8002 #### [facility] [address] [place], [address] Hemoglobin (Bld) [Mass/Vol] 10.5 g/dL Low 12.0-15.0 [facility] Comment on above: Performed By: #### L 3890.6006, L100.0100, L501.0250, L509.8002 #### [facility] [address] [place], [address] MCH (RBC) [Entitic mass] 29.4 pg Normal 27.0-32.0 [facility] Comment on above: Performed By: #### L 3890.6006, L100.0100, L501.0250, L509.8002 #### [facility] [address] [place], [address] MCHC (RBC) [Mass/Vol] 34.9 g/dL Normal 32-36 [facility] Comment on above: Performed By: #### L 3890.6006, L100.0100, L501.0250, L509.8002 #### [facility] [address] [place], [address] MCV (RBC) [Entitic vol] 84.3 fL Normal 81-99 [facility] Comment on above: Performed By: #### L 3890.6006, L100.0100, L501.0250, L509.8002 #### [facility] [address] [place], [address] Platelet mean volume (Bld) [Entitic vol] 9.6 fL Normal 6.2-12.0 [facility] Comment on above: Performed By: #### L 3890.6006, L100.0100, L501.0250, L509.8002 #### [facility] [address] [place], [address] Platelets (Bld) [#/Vol] 365 10*3/uL Normal 150-450 [facility] Comment on above: Performed By: #### L 3890.6006, L100.0100, L501.0250, L509.8002 #### [facility] [address] [place], [address] RBC (Bld) [#/Vol] 3.57 10*6/uL Low 4.2-5.4 [facility] Comment on above: Performed By: #### L 3890.6006, L100.0100, L501.0250, L509.8002 #### [facility] [address] [place], [address] RDW SD 37.9 fl Normal 35.1-43.9 [facility] Comment on above: Performed By: #### L 3890.6006, L100.0100, L501.0250, L509.8002 #### [facility] [address] [place], [address] WBC (Bld) [#/Vol] 13.7 10*3/uL High 4.4-11.0 [facility] Comment on above: Performed By: #### L 3890.6006, L100.0100, L501.0250, L509.8002 #### [facility] [address] [place], [address] Erythrocyte distribution wid th ratioOrdered By: Mally Maldonado on 01-21-2025 Erythrocyte distribution width (RBC) [Ratio] 12.6 % 11.6-14.6 [facility] Erythrocyte distribution wid th standard deviationOrdered By: Mally Maldonado on 01-21-2025 Erythrocyte distribution width (RBC) [Ratio] 37.9 fl 35.1-43.9 [facility] Glomerular filtration rate ( GFR) estimation/1.73 sq m using serum, plasma, or whole bOrdered By: Mally Maldonado on 01-21-2025 GFR/1.73 sq M.predicted among non-blacks MDRD (S/P/Bld) [Vol rate/Area] 128 mL/min/{1.73_m2} >60 [facility] Comment on above: mL/min/1.73m2 CKD-EP I Creatinine Equation (2020) Hematocrit Auto (Bld) [Volum e fraction]Ordered By: Mally Maldonado on 01-21-2025 Hematocrit (Bld) [Volume fraction] 30.1 % Low 37-47 [facility] Hemoglobin measurementOrdere d By: Mally Maldonado on 01-21-2025 Hemoglobin (Bld) [Mass/Vol] 10.5 g/dL Low 12.0-15.0 [facility] Laboratory - Chemistry and C hemistry - challengeOrdered By: Mally Maldonado on 01-21-2025 AST [Catalytic activity/Vol] 13 U/L <32 [facility] MCV (mean corpuscular volume ) determinationOrdered By: Mally Maldonado on 01-21-2025 MCV (RBC) [Entitic vol] 84.3 fL 81-99 [facility] Mean corpuscular hemoglobin (MCH) determinationOrdered By: Mally Maldonado on 01-21-2025 MCH (RBC) [Entitic mass] 29.4 pg 27.0-32.0 [facility] Mean corpuscular hemoglobin concentration (MCHC) determinationOrdered By: Mally Maldonado on 01-21-2025 MCHC (RBC) [Mass/Vol] 34.9 g/dL 32-36 [facility] Mean platelet volume determi nationOrdered By: Mally Maldonado on 01-21-2025 Platelet mean volume (Bld) [Entitic vol] 9.6 fL 6.2-12.0 [facility] OB Triage Progress Noteon OB Triage Progress Note [facility] Medical Records Department [address] [place] [address] OB Triage Progress Note 01/21/25 1526 MR#: [id number] Acct: [id number] Name: LEONOR HAGER Rep #: [id number] : 2000 24 From: Mally Maldonado CNM PCP: Care Physician,No Primary Status:REG CLI Y DOS: Location: [place] [address] Progress Notes Date of Service: 01/21/25 Progress Note: Patient presents for triage evaluation secondary to elevated BP at home at 28 weeks FHT: 140 Moderate variability reactive no decelerations category I tracing [place]: no Contractions Assessment and plan: normal Pre [...] Multi Select Codes Urinary/Genital Urinary/Genital CPT Codes: 10414-33 non-stress test Interp Assessment Plan (1) Epigastric [...] Maldonado; No Primary Care Physician Signed Normal [facility] Platelet countOrdered By: Lei Maldonado on 01-21-2025 Platelets (Bld) [#/Vol] 365 10*3/uL 150-450 [facility] Protein+Creatinine Ratio,Uri neon 01-21-2025 PROT:CRE RATIO 184 mg/g CRE Normal 0-200 [facility] Comment on above: Performed By: #### L 3890.6006, L100.0100, L501.0250, L509.8002 #### [facility] [address] [place], [address] Protein (U) [Mass/Vol] 16.3 mg/dL High 0.0-12.0 [facility] Comment on above: Performed By: #### L 3890.6006, L100.0100, L501.0250, L509.8002 #### [facility] [address] [place], [address] UR CREAT 88.50 mg/dL Normal 28.00-217.00 [facility] Comment on above: Performed By: #### L 3890.6006, L100.0100, L501.0250, L509.8002 #### [facility] [address] [place], [address] RBC Auto (Bld) [#/Vol]Ordere d By: Mally Maldonado on 01-21-2025 RBC (Bld) [#/Vol] 3.57 10*6/uL Low 4.2-5.4 [facility] Random urine creatinine mariza urement (mass/volume)Ordered By: Mally Maldonado on 01-21-2025 Creatinine Unsp time (U) [Mass/Vol] 88.50 mg/dL 28.00-217.00 [facility] Serum Creatinine AND GFRon 0 01-21-2025 Creatinine [Mass/Vol] 0.61 mg/dL Low 0.70-1.20 [facility] Comment on above: Performed By: #### L 3890.6006, L100.0100, L501.0250, L509.8002 #### [facility] [address] [place], [address] ECRCL 133.13 ml/min Normal 50-250 [facility] Comment on above: Performed By: #### L 3890.6006, L100.0100, L501.0250, L509.8002 #### [facility] [address] [place], [address] GFR/1.73 sq M.predicted among non-blacks MDRD (S/P/Bld) [Vol rate/Area] 128 mL/min/{1.73_m2} Normal >60 [facility] Comment on above: Result Comment: mL/m in/1.73m2 CKD-EPI Creatinine Equation (2020) Performed By: #### L 3890.6006, L100.0100, L501.0250, L509.8002 #### [facility] [address] [place], [place], [address] Serum creatinine measurement (mass/volume)Ordered By: Mally Maldonado on 01-21-2025 Creatinine [Mass/Vol] 0.61 mg/dL Low 0.70-1.20 [facility] Serum or plasma alanine villaseñor otransferase (ALT) measurementOrdered By: Mally Maldonado on 01-21-2025 ALT [Catalytic activity/Vol] 9 U/L <35 [facility] Serum or plasma uric acid me asurement (mass/volume)Ordered By: Mally Maldonado on 01-21-2025 Urate [Mass/Vol] 3.5 mg/dL 2.6-6.0 [facility] Comment on above: The drugs N-Acetylcy steine and Metamizole may falsely depress this assay. Uric Acidon 01-21-2025 URIC 3.5 mg/dL Normal 2.6-6.0 [facility] Comment on above: Result Comment: The drugs N-Acetylcysteine and Metamizole may falsely depress this assay. Performed By: #### L 3890.6006, L100.0100, L501.0250, L509.8002 #### [facility] [address] [place], [place], [address] Urine protein measurement (m ass/volume)Ordered By: Mally Maldonado on 01-21-2025 Protein (U) [Mass/Vol] 16.3 mg/dL High 0.0-12.0 [facility] Urine protein/creatinine mas s ratioOrdered By: Mally Maldonado on 01-21-2025 Protein/Creatinine (U) [Mass ratio] 184 mg/g CRE 0-200 [facility] White blood cell (WBC) count Ordered By: Mally Maldonado on 01-21-2025 WBC (Bld) [#/Vol] 13.7 10*3/uL High 4.4-11.0 [facility] - Chemistry and C hemistry - challengeOrdered By: Catie Krishnan on 01-17-2025 Glucose Ql (U) Negative [facility] - UrinalysisOrder ed By: Catie Krishnan on 01-17-2025 Protein Ql (U) Negative [facility] Strategy Consultant Office Visit Reporton 01-17-2025 Strategy Consultant Office Visit Report [facility] [address], [address] [place] [address] OFFICE VISIT Date of Service: 01/17/25 MR#: [id number] Acct: [id number] Name: LEONOR HAGER Rep #: [id number] : 2000 Provider: Dr. 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 Normal [facility] Urine Cultureon 01-14-2025 URC Mixed Gram Positive Organisms [place] Count 11,000-25,000 MIXC Mixed contaminants. Submit a new specimen if indicated. Normal [facility] Comment on above: Performed By: #### M 100.0085 ####[facility] [address] [place], [address] Bacteria identified Cx Nom ( U)Ordered By: Aj Hollingsworth on 01-13-2025 Interpretation and review of laboratory results Normal [facility] CBC (HEMOGRAM)on 01-13-2025 Erythrocyte distribution width (RBC) [Ratio] 12.9 % Normal 11.5-15.0 [facility]25eight [facility] Comment on above: Performed By: #### L AB294 ####Apartment Community Manager: QUEENIE CASTRO ([phone])[facility])[address] [place] [address] Hematocrit (Bld) [Volume fraction] 31.3 % Low 35.0-47.0 [facility] Comment on above: Performed By: #### L AB294 ####Apartment Community Manager: QUEENIE CASTRO ([phone])[facility])[address] [place] [address] Hemoglobin (Bld) [Mass/Vol] 10.5 g/dL Low 11.7-16.0 [facility] Comment on above: Performed By: #### L AB294 ####Apartment Community Manager: QUEENIE CASTRO ([phone])[facility])[address] [place] [address] MCH (RBC) [Entitic mass] 29.6 pg Normal 26.0-34.0 [facility] Comment on above: Performed By: #### L AB294 ####Apartment Community Manager: QUEENIE CASTRO ([phone])[facility])[address] [place] [address] MCHC 33.5 % Normal 30.5-36.0 [facility] Comment on above: Performed By: #### L AB294 ####Apartment Community Manager: QUEENIE CASTRO ([phone])[facility])[address] [place] [address] MCV (RBC) [Entitic vol] 88.2 fL Normal 77.0-99.0 [facility] Comment on above: Performed By: #### L AB294 ####Apartment Community Manager: QUEENIE CASTRO ([phone])[facility])[address] [place] [address] Platelet mean volume (Bld) [Entitic vol] 9.9 fL Normal 9.0-12.7 [facility] Comment on above: Performed By: #### L AB294 ####Apartment Community Manager: QUEENIE CASTRO ([phone])[facility])[address] [place] [address] Platelets (Bld) [#/Vol] 347 10*3/uL Normal 140-440 [facility] Comment on above: Performed By: #### L AB294 ####Apartment Community Manager: QUEENIE CASTRO ([phone])[facility])[address] [place] [address] RBC (Bld) [#/Vol] 3.55 10*6/uL Low 3.80-5.20 [facility] Comment on above: Performed By: #### L AB294 ####Apartment Community Manager: QUEENIE CASTRO ([phone])[address] WBC (Bld) [#/Vol] 15.3 10*3/uL High 3.6-10.7 [facility] Comment on above: Performed By: #### L AB294 ####Apartment Community Manager: QUEENIE CASTRO ([phone])[facility])[address] [place] [address] CBC panel Auto (Bld)on 01-13 Erythrocyte distribution width (RBC) [Ratio] 12.9 % 11.5 - 15.0 % [facility] Hematocrit (Bld) [Volume fraction] 31.3 % Low 35.0 - 47.0 % [facility] Hemoglobin (Bld) [Mass/Vol] 10.5 g/dL Low 11.7 - 16.0 g/dL [facility] Interpretation and review of laboratory results Abnormal [facility] MCH (RBC) [Entitic mass] 29.6 pg 26.0 - 34.0 pg [facility] MCHC (RBC) [Mass/Vol] 33.5 % 30.5 - 36.0 % [facility] MCV (RBC) [Entitic vol] 88.2 fL 77.0 - 99.0 fL [facility] Platelet mean volume (Bld) [Entitic vol] 9.9 fL 9.0 - 12.7 fL [facility] Platelets (Bld) [#/Vol] 347 10*3/uL 140 - 440 10*3/uL [facility] RBC (Bld) [#/Vol] 3.55 10*6/uL Low 3.80 - 5.2 0 10*6/uL [facility] WBC (Bld) [#/Vol] 15.3 10*3/uL High 3.6 - 10.7 10*3/uL [facility] COMPREHENSIVE METABOLIC PANE Jeffrey 01-13-2025 Albumin [Mass/Vol] 2.9 g/dL Low 3.5-5.0 [facility] Comment on above: Performed By: #### L AB17 ####Apartment Community Manager: QUEENIE CASTRO ([phone])[facility] ([facility])[address] [place] [address] ALP [Catalytic activity/Vol] 94 U/L Normal 40-150 [facility] Comment on above: Performed By: #### L AB17 ####Apartment Community Manager: QUEENIE CASTRO ([phone])[facility] ([facility])[address] [place] [address] ALT [Catalytic activity/Vol] 8 U/L Normal <30 [facility] Comment on above: Performed By: #### L AB17 ####Apartment Community Manager: QUEENIE CASTRO ([phone])[facility] ([facility])[address] [place] [address] Anion gap [Moles/Vol] 5 mmol/L Normal 3-13 [facility] Comment on above: Performed By: #### L AB17 ####Apartment Community Manager: QUEENIE CASTRO ([phone])[facility])[address] [place] [address] AST [Catalytic activity/Vol] 16 U/L Normal <34 [facility] Comment on above: Performed By: #### L AB17 ####Apartment Community Manager: QUEENIE CASTRO ([phone])[facility])[address] [place] [address] Bilirubin [Mass/Vol] 0.8 mg/dL Normal <1.2 [facility] Comment on above: Performed By: #### L AB17 ####Apartment Community Manager: QUEENIE [phone])[facility])[address] [place] [address] Calcium [Mass/Vol] 8.7 mg/dL Normal 8.4-10.2 [facility] Comment on above: Performed By: #### L AB17 ####Apartment Community Manager: QUEENIE CASTRO ([phone])[facility] [place] [address] Chloride [Moles/Vol] 108 mmol/L High 98-107 [facility] Comment on above: Performed By: #### L AB17 ####Apartment Community Manager: QUEENIE CASTRO ([phone])[facility] ([facility])[address] [place] [address] CO2 [Moles/Vol] 20 mmol/L Low 22-29 [facility] Comment on above: Performed By: #### L AB17 ####Apartment Community Manager: QUEENIE CASTRO ([phone])[facility] ([facility])[address] [place] [address] Creatinine [Mass/Vol] 0.54 mg/dL Low 0.57-1.11 [facility] Comment on above: Performed By: #### L AB17 ####Apartment Community Manager: QUEENIE CASTRO ([phone])[facility])[address] [place] [address] GLOMERULAR FILTRATION RATE ML/MIN/1.73 SQ M.PREDICTED >90.0 Normal >60.0 [facility] Comment on above: Result Comment: Calc ulation based on the Chronic Kidney Disease Epidemiology Collaboration (CKD-EPI) equation refit without adjustment for race Performed By: #### L AB17 ####Apartment Community Manager: QUEENIE CASTRO ([phone])[facility] ([facility])[address] [place] [address] [place] Glucose [Mass/Vol] 96 mg/dL Normal 74-100 [facility] Comment on above: Performed By: #### L AB17 ####Apartment Community Manager: QUEENIE CASTRO ([phone])[facility] ([facility])[address] [place] [address] [place] Potassium [Moles/Vol] 4.1 mmol/L Normal 3.5-5.1 [facility] Comment on above: Result Comment: [facility] potassium values may be up to 0.5 mmol/L lower than serum values. Performed By: #### L AB17 ####Apartment Community Manager: QUEENIE CASTRO ([phone])[facility] ([facility])[address] [place] [address] Protein [Mass/Vol] 6.8 g/dL Normal 6.4-8.3 [facility] Comment on above: Performed By: #### L AB17 ####Apartment Community Manager: QUEENIE CASTRO ([phone])[facility])[address] [place] [address] Sodium [Moles/Vol] 133 mmol/L Low 136-145 [facility] Comment on above: Performed By: #### L AB17 ####Apartment Community Manager: QUEENIE CASTRO ([phone])[facility])[address] [place] [address] Urea nitrogen [Mass/Vol] 7 mg/dL Low 8-21 [facility] Comment on above: Performed By: #### L AB17 ####Apartment Community Manager: QUEENIE CASTRO ([phone])[facility])[address] [place] [address] Comprehensive metabolic 1998 panelon 01-13-2025 Albumin [Mass/Vol] 2.9 g/dL Low 3.5 - 5.0 g/dL [facility] ALP [Catalytic activity/Vol] 94 U/L 40 - 150 U/L [facility] ALT [Catalytic activity/Vol] 8 U/L NINF - 30 U/L [facility] Anion gap [Moles/Vol] 5 mmol/L 3 - 13 mmol/L [facility] AST [Catalytic activity/Vol] 16 U/L NINF - 34 U/L [facility] Bilirubin [Mass/Vol] 0.8 mg/dL NINF - 1.2 mg/dL [facility] Calcium [Mass/Vol] 8.7 mg/dL 8.4 - 10. 2 mg/dL [facility] Chloride [Moles/Vol] 108 mmol/L High 98 - 10 7 mmol/L [facility] CO2 [Moles/Vol] 20 mmol/L Low 22 - 29 mmol/L [facility] Creatinine [Mass/Vol] 0.54 mg/dL Low 0.57 - 1.11 mg/dL [facility] GFR/1.73 sq M.predicted (S/P/Bld) [Vol rate/Area] - PINF [facility] Comment on above: Calculation based on the Chronic Kidney Disease Epidemiology Collaboration (CKD-EPI) equation refit without adjustment for race Glucose [Mass/Vol] 96 mg/dL 74 - 100 mg/dL [facility] Interpretation and review of laboratory results Abnormal [facility] Potassium [Moles/Vol] 4.1 mmol/L 3.5 - 5.1 mmol/L [facility] Comment on above: Plasma potassium ashly ues may be up to 0.5 mmol/L lower than serum values. Protein [Mass/Vol] 6.8 g/dL 6.4 - 8.3 g/dL [facility] Sodium [Moles/Vol] 133 mmol/L Low 136 - 145 mmol/L [facility] Urea nitrogen [Mass/Vol] 7 mg/dL Low 8 - 21 mg/d L [facility] Laboratory - Chemistry and C hemistry - challengeon 01-13-2025 Glucose [Mass/Vol] 120 mg/dL High 70 - 100 mg/dL [facility] Glucose [Mass/Vol] 150 mg/dL High 70 - 100 mg/dL [facility] - Microbiology an d Antimicrobial susceptibilityOrdered By: Aj Hollingsworth on 01-13-2025 Bacteria identified Cx Nom (U) Normal urogenital dano present [facility] No Panel Informationon 01-13 Interpretation and review of laboratory results Abnormal [facility] Performed by: [address] [address] CLIA ID: [id number] [facility] Interpretation and review of laboratory results Abnormal [facility] Performed by: [facility], [address] [place] [address] CLIA ID: [id number] [facility] No Panel InformationOrdered By: Annette Gamboa on 01-13-2025 Interpretation and review of laboratory results Normal [facility] Toxoplasma IgM NINF [facility] Interpretive Information: Results of 1.1 Tiff or [...] reported does not correspond to antibody concentrations. [facility] Nursing Noteon 01-13-2025 Nursing Note Discharge instructions given to the patient at this time. labor precautions reviewed. Patient will follow up with her own physician in [place]. IV removed. Patient discharged to home ambulatory, accompanied by . Normal [facility] Progress Noteon 01-13-2025 Progress Note Nutrition rescreen completed. Patient assigned a level 1. Normal [facility] Progress Note Attestation signed by Mona Hughes DO at 01/13/2025 8:33 PM Hospital Care (Present): I was present with the [facility] resident during my history and exam. [...] Threatened Labor - Patient was transport from [place] due to blood pressure concerns while experiencing [...] to position, SEEMA wnl. 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 - CMV, Toxo [...] 10 mL IntraVENous PRN Kenton Booker DO [id number] 01-12-2025 [id number] Date: 01/12/2025 Name: Leonor Hager : 2000 [facility] Information [place] Patient Information Primary Caregiver: Self Accompanied by/Relationship: S/O;Family Marital Status: Support System: SO/Family Baptist/Cultural Factors: None Activities of Daily Living Communication: [...] place to sleep or slept in a longterm (including now)? No Transportation Needs Has the [...] Developmental Delay: N/A Children's Services: N/A Normal [facility] CBC W/Diff, Automatedon 12-27 Absolute Neut Normal 2.0-7.7 [facility] Comment on above: Result Comment: Canc elled via OM: Order cancelled - Patient discharged Performed By: #### L 100.0100 ####[facility] [address] [facility]. [place], [place], [address] HCT Normal 37-47 [facility] Comment on above: Result Comment: Canc elled via OM: Order cancelled - Patient discharged Performed By: #### L 100.0100 ####[facility] [address] [facility]. [place], [place], [address] HGB Normal 12.0-15.0 [facility] Comment on above: Result Comment: Canc elled via OM: Order cancelled - Patient discharged Performed By: #### L 100.0100 ####[facility] [address] [place], [address] MCH Normal 27.0-32.0 [facility] Comment on above: Result Comment: Canc elled via OM: Order cancelled - Patient discharged Performed By: #### L 100.0100 ####[facility] [address] [place], [address] MCHC Normal 32-36 [facility] Comment on above: Result Comment: Canc elled via OM: Order cancelled - Patient discharged Performed By: #### L 100.0100 ####[facility] [address] [place], [address] MCV Normal 81-99 [facility] Comment on above: Result Comment: Canc elled via OM: Order cancelled - Patient discharged Performed By: #### L 100.0100 ####[facility] [address] [place], [address] NEUT% Normal 47-70 [facility] Comment on above: Result Comment: Canc elled via OM: Order cancelled - Patient discharged Performed By: #### L 100.0100 ####[facility] [address] [place], [address] PLT Normal 150-450 [facility] Comment on above: Result Comment: Canc elled via OM: Order cancelled - Patient discharged Performed By: #### L 100.0100 ####[facility] [address] [place], [address] RBC Normal 4.2-5.4 [facility] Comment on above: Result Comment: Canc elled via OM: Order cancelled - Patient discharged Performed By: #### L 100.0100 ####[facility] [address] [place], [address] RDW CV Normal 11.6-14.6 [facility] Comment on above: Result Comment: Canc elled via OM: Order cancelled - Patient discharged Performed By: #### L 100.0100 ####[facility] [address] [place], [address] RDW SD Normal 35.1-43.9 [facility] Comment on above: Result Comment: Canc elled via OM: Order cancelled - Patient discharged Performed By: #### L 100.0100 ####[facility] [address] [place], [address] WBC Normal 4.4-11.0 [facility] Comment on above: Result Comment: Canc elled via OM: Order cancelled - Patient discharged Performed By: #### L 100.0100 ####[facility] [address] [place], [address] CMV AB PANEL, IGG AND IGM (B KR [facility])on 01-12-2025 [facility] CYTOMEGALOVIRUS ANTIBODY (IGG) 2.00 U/mL High <0.60 [facility] Comment on above: Result Comment: U/mL Interpretation <0.60 Negative 0.60 - 0.69 Equivocal > or = 0.70 Positive A positive result indicates that the patient has antibody to CMV. It does not differentiate between an active or past infection. Performed By: #### L AB501, [id number] ####[facility] (AMDBEAKER)[id number] [place], [place] [facility] CYTOMEGALOVIRUS ANTIBODY (IGM) <30.00 Normal <30.00 [facility] Comment on above: Result Comment: AU/mL [...] more weeks. Test Performed by Jesse Casillas, [employer] [facility], [address] [place], [place] Armando Choudhary M.D., Ph.D., Director of Laboratories , [place] [id number] Performed By: #### L AB501, [id number] ####[facility] (AMDBEAKER)[address] [place], [place] [facility] Comprehensive Metabolic Prof ilon 01-12-2025 ALB Normal 3.5-5.0 [facility] Comment on above: Result Comment: Canc elled via OM: Order cancelled - Patient discharged Performed By: #### L 500.4050 ####[facility] [address] [facility] [address] ALK PHOS Normal 35-104 [facility] Comment on above: Result Comment: Canc elled via OM: Order cancelled - Patient discharged Performed By: #### L 500.4050 ####[facility] [address] [place], [address] ALT Normal <=34 [facility] Comment on above: Result Comment: Canc elled via OM: Order cancelled - Patient discharged Performed By: #### L 500.4050 ####[facility] [address] [place], [address] AST Normal <=31 [facility] Comment on above: Result Comment: Canc elled via OM: Order cancelled - Patient discharged Performed By: #### L 500.4050 ####[facility] [address] [place], [address] BUN Normal 4-19 [facility] Comment on above: Result Comment: Canc elled via OM: Order cancelled - Patient discharged Performed By: #### L 500.4050 ####[facility] [address] [place], [address] BUN/CRE Normal 10-20 [facility] Comment on above: Result Comment: Canc elled via OM: Order cancelled - Patient discharged Performed By: #### L 500.4050 ####[facility] [address] [place], [address] Calcium Normal 7.6-11.0 [facility] Comment on above: Result Comment: Canc elled via OM: Order cancelled - Patient discharged Performed By: #### L 500.4050 ####[facility] [address] [place], [address] CL Normal 98-108 [facility] Comment on above: Result Comment: Canc elled via OM: Order cancelled - Patient discharged Performed By: #### L 500.4050 ####[facility] [address] [place], [address] CO2 Normal 21.0-32.0 [facility] Comment on above: Result Comment: Canc elled via OM: Order cancelled - Patient discharged Performed By: #### L 500.4050 ####[facility] [address] [place], [address] CREAT,SERUM Normal 0.70-1.20 [facility] Comment on above: Result Comment: Canc elled via OM: Order cancelled - Patient discharged Performed By: #### L 500.4050 ####[facility] [address] [place], [address] eGFR Normal >60 [facility] Comment on above: Result Comment: Canc elled via OM: Order cancelled - Patient discharged Performed By: #### L 500.4050 ####[facility] [address] [place], [address] GAP Normal 5-15 [facility] Comment on above: Result Comment: Canc elled via OM: Order cancelled - Patient discharged Performed By: #### L 500.4050 ####[facility] [address] [place], [address] GLU Normal 70-99 [facility] Comment on above: Result Comment: Canc elled via OM: Order cancelled - Patient discharged Performed By: #### L 500.4050 ####[facility] [address] [place], [address] Potassium Normal 3.3-5.1 [facility] Comment on above: Result Comment: Canc elled via OM: Order cancelled - Patient discharged Performed By: #### L 500.4050 ####[facility] [address] [place], [address] T BILI Normal 0.00-1.30 [facility] Comment on above: Result Comment: Canc elled via OM: Order cancelled - Patient discharged Performed By: #### L 500.4050 ####[facility] [address] [place], [address] T PROT Normal 5.9-8.4 [facility] Comment on above: Result Comment: Canc elled via OM: Order cancelled - Patient discharged Performed By: #### L 500.4050 ####[facility] [address] [place], [address] Comprehensive Metabolic Profil Normal 133-145 [facility] Comment on above: Result Comment: Canc elled via OM: Order cancelled - Patient discharged Performed By: #### L 500.4050 ####[facility] [address] [place], [address] Creatinine (U) [Mass/Vol]on 01-12-2025 Concentration is based on a daily urine output of 1.5 L. [facility] - Chemistry and C hemistry - challengeon 01-12-2025 Glucose [Mass/Vol] 161 mg/dL High 70 - 100 mg/dL [facility] Glucose [Mass/Vol] 112 mg/dL High 70 - 100 mg/dL [facility] Glucose [Mass/Vol] 130 mg/dL High 70 - 100 mg/dL [facility] Glucose [Mass/Vol] 116 mg/dL High 70 - 100 mg/dL [facility] Laboratory - UrinalysisOrder ed By: Olga Austin on 01-12-2025 Protein (U) [Mass/Vol] mg/dL NINF - 14 mg/dL [facility] MISCELLANEOUS SENDOUT TESTon 01-12-2025 RESULT See Comment Normal [facility] Comment on above: Result Comment: ROBLES Leon COMMENTS: Pre-E Test 2nd/3rd Trimester Test: Current Result and Flag: Reference Interval: sFlt-1 998 Not Estab. PlGF 136.7 Not Estab. sFlt-1/PlGF Ratio Result 7 0-39 Interpretation Result<40: This patient is at low risk for progression to preeclampsia with severe features within 2 weeks. Performed By: #### L AB000 ####[facility] [place] [id number] N. gonorrhoeae DNA ENRIQUE+probe Ql (Cervical mucus)on 01-12-2025 C. trachomatis DNA ENRIQUE+probe Ql (Unsp spec) Not detected Not Detected [facility] Interpretation and review of laboratory results Normal [facility] N. gonorrhoeae DNA ENRIQUE+probe Ql (Unsp spec) Not detected Not Detected [facility] Methodology: real-time PCR This test is intended [...] specimen should be collected if clinically indicated. [facility] No Panel Informationon 01-12 Interpretation and review of laboratory results Abnormal [facility] Performed by: [facility], [address] [place] [address], [facility] [address] CLIA ID: [id number] [facility] Interpretation and review of laboratory results Abnormal [facility] Performed by: [facility], [address] [place] [address], [facility] [address] CLIA ID: [id number] [facility] 1. Toussaint live intrauterine at 28w 1d. 2. The estimated weight is 1168 grams, which is at the 50%tile for this gestational age. The AC measures at the 22%tile. 3. Right lateral ventriculomegaly measuring 15mm, however imaging was suboptimal due to position. 4. The amniotic fluid index is 15.1cm, which is within normal limits. 4. BPP 12/03. RECOMMENDATIONS See inpatient chart. 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 If ventriculomegaly is confirmed, Treatment referral recommended. Follow up as clinically indicated and as previously scheduled. Ultrasound is not diagnostic for aneuploidy and will not detect all structural abnormalities, even if multiple exams are performed during a given . Normal ultrasound findings do not guarantee normal outcomes. [facility] OBSTETRICS REPORT (Signed Final 01/12/2025 12:01 pm) PATIENT INFO: ID #: [id number] : [birth year] (24 yrs)(F) Name: LEONOR HAGER Visit Date: 01/12/2025 10:21 am PERFORMED BY: Attending: Mona Hughes DO, FACOG Performed By: Elma Irby [facility] Referred By: KENTON BOOKER Location: [facility] IP Visit Type: Inpatient - Hospital SERVICE(S) PROVIDED: US >= 14 weeks [address] BPP w/out NST 687[address] INDICATIONS: Threatened Labor Chronic hypertension, third trimester O10.913 VITAL SIGNS: Weight (lb): 154 Height: 5'6 BMI: 24.85 EVALUATION: Num Of Fetuses: 1 [...] Signed Final Report 01/12/2025 12:01 pm [facility] Mona Hughes DO - 01/12/2025 OBSTETRICS REPORT (Signed Final 01/12/2025 12:01 pm) PATIENT INFO: ID #: [id number] : [birth year] (24 yrs)(F) Name: LEONOR HAGER Visit Date: 01/12/2025 10:21 am PERFORMED BY: Attending: Mona Hughes DO, FACOG Performed By: Elma Irby RDMS Referred By: KENTON BOOKER Location: [facility] IP Visit Type: Inpatient - Hospital SERVICE(S) PROVIDED: US >= 14 weeks [address] BPP w/out NST [address] INDICATIONS: Threatened Labor Chronic hypertension, third trimester O10.913 VITAL SIGNS: Weight (lb): 154 Height: 5'6 BMI: 24.85 EVALUATION: Num Of Fetuses: 1 [...] % 71 - 87 FL/AC: 22.7 % Est. FW: 1168 gm 2 lb 9 [...] BPP 8/8. RECOMMENDATIONS See inpatient chart. 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 If ventriculomegaly is confirmed, Treatment referral recommended. Follow up as clinically indicated and as previously scheduled. Ultrasound is not diagnostic for aneuploidy and will not detect all structural abnormalities, even if multiple exams are performed during a given . Normal ultrasound findings do not guarantee normal outcomes. [facility] [employer] [employer] Interpretation and review of laboratory results Abnormal [facility] [employer] Performed by: [address] [address] CLIA ID: [id number] [facility] [employer] Interpretation and review of laboratory results Abnormal [facility] [employer] Performed by: [address] [address] CLIA ID: [id number] [facility] Radiology Study observation (narrative) Sarath Ambrose alth Extra Tube Hold for add-ons. Sarath quiles Comment on above: Auto resulted. [employer] No Panel InformationOrdered By: Olga Austin on 01-12-2025 CREATININE, URINE 52.8 mg/dL 47.0 - 110 .0 mg/dL [facility] Interpretation and review of laboratory results Normal [facility] PROTEIN, URINE, RANDOMon CREATININE, URINE 52.8 mg/dL Normal 47.0-110.0 [facility] Comment on above: Performed By: #### L AB384, [id number] #### Apartment Community Manager: QUEENIE CASTRO ([phone]) [facility] ([facility]) [address] [place] [address] Result Comment: ROBLES Leon COMMENTS: Concentration is based on a daily urine output of 1.5 L. Performed By: #### L AB384, [id number] ####Apartment Community Manager: QUEENIE CASTRO ([phone])[facility] ([facility])[address] [place] [address] TOTAL PROTEIN, UR <7 Normal <14 [facility] Comment on above: Performed By: #### L AB384, [id number] #### Apartment Community Manager: QUEENIE CASTRO ([phone]) [facility] ([facility]) [address] [place] [address] Progress Noteon 01-12-2025 Progress Note Attestation signed by Mona Hughes DO at 01/12/2025 1:57 PM Hospital Care (Present): I was present with the [facility] resident during my history and exam. [...] QTC Interval 01/11/2025 458 ms Final P Fitzhugh 01/11/2025 60 degrees Final QRS Fitzhugh 01/11/2025 63 degrees Final T Wave Fitzhugh 01/11/2025 13 degrees Final UT Interval 01/11/2025 157 ms Final ABO Grouping [...] 100 mg/dL Final Transport form Dr. Rincon, [facility]. Had presented for her Glucola screen. [...] kg (154 lb) Height: 1.676 m (5' 6) 1.676 m (5' 6) Physical Exam: Gen: NAD HEENT: Normocephalic, Atraumatic, [...] magnesium infusion for benefit, and transferred to [facility] unit - No questions or concerns [...] of dise (more content not included)... Normal [facility] S. agalactiae DNA ENRIQUE+probe Ql (Unsp spec)on 01-12-2025 Group B Strep Screen Not detected Not Detected [facility] Interpretation and review of laboratory results Normal [facility] Methodology: real-time PCR [facility] TOXOPLASMA GONDII ANTIBODY, IGG (BKR QUEST)on 01-12-2025 [employer] TOXOPLASMA ANTIBODY (IGG) <7.20 Normal <7.20 [facility] Comment on above: Result Comment: IU/mL Interpretation <7.20 Negative 7.20 - 8.79 Equivocal >8.79 Positive Test Performed by [employer], [employer] [facility], [address] [place] [address] Armando Choudhary M.D., Ph.D., Director of Laboratories , CLIA [id number] Performed By: #### L AB501, [id number] ####[employer] ([facility])[address] [place] [address] [facility] TOXOPLASMA GONDII ANTIBODY, IGMon 01-12-2025 TOXOPLASMA IGM ANTIBODY <0.2 Normal <=0.8 [facility] Comment on above: Result Comment: ROBLES Leon [...] antibody concentrations. Performed By: #### L AB659 ####Apartment Community Manager: QUEENIE CASTRO ([phone])[facility] ([address] US BIOPHYSICAL PROFILE WO NON STRESS TESTINGon 01-12-2025 US BIOPHYSICAL PROFILE WO NON STRESS TESTING OBSTETRICS REPORT (Signed Final 01/12/2025 12:01 pm) PATIENT INFO: ID #: [id number] : [birth year] (24 yrs)(F) Name: LEONOR HAGER Visit Date: 01/12/2025 10:21 am PERFORMED BY: Attending: Mona Hughes DO, FACOG Performed By: Elma Irby RDMS Referred By: KENTON BOOKER Location: [facility] IP Visit Type: Inpatient - Hospital SERVICE(S) PROVIDED: US >= 14 weeks [address] BPP w/out NST [address] INDICATIONS: Threatened Labor Chronic hypertension, third trimester O10.913 VITAL SIGNS: Weight (lb): 154 Height: 5'6 BMI: 24.85 EVALUATION: Num Of Fetuses: 1 [...] BPP 12/03. RECOMMENDATIONS See inpatient chart. 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 If ventriculomegaly is confirmed, Treatment referral recommended. Follow up as clinically indicated and as previously scheduled. Ultrasound is not diagnostic for aneuploidy and will not detect all structural abnormalities, even if multiple exams are performed during a given . Normal ultrasound findings do not guarantee normal outcomes. Normal [facility] US OB 14+ WEEKS SINGLE FETUS MATERNAL EVAL TRANSABDOMINALon 01-12-2025 US OB 14+ WEEKS SINGLE FETUS MATERNAL EVAL TRANSABDOMINAL OBSTETRICS REPORT (Signed Final 01/12/2025 12:01 pm) PATIENT INFO: ID #: [id number] : [birth year] (24 yrs)(F) Name: LEONOR HAGER Visit Date: 01/12/2025 10:21 am PERFORMED BY: Attending: Mona Hughes DO, FACOG Performed By: Elma Irby RDMS Referred By: KENTON BOOKER Location: [facility] IP Visit Type: Inpatient - Hospital SERVICE(S) PROVIDED: US >= 14 weeks [address] BPP w/out NST [address]173 INDICATIONS: Threatened Labor Chronic hypertension, third trimester O10.913 VITAL SIGNS: Weight (lb): 154 Height: 5'6 BMI: 24.85 EVALUATION: Num Of Fetuses: 1 [...] BPP 12/03. RECOMMENDATIONS See inpatient chart. 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 If ventriculomegaly is confirmed, Treatment referral recommended. Follow up as clinically indicated and as previously scheduled. Ultrasound is not diagnostic for aneuploidy and will not detect all structural abnormalities, even if multiple exams are performed during a given . Normal ultrasound findings do not guarantee normal outcomes. Normal [facility] 24 HR UR Creatinine Clearanc john 01-11-2025 CREAT CLEARANCE Normal 100-200 [facility] Comment on above: Order Comment: 24 HO UR URINE Result Comment: NOT COLLECTED Performed By: #### L 500.8340, L501.0900 #### [facility] [address] [place], [place], [address] RANDOM UR TV Normal [facility] Comment on above: Order Comment: 24 HO UR URINE Result Comment: NOT COLLECTED Performed By: #### L 500.4050, L501.0900 #### [facility] [address] [place], [address] SERUM CREAT Normal 0.6-1.0 [facility] Comment on above: Order Comment: 24 HO UR URINE Result Comment: NOT COLLECTED Performed By: #### L 500.4050, L501.0900 #### [facility] [address] [place], [address] URINE CREAT Normal 28.00-217.00 [facility] Comment on above: Order Comment: 24 HO UR URINE Result Comment: NOT COLLECTED Performed By: #### L 500.4050, L501.0900 #### [facility] [address] [place], [address] ABO and Rh group Confirm Nom (Bld)on 01-11-2025 ABO group Nom (Bld) B [facility] [employer] D Ag Ql (RBC) [facility] AST(SGOT)on 01-11-2025 AST [Catalytic activity/Vol] 16 U/L Normal <=31 [facility] Comment on above: Performed By: #### L 3890.6006, L100.0100, L501.0250, L509.8002 #### [facility] [address] [place], [address] Absolute lymphocyte countOrd ered By: Butch Falcon on 01-11-2025 Lymphocytes Auto (Unsp spec) [#/Vol] 1.39 10*3/uL 0.83-4.51 [facility] Absolute neutrophil countOrd ered By: Butch Falcon on 01-11-2025 Neutrophils (Bld) [#/Vol] 8.8 10*3/uL High 2.0-7.7 [facility] Alanine Aminotransferas (SGP T)on 01-11-2025 ALT [Catalytic activity/Vol] 9 U/L Normal <=34 [facility] Comment on above: Performed By: #### L 3890.6006, L100.0100, L501.0250, L509.8002 #### [facility] [address] [place], [place], [address] Anion gap in Serum or Plasma Ordered By: Butch Falcon on 01-11-2025 Anion gap [Moles/Vol] 13 mmol/L 5-15 [facility] Automated blood erythrocyte countOrdered By: Yudith Montero on 01-11-2025 RBC (Bld) [#/Vol] 3.57 10*6/uL Low 4.2-5.4 [facility] Comment on above: Performed By: #### L 3890.6006, L100.0100, L501.0250, L509.8002 #### [facility] [address] [facility] [address] [place], [place], [id number] Automated blood hematocrit ( percentage)Ordered By: Yudith Montero on 01-11-2025 Hematocrit (Bld) [Volume fraction] 30.8 % Low 37-47 [facility] Comment on above: Performed By: #### L 3890.6006, L100.0100, L501.0250, L509.8002 #### [facility] [address] [facility] [place], [place], [id number] Automated lymphocyte count a s percentage of total leukocytesOrdered By: Butch Falcon on 01-11-2025 Lymphocytes/100 WBC Auto (Unsp spec) 12.6 % Low 19-41 [facility] BLOOD TYPE AND SCREEN GELon 01-11-2025 ABO GROUPING B Normal [facility] Comment on above: Performed By: #### L AB276 ####Apartment Community Manager: QUEENIE CASTRO ([phone])[facility] ([facility])[address] [place] [id number] [place] [address] RH TYPE IN BLOOD Positive Normal [facility] Comment on above: Performed By: #### L AB276 ####Apartment Community Manager: QUEENIE CASTRO ([phone])[facility] ([facility])[address] [place] [address] [place] BUN/creatinine ratioOrdered By: Butch Falcon on 01-11-2025 Urea nitrogen/Creatinine [Mass ratio] 12.0 mg/mg 10-20 [facility] Basophil percentageOrdered B y: Butch Falcon on 01-11-2025 Basophils/100 WBC (Bld) 0.3 % 0-1 [facility] Bilirubin Test strip Ql (U)O rdered By: Mally Maldonado on 01-11-2025 Bilirubin Ql (U) Negative Negative [facility] Bilirubin, totalOrdered By: Butch Falcon on 01-11-2025 Bilirubin [Mass/Vol] 0.50 mg/dL 0.00-1.30 [facility] Blood type and Crossmatch pa nima (Bld)on 01-11-2025 ABO group Nom (Bld) B [facility] [employer] Blood group antibody screen GEL Ql Negative [facility] D Ag Ql (RBC) Positive [facility] CBC W/Diff, Automatedon 12-27 Absolute Lymph 1.39 X10 3/uL Normal 0.83-4.51 [facility] Comment on above: Performed By: #### L 3890.6006, L100.0100, L501.0250, L509.8002 #### [facility] [address] [place], [address] Absolute Neut 8.8 X10 3/uL High 2.0-7.7 [facility] Comment on above: Performed By: #### L 3890.6006, L100.0100, L501.0250, L509.8002 #### [facility] [address] [place], [address] Basophils/100 WBC (Bld) 0.3 % Normal 0-1 [facility] Comment on above: Performed By: #### L 3890.6006, L100.0100, L501.0250, L509.8002 #### [facility] [address] [place], [address] Eosinophils/100 WBC (Bld) 0.8 % Normal 0-5 [facility] Comment on above: Performed By: #### L 3890.6006, L100.0100, L501.0250, L509.8002 #### [facility] [address] [place], [address] Erythrocyte distribution width (RBC) [Ratio] 12.7 % Normal 11.6-14.6 [facility] Comment on above: Performed By: #### L 3890.6006, L100.0100, L501.0250, L509.8002 #### [facility] [address] [place], [address] Hematocrit (Bld) [Volume fraction] 32.8 % Low 37-47 [facility] Comment on above: Performed By: #### L 3890.6006, L100.0100, L501.0250, L509.8002 #### [facility] [address] [place], [address] Hemoglobin (Bld) [Mass/Vol] 11.2 g/dL Low 12.0-15.0 [facility] Comment on above: Performed By: #### L 3890.6006, L100.0100, L501.0250, L509.8002 #### [facility] [address] [place], [address] IG% 1.400 High 0.0-0.9 [facility] Comment on above: Result Comment: IG% - Immature Granulocytes (promyelocytes, myelocytes and metamyelocytes) > 1% indicates that a LEFT SHIFT is Present. Performed By: #### L 3890.6006, L100.0100, L501.0250, L509.8002 #### [facility] [address] [place], [address] Lymphocytes/100 WBC (Bld) 12.6 % Low 19-41 [facility] Comment on above: Performed By: #### L 3890.6006, L100.0100, L501.0250, L509.8002 #### [facility] [address] [place], [address] MCH (RBC) [Entitic mass] 29.6 pg Normal 27.0-32.0 [facility] Comment on above: Performed By: #### L 3890.6006, L100.0100, L501.0250, L509.8002 #### [facility] [address] [place], [address] MCHC (RBC) [Mass/Vol] 34.1 g/dL Normal 32-36 [facility] Comment on above: Performed By: #### L 3890.6006, L100.0100, L501.0250, L509.8002 #### [facility] [address] [place], [address] MCV (RBC) [Entitic vol] 86.8 fL Normal 81-99 [facility] Comment on above: Performed By: #### L 3890.6006, L100.0100, L501.0250, L509.8002 #### [facility] [address] [place], [address] Monocytes/100 WBC (Bld) 4.8 % Normal 0-10 [facility] Comment on above: Performed By: #### L 3890.6006, L100.0100, L501.0250, L509.8002 #### [facility] [address] [place], [address] Neutrophils/100 WBC (Bld) 80.1 % High 47-70 [facility] Comment on above: Performed By: #### L 3890.6006, L100.0100, L501.0250, L509.8002 #### [facility] [address] [place], [address] Nucleated RBC (Bld) [#/Vol] 0 10*3/uL Normal 0-5 [facility] Comment on above: Performed By: #### L 3890.6006, L100.0100, L501.0250, L509.8002 #### [facility] [address] [place], [address] Platelet mean volume (Bld) [Entitic vol] 9.4 fL Normal 6.2-12.0 [facility] Comment on above: Performed By: #### L 3890.6006, L100.0100, L501.0250, L509.8002 #### [facility] [address] [place], [address] Platelets (Bld) [#/Vol] 361 10*3/uL Normal 150-450 [facility] Comment on above: Performed By: #### L 3890.6006, L100.0100, L501.0250, L509.8002 #### [facility] [address] [place], [address] RBC (Bld) [#/Vol] 3.78 10*6/uL Low 4.2-5.4 [facility] Comment on above: Performed By: #### L 3890.6006, L100.0100, L501.0250, L509.8002 #### [facility] [address] [place], [address] RDW SD 40.1 fl Normal 35.1-43.9 [facility] Comment on above: Performed By: #### L 3890.6006, L100.0100, L501.0250, L509.8002 #### [facility] [address] [place], [address] WBC (Bld) [#/Vol] 11.0 10*3/uL Normal 4.4-11.0 [facility] Comment on above: Performed By: #### L 3890.6006, L100.0100, L501.0250, L509.8002 #### [facility] [address] [place], [address] CBC-Complete Blood Cnt No Di ffon 01-11-2025 RDW SD 40.0 fl Normal 35.1-43.9 [facility] Comment on above: Performed By: #### L 3890.6006, L100.0100, L501.0250, L509.8002 #### [facility] [address] [place], [address] CHLAMYDIA/GONORRHEAon 2024 CHLAMYDIA/GONORRHEA NEISSERIA GONORRHOEAE DNA PROBE [...] should be collected if clinically indicated. Normal [facility] Comment on above: Performed By: #### L [id number], [id number] #### Apartment Community Manager: QUEENIE CASTRO ([phone]) [facility] ([facility] [address] [place] [address] Carbon dioxide, total [Moles /volume] in Central venous bloodOrdered By: Butch Falcon on 01-11-2025 CO2 [Moles/Vol] 20.6 mmol/L Low 21.0-32.0 [facility] Chloride assayOrdered By: Rico Falcon on 01-11-2025 Chloride [Moles/Vol] 103 mmol/L 98-108 [facility] Comprehensive Metabolic Prof ilon 01-11-2025 Albumin [Mass/Vol] 3.8 g/dL Normal 3.5-5.0 [facility] Comment on above: Performed By: #### L 500.4050, L501.0900 #### [facility] [address] [place], [address] Albumin/Globulin [Mass ratio] 1.1 {ratio} Normal 0.9-2.4 [facility] Comment on above: Performed By: #### L 500.4050, L501.0900 #### [facility] [address] [place], [address] ALK PHOS 102 U/L Normal 35-104 [facility] Comment on above: Performed By: #### L 500.4050, L501.0900 #### [facility] [address] [place], [address] ALT [Catalytic activity/Vol] 10 U/L Normal <=34 [facility] Comment on above: Performed By: #### L 500.4050, L501.0900 #### [facility] [address] [place], [address] AST [Catalytic activity/Vol] 15 U/L Normal <=31 [facility] Comment on above: Performed By: #### L 500.4050, L501.0900 #### [facility] [address] [place], [address] Bilirubin [Mass/Vol] 0.50 mg/dL Normal 0.00-1.30 [facility] Comment on above: Performed By: #### L 500.4050, L501.0900 #### [facility] [address] [place], [address] BUN/CRE 12.0 RATIO Normal 10-20 [facility] Comment on above: Performed By: #### L 500.4050, L501.0900 #### [facility] [address] [place], [address] Calcium [Mass/Vol] 9.0 mg/dL Normal 7.6-11.0 [facility] Comment on above: Performed By: #### L 500.4050, L501.0900 #### [facility] [address] [place], [address] Chloride [Moles/Vol] 103 mmol/L Normal 98-108 [facility] Comment on above: Performed By: #### L 500.4050, L501.0900 #### [facility] [address] [place], [address] CO2 [Moles/Vol] 20.6 mmol/L Low 21.0-32.0 [facility] Comment on above: Performed By: #### L 500.4050, L501.0900 #### [facility] [address] [place], [address] Creatinine [Mass/Vol] 0.55 mg/dL Low 0.70-1.20 [facility] Comment on above: Performed By: #### L 500.4050, L501.0900 #### [facility] [address] [place], [address] ECRCL 147.65 ml/min Normal 50-250 [facility] Comment on above: Performed By: #### L 500.4050, L501.0900 #### [facility] [address] [place], [address] GAP 13 Normal 5-15 [facility] Comment on above: Performed By: #### L 500.4050, L501.0900 #### [facility] [address] [place], [address] GFR/1.73 sq M.predicted among non-blacks MDRD (S/P/Bld) [Vol rate/Area] 131 mL/min/{1.73_m2} Normal >60 [facility] Comment on above: Result Comment: mL/m in/1.73m2 CKD-EPI Creatinine Equation (2020) Performed By: #### L 500.4050, L501.0900 #### [facility] [address] [place], [address] Globulin (S) [Mass/Vol] 3.3 g/dL Normal 2.2-4.2 [facility] Comment on above: Performed By: #### L 500.4050, L501.0900 #### [facility] [address] [place], [address] Glucose [Mass/Vol] 86 mg/dL Normal 70-99 [facility] Comment on above: Performed By: #### L 500.4050, L501.0900 #### [facility] [address] [place], [address] Potassium [Moles/Vol] 3.5 mmol/L Normal 3.3-5.1 [facility] Comment on above: Performed By: #### L 500.4050, L501.0900 #### [facility] [address] [place], [address] Sodium [Moles/Vol] 137 mmol/L Normal 133-145 [facility] Comment on above: Performed By: #### L 500.4050, L501.0900 #### [facility] [address] [place], [address] T PROT 7.1 g/dL Normal 5.9-8.4 [facility] Comment on above: Performed By: #### L 500.4050, L501.0900 #### [facility] [address] [place], [address] Urea nitrogen [Mass/Vol] 7 mg/dL Normal 4-19 [facility] Comment on above: Performed By: #### L 500.4050, L501.0900 #### [facility] [address] [place], [address] ECG 12-LEADon 01-11-2025 ECG 12-LEAD IMPRESSION: Sinus rhythm Electronically Signed On 01-11-2025 22:21:45 EDT by Juma Berrios Normal [facility] Eosinophil percentageOrdered By: Butch Falcon on 01-11-2025 Eosinophils/100 WBC (Bld) 0.8 % 0-5 [facility] Erythrocyte distribution wid th ratioOrdered By: Yudith Montero on 01-11-2025 Erythrocyte distribution width (RBC) [Ratio] 12.9 % Normal 11.6-14.6 [facility] Comment on above: Performed By: #### L 3890.6006, L100.0100, L501.0250, L509.8002 #### [facility] [address] [place], [address] Erythrocyte distribution wid th standard deviationOrdered By: Yudith Montero on 01-11-2025 Erythrocyte distribution width (RBC) [Ratio] 40.0 fl 35.1-43.9 [facility] Fibronectinon 01-12-20 25 fFIBRONECTIN Negative Normal [facility] Comment on above: Performed By: #### L 3890.6006, L100.0100, L501.0250, L509.8002 #### [facility] [address] [place], [address] fibronectinOrdered By: Mally Maldonado on 01-11-2025 Fibronectin. (Vag fld) [Mass/Vol] Negative [facility] GROUP B STREP SCREEN BY PCRo n 01-11-2025 GROUP B STREP SCREEN BY PCR GROUP B STREP SCREEN BY PCR Reference Not Detected Not Detected ORDER COMMENTS: Methodology: real-time PCR Comment on above: Performed By: #### L [id number] ####Apartment Community Manager: QUEENIE CASTRO ([phone])[facility] ([address] Glomerular filtration rate ( GFR) estimation/1.73 sq m using serum, plasma, or whole bOrdered By: Yudith Montero on 01-11-2025 GFR/1.73 sq M.predicted among non-blacks MDRD (S/P/Bld) [Vol rate/Area] 141 mL/min/{1.73_m2} >60 [facility] Comment on above: mL/min/1.73m2 CKD-EP I Creatinine Equation (2020) Glucose Challenge Gest 1H 50 emerita 01-11-2025 GLU GEST 50g 1H 87 mg/dL Normal 70-140 [facility] Comment on above: Performed By: #### L 3890.6006, L100.0100, L501.0250, L509.8002 #### [facility] [address] 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 01/11/25 1623 MR#: [id number] Acct: [id number] Name: LEONOR HAGER Rep #: [id number] : 2000 24 From: Yudith Harper DO PCP: Care Physician,No Primary Status:[facility] Location: [place] [address]1 HPI - General HPI Narrative LEONOR HAGER, is a 24 y/o @ 28 weeks who presents to D from the office due to bp's in [...] current occupational status: 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 -???-???-???-???-??? -???-???- 161 -???-???-???-???-??? -???-???-???-???-??? -???-???- J- [facility] is c onsistent with LMP. Desires NIPT. [...] -???-???- Neg (more content not included)... Normal [facility] HBV surface Ag IA Qlon 01-11 External Hepatitis B Surface Ag Negative Negative, None Detected [facility] HIVon 01-11-2025 HIV Non-Reactive Normal Nonreactive [facility] Comment on above: Result Comment: Non- Reactive Reactive Repeatedly reactive samples must be confirmed according to CDC recommended confirmatory algorithms. The subresults for either HIVAG or AHIV can be used as an aid in the selection of the confirmation algorithm for reactive samples. Send out specimens with Reactive results to [facility] for confirmation. Order the HIV antibody detection and differentiation: #[id number] Performed By: #### L 3890.6006, L100.0100, L501.0250, L509.8002 #### [facility] [address] [place], [address] HIV 1+2 Ab+HIV1 p24 Ag IA Ql on 01-11-2025 HIV-1/HIV-2 Ab Negative [facility] Hemoglobin measurementOrdere d By: Yudith Montero on 01-11-2025 Hemoglobin (Bld) [Mass/Vol] 10.7 g/dL Low 12.0-15.0 [facility] Comment on above: Performed By: #### L 3890.6006, L100.0100, L501.0250, L509.8002 #### [facility] [address] [place], [address] Immature granulocytes/100 WB C Auto (Bld)Ordered By: Butch Falcon on 01-11-2025 Immature granulocytes/100 WBC (Bld) 1.400 % High 0.0-0.9 [facility] Comment on above: IG% - Immature Granu locytes (promyelocytes, myelocytes and metamyelocytes) > 1% indicates that a LEFT SHIFT is Present. Ketones Test strip Ql (U)Ord ered By: Mally Maldonado on 01-11-2025 Ketones Ql (U) 150 mg/dl Negative [facility] Comment on above: CRITICAL VALUE *HCRI TICAL VALUE CALLED TO WING KEBEDE01/11/25 1735 Tracee March.RESULTS READ BACK BY SAME. LDHon 01-11-2025 LDH 148 U/L Normal 84-246 [facility] Comment on above: Performed By: #### L 3890.6006, L100.0100, L501.0250, L509.8002 #### [facility] [address] [place], [address] Laboratory - Chemistry and C hemistry - challengeOrdered By: Yudith Montero on 01-11-2025 AST [Catalytic activity/Vol] 16 U/L <32 [facility] - Chemistry and C hemistry - challengeOrdered By: Butch Falcon on 01-11-2025 Glucose Ql (U) Negative [facility] - Microbiology an d Antimicrobial susceptibilityon 01-11-2025 HCV Ab IA Ql NR [facility] Rubella virus IgG Ql (S) NR [facility] Laboratory - UrinalysisOrder ed By: Butch Falcon on 01-11-2025 Protein Ql (U) Trace [facility] Lactate dehydrogenase (LDH) measurementOrdered By: Yudith Montero on 01-11-2025 LDH [Catalytic activity/Vol] 148 U/L 84-246 [facility] Liveron 01-11-2025 Liver [facility] Imaging Services [address] [place] [address] Liver MR#: [id number] Acct: [id number] Name: LEONOR HAGER Rep #: [id number] : 2000 F 24 From: Wilbur Osorio MD PCP: Care Physician,No Primary Status: REG CLI Study: Liver Date of Exam: 01/11/25 Exam# [id number] Ordering Dr: Mally Maldonado CNM PROCEDURE: LIVER [...] clinically indicated. Mild right hydronephrosis. Reading Location: [id number] CC: UVALDO Maldonado; No Primary Care Physician Stroke Belt Sander Operator: Signed Normal [facility] MCV (mean corpuscular volume ) determinationOrdered By: Yudith Montero on 01-11-2025 MCV (RBC) [Entitic vol] 86.3 fL Normal 81-99 [facility] Comment on above: Performed By: #### L 3890.6006, L100.0100, L501.0250, L509.8002 #### [facility] [address] [place], [address] Mean corpuscular hemoglobin (MCH) determinationOrdered By: Yudith Montero on 01-11-2025 MCH (RBC) [Entitic mass] 30.0 pg Normal 27.0-32.0 [facility] Comment on above: Performed By: #### L 3890.6006, L100.0100, L501.0250, L509.8002 #### [facility] [address] [place], [address] Mean corpuscular hemoglobin concentration (MCHC) determinationOrdered By: Yudith Montero on 01-11-2025 MCHC (RBC) [Mass/Vol] 34.7 g/dL Normal 32-36 [facility] Comment on above: Performed By: #### L 3890.6006, L100.0100, L501.0250, L509.8002 #### [facility] [address] [facility] [place], [address] Mean platelet volume determi nationOrdered By: Yudith Montero on 01-11-2025 Platelet mean volume (Bld) [Entitic vol] 10.1 fL Normal 6.2-12.0 [facility] Comment on above: Performed By: #### L 3890.6006, L100.0100, L501.0250, L509.8002 #### [facility] [address] [facility] [place], [address] Monocyte percentageOrdered B y: Butch Falcon on 01-11-2025 Monocytes/100 WBC (Bld) 4.8 % 0-10 [facility] N. gonorrhoeae DNA ENRIQUE+probe Ql (Cervical mucus)on 01-11-2025 C. trachomatis rRNA ENRIQUE+probe Ql (Unsp spec) Negative [facility] N. gonorrhoeae rRNA ENRIQUE+probe Ql (Unsp spec) Negative [facility] Neutrophil percentageOrdered By: Butch Falcon on 01-11-2025 Neutrophils/100 WBC (Bld) 80.1 % High 47-70 [facility] Nitrite Test strip Ql (U)Ord ered By: Mally Maldonado on 01-11-2025 Nitrite Ql (U) Negative Negative [facility] No Panel Informationon 01-11 [facility] [employer] Sinus rhythm Electronically Signed On 01-11-2025 22:21:45 EDT by Juma Vernon MD - 01/11/2025 IMPRESSION: Sinus rhythm Electronically Signed On 01-11-2025 22:21:45 EDT by Juma Berrios [facility] [employer] No Panel InformationOrdered By: Juma Berrios on 01-11-2025 P Fitz[place]ugh 60 degrees [place] Work Phone: UT Interval 157 ms [facility] [employer] Work Phone: QRS [place] 63 degrees [facility] [employer] Work Phone: QRSD Interval 77 ms [facility] [employer] Work Phone: QT Interval 365 ms [employer] Work Phone: QTC Interval 458 ms [facility] [employer] Work Phone: T Wave Fitz[place]ugh 13 degrees [facility] [employer] Work Phone: [employer] Work Phone: No Panel InformationOrdered By: Butch Falcon on 01-11-2025 HIV (1&2) Antibody Non-Reactive Nonreactive [facility] Comment on above: Non-ReactiveReactive Repeatedly reactive samples must be confirmed according to CDC recommended confirmatory algorithms. The subresults for either HIVAG or AHIV can be used as an aid in the selection of the confirmation algorithm for reactive samples.Send out specimens with Reactive results to [facility] for confirmation.Order the HIV antibody detection and differentiation: #[id number] Nucleated red blood cell per centageOrdered By: Butch Falcon on 01-11-2025 Nucleated RBC/100 WBC (Bld) [Ratio] 0 % 0-5 [facility] OB Limited With Biometricson 01-11-2025 OB Limited With Biometrics [facility] Imaging Services [address] [place], [place] [id number] OB Limited With Biometrics MR#: [id number] Acct: [id number] Name: LEONOR HAGER Rep #: [id number] : 2000 F 24 From: Allan lockhart MD PCP: Care Physician,No Primary Status: REG CLI Study: OB Limited With Biometrics Date of Exam: 01/11 Exam# [id number] Ordering Dr: Yudith Harper DO PROCEDURE: OB [...] 29 weeks and 2 days. Reading Location: [place] [address] CC: Dr. Yudith Harper DO; No Primary Care Physician Stroke Belt Sander Operator: Signed Normal [facility] Strategy Consultant Office Visit Reporton 01-11-2025 Strategy Consultant Office Visit Report [facility], [address] [place] [address] OFFICE VISIT Date of Service: 01/11/25 MR#: [id number] Acct: [id number] Name: LEONOR HAGER Rep #: [id number] : 2000 Provider: LOTTIE winters Age/Sex: 24/F Location[place] [facility] Status: Signed Intake Vital Signs 11/26/24 09:45 12/23/24 09:25 01/11/25 09:24 Height 5 ft 6 in 5 ft 6 in 5 ft 6 in Weight: 156 lb 2 oz BMI 25.2 BP 144/96 H Intake Visit Reasons: 28wk ob/glucose Chief Complaint: 28 Week 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 glu (more content not included)... Normal [facility] Platelet countOrdered By: Leonard Montero on 01-11-2025 Platelets (Bld) [#/Vol] 347 10*3/uL Normal 150-450 [facility] Comment on above: Performed By: #### L 3890.6006, L100.0100, L501.0250, L509.8002 #### [facility] [address] [place], [address] Potassium measurement (mass/ volume)Ordered By: Butch Falcon on 01-11-2025 Potassium (Unsp spec) [Mass/Vol] 3.5 mmol/L 3.3-5.1 [facility] Protein Test strip Ql (U)Ord ered By: Mally Maldonado on 01-11-2025 Protein Ql (U) Negative Negative [facility] Protein+Creatinine Ratio,Uri neon 01-11-2025 PROT:CRE RATIO 230 mg/g CRE High 0-200 [facility] Comment on above: Performed By: #### L 3890.6006, L100.0100, L501.0250, L509.8002 #### [facility] [address] [place], [address] Protein (U) [Mass/Vol] 13.9 mg/dL High 0.0-12.0 [facility] Comment on above: Performed By: #### L 3890.6006, L100.0100, L501.0250, L509.8002 #### [facility] [address] [place], [address] UR CREAT 60.40 mg/dL Normal 28.00-217.00 [facility] Comment on above: Performed By: #### L 3890.6006, L100.0100, L501.0250, L509.8002 #### [facility] [address] [place], [address] PROT:CRE RATIO 226 mg/g CRE High 0-200 [facility] Comment on above: Performed By: #### L 500.4050, L501.0900 #### [facility] [address] [place], [address] Protein (U) [Mass/Vol] 30.0 mg/dL High 0.0-12.0 [facility] Comment on above: Performed By: #### L 500.4050, L501.0900 #### [facility] [address] [place], [address] UR CREAT 133.00 mg/dL Normal 28.00-217.00 [facility] Comment on above: Performed By: #### L 500.4050, L501.0900 #### [facility] [address] [place], [address] Protein, Urine 24HRon 2024 24hr UR PROTEIN Normal <150 MG/24HR [facility] Comment on above: Order Comment: 24 HO UR URINE Result Comment: NOT COLLECTED Performed By: #### L 500.4050, L501.0900 #### [facility] [address] [place], [address] Protein Ql (U) Normal <11.9 [facility] Comment on above: Order Comment: 24 HO UR URINE Result Comment: NOT COLLECTED Performed By: #### L 500.4050, L501.0900 #### [facility] [address] [place], [address] UR COLLECT TIME Normal 24.0 [facility] Comment on above: Order Comment: 24 HO UR URINE Result Comment: NOT COLLECTED Performed By: #### L 500.4050, L501.0900 #### [facility] [address] [place], [address] UR TOTAL VOLUME Normal [facility] Comment on above: Order Comment: 24 HO UR URINE Result Comment: NOT COLLECTED Performed By: #### L 500.4050, L501.0900 #### [facility] [address] [place], [address] Random urine creatinine mariza urement (mass/volume)Ordered By: Yudith Montero on 01-11-2025 Creatinine Unsp time (U) [Mass/Vol] 60.40 mg/dL 28.00-217.00 [facility] Serum Creatinine AND GFRon 0 01-11-2025 Creatinine [Mass/Vol] 0.41 mg/dL Low 0.70-1.20 [facility] Comment on above: Performed By: #### L 3890.6006, L100.0100, L501.0250, L509.8002 #### [facility] [address] [place], [address] ECRCL 198.07 ml/min Normal 50-250 [facility] Comment on above: Performed By: #### L 3890.6006, L100.0100, L501.0250, L509.8002 #### [facility] [address] [place], [address] GFR/1.73 sq M.predicted among non-blacks MDRD (S/P/Bld) [Vol rate/Area] 141 mL/min/{1.73_m2} Normal >60 [facility] Comment on above: Result Comment: mL/m in/1.73m2 CKD-EPI Creatinine Equation (2020) Performed By: #### L 3890.6006, L100.0100, L501.0250, L509.8002 #### [facility] [address] [place], [place], [address] Serum creatinine measurement (mass/volume)Ordered By: Yudith Montero on 01-11-2025 Creatinine [Mass/Vol] 0.41 mg/dL Low 0.70-1.20 [facility] Serum globulin measurementOr dered By: Butch Falcon on 01-11-2025 Globulin (S) [Mass/Vol] 3.3 g/dL 2.2-4.2 [facility] Serum glucose measurement (m ass/volume)Ordered By: Butch Falcon on 01-11-2025 Glucose [Mass/Vol] 86 mg/dL 70-99 [facility] Serum or plasma alanine villaseñor otransferase (ALT) measurementOrdered By: Yudith Montero on 01-11-2025 ALT [Catalytic activity/Vol] 9 U/L <35 [facility] Serum or plasma albumin mariza urement (mass/volume)Ordered By: Butch Falcon on 01-11-2025 Albumin [Mass/Vol] 3.8 g/dL 3.5-5.0 [facility] Serum or plasma albumin/glob ulin mass ratioOrdered By: Butch Falcon on 01-11-2025 Albumin/Globulin [Mass ratio] 1.1 {ratio} 0.9-2.4 [facility] Serum or plasma alkaline vicky sphatase measurementOrdered By: Butch Falcon on 01-11-2025 ALP [Catalytic activity/Vol] 102 U/L 35-104 [facility] Serum or plasma calcium mariza urement (mass/volume)Ordered By: Butch Falcon on 01-11-2025 Calcium [Mass/Vol] 9.0 mg/dL 7.6-11.0 [facility] Serum or plasma urea nitroge n measurement (mass/volume)Ordered By: Butch Falcon on 01-11-2025 Urea nitrogen [Mass/Vol] 7 mg/dL 4-19 [facility] Serum or plasma uric acid me asurement (mass/volume)Ordered By: Yudith Montero on 01-11-2025 Urate [Mass/Vol] 3.2 mg/dL 2.6-6.0 [facility] Comment on above: The drugs N-Acetylcy steine and Metamizole may falsely depress this assay. Sodium levelOrdered By: Aren Falcon on 01-11-2025 Sodium [Moles/Vol] 137 mmol/L 133-145 [facility] Syphilis Antibodieson 2024 Syphilis Abs Non-Reactive Normal Nonreactive [facility] Comment on above: Performed By: #### L 3890.6006, L100.0100, L501.0250, L509.8002 #### [facility] [address] [place], [address] T. vaginalis DNA ENRIQUE+probe Q l (Genital specimen)on 01-11-2025 Interpretation and review of laboratory results Normal [facility] Trichomonas vaginalis Not detected Not Detected [facility] Methodology: real-time PCR A negative result [...] sexual abuse or for other forensic purposes. [facility] TRICHOMONAS VAGINALIS PCRon 01-11-2025 TRICHOMONAS VAGINALIS PCR [...] abuse or for other forensic purposes. Normal [facility] Comment on above: Performed By: #### L [id number], [id number] #### Apartment Community Manager: QUEENIE CASTRO ([phone]) [facility] ([facility]) [address] [place] [address] Total proteinOrdered By: Maddie Falcon on 01-11-2025 Protein [Mass/Vol] 7.1 g/dL 5.9-8.4 [facility] URINE CULTUREon 01-11-2025 Bacteria identified Cx Nom (U) URINE CULTURE Reference Normal urogenital dano present [ S = SUSCEPTIBLE R = RESISTANT I = INTERMEDIATE S-DD = Susceptible-dose dependent NS = Non-susceptible NO = No Interpretation ] Normal [facility] Comment on above: Performed By: #### L AB239 ####Apartment Community Manager: QUEENIE CASTRO ([phone])[facility] [place] [address] Uric Acidon 01-11-2025 URIC 3.2 mg/dL Normal 2.6-6.0 [facility] Comment on above: Result Comment: The drugs N-Acetylcysteine and Metamizole may falsely depress this assay. Performed By: #### L 3890.6006, L100.0100, L501.0250, L509.8002 #### [facility] [address] [place], [place], [id number] Urinalysis, Routine (Dipstic k)on 01-11-2025 KETONE UR 150 mg/dl Abnormal Negative [facility] Comment on above: Order Comment: KATHARINE MURRELL TO SPECIFY Result Comment: CRIT ICAL VALUE *H CRITICAL VALUE CALLED TO WING KEBEDE 01/11/25 173Ana March. RESULTS READ BACK BY SAME. Performed By: #### L 400.2010 ####[facility] [address] [place], [place], [id number] BILIRUBIN URINE Negative Normal Negative [facility] Comment on above: Order Comment: KATHARINE MURRELL TO SPECIFY Performed By: #### L 400.2010 ####[facility] [address] [place], [place], [id number] Clarity (U) Cloudy Normal Clear [facility] Comment on above: Order Comment: COLLE CTOR TO SPECIFY Performed By: #### L 400.2010 ####[facility] [address] [place], [address] Color (U) Yellow Normal Yellow [facility] Comment on above: Order Comment: COLLE CTOR TO SPECIFY Performed By: #### L 400.2010 ####[facility] [address] [place], [address] GLUCOSE, UR Normal Normal Normal [facility] Comment on above: Order Comment: COLLE CTOR TO SPECIFY Performed By: #### L 400.2010 ####[facility] [address] [place], [address] LEUK ESTERASE Negative Normal Negative [facility] Comment on above: Order Comment: COLLE CTOR TO SPECIFY Performed By: #### L 400.2010 ####[facility] [address] [place], [address] Nitrite Ql (U) Negative Normal Negative [facility] Comment on above: Order Comment: COLLE CTOR TO SPECIFY Performed By: #### L 400.2010 ####[facility] [address] [place], [address] OCCULT BLOOD-UR Negative Normal Negative [facility] Comment on above: Order Comment: COLLE CTOR TO SPECIFY Performed By: #### L 400.2010 ####[facility] [address] [place], [address] pH UR 6.0 Normal 5.0 - 8.0 [facility] Comment on above: Order Comment: COLLE CTOR TO SPECIFY Performed By: #### L 400.2010 ####[facility] [address] [place], [address] PROT DIPSTX Negative Normal Negative [facility] Comment on above: Order Comment: COLLE CTOR TO SPECIFY Performed By: #### L 400.2010 ####[facility] [address] [place], [address] SP.GR. DIPSTX 1.025 Normal 1.002-1.030 [facility] Comment on above: Order Comment: KATHARINE GUPTAOR TO SPECIFY Performed By: #### L 400.2010 ####[facility] [address] [place], [place], [address] UROBILI Normal Normal Normal [facility] Comment on above: Order Comment: KATHARINE CTOR TO SPECIFY Performed By: #### L 400.2010 ####[facility] [address] [place], [place], [id number] Urine clarityOrdered By: Duy Maldonado on 01-11-2025 Clarity (U) Cloudy Clear [facility] Urine color determinationOrd ered By: Mally Maldonado on 01-11-2025 Color (U) Yellow Yellow [facility] Urine cultureOrdered By: Duy Maldonado on 01-11-2025 Bacteria identified Cx Nom (U) Positive Abnormal [facility] Bacteria identified Cx Nom (U) Positive Abnormal [facility] Urine glucose detectionOrder ed By: Mally Maldonado on 01-11-2025 Glucose Ql (U) Normal mg/dl Normal [facility] Urine leukocyte esterase det ection by dipstickOrdered By: Mally Maldonado on 01-11-2025 Leukocyte esterase Test strip Ql (U) Negative Negative [facility] Urine pHOrdered By: Mally Ford llstormy on 01-11-2025 pH (U) 6.0 [pH] 5.0 - 8.0 [facility] Urine protein measurement (m ass/volume)Ordered By: Yudith Montero on 01-11-2025 Protein (U) [Mass/Vol] 13.9 mg/dL High 0.0-12.0 [facility] Urine protein/creatinine mas s ratioOrdered By: Yudith Montero on 01-11-2025 Protein/Creatinine (U) [Mass ratio] 230 mg/g CRE High 0-200 [facility] Urine specific gravity measu rementOrdered By: Mally Maldonado on 01-11-2025 Specific gravity (U) [Rel density] 1.025 1.002-1.030 [facility] Urine urobilinogen measureme ntOrdered By: Mally Maldonado on 01-11-2025 Urobilinogen Ql (U) Normal mg/dl Normal [facility] Vital signsOrdered By: Jassi Berrios on 01-11-2025 Heart rate 94 /min bpm [facility] [employer] Work Phone: White blood cell (WBC) count Ordered By: Yudith Montero on 01-11-2025 WBC (Bld) [#/Vol] 14.1 10*3/uL High 4.4-11.0 [facility] Comment on above: Performed By: #### L 3890.6006, L100.0100, L501.0250, L509.8002 #### [facility] [address] [place], [place], [id number] Laboratory - Chemistry and C hemistry - challengeOrdered By: Mally Maldonado on 12-23-2024 Glucose Ql (U) Negative [facility] - UrinalysisOrder ed By: Mally Maldonado on 12-23-2024 Protein Ql (U) Negative [facility] Strategy Consultant Office Visit Reporton 12-23-2024 Strategy Consultant Office Visit Report [facility] [address], [address] [place] [address] OFFICE VISIT Date of Service: 12/23/24 MR#: [id number] Acct: [id number] Name: LEONOR HAGER Rep #: [id number] : 2000 Provider: UVALDO Medeiros ams Age/Sex: 24/F [place] [facility] [place] Signed Intake Vital Signs 11/26/24 09:45 12/16/24 12:15 12/23/24 09:25 Height 5 ft 6 in 5 ft 6 in 5 ft 6 in Weight: 151 lb 8 oz BMI 24.4 BP 132/87 H Intake Visit Reasons: 25wk ob Chief Complaint: 25wk ob Pointer Helper Required: No Is patient in pain?: No [...] current occupational status: 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 Normal [facility] AST(SGOT)on 12-16-2024 AST [Catalytic activity/Vol] 15 U/L Normal <=31 [facility] Comment on above: Performed By: #### L 3890.6006, L100.0100, L501.0250, L509.8002 #### [facility] [address] [place] [place], [address] Alanine Aminotransferas (SGP T)on 12-16-2024 ALT [Catalytic activity/Vol] 9 U/L Normal <=34 [facility] Comment on above: Performed By: #### L 3890.6006, L100.0100, L501.0250, L509.8002 #### [facility] [address] [place], [address] CBC-Complete Blood Cnt No Di ffon 12-16-2024 Erythrocyte distribution width (RBC) [Ratio] 12.6 % Normal 11.6-14.6 [facility] Comment on above: Performed By: #### L 3890.6006, L100.0100, L501.0250, L509.8002 #### [facility] [address] [place], [address] Hematocrit (Bld) [Volume fraction] 30.8 % Low 37-47 [facility] Comment on above: Performed By: #### L 3890.6006, L100.0100, L501.0250, L509.8002 #### [facility] [address] [place], [address] Hemoglobin (Bld) [Mass/Vol] 10.6 g/dL Low 12.0-15.0 [facility] Comment on above: Performed By: #### L 3890.6006, L100.0100, L501.0250, L509.8002 #### [facility] [address] [place], [address] MCH (RBC) [Entitic mass] 30.1 pg Normal 27.0-32.0 [facility] Comment on above: Performed By: #### L 3890.6006, L100.0100, L501.0250, L509.8002 #### [facility] [address] [place], [address] MCHC (RBC) [Mass/Vol] 34.4 g/dL Normal 32-36 [facility] Comment on above: Performed By: #### L 3890.6006, L100.0100, L501.0250, L509.8002 #### [facility] [address] [place], [address] MCV (RBC) [Entitic vol] 87.5 fL Normal 81-99 [facility] Comment on above: Performed By: #### L 3890.6006, L100.0100, L501.0250, L509.8002 #### [facility] [address] [place], [address] Platelet mean volume (Bld) [Entitic vol] 9.4 fL Normal 6.2-12.0 [facility] Comment on above: Performed By: #### L 3890.6006, L100.0100, L501.0250, L509.8002 #### [facility] [address] [place], [address] Platelets (Bld) [#/Vol] 316 10*3/uL Normal 150-450 [facility] Comment on above: Performed By: #### L 3890.6006, L100.0100, L501.0250, L509.8002 #### [facility] [address] [place], [address] RBC (Bld) [#/Vol] 3.52 10*6/uL Low 4.2-5.4 [facility] Comment on above: Performed By: #### L 3890.6006, L100.0100, L501.0250, L509.8002 #### [facility] [address] [place], [address] RDW SD 40.1 fl Normal 35.1-43.9 [facility] Comment on above: Performed By: #### L 3890.6006, L100.0100, L501.0250, L509.8002 #### [facility] [address] [place], [address] WBC (Bld) [#/Vol] 11.6 10*3/uL High 4.4-11.0 [facility] Comment on above: Performed By: #### L 3890.6006, L100.0100, L501.0250, L509.8002 #### [facility] [address] [place], [address] Erythrocyte distribution wid th ratioOrdered By: Catie Krishnan on 12-16-2024 Erythrocyte distribution width (RBC) [Ratio] 12.6 % 11.6-14.6 [facility] Erythrocyte distribution wid th standard deviationOrdered By: Catie Krishnan on 12-16-2024 Erythrocyte distribution width (RBC) [Ratio] 40.1 fl 35.1-43.9 [facility] Glomerular filtration rate ( GFR) estimation/1.73 sq m using serum, plasma, or whole bOrdered By: Catie Krishnan on 12-16-2024 GFR/1.73 sq M.predicted among non-blacks MDRD (S/P/Bld) [Vol rate/Area] 136 mL/min/{1.73_m2} >60 [facility] Comment on above: mL/min/1.73m2 CKD-EP I Creatinine Equation (2020) Hematocrit Auto (Bld) [Volum e fraction]Ordered By: Catie Krishnan on 12-16-2024 Hematocrit (Bld) [Volume fraction] 30.8 % Low 37-47 [facility] Hemoglobin measurementOrdere d By: Catie Krishnan on 12-16-2024 Hemoglobin (Bld) [Mass/Vol] 10.6 g/dL Low 12.0-15.0 [facility] - Chemistry and C hemistry - challengeOrdered By: Catie Krishnan on 08-21-2025 AST [Catalytic activity/Vol] 15 U/L <32 [facility] MCV (mean corpuscular volume ) determinationOrdered By: Catie Krishnan on 12-16-2024 MCV (RBC) [Entitic vol] 87.5 fL 81-99 [facility] Mean corpuscular hemoglobin (MCH) determinationOrdered By: Catie Krishnan on 12-16-2024 MCH (RBC) [Entitic mass] 30.1 pg 27.0-32.0 [facility] Mean corpuscular hemoglobin concentration (MCHC) determinationOrdered By: Catie Krishnan on 12-16-2024 MCHC (RBC) [Mass/Vol] 34.4 g/dL 32-36 [facility] Mean platelet volume determi nationOrdered By: Catie Krishnan on 12-16-2024 Platelet mean volume (Bld) [Entitic vol] 9.4 fL 6.2-12.0 [facility] OB Triage Progress Noteon OB Triage Progress Note [facility] Medical Records Department [address] [place] [address] OB Triage Progress Note 12/16/24 1344 MR#: [id number] Acct: [id number] Name: LEONOR HAGER Rep #: [id number] : 2000 24 From: Catie Krishnan MD PCP: Care Physician,No Primary Status:DEP CLI Y DOS: Location: [facility]OUT Progress Notes Date of Service: 12/17/24 Progress Note: Patient presents for triage evaluation secondary to elevated bloodpressure FHT: 140 Moderate variability reactive no decelerations category I tracing [place]: no regular Contractions Assessment and plan: blood [...] No Primary Care Physician * Signed Normal [facility] Platelet countOrdered By: Amaury Krishnan on 12-16-2024 Platelets (Bld) [#/Vol] 316 10*3/uL 150-450 [facility] Protein+Creatinine Ratio,Uri neon 12-16-2024 PROT:CRE RATIO 233 mg/g CRE High 0-200 [facility] Comment on above: Performed By: #### L 3890.6006, L100.0100, L501.0250, L509.8002 #### [facility] [address] [place], [address] PROTEIN,UR.RAN. < 6.0 Normal 0.0-12.0 [facility] Comment on above: Performed By: #### L 3890.6006, L100.0100, L501.0250, L509.8002 #### [facility] [address] [place], [address] UR CREAT 24.20 mg/dL Low 28.00-217.00 [facility] Comment on above: Performed By: #### L 3890.6006, L100.0100, L501.0250, L509.8002 #### [facility] [address] [place], [address] RBC Auto (Bld) [#/Vol]Ordere d By: Catie Krishnan on 12-16-2024 RBC (Bld) [#/Vol] 3.52 10*6/uL Low 4.2-5.4 [facility] Random urine creatinine mariza urement (mass/volume)Ordered By: Catie Krishnan on 12-16-2024 Creatinine Unsp time (U) [Mass/Vol] 24.20 mg/dL Low 28.00-217.00 [facility] Serum Creatinine AND GFRon 0 12-16-2024 Creatinine [Mass/Vol] 0.47 mg/dL Low 0.70-1.20 [facility] Comment on above: Performed By: #### L 3890.6006, L100.0100, L501.0250, L509.8002 #### [facility] [address] [place], [address] ECRCL 172.78 ml/min Normal 50-250 [facility] Comment on above: Performed By: #### L 3890.6006, L100.0100, L501.0250, L509.8002 #### [facility] [address] [place], [address] GFR/1.73 sq M.predicted among non-blacks MDRD (S/P/Bld) [Vol rate/Area] 136 mL/min/{1.73_m2} Normal >60 [facility] Comment on above: Result Comment: mL/m in/1.73m2 CKD-EPI Creatinine Equation (2020) Performed By: #### L 3890.6006, L100.0100, L501.0250, L509.8002 #### [facility] [address] [place], [address] Serum creatinine measurement (mass/volume)Ordered By: Catie Krishnan on 12-16-2024 Creatinine [Mass/Vol] 0.47 mg/dL Low 0.70-1.20 [facility] Serum or plasma alanine villaseñor otransferase (ALT) measurementOrdered By: Catie Krihsnan on 12-16-2024 ALT [Catalytic activity/Vol] 9 U/L <35 [facility] Serum or plasma uric acid me asurement (mass/volume)Ordered By: Catie Krishnan on 12-16-2024 Urate [Mass/Vol] 3.5 mg/dL 2.6-6.0 [facility] Comment on above: The drugs N-Acetylcy steine and Metamizole may falsely depress this assay. Uric Acidon 12-16-2024 URIC 3.5 mg/dL Normal 2.6-6.0 [facility] Comment on above: Result Comment: The drugs N-Acetylcysteine and Metamizole may falsely depress this assay. Performed By: #### L 3890.6006, L100.0100, L501.0250, L509.8002 #### [facility] [address] [place], [address] Urine protein measurement (m ass/volume)Ordered By: Catie Krishnan on 12-16-2024 Protein (U) [Mass/Vol] mg/dL 0.0-12.0 [facility] Urine protein/creatinine mas s ratioOrdered By: Catie Krishnan on 12-16-2024 Protein/Creatinine (U) [Mass ratio] 233 mg/g CRE High 0-200 [facility] White blood cell (WBC) count Ordered By: Catie Krishnan on 12-16-2024 WBC (Bld) [#/Vol] 11.6 10*3/uL High 4.4-11.0 [facility] - Microbiology an d Antimicrobial susceptibilityon 12-11-2024 Rubella virus IgG Ql (S) NR [facility] No Panel Informationon 12-11 [facility] - Chemistry and C hemistry - challengeOrdered By: Catie Krishnan on 11-26-2024 Glucose Ql (U) Negative [facility] - UrinalysisOrder ed By: Catie Krishnan on 11-26-2024 Protein Ql (U) Negative [facility] Strategy Consultant Office Visit Reporton 11-26-2024 Strategy Consultant Office Visit Report [facility] [address], [address] [place] [address] OFFICE VISIT Date of Service: 11/26/24 MR#: [id number] Acct: [id number] Name: LEONOR HAGER Rep #: [id number] : 2000 Provider: Dr. 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 Normal [facility] Absolute lymphocyte countOrd ered By: Yudith Montero on 09-28-2024 Lymphocytes Auto (Unsp spec) [#/Vol] 1.53 10*3/uL 0.83-4.51 [facility] Absolute neutrophil countOrd ered By: Yudith Montero on 09-28-2024 Neutrophils (Bld) [#/Vol] 7.6 10*3/uL 2.0-7.7 [facility] Anion gap in Serum or Plasma Ordered By: Yudith Montero on 09-28-2024 Anion gap [Moles/Vol] 13 mmol/L 5-15 [facility] Automated lymphocyte count a s percentage of total leukocytesOrdered By: Yudith Montero on 09-28-2024 Lymphocytes/100 WBC Auto (Unsp spec) 15.5 % Low 19-41 [facility] BUN/creatinine ratioOrdered By: Yudith Stonerjoy on 09-28-2024 Urea nitrogen/Creatinine [Mass ratio] 11.0 mg/mg 10-20 [facility] Basophil percentageOrdered B y: Yudith Stonerjoy on 09-28-2024 Basophils/100 WBC (Bld) 0.4 % 0-1 [facility] Bilirubin, totalOrdered By: Yudith Stonerjoy on 09-28-2024 Bilirubin [Mass/Vol] 0.83 mg/dL 0.00-1.30 [facility] CBC W/Diff, Automatedon -2024 Absolute Lymph 1.53 X10 3/uL Normal 0.83-4.51 [facility] Comment on above: Performed By: #### L 3890.6006, L100.0100, L501.0250, L509.8002 #### [facility] [address] [place], [address] Absolute Neut 7.6 X10 3/uL Normal 2.0-7.7 [facility] Comment on above: Performed By: #### L 3890.6006, L100.0100, L501.0250, L509.8002 #### [facility] [address] [place], [address] Basophils/100 WBC (Bld) 0.4 % Normal 0-1 [facility] Comment on above: Performed By: #### L 3890.6006, L100.0100, L501.0250, L509.8002 #### [facility] [address] [place], [address] Eosinophils/100 WBC (Bld) 1.5 % Normal 0-5 [facility] Comment on above: Performed By: #### L 3890.6006, L100.0100, L501.0250, L509.8002 #### [facility] [address] [place], [address] Erythrocyte distribution width (RBC) [Ratio] 13.3 % Normal 11.6-14.6 [facility] Comment on above: Performed By: #### L 3890.6006, L100.0100, L501.0250, L509.8002 #### [facility] [address] [place], [address] Hematocrit (Bld) [Volume fraction] 37.6 % Normal 37-47 [facility] Comment on above: Performed By: #### L 3890.6006, L100.0100, L501.0250, L509.8002 #### [facility] [address] [place], [address] Hemoglobin (Bld) [Mass/Vol] 12.5 g/dL Normal 12.0-15.0 [facility] Comment on above: Performed By: #### L 3890.6006, L100.0100, L501.0250, L509.8002 #### [facility] [address] [place], [address] IG% 0.800 Normal 0.0-0.9 [facility] Comment on above: Result Comment: IG% - Immature Granulocytes (promyelocytes, myelocytes and metamyelocytes) > 1% indicates that a LEFT SHIFT is Present. Performed By: #### L 3890.6006, L100.0100, L501.0250, L509.8002 #### [facility] [address] [place], [address] Lymphocytes/100 WBC (Bld) 15.5 % Low 19-41 [facility] Comment on above: Performed By: #### L 3890.6006, L100.0100, L501.0250, L509.8002 #### [facility] [address] [place], [address] MCH (RBC) [Entitic mass] 28.7 pg Normal 27.0-32.0 [facility] Comment on above: Performed By: #### L 3890.6006, L100.0100, L501.0250, L509.8002 #### [facility] [address] [place], [address] MCHC (RBC) [Mass/Vol] 33.2 g/dL Normal 32-36 [facility] Comment on above: Performed By: #### L 3890.6006, L100.0100, L501.0250, L509.8002 #### [facility] [address] [place], [address] MCV (RBC) [Entitic vol] 86.4 fL Normal 81-99 [facility] Comment on above: Performed By: #### L 3890.6006, L100.0100, L501.0250, L509.8002 #### [facility] [address] [place], [address] Monocytes/100 WBC (Bld) 5.0 % Normal 0-10 [facility] Comment on above: Performed By: #### L 3890.6006, L100.0100, L501.0250, L509.8002 #### [facility] [address] [place], [address] Neutrophils/100 WBC (Bld) 76.8 % High 47-70 [facility] Comment on above: Performed By: #### L 3890.6006, L100.0100, L501.0250, L509.8002 #### [facility] [address] [place], [address] Nucleated RBC (Bld) [#/Vol] 0 10*3/uL Normal 0-5 [facility] Comment on above: Performed By: #### L 3890.6006, L100.0100, L501.0250, L509.8002 #### [facility] [address] [place], [address] Platelet mean volume (Bld) [Entitic vol] 9.8 fL Normal 6.2-12.0 [facility] Comment on above: Performed By: #### L 3890.6006, L100.0100, L501.0250, L509.8002 #### [facility] [address] [place], [address] Platelets (Bld) [#/Vol] 305 10*3/uL Normal 150-450 [facility] Comment on above: Performed By: #### L 3890.6006, L100.0100, L501.0250, L509.8002 #### [facility] [address] [place], [address] RBC (Bld) [#/Vol] 4.35 10*6/uL Normal 4.2-5.4 [facility] Comment on above: Performed By: #### L 3890.6006, L100.0100, L501.0250, L509.8002 #### [facility] [address] [place], [address] RDW SD 41.6 fl Normal 35.1-43.9 [facility] Comment on above: Performed By: #### L 3890.6006, L100.0100, L501.0250, L509.8002 #### [facility] [address] [place], [address] WBC (Bld) [#/Vol] 9.9 10*3/uL Normal 4.4-11.0 [facility] Comment on above: Performed By: #### L 3890.6006, L100.0100, L501.0250, L509.8002 #### [facility] [address] [place], [address] Carbon dioxide, total [Moles /volume] in Central venous bloodOrdered By: Yudith Montero on 09-28-2024 CO2 [Moles/Vol] 20.2 mmol/L Low 21.0-32.0 [facility] Chloride assayOrdered By: Leonard silvinonegin Kylah on 09-28-2024 Chloride [Moles/Vol] 103 mmol/L 98-108 [facility] Comprehensive Metabolic Prof ilon 09-28-2024 Albumin [Mass/Vol] 4.3 g/dL Normal 3.5-5.0 [facility] Comment on above: Performed By: #### L 3890.6006, L100.0100, L501.0250, L509.8002 #### [facility] [address] [place], [address] Albumin/Globulin [Mass ratio] 1.4 {ratio} Normal 0.9-2.4 [facility] Comment on above: Performed By: #### L 3890.6006, L100.0100, L501.0250, L509.8002 #### [facility] [address] [place], [address] ALK PHOS 48 U/L Normal 35-104 [facility] Comment on above: Performed By: #### L 3890.6006, L100.0100, L501.0250, L509.8002 #### [facility] [address] [place], [address] ALT [Catalytic activity/Vol] 9 U/L Normal <=34 [facility] Comment on above: Performed By: #### L 3890.6006, L100.0100, L501.0250, L509.8002 #### [facility] [address] [place], [address] AST [Catalytic activity/Vol] 14 U/L Normal <=31 [facility] Comment on above: Performed By: #### L 3890.6006, L100.0100, L501.0250, L509.8002 #### [facility] [address] [place], [address] Bilirubin [Mass/Vol] 0.83 mg/dL Normal 0.00-1.30 [facility] Comment on above: Performed By: #### L 3890.6006, L100.0100, L501.0250, L509.8002 #### [facility] [address] [place], [address] BUN/CRE 11.0 RATIO Normal 10-20 [facility] Comment on above: Performed By: #### L 3890.6006, L100.0100, L501.0250, L509.8002 #### [facility] [address] [place], [address] Calcium [Mass/Vol] 9.2 mg/dL Normal 7.6-11.0 [facility] Comment on above: Performed By: #### L 3890.6006, L100.0100, L501.0250, L509.8002 #### [facility] [address] [place], [address] Chloride [Moles/Vol] 103 mmol/L Normal 98-108 [facility] Comment on above: Performed By: #### L 3890.6006, L100.0100, L501.0250, L509.8002 #### [facility] [address] [place], [address] CO2 [Moles/Vol] 20.2 mmol/L Low 21.0-32.0 [facility] Comment on above: Performed By: #### L 3890.6006, L100.0100, L501.0250, L509.8002 #### [facility] [address] [place], [address] Creatinine [Mass/Vol] 0.51 mg/dL Low 0.70-1.20 [facility] Comment on above: Performed By: #### L 3890.6006, L100.0100, L501.0250, L509.8002 #### [facility] [address] [place], [address] GAP 13 Normal 5-15 [facility] Comment on above: Performed By: #### L 3890.6006, L100.0100, L501.0250, L509.8002 #### [facility] [address] [place], [address] GFR/1.73 sq M.predicted among non-blacks MDRD (S/P/Bld) [Vol rate/Area] 135 mL/min/{1.73_m2} Normal >60 [facility] Comment on above: Result Comment: mL/m in/1.73m2 CKD-EPI Creatinine Equation (2020) Performed By: #### L 3890.6006, L100.0100, L501.0250, L509.8002 #### [facility] [address] [place], [address] Globulin (S) [Mass/Vol] 3.0 g/dL Normal 2.2-4.2 [facility] Comment on above: Performed By: #### L 3890.6006, L100.0100, L501.0250, L509.8002 #### [facility] [address] [place], [address] Glucose [Mass/Vol] 79 mg/dL Normal 70-99 [facility] Comment on above: Performed By: #### L 3890.6006, L100.0100, L501.0250, L509.8002 #### [facility] [address] [place], [address] Potassium [Moles/Vol] 4.0 mmol/L Normal 3.3-5.1 [facility] Comment on above: Performed By: #### L 3890.6006, L100.0100, L501.0250, L509.8002 #### [facility] [address] [place], [address] Sodium [Moles/Vol] 136 mmol/L Normal 133-145 [facility] Comment on above: Performed By: #### L 3890.6006, L100.0100, L501.0250, L509.8002 #### [facility] [address] [place], [address] T PROT 7.4 g/dL Normal 5.9-8.4 [facility] Comment on above: Performed By: #### L 3890.6006, L100.0100, L501.0250, L509.8002 #### [facility] [address] [place], [address] Urea nitrogen [Mass/Vol] 6 mg/dL Normal 4-19 [facility] Comment on above: Performed By: #### L 3890.6006, L100.0100, L501.0250, L509.8002 #### [facility] [address] [place], [address] Eosinophil percentageOrdered By: Yudith Montero on 09-28-2024 Eosinophils/100 WBC (Bld) 1.5 % 0-5 [facility] Erythrocyte distribution wid th ratioOrdered By: Yudith Montero on 09-28-2024 Erythrocyte distribution width (RBC) [Ratio] 13.3 % 11.6-14.6 [facility] Erythrocyte distribution wid th standard deviationOrdered By: Yudith Montero on 09-28-2024 Erythrocyte distribution width (RBC) [Ratio] 41.6 fl 35.1-43.9 [facility] Glomerular filtration rate ( GFR) estimation/1.73 sq m using serum, plasma, or whole bOrdered By: Yudith Montero on 09-28-2024 GFR/1.73 sq M.predicted among non-blacks MDRD (S/P/Bld) [Vol rate/Area] 135 mL/min/{1.73_m2} >60 [facility] Comment on above: mL/min/1.73m2 CKD-EP I Creatinine Equation (2020) HIVon 09-28-2024 HIV Non-Reactive Normal Nonreactive [facility] Comment on above: Result Comment: Non- Reactive Reactive Repeatedly reactive samples must be confirmed according to CDC recommended confirmatory algorithms. The subresults for either HIVAG or AHIV can be used as an aid in the selection of the confirmation algorithm for reactive samples. Send out specimens with Reactive results to [facility] for confirmation. Order the HIV antibody detection and differentiation: lc#[id number] Performed By: #### L 3890.6006, L100.0100, L501.0250, L509.8002 #### [facility] [address] [place], [address] Hematocrit Auto (Bld) [Volum e fraction]Ordered By: Yudith Montero on 09-28-2024 Hematocrit (Bld) [Volume fraction] 37.6 % 37-47 [facility] Hemoglobin measurementOrdere d By: Yudith Montero on 09-28-2024 Hemoglobin (Bld) [Mass/Vol] 12.5 g/dL 12.0-15.0 [facility] Hepatitis C Antibodyon 09-28 Hepatitis C Ab Non-Reactive Normal Nonreactive [facility] Comment on above: Result Comment: Reac tive: Presumptive evidence of antibodies to HCV. Follow CDC recommendations for supplemental testing. Non-Reactive: Antibodies to HCV were not detected; does not exclude the possibility of exposure to HCV Reactive Results are presumptive evidence of antibodies to HCV. Follow CDC recommendations for supplemental testing. Order confirmation testing: HCV Quant by PCR testing - HCVPCR #[id number] Non Reactive: < 0.8 Equivocal: >/= 0.8 to < 1.0 Reactive: >/= 1.0 The CDC requires that a reactive/equivocal HCV antibody result be sent out for confirmation. HCV Quant by PCR testing. Performed By: #### L 3890.6006, L100.0100, L501.0250, L509.8002 #### [facility] [address] [place], [address] Immature granulocytes/100 WB C Auto (Bld)Ordered By: Yudith Montero on 09-28-2024 Immature granulocytes/100 WBC (Bld) 0.800 % 0.0-0.9 [facility] Comment on above: IG% - Immature Granu locytes (promyelocytes, myelocytes and metamyelocytes) > 1% indicates that a LEFT SHIFT is Present. L3890.6102on 09-28-2024 HEP B Surf Ag Non-Reactive Normal Nonreactive [facility] Comment on above: Result Comment: Reac tive: Presumptive evidence of HBV. Repeatedly reactive samples must be confirmed using a neutralization test ([employer] HBsAg Confirmatory Test) Non-Reactive: HBsAg not detected; does not exclude the possibility of exposure to HBV Performed By: #### L 3890.6006, L100.0100, L501.0250, L509.8002 #### [facility] [address] [place], [place], [address] L509.4006on 09-28-2024 Rubella IgG REAC Normal Nonreactive [facility] Comment on above: Result Comment: Anti body Result: Interpretation Non-Reactive: Non-Immune Reactive: Immune The following results were obtained with the [employer] Rubella IgG assay. Results from assays of other manufacturers cannot be used interchangeably. Performed By: #### L 3890.6006, L100.0100, L501.0250, L509.8002 #### [facility] [address] [place], [place], [id number] Laboratory - Chemistry and C hemistry - challengeOrdered By: Yudith Montero on 09-28-2024 AST [Catalytic activity/Vol] 14 U/L <32 [facility] - Microbiology an d Antimicrobial susceptibilityOrdered By: Yudith Montero on 09-28-2024 HBV surface Ag Ql (S) Non-Reactive Nonreactive [facility] Comment on above: Reactive: Presumptiv e evidence of HBV. Repeatedly reactive samples must be confirmed using a neutralization test ([employer] HBsAg Confirmatory Test)Non-Reactive: HBsAg not detected; does not exclude the possibility of exposure to HBV MCV (mean corpuscular volume ) determinationOrdered By: Yudith Montero on 09-28-2024 MCV (RBC) [Entitic vol] 86.4 fL 81-99 [facility] Mean corpuscular hemoglobin (MCH) determinationOrdered By: Yudith Montero on 09-28-2024 MCH (RBC) [Entitic mass] 28.7 pg 27.0-32.0 [facility] Mean corpuscular hemoglobin concentration (MCHC) determinationOrdered By: Yudith Montero on 09-28-2024 MCHC (RBC) [Mass/Vol] 33.2 g/dL 32-36 [facility] Mean platelet volume determi nationOrdered By: Yudith Montero on 09-28-2024 Platelet mean volume (Bld) [Entitic vol] 9.8 fL 6.2-12.0 [facility] Monocyte percentageOrdered B y: Yudith Montero on 09-28-2024 Monocytes/100 WBC (Bld) 5.0 % 0-10 [facility] NATERAon 09-28-2024 MAHENDRA SEE SCANNED REPORT Normal [facility] Comment on above: Performed By: #### L 3890.6006, L100.0100, L501.0250, L509.8002 #### [facility] [place], [address] Neutrophil percentageOrdered By: Yudith Montero on 09-28-2024 Neutrophils/100 WBC (Bld) 76.8 % High 47-70 [facility] No Panel InformationOrdered By: Yudith Montero on 09-28-2024 HIV (1&2) Antibody Non-Reactive Nonreactive [facility] Comment on above: Non-ReactiveReactive Repeatedly reactive samples must be confirmed according to CDC recommended confirmatory algorithms. The subresults for either HIVAG or AHIV can be used as an aid in the selection of the confirmation algorithm for reactive samples.Send out specimens with Reactive results to [facility] for confirmation.Order the HIV antibody detection and differentiation: #[id number] Nucleated red blood cell per centageOrdered By: Yudith Montero on 09-28-2024 Nucleated RBC/100 WBC (Bld) [Ratio] 0 % 0-5 [facility] Platelet countOrdered By: Leonard Montero on 09-28-2024 Platelets (Bld) [#/Vol] 305 10*3/uL 150-450 [facility] Potassium measurement (mass/ volume)Ordered By: Yudith Montero on 09-28-2024 Potassium (Unsp spec) [Mass/Vol] 4.0 mmol/L 3.3-5.1 [facility] RBC Auto (Bld) [#/Vol]Ordere d By: Yudith Montero on 09-28-2024 RBC (Bld) [#/Vol] 4.35 10*6/uL 4.2-5.4 [facility] Serum creatinine measurement (mass/volume)Ordered By: Yudith Montero on 09-28-2024 Creatinine [Mass/Vol] 0.51 mg/dL Low 0.70-1.20 [facility] Serum globulin measurementOr dered By: Yudith Montero on 09-28-2024 Globulin (S) [Mass/Vol] 3.0 g/dL 2.2-4.2 [facility] Serum glucose measurement (m ass/volume)Ordered By: Yudith Montero on 09-28-2024 Glucose [Mass/Vol] 79 mg/dL 70-99 [facility] Serum or plasma alanine villaseñor otransferase (ALT) measurementOrdered By: Yudith Montero on 09-28-2024 ALT [Catalytic activity/Vol] 9 U/L <35 [facility] Serum or plasma albumin mariza urement (mass/volume)Ordered By: Yudith Montero on 09-28-2024 Albumin [Mass/Vol] 4.3 g/dL 3.5-5.0 [facility] Serum or plasma albumin/glob ulin mass ratioOrdered By: Yudith Montero on 09-28-2024 Albumin/Globulin [Mass ratio] 1.4 {ratio} 0.9-2.4 [facility] Serum or plasma alkaline vicky sphatase measurementOrdered By: Yudith Montero on 09-28-2024 ALP [Catalytic activity/Vol] 48 U/L 35-104 [facility] Serum or plasma calcium mariza urement (mass/volume)Ordered By: Yudith Montero on 09-28-2024 Calcium [Mass/Vol] 9.2 mg/dL 7.6-11.0 [facility] Serum or plasma urea nitroge n measurement (mass/volume)Ordered By: Yudith Montero on 09-28-2024 Urea nitrogen [Mass/Vol] 6 mg/dL 4-19 [facility] Sodium levelOrdered By: Rossy Montero on 09-28-2024 Sodium [Moles/Vol] 136 mmol/L 133-145 [facility] Syphilis Antibodieson 2024 Syphilis Abs Non-Reactive Normal Nonreactive [facility] Comment on above: Performed By: #### L 3890.6006, L100.0100, L501.0250, L509.8002 #### [facility] [address] [place], [place], [address] Total proteinOrdered By: Jane Montero on 09-28-2024 Protein [Mass/Vol] 7.4 g/dL 5.9-8.4 [facility] Type AND Screenon 09-28-2024 Ab SCREEN GEL Negative Normal [facility] Comment on above: Order Comment: PN Performed By: #### L 3890.6006, L100.0100, L501.0250, L509.8002 #### [facility] [address] [place], [place], [address] White blood cell (WBC) count Ordered By: Yudith Montero on 09-28-2024 WBC (Bld) [#/Vol] 9.9 10*3/uL 4.4-11.0 [facility] - Chemistry and C hemistry - challengeOrdered By: Butch Falcon on 09-27-2024 Glucose Ql (U) Negative [facility] - UrinalysisOrder ed By: Butch Falcon on 09-27-2024 Protein Ql (U) Negative [facility] Strategy Consultant Office Visit Reporton 09-27-2024 Strategy Consultant Office Visit Report [address], [address] [place] [address] OFFICE VISIT Date of Service: 09/27/24 MR#: [id number] Acct: [id number] Name: LEONOR [facility]AGER Rep #: [id number] : 2000 Provider: LOTTIE winters Age/Sex: 23/F [place] [facility] [place]: Signed Intake Vital Signs 08/06/24 10:46 08/27/24 11:24 09/27/24 14:04 Height 5 ft 6 in 5 ft 6 in 5 ft 6 in Weight: 134 lb 2 oz BMI 21.6 BP 119/86 H Intake Visit Reasons: 13wk ob Chief Complaint: 13 Week OB Pointer Helper Required: No Is patient in pain?: No [...] current occupational status: 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 Normal [facility] PAP I-G w/rfx hrHPV-Aptimaon 08-31-2024 ADEQ Comment Normal . [facility] Comment on above: Order Comment: Speci men Comment: [id number] Comment: No. of containers..01 ThinPrep Vial Result Comment: Sati sfactory for evaluation. Endocervical and/or squamous metaplastic cells (endocervical component) are present. Performed By: #### L 500.4050, L501.0900 #### [facility] [address] [place], [address] COMM . Normal . [facility] Comment on above: Order Comment: Speci men Comment: [id number] Comment: No. of containers..01 ThinPrep Vial Performed By: #### L 500.4050, L501.0900 #### [facility] [address] [place], [address] COMMENT Comment Normal . [facility] Comment on above: Order Comment: Speci men Comment: [id number] Comment: No. of containers..01 ThinPrep Vial Result Comment: This liquid based ThinPrep(R) pap test was screened with the use of an image guided system. Performed By: #### L 500.4050, L501.0900 #### [facility] [address] [place], [address] DIAG Comment Normal . [facility] Comment on above: Order Comment: Speci men Comment: [id number] Comment: No. of containers..01 ThinPrep Vial Result Comment: NEGA TIVE FOR INTRAEPITHELIAL LESION OR MALIGNANCY. Performed By: #### L 500.4050, L501.0900 #### [facility] [address] [place], [address] HPV RFLX Comment Normal . [facility] Comment on above: Order Comment: Speci men Comment: [id number] Comment: No. of containers..01 ThinPrep Vial Result Comment: The HPV DNA reflex criteria were not met with this specimen result therefore, no HPV testing was performed. Performed at: [address] [id number] Laminate Floor Installer: Suma Alegria MD, Phone: [phone] Performed By: #### L 500.4050, L501.0900 #### [facility] [address] [place], [address] PAPSMR Comment Normal . [facility] Comment on above: Order Comment: Speci men Comment: [id number] Comment: No. of containers..01 ThinPrep Vial Result Comment: The Pap smear is a screening test designed to aid in the detection of premalignant and malignant conditions of the uterine cervix. It is not a diagnostic procedure and should not be used as the sole means of detecting cervical cancer. Both false-positive and false-negative reports do occur. Performed By: #### L 500.4050, L501.0900 #### [facility] [address] [place], [address] PERFORM Comment Normal . [facility] Comment on above: Order Comment: Speci men Comment: [id number] Comment: No. of containers..01 ThinPrep Vial Result Comment: Nel Johnson, Pivot Maker (ASCP) Performed By: #### L 500.4050, L501.0900 #### [facility] [address] [place], [address] Chlamydia/GC ENRIQUE aptimaon CHLAMY,NUC ACID Negative Normal Negative [facility] Comment on above: Performed By: #### L 500.4050, L501.0900 #### [facility] [address] [place], [address] GC BY NUC ACID Negative Normal Negative [facility] Comment on above: Result Comment: Perf ormed at: =G - [facility] [address] [place] [id number] Laminate Floor Installer: Suma Alegria MD, Phone: [phone] Performed By: #### L 500.4050, L501.0900 #### [facility] [address] [place], [address] Urine Cultureon 08-28-2024 URC Culture exhibits no growth. Normal [facility] Comment on above: Performed By: #### L 501.0900, L7400.0353, L7000.1800, M100.2200 #### [facility] [address] [place], [address] Cervical or vagninal specime n microscopic examination by cytology stain (reported asOrdered By: Yudith Montero on 08-27-2024 Cytology report Cyto stain Doc (Cvx/Vag) Comment . [facility] Comment on above: The Pap smear is [...] rRNA ENRIQUE+probe Ql (Unsp spec) Negative Negative [facility] - CytologyOrdered By: Yudith Montero on 08-27-2024 Pivot Maker Cyto stain Nom (Cvx/Vag) [ID] Comment . [facility] Comment on above: Joan Johnson, Cytolog ist (ASCP) Laboratory - Miscellaneous t estsOrdered By: Yudith Montero on 08-27-2024 Service comment (Unsp spec) [Interp] . . [facility] Neisseria gonorrhoeae nuclei c acid detection by amplified probe techniqueOrdered By: Yudith Montero on 08-27-2024 N. gonorrhoeae DNA ENRIQUE+probe Ql (Unsp spec) Negative Negative [facility] Comment on above: Performed at: =[address] [id number] Director: Suma Alegria MD, Phone: [phone] No Panel InformationOrdered By: Yudith Montero on 08-27-2024 Pap Smear Specimen Adequacy Comment . [facility] Comment on above: Satisfactory for tk luation. Endocervical and/or squamous metaplasticcells (endocervical component) are present. Strategy Consultant Office Visit Reporton 08-27-2024 Strategy Consultant Office Visit Report [facility] [address], [address] [place] [address] OFFICE VISIT Date of Service: 08/27/24 MR#: [id number] Acct: [id number] Name: LEONOR HAGER Rep #: [id number] : 2000 Provider: Dr. 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 Normal [facility] Protein+Creatinine Ratio,Uri neon 08-27-2024 PROT:CRE RATIO 68 mg/g CRE Normal 0-200 [facility] Comment on above: Performed By: #### L 501.0900, L7400.0353, L7000.1800, M100.2200 #### [facility] [address] [place], [address] Protein (U) [Mass/Vol] 9.6 mg/dL Normal 0.0-12.0 [facility] Comment on above: Performed By: #### L 501.0900, L7400.0353, L7000.1800, M100.2200 #### [facility] [address] [place], [address] UR CREAT 141.00 mg/dL Normal 28.00-217.00 [facility] Comment on above: Performed By: #### L 501.0900, L7400.0353, L7000.1800, M100.2200 #### [facility] [address] [place], [address] Random urine creatinine mariza urement (mass/volume)Ordered By: Yudith Montero on 08-27-2024 Creatinine Unsp time (U) [Mass/Vol] 141.00 mg/dL 28.00-217.00 [facility] Urine cultureOrdered By: Jane Montero on 08-27-2024 Bacteria identified Cx Nom (U) Culture exhibits no growth. [facility] Urine protein measurement (m ass/volume)Ordered By: Yudith Montero on 08-27-2024 Protein (U) [Mass/Vol] 9.6 mg/dL 0.0-12.0 [facility] Urine protein/creatinine mas s ratioOrdered By: Yudith Montero on 08-27-2024 Protein/Creatinine (U) [Mass ratio] 68 mg/g CRE 0-200 [facility] - Chemistry and C hemistry - challengeOrdered By: Mally Maldonado on 08-13-2024 HCG ( test) Ql (U) Positive [facility] Office Visit Reporton 2024 Office Visit Report [facility] [address] [place] [address] OFFICE VISIT Date of Service: 08/13/24 MR#: [id number] Acct: [id number] Patient: LEONOR HAGER Rep #: [id number] : 2000 Provider: UVALDO Medeiros ams Age/Sex: 23/F Location: [facility] Status: Signed Intake Vital Signs 08/06/24 10:46 [...] unspecified, unspecified trimester HIV 08/27/24 Dr. Yudith Harper DO O09.90 - Supervision of high risk , unspecified, unspecified trimester Comprehensive Metabolic Profil 08/27/24 Dr. Yudith Harper DO O09.90 - [...] Moseley Signature: Date (if applicable) CC: Normal [facility] Strategy Consultant Office Visit Reporton 08-06-2024 Strategy Consultant Office Visit Report [facility] [address], [address] [place] [address] OFFICE VISIT Date of Service: 08/06/24 MR#: [id number] Acct: [id number] Name: LEONOR HAGER Rep #: [id number] : 2000 Provider: UVALDO Medeiros ams Age/Sex: 23/F Location: [facility] [place] Status: Signed Intake Vital Signs 08/06/24 10:46 Height 5 ft 6 in Weight: 132 lb 2 oz BMI 21.3 BP 136/88 H Intake Visit Reasons: ER fu for elevated BP per KW Chief Complaint: ER FU, Elevated BP Pointer Helper Required: No Is patient in pain?: No Allergies latex Allergy (Mild, Verified 08/06/24 10:46) Rash Medications ???Medication ???Instructions ???Recorded ???Confirmed ???Type NK 08/06/24 08/06/24 History PFSH Medical History History of migraine headaches Family History Father Asthma Mother Bleeding disorder Blood clot in abdominal vein Hypertension Grandmother Breast cancer Grandfather Hypertension Myocardial infarction, Onset Age: 42 and at age 61 Social History current occupational status: student 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 Was in [facility] ER on wednesday 08/02 for elevated bp. Newly -about 5 weeks and was sent from the school nurse (alternative education teacher) for BPs in the 150/90s. Was [...] Moseley Signature: Date (if applicable) CC: Normal [facility] CBC + DIFFon 08-02-2024 Baso # 0.04 x10EE3/UL Normal 0.00 - 0.10 [facility] Comment on above: Performed By: #### 2 08183 ####[place] [address] Basophils/100 WBC (Bld) 0.5 % Normal 0.0 - 2.0 [facility] Comment on above: Performed By: #### 2 56097 ####[place] [id number] CBC + DIFF Normal [facility] Comment on above: Result Comment: CBC- COMPLETE BLOOD COUNT Performed By: #### 2 37981 ####[place] [address] EO # 0.12 x10EE3/UL Normal 0.00 - 0.50 [facility] Comment on above: Performed By: #### 2 47799 ####[place] [address] Eosinophils/100 WBC (Bld) 1.5 % Normal 0.0 - 7.0 [facility] Comment on above: Performed By: #### 2 75886 ####[place] [address] Erythrocyte distribution width (RBC) [Ratio] 14.0 % Normal 12.0 - 15.6 [facility] Comment on above: Performed By: #### 2 20661 ####[place] [address] Hematocrit (Bld) [Volume fraction] 37.6 % Normal 34.0 - 46.0 [facility] Comment on above: Performed By: #### 2 22624 ####[place] [address] Hemoglobin (Bld) [Mass/Vol] 13.0 g/dL Normal 12.0 - 16.0 [facility] Comment on above: Performed By: #### 2 79054 ####[place] [id number] Lymph # 1.17 x10EE3/UL Normal 0.80 - 2.80 [facility] Comment on above: Performed By: #### 2 21687 ####[place] [address] Lymphocytes/100 WBC (Bld) 15.2 % Low 20.0 - 45.0 [facility] Comment on above: Performed By: #### 2 49582 ####[address],[place] [address] MANUAL DIFF N/A Normal [facility] Comment on above: Performed By: #### 2 94950 ####[facility],[address] [place] [address] MCH (RBC) [Entitic mass] 30 pg Normal 27 - 33 [facility] Comment on above: Performed By: #### 2 59119 ####[facility],[address] [place] [address] MCHC 35 X10 3 Normal 32 - 36 [facility] Comment on above: Performed By: #### 2 70618 ####[facility],[address] [place] [address] MCV (RBC) [Entitic vol] 85 fL Normal 80 - 99 [facility] Comment on above: Performed By: #### 2 13209 ####[facility],[address] [place] [address] [place] # 0.45 x10EE3/UL Normal 0.20 - 1.00 [facility] Comment on above: Performed By: #### 2 09841 ####[facility],[address] [place] [address] MONOS % 5.9 % Normal 0.0 - 10.0 [facility] Comment on above: Performed By: #### 2 49643 ####[facility],[address] [place] [address] Morphology Viraj (Bld) [Interp] N/A Normal [facility] Comment on above: Performed By: #### 2 37331 ####[place] [address] Neut # 5.91 x10EE3/UL Normal 1.50 - 7.10 [facility] Comment on above: Performed By: #### 2 59618 ####[place] [address] Neutrophils/100 WBC (Bld) 76.9 % High 46.0 - 76.0 [facility] Comment on above: Performed By: #### 2 23233 ####[facility],[address] [place] [address] 44515 PLATELET 355 x10EE3/UL Normal 150 - 450 [facility] Comment on above: Performed By: #### 2 40410 ####[facility],[address] [place] [address] 56916 Platelet mean volume (Bld) [Entitic vol] 7.5 fL Normal 6.6 - 10.5 [facility] Comment on above: Result Comment: AUTO MATED DIFFERENTIAL Performed By: #### 2 97155 ####[facility],[address] [place] [address] RBC 4.40 x 10EE6/UL Normal 4.10 - 5.30 [facility] Comment on above: Performed By: #### 2 39853 ####[facility],[address] [place], [place] [address] WBC 7.7 x 10EE3/UL Normal 4.5 - 10.8 [facility] Comment on above: Performed By: #### 2 70717 ####[facility],[address] [place] [address] 52500 CMP with eGFRon 08-02-2024 AGE 23 years Normal [facility] Comment on above: Performed By: #### 2 99142 #### [facility],[address] [place] [address] 43779 Albumin [Mass/Vol] 4.0 g/dL Normal 3.4 - 5.0 [facility] Comment on above: Performed By: #### 2 89563 #### [facility],[address] [place] [address] 74312 Albumin/Globulin [Mass ratio] 1.1 {ratio} Normal 0.9 - 1.6 [facility] Comment on above: Performed By: #### 2 28872 #### [facility],[address] [place] [address] 56988 ALK PHOS 51 U/L Normal 46 - 116 [facility] Comment on above: Performed By: #### 2 69881 #### [facility],[address] [place] [address] 85410 ALT [Catalytic activity/Vol] 18 U/L Normal 16 - 63 [facility] Comment on above: Performed By: #### 2 82107 #### [facility],[address] [place] [address] 09672 Anion gap [Moles/Vol] 12 mmol/L Normal 10 - 20 [facility] Comment on above: Performed By: #### 2 24045 #### [facility],[address] [place] [address] 67500 AST [Catalytic activity/Vol] 13 U/L Normal 13 - 39 [facility] Comment on above: Performed By: #### 2 19180 #### [facility],[address] [place] [address] 81940 B/C RATIO 21 ratio Normal 0 - 30 [facility] Comment on above: Performed By: #### 2 56106 #### [facility],[address] [place] [address] 38951 Bilirubin [Mass/Vol] 1.1 mg/dL High 0.2 - 1.0 [facility] Comment on above: Performed By: #### 2 61261 #### [facility],[address] [place] [address] 54524 Calcium [Mass/Vol] 8.6 mg/dL Normal 8.5 - 10.1 [facility] Comment on above: Performed By: #### 2 00182 #### [facility],[address] [place] [address] 17476 Chloride [Moles/Vol] 105 mmol/L Normal 98 - 107 [facility] Comment on above: Performed By: #### 2 05949 #### [facility],[address] [place] [address] 16300 CMP with eGFR Normal [facility] Comment on above: Result Comment: COMP REHENSIVE METABOLIC PANEL Performed By: #### 2 65174 #### [facility],[address] [place] [address] 72241 CO2 [Moles/Vol] 26.9 mmol/L Normal 21.0 - 32.0 [facility] Comment on above: Performed By: #### 2 16958 #### [facility],[address] [place], [place] [address] Creatinine [Mass/Vol] 0.58 mg/dL Normal 0.55 - 1.02 [facility] Comment on above: Performed By: #### 2 43867 #### [facility],[address] [place], [place] [address] GFR/1.73 sq M.predicted among non-blacks MDRD (S/P/Bld) [Vol rate/Area] mL/min/{1.73_m2} Normal 60 - 999 [facility] Comment on above: Performed By: #### 2 07306 #### [facility],[address] [place], [place] [address] Result Comment: ACCO RDING TO THE NATIONAL KIDNEY DISEASE EDUCATION PROGRAM(NKDE), A NORMAL eGFR IS A VALUE GREATER THAN OR EQUAL TO 60 ML/MIN/1.73 SQ METERS. CHRONIC KIDNEY DISEASE: <60mL/MIN/1.73 SQ METERS KIDNEY FAILURE: <15mL/MIN/1.73 SQ METERS THIS TEST SHOULD ONLY BE USED FOR PATIENTS 18 YEARS OF AGE AND OLDER. Globulin (S) [Mass/Vol] 3.6 g/dL Normal 1.5 - 3.8 [facility] Comment on above: Performed By: #### 2 80676 #### [facility],[address] [place] [address] 10558 Glucose [Mass/Vol] 88 mg/dL Normal 74 - 106 [facility] Comment on above: Performed By: #### 2 76719 #### [facility],[address] [place] [address] 86699 Potassium [Moles/Vol] 3.8 mmol/L Normal 3.5 - 5.1 [facility] Comment on above: Performed By: #### 2 22520 #### [facility],[address] [place] [address] 45520 Protein [Mass/Vol] 7.6 g/dL Normal 6.4 - 8.2 [facility] Comment on above: Performed By: #### 2 90220 #### [facility],[address] [place] [address] 87002 Sodium [Moles/Vol] 140 mmol/L Normal 136 - 145 [facility] Comment on above: Performed By: #### 2 07587 #### [facility],[address] [place] [address] 61531 Urea nitrogen [Mass/Vol] 12 mg/dL Normal 7 - 18 [facility] Comment on above: Performed By: #### 2 97435 #### [facility],[address] [place] [address] 56059 D-DIMER, QUANTITATIVEon 04-0 D-DIMER QUANT <200 Normal 0 - 230 [facility] Comment on above: Performed By: #### 2 96136 ####[facility],[address] [place] [address] 80104 D-DIMER, QUANTITATIVE Normal [facility] Comment on above: Result Comment: BHUPENDRA T D-DIMER Performed By: #### 2 19113 ####[facility],[address] [place] [address] 09661 ED MED ADMINISTRATION DETAIL on 08-02-2024 ED MED ADMINISTRATION DETAIL Towel Stretcher Medication Administration Record [address] [address] [id number] 08/02/2024 Patient: LEONOR HAGER Sex: Female : 2000 Age: 23y MEASUREMENTS: Wt: 55.8 kg, Ht/Ezekiel: 66.0 in, BMI: 19.85 ALLERGIES: latex Medication Ordered Medication Administration Date/Time 1 of 1 Normal [facility] ED NURSES CLINICAL NOTEon ED NURSES CLINICAL NOTE Nurse Narrative Nurse Clinical Narrative [facility] [address] [place] [address] [id number] 08/02/2024 09:04:00 Patient: LEONOR HAGER Sex: Female [...] Cassandra Blanchard R.N. 09:08/02/24. Preferred Pharmacy: [facility]. -- 09:34 08/02/24 EDT Cassandra Blanchard R.N. [...] disease exposure. ABUSE ASSESSMENT: The patient answered yes to the question(s) Do you feel safe in your home? and no to the question(s) Are you afraid to go home?. No report of abuse. SELF HARM ASSESSMENT: Self harm assessment was performed. The patient answered no to the question(s) Have you recently felt down, depressed, or hopeless? and Do you have thoughts of harming or killing yourself?. FALL RISK ASSESSMENT: Fall risk assessment completed. No risk factors identified. -- 09:08/02/24 EDT Cassandra Blanchard R.N. 2 of 4 Nurse Narrative 09:08/02/24. PAST MEDICAL HX: LNMP: (June 29 2024). -- 09:36 08/02/24 EDT Cassandra Blanchard R.N. Interventions 09:08/02/24. Identification [...] 08/02/24 JESSICA Rai R.N. NURSING PROGRESS NOTES 09:36 08/02/24. Two patient identifiers checked. Call light placed in reach. Side rails up x 1. Bed placed in lowest position. Brakes of bed on. -- 09:36 08/02/24 JESSICA Rai R.N. 11:08/02/24. Patient ID band checked for patient name and birthdate. Blood samples drawn from the left wrist with 25g butterfly by me ; labeled in presence of the patient [...] bpm. -- 11:39 08/02/24 JESSICA Rai R.N. 11:08/02/24. Site #1 removed upon discharge. Catheter intact. Pressure dressing applied. -- 11:08/02/24 JESSICA Rai R.N. Departure time: 11:39 08/02/2024. Condition at departure: improved. No learning barriers present. Discharge instructions provided and reviewed with the patient. Reviewed warnings. Reviewed referral to an sanitation director. Patient verbalized unders (more content not included)... Normal [facility] ED ORDER SHEET (CPOE ONLY)on 08-02-2024 ED ORDER SHEET (CPOE ONLY) Order Sheet Order Sheet [facility] [address] [place] [address] [id number] 08/02/2024 Patient: LEONOR HAGER Sex: Female : 2000 Age: 23y MEASUREMENTS: Wt: 55.8 kg, Ht/Ezekiel: 66.0 in, BMI: 19.85 ALLERGIES: latex MEDICATION/IV/DRIP/F LUID ORDERS Order Description Priority Entered Acknowledged Completed LAB ORDERS Order Description Priority Entered Acknowledged Collected Completed CBC w Diff Stat Stat 10:08/02/2024 10:08/02/2024 10:08/02/2024 Jordi Figueroa R.N. Kobe Miller, R.N. CMP Stat Stat 10:08/02/2024 10:22 08/02/2024 10:22 08/02/2024 Jordi Figueroa R.N. Kobe Miller R.N. D-Dimer Stat Stat 10:09 08/02/2024 10:22 08/02/2024 10:08/02/2024 Jordi Figueroa R.N. Kobe Miller R.NVincenzo Urinalysis Stat Stat 10:08/02/2024 10:08/02/2024 10:08/02/2024 Jordi Figueroa R.N. Kobe Miller RVincenzoN. Troponin-I Stat Stat 10:08/02/2024 10:08/02/2024 10:08/02/2024 1 of 2 Order Sheet Jordi Figueroa R.N. Kobe Miller RBertha EKG - ED Stat Stat 10:08/02/2024 10:08/02/2024 10:08/02/2024 Jordi Figueroa R.N. Kobe Miller, R.N. DIAGNOSTIC STUDY ORDERS Order Description Priority Entered Acknowledged Completed STAFF ORDERS Order Description Priority Entered Acknowledged Collected Completed [Electronically signed by Edis Brooks M.D. (08/02/2024 12:39 EDT)] 2 of 2 Normal [facility] ED PHYSICIAN CLINICAL REPORT on 08-02-2024 ED PHYSICIAN CLINICAL REPORT Narrative Physician Clinical Narrative [facility] [address] [place] [address] [id number] 08/02/2024 09:04:00 Patient: LEONOR HAGER Sex: Female [...] 1.50 - 7.10 Final EDT 08/02/2024 10:41 [place] # 0.45 x10/UL 0.20 - 1.00 Final EDT 08/02/2024 10:41 EO # 0.12 x10/UL 0.00 - 0.50 Final EDT 08/02/2024 10:41 Baso # 0.04 x10/UL 0.00 - 0.10 Final EDT 08/02/2024 10:41 MANUAL DIFF N/A New Order EDT Narrative Lab Test Result Reference Status Received [...] - 1 (more content not included)... Normal [facility] ED SUPER BILLon 08-02-2024 ED [facility] [address] [place] [address] [id number] 08/02/2024 Patient: LEONOR HAGER Sex: Female : 2000 Age: 23y Item Professional Category Description Facility Code Code Quantity Fee Total Nurse/E/M EMERGENCY 295183 1 $0.00 $0.00 DEPARTMENT VISIT MODERATE SEVERITY (87479-20) Grand Total $0.00 Providers Edis Brooks M.D. Chief Complaint CHEST DISCOMFORT. Principal Diagnosis Acute dyspnea (unknown cause). Atypical chest pain. 1st trimester . 1 of 2 Superbill ICD-10 Codes R07.89: Other chest pain R06.09: Other forms of dyspnea 2 of 2 Normal [facility] ED VISIT SUMMARYon ED VISIT SUMMARY Visit Overview Visit Overview [address] [place] [address] [id number] 08/02/2024 Patient: LEONOR HAGER Sex: Female : 2000 Age: 23y 08/02/2024 12:39 PM EDT ED Arrival:09:04 08/02/2024 EDT Status: Recent Travel:no Language:eng Adv Directive:No Isolation Status: Ethnicity:N Fall Risk:no risk Infectious Disease Exposure:no Measurements:5'6 / 167.6 Self-Harm Status:risk Sepsis Screen:negative cm [...] ATYPICAL CHEST PAIN 3 of 3 Normal [facility] ED VITALS FLOW SHEETon 08-02 ED VITALS FLOW SHEET Vitals Vital Sign Flow Sheet [address] [place] [address] [id number] 08/02/2024 Patient: LEONOR HAGER Sex: Female : 2000 Age: 23y Measurements Wt: 55.8 kg, Ht/Ezekiel: 66.0 in, BMI: 19.85 Measured Time BP MAP HR RR O2Sat ETCO2 Temp Pain GCS RTS 11:17 08/02/2024 130/88 98 79 09:32 08/02/2024 155/94 114 100 16 99% 99.2 F 8 1 of 1 Normal [facility] TROPONINon 08-02-2024 HS TROPONIN <4.0 Normal 0.0 - 51.4 [facility] Comment on above: Performed By: #### 2 38905 #### [facility],[address] [place] [address] 81840 URINALYSISon 08-02-2024 Amorphous NONE Normal [facility] Comment on above: Performed By: #### 2 60588 #### [facility],[address] [place] [address] 43997 Bacteria TRACE Normal [facility] Comment on above: Performed By: #### 2 83067 #### [facility],[address] [place] [address] 65646 Bilirubin Ql (U) Negative Normal NORMAL: NEGATIVE [facility] Comment on above: Performed By: #### 2 69156 #### [facility],[address] [place], [place] [id number] Casts NONE Normal [facility] Comment on above: Performed By: #### 2 79448 #### [facility],[address] [place] [address] 61910 Clarity (U) clear Normal NORMAL: CLEAR [facility] Comment on above: Performed By: #### 2 12173 #### [facility],[address] [place] [address] 53312 Color (U) yellow Normal NORMAL: YELLOW [facility] Comment on above: Performed By: #### 2 71082 #### [facility],[address] [place] [address] 33955 Crystals LM Nom (Urine sed) NONE Normal [facility] Comment on above: Performed By: #### 2 14397 #### [facility],[address] [place] [address] 52369 Epi Cells OCC Normal [facility] Comment on above: Performed By: #### 2 20434 #### [facility],[address] [place] [address] 57816 Glucose Ql (U) NORM Normal NORMAL: NORMAL [facility] Comment on above: Performed By: #### 2 37420 #### [facility],[address] [place] [address] 99584 Hemoglobin Ql (U) Negative Normal NORMAL: NEGATIVE [facility] Comment on above: Performed By: #### 2 07807 #### [facility],[address] [place] [address] 97074 Ketone Negative Normal NORMAL: NEGATIVE [facility] Comment on above: Performed By: #### 2 01992 #### [facility],[address] [place] [address] 33262 Leukocytes 100 Abnormal NORMAL: NEGATIVE [facility] Comment on above: Performed By: #### 2 63332 #### [facility],[address] [place] [address] 76963 Mucous NONE Normal [facility] Comment on above: Performed By: #### 2 11422 #### [facility],[address] [place] [address] 35640 Nitrite Ql (U) Negative Normal NORMAL: NEGATIVE [facility] Comment on above: Performed By: #### 2 74501 #### [facility],[address] [place] [address] 90083 pH (U) 6.5 [pH] Normal NORMAL: 5.0-8.0 [facility] Comment on above: Performed By: #### 2 32983 #### [facility],[address] [place] [address] 24485 Protein Ql (U) Negative Normal NORMAL: NEGATIVE [facility] Comment on above: Performed By: #### 2 18201 #### [facility],[address] [place] [address] 70171 Rbc NONE Normal 0-3/hpf [facility] Comment on above: Performed By: #### 2 68767 #### [facility],[address] [place] [address] 13038 Sp Clarissa 1.015 Normal NORMAL: 1.010-1.030 [facility] Comment on above: Performed By: #### 2 60821 #### [facility],[address] [place] [address] 41563 Specimen Type R Normal [facility] Comment on above: Performed By: #### 2 57116 #### [facility],[address] [place], [place] [address] Urinalysis dipstick W Reflex Microscopic panel (U) SEE BELOW Normal [facility] Comment on above: Result Comment: MICR OSCOPIC Performed By: #### 2 69374 #### [facility],[address] [place] [address] Urobilinog NORM Normal NORMAL: NORMAL [facility] Comment on above: Performed By: #### 2 74053 #### [facility],[address] [place] [address] 63032 Wbc 1-5 Normal 0-5/hpf [facility] Comment on above: Performed By: #### 2 13998 #### [facility],[address] [place] [address] 45081 Yeast NONE Normal [facility] Comment on above: Performed By: #### 2 82707 #### [facility],[address] [place] [address] 61435 CNOVon 07-12-2024 CNOV Office Visit ([facility]) LEONOR ALARCON ([id number]) 1 F Date Time Provider Department 07/12/24 11:00 AM OBI MIN [facility] During your visit today, we recorded the following information about you: Temperature Pulse Respiration Blood pressure 98.8 degrees 128/minute 20/minute 162/102 Weight 59.1 kg Obi Min APRN.MAURICE 07/12/2024 11:01 AM Signed [facility] Subjective Leonor Alarcon is a 23 year old female. Patient presents with: Sore Throat: bodyaches, chills and fever x 2 days Patient came in with complaints of sore throat fever body aches and chills for 2 days. Patient denies any other symptoms. The history is provided by the patient. No employee operations examiner was used. Sore Throat Review of Systems [...] with fluids and rest Obi Min APRN.MAURICE MDM Procedures Allergies As of Date: 07/12/2024 (No Known Allergies) Date Reviewed: 07/12/2024 Reviewed by: Cayla Martinez MA - Fully Assessed Reason for Visit: Sore Throat [200] Cmt: bodyaches, chills and fever x 2 days Primary Visit Diagnosis:Sore throat [J02.9] Other Visit Diagnosis:URI, acute [J06.9] Order(s):STREP A MOLECULAR (POC) [[id number]] Order #: [id number]. #:[id number] Problem List As Of Date: 07/12/2024 (None) Encounter Status:Closed by OBI MIN on 07/12/24 Normal [facility] STREP A MOLECULAR (POC)on Procedural Control Valid [facility] Strep A (POCT) Negative Negative [facility] CNOVon 03-08-2024 CNOV Office Visit ([facility]) LEONOR ALARCON ([id number]) 1 F Date Time Provider Department 03/08/24 6:30 PM CHASE NICOLE [facility] During your visit today, we recorded the [...] MG TABLET Follow up with ENT or proposal specialist for further evaluation if symptoms fail to [...] 03/08/2024 Level of Service: OFFICE/OUTPATIENT ESTABLISHED MOD [facility] 30 MIN [61316] Letter Text Encounter Status:Closed by CHASE NICOLE on 03/08/24 [facility] 01-15-2024 [facility] [place] Telephone (UCTR) LEONOR ALARCON ([id number]) 1 F Date Time Provider Department 01/15/24 OBI MIN [facility] During your visit today, we recorded the following information about you: Obi Min APRN.[facility] 01/15/2024 7:18 AM Signed Positive for [...] Status:Closed by YISEL EUBANKS on 01/15/24 Normal [facility] CNOVon 01-14-2024 CNOV Office Visit (UCWSTR) LEONOR ALARCON ([id number]) 1 F Date Time Provider Department 01/14/24 7:30 PM TATIANA CISNEROS [facility] During your visit today, we recorded the following information about you: Temperature Pulse Respiration Blood pressure 102.3 degrees 122/minute 18/minute 135/87 Weight 55.3 kg Tatiana Cisneros APRN.[facility] 01/14/2024 7:44 PM Signed Subjective Fever Associated [...] analgesia. - Discussed expected course of illness MELCHOR Saenz Kathy, APRN.CNP 01/14/2024 7:44 PM Signed ASSESSMENT/PLAN: 1. [...] Discussed expected course of illness Tatiana Cisneros APRN.INVESTMENT BANKER Treatment for Viral Upper Respiratory Tract Infections [...] fluids help open respiratory and sinus passages Sublette Nasal Norman may offer relief of nasal and head congestion Kaleb's Vapor Rub may relieve congestion Tylenol and Advil help control fevers and headaches Salt water gargles help relieve sore throats Chloraceptic spray or throat lozenges may also help relieve sore throat symptoms Occasionally, viral infections turn into something more serious. You should see your doct (more content not included)... Normal [facility] COVID AND INFLUENZA A/B AND RSV PCR, ROUTINEon 01-14-2024 SARS-CoV-2 (COVID-19) RNA ENRIQUE+probe Ql (Unsp spec) SARS-COV-2 (AGENT OF COVID-19) RNA: Detected INFLUENZA A RNA: Not detected INFLUENZA B RNA: Not detected RESPIRATORY SYNCYTIAL VIRUS (RSV) RNA: Not detected Abnormal [facility] Comment on above: Performed By: #### C VFLRS #### [facility] CLIA [id number] [address] [place] [address] [place] CHEST AND LATERAL OR 2 VIEWS on 09-10-2022 CHEST AND LATERAL OR 2 VIEWS EXAM: Chest x-ray HISTORY: . Acute bronchitis . COMPARISON: None. TECHNIQUE: Total and lateral chest FINDINGS: Heart and vascularity are unremarkable. Lungs are free of focal infiltrates. No acute bony abnormality is appreciated. IMPRESSION: No acute heart or lung disease identified. Normal [facility] Vital Signs Date Time Vital Sign Value Performing Clinician Facility 02-24-2025 11:05-0400 Diastolic blood pressure 92 mm[Hg] No Primary Care Physician [facility] 02-24-2025 11:05-0400 Systolic blood pressure 135 mm[Hg] No Primary Care Physician [facility] 02-24-2025 10:58-0400 Body height 167.64 cm No Primary Care Physician [facility] 02-24-2025 10:58-0400 Body mass index (BMI) [Ratio] 26.3 kg/m2 No Primary Care Physician [facility] 02-24-2025 10:58-0400 Body weight 73.99 kg No Primary Care Physician [facility] 02-16-2025 08:42-0400 Body height 167.64 cm No Primary Care Physician [facility] 02-16-2025 08:40-0400 Body mass index (BMI) [Ratio] 25.9 kg/m2 No Primary Care Physician [facility] 02-16-2025 08:40-0400 Body weight 72.74 kg No Primary Care Physician [facility] 02-16-2025 08:40-0400 Diastolic blood pressure 92 mm[Hg] No Primary Care Physician [facility] 02-16-2025 08:40-0400 Systolic blood pressure 129 mm[Hg] No Primary Care Physician [facility] 02-05-2025 12:48-0400 Body temperature 98.6 [degF] No Primary Care Physician [facility] 02-05-2025 12:48-0400 Heart rate 100 /min No Primary Care Physician [facility] 02-05-2025 12:48-0400 Respiratory rate 18 /min No Primary Care Physician [facility] 02-05-2025 12:48-0400 SaO2% (BldA) [Mass fraction] 98 % No Primary Care Physician [facility] 02-05-2025 12:47-0400 Diastolic blood pressure 78 mm[Hg] No Primary Care Physician [facility] 02-05-2025 12:47-0400 Systolic blood pressure 129 mm[Hg] No Primary Care Physician [facility] 02-05-2025 12:23-0400 Body mass index (BMI) [Ratio] 25.8 kg/m2 No Primary Care Physician [facility] 02-05-2025 12:23-0400 Body weight 72.57 kg No Primary Care Physician [facility] 02-02-2025 08:55-0400 Body height 167.64 cm No Primary Care Physician [facility] 02-02-2025 08:52-0400 Body mass index (BMI) [Ratio] 25.8 kg/m2 No Primary Care Physician [facility] 02-02-2025 08:52-0400 Body weight 72.57 kg No Primary Care Physician [facility] 02-02-2025 08:52-0400 Diastolic blood pressure 87 mm[Hg] No Primary Care Physician [facility] 02-02-2025 08:52-0400 Systolic blood pressure 124 mm[Hg] No Primary Care Physician [facility] 01-27-2025 09:59-0400 Diastolic blood pressure 88 mm[Hg] No Primary Care Physician [facility] 01-27-2025 09:59-0400 Systolic blood pressure 121 mm[Hg] No Primary Care Physician [facility] 01-27-2025 09:35-0400 Body height 167.64 cm No Primary Care Physician [facility] 01-27-2025 09:35-0400 Body mass index (BMI) [Ratio] 25.3 kg/m2 No Primary Care Physician [facility] 01-27-2025 09:35-0400 Body weight 71.21 kg No Primary Care Physician [facility] 01-21-2025 15:15-0400 Diastolic blood pressure 79 mm[Hg] No Primary Care Physician [facility] 01-21-2025 15:15-0400 Heart rate 78 /min No Primary Care Physician [facility] 01-21-2025 15:15-0400 Systolic blood pressure 118 mm[Hg] No Primary Care Physician [facility] 01-21-2025 14:34-0400 SaO2% (BldA) [Mass fraction] 97 % No Primary Care Physician [facility] 01-21-2025 14:32-0400 Body temperature 99.2 [degF] No Primary Care Physician [facility] 01-21-2025 14:32-0400 Respiratory rate 16 /min No Primary Care Physician [facility] 01-21-2025 14:17-0400 Body height 167.64 cm No Primary Care Physician [facility] 01-21-2025 14:17-0400 Body mass index (BMI) [Ratio] 24.9 kg/m2 No Primary Care Physician [facility] 01-21-2025 14:17-0400 Body weight 69.96 kg No Primary Care Physician [facility] 01-17-2025 09:46-0400 Diastolic blood pressure 88 mm[Hg] No Primary Care Physician [facility] 01-17-2025 09:46-0400 Systolic blood pressure 139 mm[Hg] No Primary Care Physician [facility] 01-17-2025 09:25-0400 Body mass index (BMI) [Ratio] 24.9 kg/m2 No Primary Care Physician [facility] 01-17-2025 09:25-0400 Body weight 69.96 kg No Primary Care Physician [facility] 01-13-2025 13:04-0400 Body temperature 98.2 [degF] Aleida Tamirisa DO Work Phone: [facility] [employer] 01-13-2025 13:04-0400 Diastolic blood pressure 79 mm[Hg] Aleida Tamirisa DO Work Phone: [facility] [employer] 01-13-2025 13:04-0400 Heart rate 93 /min Aleida Tamirisa DO Work Phone: [facility] [employer] 01-13-2025 13:04-0400 Respiratory rate 20 /min Aleida Tamirisa DO Work Phone: [facility] [employer] 01-13-2025 13:04-0400 Systolic blood pressure 122 mm[Hg] Aleida Tamirisa DO Work Phone: [facility] [employer] 01-13-2025 07:46-0400 SaO2% (BldA) [Mass fraction] 99 % Aleida Tamirisa DO Work Phone: [facility] [employer] 01-11-2025 23:41-0400 Body height 167.6 cm Aleida Tamirisa DO Work Phone: [facility] [employer] 01-11-2025 23:41-0400 Body mass index (BMI) [Ratio] 24.86 kg/m2 Aleida Tamirisa DO Work Phone: [facility] [employer] 01-11-2025 23:41-0400 Body weight 69.85 kg Aleida Tamirisa DO Work Phone: [facility] 01-11-2025 18:29-0400 Diastolic blood pressure 56 mm[Hg] No Primary Care Physician [facility] 01-11-2025 18:29-0400 Heart rate 141 /min No Primary Care Physician [facility] 01-11-2025 18:29-0400 Systolic blood pressure 115 mm[Hg] No Primary Care Physician [facility] 01-11-2025 18:03-0400 Body temperature 98.1 [degF] No Primary Care Physician [facility] 01-11-2025 18:03-0400 Respiratory rate 16 /min No Primary Care Physician [facility] 01-11-2025 17:22-0400 SaO2% (BldA) [Mass fraction] 98 % No Primary Care Physician [facility] 01-11-2025 10:15-0400 Body height 167.64 cm No Primary Care Physician [facility] 01-11-2025 10:15-0400 Body mass index (BMI) [Ratio] 25.2 kg/m2 No Primary Care Physician [facility] 01-11-2025 10:15-0400 Body weight 70.9 kg No Primary Care Physician [facility] 01-11-2025 09:24-0400 Body height 167.64 cm No Primary Care Physician [facility] 01-11-2025 09:24-0400 Body mass index (BMI) [Ratio] 25.2 kg/m2 No Primary Care Physician [facility] 01-11-2025 09:24-0400 Body weight 70.81 kg No Primary Care Physician [facility] 01-11-2025 09:24-0400 Diastolic blood pressure 96 mm[Hg] No Primary Care Physician [facility] 01-11-2025 09:24-0400 Systolic blood pressure 144 mm[Hg] No Primary Care Physician [facility] 12-23-2024 09:25-0400 Body height 167.[address] Yudith Harper DO Work Phone: [facility] 12-23-2024 09:25-0400 Body mass index (BMI) [Ratio] 24.4 kg/m2 Dr. Yudith Harper DO Work Phone: [facility] 12-23-2024 09:25-0400 Body weight 68.[address] Yudith Harper DO Work Phone: [facility] 12-23-2024 09:25-0400 Diastolic blood pressure 87 mm[Hg] Dr. Yudith Harper DO Work Phone: [facility] 12-23-2024 09:25-0400 Systolic blood pressure 132 mm[Hg] Dr. Yudith Harper DO Work Phone: [facility] 12-16-2024 13:05-0400 Heart rate 74 /min Dr. Yudith Harper DO Work Phone: [facility] 12-16-2024 13:05-0400 SaO2% (BldA) [Mass fraction] 98 % Dr. Yudith Harper DO Work Phone: [facility] 12-16-2024 12:59-0400 Diastolic blood pressure 78 mm[Hg] Dr. Yudith Harper DO Work Phone: [facility] 12-16-2024 12:59-0400 Systolic blood pressure 114 mm[Hg] Dr. Yudith Harper DO Work Phone: [facility] 12-16-2024 12:19-0400 Body temperature 98.4 [degF] Dr. Yudith Harper DO Work Phone: [facility] 12-16-2024 12:19-0400 Respiratory rate 14 /min Dr. Yudith Harper DO Work Phone: [facility] 12-16-2024 12:15-0400 Body height 167.[address] Yudith Harper DO Work Phone: [facility] 12-16-2024 12:15-0400 Body mass index (BMI) [Ratio] 24.5 kg/m2 Dr. Yudith Harper DO Work Phone: [facility] 12-16-2024 12:15-0400 Body weight 68.[address] Yudith Harper DO Work Phone: [facility] 11-26-2024 09:45-0400 Body height 167.[address] Yudith Harper DO Work Phone: [facility] 11-26-2024 09:45-0400 Body mass index (BMI) [Ratio] 23.6 kg/m2 Dr. Yudith Harper DO Work Phone: [facility] 11-26-2024 09:45-0400 Body weight 66.[address] Yudith Harper DO Work Phone: [facility] 11-26-2024 09:45-0400 Diastolic blood pressure 86 mm[Hg] Dr. Yudith Harper DO Work Phone: [facility] 11-26-2024 09:45-0400 Systolic blood pressure 136 mm[Hg] Dr. Yudith Harper DO Work Phone: [facility] 09-27-2024 14:04-0400 Body height 167.[address] Yudith Harper DO Work Phone: [facility] 09-27-2024 14:04-0400 Body mass index (BMI) [Ratio] 21.6 kg/m2 Dr. Yudith Harper DO Work Phone: [facility] 09-27-2024 14:04-0400 Body weight 60.[address] Yudith Harper DO Work Phone: [facility] 09-27-2024 14:04-0400 Diastolic blood pressure 86 mm[Hg] Dr. Yudith Harper DO Work Phone: [facility] 09-27-2024 14:04-0400 Systolic blood pressure 119 mm[Hg] Dr. Yudith Harper DO Work Phone: [facility] 08-27-2024 10:39-0400 Body mass index (BMI) [Ratio] 21 kg/m2 Dr. Yudith Harper DO Work Phone: [facility] 08-27-2024 10:39-0400 Body weight 59.[address] Yudith Harper DO Work Phone: [facility] 08-27-2024 10:39-0400 Diastolic blood pressure 75 mm[Hg] Dr. Yudith Harper DO Work Phone: [facility] 08-27-2024 10:39-0400 Systolic blood pressure 126 mm[Hg] Dr. Yudith Harper DO Work Phone: [facility] 08-13-2024 09:05-0400 Body mass index (BMI) [Ratio] 21.3 kg/m2 Dr. Yudith Harper DO Work Phone: [facility] 08-13-2024 09:05-0400 Body weight 59.[address] Yudith Harper DO Work Phone: [facility] 08-13-2024 09:05-0400 Diastolic blood pressure 84 mm[Hg] Dr. Yudith Harper DO Work Phone: [facility] 08-13-2024 09:05-0400 Systolic blood pressure 122 mm[Hg] Dr. Yudith Harper DO Work Phone: [facility] 08-06-2024 10:46-0400 Body mass index (BMI) [Ratio] 21.3 kg/m2 Dr. Yudith Harper DO Work Phone: [facility] 08-06-2024 10:46-0400 Body weight 59.[address] Yudith Harper DO Work Phone: [facility] 08-06-2024 10:46-0400 Diastolic blood pressure 88 mm[Hg] Dr. Yudith Harper DO Work Phone: [facility] 08-06-2024 10:46-0400 Systolic blood pressure 136 mm[Hg] Dr. Yudith Harper DO Work Phone: [facility] 07-12-2024 10:47-0400 Body temperature 98.8 [degF] Obi Min APRN.INVESTMENT BANKER Work Phone: [facility] 07-12-2024 10:47-0400 Body weight 59.1 kg Obi Min APRN.INVESTMENT BANKER Work Phone: [facility] 07-12-2024 10:47-0400 Diastolic blood pressure 102 mm[Hg] Obi Min APRN.INVESTMENT BANKER Work Phone: [facility] 07-12-2024 10:47-0400 Heart rate 128 /min Obi Min APRN.INVESTMENT BANKER Work Phone: [facility] 07-12-2024 10:47-0400 Respiratory rate 20 /min Obi Min APRN.INVESTMENT BANKER Work Phone: [facility] 07-12-2024 10:47-0400 SaO2% (BldA) [Mass fraction] 99 % Obi Min APRN.INVESTMENT BANKER Work Phone: [facility] 07-12-2024 10:47-0400 Systolic blood pressure 162 mm[Hg] Obi Min APRN.INVESTMENT BANKER Work Phone: [facility] 03-08-2024 18:34-0500 Body temperature 98.01 [degF] Chase Nicole MD Work Phone: [facility] 03-08-2024 18:34-0500 Body weight 56.3 kg Chase Nicole MD Work Phone: [facility] 03-08-2024 18:34-0500 Diastolic blood pressure 80 mm[Hg] Chase Nicole MD Work Phone: [facility] 03-08-2024 18:34-0500 Heart rate 84 /min Chase Nicole MD Work Phone: [facility] 03-08-2024 18:34-0500 Respiratory rate 18 /min Chase Nicole MD Work Phone: [facility] 03-08-2024 18:34-0500 SaO2% (BldA) [Mass fraction] 98 % Chase Nicole MD Work Phone: [facility] 03-08-2024 18:34-0500 Systolic blood pressure 128 mm[Hg] Chase Nicole MD Work Phone: [facility] 01-14-2024 19:26-0400 Body temperature 102.31 [degF] Tatiana Praisler-Wood ANIMAL THERAPIST.INVESTMENT BANKER Work Phone: [facility] 01-14-2024 19:26-0400 Body weight 55.3 kg Tatiana Praisler-Wood ANIMAL THERAPIST.INVESTMENT BANKER Work Phone: [facility] 01-14-2024 19:26-0400 Diastolic blood pressure 87 mm[Hg] Tatiana Praisler-Wood ANIMAL THERAPIST.INVESTMENT BANKER Work Phone: [facility] 01-14-2024 19:26-0400 Heart rate 122 /min Tatiana Praisler-Wood ANIMAL THERAPIST.INVESTMENT BANKER Work Phone: [facility] 01-14-2024 19:26-0400 Respiratory rate 18 /min Tatiana Praisler-Wood ANIMAL THERAPIST.INVESTMENT BANKER Work Phone: [facility] 01-14-2024 19:26-0400 SaO2% (BldA) [Mass fraction] 98 % Tatiana Praisler-Wood ANIMAL THERAPIST.INVESTMENT BANKER Work Phone: [facility] 01-14-2024 19:26-0400 Systolic blood pressure 135 mm[Hg] Tatiana Praisler-Wood ANIMAL THERAPIST.INVESTMENT BANKER Work Phone: [facility] Encounters Encounter Date Encounter Type Care Provider Facility Start: 04-05-2025 ambulatory No Primary Car e Physician Facility:[facility] Start: 03-10-2025 ambulatory Yudith Alanis cility:[facility] Start: 02-28-2025 End: 02-28-2025 ambulatory NO PRIMARY CARE [facility] Start: 02-24-2025 End: 02-24-2025 ambulatory No Primary Care Physician Facility:[facility] Start: 02-16-2025 End: 02-16-[address] Yudith Harper DO -[facility] Work Phone: Start: 02-16-2025 End: 02-16-2025 ambulatory No Primary Care Physician -[facility] Start: 02-16-2025 End: 02-16-2025 ambulatory No Primary Care Physician Facility:[facility] Start: 02-05-2025 ambulatory No Primary Car e Physician Facility:[facility] Start: 02-05-2025 Non-patient / Non-visit Dr. Leonard Harper DO [facility] Start: 02-05-2025 End: 02-05-2025 ambulatory No Primary Care Physician -[facility] Start: 02-05-2025 End: 02-05-2025 Patient encounter procedure Mally Maldonado [facility] -[facility] Work Phone: Start: 02-02-2025 End: 02-02-[address] Catie Krishnan MD -[facility] Work Phone: Start: 02-02-2025 End: 02-02-2025 ambulatory No Primary Care Physician [facility] Start: 01-31-2025 End: 01-31-2025 ambulatory YUDITH CONNOR [facility] Start: 01-27-2025 End: 01-27-[address] Catie Krishnan MD -[facility] Work Phone: Start: 01-27-2025 End: 01-27-2025 ambulatory No Primary Care Physician -[facility] Start: 01-21-2025 ambulatory Mally Maldonado Facility :[facility] Start: 01-21-2025 Non-patient / Non-visit Mally Miller ms [facility] Start: 01-21-2025 End: 01-21-2025 ambulatory No Primary Care Physician -[facility] Start: 01-21-2025 End: 01-21-2025 Patient encounter procedure Mally Maldonado CNM -[facility] Work Phone: Start: 01-17-2025 End: 01-17-[address] aCtie Krishnan MD -[facility] Work Phone: Start: 01-17-2025 End: 01-17-2025 ambulatory No Primary Care Physician -[facility] Start: 01-11-2025 End: 01-13-[address] [facility] Start: 01-11-2025 End: 01-13-2025 Evaluation and management of inpatient Aleida P Tamirisa DO Work Phone: [facility] Start: 01-11-2025 ambulatory Butch Falcon NP Facil ity:[facility] Start: 01-11-2025 Non-patient / Non-visit Dr. Leonard Harper DO -[facility] Start: 01-11-2025 End: 01-11-2025 Patient encounter procedure Butch Falcon NP-C -[facility] Work Phone: Start: 01-11-2025 End: 01-11-2025 ambulatory No Primary Care Physician -[facility] Start: 12-23-2024 End: 12-23-2024 Patient encounter procedure Mally Maldonado CNM -[facility] Work Phone: Start: 12-23-2024 End: 12-23-[address] Yudith Harper DO Work Phone: -[facility] Start: 12-16-2024 ambulatory Catie Saxena lity:[facility] Start: 12-16-2024 Non-patient / Non-visit Dr. Amaury Krishnan MD -[facility] Start: 12-16-2024 End: 12-16-[address] Yudith Harper DO Work Phone: -[facility] Start: 12-16-2024 End: 12-16-[address] Catie Krishnan MD -[facility] Work Phone: Start: 11-26-2024 End: 11-26-[address] Catie Krishnan MD -[facility] Work Phone: Start: 11-26-2024 End: 11-26-[address] Yudith Harper DO Work Phone: -[facility] Start: 11-18-2024 End: 11-18-2024 ambulatory YUDITH Vora ESTUARDO [facility] Start: 09-28-2024 End: 09-28-[address] Yudith Harper DO Work Phone: [facility] Work Phone: Start: 09-28-2024 End: 09-28-2024 Patient encounter procedure Butch Falcon AWS DEVELOPER-C -Lab [facility] Start: 09-27-2024 End: 09-27-2024 Patient encounter procedure Butch Falcon AWS DEVELOPER-C -[facility] Work Phone: Start: 09-27-2024 End: 09-28-[address] Yudith Harper DO Work Phone: [facility] Work Phone: Start: 08-27-2024 End: 08-27-[address] Yudith Harper DO -[facility] Work Phone: Start: 08-27-2024 End: 08-27-[address] Yudith Harper DO -[facility] Work Phone: Start: 08-27-2024 End: 08-27-2024 ambulatory Yudith Harper Facility:[facility] Start: 08-27-2024 End: 08-27-2024 ambulatory Yudith Harper Facility:[facility] Start: 08-13-2024 End: 08-13-2024 Patient encounter procedure Mally Maldonado [facility] -[facility] Work Phone: Start: 08-13-2024 End: 08-13-2024 ambulatory Mally Maldonado Facility:[facility] Start: 08-06-2024 End: 08-06-2024 Patient encounter procedure Mally Maldonado [facility] Work Phone: Start: 08-06-2024 End: 08-06-2024 ambulatory Mally Maldonado Facility:[facility] Start: 08-02-2024 End: 08-02-2024 Emergency department patient visit EDIS Nur BROOKS [facility] Start: 07-12-2024 End: 07-12-2024 ambulatory Facility:[facility] Start: 07-12-2024 End: 07-12-2024 Patient encounter procedure Obi Min APRN.INVESTMENT BANKER Work Phone: [facility] Comment on above: Sore throat (Primary Dx); URI, acute Start: 03-08-2024 End: 03-08-2024 ambulatory Facility:[facility] Start: 03-08-2024 End: 03-08-2024 Office outpatient visit 25 minutes Chase Nicole MD Work Phone: [facility] Comment on above: Acute non-recurrent sinusitis, unspecified location (Primary Dx) Start: 01-15-2024 End: 01-15-2024 Telephone encounter Obi Min APRN.INVESTMENT BANKER Work Phone: [facility] Comment on above: Results Start: 01-14-2024 End: 01-14-2024 ambulatory Facility:[facility] Start: 01-14-2024 End: 01-14-2024 Patient encounter procedure Tatiana Cisneros APRN.INVESTMENT BANKER Work Phone: [facility] Comment on above: Viral URI with [...] 01-12-2025 Us preg uterus after 1st trimest 1 gestation Kenton Booker DO Work Phone: Start: 01-12-2025 Glucose quantitative blood xcpt reagent strip Mona Hughes DO Work Phone: Start: 01-11-2025 End: 01-11-2025 Iadna chlamydia trachomatis amplified probe tq Kenton Booker DO Work Phone: Start: 01-11-2025 Antibody screen JENNIF[facility] Comment on above: Performed By: #### L [id number] ####Apartment Community Manager: QUEENIE CASTRO ([phone])[facility] ([facility])[address] [place] [address] Start: 01-11-2025 ABO and Rh group [Ty pe] in Blood by Confirmatory method Kenton Booker DO Work Phone: Start: 01-11-2025 End: 01-11-2025 Blood typing serologic abo Kenton Booker DO Work Phone: Start: 01-11-2025 URINE HOLD CUP Kenton Booker DO Work Phone: Start: 01-11-2025 Ecg routine ecg w/le ast 12 lds trcg only w/o i&r Kenton Booker DO Work Phone: Start: 01-11-2025 End: 01-11-2025 Urnls dip stick/tablet reagent auto microscopy No Primary Care Physician Start: 01-11-2025 Neisseria gonorrhoea e DNA [Presence] in Cervical mucus by ENRIQUE with probe detection Mona Balbuenae DO Work Phone: Start: 01-11-2025 Urine culture [...] infectio us agent antibody bhupendra nos Mona Hughes DO Work Phone: Start: 09-28-2024 Hepatitis C [...] HCV Quant by PCR testing - HCVPCR #[id number] Non Reactive: < 0.8 Equivocal: >/= 0.8 [...] therefore, no HPV testing was performed.Performed at: [address] [address] [id number] Director: Suma Alegria MD, Phone: [phone] Start: 08-27-[address] Abigail Harper DO Work Phone: Start: 08-02-2024 Urinalysis EDIS BROOKS Comment on above: Result Comment: URIN ALYSIS Performed By: #### [id number] #### [facility],[address] [place] [address] Start: 07-12-2024 STREP A MOLECULAR (POC) Yulisa Franz APRN.INVESTMENT BANKER Work Phone: Plan of Treatment Date Care Activity Detail Author Start: 2050 Zoster Vaccines (1 of 2) Zoste r Vaccines (1 of 2) [facility] Start: 01-11-2026 Depression Screening Depression Scre [facility] Start: 02-24-2025 End: 02-24-2025 Patient encounter procedure -[facility] Work Phone: Start: 02-16-2025 End: 02-16-2025 Patient encounter procedure -[facility] Work Phone: Start: 02-08-2025 RSV Immunization for Adults (1 - Risk 1-dose series) RSV Immunization for Adults (1 - Risk 1-dose series) [facility] Start: 02-05-2025 Nonstress test [facility] Start: 02-05-2025 End: 02-05-2025 [facility] Start: 02-05-2025 Obstetric monitoring [facility] Start: 02-05-2025 Vital signs measurements [facility] Start: 01-27-2025 [facility] Start: 01-21-2025 Non-patient / Non-visit Non-pa tient / Non-visit -[facility] Start: 01-21-2025 Nonstress test [facility] Start: 01-21-2025 Obstetric monitoring [facility] Start: 01-21-2025 Vital signs measurements [facility] Start: 01-21-2025 [facility] Start: 01-21-2025 End: 01-21-2025 Patient encounter procedure Elevated blood pressure affecting in second trimester, antepartum -[facility] Work Phone: Start: 01-21-2025 Patient discharge [facility] Start: 01-11-2025 End: 01-11-2025 [facility] Start: 01-11-2025 Bacteria identified in Urine by Culture Urine Culture [facility] Start: 01-11-2025 Golimumab therapy THER/PROPH/D IAG INJ SC/IM [facility] Start: 01-11-2025 Intravenous infusion THER/PROP H/DIAG IV INF [facility] Start: 01-11-2025 Iv infusion therapy prophylaxis/dx ea hour [facility] Start: 01-11-2025 Medication administr ation: subcutaneous THER/PROPH/DIAG INJ SC/IM [facility] Start: 01-11-2025 Ther proph/dx njx ea seql iv push sbst/drug fac TX/PRO/DX [facility]J [facility] Start: 01-11-2025 Vedolizumab therapy THER/PROPH /DIAG IV INF [facility] Start: 01-11-2025 Fluid restriction [facility] Start: 01-11-2025 Nonstress test [facility] Start: 01-11-2025 Obstetric monitoring [facility] Start: 01-11-2025 Vital signs measurements [facility] Start: 01-11-2025 Comprehensive metabo lic 2000 panel - Serum or Plasma [facility] Start: 01-11-2025 Protein/Creatinine [ Ratio] in Urine [facility] Start: 01-11-2025 CBC W Auto Different ial panel - Blood [facility] Start: 01-11-2025 Measurement of gluco se 2 hours after glucose challenge for glucose tolerance test [facility] Start: 01-11-2025 Serologic test for syphilis [facility] Start: 01-11-2025 End: 01-11-2025 [facility] Start: 12-27-2024 COVID-19 Vaccine ( season) COVID-19 Vaccine ( season) [facility] Start: 12-27-2024 Influenza vaccination Influenza Vacc ine (#1) [facility] Start: 12-16-2024 Nonstress test [facility] Start: 12-16-2024 Obstetric monitoring [facility] Start: 12-16-2024 Vital signs measurements [facility] Start: 12-16-2024 [facility] Start: 12-28-2023 Covid-19 Vaccine ( season) Covid-19 Vaccine ( season) [facility] Start: 12-28-2023 Covid-19 Vaccine ( season) Covid-19 Vaccine ( season) [facility] Start: 12-28-2023 Influenza vaccination Influenza Vacc ine (#1) [facility] Start: 2021 Screening for malign ant neoplasm of cervix [facility] Start: 12-10-2019 DTaP/Tdap/Td Vaccine s (1 - Tdap) DTaP/Tdap/Td Vaccines (1 - Tdap) [facility] Start: 12-10-2019 Hepatitis B Vaccine (1 of 3 - 19+ 3-dose series) Hepatitis B Vaccine (1 of 3 - 19+ 3-dose series) [facility] Start: 12-10-2019 Hepatitis B Vaccines (1 of 3 - 19+ 3-dose series) Hepatitis B Vaccines (1 of 3 - 19+ 3-dose series) [facility] Start: 12-10-2019 Urine microalbumin profile DTa P,Tdap,Td Vaccine (1 - Tdap) [facility] Start: 2018 Anxiety Screening Anxiety Screening [facility] Start: 2018 Depression Screening Depression Scre ening [facility] Start: 2018 GC (Gonorrhea) Scree renetta () GC (Gonorrhea) Screening () [facility] Start: 2018 Hepatitis C screening Hepatitis C Sc reening [facility] Start: 2018 HIV screening HIV Screening [facility] Start: 2018 Screening for Chlamy leticia trachomatis Chlamydia Screening () [facility] Start: 2016 Meningococcal B Vacc ine (1 of 2 - Standard) Meningococcal B Vaccine (1 of 2 - Standard) [facility] Start: 2016 Meningococcal B Vacc ine: Consider Based On Risk (1 of 2 - Patient Seeks Protection) Meningococcal B Vaccine: Consider Based On Risk (1 of 2 - Patient Seeks Protection) [facility] Start: 12-10-2015 HPV Vaccine (1 - 3-d ose series) HPV Vaccine (1 - 3-dose series) [facility] Start: 12-10-2015 HPV Vaccines (1 - 3- dose series) HPV Vaccines (1 - 3-dose series) [facility] Start: 2014 Peds To Adult Transi tion Annual Assessment Peds To Adult Transition Annual Assessment [facility] Start: 2013 Varicella vaccination Varicell a Vaccines (1 of 2 - 13+ 2-dose series) [facility] Start: 2012 Peds To Adult Transi tion Initial Discussion Peds To Adult Transition Initial Discussion [facility] Start: 2001 MMR Vaccines (1 of 1 - Standard series) MMR Vaccines (1 of 1 - Standard series) [facility] Alanine aminotransfe rase [Enzymatic activity/volume] in Serum or Plasma [facility] Alanine aminotransfe rase [Enzymatic activity/volume] in Serum or Plasma [facility] Albumin [Mass/volume ] in Serum or Plasma [facility] Albumin [Mass/volume ] in Serum or Plasma [facility] Alkaline phosphatase [Enzymatic activity/volume] in Serum or Plasma [facility] Alkaline phosphatase [Enzymatic activity/volume] in Serum or Plasma [facility] Anion gap in Serum o r Plasma [facility] Anion gap in Serum o r Plasma [facility] Bilirubin, total measurement [facility] Bilirubin, total measurement [facility] BUN/Creatinine ratio [facility] BUN/Creatinine ratio [facility] Calcium [Mass/volume ] in Serum or Plasma [facility] Calcium [Mass/volume ] in Serum or Plasma [facility] Carbon dioxide, tota l [Moles/volume] in Central venous blood [facility] Carbon dioxide, tota l [Moles/volume] in Central venous blood [facility] CBC W Auto Different ial panel - Blood [facility] End: 01-12-2025 CMV Ab Panel, IgG & IgM [facility] [employer] Work Phone: Comment on above: Once (Lab) for 1 Occ urrences starting 01/12/2025 until 01/12/2025 Collect duration Time Ur [facility] Comprehensive metabo lic 2000 panel - Serum or Plasma [facility] COVID & INFLUENZA A/ B & RSV PCR, ROUTINE COVID & INFLUENZA A/B & RSV PCR, ROUTINE Microbiology Routine Viral URI with cough Ordered: 01/14/2024 [facility] Work Phone: Comment on above: Ordered: 01/14/2024 Creatine measurement [facility] Creatinine [Mass/vol ume] in Serum or Plasma [facility] Creatinine [Mass/vol ume] in Serum or Plasma [facility] Creatinine [Mass/vol ume] in Urine [facility] Creatinine [Mass/vol ume] in Urine collected for unspecified duration [facility] Creatinine renal kaila arance in 24 hour Urine and Serum or Plasma [facility] Erythrocyte mean corpuscular volume determination [facility] Erythrocyte mean corpuscular volume determination [facility] Glucose [Mass/volume ] in Serum or Plasma [facility] Glucose [Mass/volume ] in Serum or Plasma [facility] Hematocrit [Volume Fraction] of Blood [facility] Hematocrit [Volume Fraction] of Blood [facility] Hemoglobin [Mass/vol ume] in Blood [facility] Hemoglobin [Mass/vol ume] in Blood [facility] Hepatitis C antibody measurement [facility] Leukocytes [#/volume ] in Blood [facility] Leukocytes [#/volume ] in Blood [facility] Mean corpuscular hemoglobin concentration determination [facility] Mean corpuscular hemoglobin concentration determination [facility] Mean corpuscular hemoglobin determination [facility] Mean corpuscular hemoglobin determination [facility] Measurement of renal function [facility] Measurement of renal function [facility] Neutrophil count [facility] Neutrophil count [facility] Neutrophil percent differential count [facility] Neutrophil percent differential count [facility] Nonstress test nonstress test Procedures Routine 01/12/2025 6:09 AM EDT [facility] Patient Education [facility] Work Phone: Platelets [#/volume] in Blood [facility] Platelets [#/volume] in Blood [facility] Potassium measurement [facility] Potassium measurement [facility] Procedure [facility] Protein [Mass/time] in 24 hour Urine [facility] Protein [Mass/volume ] in 24 hour Urine [facility] Protein [Mass/volume ] in Urine [facility] Protein measurement, urine, quantitative 24 hour [facility] Protein/Creatinine [ Mass Ratio] in Urine [facility] Red blood cell count [facility] Red blood cell count [facility] Red cell distributio n width determination [facility] Red cell distributio n width determination [facility] Rubella IgG measurement [facility] Serologic test for syphilis [facility] Serum chloride measurement [facility] Serum chloride measurement [facility] End: 01-11-2025 sflt-1/plgf - Miscellaneous Test [facility] [employer] Work Phone: Comment on above: STAT (Lab) for 1 Occ urrences starting 01/11/2025 until 01/11/2025 Sodium measurement [facility] Sodium measurement [facility] Total protein measurement [facility] Total protein measurement [facility] End: 01-12-2025 Toxoplasma gondii antibody, IgG [facility] Comment on above: Once (Lab) for 1 Occ urrences starting 01/12/2025 until 01/12/2025 Urea nitrogen [Mass/volume] in Serum or Plasma [facility] Urea nitrogen [Mass/volume] in Serum or Plasma [facility] Urine culture [facility] Urine sample volume measurement [facility] Payers Date Payer Category Payer Commercial Managed C are - HMO MMO SUPERMED [id number] 2024 Unknown [id number] 2024 Medicaid [id number] 2024 Unknown [id number] 2024 Self-pay 2023 Blue [employer] Blue Shield BLUE CARD PPO OOS [id number] 2023 Unknown ANTHEM BLUE CARD PPO OOS [id number] 2023-Present [phone] [facility] [id number] [place] [address] PPO [id number] 2023 Unknown [id number] 2000 Unknown [id number] 2.16.840.1.294671.3.579.2. 651 2000 Unknown [id number] 2.16.840.1.295141.3.579.2. 479 2000 Unknown [id number] 2.16.840.1.592104.3.579.2. 479 2000 Unknown [id number] 2.16.840.1.725045.3.579.2. 479 Private Health Insurance . Unknown [id number] 2.16.840.1.309556.3.579.2. 462 Unknown [id number] 2.16.840.1.322822.3.579.2. 462 Unknown [id number] 2.16.840.1.751352.3.579.2. 462 Unknown [id number] 2.16.840.1.685186.3.579.2. 462 Unknown [id number] 2.16840.1.135251.3.579.2. 462 Unknown [id number] 2.16840.1.528515.3.579.2. 462 Unknown [id number] 2.16.840.1.438011.3.579.2. 462 Unknown [id number] 2.16.840.1.573844.3.579.2. 462 Unknown [id number] 2.16.840.1.467523.3.579.2. 462 Unknown [id number] 2.16.840.1.401394.3.579.2. 462 Unknown [id number] 2.16.840.1.677730.3.579.2. 462 Unknown [id number] 2.16.840.1.171587.3.579.2. 462 Unknown [id number] 2.16.840.1.519769.3.579.2. 462 Unknown [id number] 2.16.840.1.342492.3.579.2. 462 Unknown [id number] 2.16.840.1.941214.3.579.2. 462 Unknown [id number] 2.16.840.1.234107.3.579.2. 462 Unknown [id number] 2.16.840.1.948748.3.579.2. 462 Unknown [id number] 2.16.840.1.782948.3.579.2. 462 Unknown [id number] 2.16.840.1.583857.3.579.2. 462 Unknown [id number] 2.16.840.1.172487.3.579.2. 462 Unknown [id number] 2.16.840.1.230248.3.579.2. 462 Unknown [id number] 2.16.840.1.839285.3.579.2. 462 Unknown [id number] 2.16.840.1.648204.3.579.2. 462 Unknown [id number] 2.16.840.1.171783.3.579.2. 462 Unknown [id number] 2.16840.1.675457.3.579.2. 462 Unknown [id number] 2.16840.1.669839.3.579.2. 462 Social History Date Type Detail Facility Start: 01-14-2024 End: 08-27-2024 Tobacco smoking status NHIS Never smoked tobacco [facility] Start: 01-14-2024 End: 01-11-2025 Tobacco use and exposure Smokeless tobacco non-user [facility] Start: 01-14-2024 End: 01-11-2025 History of Social function [facility] Start: 01-14-2024 End: 01-11-2025 Tobacco use panel [facility] Start: 2000 Sex assigned at Not on file [facility] Start: 2000 Sex Assigned At Female [facility] Start: 01-11-2025 Alcoholic beverage intake Life time non-drinker (finding) [facility] Has the electric, Element ID, oil, or water [employer] threatened to shut off services in your home in past 12Mo No [facility] (I/We) worried wheth er (my/our) food would run out before (I/we) got money to buy more. Never true [facility] [employer] In the past 12 month s, has lack of transportation kept you from medical appointments or from getting medications? No [facility] Start: 07-13-2024 [facility] Start: 01-11-2025 Sex Female (finding) [facility] Functional Status Date Assessment Result Facility 01-11-2025 Patient Health Questionnaire 2 item (PHQ- 2) [Reported] [facility] Clinical Notes 01-14-2024 to 02-16-2025 Quincy Farias RN - 01/13/2025 6:40 PM EDTQuincy Farias RN - 01/13/2025 6:40 PM EDTMona Hughes DO - 01/13/2025 6:26 PM EDTDischasandra Quinteros - 01/13/2025 2:59 PM EDT Note Date & Type Note Facility 02-16-2025 Progress note [facility] 02-05-2025 History and physi roverto note [facility] 02-02-2025 Progress note [facility] 01-27-2025 Progress note [facility] 01-21-2025 Progress note [facility] 01-17-2025 Progress note [facility] 01-13-2025 Nurse Note Discharge instructions given to the patient at this time. labor precautions reviewed. Patient will follow up with her own physician in [place]. IV removed. Patient discharged to home ambulatory, accompanied by . [facility] 01-13-2025 Nurse Note Discharge instructions given to the patient at this time. labor precautions reviewed. Patient will follow up with her own physician in [place]. IV removed. Patient discharged to home ambulatory, accompanied by . documented in this encounter [facility] 01-13-2025 Note Department of Obstet rics and Gynecology [facility] Discharge Summary Admission on 01/11/2025 8:11 PM [...] sulfate for neuroprotection. She was transferred to [facility] for higher level of NICU care. Received BMZx2 01/11-01/12 and had BGTs trended through steroid window. BPP/ Growth 01/12: 8/, EFW 1168g (50%), AC 22%, Right lateral ventriculomegaly measuring 15 mm, however imaging was suboptimal due to position, SEEMA wnl. 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 Remained stable without further cervical change and was discharged home for follow up with [facility]. Meds: Medication List CONTINUE taking these medications 1 PO Discharge to: Home Discharge date: 01/13 Discharge Dx: tPTL Follow up appointment with your doctor/supply chain logistics manager - Call MFM to schedule US (prefers [place] office for US and virtual visit for MFM consult). Labs pending: CMV, toxo, SFLT:PlGF Activity - Normal Activity Call your doctor/supply chain logistics manager if you have: - leaking fluid - vaginal bleeding - regular contractions: More than 6 contractions in one hour - decreased movement - worsening abdominal (belly) pain - headache, blurry vision, increased swelling, upper abdominal pain Haley Davila MD 01/13/2025 6:27 PM [facility] 01-13-2025 Hospital course Narrative Images from the original note were not included. Department of Obstetrics and Gynecology [facility] Discharge Summary Admission on 01/11/2025 8:11 PM [...] sulfate for neuroprotection. She was transferred to [facility] for higher level of NICU care. Received BMZx2 01/11-01/12 and had BGTs trended through steroid window. BPP/ Growth 01/12: 12/03, EFW 1168g (50%), AC 22%, Right lateral ventriculomegaly measuring 15 mm, however imaging was suboptimal due to position, SEEMA wnl. 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 Remained stable without further cervical change and was [facility] Meds: Medication List CONTINUE taking these medications 1 PO Discharge to: Home Discharge date: 01/13 Discharge Dx: tPTL Follow up appointment with your doctor/supply chain logistics manager - Call MFM to schedule US (prefers [place] office for US and virtual visit for MFM consult). Labs pending: CMV, toxo, SFLT:PlGF Activity - Normal Activity Call your doctor/supply chain logistics manager if you have: - leaking fluid - vaginal bleeding - regular contractions: More than 6 contractions in one hour - decreased movement - worsening abdominal (belly) pain - headache, blurry vision, increased swelling, upper abdominal pain Haley Dvaila MD 01/13/2025 6:27 PM documented in this encounter [facility] 01-13-2025 Hospital Discharg e instructions Haley Davila MD - 01/13/2025 6:26 PM EDT Follow up appointment with your doctor/supply chain logistics manager [facility] Activity - Normal Activity Call your doctor/supply chain logistics manager if you have: - leaking fluid - [...] visit on 01/13/25 . Haley Davila MD [facility] documented in this encounter [facility] 01-13-2025 History of Presen t illness [...] 106/62 Pulse: 82 85 81 89 Resp: 18 17 16 Temp: 36.9 C (98.4 F) 37.1 C (98.7 F) 36.5 C (97.7 F) TempSrc: Oral Temporal Temporal SpO2: 98% 97% Weight: Height: Physical Exam: Gen: NAD, sleeping Medications: Current Medications[1] Assessment/Plan: Leonor Hager is a 24 y.o. female 28w2d Threatened Labor - Patient was transport from [place] due to blood pressure concerns while experiencing [...] to position, SEEMA wnl. 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 - CMV, Toxo [...] 6:03 AM 01/11/2025 Hospital Day: 2 Leonor Alley, 24 y.o. 28w1d Patient has been seen and examined. No questions or concerns. Mentions she has felt 1 contraction overnight, movement is at baseline, no vaginal bleeding or abnormal discharge. She did have a headache that was treated with Tylenol and otherwise denies chest pain, trouble breathing, visual changes. Vitals: 01/11/25 2040 097 01/11/25 2341 01/12/25 0425 BP: 116/80 119/75 Pulse: (!) 131 98 91 Resp: 18 18 Temp: 36.9 C (98.5 F) 36.9 C (98.5 F) TempSrc: Temporal Temporal SpO2: 100% 98% 97% Weight: 69.9 kg (154 lb) 69.9 kg (154 lb) Height: 1.676 m (5' 6) 1.676 m (5' 6) Physical Exam: Gen: NAD HEENT: Normocephalic, Atraumatic, [...] magnesium infusion for benefit, and transferred to [facility] unit - No questions or concerns [...] parts of this documentation was dictated using [employer] voice recognition software. As a result, errors [...] 12 mg 12 mg IntraMUSCular Once Kenton Booker, DO calcium gluconate 10 % injection 1 g 1 g IntraVENous PRN Kenton Booker DO influenza vaccine tiss-cult subunt (Flucelvax) STANDARD-DOSE injection 0.5 mL 0.5 mL IntraMUSCular Once Kenton Booker DO ondansetron ODT (Zofran-ODT) disintegrating tablet 4 mg 4 mg Oral q8h PRN Kenton Booker, Or ondansetron (Zofran) injection 4 mg 4 mg IntraVENous q6h PRN Kenton Booker, DO vitamin tablet 1 tablet Oral Daily Kenton Booker DO sodium chloride 0.9 % infusion 5-250 mL/hr [...] QTC Interval 01/11/2025 458 ms Final P [place] 01/11/2025 60 degrees Final QRS [place] 01/11/2025 63 degrees Final T Wave [place] 01/11/2025 13 degrees Final UT Interval 01/11/2025 157 ms Final ABO Grouping [...] 100 mg/dL Final Transport form Dr. Rincon, [facility]. Had presented for her Glucola screen. [...] today: 44 minutes. documented in this encounter [facility] 01-12-2025 Progress note Formatting of t his note might be different from the original. Date: 01/12/2025 Name: Leonor Hager : 2000 [facility] Patient Information Primary Caregiver: Self Accompanied by/Relationship: S/O;Family Marital Status: Support System: SO/Family Baptist/Cultural Factors: None Activities of Daily Living Communication: [...] place to sleep or slept in a longterm (including now)? No Transportation Needs Has the [...] N/A Developmental Delay: N/A Children's Services: N/A [facility] 01-12-2025 Miscellaneous Notes Formattin g of this note might be different from the original. Date: 01/12/2025 Name: Leonor Hager : 2000 [facility] Information [place] Patient Information Primary Caregiver: Self Accompanied by/Relationship: S/O;Family Marital Status: Support System: SO/Family Baptist/Cultural Factors: None Activities of Daily Living Communication: [...] place to sleep or slept in a longterm (including now)? No Transportation Needs Has the [...] Children's Services: N/A documented in this encounter [facility] 01-11-2025 History and physical note Department [...] for neuroprotection. She was then transferred to [facility] for admission for threatened labor. On arrival to [facility] OB Triage, she reports she is [...] Attestation Statement Patient admitted while I was corrections nurse. I discussed the management with the resident physician. I reviewed and agree with the findings and plan as documented in the note[facility] See [facility] 01/12/25. [facility] 01-11-2025 Note Attestation signed by Mona Hughes DO at 01/12/2025 12:30 PM Attending Supervising Physician's Attestation Statement Patient admitted while I was corrections nurse. I discussed the management with the resident physician. I reviewed and agree with the findings and plan as documented in the note[facility] 01/12/25. Department of Maternal [...] for neuroprotection. She was then transferred to [facility] for admission for threatened labor. On arrival to [facility] OB Triage, she reports she is [...] Membranes: Intact HSV Lesions: not applicable Cervix: 150/-3, thick, posterior, unchanged Contraction frequency: None Fetus: [...] 40 [] PPH (more content not included)... [facility] 01-11-2025 History and physical note Department [...] for neuroprotection. She was then transferred to [facility] for admission for threatened labor. On arrival to [facility] OB Triage, she reports she is [...] Membranes: Intact HSV Lesions: not applicable Cervix: 50/-3, thick, posterior, unchanged Contraction frequency: None Fetus: [...] Attestation Statement Patient admitted while I was corrections nurse. I discussed the management with the resident physician. I reviewed and agree with the findings and plan as documented in the note. Transport from Dr. Rincon, [facility]. See Attestation 01/12/25. 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 Garcia F M. Headache, elevated BP and proteinuria-labs [...] 01/11/25 at 1627 Visit Charges Inpatient E&M: 30390 Init Hosp L3 01/11/25 162<Electronically signed by Yudith Harper DO> Cosigner Signature (if applicable): cc: Dr. Yudith Harper DO; No Primary Care Physician ~* Signed [facility] Work Phone: 1(222) 544-680609-16-2025 History and physical note [facility] Medical Records Department [address] [place] [address] H&P Exam - UNIVERSAL WINDING MACHINE OPERATOR 01/11/25 1623 MR#: [id number] Acct: [id number] Name: LEONOR HAGER Rep #:[id number] : 2000 24 From: Yudith Harper DO PCP: Care Physician,No Primary Status :REG CLI Location: [place]-6 HPI - General HPI Narrative LEONOR HAGER, is a 24 y/o @ 28 weeks who presents to L&D from the office due to bp's in the 140'/90's, epigastric pain, and 7/10 headache. She denies visual changes. consultation with MFM recommended to start magnesium sulfate and steriods. 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 Yudith Harper DO; No Primary Care Physician~ Signed ADDENDUM by Dr. Yudith Harper DO on 01/11/25 at 1627 Visit Charges Inpatient E&M: 05099 Init Hosp 01/11/25 1627 Cosigner Signature (if applicable): cc: Dr. Yudith Harper DO; No Primary Care Physician ~* Signed [facility]09-16-2025 Radiology Diagnostic study note [facility] Imaging Services [address] [place], [place] [id number] Liver MR#: [id number] Acct: [id number] Name: LEONOR HAGER Rep #: [id number] : 2000 F 24 From: Shahla Osorio MD PCP: Care Physician,No Primary Status: REG CLI Study:Liver Date of Exam: 01/11/25 Exam# [id number] Ordering Dr: Mally Maldonado CNM PROCEDURE: LIVER [...] clinically indicated. Mild right hydronephrosis. Reading Location: [id number] CC: UVALDO Maldonado; No Primary Care Physician ~ Stroke Belt Sander Operator: Signed [facility]09-16-2025 Radiology Diagnostic study note [facility] Imaging Services [address] [place], [place] [id number] OB Limited With Biometrics MR#: [id number] Acct: [id number] Name: LEONOR HAEGR Rep #: [id number] : 2000 F 24 From: Albin Zhang MD PCP: Care Physician,No Primary Status: REG CLI Study:OB Limited With Biometrics Date of Exam : 01/11/25 Exam# [id number] Ordering Dr: Yudith Singh DO PROCEDURE: OB [...] 29 weeks and 2 days. Reading Location: [facility] CC: Dr. Yudith Harper, DO; No Primary Care Physician ~ Stroke Belt Sander Operator: Signed [facility]08-28-2025 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 occupational exposures/hazards: No pets and animals: [...] 3-4 times per week duration: 15-30 minutes/day melvina/rastafarian: Protestant seatbelt use: always do you feel safe at home: Yes additional social history: : [employer] - [employer]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 History 1 Elective abortions Hx Para 0 [...] Cosigner Signature: Date (if applicable) CC: ~ [facility]08-01-2025 Evaluation note* Diagnosis Onset Date Resolution [...] acute January 112024 9:30am Headache in acute [facility] 2024 9:30am acute December 9:30am Supervision of high-risk acute January 11, 2025 9:30am Elevated blood pressure affecting in second trimester, antepartum acute January 17, 2025 9:22am Epigastric pain during , antepartum acute January 17, 2025 9:22am Fibromyalgia acute January 172024 9:22am Headache in acute [facility] 2024 9:22am acute December 9:22am Supervision of high-risk acute January 17, 2025 9:22am Elevated blood pressure affecting in second trimester, antepartum acute January 21, 2025 2:05pm Epigastric pain during , antepartum acute January 21, 2025 2:05pm Fibromyalgia acute January 212024 2:05pm Headache in acute Dec 2:05pm acute December 2:05pm Supervision of high-risk acute January 21, 2025 2:05pm [facility] Work Phone: 1(199) 532-355308-01-2025 Evaluation note* Diagnosis Onset Date Resolution Status [...] acute January 112024 9:22am Headache in acute [facility] 2024 9:22am acute December 9:22am Supervision of [...] acute January 172024 9:22am Headache in acute [facility] 2024 9:22am acute December 9:22am Supervision of [...] in acute Jan 9:19am acute January 27 9:19am Supervision of high-risk acute January 27 9:19am [facility] Work Phone: 1(648) 879-154208-01-2025 Evaluation note* Diagnosis Onset Date Resolution Status [...] Epigastric pain during , antepartum resolved January d2024 9:19am Headache in resolved Jan 9:19am Anemia affecting i n third trimester acute February 02 8:48am Fibromyalgia acute February 02, 2025 8:48am acute February 02, 025 8:48am Supervision of high-risk acute February 02 8:48am Headache in resolved Jan 8:48am [facility] Work Phone: 1(439) 399-945508-01-2025 Evaluation note* Diagnosis Onset Date Resolution Status [...] Threatened labor acute February 16, 2025 8:34am [facility] Work Phone: 1(530) 613-700508-01-2025 Evaluation note* Diagnosis Onset Date Resolution Status [...] January 11, 2025 9:22am Headache in resolved Sep 2024 9:22am Fibromyalgia acute January 112024 9:30am [...] Threatened labor acute February 24, 2025 10:56am [facility] Work Phone: 1(177) 122-293406-02-2025 Evaluation note* Diagnosis Onset Date Resolution Status [...] of high-risk acute January 11, 2025 9:22am [facility] Work Phone: 1(276) 379-623406-02-2025 Evaluation note* Diagnosis Onset Date Resolution Status [...] of high-risk acute January 11, 2025 9:30am [facility] Work Phone: 1(107) 351-167406-02-2025 Evaluation note* Diagnosis Onset Date Resolution Status [...] acute January 112024 9:30am Headache in acute [facility] 2024 9:30am acute December 9:30am Supervision of high-risk acute January 11, 2025 9:30am Elevated blood pressure affecting in second trimester, antepartum acute January 17, 2025 9:22am Epigastric pain during , antepartum acute January 17, 2025 9:22am Fibromyalgia acute January 172024 9:22am Headache in acute [facility] 2024 9:22am acute December 9:22am Supervision of high-risk acute January 17, 2025 9:22am Elevated blood pressure affecting in second trimester, antepartum acute January 21, 2025 2:05pm Epigastric pain during , antepartum acute January 21, 2025 2:05pm Fibromyalgia acute January 212024 2:05pm Headache in acute [facility] 2024 2:05pm acute December 2:05pm Supervision of high-risk acute January 21, 2025 2:05pm [facility] Work Phone: 1([phone]) 690-272305-02-2025 Evaluation note* Diagnosis Onset Date Resolution Status [...] of high-risk acute November 26, 2024 9:37am [facility] Work Phone: 1([phone]) 644-610805-02-2025 Evaluation note* Diagnosis Onset Date Resolution Status [...] December 23, 2024 9:22am acute December 23, 9:22am Supervision of high-risk acute December 23 9:22am [facility] Work Phone: 1(304) 422-183404-11-2025 Evaluation note* Diagnosis Onset Date Resolution Status [...] 2 :01pm Tachycardia acute September 27 2:01pm [facility] Work Phone: 1(532) 480-957304-11-2025 Evaluation note* Diagnosis Onset Date Resolution Status [...] Nov 9:37am Tachycardia resolved November 26 9:37am [facility] Work Phone: 1(349) 712-991904-07-2025 NoteDischarge Instructions Discharge Summary [address] [place] [address] [phone] 08/02/2024 Patient: LEONOR HAGER Sex: Female : 2000 Age: 23y Thank you for visiting [facility]. You have been evaluated today by Edis Brooks M.D. for the following condition(s): Principal Diagnosis Acute dyspnea (unknown cause). Atypical chest pain. 1st trimester . INSTRUCTIONS No restrictions to activity. (check blood pressure occasionally; give readings to OG-SERVICE AIDE). Warnings: GENERAL WARNINGS: Return or contact your physician immediately if your condition worsens or changes unexpectedly, if not improving as expected, or if other problems arise. Follow-up: Follow up with an sanitation director in two days if not better. Patient Signature Facility [employer] 1 of 3 Discharge Instructions Date/Time General Instructions with ExitWriter [address] [place] [address] [phone] 08/02/2024 Patient: LEONOR HAGER Sex: Female : 2000 Age: 23y Thank you for visiting [facility]. You have been evaluated today by Edis Brooks M.D. for the following condition(s): Principal Diagnosis Acute dyspnea (unknown cause). Atypical chest pain. 1st trimester . INSTRUCTIONS No restrictions to activity. (check blood pressure occasionally; give readings to OG-SERVICE AIDE). Warnings: GENERAL WARNINGS: Return or contact your physician immediately if your condition worsens or changes unexpectedly, if not improving as expected, or if other problems arise. Follow-up: Follow up with an sanitation director in two days if not better. Activities Restrictions [address] [address] [phone] 08/02/2024 Patient: LEONOR HAGER Sex: Female : 2000 Age: 23y You have been given the following instructions regarding activity, work, and/or school. 2 of 3 Discharge Instructions No restrictions to activity. Facility [employer] [address] [place], [place] [address]903-17-2025 NoteHNO ID: [id number] Author: OBI MIN APRN.INVESTMENT BANKER Service: ? Author Type: Nurse Practitioner Type: Progress Notes Filed: 07/12/2024 11:01 Note [facility]: [facility] Subjective Leonor Alarcon is a 23 year old female. Patient presents with: Sore Throat: bodyaches, chills and fever x 2 days Patient came in with complaints of sore throat fever body aches and chills for 2 days. Patient denies any other symptoms. The history is provided by the patient. No employee operations examiner was used. Sore Throat Review of Systems [...] with fluids and rest Obi Min APRN.MAURICE [facility]03-17-2025 History of Present illness Narrative* [...] history is provided by the patient. No employee operations examiner was used. Sore Throat Review of Systems [...] with fluids and rest Obi Min APRN.MAURICE [facility] Procedures [facility] NoteHNO ID: [id number] Author: CHASE NICOLE MD Service: ? Author Type: Physician Type: Progress Notes Filed: 03/08/2024 19:02 Note Text: Patient presents with: Cough: Cough, chest congestion and sinus pressure off and on since week november HPI: Feeling sick recurrently for almost 3 [...] MG TABLET Follow up with ENT or proposal specialist for further evaluation if symptoms fail to improve. Chase Nicole, [facility]11-11-2024 History of Present illness Narrative* Chase Nicole [...] MG TABLET Follow up with ENT or proposal specialist for further evaluation if symptoms fail to improve. Chase Nicole MD [facility] Telephone encounter Note * Telephone Encounter - Yisel Eubanks RN - 01/15/2024 9:59 AM EDT Patient notified of results and provider's instructions. Patient verbalizes understanding. Yisel Eubanks RN [facility]09-19-2024 Miscellaneous Notes* Telephone Encounter - Yisel Eubanks RN - 01/15/2024 9:59 AM EDT Patient notified of results and provider's instructions. Patient verbalizes understanding. Yisel Eubanks RN * Telephone Encounter - Arleth Castillo MA - 01/15/2024 8:07 AM EDT Left VM instructing patient to return call to discuss results. Arleth Castillo MA * Telephone Encounter - Obi Min APRN.CNP - 01/15/2024 7:17 AM EDT Positive for covid. Negative for flu and rsv. Please treat with over the counter medication for supportive therapy. Thank you [facility] Telephone encounter Note * Telephone Encounter - Arleth Castillo MA - 01/15/2024 8:07 AM EDT Left VM instructing patient to return call to discuss results. Arleth Castillo MA [facility]09-19-2024 Telephone encounter Note* Telephone Encounter - Obi Min APRN.CNP - 01/15/2024 7:17 AM EDT Positive for covid. Negative for flu and rsv. Please treat with over the counter medication for supportive therapy. Thank you [facility] Work Phone: 1(140) 655-457409-18-2024 Instructions* Patient Instructions* Tatiana Cisneros APRN.CNP - 01/14/2024 7:44 PM EDT ASSESSMENT/PLAN: 1. Viral URI with cough - ICD9: 465.9, ICD10: J06.9 - Discussed viral etiology and rationale for treatment. - Symptomatic treatment with prn analgesia - Supportive care with fluids and rest - TXIMPVNPLHRCKBZ-EKQSWKVVKCJGKPO-VJ 2 MG-30 MG-10 MG/5 ML ORAL SYRUP [...] Discussed expected course of illness Tatiana Cisneros APRN.INVESTMENT BANKER Treatment for Viral Upper Respiratory Tract Infections [...] fluids help open respiratory and sinus passages [place] [facility] [place] may offer relief of nasal and head [...] worse rather than better [facility]09-[facility]-2024 NoteHNO ID: [id number] Author: TATIANA CISNEROS APRN.MAURICE Service: ? Author [...] ALLERGIES Patient has no known allergies. MEDICATIONS Hldqjpjdgmfycrp-Bxpkzpjhv-JX (BROMFED DM) 2-30-10 mg/5 mL syrup Take [...] Supportive care with fluids and rest - KAJNQTVYAIUQOYK-EPFHYSFFFDBUKYA-ZD 2 MG-30 MG-10 MG/5 ML ORAL SYRUP [...] Discussed expected course of illness Tatiana Cisneros APRN.[facility]09-18-2024 History of Present illness Narrative* Tatiana Cisneros [...] ALLERGIES Patient has no known allergies. MEDICATIONS Hgyycdxxrjxcmxl-Dvukqyjcw-RT (BROMFED DM) 2-30-10 mg/5 mL syrup Take [...] Supportive care with fluids and rest - OYVTVCGSRQZLAYG-ADCBECGBSYZHFWK-WJ 2 MG-30 MG-10 MG/5 ML ORAL SYRUP [...] Discussed expected course of illness Tatiana Cisneros APRN.INVESTMENT BANKER [facility] Diagnosis Viral URI with cough- Primary Acute upper respiratory infections of unspecified site documented in this encounter [facility] note* Diagnosis Acute non-recurrent sinusitis, unspecified location- Primary documented in this encounter [facility] note* Diagnosis Sore throat- Primary Acute pharyngitis URI, acute Acute upper respiratory infections of unspecified site documented in this encounter [facility] note* Diagnosis Threatened labor, antepartum- Primary Threatened premature labor, antepartum [facility] Author Yudith Montero [facility] Note Date/Time February 05, 2025 2 :00pm [facility] Medical Records Department [address] [place] [address] OB Triage Physician Note 02/05/25 1357 MR#: [id number] Acct: [id number] Name: LEONOR HAGER Rep #:[id number] : 2000 24 From: Yudith Harper DO PCP: Care Physician,No Primary Status :REG CLI Y Location: [place] [address]-1 HPI - General HPI Narrative LEONORBRIAN HAGER, is a 24 y/o @ 31 [...] 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 good fm. glucose next visit. 01/11/25 -?-?-?-?-?-?-?-?-?-?-?-?- [...] 80s, was admitted last week - at [facility] 01/27/25 -?-?-?-?-?-?-?-?-?-?-?-?- 30w 2d 157 lb 145/85 [...] Multi Select Codes Visit Charges Office Visit/Consults: 53809 OV L3 Est 20min Urinary/Genital Urinary/Genital CPT Codes: 44817-18 non-stress test Interp 02/05/25 1400 <Electronically signed by Yudith Denton DO> Date _ Yudith Harper DO Cosigner Signature (if applicable): Date CC: Dr. Yudith Harper DO; No Primary Care Physician ~ Signed [facility] Work Phone: Hospital Discharge instructionsAdditional Instructions Follow up in the office next week and notify provider of any symptoms if they arise.[facility] Work Phone: Progress note Author Mally Maldonado [facility] Note Date/Time December 23, 2024 9: 44am 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 occupational status: 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 occupational 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/hazards: No pets and animals: [...] 3-4 times per week duration: 15-30 minutes/day melvina/rastafarian: Protestant seatbelt use: always do you feel safe at home: Yes additional social history: : [employer] - [employer]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 Jose F M. Headache, elevated BP and proteinuria-labs and sent to . 01/17/25 -?-?-?-?-?-?-?-?-?-?-?-?- 28w 6d 154 lb 4 oz 155/94 135/97 139/88 Negative -?-?-?-?-?-?-?-?-?-?-?-?- Negative 145 29 -?-?-?-?-?-?-?-?-?-?-?-?- SM- no vb lof go od fm no regular ctx checking bps at home and 130s over 80s, was admitted last week - at [facility] First Trimester First Trimester: Discussed Results [...] Supervision of high risk in first trimester O Trimester: first trimester 28 weeks gestation of [...] Acute Qualifiers: Trimester: first trimester Qualified Code(s): O. - Supervision of high risk , unspecified, [...] Cosigner Signature: Date (if applicable) CC: ~ [facility] Work Phone: Progress note Author Mally Maldonado [facility] Note Date/Time January 21, 2025 3:27pm [facility] Medical Records Department [address] [place] [address] OB Triage Progress Note 01/21/25 1526 MR#: [id number] Acct: [id number] Name: LEONOR HAGER Rep #:[id number] : 2000 24 From: Mally Maldonado CNM PCP: Care Physician,No Primary Status :REG CLI Y DOS: Location: [place] [address]-1 Progress Notes Date of Service: 01/21/25 Progress Note: Patient presents for triage evaluation secondary to elevated BP at home at 28 weeks FHT: 140 Moderate variability reactive no decelerations category I tracing [place]: no Contractions Assessment and plan: normal Pre [...] Multi Select Codes Urinary/Genital Urinary/Genital CPT Codes: 04136-05 non-stress test Interp Assessment & Plan (1) [...] (6) Fibromyalgia: 01/21/25 1527 <Electronically signed by Mally soares CNM> Date _ Mally Maldonado CNM Cosigner Signature (if applicable): Date CC: UVALDO Maldonado; No Primary Care Physician ~ Signed [facility] Work Phone: Progress note Author Catie Krishnan [facility] Note Date/Time January 27, 2025 10 :19am [facility] [address] [place] [address], [address] [place] [address] OFFICE VISIT Date of Service: 01/27/25 MR#: [id number] Acct: [id number] Name: LEONOR HAGER Rep #: [id number] : 2000 Provider: Dr. 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 jose fm. glucose next visit. 01/11/25 -?-?-?-?-?-?-?-?-?-?-?-?- 28w 0d 156 lb 2 oz 144/96 Trac e -?-?-?-?-?--?-?-?-?-?-?-?- Negative 152 27 -?-?-?-?-?-?-?-?-?-?-?-?- MH-No VB. Jose F M. Headache, elevated BP and proteinuria-labs and sent to . 01/17/25 -?-?-?-?-?-?-?-?-?-?-?-?- 28w 6d 154 lb 4 oz 155/94 135/97 139/88 Negative -?-?-?-?-?-?-?-?-?-?-?-?- Negative 145 29 -?-?-?-?-?-?-?-?-?-?-?-?- SM- no vb lof go od fm no regular ctx checking bps at home and 130s over 80s, was admitted last week - at [facility] 01/27/25 -?-?-?-?-?-?-?-?-?-?-?-?- 30w 2d 157 lb 145/85 [...] Cosigner Signature: Date (if applicable) CC: ~ [facility] Work Phone: Progress note Author Catie Krishnan [facility] Note Date/Time February 02, 2025 9: 15am [facility] [address] [place] [address], [address] [place] [address] OFFICE VISIT Date of Service: 02/02/25 MR#: [id number] Acct: [id number] Name: LEONOR HAGER Rep #: [id number] : 2000 Provider: Dr. 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 occupational exposures/hazards: No pets and animals: [...] 3-4 times per week duration: 15-30 minutes/day melvina/rastafarian: Protestant seatbelt use: always do you feel safe at home: Yes additional social history: : [employer] - [employer]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 History 1 Elective abortions Hx Para 0 [...] 80s, was admitted last week - at [facility] 01/27/25 -?-?-?-?-?-?-?-?-?-?-?-?- 30w 2d 157 lb 145/85 [...] Orders POC Urinalysis 2 Dip (Clinic) Today 02/02/25 0915 <Electronically signed by Catie pierson MD> Date _ Catie Krishnan MD Cosigner Signature: Date (if applicable) CC: ~ [facility] Work Phone: Progress note Author Yudith Montero [facility] Note Date/Time February 16, 2025 1 0:12am [facility] [address], [address] [place] [address] OFFICE VISIT Date of Service: 02/16/25 MR#: [id number] Acct: [id number] Name: LEONOR HAGER Rep #: [id number] : 2000 Provider: Dr. 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 good fm. glucose next visit. 01/11/25 -?-?-?-?-?-?-?-?-?-?-?-?- [...] 80s, was admitted last week - at [facility] 01/27/25 -?-?-?-?-?-?-?-?-?-?-?-?- 30w 2d 157 lb 145/85 [...] PIH labs. growth ultrasound already ordered with [facility] in early early february. ACOG First [...] Cosigner Signature: Date (if applicable) CC: ~ [facility] Work Phone: Rehcwb for referral (narrative)No reason for referral information availableFabiola Hospital Work Phone: Rewqyk for visit Narrative* Auth/Cert (Routine) Specialty Diagnoses / Procedures Referred By Contac t Referred To Contact Diagnoses Threatened labor, antepartum Procedures . Mona Hughes, [place] [address] Phone: tel: fax: [facility] [address] [place] [address] Phone: tel: Referral ID Status Reason Start Date Expiration Date Visits Re quested Visits Authorized [id number] 1 1 [facility] Health Summary Purpose Family History No [...] 8:2 2am New OB, LMP 3/4, ZACK /August 27, 2024 10:23am 13wk ob September 27, [...] Supervision of high-risk Augus t 2024 9:22am Chief Complaint Admit Date 13wk [...] January 11, 2025 9:22am Supervision of high-risk Septe [facility] 2024 9:22am Chief Complaint Admit Date 13wk [...] January 11, 2025 9:22am [facility] 2024 9:22am Elevated blood pressure affe cting in second trimester, antepartum January 11, 2025 9:30am Epigastric pain during , antepa rtum January 11, 2025 9:30am Fibromyalgia January 11, 2025 9:30am Headache in January 11 9:30am January 11, 2025 9:30am Supervision [facility] high-risk [facility] 2024 9:30am Chief Complaint Admit Date 13wk [...] 23, 2024 9: 22am [facility] 9:22[facility] Elevated blood pressure affe cting in second trimester, antepartum January 11, 2025 9:22am Fibromyalgia January 11, 2025 9:22am Headache in January 11 9:22am January 11, 2025 9:22am Supervision of high-risk [facility] 2024 9:22am Elevated blood pressure affe cting in second trimester, antepartum January 11, 2025 9:30am Epigastric pain during , antepa rtum January 11, 2025 9:30am Fibromyalgia January 11, 2025 9:30am Headache in January 11 9:30am January 11, 2025 9:30am Supervision of [facility]-risk [facility] 2024 9:30am Elevated blood pressure affe cting in second trimester, antepartum January 17, 2025 9:22am Epigastric pain during , antepa rtum January 17, 2025 9:22am Fibromyalgia January 17, 2025 9:22am Headache in January 17 9:22am January 17, 2025 9:22am Supervision of high-risk Baljinder [facility] 2024 9:22am Elevated blood pressure affe cting in second trimester, antepartum January 21, 2025 2:05pm Epigastric pain during , antepa rtum January 21, 2025 2:05pm Fibromyalgia January 21, 2025 2:05pm Headache in January 21 2:05pm January 21, 2025 2:05pm Supervision of high-risk Baljinder [facility] 2024 2:05pm Chief Complaint Admit Date 21wk [...] 11, 2025 9:22am Supervision of high-risk Baljinder [facility] 2024 9:22am Elevated blood pressure affe cting in second trimester, antepartum January 11, 2025 9:30am Epigastric pain during , antepa rtum January 11, 2025 9:30am Fibromyalgia January 11, 2025 9:30am Headache in January 11 9:30am January 11, 2025 9:30am Supervision of high-risk Baljinder [facility] 2024 9:30am Elevated blood pressure affe cting in second trimester, antepartum January 17, 2025 9:22am Epigastric pain during , antepa rtum January 17, 2025 9:22am Fibromyalgia January 17, 2025 9:22am Headache in January 17 9:22am January 17, 2025 9:22am Supervision of high-risk Baljinder [facility] 2024 9:22am Elevated blood pressure affe cting in second trimester, antepartum January 21, 2025 2:05pm Epigastric pain during , antepa rtum January 21, 2025 2:05pm Fibromyalgia January 21, 2025 2:05pm Headache in January 21 2:05pm January 21, 2025 2:05pm [facility] 2024 2:05pm Chief Complaint Admit Date wk ob November [...] 11, 2025 9:22am Supervision of high-risk Baljinder [facility] 2024 9:22am Elevated blood pressure affe cting in second trimester, antepartum January 11, 2025 9:30am Epigastric pain during , antepa rtum January 11, 2025 9:30am Fibromyalgia January 11, 2025 9:30am Headache in January 11 9:30am January 11, 2025 9:30am Supervision of high-risk Baljinder [facility] 2024 9:30am Elevated blood pressure affe cting in second trimester, antepartum January 17, 2025 9:22am Epigastric pain during , antepa rtum January 17, 2025 9:22am Fibromyalgia January 17, 2025 9:22am Headache in January 17 9:22am January 17, 2025 9:22am Supervision of high-risk Baljinder [facility] 2024 9:22am Elevated blood pressure affe cting in second trimester, antepartum January 21, 2025 2:05pm Epigastric pain during , antepa rtum January 21, 2025 2:05pm Fibromyalgia January 21, 2025 2:05pm Headache in January 21 2:05pm January 21, 2025 2:05pm [facility] 2024 2:05pm Elevated blood pressure affe cting in second trimester, antepartum January 27, 2025 9:19am Epigastric pain during , antepa rtum January 27, 2025 9:19am Fibromyalgia January 27, 2025 9: 19am Headache in January 27, 2025 9:19am January 27, 2025 9: 19am Supervision of high-risk Octob 2024 9:19am Chief Complaint Admit Date wk ob November [...] 23, 2024 9: 22am [facility] 9:22[facility] Fibromyalgia January 11, 2025 9:22am January 11, 2025 9:22am Supervision of high-risk [facility] 2024 9:22am Elevated blood pressure affe cting in second trimester, antepartum January 11, 2025 9:22am Headache in January 11 9:22am Fibromyalgia January 11, 2025 9:30am January 11, 2025 9:30am Supervision of high-risk [facility] 2024 9:30am Elevated blood pressure affe cting in second trimester, antepartum January 11, 2025 9:30am Epigastric pain during , antepa rtum January 11, 2025 9:30am Headache in January 11 9:30am Fibromyalgia January 17, 2025 9:22am January 17, 2025 9:22am Supervision of high-risk [facility] 2024 9:22am Elevated blood pressure affe cting [...] 02, 2025 8:48am Chief Complaint Admit Date wk ob November [...] January 11, 2025 9:22am [facility] 2024 9:22am Elevated blood pressure affe cting in second trimester, antepartum January 11, 2025 9:22am Headache in January 11 9:22am Fibromyalgia January 11, 2025 9:30am January 11, 2025 9:30am Supervision of high-risk [facility] 2024 9:30am Elevated blood pressure affe cting in second trimester, antepartum January 11, 2025 9:30am Epigastric pain during , antepa rtum January 11, 2025 9:30am Headache in January 11 9:30am Fibromyalgia January 17, 2025 9:22am January 17, 2025 9:22am Supervision of high-risk [facility] 2024 9:22am Elevated blood pressure affe cting in second trimester, antepartum January 17, 2025 9:22am Epigastric pain during , antepa rtum January 17, 2025 9:22am Headache in January 17 9:22am Fibromyalgia January 21, 2025 2:05pm January 21, 2025 2:05pm Supervision of high-risk [facility] 2024 2:05pm Elevated blood pressure affe cting [...] 16, 025 8:34am Chief Complaint Admit Date 21wk ob November [...] 9:3 7am Supervision of high-risk Augus t 1st, 2025 9:37am Fibromyalgia December 23, 2024 9: 22am December 23, 2024 9: 22am Supervision of high-risk Augus t 2024 9:22am Fibromyalgia January 11, 2025 9:22am January 11, 2025 9:22am Supervision of high-risk Baljinder [facility] 2024 9:22am Elevated blood pressure affe cting in second trimester, antepartum January 11, 2025 9:22am Headache in January 11 9:22am Fibromyalgia January 11, 2025 9:30am January 11, 2025 9:30am [facility] 2024 9:30am Elevated blood pressure affe cting in second trimester, antepartum January 11, 2025 9:30am Epigastric pain during , antepa rtum January 11, 2025 9:30am Headache in January 11 9:30am Fibromyalgia January 17, 2025 9:22am January 17, 2025 9:22am Supervision of high-risk [facility] 2024 9:22am Elevated blood pressure affe cting in second trimester, antepartum January 17, 2025 9:22am Epigastric pain during , antepa rtum January 17, 2025 9:22am Headache in January 17 9:22am Fibromyalgia January 21, 2025 2:05pm January 21, 2025 2:05pm Supervision of high-risk [facility] 2024 2:05pm Elevated blood pressure affe cting [...] 02, 2025 8:48am Threatened labor February 05, 12:10pm Anemia affecting in third trim mala February 16, 2025 8:34am Fibromyalgia February 16, 2025 8 :34am February 16, 2025 8 :34am Supervision of high-risk Octob er 2024 8:34am Threatened labor February 16, 025 8:34am Anemia affecting in third trim mala February 24, 2025 10:56am Fibromyalgia February 24, 2025 1 0:56am February 24, 2025 1 0:56am Supervision of high-risk Octob er 2024 10:56am Threatened labor February 24, 025 10:56am Additional Source Comments INFORMATION SOURCE (unrecogn ized section and content) DATE CREATED AUTHOR 09/11/2022 [facility] DATE CREATED AUTHOR AUTHOR'S ORGANIZ ATION 07/14/2024 [facility] DATE CREATED AUTHOR AUTHOR'S ORGANIZ ATION 08/03/2024 [facility] DATE CREATED AUTHOR AUTHOR'S ORGANIZ ATION 01/17/2025 [facility] DATE CREATED AUTHOR AUTHOR'S ORGANIZ ATION 02/28/2025 [facility] DATE CREATED AUTHOR AUTHOR'S ORGANIZ ATION 03/05/2025 [facility] Source Comments (unrecognize d section and content) In the event this informatio n is protected by the Federal Confidentiality of Alcohol and Drug Abuse Patient Records regulations: The Federal rules restrict any use of the information to criminally investigate or prosecute any alcohol or drug abuse patient.[facility] Hospital[facility] the event this information is protected by the Federal Confidentiality of Alcohol and Drug Abuse Patient Records regulations: The Federal rules restrict any use of the information to criminally investigate or prosecute any alcohol or drug abuse patient.[facility] Hospital[facility] the event this information is protected by the Federal Confidentiality of Alcohol and Drug Abuse Patient Records regulations: The Federal rules restrict any use of the information to criminally investigate or prosecute any alcohol or drug abuse patient.[facility] Hospital[facility] the event this information is protected by the Federal Confidentiality of Alcohol and Drug Abuse Patient Records regulations: The Federal rules restrict any use of the information to criminally investigate or prosecute any alcohol or drug abuse patient.[facility] Reason for Visit (unrecogniz ed section and content) Reason Comments Fever Sinus congestion, ch ills, bodyaches x2 days Reason Comments Results Reason Comments Cough Cough, chest congest ion and sinus pressure off and on since week of November Reason Comments Sore Throat bodyaches, chills an [...] Inactive Member Role Status Dates Butch Falcon [employer], [employer]OPER-C Attending Provider Active Start: September 27, 2024 End: September 27, 2024 Team Status: Inactive Member Role Status Dates Butch Falcon [employer]EL[employer], [employer] DEVELOPER-C Attending Provider Active Start: September 28, 2024 [...] Inactive Member Role/Relationship Status Dates Butch Falcon [employer], [employer] DEVELOPER-C Attending Provider Active Start: September 27, 2024 End: September 27, 2024 Team Status: Inactive Member Role/Relationship Status Dates Butch Falcon [employer]EL[employer], [employer] DEVELOPER-C Attending Provider Active Start: September 28, 2024 [...] Inactive Member Role/Relationship Status Dates Butch Falcon [employer] DEVEL[employer], [employer] DEVELOPER-C Attending Provider Active Start: September 27, 2024 End: September 27, 2024 Team Status: Inactive Member Role/Relationship Status Dates Butch Falcon [employer] DEVELOPER, [employer] DEVELOPER-C Attending Provider Active Start: September 28, 2024 [...] Inactive Member Role/Relationship Status Dates Butch Falcon [employer] DEVEL[employer], [employer] DEVELOPER-C Attending Provider Active Start: September 27, 2024 End: September 27, 2024 Team Status: Inactive Member Role/Relationship Status Dates Butch Falcon [employer] DEVEL[employer], [employer] DEVELOPER-C Attending Provider Active Start: September 28, 2024 [...] Inactive Member Role/Relationship Status Dates Butch Falcon [employer] DEVEL[employer], [employer] DEVELOPER-C Attending Provider Active Start: January 11, 2025 End: January 11, 2025 No Primary Care Physician Primary Care Provider Active Start: January 11, 2025 End: January 11, 2025 No Primary Care Physician Referring Provider Active Start: January 11, 2025 End: January 11, 2025 Team Status: Active Member Role/Relationship Status Dates No Primary Care Physician Primary Care Provider Active Start: January 11, 2025 Butch Falcon [employer] DEVEL[employer], [employer] DEVELOPER-C Attending Provider Active Start: January 11, 2025 Butch Falcon [employer] DEVELOPER, [employer] DEVELOPER-C Referring Provider Active Start: January 11, 2025 Team Status: Inactive Member Role/Relationship Status Dates No Primary Care Physician Primary Care Provider Active Start: January 11, 2025 End: January 11, 2025 Butch Falcon [employer] DEVELOPER, [employer] DEVELOPER-C Referring Provider Active Start: January 11, 2025 End: January 11, 2025 Mally Maldonado CNM Attending Provider Active S tart: January 11, 2025 End: January 11, 2025 Team Status: Active Member Role/Relationship Status Dates No Primary Care Physician Primary Care Provider Active Start: January 11, 2025 Butch Falcon [employer] DEVELOPER, [employer] DEVELOPER-C Referring Provider Active Start: January 11, 2025 Mally Maldonado CNM Other Provider Active Start : January 11, 2025 Dr. Yudith Harper DO Attending Provider Active Start: December Team Status: Active Member Role/Relationship Status Dates No Primary Care Physician Primary care physician Activ e Team Status: Inactive Member Role/Relationship Status Dates Butch Falcon [employer] DEVELOPER, [employer] DEVELOPER-C Attending physician Active Start: September 27, 2024 End: September 27, 2024 Team Status: Inactive Member Role/Relationship Status Dates Butch Falcon [employer] DEVELOPER, [employer] DEVELOPER-C Attending physician Active Start: September 28, 2024 End: September 28, 2024 Team Status: Inactive Member Role/Relationship Status Dates Dr. Catie Krishnan MD Attending physician Active Start: November 26, 2024 End: November 26, 2024 Team Status: Inactive Member Role/Relationship Status Dates No Primary Care Physician Primary care physician Activ e Start: December 16, 2024 End: December 16, 2024 Dr. Catie Kirshnan MD Attending physician Active Start: December 16, [...] Inactive Member Role/Relationship Status Dates Butch Falcon [employer] DEVEL[employer], [employer] DEVELOPER-C Attending physician Active Start: January 11, 2025 [...] 2025 End: January 11, 2025 Butch Falcon [employer] DEVELOPER, [employer] DEVELOPER-C Referring Provider Active Start: January 11, 2025 End: January 11, 2025 Mally Maldonado CNM Attending physician Active Start: January 11, 2025 End: January 11, 2025 Team Status: Active Member Role/Relationship Status Dates No Primary Care Physician Primary care physician Activ e Start: January 11, 2025 Butch Falcon [employer] DEVELOPER, [employer] DEVELOPER-C Referring Provider Active Start: January 11, 2025 [...] Inactive Member Role/Relationship Status Dates Butch Falcon [employer] DEVELOPER, [employer] DEVELOPER-C Attending physician Active Start: September 28, 2024 [...] Member Role/Relationship Status Dates Butch Falcon NP, [employer] DEVELOPER-C Attending physician Active Start: January 11, 2025 [...] 2025 End: January 11, 2025 Butch Falcon [employer] DEVELOPER, [employer] DEVELOPER-C Referring Provider Active Start: January 11, 2025 End: January 11, 2025 Mally Maldonado CNM Attending physician Active Start: January 11, 2025 End: January 11, 2025 Team Status: Active Member Role/Relationship Status Dates No Primary Care Physician Primary care physician Activ e Start: January 11, 2025 Butch Falcon [employer] DEVELOPER, [employer] DEVELOPER-C Referring Provider Active Start: January 11, 2025 [...] Inactive Member Role/Relationship Status Dates Butch Falcon [employer] DEVELOPER, [employer] DEVELOPER-C Attending physician Active Start: January 11, 2025 [...] 2025 End: January 11, 2025 Butch Falcon AWS DEVELOPER, [employer] DEVELOPER-C Referring Provider Active Start: January 11, 2025 End: January 11, 2025 Mally Maldonado CNM Attending physician Active Start: January 11, 2025 End: January 11, 2025 Team Status: Active Member Role/Relationship Status Dates No Primary Care Physician Primary care physician Activ e Start: January 11, 2025 Butch Falcon AWS DEVELOPER, [employer] DEVELOPER-C Referring Provider Active Start: January 11, 2025 [...] February 16, 2025 Dr. Yudith Harper , Attending physician Acti ve Start: February 16, 2025 End: February 16, 2025 Team Status: Active Member Role/Relationship Status Dates No Primary Care Physician Primary care physician Activ e Start: February 16, 2025 Dr. Yudith Harper , Attending physician Acti ve Start: February 16, 2025 Team Status: Inactive Member Role/Relationship Status Dates No Primary Care Physician Primary care physician Activ e Start: February 16, 2025 End: February 16, 2025 Dr. Yudith Harper , Attending physician Acti ve Start: February 16, [...] KATRIN) 1110 (Given - Provider: Letty Bowen, RN) sodium chloride 0.9% (NS) flush 10 mL 10 mL, IntraVENous, Every 12 hours scheduled (2 times per day), First dose on Fri01/11/25 at 2145 0249 (Not Given - Provider: Queenie Veronica RN - Reason: IV Fluids Infusing)0929 (Given - Provider: Ingrid Justice RN)2201 (Given - Provider: Gabrielle Kelley RN) 1110 [...] (Rate/Dose Verify - Provider: Cayla Kirkland RN) 0145 (Stopped - Provider: Queenie Veronica RN) PRN [...] F (38 C), Starting on Fri01/12/25 at 215, Maximum dose of acetaminophen is 4000 mg [...] interruptions/ long duration, Starting on Fri01/11/25 at 5, For piggyback infusion, administer at same rate [...] PRN, line care, Starting on Fri01/11/25 at 5, After every IV line use Linked Groups Order Group 1: ondansetron ODT (Zofran-ODT) disintegrating tablet 4 mgJump to med 4 mg, Oral, Every 8 hours PRN, nausea, vomiting, Starting on Fri01/11/25 at 2134, 1st Line. If inadequate response within 60 [...] BE BASED ON THE PRIMARY CLINICAL RECORDS. [employer] [facility]. provides no warranty or guarantee of the accuracy or completeness of information in this document.
== END | disposition home or self-care (01) ==
LOC: LABSPEC 08:18
PROVIDERS: Referring Provider Obstetrics & Gynecology; Visit Provider Obstetrics & Gynecology
DX: R30.0 Dysuria (principal)